=== PATIENT | male | born 1940 | race Caucasian/White ===

== ENCOUNTER → 2017-09-28 11:10 | Outpatient (CLI) | payer MEDICARE, SELFPAY ==
[2017-09-28 12:13] LABS: Hematocrit 45.4 % (40-54); Hemoglobin 15.5 g/dl (13.0-16.5); Mean Corp Hgb Conc 34.1 g/gl (32-36); Mean Corpuscular Hgb 32.8 pg (27.0-32.0); Mean Platelet Vol. 11.3 fl (6.2-12.0); Platelet Count 131 K/mm3 (150-450); RBC Distribution Width CV 14.3 % (11.6-14.6); RBC Distribution Width SD 48.2 fl (35.1-43.9); Red Blood Count 4.73 M/mm3 (4.6-6.2); White Blood Count 6.4 K/mm3 (4.4-11.0)
[2017-09-28 12:28] LABS: Scan Indicated on CBC? Y/N NO
[2017-09-28 12:47] LABS: ALB/GLOB Ratio 1.2 RATIO (0.9-2.4); AST(SGOT) 21 U/L (15-37); Alanine Aminotransfer ALT/SGPT 20 U/L (16-61); Albumin, Serum 3.8 g/dL (3.2-5.0); Alkaline Phosphatase 65 U/L (45-117); Anion Gap 6 (5-15); BUN 15 mg/dL (7-18); BUN/Creat Ratio 17.5 RATIO (10-20); Calcium,Total 8.7 mg/dL (8.5-10.1); Chloride 104 mmol/L (98-107); Creatinine, Serum 0.86 mg/dL (0.70-1.30); EST Glomerular Filtration Rate 92 mL/min (>60); Est Glom Filt Rate - Afr Amer 111 mL/min (>60); Globulin 3.2 g/dL (2.2-4.2); Glucose 91 mg/dL (74-106); Potassium 3.6 mmol/L (3.5-5.1); Sodium Level 139 mmol/L (136-145); Thyroid Stim Hormone (TSH) 1.31 uIU/mL (0.358-3.74)
== END ==
PROVIDERS: Family Provider Family Medicine; PCP Family Medicine; Visit Provider Family Medicine
DX: I48.91 Unspecified atrial fibrillation (principal)
CPT/HCPCS: 36415; 80053; 84443; 85027

== ENCOUNTER → 2018-04-06 14:00 | Outpatient (CLI) | payer MEDICARE, SELFPAY ==
--- NOTE | 2018-04-06 14:00 | LES_PTH ---
PATIENT: DARRELL PRIETO LOC: [facility] U#:[id number] AGE/SX: 85/M ROOM: RE04/06/[address]: Dr. Kwesi Mayorga MD : 1940 BED: DIS: SPEC #: [id number] RECD: 04/06/18 16:10 STATUS: OG MARYLU #: [id number] JOSÉ MANUEL: 04/06/18 14:[address]: Kwesi Mayorga DEPT: SURGICAL PATHOLOGY RECD BY: Nohemi Yun ENTERED: 04/07/18 09:17 SP TYPE: Lesion OTHR DR: Dr. Van Barfield MD Tissues: Postauricular region Procedures: Surgery Specimen Level IV HEADER OPERATION: Excision, right postauricular lesion PRE-OP DIAGNOSIS: uncertain neoplasm TISSUE SUBMITTED: Right postauricular tissue MICROSCOPIC DIAGNOSIS Right postauricular skin lesion, excisional biopsy: Inflamed benign verrucous keratosis. SJ:jake 04/08/18 MICROSCOPIC DESCRIPTION Slides are reviewed. GROSS DESCRIPTION Received in fixative is one container labeled with the patient's name and designated right postauricular area. The specimen consists of a blanco-white skin ellipse measuring 2 x 1 cm and up to 0.3 cm in thickness. A suture is present at one tip, however, it is not oriented. The suture tip is assigned as 12 o'clock, opposite tip 6 o'clock, one peripheral margin including 3 o'clock and opposite peripheral margin 9 o'clock. The specimen is inked as follows: 12 o'clock tip - yellow, 6 o'clock tip - green, 3 o'clock margin - black and 9 o'clock margin - blue. There is a raised lesion on the surface measuring 0.5 x 0.5 x 0.2 cm. The entire specimen is submitted as follows: 1 - tip and portion of uninvolved skin, 2 - rest of the specimen. / CARLOS A:jake 04/07/18 TC:5 [facility]: [id number]
== END ==
PROVIDERS: Family Provider Family Medicine; PCP Family Medicine; Referring Provider Surgery; Visit Provider Surgery
DX: L82.0 Inflamed seborrheic keratosis (principal)
CPT/HCPCS: 88305

== ENCOUNTER → 2018-12-13 | Outpatient (CLI) | payer MEDICARE, SELFPAY ==
--- NOTE | 2018-12-13 12:46 | RAD_ITS ---
HISTORY: coughing up blood for a couple days EXAM: XR Chest 2 Views: COMPARISON: None FINDINGS: # of images incl. 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 Right IJ single-lumen port is accessed. Catheter tip terminates superimposed over the interstitial location of the SVC and the right main bronchus. Lungs are hyperexpanded with some flattening of the diaphragm Heart is enlarged. Kyphoscoliosis with multilevel degenerative disc disease. Shoulder arthritis. Sternal wires. Calcific plaque within the aortic arch. Enlarged central pulmonary arteries. Pulmonary vascularity is indistinct. Small pleural effusions. RAD/Chest PA and Lateral IMPRESSION: Evidence to suggest possible mild CHF. Query pulmonary artery hypertension. . at 0131 Reported and signed by: Marcello Holt MD Electronically Signed: Marcello Holt MD at 1:30 EDT Tel , Service support ,
[2018-12-13 14:17] LABS: Hematocrit 44.7 % (40-54); Hemoglobin 14.8 g/dl (13.0-16.5); Mean Corp Hgb Conc 33.1 g/gl (32-36); Mean Corpuscular Hgb 30.7 pg (27.0-32.0); Mean Corpuscular Volume 92.7 fL (80-94); Mean Platelet Vol. 11.3 fl (6.2-12.0); Platelet Count 148 K/mm3 (150-450); RBC Distribution Width CV 13.9 % (11.6-14.6); RBC Distribution Width SD 45.8 fl (35.1-43.9); Red Blood Count 4.82 M/mm3 (4.6-6.2); White Blood Count 6.9 K/mm3 (4.4-11.0)
[2018-12-13 14:19] LABS: Scan Indicated on CBC? Y/N NO
== END | disposition home or self-care (01) ==
PROVIDERS: Family Provider Family Medicine; PCP Family Medicine; Referring Provider Family Medicine; Visit Provider Family Medicine
DX: R05 Cough (principal); R04.2 Hemoptysis
CPT/HCPCS: 36415; 71046; 85027

== ENCOUNTER 2019-02-14 05:44 | Day surgery (SDC) | payer MEDICARE, SELFPAY ==
--- NOTE | 2019-02-03 01:17 | HP_ITS ---
Intake Vital Signs 02/03/19 Body Mass Index (BMI) 28.7 02/03/19 Height 5 ft 3 in 02/03/19 Weight: 171 lb 02/03/19 Body Mass Index (BMI) 30.2 02/03/19 Blood Pressure 129/76 H 02/03/19 Blood Pressure Location Rt brachial 02/03/19 Blood Pressure Position Sitting 02/03/19 Respiratory Rate 18 02/03/19 Pulse Rate 56 L 02/03/19 Pulse Source Monitor 02/03/19 Temperature 97.6 F L 02/03/19 Pulse Ox 94 02/03/19 Oxygen Delivery Method room air Intake Visit Reasons: C-Scope [facility] Patient 06/25/15 Chief Complaint: excision right ear lesion, left ear shave bx Electrical Laboratory Technician Required: No Is patient in pain?: No Allergies KALEIGH Inhibitors Adverse Reaction (Verified 02/03/19 13:00) Other levofloxacin [From Levaquin] Adverse Reaction (Verified 02/03/19 13:00) aching legs trouble walking Medications Carvedilol [Coreg (Beta Brenda)] 25 mg PO BID 08/11/13 [History Confirmed 02/03/19] Clonazepam [Klonopin] 0.5 mg PO TID 08/11/13 [History Confirmed 02/03/19] Digoxin [Lanoxin] 125 mcg PO DAILY 08/11/13 [History Confirmed 02/03/19] Furosemide [Lasix] 40 mg PO DAILY 08/11/13 [History Confirmed 02/03/19] Losartan Potassium [Cozaar] 100 mg PO DAILY 08/11/13 [History Confirmed 02/03/19] Multivitamins,Ther W-Minerals [Multivitamin With Minerals] 1 tab PO DAILY 08/11/13 [History Confirmed 02/03/19] Niacin SA [Niaspan] 1,000 mg PO QHS 08/11/13 [History Confirmed 02/03/19] Potassium Chloride [K-Dur] 10 meq PO DAILY 08/11/13 [History Confirmed 02/03/19] Ascorbic Acid [Vitamin C] 500 mg PO DAILY@0800 07/11/15 [History Confirmed 02/03/19] Aspirin E.C. [Ecotrin] 81 mg PO QHS 07/11/15 [History Confirmed 02/03/19] Warfarin [Coumadin ([facility])] 2.5 mg PO SUTUTHFRSA 01/15/16 [History Confirmed 02/03/19] Warfarin [Coumadin ([facility])] 3 mg PO MOWE 01/15/16 [History Confirmed 02/03/19] pravastatin 10 mg tablet 10 mg PO DAILY 02/03/19 [History Confirmed 02/03/19] [facility] Medical History (Updated 02/03/19 @ 13:15 by Kwesi Mayorga MD) Personal history of colonic polyps (Acute) Personal history of colon cancer, stage III (Acute) Skin lesion of face (Acute) CHF (congestive heart failure) (Chronic) Colon cancer (Chronic) Acute cholecystitis (Acute) History of stroke (Chronic) Hyperlipidemia (Chronic) Hypertension (Chronic) Coronary artery disease (Chronic) Surgical History (Updated 02/03/19 @ 12:59 by Angela Cox) 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) History of colonoscopy (Acute ~2017) History of cholecystectomy (Acute) History of colon surgery (Acute) History of heart bypass surgery (Acute) History of left hip replacement (Acute) History of left knee replacement (Acute) Hx of cataract surgery (Acute) Family History Father Hypertension Heart disease Social History (Updated 02/03/19 @ 13:17 by Kwesi Mayorga MD) Smoking Status: Never smoker alcohol intake: never substance use type: does not use HPI HPI HPI: DARRELL PRIETO, is a 78 M who presents to the office today for HPI HPI Surgical H&P: Yes HPI: DARRELL PRIETO, is a 78 M who presents to the office today for surgical consultation regarding a personal history of metastatic sigmoid colon cancer as well as a personal history of tubular adenomas and tubulovillous adenomas of the colon. The patient has atrial fibrillation. He is on chronic Coumadin anticoagulation. Most recently September 04, 2016 I performed a colonoscopy with polypectomy. He had a tortuous sigmoid colon. Small sessile appearing polyp was identified in the cecum. Cold forceps were used for that tubular adenoma. A pedunculated polyp was seen in the mid transverse colon. This was more difficult to remove. He was recently seen January 16, 2019 by Kristie Hitchcock in follow-up of his colon cancer. He has a history of coronary artery disease with coronary bypass grafting x5 in 2005. Atrial fibrillation and history of left ventricular thrombus and obstructive cardiovascular disease in 2006. Hyperlipidemia hypertension ischemic cardiopathy I and congestive heart failure. Generally 12/2015 had a laparoscopic sigmoid colectomy. 5 cm adenocarcinoma low- grade 3 cm from the staple margins 17 lymph nodes were removed and all had cancer. The patient had FOLFOX therapy. States that his most recent CEA level is 1.1. The patient was seen by cardiology December 23 at the [facility]. The patient is felt to remain stable with about without apparent symptoms to suggest angina cardiac decompensation paroxysmal atrial fibrillation or claudication. Ongoing medical treatment recommended. ROS General General: Yes colon cancer; no weight change, appetite, fatigue, breast cancer or weakness HEENT HEENT: Yes eye surgery; no difficulty swallowing, eye injury, swollen glands or hoarseness Endo Endocrine: No thyroid disease, diabetes mellitus, thyroid cancer, Hair loss, heat intolerance or cold intolerance Skin Skin: No rash or changing moles Breast Breast: No left breast lump, right breast lump, nipple discharge, breast pain, abnormal mammogram, abnormal US or breast enlargement Musc Musculoskeletal: Yes arthritis; no back problems, rheumatoid arthritis, gout or joint pain Cardio Cardiovascular: Yes pacemaker, heart disease, atrial fibrillation and high blood pressure; no murmur, heart attack, heart stent, palpitations, shortness of breat with exertion or chest pain Psych Psychiatric: No depression, anxiety or hearing voices Resp Respiratory: No shortness of breath, No sleep apnea, No cough, No COPD, No asthma, No emphysema, No wheezing Gastro Gastrointestinal: No abdominal pain, No nausea or vomiting, No diarrhea, No constipation, No blood in stool, No acid reflux, No hemorrhoids, No ulcers, No gallbladder problem, No black,tarry stools Bin Hematologic: No blood thinners, No blood disorders, No bleeding, No anemia, No blood clots Neuro Neurologic: No system reviewed and no additional complaints, except as docu, No as per HPI, No abnormal walking, No abnormal hearing, No abnormal movements, No abnormal speech, No behavioral changes, No burning sensations, No confusion, No seizure-like activity, No unsteadiness, No dizziness, No localized weakness, No frequent falls, No headache(s), No lack of coordination, No loss of vision, No memory loss, No numbness, No other visual disturbances, No radiating pain, No restless legs, No sensory deficit, No fainting, No tingling, No tremor(s), No weakness, No other Exam Const General: cooperative, comfortable, no acute distress Nutritional Appearance: overweight Orientation: alert, awake, oriented x3 Chest Breast Palpation: No nipple discharge Other: Well-healed median sternotomy incision Resp Effort & Inspection: normal respiratory effort Auscultation: clear to auscultation bilaterally Cardio Rate: regular rate Rhythm: regular rhythm Heart Sounds: no murmurs GI Palpation: soft, no hepatosplenomegaly Auscultation: normal bowel sounds Skin General: no rashes or lesions noted Extrem General: no calf tenderness bilaterally Psych Affect: normal affect Assessment & Plan Problems 1. Personal history of colon cancer, stage III Z85.038 2. Personal history of colonic polyps Z86.010 Plan I am recommending the patient colonoscopy with possible biopsy or polypectomy. On all of his endoscopic evaluations he has had polyps or malignancy identified. He is aware of the technique, benefit, risks and alternatives. Because of his cardiac risk we will utilize monitored anesthesia care. His previous bowel prep was borderline so we will offer a 2-day prep. We will have him hold his Coumadin 3 days preoperatively. He has had an opportunity to ask and have questions answered. We will schedule and proceed at his discretion. I appreciate the ongoing opportunity of assisting with his surgical care. TC: Dr. Sterling Bradley and Dr. Van Barfield and Kristie Hitchcock, [facility] Kwesi Mayorga M.D., F.A.C.S. Coding Level of Care Code Off vis,est,level 3 Diagnoses Personal history of colon cancer, stage III Z85.038 Personal history of colonic polyps Z86.010 02/03/19 1317 <Electronically signed by Kwesi sainz MD> Date _ Kwesi Mayorga MD I have re-examined the patient. There are no clinical changes since date of exam.
[2019-02-03 13:17] VITALS: BMI 28.7
--- NOTE | 2019-02-14 | COLBX_PTH ---
PATIENT: DARRELL PRIETO LOC: EN U#:[id number] AGE/SX: 78/M ROOM: RE02/14/[address]: Dr. Kwesi Mayorga MD : 1940 BED: DIS: 02/14/2019 SPEC #: [id number] RECD: 02/14/19 11:56 STATUS: OG MARYLU #: [id number] JOSÉ MANUEL: 02/14/19 00:[address]: Kwesi Mayorga DEPT: SURGICAL PATHOLOGY RECD BY: Ivan Lobato ENTERED: 02/14/19 11:59 SP TYPE: COLON BX WALLY DR: Dr. Van Barfield MD Tissues: A - Cecum, NOS B - Transverse colon C - Descending colon D - Sigmoid colon biopsy Procedures: Surgery Specimen Level IV HEADER OPERATION: Colonoscopy (MAC) PRE-OP DIAGNOSIS: Personal history colon polyps TISSUE SUBMITTED: A - Cecal polyp, B - Distal transverse colon polyps, C - Descending colon polyp, D - Proximal sigmoid colon polyp MICROSCOPIC DIAGNOSIS A. Cecal polyp: Fragments of tubular adenoma. B. Distal transverse colon polyp, biopsy: Fragments of tubular adenoma. Fragment of hyperplastic polyp, inflamed. C. Descending colon polyp, biopsy: Tubular adenoma. Hyperplastic polyp, inflamed. Fecal debris. D. Proximal sigmoid colon polyp, biopsy: Cauterized fragment of colonic mucosa with hyperplastic change. AM:jake 02/15/19 MICROSCOPIC DESCRIPTION Slides are reviewed. GROSS DESCRIPTION A - Received in fixative is one container labeled with the patient's name and designated cecal polyp. The specimen consists of multiple irregular fragments of blanco-pink soft tissue mixed with fecal material that in aggregate measure 2 x 0.1 x 0.1 cm. The specimen is totally submitted in one cassette. B - Received in fixative is one container labeled with the patient's name and designated distal transverse colon polyp. The specimen consists of multiple irregular fragments of light blanco soft tissue that in aggregate measure 1.5 x 0.2 x 0.1 cm. The specimen is totally submitted in one cassette. C - Received in fixative is one container labeled with the patient's name and designated descending colon polyp. The specimen consists of multiple irregular fragments of light blanco soft tissue mixed with fecal material that in aggregate measure 2 x 0.5 x 0.1 cm. The specimen is totally submitted in one cassette. D - Received in fixative is one container labeled with the patient's name and designated proximal sigmoid colon polyp. The specimen consists of one irregular fragment of light blanco soft tissue that measures 0.3 x 0.3 x 0.1 cm. A few fragments of fecal material are also noted. The specimen is totally submitted in one cassette. / CARLOS A:jake 02/14/19 TC:5 CPT: 42176 x4
[2019-02-14 06:13] VITALS: BP 89/59; PULSE 64; RESP 16; TEMP 36.4; O2SAT 95; BMI 28.8
[2019-02-14 06:56] LABS: Prothrombin Time (Protime)PT. 22.3 SECONDS (11.7-14.9)
[2019-02-14 07:31] VITALS: BP 89/49; BP 93/39; PULSE 57; RESP 16; TEMP 36.3; O2SAT 98
[2019-02-14 07:37] VITALS: BP 106/57; BP 89/49; PULSE 57; RESP 16; O2SAT 97
--- NOTE | 2019-02-14 07:38 | OP.ENDO_ITS ---
02/14/2019 Ghanshyam Barfield [address] [place] [address] Re : Colonoscopy procedure for Federico Coronel Dear Dr. Barfield This procedure was performed on Thursday, February 14, 2019. My impressions and recommendations are as follows: Impressions : - Non-thrombosed external hemorrhoids, non-thrombosed internal hemorrhoids, internal hemorrhoids that prolapse with straining, but spontaneously regress to the resting position (Grade II) and enlarged prostate found on digital rectal exam. - One 4 mm polyp in the cecum, removed with a cold snare. Resected and retrieved. - One 3 mm polyp in the proximal transverse colon, removed with a cold snare. Incomplete resection. Resected tissue not retrieved. - One 5 mm polyp in the distal transverse colon, removed with a cold snare. Resected and retrieved. - One 7 mm polyp in the distal transverse colon, removed with a cold biopsy forceps and removed with a hot snare. Resected and retrieved. Clip was placed. - One 4 mm polyp in the descending colon, removed with a hot snare. Resected and retrieved. - One 4 mm polyp in the proximal sigmoid colon, removed with a hot snare. Resected and retrieved. - Diverticulosis in the sigmoid colon. - Patent end-to-end colo-colonic anastomosis. Recommendations : - Discharge patient to home. - Resume previous diet. - Continue present medications. - Telephone my office for pathology results in 1 week. - Repeat colonoscopy in 2 years for surveillance based on pathology results. My findings are described in the full procedure note, which is enclosed. If I can be of further assistance, please feel free to contact me at Doctor phone number(s): Work: . Sincerely, Kwesi Mayorga MD 02/14/2019 7:37:42 AM This report has been signed electronically.
[2019-02-14 07:41] VITALS: BP 101/43; BP 89/49; PULSE 55; RESP 14; O2SAT 98
[2019-02-14 07:46] VITALS: BP 89/49; BP 94/49; PULSE 56; RESP 14; TEMP 36.2; O2SAT 97
[2019-02-14 08:32] VITALS: BP 89/49
== END 2019-02-14 08:32 | disposition home or self-care (01) ==
LOC: EN 05:44 → AC 05:45
PROVIDERS: Family Provider Family Medicine; PCP Family Medicine; Referring Provider Family Medicine; Visit Provider Surgery
PROC: 0DJD8ZZ Inspection of Lower Intestinal Tract, Via Natural or Artificial Opening Endoscopic (ICD-10-PCS; CPT 45378; principal; 2019-02-14 06:55)
DX: D12.0 Benign neoplasm of cecum (principal); D12.3 Benign neoplasm of transverse colon; D12.4 Benign neoplasm of descending colon; K51.40 Inflammatory polyps of colon without complications; Z98.0 Intestinal bypass and anastomosis status; Z86.010 Personal history of colon polyps; K64.1 Second degree hemorrhoids; K64.4 Residual hemorrhoidal skin tags; K57.30 Diverticulosis of large intestine without perforation or abscess without bleeding; N40.0 Benign prostatic hyperplasia without lower urinary tract symptoms; I11.0 Hypertensive heart disease with heart failure; I50.9 Heart failure, unspecified; I25.10 Atherosclerotic heart disease of native coronary artery without angina pectoris; I48.91 Unspecified atrial fibrillation; I25.5 Ischemic cardiomyopathy; M19.90 Unspecified osteoarthritis, unspecified site; E78.00 Pure hypercholesterolemia, unspecified; Z85.038 Personal history of other malignant neoplasm of large intestine; Z86.73 Personal history of transient ischemic attack (TIA), and cerebral infarction without residual deficits; Z87.19 Personal history of other diseases of the digestive system; Z90.49 Acquired absence of other specified parts of digestive tract; Z95.810 Presence of automatic (implantable) cardiac defibrillator; Z95.1 Presence of aortocoronary bypass graft; Z79.01 Long term (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 of 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; Z79.82 Long term (current) use of aspirin; Z79.899 Other long term (current) drug therapy
CPT/HCPCS: 45385; 85610; 88305; J7120; J2405

== ENCOUNTER → 2019-05-08 08:40 | Outpatient (CLI) | payer MEDICARE, SELFPAY ==
[2019-05-08 10:01] LABS: Hemoglobin 15.4 g/dL (13.0-16.5); Mean Corp Hgb Conc 32.1 g/dL (32-36); Mean Corpuscular Hgb 31.2 pg (27.0-32.0); Mean Corpuscular Volume 97.4 fL (80-94); Mean Platelet Vol. 11.3 fl (6.2-12.0); Platelet Count 161 K/mm3 (150-450); RBC Distribution Width CV 13.7 % (11.6-14.6); RBC Distribution Width SD 49.1 fl (35.1-43.9); Red Blood Count 4.93 M/mm3 (4.6-6.2); White Blood Count 7.1 K/mm3 (4.4-11.0)
[2019-05-08 10:40] LABS: ALB/GLOB Ratio 1.2 RATIO (0.9-2.4); AST(SGOT) 15 U/L (15-37); Alanine Aminotransfer ALT/SGPT 21 U/L (16-61); Albumin, Serum 3.8 g/dL (3.2-5.0); Alkaline Phosphatase 78 U/L (45-117); Anion Gap 5 (5-15); BUN 15 mg/dL (7-18); BUN/Creat Ratio 14.3 RATIO (10-20); Calcium,Total 8.9 mg/dL (8.5-10.1); Chloride 104 mmol/L (98-107); Cholesterol 128 mg/dL (200); Creatinine, Serum 1.05 mg/dL (0.70-1.30); EST Glomerular Filtration Rate 73 mL/min (>60); Est Glom Filt Rate - Afr Amer 88 mL/min (>60); Globulin 3.3 g/dL (2.2-4.2); Glucose 99 mg/dL (74-106); High Density Lipoprotein 34 mg/dL; Potassium 4.2 mmol/L (3.5-5.1); Protein, Total 7.1 g/dL (6.4-8.2); Sodium Level 143 mmol/L (136-145); Thyroid Stim Hormone (TSH) 1.22 uIU/mL (0.358-3.74); Triglycerides 156 mg/dL; Very Low Density Lipoprotein 31 mg/dL (5-40)
== END ==
PROVIDERS: Family Provider Family Medicine; PCP Family Medicine; Visit Provider Family Medicine
DX: I25.10 Atherosclerotic heart disease of native coronary artery without angina pectoris (principal)
CPT/HCPCS: 80053; 80061; 84443; 85027

== ENCOUNTER → 2019-11-29 14:21 | Outpatient (CLI) | payer MEDICARE, SELFPAY ==
--- NOTE | 2019-11-29 14:52 | VDLE_ITS ---
Reason For Study: Pain RIGHT LEFT GSV is normal. CFV is compressible, spontaneous, phasic, CFV is compressible, spontaneous, phasic, competent, and demonstrates normal competent and demonstrates normal augmentation. augmentation. FV is compressible, spontaneous, phasic, competent and demonstrates normal augmentation. POP V is compressible, spontaneous, phasic, competent and demonstrates normal augmentation. T/P Trunk is compressible. PTV is compressible. RT PerV is compressible. Large nonvascularized structure noted in theposterior proximal calf muslce. Procedure Exam performed in department. A preliminary report was called and/or faxed to [facility]. Interpretation Summary Deep veins of the right lower extremity are patent and compressible segmentally. There is no evidence of right lower extremity deep vein thrombosis. Valvular competence appears intact within the proximal deep venous system on the right . The right great saphenous vein appears patent and compressible segmentally. A large, non-vascular, heterogeneous structure is noted in the right, proximal, posterior calf muscle. This may represent a hematoma, though other pathologies should be excluded. Clinical correlation is advised. Ordering Physician: Ghanshyam Barfield Referring Physician: Ghanshyam Barfield Performed By: Kaitlyn Ramirez RVT
--- OUTSIDE RECORDS SUMMARY | 2020-04-23 14:42 | XMS RPT_ITS | CCD ---
:1940 External Reference #:[id number] Author Organization [facility] Care Team Providers Name Role Phone Julio Cesar Cesilia Unavailable Sascha Mckeon Unavailable NASEEM Unavailable Unavailable IMCA Unavailable Unavailable NASEEM Unavailable Unavailable NASEEM Unavailable Unavailable Marc Barfield Primary Care Provider Patrick Unavailable Allergies Reported Allergen Reaction(s) Severity Date of Onset Location Angiotensin Cough 09-03-2010 - [facility] Converting Enzyme System Rep ository (Kaleigh) Inhibitors Translations: [ KALEIGH INHIBITORS] levoFLOXacin Moderate, 07-08-2011 - [facility] ter Moderate Sports Medicine and Orthopaedics (8 [id number]) levoFLOXacin Swelling High 08-14-2005 - [facility] Translations: [ System Repos itory LEVOFLOXACIN] Medications Medication Name Sig Date Prescriber Location Ascorbic Acid ascorbic acid, vitamin C, [facility] Provider [facility] ([id number]) (VITAMIN C) 500 mg tablet Take 500 mg by mouth once daily. 0 Active Comment: Take 500 mg by mouth once da kristofer. aspirin BABY ASPIRIN 81 MG CHEW 07-08-2011 [facility] Sports ASPIRIN [id number] Medicine and Orthopaedics Dianne Alaniz ([id number]) aspirin 81 mg chewable tablet Ccf Provider [facility] Sports Medicine Take 81 mg by mouth once daily. 0 and Orthopaedics (75441) Active Comment: Take 81 mg by mouth once torin ly. carvedilol carvedilol (COREG) 25 07-03-[address] [facility] mg tablet Take 1 [facility] Sports Medi cine and tablet by mouth twice Orthop aedics (15647) daily. 180 tablet 3 07/03/2019 Active COREG 25 MG TABS 07-08-2011 [facility] Medicine CARVEDILOL [id number] Dianne luis Orthopaedics (15105) Katty Comment: Take 1 tablet by mouth twice daily. clonazePAM CLONAZEPAM 0.5 MG TABS 07-08-2011 [facility] Sports CLONAZEPAM Medici ne and Orthopaedics [id number] Dianne Alaniz ( 94835) Comment: Take 0.5 mg by mouth three t imes daily. digoxin digoxin (LANOXIN) 125 07-03-[address] [facility] mcg (0.125 mg) tablet [facility] Sports Medicine and Take 1 tablet by mouth Ortho paedics (69671) once daily. 90 tablet 3 07/03/2019 Active DIGOXIN TABS DIGOXIN TABS 07-08[place]2011 [facility] [id number] Dianne Alaniz and O rthopaedics (87787) DIGOXIN TABS DIGOXIN TABS 07-08-2011 [facility] [id number] Dianne Alaniz and O rthopaedics (94732) DIGOXIN TABS DIGOXIN TABS 07-08-2011 [facility] [id number] Dianne Alaniz and O rthopaedics (29822) Comment: Take 1 tablet by mouth once daily. fluticasone FLONASE 50 MCG/ACT SUSP 07-08-2011 - 03-19-2017 [facility] Sports Medicine and FLUTICASONE PROPIONATE Ortho paedics (13454) [id number] Alyson Harrell FLONASE 50 MCG/ACT SUSP 07-08-2011 [facility] Sports FLUTICASONE Medicine and Orthopaedics PROPIONATE [id number] Dianne Buckner (4 4691) Katty FLONASE 50 MCG/ACT SUSP 07-08-2011 - 03-19-2017 [facility] Sports Medicine a nd Orthopaedics FLUTICASONE PROPIONATE (42834) [id number] Alyson Harrell FLONASE 50 MCG/ACT SUSP 07-08-2011 [facility] Sports FLUTICASONE Medicine and Orthopaedics PROPIONATE [phone] Dianne M (4 4691) Stuartagley FLONASE 50 MCG/ACT SUSP 07-08-2011 [facility] Sports FLUTICASONE Medicine and Orthopaedics PROPIONATE [phone] Dianne M (4 4691) Stuartaglvicenta furosemide furosemide (LASIX) 40 07-03-2019 [facility] mg tablet Take 1 [facility] cine and tablet by mouth once Orthopa edics (26771) daily. 90 tablet 3 07/03/2019 [place] FUROSEMIDE TABS [place]08[place] [facility] [place] [id number] Dianne M and Orthopaedics (97212) Yeagley FUROSEMIDE TABS 07-08-2011 [facility]URO[place] TABS [id number] Dianne M and Orthopaedics (47616) Yeagley FUROSEMIDE TABS 07-08-2011 [facility] [place]URO[place] TABS [id number] Dianne M and Orthopaedics (73548) Katty Comment: Take 1 tablet by mouth once daily. Ipratropium Ipratropium [employer] [place] 08-16-2019 Rachelle ([facility]) [facility] (ATROVENT) 0.03 % [facility] (55208) nasal spray Use 2 Sprays in the nose once daily. 0 08/16/2019 Active Comment: Use 2 Sprays in the nose onc e daily. losartan losartan (COZAAR) 100 07-03-2019 [facility] mg tablet Take 1 [facility] and tablet by mouth once Orthopa edics (50634) daily. 90 tablet 3 07/03/2019 Active COZAAR 50 MG TABS 07-08-2011 [facility] Medicine LOSARTAN POTASSIUM [id number] Dianne and Orthopaedics (96771) Sita Alaniz Comment: Take 1 tablet by mouth once daily. multivitamin tablet multivitamin tablet Take 1 [facility] tablet by mouth once daily. (36938) 0 Active multivitamin tablet Take 1 tablet by mouth [facility] P [facility] (52186) once daily. 0 Active Comment: Take 1 tablet by mouth once daily. niacin NIACIN 500 MG TABS 07-08-2011 [facility] NIACIN Sports Med icine and [id number] Dianne Buckner Orthopaed [facility] (26758) Yeagley Potassium Chloride potassium chloride 07-03-2019 [facility] (KLOR-CON 10) 10 mEq [facility]ito (99460) tablet Indications: Essential hypertension Take 1 tablet by mouth once daily. 90 tablet 3 07/03/2019 Active Comment: Take 1 tablet by mouth once daily. tamsulosin tamsulosin ER (FLOMAX) 0.4 mg Take [facility] Pr [facility] (21346) 0.4 mg by mouth daily at bedtime. 0 Active Comment: Take 0.4 mg by mouth daily a t bedtime. warfarin COUMADIN 3 MG TABS 03-19-2017 [facility] Sports WARFARIN SODIUM [id number] Medicine and Orthopaedics Alyson Harrell (63515 ) Problems Active Problems Category Problem Name Status Date Location Acute cerebrovascular Cerebrovascular Active 06-18-2015 - [facility] disease accident (02892) Acute myocardial Myocardial infarction Active 01-15-2016 - [facility] infarction (88760) Cancer of colon Malignant tumor of Active 07-02-2015 - [facility] colon (11786) Cardiac dysrhythmias Atrial fibrillation Active 06-18-2015 - [facility] (70989) Conduction disorders Automatic implantable Active 02-28-2008 - [facility] cardiac defibrillator (41235 ) in situ Coronary Atherosclerotic heart Active 06-18-2015 - [facility] atherosclerosis and disease of chick[place] Sys tem (99351) other heart disease coronary artery without angina pectoris Disorders of lipid Dyslipidemia Active 11-16-2008 - [facility] metabolism (01753) Essential hypertension Essential hypertension Active 07-01-[address] [place] [address] (64897) Gout and other crystal Gout Active 07-01-2005 - [facility] arthropathies (84499) Heart valve disorders Mitral valve disorder Active 07-01-2005 - [facility] (32808) Osteoarthritis Degenerative joint Active 07-01-2005 - [facility] disease of ankle AND/OR Spor ts Medicine and foot Orthopaedics (4 5493) Other and ill-defined Acute ill-defined Active 07-01-2005 - 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 Unclassified Unknown / UNK(Unknown) Active 04-26-2017 - [facility] (47957) Unclassified SUMMARY [facility] (30945[facility] Unclassified Patient encounter Active 06-06-2013 - [facility] status (10883) Unclassified No current problems or Active [facility] disability Sports Medicine and Orthopaedics (4 4691) Past or Other Problems Category Problem Name Status Date Location Gastrointestinal Rectal hemorrhage Completed 05-14-2015 - [facility] hemorrhage (90548) Other connective tissue Arthrodesis status Completed 03-19-2017 - [facility] disease Sports Medicine and Orthopaedics (4 4691) Other non-traumatic Sacroiliac disorder Completed 08-19-2018 - [facility] joint disorders (02044) Other non-traumatic Ankle pain Completed 03-19-2017 - [facility] joint disorders Sports Medic ine and Orthopaedics (4 4691) Other non-traumatic Hip pain Completed 11-20-2011 - [place] joint disorders (66879) Pneumonia (except that Community acquired Completed 01-17-2016 - [facility] caused by tuberculosis pneumonia (4419 5) or sexually transmitted disease) Residual codes; Pain in buttock Completed 08-19-2018 - [facility] unclassified (03987) Superficial injury; Contusion of left Completed 09-28-2018 - [facility] contusion hip, initial (61700) encounter Results Result Name Value Range Unit Interpretation Flag Date Location No panel information on 2020-04-17 AV Delay Adaptive Paced 350 ms 2019 [facility] Minimum (ms) (93950) AV Delay Adaptive Sensed 325 ms 04-17 [facility] Minimum (ms) (64568) Battery Voltage 2.96 V 04-17-2020 [facility] (38636) BLANK _ 04-17-2020 [facility] (64174) Danny RA Pacing 2 V 04-17-2020 [facility] Amplitude (volts) (4 4195) Danny RA Pacing Polarity BI 04-17 [facility] (55723) Danny RA Sensing 0.5 mV 04-17-2020 [facility] Amplitude (mvolts) ( 48582) Danny RA Sensing BI 04-17-2020 [facility] Polarity (41578) Danny RV Pacing 2.5 V 04-17-2020 [facility] Amplitude (volts) (4 4195) Danny RV Pacing Polarity BI 04-17 [facility] (71931) Danny RV Sensing 0.5 mV 04-17-2020 [facility] Amplitude (mvolts) ( 70205) Danny RV Sensing BI 04-17-2020 [facility] Polarity (46666) Detection Configuration 1 - Zone 2019 [facility] (Vent) (69998) ICD FastVT DISABLED 04-17-2020 [place] DetectionStatus (441 95) ICD-AMS EPISODES 180 {beats}/min 04-17-2020 [facility] (43175) ICD-ATP Episodes (Vent) 0 2019 [facility] (63094) ICD-Device Mfg STJ 04-17-2020 [facility] (11955) ICD-LEADIMPEDANCEATRIAL 290 ohm 2019 [facility] (19157) ICD-Percent Pacing 1.6 % 04-17-2020 [facility] (Atrial) (56639) ICD-Percent Pacing 46 % 04-17-2020 [facility] (Vent) (45055) ICD-Shocks Aborted 0 04-17-2020 [facility] (Vent) (51303) QMJ-LYAOQS-KRTQNKKQX 0 0 [facility] (26315) ICD-SHOCKSABORTED 0 04-17-2020 [facility] (11803) ICD-SHOCKSDELIVEREDVENTR 0 04-17 [facility] ICULAR (29742) Implant Date 02/09/2017 04-17-2020 [facility] (96698) Implant Date 04/02/2009 04-17-2020 [facility] (56178) Lead Impedance (RV) 390 ohm 04-17-2020 [facility] (69046) Lead Impedance High 45 ohm 04-17-2020 [facility] Voltage (23867) [facility] 04-17-2020 [facility] (79745) Lead[facility]fg . [facility] 04-17-2020 [facility] (15768) Location RV 04-17-2020 [facility] (08012) Location RA 04-17-2020 [facility] (20830) Lower Rate (bpm) 50 {beats}/min 04-17-2020 [facility] (58560) Max Sensor Rate (bpm) 105 {beats}/min 2019 [facility] (01018) MDT_PROG_TACHY_ZONE_DETE ENABLED 04-17 [facility] CTIONS_STATUS (60621 ) Model 1699TC OptiSense 04-17-2020 [facility] (72889) Model 2357-40Q Fortify 04-17-2020 [facility] Jignesh HERBERT (72870) Model 7121Q Durata SJ4 04-17-2020 [facility] (04564) Pacing Mode DDD 04-17-2020 [facility] (00781) Serial Number [id number] 04-17-2020 [facility] (06819) Serial Number [id number] 04-17-2020 [facility] (76505) Serial Number [id number] 04-17-2020 [facility] (32487) Test Charge Energy 40 J 04-17-2020 [facility] (81917) Test Charge Time 9.1 s 04-17-2020 [facility] (99689) Therapy Status (Vent) Enabled 04-17-20 20 [facility] (71617) Thresh RA Capture 1 V 04-17-2020 [facility] Amplitude (volts) (4 5945) Thresh RA Capture 0.5 ms 04-17-2020 [facility] Duration (ms) (03988 ) Thresh RA Sensing 1.5 mV 04-17-2020 [facility] Amplitude (mvolts) ( 21416) Thresh RV Capture 1.25 V 04-17-2020 [facility] Amplitude (VOLTS) (4 4195) Thresh RV Capture 0.5 ms 04-17-2020 [facility] Duration (MS) (21793 ) Thresh RV Sensing 12 mV 04-17-2020 [facility] Amplitude (MVOLTS) ( 90705) Tracking Rate (bpm) 95 {beats}/min 04-17-20 [facility] (67433) VF Zone Detection 320 ms 04-17-2020 [facility] Interval (13217) VF Zone Therapy 0 ATP(s) + 6 04-17-2020 [facility] Configuration Shock(s) (75476 ) No panel information on 2020-04-16 [facility] (01986) progress on 2020-01 PROGRESS HNO ID: [id number] Normal 01-29-2020 [facility] Author: Kristie Hitchcock [place] ([id number]) Service: ? Author Type: Nurse Practitioner Type: Progress Notes Filed: 01/29/2020 2:44 PM Note Text: Chief Complaint Patient presents with: Established Patient HPI: Darrell Coronel is a 79 year old male who presents here t eli for follow up colon cancer. Per Dr. Bradley's previous note: H/o?CAD?(CABG x5 vessels 2005), atrial fibrillation, LV thro mbus, ASHD?(CABG x5 2005), hyperlipidemia, HTN, ischemic cardiomyo rolo?(ICD) and CHF. ?? He was seen by Dr. Mayorga for a scalp lesion and mentioned th at he was having rectal bleeding. He was scheduled for and underwent a colonoscopy (had not previously had one) on 06/25/2015. The patient was found to have diverticulosis of the sigmoid colon and descending colon. Tw o sessile polyps measuring 5 and 6 mm were observed at the hepatic fle xure. They were resected and retrieved. One 8 mm polyp was observed at the splenic flexure it was biopsied and a clip was placed. This polyp wa s pedunculated and was unable to be cauterized due to the ICD. There was a malignant-appearing mass in the distal sigmoid colon. It was injected at the distal margin. ?? CT scan done on 06/28/2015: Apple core type lesion seen within the sigmoid colon, with a ssociate irregularity. This lesion measures approximately 4-5 cm in l ength. Findings are concerning for colon carcinoma. No evidence for bowel obstruction. Prominence of the seminal vesicles as well as heterogeneity of the prostate gland. Consider correlation with PSA levels, at cli nical discretion. Sequela of remote granulomas disease, as above. Indeterminate 1.8 cm left adrenal nodule. Indeterminate pulmonary nodules seen within the left lower l obe, measuring up to 5 mm. ?? Patient underwent a laparoscopic sigmoid segmental colectomy on 07/17/2015. ?? Final pathology was significant for a 5 cm use in this adeno carcinoma of low grade. The tumor was noted to extend through the muscula ris propria into the subserosal adipose tissue. It was located 3 cm from the stapled resection margin. Perforation was not identified. Lymphovasc ular invasion was not identified. Tumor deposits were not identified. 17 l ymph nodes were removed. All 17 contained metastatic disease.?Immunohis tochemistry staining for MSI was negative. ?? Patient recovered well. ?? Previous therapy: 1) Adjuvant FOLFOX x9 cycles completed 01/08/2016. Patient pr esented to [facility] on 01/15/2016 with complaints of co ugh, increasing shortness of breath and wheezing. Found to have a n elevation of troponin and was admitted and started on Lasix. He was then transferred to the [facility]. He underwent a left heart catheterization which showed a patent ARIZMENDI-LAD as well as a patent SVG-RCA with left to right collaterals. Medical management was recom mended. He underwent a repeat echocardiogram which unfortunately showed a decline in EF from about 45% to about 20%. Therapy stopped following th at. ? No complaints. ?? Appetite:too good Energy level:Pretty good. Denies fevers or recent illness. Resp:denies?cough or sob?at rest Cardiac:denies chest pain/palpitations-followed by cardiolog y-off coumadin now GI:denies abd pain, n/v, moving bowels regularly :denies dysuria/hematuria Extrem:denies pain currently,?chronic?L LE pain,?R knee/hip? 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 Past medical history, appointments, medications, allergies r eviewed. No changes. EXAM: BP 125/68 Pulse (!) 57 Temp 36.5 ?C (97.7 ?F) (Temporal) Wt 73.5 kg (162 lb) BMI 29.16 kg/m? APPEARANCE Well appearing, alert, in no acute distress, well -hydrated, well nourished. HEART RRR with normal S1 and S2, no murmurs LUNG clear to auscultation LYMPH NODES No cervical lymphadenopathy, No supraclavicular lymphadenopathy and No axillary lymphadenopathy. ABDOMEN bowel sounds normoactive, soft, non-tender, non-dist ended, without organomegaly or palpable masses EXTREMITIES RLE chronic edema NEURO Awake, alert and oriented x 3, Normal gait and No invo luntary motions. SKIN Skin color, texture, turgor normal, no suspicious rashe s or lesions LABS: CEA: Pending ASSESSMENT/PLAN: 1. Malignant neoplasm of sigmoid colon (HCC) - ICD9: 153.3, ICD10: C18.7 Stage IIIC colon cancer. - ?No concerning findings on exam. - ?CEA pending. - Colonoscopy per Dr. Mayorga. - ?CT chest/abd/pelvis due in 2020. - ?Follow up in 6?months with CEA, after CT's-pending today' s CEA. - ?Pt. aware to call office with any questions/concerns. ? ? The patient indicates understanding of these issues an d agrees with the plan. ? ? All documentation from previous visit of 07/27/19-Dr. Carolina still/myself was copied and pasted, documentation has been reviewed and edite d as necessary for today's visit. ? Kristie Hitchcock APRN.POCKET ASSEMBLER ? cnovsp on 2020-01-11 0 CNOVSP Visit (SP) Office (NASEEM) Normal [place] [facility] DARRELL CORONEL ([id number]) 1940 M [place] Date Time Provider Department ([id number]) 01/29/20 10:30 AM KRISTIE HITCHCOCK During your visit today, we recorded the following informati on about you: Temperature Pulse Blood pressure Weight 97.7 degrees 57/minute 125/68 73.5 kg Kristie Hitchcock, MICHEL.POCKET ASSEMBLER 01/29/2020 2:44 PM Signed Chief Complaint Patient presents with: Established Patient HPI: Darrell Coronel is a 79 year old male who presents here today for follow up colon cancer. Per Dr. Bradley's previous note: H/o?CAD?(CABG x5 vessels 200 6), atrial fibrillation, LV thrombus, ASHD?(CABG x5 2005), hyperlipidemia, HTN, ischemic cardiomyopathy?(ICD) an d CHF. ?? He was seen by Dr. Mayorga for a scalp lesion and mei peralta that he was having rectal bleeding. He was scheduled for and underwent a colono scopy (had not previously had one) on 06/25. The patient was found to have diverticulosis of the sigmoid colon and thalia cending colon. Two sessile polyps measuring 5 and 6 mm were observed at the hepatic flexure. They were resected and retrieved. One 8 mm polyp was observed at the splenic flexure i t was biopsied and a clip was placed. This polyp was pedunculated and was unable to be cauterized due to the ICD. There was a malignant-appearing mass in the distal sigmoid colon. It was injected at the distal margin. ?? CT scan done on 06/28/2015: Apple core type lesion seen within the sigmoid colon, with a ssociate irregularity. This lesion measures approximately 4-5 cm in l ength. Findings are concerning for colon carcinoma. No evidence for bowel obstruction. Prominence of the seminal vesicles as well as heterogeneity of the prostate gland. Consider correlation with PSA levels, at cli nical discretion. Sequela of remote granulomas disease, as above. Indeterminate 1.8 cm left adrenal nodule. Indeterminate pulmonary nodules seen within the left lower l obe, measuring up to 5 mm. ?? Patient underwent a laparoscopic sigmoid segmental colectomy on 07/17/2015. ?? Final pathology was significant for a 5 cm use in this adenocarcinoma of low grade. The tumor was noted to extend through the muscu connor propria into the subserosal adipose tissue. It was located 3 cm from the stap led resection margin. Perforation was not identified. Lymphovascular invas ion was not identified. Tumor deposits were not identified. 17 lym ph nodes were removed. All 17 contained metastatic disease.?Imm unohistochemistry staining for MSI was negative. ?? Patient recovered well. ?? Previous therapy: 1) Adjuvant FOLFOX x9 cycles completed . Patient presented to [facility] on 01/15/2016 with complaints o f cough, increasing shortness of breath and wheezing. Amy d to have an elevation of troponin and was admitted and started on Lasix. He was then transferred to the main [facility]. He underwent a left heart catheterization which show ed a patent ARIZMENDI-LAD as well as a patent SVG-RCA with left to righ t collaterals. Medical management was recommended. He underwent a repeat echocardio gram which unfortunately showed a decline in EF from about 45% to about 20%. Therapy stopped following that. ? No complaints. ?? Appetite:too good Energy level:Pretty good. Denies fevers or recent illness. 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 Past medical history, appoin tments, medications, allergies reviewed. No changes. EXAM: BP 125/68 Pulse (!) 57 Temp 36.5 ?C (97.7 ?F) (Temporal) Wt 73.5 kg (162 lb) BMI 29.16 kg/m? APPEARANCE Well appearing, alert, in no acute distress, we ll-hydrated, well nourished. HEART RRR with normal S1 and S2, no murmurs LUNG clear to auscultation LYMPH NODES No cervical lymp hadenopathy, No supraclavicular lymphadenopathy and No axillary lymphadenopathy. ABDOMEN bowel sounds normoactive, soft, non-tender, non-dist ended, without organomegaly or palpable masses EXTREMITIES RLE chronic edema NEURO Awake, alert and oriented x 3, Normal gait and N o involuntary motions. SKIN Skin color, texture, turgor normal, no suspicious rashe s or lesions LABS: CEA: Pending ASSESSMENT/PLAN: 1. Malignant neoplasm of sigmoid colon (HCC) - ICD9: 153.3, ICD10: C18.7 Stage IIIC colon cancer. - ?No concerning findings on exam. - ?CEA pending. - Colonoscopy per Dr. Mayorga. - ?CT chest/abd/pelvis due in 2020. - ?Follow up in 6?months with CEA, after CT's-pending today' s CEA. - ?Pt. aware to call office with any questions/concerns. ? ? The patient indicates understanding of these iss ues and agrees with the plan. ? ? All documentation from previous visit of 07/27/19-Dr. Sita richmond/myself was copied and pasted, documentation trejo s been reviewed and edited as necessary for today's visit. ? Kristie Hitchcock APRN.POCKET ASSEMBLER ? Meenu Verma LPN 01/29/2020 10:32 AM Signed Est patient. Six month OV. 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 Discontinue saline lock post exam. If Pt. has a central line or IVAD, may access for administration according to maegan e specific nursing protocol. Once exam is complete flush line and de-ac cess according to line specific nursing protocol in the CT contra st administration guidelines link.Disp: 1 EachRfl: 0 enteric contrast (will be provided with radiology test)For C T CHESTABD/PEL W IVCON Routine order Administer, As Directed O ne Time Only, via Oral, Rectal, both Oral and Rectal, Enteric Tube, Stoma or Indwelling Catheter, Enteric Contrast as designated per ente baldo contrast guidelinesDisp: 1 EachRfl: 0 CREATININE BLD [SQCRET] Order #: [id number] FUTURE Follow-up and Disposition History Recorded Prescriptions as of 01/29/2020 Sig: TAMSULOSIN 0.4 MG CAPSULE Take 0.4 mg by mouth daily at* IPRATROPIUM BROMIDE 0.03 % NA* Use 2 Sprays in the nose once * CARVEDILOL 25 MG TABLET Take 1 tablet by mouth twice * LOSARTAN 100 MG TABLET Take 1 tablet by mouth once d* DIGOXIN 125 MCG (0.125 MG) TA* Take 1 tablet by mouth once d * FUROSEMIDE 40 MG TABLET Take 1 tablet by mouth once d* POTASSIUM CHLORIDE ER 10 MEQ * Take 1 tablet by mouth once d * CLONAZEPAM 0.5 MG TABLET Take 0.5 mg by mouth three ti* ASCORBIC ACID (VITAMIN C) 500* Take 500 mg by mouth once torin * MULTIVITAMIN TABLET Take 1 tablet by mouth once d* ASPIRIN 81 MG CHEWABLE TABLET Take 81 mg by mouth once trixie* IV CONTRAST (RADIOLOGY PROCED* CT Chest ABD/PEL-Inject, intr * ENTERIC CONTRAST (RADIOLOGY P* For CT CHESTABD/PEL W IVCON R * Problem List As Of Date 01/29/2020 Noted Resolved Coronary atherosclerosis of unspecified type of*07/01/2005 0 12/23/2018 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 Dyslipidemia [E78.5] More... Hypertension [I10] More... Atrial fibrillation [I48.20] 01/16/2016 01/17/2016 More... CAP (community acquired pneumonia) [J18.9] 01/17/2016 More... Colon cancer (HCC) [C18.9] 01/17/2016 More... SUMMARY 01/17/2016 More... 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 Six month OV. Meenu Verma LPN Encounter Status:Closed by KRISTIE HITCHCOCK POCKET ASSEMBLER on 01/29/20 cea on 2020-01-29 CEA 1.0 0.0-2.9 ng/mL Normal 01-29-2020 [facility] ([id number]) Comment: Result Comment: Test analyze d by the Wilian DxI method. Performed By: #### CEA ####C [facility] [place], [place] [phone] progress on 2019-12 PROGRESS HNO ID: [id number] Normal 01-01-2020 [facility] Author: Alexis Craft [place] ([id number]) Service: ? Author Type: Physician Type: Progress Notes Filed: 01/01/2020 1:59 PM Note Text: Alexis Craft MD Interventional Cardiology [address] [place] [id number] Chief Complaint Patient presents with: Heart Problem Cardiology follow up HISTORY OF PRESENT ILLNESS: Mr. Coronel is a 79 year old male seen today in follow-up t here are extensive cardiac history in the past history of bypass surg joby for severe three-vessel coronary artery disease in 2005 with 5 vessel b ypass graft done at the [facility] patient has severe LV syst olic dysfunction with ejection fraction 27% ICD inserted a year l ater Prior history of rectal bleed with history of stroke affecte d left side of his body patient using a cane Most recent ICD interrogation showed short-lived episodes of atrial tachycardia the longest one lasted 22nd he was started on Co umadin as a result of Coumadin he ended up with a large hematoma in his right lower leg Coumadin was discontinued Patient had no signs or symptoms of congestive heart failure No active angina Cardiac Risk Factors age (male over 45, female over 55), hyperlipidemia, history of smoking, hypertension, family history of CAD 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 PAST SURGICAL HISTORY Procedure Laterality Date - CABG, ARTERY-VEIN, FIVE 08/27/05 - COLONOSCOP W/ OR W/O [facility] SPEC 06-25-15 - COLONS W/REM POLYP HT BX 09/04/2016 - ICD (ICD) 03/19/06 and 04/03/09 - LAP COLECTOMY W COLOPROCTOST 07-17-15 - LAPAROSCOPIC CHOLEYCYSTECTOMY 08/12/2013 - PAST SURGICAL HISTORY OF 1993 and 1994 calcium deposits removed left ankle - REMOVAL MISSY VAD W PORT/PUMP Right 12/18/2016 Removal right IJ port - S PACK PHACO 30K [id number] Left - SKIN BX, 1 LESION 07/30/14 Punch bx left scalp - TOTAL HIP REPLACEMENT 10/23/11 Hip replacement, total left - TOTAL KNEE REPLACEMENT 2001 Knee replacement, total, right - TUNNEL VAD W SUB Q PORT >=5 Right 2-9-16 FAMILY HISTORY Problem Relation Age of Onset - None Mother age 84 - Coronary Artery Disease Father age 75 - Coronary Artery Disease Sister CABG age 77. age 79 of brain tumor. - None Sister - None Sister - None Brother Social History Tobacco Use - Smoking status: Never Smoker - Smokeless tobacco: Never Used Substance Use Topics - Alcohol use: No - Drug use: No ALLERGIES Allergen Reactions - Levaquin [Levofloxa* Swelling - Kaleigh Inhibitors Cough Medications: Current Outpatient Medications Medication Sig Dispense Refill - Ipratropium [employer] (ATROVENT) 0.03 % nasal spray Use 2 Sp rays in the nose once daily. - carvedilol (COREG) 25 mg tablet Take 1 tablet by mouth twi ce daily. 180 tablet 3 - losartan (COZAAR) 100 mg tablet Take 1 tablet by mouth onc e daily. 90 tablet 3 - digoxin (LANOXIN) 125 mcg (0.125 mg) tablet Take 1 tablet by mouth once daily. 90 tablet 3 - furosemide (LASIX) 40 mg tablet Take 1 tablet by mouth onc e daily. 90 tablet 3 - potassium chloride (KLOR-CON 10) 10 mEq tablet Take 1 tabl et by mouth once daily. 90 tablet 3 - clonazePAM (KLONOPIN) 0.5 mg tablet Take 0.5 mg by mouth t hree times daily. - ascorbic acid, vitamin C, (VITAMIN C) 500 mg tablet Take 5 00 mg by mouth once daily. - multivitamin tablet Take 1 tablet by mouth once daily. - aspirin 81 mg chewable tablet Take 81 mg by mouth once torin ly. No current facility-administered medications for this visit. Review of Systems Constitutional: Negative for chills, diaphoresis, fever, mal aise/fatigue and weight loss. HENT: Negative for congestion, ear discharge, ear pain, hear ing loss, nosebleeds, sinus pain, sore throat and tinnitus. Eyes: Negative for blurred vision, double vision, photophobi a, pain, discharge and redness. Respiratory: Negative for cough, hemoptysis, sputum producti on, shortness of breath, wheezing and stridor. Cardiovascular: Negative for chest pain, palpitations, ortho pnea, claudication, leg swelling and PND. Gastrointestinal: Negative for abdominal pain, blood in stoo l, constipation, diarrhea, heartburn, melena, nausea and vomiti ng. Genitourinary: Negative for dysuria, flank pain, frequency, hematuria and urgency. Musculoskeletal: Negative for back pain, falls, joint pain, myalgias and neck pain. Skin: Negative for itching and rash. Neurological: Negative for dizziness, tingling, tremors, sen teddy change, speech change, focal weakness, seizures, loss of consciousne ss, weakness and headaches. Endo/Heme/Allergies: Negative for environmental allergies an d polydipsia. Does not bruise/bleed easily. Psychiatric/Behavioral: Negative for depression, hallucinati ons, memory loss, substance abuse and suicidal ideas. The patient is not nervous/anxious and does not have insomnia. Physical Examination: Vitals:BP 112/62 Pulse 62 Resp 16 Wt 160 lb (72.6kg) BP w/Orthostatic Vitals Date and Time Orthostatic BP Orthostatic Pulse BP Pulse BP P osition BP Site BP Cuff Size 01/01/20 1306 -- -- 112/62 62 -- -- -- Peak Flow Date and Time PF Resp 01/01/20 1306 -- 16 Last 2 Encounter Wt Readings: Date: Wt: 01/01/2020 160 lb (72.6 kg) 08/16/2019 169 lb 6.4 oz (76.8 kg) Physical Exam Constitutional: He is oriented to person, place, and time an d well-developed, well-nourished, and in no distress. No distr ess. HENT: Head: Normocephalic and atraumatic. Right Ear: External ear normal. Left Ear: External ear normal. Nose: Nose normal. Mouth/Throat: Oropharynx is clear and moist. Eyes: Pupils are equal, round, and reactive to light. Conjun ctivae and EOM are normal. Right eye exhibits no discharge. Left eye exhibi ts no discharge. Neck: Normal range of motion. Neck supple. No JVD present. N o tracheal deviation present. No thyromegaly present. Cardiovascular: Normal rate, regular rhythm, S1 normal, S2 n ormal, normal heart sounds and intact distal pulses. Exam reveals no fitzpatrick p, no S3, no S4 and no friction rub. No murmur heard. Pulmonary/Chest: Effort normal and breath sounds normal. No stridor. No respiratory distress. He has no wheezes. He has no rales. He exhibits no tenderness. Abdominal: Soft. Bowel sounds are normal. He exhibits no dis tension and no mass. There is no abdominal tenderness. There is no rebound and no guarding. Musculoskeletal: Normal range of motion. General: Edema present. No tenderness or deformity. Lymphadenopathy: He has no cervical adenopathy. Neurological: He is alert and oriented to person, place, and time. Skin: Skin is warm and dry. No rash noted. He is not diaphor etic. No erythema. No pallor. Psychiatric: Mood, memory, affect and judgment normal. Pertinent Labs: CBC: Hemoglobin (g/dL) Date Value 02/04/2017 15.2 Hematocrit (%) Date Value 02/04/2017 44.5 WBC (k/uL) Date Value 02/04/2017 5.48 Platelet Count (k/uL) Date Value 02/04/2017 118 BMP: Glucose (mg/dL) Date Value 06/29/2018 107 Potassium (mmol/L) Date Value 06/29/2018 4.7 Sodium (mmol/L) Date Value 06/29/2018 142 Chloride (mmol/L) Date Value 06/29/2018 103 CO2 (mmol/L) Date Value 06/29/2018 32 Creatinine (mg/dL) Date Value 07/18/2019 0.85 BUN (mg/dL) Date Value 06/29/2018 18 Anion Gap (mmol/L) Date Value 06/29/2018 7 Calcium (mg/dL) Date Value 06/29/2018 9.7 INR: Lipid Profile: Cholesterol, Total Date Value Ref Range Status 12/23/2017 153 <200 mg/dL Final Comment: <200 mg/dL, Desirable 200-239 mg/dL, Borderline high >239 mg/dL, High HDL Cholesterol Date Value Ref Range Status 12/23/2017 40 >39 mg/dL Final Comment: 40-59 mg/dL, Acceptable >59 mg/dL, High: Negative risk factor for coronary heart dis ease <40 mg/dL, Low: Positive risk factor for coronary heart dise ase LDL Cholesterol Date Value Ref Range Status 12/23/2017 95 <100 mg/dL Final Comment: <100 mg/dL, Optimal 100-129 mg/dL, Near optimal/above optimal 130-159 mg/dL, Borderline high 160-189 mg/dL, High >189 mg/dL, Very high Secondary prevention optimal LDL Cholesterol levels are olegario mmended to be < 70 mg/dL Triglyceride Date Value Ref Range Status 12/23/2017 92 <150 mg/dL Final Comment: <150 mg/dL, Normal 150-199 mg/dL, Borderline high 200-499 mg/dL, High >499 mg/dL, Very high Hemoglobin A1C: No results found for: HGBA1C TSH: No results found for: TSHREFL Assessment and Plan: 79 years old with complex cardiac history stable from the ca rdiac point of view on appropriate medication prior history of CAD with byp ass surgery and ICD defibrillator for reduction of sudden cardiac and severe left ventricular systolic dysfunction with LVEF of 27% Recent ICD interrogation shows short lived episodes of atria l tachycardia the longest loss is 20 seconds Assessing the pros and cons of anticoagulation and atrial fi brillation risk of stroke patient risk of bleeding exceeded the benefit of treatment with anticoagulation will discontinue Coumadin if patient trejo d recurrent episode of atrial fibrillation he need to be considered for left atrial appendage closure device to reduce the risk of stroke I kept him on the same medical therapy Follow-up in 6 months Follow up plannin months Electronically signed by Alexis Craft MD on January 01, 2020 , 1:44 PM The above note was partially created using a dictation recog [employer] software. A reasonable attempt has been made to correct any errors. ecg complete on ECG COMPLETE NAME : DARRELL CORONEL [facility] PID : [id number] Kyle scales ([id number]) : 1940 Gender : Male Race : ORD : [id number] Procedure Date : Jan 01 2020 13:10:37 Edit Date : Jan 08 2020 11:25:17 Diagnosis:SINUS RHYTHM WITH SINUS ARRHYTHMIA WITH 1ST DEGREE AV BLOCK WITH OCCASIONAL PREMATURE VENTRICULAR COMPLEXES LEFT AXIS DEVIATION COMPLETE RIGHT BUNDLE BRANCH BLOCK INFERIOR MYOCARDIAL INFARCTION , AGE UNDETERMINED ANTEROLATERAL INFARCTION , AGE UNDETERMINED ABNORMAL ECG Confirmed by SANDRA DANG M.D. ([id number]) on 01/08/2020 11:25 :11 AM Ventricular Rate : 62 BPM Atrial Rate : 62 BPM P-R Interval : 244 ms QRS Duration : 176 ms Q-T Interval : 434 ms QTC Calculation(Bazett) : 440 ms P [place] : 71 degrees R [place] : -33 degrees T [place] : 43 degrees Test Reason : Location : 189 : [facility] Overread By : SANDRA DANG M.D. Edited By : SANDRA DANG M.D. Referred By : ALEXIS CRAFT Acquired by : nathan canales cnov on 2020-01-01 [facility] Office Visit (STACY) Normal 01-01-[address] [place] [address] [facility] DARRELL CORONEL ([id number]) 1940 [facility] Date Time Provider Department ([id number]) 01/01/20 1:00 PM ALEXIS CRAFT During your visit today, we recorded the following informati on about you: Pulse Respiration Blood pressure Weight 62/minute 16/minute 112/62 72.6 kg Alexis Craft MD 01/01/2020 1:59 PM Signed Alexis Craft MD Interventional Cardiology [address] [place] [id number] Chief Complaint Patient presents with: Heart Problem Cardiology follow up HISTORY OF PRESENT ILLNESS: Mr. Coronel is a 79 year old male seen today in follow-up there are extensive cardiac history in the past history of bypass torres rgery for severe three-vessel coronary artery disease in 2005 with 5 vessel bypass graft done at the [facility] patient has severe LV systolic dysfunction with ejection fraction 27% ICD inserted a year later Prior history of rectal bleed with histo ry of stroke affected left side of his body patient using a cane Most recent ICD interrogatio n showed short-lived episodes of atrial tachycardia the longest one lasted he was start ed on Coumadin as a result of Coumadin he ended up with a large hematoma in his right lower leg Cou madin was discontinued Patient had no signs or symptoms of congestive heart failure No active angina Cardiac Risk Factors age (male over 45, female over 55), hyperlipidemia, history of smoking, hypertension, family history of CAD 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 PAST SURGICAL HISTORY Procedure Laterality Date - CABG, ARTERY-VEIN, FIVE 08/27/05 - COLONOSCOP W/ OR W/O [facility] SPEC 06-25-15 - COLONS W/REM POLYP HT BX 09/04/2016 - ICD (ICD) 03/19/06 and 04/03/09 - LAP COLECTOMY W COLOPROCTOST 07-17-15 - LAPAROSCOPIC CHOLEYCYSTECTOMY 08/12/2013 - PAST SURGICAL HISTORY OF 1993 and 1994 calcium deposits removed left ankle - REMOVAL MISSY VAD W PORT/PUMP Right 12/18/2016 Removal right IJ port - S PACK PHACO 30K [id number] Left - SKIN BX, 1 LESION 07/30/14 Punch bx left scalp - TOTAL HIP REPLACEMENT 10/23/11 Hip replacement, total left - TOTAL KNEE REPLACEMENT 2001 Knee replacement, total, right - TUNNEL VAD W SUB Q PORT >=5 Right 08-20-15 FAMILY HISTORY Problem Relation Age of Onset - None Mother age 84 - Coronary Artery Disease Father age 75 - Coronary Artery Disease Sister CABG age 77. age 79 of brain tumor. - None Sister - None Sister - None Brother Social History Tobacco Use - Smoking status: Never Smoker - Smokeless tobacco: Never Used Substance Use Topics - Alcohol use: No - Drug use: No ALLERGIES Allergen Reactions - Levaquin [Levofloxa* Swelling - Kaleigh Inhibitors Cough Medications: Current Outpatient Medications Medication Sig Dispense Refill - Ipratropium [employer] (ATROVENT) 0.03 % nasal spray Us e 2 Sprays in the nose once daily. - carvedilol (COREG) 25 mg tablet Take 1 tablet by mouth twi ce daily. 180 tablet 3 - losartan (COZAAR) 100 mg tablet Take 1 tablet by mouth once daily. 90 tablet 3 - digoxin (LANOXIN) 125 mcg (0.125 mg) tablet Take 1 tablet by mouth once daily. 90 tablet 3 - furosemide (LASIX) 40 mg tablet Take 1 tablet by mouth once daily. 90 tablet 3 - potassium chloride (KLOR-CON 10) 10 mEq tablet Take 1 tablet by mouth once daily. 90 tablet 3 - clonazePAM (KLONOPIN) 0.5 mg tablet Take 0.5 m g by mouth three times daily. - ascorbic acid, vitamin C, (VITAMIN C) 500 mg tablet Take 500 mg by mouth once daily. - multivitamin tablet Take 1 tablet by mouth once daily. - aspirin 81 mg chewable tablet Take 81 mg by mouth once torin ly. No current facility-administered medications for this visit. Review of Systems Constitutional: Negative for chills, diaphoresis, feve r, malaise/fatigue and weight loss. HENT: Negative for congestion, ear discharge, ear pain, hear ing loss, nosebleeds, sinus pain, sore throat and tinnitus. Eyes: Negative for blurred vision, doubl e vision, photophobia, pain, discharge and redness. Respiratory: Negative for cough, hemoptysis, sputum pr oduction, shortness of breath, wheezing and stridor. Cardiovascular: Negative for chest pain, palpitations, orthopnea, claudication, leg swelling and PND. Gastrointestinal: Negative for abdominal pain, blood i n stool, constipation, diarrhea, heartburn, melena, nausea and vomiting. Genitourinary: Negative for dysuria, flank pain, frequency, hematuria and urgency. Musculoskeletal: Negative for back pain, falls, joint pain, myalgias and neck pain. Skin: Negative for itching and rash. Neurological: Negative for d izziness, tingling, tremors, sensory change, speech change, focal weakness, seizures, loss of consciousness, wea kness and headaches. Endo/Heme/Allergies: Negative for enviro nmental allergies and polydipsia. Does not bruise/bleed easily. Psychiatric/Behavioral: Negative for depression, hallucinations, memory loss, substance abuse and suicidal ideas. The patient is not nervous/anxious and does not have insomnia. Physical Examination: Vitals:BP 112/62 Pulse 62 Resp 16 Wt 160 lb (72.6kg) BP w/Orthostatic Vitals Date and Time Orthostatic BP Orthostatic Pulse BP Pulse BP Position BP Site BP Cuff Size 01/01/20 1306 -- -- 112/62 62 -- -- -- Peak Flow Date and Time PF Resp 01/01/20 1306 -- 16 Last 2 Encounter Wt Readings: Date: Wt: 01/01/2020 160 lb (72.6 kg) 08/16/2019 169 lb 6.4 oz (76.8 kg) Physical Exam Constitutional: He is oriented to person, place, and time and well-developed, well-nourished, and in no distress. No distress. HENT: Head: Normocephalic and atraumatic. Right Ear: External ear normal. Left Ear: External ear normal. Nose: Nose normal. Mouth/Throat: Oropharynx is clear and moist. Eyes: Pupils are equal, round, and react ameya to light. Conjunctivae and EOM are normal. Right eye exhibits no discharge. Left eye exhibits n o discharge. Neck: Normal range of motion. Neck supple. No JVD present. N o tracheal deviation present. No thyromegaly present. Cardiovascular: Normal rate, regular rhythm, S1 normal, S2 normal, normal heart sounds and intact distal pulses. Exam reveals no fitzpatrick p, no S3, no S4 and no friction rub. No murmur heard. Pulmonary/Chest: Effort normal and breath sounds normal. No stridor. No respiratory distress. He has no wheezes. He has no rales. He exhibits no tenderness. Abdominal: Soft. Bowel sounds are normal. He exhibits no dis tension and no mass. There is no abdominal tenderness. There is no re bound and no guarding. Musculoskeletal: Normal range of motion. General: Edema present. No tenderness or deformity. Lymphadenopathy: He has no cervical adenopathy. Neurological: He is alert and oriented to person, place, and time. Skin: Skin is warm and dry. No rash note d. He is not diaphoretic. No erythema. No pallor. Psychiatric: Mood, memory, affect and judgment normal. Pertinent Labs: CBC: Hemoglobin (g/dL) Date Value 02/04/2017 15.2 Hematocrit (%) Date Value 02/04/2017 44.5 WBC (k/uL) Date Value 02/04/2017 5.48 Platelet Count (k/uL) Date Value 02/04/2017 118 BMP: Glucose (mg/dL) Date Value 06/29/2018 107 Potassium (mmol/L) Date Value 06/29/2018 4.7 Sodium (mmol/L) Date Value 06/29/2018 142 Chloride (mmol/L) Date Value 06/29/2018 103 CO2 (mmol/L) Date Value 06/29/2018 32 Creatinine (mg/dL) Date Value 07/18/2019 0.85 BUN (mg/dL) Date Value 06/29/2018 18 Anion Gap (mmol/L) Date Value 06/29/2018 7 Calcium (mg/dL) Date Value 06/29/2018 9.7 INR: Lipid Profile: Cholesterol, Total Date Value Ref Range Status 12/23/2017 153 <200 mg/dL Final Comment: <200 mg/dL, Desirable 200-239 mg/dL, Borderline high >239 mg/dL, High HDL Cholesterol Date Value Ref Range Status 12/23/2017 40 >39 mg/dL Final Comment: 40-59 mg/dL, Acceptable >59 mg/dL, High: Negative risk factor for coronary heart dis ease <40 mg/dL, Low: Positive risk factor for coronary heart dise ase LDL Cholesterol Date Value Ref Range Status 12/23/2017 95 <100 mg/dL Final Comment: <100 mg/dL, Optimal 100-129 mg/dL, Near optimal/above optimal 130-159 mg/dL, Borderline high 160-189 mg/dL, High >189 mg/dL, Very high Secondary prevention optimal LDL Cholest hero levels are recommended to be < 70 mg/dL Triglyceride Date Value Ref Range Status 12/23/2017 92 <150 mg/dL Final Comment: <150 mg/dL, Normal 150-199 mg/dL, Borderline high 200-499 mg/dL, High >499 mg/dL, Very high Hemoglobin A1C: No results found for: HGBA1C TSH: No results found for: TSHREFL Assessment and Plan: 79 years old with complex ca rdiac history stable from the cardiac point of view on appropriate medication prior history of CAD with bypass s urgery and ICD defibrillator for reduction of sudden cardiac and severe left ventricular systolic dysfunction with LVEF of 27% Recent ICD interrogation shows short lived episo thalia of atrial tachycardia the longest loss is 20 seconds Assessing the pros and cons of anticoagu lation and atrial fibrillation risk of stroke patient risk of bleeding exceeded the benefit of mary tment with anticoagulation will discontinue Coumadin if pat ient had recurrent episode of atrial fibrillation he need to be consid ered for left atrial appendage closure device to reduce the risk of stroke I kept him on the same medical therapy Follow-up in 6 months Follow up plannin months Electronically signed by Alexis Craft MD on January 01, 2020 , 1:44 PM The above note was partially created usi Rad dictation recognition software. A reasonable attempt has been made to correct any errors. Referring Provider: SELF [[id number]] Allergies As of Date: 01/01/2020 Noted Allergy Reaction LEVAQUIN (LEVOFLOXACIN) 08/14/2005 7 - Swelling KALEIGH INHIBITORS 09/03/2010 3 - Cough Date Reviewed: 01/01/2020 Reviewed by: Alexis Craft - Fully Assessed Reason for Visit: Heart Problem [54] Primary Visit Diagnosis:NSTEMI (non-ST elevated myocar dial infarction) ([facility]) [I21.4] Other Visit Diagnosis:Paroxysmal atrial fibrillation ([facility]) [ I48.0] Order(s):ECG COMPLETE [ECG01] Order #: [id number] FUTURE EKG [9370324] Order #: [id number] Prescriptions as of 01/01/2020 Sig: IPRATROPIUM BROMIDE 0.03 % NA* Use 2 Sprays in the nose once * CARVEDILOL 25 MG TABLET Take 1 tablet by mouth twice * LOSARTAN 100 MG TABLET Take 1 tablet by mouth once d* DIGOXIN 125 MCG (0.125 MG) TA* Take 1 tablet by mouth once d * FUROSEMIDE 40 MG TABLET Take 1 tablet by mouth once d* POTASSIUM CHLORIDE ER 10 MEQ * Take 1 tablet by mouth once d * CLONAZEPAM 0.5 MG TABLET Take 0.5 mg by mouth three ti* ASCORBIC ACID (VITAMIN C) 500* Take 500 mg by mouth once torin * MULTIVITAMIN TABLET Take 1 tablet by mouth once d* ASPIRIN 81 MG CHEWABLE TABLET Take 81 mg by mouth once trixie* Problem List As Of Date 01/01/2020 Noted Resolved Coronary atherosclerosis of unspecified type of*07/01/2005 0 12/23/2018 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 Dyslipidemia [E78.5] More... Hypertension [I10] More... Atrial fibrillation [I48.20] 01/16/2016 01/17/2016 More... CAP (community acquired pneumonia) [J18.9] 01/17/2016 More... Colon cancer (HCC) [C18.9] 01/17/2016 More... SUMMARY 01/17/2016 More... 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 Disc: Other Disposition: Return in about 6 months (around 07/02/2020). Follow-up and Disposition History Recorded Letter Text Encounter Status:Closed by ALEXIS CRAFT MD on 01/01/20 eder on 2019-12-12 EDER Telephone ([facility]) Normal 12-12-2019 [facility] DARRELL CORONEL ([id number]) 1940 [facility] Date Time Provider Department ([id number]) 12/12/19 [facility] During your visit today, we recorded the following informati on about you: Kellie Gonzalez, RN, RN 12/12/2019 9:23 AM Signed Pt called to see if he can be cleared for a MRI d/t trejo ving a hematoma on his leg. Pt has a [facility] awidla/mary jo. Called pt back and left message to call back. Allergies As of Date: 12/12/2019 Noted Allergy Reaction LEVAQUIN (LEVOFLOXACIN) 08/14/2005 7 - Swelling KALEIGH INHIBITORS 09/03/2010 3 - Cough Date Reviewed: 08/16/2019 Reviewed by: Rachelle ([facility]) [place] - Fully Assessed Reason for Visit: Question [4509] Cmt: MRI Prescriptions as of 12/12/2019 Sig: IPRATROPIUM BROMIDE 0.03 % NA* Use 2 Sprays in the nose once * CARVEDILOL 25 MG TABLET Take 1 tablet by mouth twice * LOSARTAN 100 MG TABLET Take 1 tablet by mouth once d* DIGOXIN 125 MCG (0.125 MG) TA* Take 1 tablet by mouth once d * FUROSEMIDE 40 MG TABLET Take 1 tablet by mouth once d* POTASSIUM CHLORIDE ER 10 MEQ * Take 1 tablet by mouth once d * COUMADIN ORAL Take 2.5 mg by mouth once torin* CLONAZEPAM 0.5 MG TABLET Take 0.5 mg by mouth three ti* ASCORBIC ACID (VITAMIN C) 500* Take 500 mg by mouth once torin * MULTIVITAMIN TABLET Take 1 tablet by mouth once d* ASPIRIN 81 MG CHEWABLE TABLET Take 81 mg by mouth once trixie* Problem List As Of Date 12/12/2019 Noted Resolved Coronary atherosclerosis of unspecified type of*07/01/2005 0 12/23/2018 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 Dyslipidemia [E78.5] More... Hypertension [I10] More... Atrial fibrillation [I48.20] 01/16/2016 01/17/2016 More... CAP (community acquired pneumonia) [J18.9] 01/17/2016 More... Colon cancer (HCC) [C18.9] 01/17/2016 More... SUMMARY 01/17/2016 More... 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] 08/19/2018 Buttock pain [M79.18] 08/19/2018 Hematoma of left hip [S70.02XA] 09/28/2018 Encounter Status:Closed by KELLIE [facility]ALEZ [facility] Normal 12-12-2019 [facility] DARRELL CORONEL ([id number]) 1940 M ([id number]) Date Time Provider Department 12/12/19 RACHELLE AGUILAR ([facility]) [facility] During your visit today, we recorded the following informati on about you: Rachelle Aguilar APRN.POCKET ASSEMBLER 12/12/2019 9:37 AM Signed 9:36 AM Rec'd call from pt who is as savanna whom he should contact regarding clearance for an MRI as it relates to his pacer/defib. Informed pt that he should contact the electrophysiology dep artment and provided him with the contact information for Dr. Nguyen's o ffice. Instructed to call back with any other questions or concerns . Rachelle Aguilar DNP, PERINATAL INSTRUCTOR, NP_C Allergies As of Date: 12/12/2019 Noted Allergy Reaction LEVAQUIN (LEVOFLOXACIN) 08/14/2005 7 - Swelling KALEIGH INHIBITORS 09/03/2010 3 - Cough Date Reviewed: 08/16/2019 [facility]: [facility] [place] - Fully Assessed Reason for Visit: Question [9453] Prescriptions as of 12/12/2019 Sig: IPRATROPIUM BROMIDE 0.03 % NA* Use 2 Sprays in the nose once * CARVEDILOL 25 MG TABLET Take 1 tablet by mouth twice * LOSARTAN 100 MG TABLET Take 1 tablet by mouth once d* DIGOXIN 125 MCG (0.125 MG) TA* Take 1 tablet by mouth once d * FUROSEMIDE 40 MG TABLET Take 1 tablet by mouth once d* POTASSIUM CHLORIDE ER 10 MEQ * Take 1 tablet by mouth once d * COUMADIN ORAL Take 2.5 mg by mouth once torin* CLONAZEPAM 0.5 MG TABLET Take 0.5 mg by mouth three ti* ASCORBIC ACID (VITAMIN C) 500* Take 500 mg by mouth once torin * MULTIVITAMIN TABLET Take 1 tablet by mouth once d* ASPIRIN 81 MG CHEWABLE TABLET Take 81 mg by mouth once trixie* Problem List As Of Date 12/12/2019 Noted Resolved Coronary atherosclerosis of unspecified type of*07/01/2005 0 12/23/2018 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 Dyslipidemia [E78.5] More... Hypertension [I10] More... Atrial fibrillation [I48.20] 01/16/2016 01/17/2016 More... CAP (community acquired pneumonia) [J18.9] 01/17/2016 More... Colon cancer (HCC) [C18.9] 01/17/2016 More... SUMMARY 01/17/2016 More... 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 Author Type: Nurse Practitioner Type: Progress Notes Filed: 08/16/2019 12:47 PM Note Text: Heart and Vascular [facility] Heart Failure Clinic OUTPATIENT VISIT DATE August 16, 2019 OUTPATIENT VISIT TYPE NEW PRIMARY CARE PHYSICIAN: Van Barfield MD REFERRING PHYSICIAN: Dr. Hernández CHIEF COMPLAINT: Patient presents with: New Patient Establish Care HISTORY OF PRESENT ILLNESS: Darrell Coronel is a 79 year old man with a history of co hallie cancer, paroxysmal atrial fibrillation, HTN, CVA, HLD, CAD (s/p bypa ss grafting x5 in 2005), ischemic myopathy (ICD) and chronic systolic he art failure who presents today for an initial visit to the Heart Failure Clinic. He is followed by Dr. Hernández from cardiology and was most recent ly seen by him on 07/03/2019 at which time his HF was stable. Today Darrell returns and reports that he continues to do we ll at home and verbalizes, feeling good. He tracks and monitors his daily weights and his home weights have remained stable and typically run betw een 168-171 lbs. His overall sx burden is minimal to none. He has had an ongoing but intermittent cough that has been addressed by his PCP for wh ich he was started on a daily nasal spray. He denies chest pain, palpit ations, fatigue, edema, abdominal edema, dyspnea, orthopnea, PND, sy ncope, dizziness or lightheadedness. Energy and appetite reported as, good. Eats a diet that is low in sodium (does not add salt to food, eats very little canned o r prepared foods) and he walking ~30 minutes daily. No acute concerns or complaints at this time. [place] his and his dog. Has 5 sons. Advanced directives h ave been completed and are scanned into [employer]. SOB: No Fatigue: No Orthopnea:No PND: No Edema:No Chest Pain:No (0/10) Palpitations:No Dizziness/Lightheadedness:No Syncope:No Appetite: good Diet:low salt (2000 mg) Fluid Restriction: No Regular Exercise: Yes: ~30 minutes/day while walking his dog PAST CARDIAC HISTORY: Heart failure: systolic Ischemic, coronary artery disease an d s/p CABG x5 in 2005. His cardiac history is also significant for paroxysmal atria l fibrillation, HTN, HLD,ischemic cardiomyopathy. Device: ICD. 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 PAST SURGICAL HISTORY Procedure Laterality Date - CABG, ARTERY-VEIN, FIVE 08/27/05 - COLONOSCOP W/ OR W/O [facility] SPEC 06-25-15 - COLONS W/REM POLYP HT BX 09/04/2016 - ICD (ICD) 03/19/06 and 04/03/09 - LAP COLECTOMY W COLOPROCTOST 07-17-15 - LAPAROSCOPIC CHOLEYCYSTECTOMY 08/12/2013 - PAST SURGICAL HISTORY OF 1993 and 1994 calcium deposits removed left ankle - REMOVAL MISSY VAD W PORT/PUMP Right 12/18/2016 Removal right IJ port - S PACK PHACO 30K [id number] Left - SKIN BX, 1 LESION 07/30/14 Punch bx left scalp - TOTAL HIP REPLACEMENT 10/23/11 Hip replacement, total left - TOTAL KNEE REPLACEMENT 2001 Knee replacement, total, right - TUNNEL VAD W SUB Q PORT >=5 Right 08-20-15 Social History Tobacco Use - Smoking status: Never Smoker - Smokeless tobacco: Never Used Substance Use Topics - Alcohol use: No - Drug use: No FAMILY HISTORY Problem Relation Age of Onset - None Mother age 84 - Coronary Artery Disease Father age 75 - Coronary Artery Disease Sister CABG age 77. age 79 of brain tumor. - None Sister - None Sister - None Brother ALLERGIES Allergen Reactions - Levaquin [Levofloxa* Swelling - Kaleigh Inhibitors Cough CURRENT MEDICATIONS: Current Outpatient Medications Medication Sig Dispense Refill - carvedilol (COREG) 25 mg tablet Take 1 tablet by mouth twi ce daily. 180 tablet 3 - losartan (COZAAR) 100 mg tablet Take 1 tablet by mouth onc e daily. 90 tablet 3 - digoxin (LANOXIN) 125 mcg (0.125 mg) tablet Take 1 tablet by mouth once daily. 90 tablet 3 - furosemide (LASIX) 40 mg tablet Take 1 tablet by mouth onc e daily. 90 tablet 3 - potassium chloride (KLOR-CON 10) 10 mEq tablet Take 1 tabl et by mouth once daily. 90 tablet 3 - WARFARIN SODIUM (COUMADIN ORAL) Take 2.5 mg by mouth once daily. - clonazePAM (KLONOPIN) 0.5 mg tablet Take 0.5 mg by mouth t hree times daily. - ascorbic acid, vitamin C, (VITAMIN C) 500 mg tablet Take 5 00 mg by mouth once daily. - multivitamin tablet Take 1 tablet by mouth once daily. - aspirin 81 mg chewable tablet Take 81 mg by mouth once torin ly. No current facility-administered medications for this visit. REVIEW OF SYSTEMS: GENERAL: Negative for: Weight loss or gain, Fever or Chills, Weakness and Sleep difficulties. HEENT: Positive for:Glasses NECK: Negative for: Swelling, Pain, Stiffness RESPIRATORY: Positive for: Cough GASTROINTESTINAL: Negative for: Trouble swallowing, Heartbur n, Change in bowel habits, Blood in stool, Dark black stools MUSCULOSKELETAL: Positive for: Chronic left sided weakness 2 /2 CVA NEUROLOGIC/PSYCHIATRIC: Positive for: Chronic left sided num bness and tingling 2/2 CVA SKIN: Negative for: Rash, Itching HEMATOLOGICAL/LYMPHATIC: Positive for: Easy bruising ENDOCRINE: Negative for: Heat or Cold Intolerance, Excessive Sweating, Frequent Urination, Frequent Thirst PHYSICAL EXAMINATION: 08/16/19 1117 BP: 125/64 Pulse: (!) 54 SpO2: 95% Weight: 76.8 kg (169 lb 6.4 oz) General: 79 year old, well-appearing man, accompanied by wif e, ambulates independently, no apparent distress Skin: No clubbing, no cyanosis. Eyes: Normal conjunctiva Neck: Neck veins are not distended, no carotid bruits Lungs: Chest clear to auscultation, respiratory effort bryant l on room air Heart: Rhythm: regular, Rate: bradycardia, no murmur Abdomen: Normal, Bowel Sounds: Present, Bruits: Absent Extremities: edema: Trace, pitting at RLE bay to ankle Peripheral Pulses: Normal, Capillary refill <2secs, strong p eripheral pulses ECHO: 07/30/2016: CONCLUSIONS: - Technically difficult exam due to body habitus. - Exam indication: Ischemic cardiomyopathy - The left ventricle is moderately dilated. There is moderat e concentric left ventricular hypertrophy. Left ventricular systolic function is moderately decreased. EF = 30 ? 5% (visual est.) Definity contrast used for endocardial border detection. Grade I left ventricular diastolic dysfunc tion. There is severe basilar septal prominence - The right ventricle is normal in size. Right ventricular s ystolic function is mildly decreased. - The left atrial cavity is mildly dilated. - Estimated right ventricular systolic pressure is 37 mmHg c onsistent with mild pulmonary hypertension. Estimated right atrial pressure is 1 0 mmHg. - Mild to moderate 1-2+ MR. - Trivial TR and PI - Technically difficult subcostal view. - No definite LV apical thrombus ? - Exam was compared with the prior echocardiographic exam performed on 01/16/2016. There is a slight improvement in the LV function. Otherwise, no significant change. at 3 :44:18 PM CARDIOVASCULAR MEDICINE TESTING: No Cardiovascular testing perfomed today. There were no tests performed for review. Learning Needs NEW or CONSULT patient: YES Do you have any educational need s related to your visit today? YES Are there any limiting factors that affect learning (includi ng physical limitations): None What method of teaching do you learn best from: Written Inst ruction - Hand-outs IMPRESSION: NYHA Functional Class: II Stage: C heart failure Darrell Coronel is a 79 year old man with a history of co hallie cancer, paroxysmal atrial fibrillation, HTN, HLD, CAD (s/p bypass gr afting x5 in 2005), ischemic myopathy (ICD) and chronic systolic heart fa ilure who presents today for an initial visit to the Heart Failure Cli [facility]. Overall, HF has remained stable and pt is euvolemic on exam. He is ta savanna all of his medications appropriately as well as making the necessar y lifestyle modifications to help ensure that he remains stable. PLAN AND RECOMMENDATIONS: 1. Provided pt with HF pt education binder and reviewed this in detail today. Specifically reviewed the HF zones and discussed trig gers of when to call the office. 2. Discussed, at length, the importance of limiting dietary sodium intake and the relationship between excessive dietary sodium and fl uid retention in the setting of HF. Discussed and reviewed the proper way to read a food label and the importance of tracking the mg of sodium p er service. Instructed that pt should limit dietary sodium consumption t o <2000 mg/day. 3. Discussed in great detail the importance of continuing to track and monitor daily weights and how this can be the earliest indic ator of decompensation. Instructed to continuing tracking these weig hts and to bring log with him to all subsequent cardiology visits. Inst ructed to contact office with any weight gain of 3-4 lbs over a 1-4 da y period. 4. Continue all current medications as instructed. 5. Activity as tolerated with rest breaks as warranted. 6. Advance Care Planning: Pt has advance directive and robert castro will, both of which are scanned into [employer].. 7. Provided pt with all contact information for HF clinic an d reviewed s/sx's of when to call along with s/sx's of cardiac and resp iratory emergency at which time he should seek emergency medical car e via the ED or 911. 8. RTC prn or with any change/increase in sx's. Instructed t o call with questions or concerns. 9. Pt and are agreeable to plan and verbalize understan ding. Followup appointment with Dr. Hernández on 01/02/2020. COUNSELING: We discussed the following non-pharmacological measures dania kulkarni this visit: ? Smoking and alcohol abstinence/cessation, if applicable ? Dietary and medication compliance ? Monitoring daily weights and blood pressures ? Exercise regimen ? When to call our office Heart Failure Education Booklet: information provided and re viewed today Medications reconciled at end of visit: yes I spent 35 minutes in this visit, with more than 50% of the time devoted to patient counseling. SIGNATURE: Rachelle Aguilar APRN.CNP PATIENT NAME: Darrell Coronel DATE: August 16, 2019 TIME: 12:46 PM cnov on 2019-08-16 CNOV Office Visit ([facility]) Normal 08-16-19 [facility] DARRELL CORONEL ([id number]) 1940 M ([id number]) Date Time Provider Department 08/16/19 11:00 AM RACHELLE AGUILAR (SKIP) [facility] During your visit today, we recorded the following informati on about you: Pulse Blood pressure Weight 54/minute 125/64 76.8 kg Rachelle Aguilar APRN.CNP 08/16/2019 12:47 PM Signed Heart and Vascular [facility] Heart Failure Clinic OUTPATIENT VISIT DATE August 16, 2019 OUTPATIENT VISIT TYPE NEW PRIMARY CARE PHYSICIAN: Van Barfield MD REFERRING PHYSICIAN: Dr. Hernández CHIEF COMPLAINT: Patient presents with: New Patient Establish Care HISTORY OF PRESENT ILLNESS: Darrell Coronel is a 79 year old man with a history of co hallie cancer, paroxysmal atrial fibrillation, HTN, CVA, HLD, C AD (s/p bypass grafting x5 in 2005), ischemic myopathy (ICD) and chron ic systolic heart failure who presents today for an initial visit to the Heart Failure Clinic. He is followed by Dr. Hernández from cardiology and was most recen tly seen by him on 07/03/2019 at which time his HF was stable. Today Darrell returns and reports that he continues to do we ll at home and verbalizes, feeling good. He tracks and monitors his daily weights and his home weights have remained stable and typically run be tween 168-171 lbs. His overall sx burden is minimal to none. He has had an on going but intermittent cough that has been addressed by his PCP for which he was started on a daily nasal spray. He denies chest pain, palpitations, fatigue, ed bird, abdominal edema, dyspnea, orthopnea, PND, syncope, dizziness or lighth eadedness. Energy and appetite reported as, good. Eats a diet that is low in sodium (does not add salt to food, eats very little can fabian or prepared foods) and he walking ~30 minutes daily. No acute concerns or complaints at this time. [place] his and his dog. Has 5 sons. Advanced direc tives have been completed and are scanned into [employer]. SOB: No Fatigue: No Orthopnea:No PND: No Edema:No Chest Pain:No (0/10) Palpitations:No Dizziness/Lightheadedness:No Syncope:No Appetite: good Diet:low salt (2000 mg) Fluid Restriction: No Regular Exercise: Yes: ~30 minutes/day while walking his dog PAST CARDIAC HISTORY: Heart failure: systolic Ischemic, coronary artery dise ase and s/p CABG x5 in 2005. His cardiac history is also significant for paroxysmal atr ial fibrillation, HTN, HLD,ischemic cardiomyopathy. Device: ICD. 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 PAST SURGICAL HISTORY Procedure Laterality Date - CABG, ARTERY-VEIN, FIVE 08/27/05 - COLONOSCOP W/ OR W/O [facility] SPEC 06-25-15 - COLONS W/REM POLYP HT BX 09/04/2016 - ICD (ICD) 03/19/06 and 04/03/09 - LAP COLECTOMY W COLOPROCTOST 07-17-15 - LAPAROSCOPIC CHOLEYCYSTECTOMY 08/12/2013 - PAST SURGICAL HISTORY OF 1993 and 1994 calcium deposits removed left ankle - REMOVAL MISSY VAD W PORT/PUMP Right 12/18/2016 Removal right IJ port - S P[facility] [place]ACO 30K [id number] Left - SKIN BX, 1 LESION 07/30/14 Punch bx left scalp - TOTAL HIP REPLACEMENT 10/23/11 Hip replacement, total left - TOTAL KNEE REPLACEMENT 2001 Knee replacement, total, right - TUNNEL VAD W SUB Q PORT >=5 Right 08-20-15 Social History Tobacco Use - Smoking status: Never Smoker - Smokeless tobacco: Never Used Substance Use Topics - Alcohol use: No - Drug use: No FAMILY HISTORY Problem Relation Age of Onset - None Mother age 84 - Coronary Artery Disease Father age 75 - Coronary Artery Disease Sister CABG age 77. age 79 of brain tumor. - None Sister - None Sister - None Brother ALLERGIES Allergen Reactions - Levaquin [Levofloxa* Swelling - Kaleigh Inhibitors Cough CURRENT MEDICATIONS: Current Outpatient Medications Medication Sig Dispense Refill - carvedilol (COREG) 25 mg tablet Take 1 tablet by mouth twi ce daily. 180 tablet 3 - losartan (COZAAR) 100 mg tablet Take 1 tablet by mouth once daily. 90 tablet 3 - digoxin (LANOXIN) 125 mcg (0.125 mg) tablet Take 1 tablet by mouth once daily. 90 tablet 3 - furosemide (LASIX) 40 mg tablet Take 1 tablet by mouth once daily. 90 tablet 3 - potassium chloride (KLOR-CON 10) 10 mEq tablet Take 1 tablet by mouth once daily. 90 tablet 3 - WARFARIN SODIUM (COUMADIN ORAL) Take 2.5 mg by mouth once daily. - clonazePAM (KLONOPIN) 0.5 mg tablet Take 0.5 m g by mouth three times daily. - ascorbic acid, vitamin C, (VITAMIN C) 500 mg tablet Take 500 mg by mouth once daily. - multivitamin tablet Take 1 tablet by mouth once daily. - aspirin 81 mg chewable tablet Take 81 mg by mouth once torin ly. No current facility-administered medications for this visit. REVIEW OF SYSTEMS: GENERAL: Negative for: Weigh t loss or gain, Fever or Chills, Weakness and Sleep difficulties. HEENT: Positive for:Glasses NECK: Negative for: Swelling, Pain, Stiffness RESPIRATORY: Positive for: Cough GASTROINTESTINAL: Negative for: Trouble swallowing, Heartburn, Change in bowel habits, Blood in stool, Dark black stools MUSCULOSKELETAL: Positive for: Chronic left sided weakness 2 /2 CVA NEUROLOGIC/PSYCHIATRIC: Positive for: Ch ronic left sided numbness and tingling 2/2 CVA SKIN: Negative for: Rash, Itching HEMATOLOGICAL/LYMPHATIC: Positive for: Easy bruising ENDOCRINE: Negative for: Heat or Cold Intolerance, Excessive Sweating, Frequent Urination, Frequent Thirst PHYSICAL EXAMINATION: 08/16/19 1117 BP: 125/64 Pulse: (!) 54 SpO2: 95% Weight: 76.8 kg (169 lb 6.4 oz) General: 79 year old, well-appearing man, accompanied by wilber hargrove, ambulates independently, no apparent distress Skin: No clubbing, no cyanosis. Eyes: Normal conjunctiva Neck: Neck veins are not distended, no carotid bruits Lungs: Chest clear to auscultation, respiratory effort bryant l on room air Heart: Rhythm: regular, Rate: bradycardia, no murmur Abdomen: Normal, Bowel Sounds: Present, Bruits: Absent Extremities: edema: Trace, pitting at RLE bay to ankle Peripheral Pulses: Normal, Capillary refill <2secs, st israel peripheral pulses ECHO: 07/30/2016: CONCLUSIONS: - Technically difficult exam due to body habitus. - Exam indication: Ischemic cardiomyopathy - The left ventricle is moderately dilated. Ther e is moderate concentric left ventricular hypertrophy. Left ventricular systolic function is moderately decreased. EF = 30 ? 5% (visual est.) Definity contras t used for endocardial border detection. Grade I left ventricular diastolic dysfunc tion. There is severe basilar septal prominence - The right ventricle is nor mal in size. Right ventricular systolic function is mildly decreased. - The left atrial cavity is mildly dilated. - Estimated right ventricula r systolic pressure is 37 mmHg consistent with mild pulmonary hypertension. Estimated right atrial pressure is 1 0 mmHg. - Mild to moderate 1-2+ MR. - Trivial TR and PI - Technically difficult subcostal view. - No definite LV apical thrombus ? - Exam was compared with the prior echocardiographic exam performed on 01/16/2016. There is a slight improvement in the LV function. Otherwise, no significant change. at 3 :44:18 PM CARDIOVASCULAR MEDICINE TESTING: No Cardiovascular testing perfomed today. There were no tests performed for review. Learning Needs NEW or CONSULT patient: YES Do you have any educ ational needs related to your visit today? YES Are there any limiting factors that affect learning (includi ng physical limitations): None What method of teaching do y ou learn best from: Written Instruction - Hand-outs IMPRESSION: NYHA Functional Class: II Stage: C heart failure Darrell Coronel is a 79 year old man with a history of co hallie cancer, paroxysmal atrial fibrillati on, HTN, HLD, CAD (s/p bypass grafting x5 in 2005), ischemic myopathy (ICD) and chronic systolic hea rt failure who presents today for an initial visit to the [facility] Failure [facility]. Overall, H F has remained stable and pt is euvolemic on exam. He is taking all of his medications appropriately as well as making the necessary li festyle modifications to help ensure that he remains stable. PLAN AND RECOMMENDATIONS: 1. Provided pt with HF pt education binder and r hangwed this in detail today. Specifically reviewed the HF zones and discussed triggers of when to call the office. 2. Discussed, at length, the importance of limit ing dietary sodium intake and the relationship between excessive dietary sodium and fluid retention in the setting of HF. Discussed and reviewed the proper way to read a food label and the importance of tracking the mg of sodium per service. I nstructed that pt should limit dietary sodium consumption to <2000 mg/day. 3. Discussed in great detail the importa nce of continuing to track and monitor daily weights and how this can be the earliest indicator o f decompensation. Instructed to continuing tracking these weights and to bring log with him to all subsequent cardiology visits. Instru cted to contact office with any weight gain of 3-4 lbs over a 1-4 day period. 4. Continue all current medications as instructed. 5. Activity as tolerated with rest breaks as warranted. 6. Advance Care Planning: Pt has advance directive and panda ing will, both of which are scanned into [employer].. 7. Provided pt with all contact information for HF clinic and reviewed s/sx's of when to call along with s /sx's of cardiac and respiratory emergency at which time he should seek emergency medical care via the ED or 911 . 8. RTC prn or with any change/increase in sx's. Instructed t o call with questions or concerns. 9. Pt and are agreeable to plan and verbalize understan ding. Followup appointment with Dr. Hernández on 01/02/2020. COUNSELING: We discussed the following non-pharmacological measures dania kulkarni this visit: ? Smoking and alcohol abstinence/cessation, if applicable ? Dietary and medication compliance ? Monitoring daily weights and blood pressures ? Exercise regimen ? When to call our office Heart Failure Education Booklet: information provided and re viewed today Medications reconciled at end of visit: yes I spent 35 minutes in this visit, with more than 50% of e time devoted to patient counseling. SIGNATURE: Rachelle Aguilar APRN.CNP PATIENT NAME: Darrell Coronel DATE: August 16, 2019 TIME: 12:46 PM Rachelle Aguilar APRN.SKIP 08/16/2019 11:25 AM Signed 1. Continue current medications as prescribed. 2. Weigh yourself daily. Call me if your weight increa ses by 3-4 pounds in a 1-4 day period of time. 3. Continue low salt (2000 mg per day) diet. 4. Be as active as you are able. If you get tired, just st op and rest for a while. 5. Come back and see me as needed or with any ch rainer or increase in symptoms. If you have any question or concern, you can call me at [phone]. Referring Provider: SPRING HERNÁNDEZ [[id number]] Allergies As of Date: 08/16/2019 Noted Allergy Reaction LEVAQUIN (LEVOFLOXACIN) 08/14/2005 7 - Swelling KALEIGH INHIBITORS 09/03/2010 3 - Cough Date Reviewed: 08/16/2019 Reviewed by: Rachelle (Skip) Zenobia - Fully Assessed Reason for Visit: New Patient [172] Establish Care [42] Primary Visit Diagnosis:Chronic systolic heart failure (HCC) [I50.22] Other Visit Diagnoses:Coronary artery disease involving carmelo ve coronary artery of [place] heart without angina pectoris [I25.10] Essential hypertension, benign [I10] Hyperlipidemia, unspecified hyperlipidemia type [E78.5] PAF (paroxysmal atrial fibrillation) ([facility]) [I48.0] ICD (implantable cardioverter-defibrillator) in place [Z95.810] Order(s):Ipratropium [place] (ATROVENT) 0.03 % n jasvir sprayUse 2 Sprays in the nose once daily.Disp: Rfl: Prescriptions as of 08/16/2019 Sig: IPRATROPIUM BROMIDE 0.03 % NA* Use 2 Sprays in the nose once * CARVEDILOL 25 MG TABLET Take 1 tablet by mouth twice * LOSARTAN 100 MG TABLET Take 1 tablet by mouth once d* DIGOXIN 125 MCG (0.125 MG) TA* Take 1 tablet by mouth once d * FUROSEMIDE 40 MG TABLET Take 1 tablet by mouth once d* POTASSIUM CHLORIDE ER 10 MEQ * Take 1 tablet by mouth once d * COUMADIN ORAL Take 2.5 mg by mouth once torin* CLONAZEPAM 0.5 MG TABLET Take 0.5 mg by mouth three ti* ASCORBIC ACID (VITAMIN C) 500* Take 500 mg by mouth once torin * MULTIVITAMIN TABLET Take 1 tablet by mouth once d* ASPIRIN 81 MG CHEWABLE TABLET Take 81 mg by mouth once trixie* Problem List As Of Date 08/16/2019 Noted Resolved Coronary atherosclerosis of unspecified type of*07/01/2005 0 12/23/2018 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 Dyslipidemia [E78.5] More... Hypertension [I10] More... Atrial fibrillation [I48.20] 01/16/2016 01/17/2016 More... CAP (community acquired pneumonia) [J18.9] 01/17/2016 More... Colon cancer (HCC) [C18.9] 01/17/2016 More... SUMMARY 01/17/2016 More... 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 Continue current medications as prescribed. 2. Weigh yourself daily. Call me if your weight increases by 3-4 pounds in a 1-4 day period of time. 3. Continue low salt (2000 mg per day) diet. 4. Be as active as you are able. If you get tired, just stop and rest for a while. 5. Come back and see me as needed or with any change or incr ease in symptoms. If you have any question or concern, you can call me at [phone]. Prescriptions ordered this encounter Disp Refills Start End IPRATROPIUM BROMIDE 0.03 % NASAL SPR* 08/16/2019 Class: Med Update Route: NASAL Sig: Use 2 Sprays in the nose once daily. Level of Service: NEW PATIENT VISIT LEVEL 3 [[id number]] Encounter Status:Closed by RACHELLE AGUILAR CNP on 08/16/19 progress on 2019-07 PROGRESS HNO ID: [id number] Normal 07-27-2019 [facility] Author: Kristie Guerin ([id number]) Service: ? Author Type: Nurse Practitioner Type: Progress Notes Filed: 07/27/2019 10:07 AM Note Text: Chief Complaint Patient presents with: Established Patient HPI: Darrell Coronel is a 79 year old male who presents here t eli for follow up colon cancer. Per Dr. Bradley's previous note: H/o?CAD?(CABG x5 vessels 2005), atrial fibrillation, LV thro mbus, ASHD?(CABG x5 2005), hyperlipidemia, HTN, ischemic cardiomyo rolo?(ICD) and CHF. ?? He was seen by Dr. Mayorga for a scalp lesion and mentioned th at he was having rectal bleeding. He was scheduled for and underwent a colonoscopy (had not previously had one) on 06/25/2015. The patient was found to have diverticulosis of the sigmoid colon and descending colon. Tw o sessile polyps measuring 5 and 6 mm were observed at the hepatic fle xure. They were resected and retrieved. One 8 mm polyp was observed at the splenic flexure it was biopsied and a clip was placed. This polyp wa s pedunculated and was unable to be cauterized due to the ICD. There was a malignant-appearing mass in the distal sigmoid colon. It was injected at the distal margin. ?? CT scan done on 06/28/2015: Apple core type lesion seen within the sigmoid colon, with a ssociate irregularity. This lesion measures approximately 4-5 cm in l ength. Findings are concerning for colon carcinoma. No evidence for bowel obstruction. Prominence of the seminal vesicles as well as heterogeneity of the prostate gland. Consider correlation with PSA levels, at cli nical discretion. Sequela of remote granulomas disease, as above. Indeterminate 1.8 cm left adrenal nodule. Indeterminate pulmonary nodules seen within the left lower l obe, measuring up to 5 mm. ?? Patient underwent a laparoscopic sigmoid segmental colectomy on 07/17/2015. ?? Final pathology was significant for a 5 cm use in this adeno carcinoma of low grade. The tumor was noted to extend through the muscula ris propria into the subserosal adipose tissue. It was located 3 cm from the stapled resection margin. Perforation was not identified. Lymphovasc ular invasion was not identified. Tumor deposits were not identified. 17 l ymph nodes were removed. All 17 contained metastatic disease.?Immunohis tochemistry staining for MSI was negative. ?? Patient recovered well. ?? Previous therapy: 1) Adjuvant FOLFOX x9 cycles completed 01/08/2016. Patient pr esented to [facility] on 01/15/2016 with complaints of co ugh, increasing shortness of breath and wheezing. Found to have a n elevation of troponin and was admitted and started on Lasix. He was then transferred to the main [facility]. He underwent a left heart catheterization which showed a patent ARIZMENDI-LAD as well as a patent SVG-RCA with left to right collaterals. Medical management was recom mended. He underwent a repeat echocardiogram which unfortunately showed a decline in EF from about 45% to about 20%. Therapy stopped following th at. ? Appetite:good Energy level:I've been tired since this. Denies fevers. Resp:denies cough or sob at rest, occ. cuellar Cardiac:denies chest pain/palpitations-followed by cardiolog y-had appt. recently with ICD check. GI:denies abd pain, n/v, moving bowels regularly :denies dysuria/hematuria Extrem:denies pain currently,?chronic?L LE pain,?R knee/hip? pain-h/o R total knee just my old age aches and pains. 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 Past medical history, appointments, medications, allergies r eviewed. No changes. EXAM: BP 110/57 Pulse (!) 55 Temp 36.8 ?C (98.3 ?F) (Oral) W t 77.1 kg (170 lb) BMI 30.60 kg/m? APPEARANCE?Well appearing, alert, in no acute distress, well -hydrated, well nourished. HEART?RRR with normal S1 and S2, no murmurs LUNG?clear to auscultation LYMPH NODES?No cervical lymphadenopathy, No supraclavicular lymphadenopathy and No axillary lymphadenopathy. ABDOMEN?bowel sounds normoactive,?soft, non-tender, non-dist ended, without organomegaly or palpable masses EXTREMITIES?trace?edema to RLE NEURO?Awake, alert and oriented x 3, Normal gait and No invo luntary motions. SKIN?Skin color, texture, turgor normal, no suspicious rashe s or lesions ? LABS: CEA: Pending RADIOLOGY: CT chest 07/18/18: IMPRESSION: No interval change. ?Stable small lung nodules. Stable borderline RIGHT hilar adenopathy. CT abd/pelvis 07/18/18: IMPRESSION: No findings suggestive of metastatic disease in the abdomen or pelvis. Stable LEFT adrenal nodule likely adenoma. ASSESSMENT/PLAN: 1. Malignant neoplasm of sigmoid colon (HCC) - ICD9: 153.3, ICD10: C18.7 Stage IIIC colon cancer. - ?No concerning findings on exam. - CEA pending. - Reviewed CT's with pt. -??Colonoscopy?done 2018-Dr. Mayorga. Will have report sc anned into [facility]. - ?CT chest/abd/pelvis due in one year. - ?Follow up in 6?months with CEA-pending today's CEA. - ?Pt. aware to call office with any questions/concerns. ? ? The patient indicates understanding of these issues and agre es with the plan. ? ? ? CLIF Acuna on 2019-07-12 6 GÓMEZOVS Visit (SP) Office (NASEEM) [facility] TONEYDARRELL HERNANDEZ Sascha ([id number]) 1940 M [place] Date Time Provider Department ([id number]) 07/27/19 9:30 AM KRISTIE HITCHCOCK During your visit today, we recorded the following informati on about you: Temperature Pulse Blood pressure Weight 98.3 degrees 55/minute 110/57 77.1 kg Kristie Hitchcock APRN.CNP 07/27/2019 10:07 AM Signed Chief Complaint Patient presents with: Established Patient HPI: Darrell Coronel is a 79 year old male who presents here today for follow up colon cancer. Per Dr. Bradley's previous note: H/o?CAD?(CABG x5 vessels 200 6), atrial fibrillation, LV thrombus, ASHD?(CABG x5 2005), hyperlipidemia, HTN, ischemic cardiomyopathy?(ICD) an d CHF. ?? He was seen by Dr. Mayorga for a scalp lesion and mei peralta that he was having rectal bleeding. He was scheduled for and underwent a colono scopy (had not previously had one) on 06/25. The patient was found to have diverticulosis of the sigmoid colon and thalia cending colon. Two sessile polyps measuring 5 and 6 mm were observed at the hepatic flexure. They were resected and retrieved. One 8 mm polyp was observed at the splenic flexure i t was biopsied and a clip was placed. This polyp was pedunculated and was unable to be cauterized due to the ICD. There was a malignant-appearing mass in the distal sigmoid colon. It was injected at the distal margin. ?? CT scan done on 06/28/2015: Apple core type lesion seen within the sigmoid colon, with a ssociate irregularity. This lesion measures approximately 4-5 cm in l ength. Findings are concerning for colon carcinoma. No evidence for bowel obstruction. Prominence of the seminal vesicles as well as heterogeneity of the prostate gland. Consider correlation with PSA levels, at cli nical discretion. Sequela of remote granulomas disease, as above. Indeterminate 1.8 cm left adrenal nodule. Indeterminate pulmonary nodules seen within the left lower l obe, measuring up to 5 mm. ?? Patient underwent a laparoscopic sigmoid segmental colectomy on 07/17/2015. ?? Final pathology was significant for a 5 cm use in this adenocarcinoma of low grade. The tumor was noted to extend through the muscu connor propria into the subserosal adipose tissue. It was located 3 cm from the stap led resection margin. Perforation was not identified. Lymphovascular invas ion was not identified. Tumor deposits were not identified. 17 lym ph nodes were removed. All 17 contained metastatic disease.?Imm unohistochemistry staining for MSI was negative. ?? Patient recovered well. ?? Previous therapy: 1) Adjuvant FOLFOX x9 cycles completed . Patient presented to [facility] on 01/15/2016 with complaints o f cough, increasing shortness of breath and wheezing. Foun d to have an elevation of troponin and was admitted and started on Lasix. He was then transferred to the [facility]. He underwent a left heart catheterization which show ed a patent ARIZMENDI-LAD as well as a patent SVG-RCA with left to righ t collaterals. Medical management was recommended. He underwent a repeat echocardio gram which unfortunately showed a decline in EF from about 45% to about 20%. Therapy stopped following that. ? Appetite:good Energy level:I've been tired since this. Denies fevers. Resp:denies cough or sob at rest, occ. cuellar Cardiac:denies chest pain/palpitations-followed by cardiolog y-had appt. recently with ICD check. GI:denies abd pain, n/v, moving bowels regularly :denies dysuria/hematuria Extrem:denies pain currently,?chronic?L LE pain,?R kne e/hip?pain-h/o R total knee just my old age aches and pains. 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 Past medical history, appoin tments, medications, allergies reviewed. No changes. EXAM: BP 110/57 Pulse (!) 55 Temp 36.8 ?C (98.3 ?F) (Oral) W t 77.1 kg (170 lb) BMI 30.60 kg/m? APPEARANCE?Well appearing, alert, in no acute distress, we ll-hydrated, well nourished. HEART?RRR with normal S1 and S2, no murmurs LUNG?clear to auscultation LYMPH NODES?No cervical lymp hadenopathy, No supraclavicular lymphadenopathy and No axillary lymphadenopathy. ABDOMEN?bowel sounds normoactive,?soft, non-tender, non-dist ended, without organomegaly or palpable masses EXTREMITIES?trace?edema to RLE NEURO?Awake, alert and oriented x 3, Normal gait and N o involuntary motions. SKIN?Skin color, texture, turgor normal, no suspicious rashe s or lesions ? LABS: CEA: Pending RADIOLOGY: CT chest 07/18/18: IMPRESSION: No interval change. ?Stable small lung nodules. Stable borderline RIGHT hilar adenopathy. CT abd/pelvis 07/18/18: IMPRESSION: No findings suggestive of metastatic disease in the abdomen or pelvis. Stable LEFT adrenal nodule likely adenoma. ASSESSMENT/PLAN: 1. Malignant neoplasm of sigmoid colon (HCC) - ICD9: 153.3, ICD10: C18.7 Stage IIIC colon cancer. - ?No concerning findings on exam. - CEA pending. - Reviewed CT's with pt. -??Colonoscopy?done 2018-Dr. Mayorga. Will have rep ort scanned into [facility]. - ?CT chest/abd/pelvis due in one year. - ?Follow up in 6?months with CEA-pending today's CEA. - ?Pt. aware to call office with any questions/concerns. ? ? The patient indicates understanding of these iss ues and agrees with the plan. ? ? ? Kristie Hitchcock, PERINATAL INSTRUCTOR.POCKET ASSEMBLER Referring Provider: KRISTIE HITCHCOCK [[id number]] Allergies As of Date: 07/27/2019 Noted Allergy Reaction LEVAQUIN (LEVOFLOXACIN) 08/14/2005 7 - Swelling KALEIGH INHIBITORS 09/03/2010 3 - Cough Date Reviewed: 07/27/2019 Reviewed by: Kristie Hitchcock - Fully Assessed Reason for Visit: Established Patient [175] Primary Visit Diagnosis:Malignant neoplasm of sigmoid colon (HCC) [C18.7] Follow-up and Disposition History Recorded Prescriptions as of 07/27/2019 Sig: CARVEDILOL 25 MG TABLET Take 1 tablet by mouth twice * LOSARTAN 100 MG TABLET Take 1 tablet by mouth once d* DIGOXIN 125 MCG (0.125 MG) TA* Take 1 tablet by mouth once d * FUROSEMIDE 40 MG TABLET Take 1 tablet by mouth once d* POTASSIUM CHLORIDE ER 10 MEQ * Take 1 tablet by mouth once d * COUMADIN ORAL Take 2.5 mg by mouth once torin* CLONAZEPAM 0.5 MG TABLET Take 0.5 mg by mouth three ti* ASCORBIC ACID (VITAMIN C) 500* Take 500 mg by mouth once torin * MULTIVITAMIN TABLET Take 1 tablet by mouth once d* ASPIRIN 81 MG CHEWABLE TABLET Take 81 mg by mouth once trixie* Medication notes this encounter COUMADIN ORAL >> Ciara Gomes MA 07/27/2019 9:46 AM >> CIARA GOMES MA Sarah Jul 27, 2019 9:46 AM Taking 3mg once daily. PRAVASTATIN 10 MG TABLET >> Ciara Gomes MA 07/27/2019 9:45 AM >> CIARA GOMES MA Sarah Jul 27, 2019 9:45 AM Not taking. CETIRIZINE 10 MG TABLET >> Ciara Gomes MA 07/27/2019 9:45 AM >> EROS CIARA PLUMMER Jul 27, 2019 9:45 AM Not taking. GUAIFENESIN ER 600 MG TABLET, EXTENDED RELEASE 12 HR >> Ciara Gomes MA 07/27/2019 9:46 AM >> MIGUEL ANGELCIARA TORRES MA Jul 27, 2019 9:46 AM Not taking. Problem List As Of Date 07/27/2019 Noted Resolved Coronary atherosclerosis of unspecified type of*07/01/2005 0 12/23/2018 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 Dyslipidemia [E78.5] More... Hypertension [I10] More... Atrial fibrillation [I48.20] 01/16/2016 01/17/2016 More... CAP (community acquired pneumonia) [J18.9] 01/17/2016 More... Colon cancer (HCC) [C18.9] 01/17/2016 More... SUMMARY 01/17/2016 More... 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 Performed By: #### CEA #### [facility] [address] [id number] progress on 2019-07 PROGRESS HNO ID: [id number] Normal 07-18-2019 [facility] Author: Juana ([facility]) Ed Ferrara [facility] ([id number]) Service: ? Author Type: Biological Plant Operator Type: Progress Notes Filed: 07/18/2019 12:17 PM Note Text: Radiology Service Progress Note DATE OF SERVICE: July 18, 2019 TIME: 12:17 PM PATIENT IDENTITY VERIFICATION COMPLETED USING TWO (2) ST[address] RD IDENTIFIERS: Name and Date of confirmed by patient shawn sifuentes. PATIENT GENDER DATA: Male PATIENT RELEVANT IMPLANT DATA REVIEWED: Yes ALLERGIES: Reviewed and unchanged CONTRAST ALLERGY: NO. EXAM: CT -CONTRAST INDUCED NEPHROPATHY RISK FACTORS: Patient age > 60 years CREATININE: Creatinine Date Value Ref Range Status 07/18/2019 0.85 0.73 - 1.22 mg/dL Final 06/29/2018 0.92 0.73 - 1.22 mg/dL Final 12/23/2017 0.96 0.73 - 1.22 mg/dL Final eGFR-All Other Races Date Value Ref Range Status 07/18/2019 >60 . Final Comment: eGFR (Estimated GFR) Units of measure: mL/min/1.73 meters sq uared eGFR is derived from the reexpressed MDRD Study equation usi ng the following parameters: serum creatinine, age, gender and race. The crea tinine assay has been calibrated to be traceable to IDMS. An eGFR <60 mL/min/1.73m2 for >3 months is consistent with c hronic kidney disease. Refer to KDOQI guidelines for clinical interpretati on. In patients with unstable renal function, e.g. those with ac celestino kidney injury, the eGFR may not accurately reflect actual GFR. eGFR- Date Value Ref Range Status 07/18/2019 >60 Final P.O.C.T. RESULTS: POC done: Yes, See Lab Tab July 18, 2019 TREATMENT: N/A PERIPHERAL IV DATA: Ambulatory: A peripheral IV was started in the Left antecubital site with a Angio cath: 22 gauge. 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 MQ: CTCWR_5 Contrast: 150 mL Omnipaque [address] Dose-Length Product: 834 mGy*cm CT Dose Reduction Employed: Automated exposure control(AEC) and iterative recon Comparison: 06/29/2018 CT RESULT: Limitations: None. Lines, tubes, and devices: None. Lung parenchyma and pleura: The previous described small jared g nodules are stable. Largest is 5 mm in diameter (19:60). There are a few linear densities in the RIGHT lung. No pleural effusion. Central ai rways are patent. Thoracic inlet, heart, and mediastinum: Stable borderline en larged RIGHT hilar lymph node 1-1.1 cm in diameter. No mediastinal adenop athy. No axillary adenopathy. The thoracic aorta and main pulmonary a rtery are normal in caliber. The cardiac chambers are normal in size. No coronary artery atherosclerotic calcifications are noted, although th e study is not optimized for coronary assessment. No pericardial effusi on or thickening. Bones and soft tissues: Status post median sternotomy. Stabl e mild wedge compression deformity mid thoracic vertebral body with associated mild kyphosis. There is limited secondary to Luschka Upper abdomen: CT abdomen pelvis dictated separately. IMPRESSION: No interval change. Stable small lung nodules. Stable borderline RIGHT hilar adenopathy. Microbiology Lab Analyst: PSCB Transcribe Date/Time: Jul 18 2019 1:49P Dictated by : JORDAN MCKEON MD This examination was interpreted and the report reviewed and electronically signed by: JORDAN MCKEON MD on Jul 18 2019 1:58PM EST [id number] ct abd/pel w ivcon on 2019-07-18 CT ABD/PEL W * * *Final Report* * * Normal [facility] IVCON DATE OF EXAM: Jul 18 2019 11:56AM [place] ([id number]) [facility] 0530 - CT ABD/PEL W IVCON / PROCEDURE REASON: multiple diagnoses * * * * Physician Interpretation * * * * EXAMINATION: CT ABDOMEN AND PELVIS WITH IV CONTRAST CLINICAL HISTORY: Malignant neoplasm of sigmoid colon (HCC) 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 MQ: CTAP_3 Contrast: IV: 150 ml of Omnipaque 300 Oral: 50 ml of 50ML Omnipaque [address] Radiation dose: Integrated Dose-length product (DLP) for this visit = 834 mGy*cm. CT Dose Reduction Employed: Automated exposure control(AEC) and iterative recon COMPARISON: 06/29/2018 CT. RESULT: Liver: No mass. Biliary: No bile duct dilation. Gallbladder is absent. Spleen: No mass. No splenomegaly. Pancreas: No mass or duct dilation. Adrenals: Stable LEFT adrenal nodule, measuring about 1.7 x 2.4 cm. Right adrenal gland is unremarkable. Kidneys: 1.2 cm low-attenuation RIGHT renal density consiste nt with a cyst. GI tract: Periampullary duodenal diverticulum about 2-2.5 cm . No dilated small bowel. Distal colonic diverticulosis. Bowel torres tures at the distal sigmoid colon. Lymph nodes: No abdominal or pelvic lymphadenopathy. Mesentery/Peritoneum: No ascites or mass. Retroperitoneum: No mass. Vasculature: The celiac axis and SMA are patent. The portal vein and branches, splenic vein, SMV, and hepatic veins are patent. A rterial atherosclerotic disease without aneurysm. Pelvis: No mass, ascites or fluid collection. Evaluation lopez ited by artifact from LEFT hip prosthesis. Bones/Soft Tissues: Status post LEFT hip joint replacement. There are degenerative changes to the lumbar spine. Lower thorax: A chest CT performed will be reported separate ly. IMPRESSION: No findings suggestive of metastatic disease in the abdomen or pelvis. Stable LEFT adrenal nodule likely adenoma. Microbiology Lab Analyst: KRISTEN Transcribe Date/Time: Jul 18 2019 1:39P Dictated by : JORDAN MCKEON MD This examination was interpreted and the report reviewed and electronically signed by: JORDAN MCKEON MD on Jul 18 2019 1:46PM EST [id number] creatinine on 07-18 Creatinine [Mass/Vol] 0.85 0.73-1.22 mg/dL Normal 07-18-19 [facility] ([id number]) Creatinine [Mass/Vol] >60 Normal 07-18-19 [facility] ([id number]) Comment: Result Comment: eGFR (Estima obed GFR) Units of measure: mL/min/1.73 meters squared eGFR is derived from the ree xpressed MDRD Study equation using the following parameters: serum creatinine, age, gender and race. The creatinine assay has been calibrated to be traceable to IDMS. An eGFR <60 mL/min/1.73m2 fo r >3 months is consistent with chronic kidney disease. Refer to KDOQI guidelines for clinical interpretation. In patients with unstable re nal function, e.g. those with acute kidney injury, the eGFR may not accurately reflect actual GFR. progress on 2019-06 PROGRESS HNO ID: [id number] Normal 07-03-2019 [facility] Author: Spring Hernández, [place] ([id number]) Service: ? Author Type: Physician Type: Progress Notes Filed: 07/03/2019 12:47 PM Note Text: [facility] CARDIOLOG[facility] OUTPATIENT VISIT DATE July 03, 2019 PRIMARY CARE PHYSICIAN: Van Barfield MD ([facility]) [address] [place] [address] HISTORY OF PRESENT ILLNESS: Mr. Coronel is a 79 year old male. The patient returns for follow up secondary history of coronary disease status post coronary b ypass grafting with an ischemic myopathy with the latest ejection fraction 27% status post defibrillator. Additional history includes paroxysmal a trial fibrillation previous LV apical thrombus, hypertension and h yperlipidemia. The patient denies chest discomfort, dyspnea, orthopnea, par oxysmal nocturnal dyspnea, palpations, near-syncope or syncope. PLAN AND RECOMMENDATIONS: The patient remained stable without symptoms of angina or ca rdiac decompensation. Heart rate and blood pressure appear well co ntrolled. Most recent cholesterol profile was at goal with the excepti on of his triglycerides and HDL. We discussed dietary and lifestyle mo dification to facilitate risk factor reduction help improve the patient's cholesterol profile. We additionally discussed CHF prevention strategies in regards to fluid and sodium restriction as well as daily weights. We will send him for CHF education through the CHF clinic for further edu cation to help prevent against such. He'll continue to follow through the [facility] for his defibrillator. Recent evaluation demonstrates normal functioning. We will look forward to reevaluating him in 6 months time re gardless. Vitals: BP 112/56 Pulse (!) 57 Ht 158.8 cm (5' 2.5) W t 77.1 kg (170 lb) SpO2 96% BMI 30.60 kg/m? Physical Exam Vitals signs and nursing note reviewed. Constitutional: General: He is not in acute distress. Appearance: He is well-developed. He is not diaphoretic. HENT: Head: Normocephalic and atraumatic. Right Ear: External ear normal. Left Ear: External ear normal. Nose: Nose normal. Eyes: General: No scleral icterus. Right eye: No discharge. Left eye: No discharge. Pupils: Pupils are equal, round, and reactive to light. Neck: Musculoskeletal: Neck supple. Thyroid: No thyromegaly. Vascular: No JVD. Cardiovascular: Rate and Rhythm: Normal rate and regular rhythm. Heart sounds: No murmur. No friction rub. No gallop. Pulmonary: Effort: Pulmonary effort is normal. No respiratory distress. Breath sounds: Normal breath sounds. No wheezing or rales. Abdominal: General: Bowel sounds are normal. Palpations: Abdomen is soft. Musculoskeletal: Normal range of motion. Skin: General: Skin is warm and dry. Coloration: Skin is not pale. Neurological: Mental Status: He is alert and oriented to person, place, an d time. Cranial Nerves: No cranial nerve deficit. Psychiatric: Mood and Affect: Mood is not anxious or depressed. Behavior: Behavior normal. Thought Content: Thought content normal. Judgment: Judgment normal. Review of Systems Constitutional: Negative for activity change, appetite fernandez e, fatigue and unexpected weight change. HENT: Negative for ear pain and trouble swallowing. Eyes: Negative for pain and visual disturbance. Respiratory: Negative for chest tightness and shortness of b reath. Cardiovascular: Negative for chest pain, palpitations and le g swelling. Gastrointestinal: Negative for abdominal pain and blood in s tool. Endocrine: Negative for cold intolerance and heat intoleranc e. Genitourinary: Negative for dysuria, hematuria and scrotal s welling. Musculoskeletal: Negative for arthralgias and myalgias. Skin: Negative for pallor and rash. Allergic/Immunologic: Negative for immunocompromised state. Neurological: Negative for dizziness, syncope and light-head edness. Hematological: Negative for adenopathy. Does not bruise/blee d easily. Psychiatric/Behavioral: Negative for sleep disturbance. The patient is not nervous/anxious. 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 PAST SURGICAL HISTORY Procedure Laterality Date - CABG, ARTERY-VEIN, FIVE 08/27/05 - COLONOSCOP W/ OR W/O [facility] SPEC 06-25-15 - COLONS W/REM POLYP HT BX 09/04/2016 - ICD (ICD) 03/19/06 and 04/03/09 - LAP COLECTOMY W COLOPROCTOST 07-17-15 - LAPAROSCOPIC CHOLEYCYSTECTOMY 08/12/2013 - PAST SURGICAL HISTORY OF 1993 and 1994 calcium deposits removed left ankle - REMOVAL MISSY VAD W PORT/PUMP Right 12/18/2016 Removal right IJ port - S PACK PHACO 30K 5702-6451-73 Left - SKIN BX, 1 LESION 07/30/14 Punch bx left scalp - TOTAL HIP REPLACEMENT 10/23/11 Hip replacement, total left - TOTAL KNEE REPLACEMENT 2001 Knee replacement, total, right - TUNNEL VAD W SUB Q PORT >=5 Right 08-20-15 Social History Tobacco Use - Smoking status: Never Smoker - Smokeless tobacco: Never Used Substance Use Topics - Alcohol use: No - Drug use: No FAMILY HISTORY Problem Relation Age of Onset - None Mother age 84 - Coronary Artery Disease Father age 75 - Coronary Artery Disease Sister CABG age 77. age 79 of brain tumor. - None Sister - None Sister - None Brother ALLERGIES Allergen Reactions - Levaquin [Levofloxa* Swelling - Kaleigh Inhibitors Cough CURRENT MEDICATIONS: pravastatin (PRAVACHOL) 10 mg tablet Take 1 tablet by mouth daily at bedtime. carvedilol (COREG) 25 mg tablet Take 1 tablet by mouth twice daily. losartan (COZAAR) 100 mg tablet Take 1 tablet by mouth once daily. digoxin (LANOXIN) 125 mcg (0.125 mg) tablet Take 1 tablet by mouth once daily. furosemide (LASIX) 40 mg tablet Take 1 tablet by mouth once daily. potassium chloride (KLOR-CON 10) 10 mEq tablet Take 1 tablet by mouth once daily. enteric contrast (will be provided with radiology test) For CT CHESTABD/PEL W IVCON Routine order Administer, As Directed O ne Time Only, via Oral, Rectal, both Oral and Rectal, Enteric Tube, Stoma or Indwelling Catheter, Enteric Contrast as designated per enteric contras t guidelines WARFARIN SODIUM (COUMADIN ORAL) Take 2.5 mg by mouth once da kristofer. clonazePAM (KLONOPIN) 0.5 mg tablet Take 0.5 mg by mouth thr ee times daily. ascorbic acid, vitamin C, (VITAMIN C) 500 mg tablet Take 500 mg by mouth once daily. multivitamin tablet Take 1 tablet by mouth once daily. aspirin 81 mg chewable tablet Take 81 mg by mouth once daily . cetirizine (ZYRTEC) 10 mg tablet Take 10 mg by mouth once da kristofer. guaiFENesin (MUCINEX) 600 mg 12 hr tablet Take 1,200 mg by m outh twice daily. Spring Hernández DO, FACC, FAC Clinical and Preventive Cardiology [facility] cnov on 2019-07-03 CNOV Office Visit ([place]) Normal 07-03-20 [place] Jessica DARRELL CORONEL Sascha ([id number]) 1940 M [place] Date Time Provider Department ([id number]) 07/03/19 11:40 AM SPRING HERNÁNDEZ During your visit today, we recorded the following informati on about you: Pulse Blood pressure Weight Height 57/minute 112/56 77.1 kg 1.588 m Spring Hernández DO, DO 07/03/2019 12:47 PM Signed [facility] OUTPATIENT VISIT DATE July 03, 2019 PRIMARY CARE PHYSICIAN: Van Barfield MD ([facility]) [address] [place] [address] HISTORY OF PRESENT ILLNESS: Mr. Coronel is a 79 year old male. The patient returns for follow up secondary history of coronar y disease status post coronary bypass grafting with an ischemic myopathy with the latest ejection fraction 27% s tatus post defibrillator. Additional history includes paroxysmal atrial fibrillation previous LV apical thrombus, hypertension and hyperlipidemia . The patient denies chest discomfort, dyspnea, orthopnea, paroxysmal noct urnal dyspnea, palpations, near-syncope or syncope. PLAN AND RECOMMENDATIONS: The patient remained stable without symptoms of angina or ca rdiac decompensation. Heart rate and blood pressure appear well co ntrolled. Most recent cholesterol profile was at goal w ith the exception of his triglycerides and HDL. We discussed dietary and lifestyle modification t o facilitate risk factor reduction help improve the patient's cholesterol prof ile. We additionally discussed CHF p revention strategies in regards to fluid and sodium restriction as well as daily weights. We will send him for C HF education through the CHF clinic for further education to help prevent against such. He'll continue to follow through the device clinic for his d efibrillator. Recent evaluation demonstrates normal functioning. We will l taiwo forward to reevaluating him in 6 months time regardless. Vitals: BP 112/56 Pulse (!) 57 Ht 158.8 cm (5' 2.5) W t 77.1 kg (170 lb) SpO2 96% BMI 30.60 kg/m? Physical Exam Vitals signs and nursing note reviewed. Constitutional: General: He is not in acute distress. Appearance: He is well-developed. He is not diaphoretic. HENT: Head: Normocephalic and atraumatic. Right Ear: External ear normal. Left Ear: External ear normal. Nose: Nose normal. Eyes: General: No scleral icterus. Right eye: No discharge. Left eye: No discharge. Pupils: Pupils are equal, round, and reactive to light. Neck: Musculoskeletal: Neck supple. Thyroid: No thyromegaly. Vascular: No JVD. Cardiovascular: Rate and Rhythm: Normal rate and regular rhythm. Heart sounds: No murmur. No friction rub. No gallop. Pulmonary: Effort: Pulmonary effort is normal. No respiratory distress. Breath sounds: Normal breath sounds. No wheezing or rales. Abdominal: General: Bowel sounds are normal. Palpations: Abdomen is soft. Musculoskeletal: Normal range of motion. Skin: General: Skin is warm and dry. Coloration: Skin is not pale. Neurological: Mental Status: He is alert and oriented to person, place, an d time. Cranial Nerves: No cranial nerve deficit. Psychiatric: Mood and Affect: Mood is not anxious or depressed. Behavior: Behavior normal. Thought Content: Thought content normal. Judgment: Judgment normal. Review of Systems Constitutional: Negative for activity change, appetite fernandez e, fatigue and unexpected weight change. HENT: Negative for ear pain and trouble swallowing. Eyes: Negative for pain and visual disturbance. Respiratory: Negative for chest tightness and shortness of b reath. Cardiovascular: Negative for chest pain, palpitations and le g swelling. Gastrointestinal: Negative for abdominal pain and blood in s tool. Endocrine: Negative for cold intolerance and heat intoleranc e. Genitourinary: Negative for dysuria, hematuria and scrotal s welling. Musculoskeletal: Negative for arthralgias and myalgias. Skin: Negative for pallor and rash. Allergic/Immunologic: Negative for immunocompromised state. Neurological: Negative for dizziness, syncope and light-head edness. Hematological: Negative for adenopathy. Does not bruise/blee d easily. Psychiatric/Behavioral: Negative for sleep disturbance. The patient is not nervous/anxious. 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 PAST SURGICAL HISTORY Procedure Laterality Date - CABG, ARTERY-VEIN, FIVE 08/27/05 - COLONOSCOP W/ OR W/O [facility] SPEC 06-25-15 - COLONS W/REM POLYP HT BX 09/04/2016 - ICD (ICD) 03/19/06 and 04/03/09 - LAP COLECTOMY W COLOPROCTOST 07-17-15 - LAPAROSCOPIC CHOLEYCYSTECTOMY 08/12/2013 - PAST SURGICAL HISTORY OF 1993 and 1994 calcium deposits removed left ankle - REMOVAL MISSY VAD W PORT/PUMP Right 12/18/2016 Removal right IJ port - S PACK PHACO 30K [id number] Left - SKIN BX, 1 LESION 07/30/14 Punch bx left scalp - TOTAL HIP REPLACEMENT 10/23/11 Hip replacement, total left - TOTAL KNEE REPLACEMENT 2001 Knee replacement, total, right - TUNNEL VAD W SUB Q PORT >=5 Right 08-20-15 Social History Tobacco Use - Smoking status: Never Smoker - Smokeless tobacco: Never Used Substance Use Topics - Alcohol use: No - Drug use: No FAMILY HISTORY Problem Relation Age of Onset - None Mother age 84 - Coronary Artery Disease Father age 75 - Coronary Artery Disease Sister CABG age 77. age 79 of brain tumor. - None Sister - None Sister - None Brother ALLERGIES Allergen Reactions - Levaquin [Levofloxa* Swelling - Kaleigh Inhibitors Cough CURRENT MEDICATIONS: pravastatin (PRAVACHOL) 10 mg tablet Take 1 tabl et by mouth daily at bedtime. carvedilol (COREG) 25 mg tablet Take 1 tablet by mouth twice daily. losartan (COZAAR) 100 mg tablet Take 1 tablet by mouth once daily. digoxin (LANOXIN) 125 mcg (0.125 mg) tab let Take 1 tablet by mouth once daily. furosemide (LASIX) 40 mg tablet Take 1 tablet by mouth once daily. potassium chloride (KLOR-CON 10) 10 mEq tablet Take 1 tablet by mouth once daily. enteric contrast (will be provided with radiolog y test) For CT CHESTABD/PEL W IVCON Routine order Administer, As Directed One Time O nly, via Oral, Rectal, both Oral and Rectal, Enteric Tube, Stoma or Indwelling Cath eter, Enteric Contrast as designated per enteric contrast guidelines WARFARIN SODIUM (COUMADIN ORAL) Take 2.5 mg by mouth once da kristofer. clonazePAM (KLONOPIN) 0.5 mg tablet Take 0.5 mg by mouth t hree times daily. ascorbic acid, vitamin C, (VITAMIN C) 500 mg tab let Take 500 mg by mouth once daily. multivitamin tablet Take 1 tablet by mouth once daily. aspirin 81 mg chewable tablet Take 81 mg by mouth once daily . cetirizine (ZYRTEC) 10 mg tablet Take 10 mg by mouth once da kristofer. guaiFENesin (MUCINEX) 600 mg 12 hr tablet Take 1 ,200 mg by mouth twice daily. Spring Hernández DO, [facility] Clinical and Preventive Cardiology [facility] Referring Provider: SPRING HERNÁNDEZ [[id number]] Allergies As of Date: 07/03/2019 Noted Allergy Reaction LEVAQUIN (LEVOFLOXACIN) 08/14/2005 7 - Swelling KALEIGH INHIBITORS 09/03/2010 3 - Cough Date Reviewed: 07/03/2019 Reviewed by: Spring Hernández DO - Fully Assessed Reason for Visit: CARD Follow Up 6 Month [1231] Cmt: no issues Primary Visit Diagnosis:Coronary artery disease involving na tive coronary artery of chickaloon heart without angina pectoris [I25.10] Other Visit Diagnoses:Paroxysmal atrial fibrillation (HCC) [ I48.0] Ischemic cardiomyopathy [I25.5] Essential hypertension [I10] Mixed hyperlipidemia [E78.2] Order(s):pravastatin (PRAVACHOL) 10 mg tabletTake 1 ta blet by mouth daily at bedtime.Disp: 90 tabletRfl: 3 carvedilol (COREG) 25 mg tabletTake 1 tablet by mouth twice daily.Disp: 180 tabletRfl: 3 losartan (COZAAR) 100 mg tabletTake 1 tablet by mouth once daily.Disp: 90 tabletRfl: 3 digoxin (LANOXIN) 125 mcg (0.125 mg) tabletTake 1 tablet by mouth once daily.Disp: 90 tabletRfl: 3 furosemide (LASIX) 40 mg tabletTake 1 tablet by mouth once daily.Disp: 90 tabletRfl: 3 potassium chloride (KLOR-CON 10) 10 mEq tabletTake 1 tablet by mouth once daily.Disp: 90 tabletRfl: 3 CONSULT TO CHRONIC CARE (EU,FV,HL,LK,SANDRA,ME,MM,SP) [[id number]] Order #: [id number]: 1 Prescriptions as of 07/03/2019 Sig: PRAVASTATIN 10 MG TABLET Take 1 tablet by mouth daily * CARVEDILOL 25 MG TABLET Take 1 tablet by mouth twice * LOSARTAN 100 MG TABLET Take 1 tablet by mouth once d* DIGOXIN 125 MCG (0.125 MG) TA* Take 1 tablet by mouth once d * FUROSEMIDE 40 MG TABLET Take 1 tablet by mouth once d* POTASSIUM CHLORIDE ER 10 MEQ * Take 1 tablet by mouth once d * ENTERIC CONTRAST (RADIOLOGY P* For CT CHESTABD/PEL W IVCON R * COUMADIN ORAL Take 2.5 mg by mouth once torin* CLONAZEPAM 0.5 MG TABLET Take 0.5 mg by mouth three ti* ASCORBIC ACID (VITAMIN C) 500* Take 500 mg by mouth once torin * MULTIVITAMIN TABLET Take 1 tablet by mouth once d* ASPIRIN 81 MG CHEWABLE TABLET Take 81 mg by mouth once trixie* CETIRIZINE 10 MG TABLET Take 10 mg by mouth once trixie* GUAIFENESIN ER 600 MG TABLET,* Take 1,200 mg by mouth twice * Problem List As Of Date 07/03/2019 Noted Resolved Coronary atherosclerosis of unspecified type of*07/01/2005 0 12/23/2018 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 Dyslipidemia [E78.5] More... Hypertension [I10] More... Atrial fibrillation [I48.20] 01/16/2016 01/17/2016 More... CAP (community acquired pneumonia) [J18.9] 01/17/2016 More... Colon cancer (HCC) [C18.9] 01/17/2016 More... SUMMARY 01/17/2016 More... 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 CARVEDILOL 25 MG TABLET 180 * 3 07/03/2019 Route: ORAL Sig: Take 1 tablet by mouth twice daily. LOSARTAN 100 MG TABLET 90 t* 3 07/03/2019 Route: ORAL Sig: Take 1 tablet by mouth once daily. DIGOXIN 125 MCG (0.125 MG) TABLET 90 t* 3 07/03/2019 Route: ORAL Sig: Take 1 tablet by mouth once daily. FUROSEMIDE 40 MG TABLET 90 t* 3 07/03/2019 Route: ORAL Sig: Take 1 tablet by mouth once daily. POTASSIUM CHLORIDE ER 10 MEQ TABLET,* 90 t* 3 07/03/2019 Route: ORAL Sig: Take 1 tablet by mouth once daily. Medications Discontinued During This Encounter pravastatin (PRAVACHOL) 10 mg tablet 30 t* 11 12/23/201806/12 Route: ORAL Sig: Take 1 tablet by mouth daily at bedtime. Disc: Reason for discontinue is not on file. carvedilol (COREG) 25 mg tablet 180 * 3 09/01/2018 07/03/2019 Route: ORAL Sig: Take 1 tablet by mouth twice daily. Disc: Reason for discontinue is not on file. losartan (COZAAR) 100 mg tablet 90 t* 3 09/01/2018 07/03/2019 Route: ORAL Sig: Take 1 tablet by mouth once daily. Disc: Reason for discontinue is not on file. digoxin (LANOXIN) 125 mcg tablet 90 t* 3 09/01/2018 9 Route: ORAL Sig: Take 1 tablet by mouth once daily. Disc: Reason for discontinue is not on file. furosemide (LASIX) 40 mg tablet 90 t* 3 09/01/2018 07/03/2019 Route: ORAL Sig: Take 1 tablet by mouth once daily. Disc: Reason for discontinue is not on file. potassium chloride (KLOR-CON 10) 10 * 90 t* 3 09/01/201806/12 Route: ORAL Sig: Take 1 tablet by mouth once daily. Disc: Reason for discontinue is not on file. Disposition: Return in about 6 months (around 01/02/2020), or if symptoms worsen or fail to improve, for Follow-up. Follow-up and Disposition History Recorded Letter Text Encounter Status:Closed by SPRING HERNÁNDEZ on 07/03/19 obsolete on 2018-06 OBSOLETE Refill Normal 06-17-2018 Oneal (AGCARDWST) DARRELL CORONEL ([id number]) 1940 M Date Time Provider Vpnwnkuhfk53/7/18 LEVAR GUSMAN AGCARDWST During your Medical visit today, we recorded the following information about you:Allergies As of Date: 06/17/2018 Noted [facility] ReactionLEVAQUIN (LEVOFLOXAC IN) 08/14/2005 7 - SwellingACE INHIBITORS 09/03/2010 3 - CoughDate Reviewed: ([id number]) 12/29/2017Reviewed by: Abby Chicas RN - Fully AssessedReason for Visit: Refill Request [94]Order(s):carvedilol (COR EG) 25 mg tabletTake 1 tablet by mouth twice daily.Disp: 180 tabletRfl: 3Prescriptions as of 018 Sig: CARVEDILOL 25 MG TABLET Take 1 tablet by mouth twice * LOSARTAN 100 MG TABLET Take 1 tablet by mout h once d* ENTERIC CONTRAST (RADIOLOGY P* For CT CHESTABD/PEL W IVCON R* FUROSEMIDE 40 MG TABLET Take 1 tablet by mouth once d* DIGOXIN 125 MCG TABLET Take 1 tablet by mouth once d* COUMADIN ORAL Take 2.5 mg by mouth once torin* CLONAZEPAM 0.5 MG TABLET Take 0.5 mg by mouth three ti* ASCORBIC ACID (VITAMIN C) 50 0* Take 500 mg by mouth once torin* MULTIVITAMIN TABLET Take 1 tablet by mouth once d* ASPIRIN 81 MG CHEWAB LE TABLET Take 81 mg by mouth once trixie* POTASSIUM CHLORIDE ER 10 MEQ * Take 1 tablet by mouth once d* NIAC IN ER 500 MG TABLET,EXTEN* Take 2 tablets by mouth daily*Problem List As Of Date 06/17/2018 Noted Resolved CO RONARY ATHEROSCLER UNSPEC VESSEL [I25.10] INVALID FOR* 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 Dyslipidemia [E78.5] More... Hypertension [I10] M ore... Atrial fibrillation [I48.2] INVALID FOR*01/17/2016 More... CAP (community acquired pneumonia) [J18.9] INVALID FOR* More... Colon cancer (HCC) [C18.9] INVALID FOR* More... SUMMARY INVALID FOR* More... PAD (pe ripheral artery disease) (HCC) [I73.9] INVALID FOR*Prescriptions ordered this encounter Disp Refills Start End CARVEDILOL 25 MG TABLET 180 * 3 06/17/2018 Cmt: This prescription was filled on 06/17/2018. Any ref ills authorized will be placed on file. Route: ORAL Sig: Take 1 tablet by mouth twice daily.Medications Disc ontinued During This Encounter carvedilol (COREG) 25 mg tablet 180 * 3 09/06/2017 06/17/2018 Route: ORAL Sig: T blanca 1 tablet by mouth twice daily. Disc: Reason for discontinue is not on file. 2732Encounter Status:Closed by CELIA MARIE MA on 06/17/18 office visit on 01-18-08 Documentation of Done Invalid 03-19-2017 - [facility] current medications Interpretation Code 03-19-2017 [facility] ([id number]) Tobacco smoking Never Invalid 03-19-2017 - [facility] status NHIS Interpretation Code 03-19-20 17 [facility] ([id number]) Tobacco use CPHS Never Invalid 03-19-2017 - [facility] smoker Interpretation Code 03-19-2017 [facility] ([id number]) Vital Signs Vital Sign Description Value / Unit Date Location The following section is limited to 5 en tries per type and includes entries from the following time range: 20200417 - 7. 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 04-16-2020 - Follow-up Angelito [facility] c 04-16-2020 encounter 04-16-2020 ICD Remote F/U Angelito Nguyen [facility] 04-16-2020 - Patient encounter [facility] 04-16-2020 procedure 04-16-2020 Results Only [facility] Provider [facility] Procedures Procedure Name Date Provider Location CARDIAC DATA AND REPORT [facility]-16-2020 [facility][id number][facility] ICD REMOTE CHECK 04-16-2020 Angelito Nguyen [facility]ering[facility] ([id number]) Plan of Treatment Plan Description Date Location LIPID SCREEN LIPID SCREEN 12-23-2022 - [facility] 12-23-2022 ([id number]) DIABETES SCREEN DIABETES SCREEN 06-29-2021 - [facility] 06-29-2021 ([id number]) BP CONTROLLED (<130/80) BP CONTROLLED (<130/80) 01-28-2021 - [facility] 01-28-2021 ([id number]) INFLUENZA (#1) INFLUENZA (#1) 2020 - [facility] 03-12-2020 ([id number]) LDL CHOLESTEROL LDL CHOLESTEROL 12-23-2018 - [facility] 12-23-2018 ([id number]) COLORECTAL CANCER COLORECTAL CANCER 09-04-2017 - [facility] inic SCREENING,SEE MODIFIER SCREENING,SEE MODIFIER 09-04-2017 ([id number]) Appointment Appointment 03-19-2017 - [facility] er 03-19-2017 [facility] Orthopa[facility] ([phone]) ADVANCE DIRECTIVE ADVANCE DIRECTIVE 10-21-2016 - [facility] inic DISCUSSION DISCUSSION 10-21-2016 ([id number]) SHINGRIX VACCINE (1 of SHINGRIX VACCINE (1 of 1991 - [facility] 2) 2) 1991 (65292) DTAP,TDAP,TD (1 - Tdap) DTAP,TDAP,TD (1 - Tdap) 02-28-1960 - [facility] 02-28-1960 ([id number]) ANNUAL PCP TEAM CHRONIC ANNUAL PCP TEAM CHRONIC 1959 - [facility] DISEASE VISIT DISEASE VISIT 1959 ([id number]) no information [facility] ([id number]) no information [facility] er [facility] Medicine [facility] Orthopa[facility] (44 691) Immunizations Vaccine Notes Status Date Location Influenza Vaccine, influenza virus (completed) 04-03-2009 - [facility] Split-Non Spec vaccine, unspecified 04-03-2009 (4419 5) formulation [facility]neum[facility] pneum[facility] ([facility]2015 (441 95) 23 valent TD Adult tetanus and diphtheria (completed) 01-20-2011 - [facility] toxoids, adsorbed, 01-20-2011 (22689) preservative free, for adult use (2 Lf of tetanus toxoid and 2 Lf of diphtheria toxoid) Payers Payer Name Policy Number Location [employer] MEDICARE [id number] [facility] (44 195) [employer]ET[employer] MEDICARE PPO [id number] [facility] ([id number]) The following information is from the original human readable contentNo Payer Records FoundNo Payer Records FoundNo Payer Records FoundNo Payer Records FoundNo Payer Records Found Social History Type Social History Date Location Description Tobacco smoking status Never smoker 01-29-2020 - [facility] NHIS 01-29-2020 ([id number]) Tobacco use and Never used 01-29-2020 - [facility] exposure 01-29-2020 (86388) Alcohol intake Current non-drinker of 01-29-2020 [facility] alcohol (finding) 01-29-2020 (27339) Sex Assigned At Male [facility] (40519) The following information is from the original human readable contentNo Social History Records FoundNo Social History Records FoundNo Social History Records FoundNo Social History Records FoundNo Social History Records FoundNo Social History Records FoundNo Social History Records Found Medical Equipment Equipment Code (if Equipment Original Equipment Procedure Code D ates provided) Text (if provided) Identifier (if (if provided) provided) Rqw-Ee-Y-Kind Implant 364461_[facility] 2011 - [id number] Xfg-[id number] Implant 364462_[facility] 2011 - [id number] Shell Actb 58mm Prim [id number]_[facility] 012 Sb Hmsphr - [id number] Head Fem -4mm 28mm 364479_[facility] 2 Cocr Lfit V - [id number] Stem Fem Nk Acld Tmzf 364480_[facility] 2011 3 Hip - [id number] [place] Mri [id number]_[facility] 6 6fr Polyurethane Implantable Infusion Slim Catheter - [id number] Summary Purpose Family History No Family History Records FoundNo Family History Records FoundNo Family History Records FoundNo Family History Records Found Advance Directives Documents on File Type Date 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 Plan: Continue anticoagulation ICD (implantable cardioverter-defibrillator) in place 201412/23/2018 HTN (hypertension) 06/18/2015 12/23/2018 Coronary atherosclerosis of unspecified type of vessel, carmelo ve 07/01/2005 12/23/2018 or graft Additional Source Comments FOR RECORDS PERTAINING TO PATIENTS WHO ARE OR HAVE BEEN ENROLLED IN A CHEMICAL DEPENDENCY/SUBSTANCE ABUSE PROGRAM, SOME INFORMATION MAY BE OMITTED. This clinical summary was aggregated from multiple sources. Caution should be exercised in using it in the provision of clinical care. This summary normalizes information from multiple sources, and as a consequence, information in this document may materially changethe coding, format and clinical context of patient data. In addition, data may be omittedin some cases. CLINICAL DECISIONS SHOULD BE BASED ON THE PRIMARY CLINICAL RECORDS. [facility] provides no warranty or guarantee of the accuracy or completeness of information in this document. UNRECOGNIZED CONTENT PROVIDED BELOW FOR UNRECOGNIZED SECTION No Status Records FoundNo Status Records FoundNo Status Records FoundNo Status Records Found UNRECOGNIZED CONTENT PROVIDED BELOW FOR UNRECOGNIZED SECTION INFORMATION SOURCE DATE CREATED AUTHOR AUTHOR'S ORGANIZATIO N 01/04/2018 [facility] DATE CREATED AUTHOR AUTHOR'S ORGANIZATIO N 06/21/2018 [facility] DATE CREATED AUTHOR AUTHOR'S ORGANIZATIO N 12/12/2019 [facility] DATE CREATED AUTHOR AUTHOR'S ORGANIZATIO N 02/03/2020 [facility] UNRECOGNIZED CONTENT PROVIDED BELOW FOR UNRECOGNIZED SECTION Source Comments In the event this information is protected by the Federal Confidentiality of Alcohol and Drug Abuse Patient Records regulations: The Federal rules restrict any use of the information to criminally investigate or prosecute any alcohol or drug abuse patient.[facility] the event this information is protected by the Federal Confidentiality of Alcohol and Drug Abuse Patient Records regulations: The Federal rules restrict any use of the information to criminally investigate or prosecute any alcohol or drug abuse patient[facility] UNRECOGNIZED CONTENT PROVIDED BELOW FOR UNRECOGNIZED SECTION Procedure Notes Angelito Nguyen MD - 04/17/2020 2:05 PM EDTAssociated Order(s): CARDIAC DATA AND REPORTDUAL LEAD ICD REMOTE EVALUATION: PRESENTING EGM: /SUPERINTENDENT BATTERY STATUS: Normal with no significant depletion, longevity remaining 5 yrs. COUNTERS SINCE: 01/16/2020 ATRIAL ARRHYTHMIAS: There have been 0 triggered episodes of atrial high rates. VENTRICULAR ARRHYTHMIAS: There have been no ventricular detections. LEAD MEASUREMENTS: Sensing is appropriate. Review of the lead impedance trends are normal. OTHER DIAGNOSTICS: RV pacing 46%. FOLLOW UP: Continue with 3 month remotes and yearly in-clinic visits. Mariela Garcia RN/Mariela Cage RN NOTE TO PROVIDERS: CARD Flowsheets contain detailed device programming and testing data. Paceart/Interrogation PDF can be found under CARDIAC DATA AND REPORT, Scanned Documents section. documented in this encounter
== END ==
PROVIDERS: PCP Family Medicine; Referring Provider Family Medicine; Visit Provider Family Medicine
DX: M79.661 Pain in right lower leg (principal)
CPT/HCPCS: 93971

== ENCOUNTER 2019-11-30 17:20 | Emergency (ER) | payer MEDICARE, SELFPAY ==
[2019-11-30 17:21] VITALS: BP 176/82; PULSE 56; RESP 16; TEMP 36.9; O2SAT 97; BMI 29.6
--- NOTE | 2019-11-30 18:52 | CT_ITS ---
CT of the right lower extremity INDICATION: Swelling TECHNIQUE: CT of the right lower extremity was performed following contrast administration followed by sagittal and coronal reconstructions. Radiographic technique was optimized to limit patient radiation dose. DLP was 922.97 FINDINGS: Examination of the upper calf and knee weren''t limited by extensive artifact due to presence of indwelling knee prosthesis. No evidence for acute fracture. No lytic destructive changes. There is nonspecific subcutaneous edema or cellulitis diffusely throughout the calf. Within the upper calf, there is thickening of the muscles of the posterolateral compartment which demonstrate mildly diffusely increased attenuation suggesting intramuscular hemorrhage with effacement of the myofascial fat planes. CT/Extremity Lower WITH Contrast IMPRESSION: Diffuse subcutaneous edema of the fat planes of the calf in association with thickened mildly hyperattenuated muscles in the posterolateral aspect of the calf most likely representing intramuscular hemorrhage with effacement of the myofascial fat planes. No evidence for associated fracture or other significant bony pathology This may be further assessed with MRI if clinically warranted Electronically Signed: Josh Dumont MD at 21:00 EDT , Service support ,
--- NOTE | 2019-11-30 18:54 | ED.VISSUMM ---
- ER Visit Summary Date of Service: 11/30/19 Chief Complaint: [Right leg swelling and mass] History of Present Illness: The patient is a 79 M [presents to the emergency department with swelling in his right leg and discomfort that started 4 days ago. Patient states that he woke up with mild discomfort initially but progressively worsened. Patient had a venous Doppler yesterday that was negative for DVT. Patient was told that he had a mass in his calf when the radiologist interpreted the study. Patient has a pacemaker and defibrillator and they were going to do an MRI but needs to be preapproved for it. His primary care physician sent him to the ER because he was complaining of continued pain and they wanted to get a CT scan of the leg. She has not had any fevers. Patient did have an INR check as he is on Coumadin 2 days ago and his INR was 2.6.] Patient states that his Coumadin level 10 days ago was over 3. Physical Examination: [HEENT-PERRLA, EOMI. Cranial nerves II through XII grossly intact. TMs clear. Mucous membranes moist. No adenopathy. Cardiovascular-regular rate and rhythm without murmur or ectopy Lungs-clear to auscultation, chest wall stable without crepitus or subcu emphysema Abdomen-normoactive bowel sounds, soft, nontender, no rebound or rigidity, no peritoneal signs. Extremities-intact ?4, normal range of motion, normal pulses, atraumatic. Right leg-patient has diffuse soft tissue swelling from the knee to the ankle. No obvious masses palpated. The compartments are soft and there is no evidence of compartment syndrome. He is got normal dorsal pedal and posterior tibial pulses. Patient has normal popliteal pulses.] Test Results: [CBC with differential obtained showed a white count 7.2, hemoglobin 12.9, hematocrit 40, plates 164. Chemistries unremarkable. CT scan with IV contrast of the right lower extremity was read by radiology as diffuse subcutaneous edema of the fat planes of the calf in association with thickened mildly hyper attenuated muscles in the posterior lateral aspect of the calf most likely representing intramuscular hemorrhage with effacement of the myofascial fat planes. No evidence for associated fracture or other significant bony pathology noted. This may be further assessed with MRI if clinically warranted.] Emergency Department Course and Treatment: [Case will be discussed with patient's primary care physician regarding his Coumadin. Patient currently in sinus rhythm. Will discuss discontinuing Coumadin and treating patient with [place] for pain.] Treatment Plan: [Patient will be referred to orthopedics as well for follow-up] Disposition: [Discharged home in stable condition] Impression: [Right calf pain secondary to spontaneous intramuscular hemorrhage Coumadin coagulopathy] This note was generated with [employer] dictation software. It may contain incorrect words, spelling, and punctuation that were not noted in review of the chart prior to signing ED Disposition - Plan for ED Patient: Referrals: Ghanshyam Barfield MD [Primary Care Provider] -
[2019-11-30 19:12] VITALS: BP 150/78; PULSE 63; RESP 16; TEMP 36.8; O2SAT 97
[2019-11-30 19:45] LABS: Absolute Lymphocyte Count 0.85 X10^3/uL (0.83-4.51); Absolute Neutrophil Count 5.6 X10^3/uL (2.0-7.7); Basophil# 0.02 X10^3/uL; Basophil% 0.3 % (0-1); Eosinophil# 0.24 X10^3/uL; Eosinophils% 3.3 % (0-5); Hematocrit 40.1 % (40-54); Hemoglobin 12.9 g/dL (13.0-16.5); Lymphocyte # 0.85 X10^3/ul (4.0); Lymphocyte % 11.8 % (19-41); Mean Corp Hgb Conc 32.2 g/dL (32-36); Mean Corpuscular Hgb 31.5 pg (27.0-32.0); Mean Corpuscular Volume 97.8 fL (80-94); Monocyte# 0.48 X10^3/uL; Monocyte% 6.7 % (0-10); NRBC Flagged by Analyzer 0 % (0-5); Neutrophil # 5.57 X10^3/uL (2.7-7.7); Neutrophil % 77.5 % (47-70); Platelet Count 164 K/mm3 (150-450); RBC Distribution Width CV 13.4 % (11.6-14.6); RBC Distribution Width SD 47.7 fl (35.1-43.9); White Blood Count 7.2 K/mm3 (4.4-11.0)
[2019-11-30 20:09] LABS: Anion Gap 4 (5-15); BUN 17 mg/dL (7-18); BUN/Creat Ratio 18.6 RATIO (10-20); Chloride 105 mmol/L (98-107); Creatinine, Serum 0.91 mg/dL (0.70-1.30); EST Glomerular Filtration Rate 85 mL/min (>60); Est Glom Filt Rate - Afr Amer 103 mL/min (>60); Estimated Creatinine Clearance 51.67 ml/min; Glucose 93 mg/dL (74-106); Potassium 4.5 mmol/L (3.5-5.1); Sodium Level 142 mmol/L (136-145)
[2019-11-30 21:31] VITALS: PULSE 58; RESP 14; O2SAT 100
--- NOTE | 2019-11-30 21:42 | ED.DEP ---
ED Disposition - Plan for ED Patient: Instructions: ED Hematoma Prescriptions: Hydrocodone Bitart/Apap 5-325 [[place] 5MG-325MG] 1 tab PO Q4H PRN PRN 2 Days #20 tab PRN Reason: Pain Prescription Printed Referrals: Ghanshyam Barfield MD [Primary Care Provider] - 3-5 Days Alyson Harrell DO [STAFF PHYSICIAN] - 3-5 Days
[2019-11-30 22:24] VITALS: BP 114/68; PULSE 54; RESP 12; O2SAT 99
--- OUTSIDE RECORDS SUMMARY | 2020-04-23 15:42 | XMS RPT_ITS | CCD ---
:1940 External Reference #:[id number] Author Organization [facility] Care Team Providers Name Role Phone Julio Cesar Cesilia Unavailable Sascha Mckeon Unavailable NASEEM Unavailable Unavailable IMCA Unavailable Unavailable NASEEM Unavailable Unavailable NASEEM Unavailable Unavailable Marc Barfield Primary Care Provider Patrick Unavailable Allergies Reported Allergen Reaction(s) Severity Date of Onset Location Angiotensin Cough 09-03-2010 - [facility] Converting Enzyme System Rep ository (Kaleigh) Inhibitors Translations: [ KALEIGH INHIBITORS] levoFLOXacin Moderate, 07-08-2011 - [facility] ter Moderate Sports Medicine and Orthopaedics (6 7738) levoFLOXacin Swelling High 08-14-2005 - [facility] Translations: [ System Repos itory LEVOFLOXACIN] Medications Medication Name Sig Date Prescriber Location Ascorbic Acid ascorbic acid, vitamin C, Ccf Provider [facility] ([id number]) (VITAMIN C) 500 mg tablet Take 500 mg by mouth once daily. 0 Active Comment: Take 500 mg by mouth once da kristofer. aspirin BABY ASPIRIN 81 MG CHEW 07-08-2011 [facility] Sports ASPIRIN [id number] Medicine and Orthopaedics Dianne Alaniz (06236) aspirin 81 mg chewable tablet Ccf Provider [facility] Sports Medicine Take 81 mg by mouth once daily. 0 and Orthopaedics (22166) Active Comment: Take 81 mg by mouth once torin ly. carvedilol carvedilol (COREG) 25 07-03-2019 [facility] Sh[facility] mg tablet Take 1 [facility] Sports Medi cine and tablet by mouth twice Orthop aedics (76389) daily. 180 tablet 3 07/03/2019 Active COREG 25 MG TABS 07-08-2011 [facility] Medicine CARVEDILOL [id number] Dianne luis Orthopaedics (55894) Katty Comment: Take 1 tablet by mouth twice daily. clonazePAM CLONAZEPAM 0.5 MG TABS 07-08-2011 [facility] Sports CLONAZEPAM Medici ne and Orthopaedics [id number] Dianne Alaniz ( 47387) Comment: Take 0.5 mg by mouth three t imes daily. digoxin digoxin (LANOXIN) 125 07-03-2019 [place] Shrest[facility] mcg (0.125 mg) tablet Vito Sports Medicine and Take 1 tablet by mouth Ortho paedics (19601) once daily. 90 tablet 3 07/03/2019 Active DIGOXIN TABS DIGOXIN TABS 07-08-2011 [facility] [id number] Dianne Alaniz and O rthopaedics (72416) DIGOXIN TABS DIGOXIN TABS 07-08-2011 [facility] [id number] Dianne Alaniz and O rthopaedics (18044) DIGOXIN TABS DIGOXIN TABS 07-08-2011 [facility] [id number] Dianne Alaniz and O rthopaedics (23551) Comment: Take 1 tablet by mouth once daily. fluticasone FLONASE 50 MCG/ACT SUSP 07-08-2011 - 03-19-2017 [facility] Sports Medicine and FLUTICASONE PROPIONATE Ortho paedics (03469) [phone] Alyson Harrell FLONASE 50 MCG/ACT SUSP 07-08-2011 [facility] Sports FLUTICASONE Medicine and Orthopaedics PROPIONATE [id number] Dianne Buckner (4 4691) Katty FLONASE 50 MCG/ACT SUSP 07-08-2011 - 03-19-2017 [facility] Sports Medicine a nd Orthopaedics FLUTICASONE PROPIONATE (57141) [id number] Alyson Harrell FLONASE 50 MCG/ACT SUSP 07-08-2011 [facility] Sports FLUTICASONE Medicine and Orthopaedics PROPIONATE [phone] Dianne M (4 4691) Stuartagley FLONASE 50 MCG/ACT SUSP 07-08-2011 [facility] Sports FLUTICASONE Medicine and Orthopaedics PROPIONATE [id number] Dianne M (4 4691) Stuartaglvicenta furosemide furosemide (LASIX) 40 07-03-2019 [facility] mg tablet Take 1 [facility] cine and tablet by mouth once Orthopa edics (29386) daily. 90 tablet 3 07/03/2019 Active FUROSEMIDE TABS 07-08-2011 [facility] [place]UROSEMIDE TABS [id number] Dianne M and Orthopaedics (48867) Yeagley FUROSEMIDE TABS 07-08-2011 [facility] FUROSEMIDE TABS [id number] Dianne M and Orthopaedics (33062) Yeagley FUROSEMIDE TABS 07-08-2011 [facility] FUROSEMIDE TABS [id number] Dianne M and Orthopaedics (88356) Katty Comment: Take 1 tablet by mouth once daily. Ipratropium Ipratropium Wynona 08-16-2019 Rachelle ([facility]) [facility] (ATROVENT) 0.03 % [facility] (32972) nasal spray Use 2 Sprays in the nose once daily. 0 08/16/2019 Active Comment: Use 2 Sprays in the nose onc e daily. losartan losartan (COZAAR) 100 07-03-2019 [facility] mg tablet Take 1 [facility] and tablet by mouth once Orthopa edics (61704) daily. 90 tablet 3 07/03/2019 Active COZAAR 50 MG TABS 07-08-2011 [facility] Medicine LOSARTAN POTASSIUM [id number] Dianne and Orthopaedics (08354) Sita Alaniz Comment: Take 1 tablet by mouth once daily. multivitamin tablet multivitamin tablet Take 1 Ccf Pro vider [facility] tablet by mouth once daily. (15784) 0 Active multivitamin tablet Take 1 tablet by mouth Ccf P rofadia [facility] (84134) once daily. 0 Active Comment: Take 1 tablet by mouth once daily. niacin NIACIN 500 MG TABS 07-08-2011 [facility] NIACIN Sports Med icine and [phone] Dianne Buckner Orthopaed [facility] (89870) Yeagley Potassium Chloride potassium chloride 07-03-2019 [place] Shrest[facility] (KLOR-CON 10) 10 mEq Vito (89799) tablet Indications: Essential hypertension Take 1 tablet by mouth once daily. 90 tablet 3 07/03/2019 Active Comment: Take 1 tablet by mouth once daily. tamsulosin tamsulosin ER (FLOMAX) 0.4 mg Take Ccf Pr [facility] (22374) 0.4 mg by mouth daily at bedtime. 0 Active Comment: Take 0.4 mg by mouth daily a t bedtime. warfarin COUMADIN 3 MG TABS 03-19-2017 [facility] Sports WARFARIN SODIUM [phone] Medicine and Orthopaedics Alyson Harrell (81066 ) Problems Active Problems Category Problem Name Status Date Location Acute cerebrovascular Cerebrovascular Active 06-18-2015 - [facility] disease accident (28031) Acute myocardial Myocardial infarction Active 01-15-2016 - [facility] infarction (25122) Cancer of colon Malignant tumor of Active 07-02-2015 - [facility] colon (53065) Cardiac dysrhythmias Atrial fibrillation Active 06-18-2015 - [facility] (07054) Conduction disorders Automatic implantable Active 02-28-2008 - [facility] cardiac defibrillator (96791 ) in situ Coronary Atherosclerotic heart Active 06-18-2015 - [facility] atherosclerosis and disease of [place] (64106) other heart disease coronary artery without angina pectoris Disorders of lipid Dyslipidemia Active 11-16-2008 - [facility] metabolism (58946) Essential hypertension Essential hypertension Active 07-01-[address] [place] [address] (78632) Gout and other crystal Gout Active 07-01-2005 - [facility] arthropathies (33942) Heart valve disorders Mitral valve disorder Active 07-01-2005 - [facility] (28452) Osteoarthritis Degenerative joint Active 07-01-[address] - 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 - [facility] myocarditis; (54851) cardiomyopathy (except that caused by tuberculosis or sexually transmitted disease) Peripheral and visceral Peripheral vascular Active 12-10-2016 - [facility] atherosclerosis disease, unspecified (441 95) 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-2015 - [facility] neoplasm of (19452) intra-abdominal lymph nodes Unclassified Unknown / UNK(Unknown) Active 04-26-2017 - [facility] (14800) Unclassified SUMMARY Active 01-17-2016 - [facility] (56527) Unclassified Patient encounter Active 06-06-2013 - [facility] status (43799) Unclassified No current problems or Active [facility] disability Sports Medicine and Orthopaedics (4 4691) Past or Other Problems Category Problem Name Status Date Location Gastrointestinal Rectal hemorrhage Completed 05-14-2015 - [facility] hemorrhage (79972) Other connective tissue Arthrodesis status Completed 03-19-2017 - [facility] disease Sports Medicine and Orthopaedics (4 4691) Other non-traumatic Sacroiliac disorder Completed 08-19-2018 - [facility] joint disorders (46970) Other non-traumatic Ankle pain Completed 03-19-2017 - [facility] joint disorders Sports Medic ine and Orthopaedics (4 4691) Other non-traumatic Hip pain Completed 11-20-2011 - [facility] joint disorders (81441) Pneumonia (except that Community acquired Completed 01-17-2016 - [facility] caused by tuberculosis pneumonia (4419 5) or sexually transmitted disease) Residual codes; Pain in buttock Completed 08-19-2018 - [facility] unclassified (09466) Superficial injury; Contusion of left Completed 09-28-2018 - [facility] contusion hip, initial (04003) encounter Results Result Name Value Range Unit Interpretation Flag Date Location No panel information on 2020-04-17 AV Delay Adaptive Paced 350 ms 2019 [facility] Minimum (ms) (89130) AV Delay Adaptive Sensed 325 ms 04-17 [facility] Minimum (ms) (97505) Battery Voltage 2.96 V 04-17-2020 [facility] (29968) BLANK _ 04-17-2020 [facility] (28757) Danny RA Pacing 2 V 04-17-2020 [facility] Amplitude (volts) (4 4195) Danyn RA Pacing Polarity BI 04-17 [facility] (64542) Danny RA Sensing 0.5 mV 04-17-2020 [facility] Amplitude (mvolts) ( 87354) Danny RA Sensing BI 04-17-2020 [facility] Polarity (51291) Danny RV Pacing 2.5 V 04-17-2020 [facility] Amplitude (volts) (4 4195) Danny RV Pacing Polarity BI 04-17 [facility] (32794) Danny RV Sensing 0.5 mV 04-17-2020 [facility] Amplitude (mvolts) ( 82887) Danny RV Sensing BI 04-17-2020 [facility] Polarity (10987) Detection Configuration 1 - Zone 2019 [facility] (Vent) (65223) ICD FastVT DISABLED 04-17-2020 [facility] DetectionStatus (441 95) ICD-AMS EPISODES 180 {beats}/min 04-17-2020 [facility] (76110) ICD-ATP Episodes (Vent) 0 2019 [facility] (37506) ICD-Device Mfg STJ 04-17-2020 [facility] (89069) ICD-LEADIMPEDANCEATRIAL 290 ohm 2019 [facility] (71034) ICD-Percent Pacing 1.6 % 04-17-2020 [facility] (Atrial) (90372) ICD-Percent Pacing 46 % 04-17-2020 [facility] (Vent) (00213) ICD-Shocks Aborted 0 04-17-2020 [facility] (Vent) (63681) BHQ-FOUCFM-XQYLTBYBK 0 0 [facility] (86729) ICD-SHOCKSABORTED 0 04-17-2020 [facility] (50325) ICD-SHOCKSDELIVEREDVENTR 0 04-17 [facility] ICULAR (16063) Implant Date 02/09/2017 04-17-2020 [facility] (12443) Implant Date 04/02/2009 04-17-2020 [facility] (45740) Lead Impedance (RV) 390 ohm 04-17-2020 [facility] (97763) Lead Impedance High 45 ohm 04-17-2020 [facility] Voltage (83917) Lead[facility]fg . [facility] 04-17-2020 [facility] (13905) Lead2 Mfg . [facility] 04-17-2020 [facility] (77752) Location RV 04-17-2020 [facility] (93931) Location RA 04-17-2020 [facility] (67923) Lower Rate (bpm) 50 {beats}/min 04-17-2020 [facility] (67324) Max Sensor Rate (bpm) 105 {beats}/min 2019 [facility] (20515) MDT_PROG_TACHY_ZONE_DETE ENABLED 04-17 [facility] CTIONS_STATUS (53008 ) Model 1699TC OptiSense 04-17-2020 [facility] (57789) Model 2357-40Q Fortify 04-17-2020 [facility] Jignesh HERBERT (38860) Model 7121Q Durata SJ4 04-17-2020 [facility] (62305) Pacing Mode DDD 04-17-2020 [facility] (82879) Serial Number [id number] 04-17-2020 [facility] (40252) Serial Number [id number] 04-17-2020 [facility] (06997) Serial Number [id number] 04-17-2020 [facility] (46338) Test Charge Energy 40 J 04-17-2020 [facility] (60296) Test Charge Time 9.1 s 04-17-2020 [facility] (72799) Therapy Status (Vent) Enabled 04-17-20 20 [facility] (16671) Thresh RA Capture 1 V 04-17-2020 [facility] Amplitude (volts) (4 5295) Thresh RA Capture 0.5 ms 04-17-2020 [facility] Duration (ms) (46885 ) Thresh RA Sensing 1.5 mV 04-17-2020 [facility] Amplitude (mvolts) ( 39099) Thresh RV Capture 1.25 V 04-17-2020 [facility] Amplitude (VOLTS) (4 4195) Thresh RV Capture 0.5 ms 04-17-2020 [facility] Duration (MS) (39751 ) Thresh RV Sensing 12 mV 04-17-2020 [facility] Amplitude (MVOLTS) ( 87816) Tracking Rate (bpm) 95 {beats}/min 04-17-20 [facility] (24258) VF Zone Detection 320 ms 04-17-2020 [facility] Interval (95062) VF Zone Therapy 0 ATP(s) + 6 04-17-2020 [facility] Configuration Shock(s) (57838 ) No panel information on 2020-04-16 [facility] (35942) progress on 2020-01 PROGRESS HNO ID: [id number] Normal 01-29-2020 [facility] Author: Kristie Hitchcock [facility] ([id number]) Service: ? Author Type: Nurse Practitioner Type: [...] cycles completed 01/08/2016. Patient pr esented to [facility] on 01/15/2016 with complaints of co ugh, increasing shortness of breath and wheezing. Found to have a n elevation of troponin and was admitted and started on Lasix. He was then transferred to the [facility]. He underwent a left heart catheterization [...] necessary for today's visit. ? Kristie Hitchcock APRN.ASSOCIATE PROFESSOR OF HISTORY ? cnovsp on 2020-01-11 0 CNOVSP Visit (SP) Office (NASEEM) Normal [facility] DARRELL CORONEL ([id number]) 1940 M [facility] Date Time Provider Department (57816) 01/29/20 10:30 AM KRISTIE HITCHCOCK During your visit today, we recorded the following informati on about you: Temperature Pulse Blood pressure Weight 97.7 degrees 57/minute 125/68 73.5 kg Kristie Hitchcock, MICHEL.ASSOCIATE PROFESSOR OF HISTORY 01/29/2020 2:44 PM Signed Chief Complaint Patient [...] x9 cycles completed . Patient presented to [facility] on 01/15/2016 with complaints o f cough, increasing shortness of breath and wheezing. Amy d to have an elevation of troponin and was admitted and started on Lasix. He was then transferred to the main [facility]. He underwent a left heart catheterization [...] necessary for today's visit. ? Kristie Hitchcock APRN.ASSOCIATE PROFESSOR OF HISTORY ? Meenu Verma LPN 01/29/2020 10:32 AM Signed Est patient. Six month OV. 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] Order(s):CT ABD/PEL W IVCON [[id number]] Order #: [id number] FU TURE CT CHEST W IVCON [[id number]] Order #: [id number] FUTURE iv contrast (will be provided with [...] EachRfl: 0 CREATININE BLD [SQCRET] Order #: [id number] FUTURE Follow-up and Disposition History Recorded Prescriptions [...] ankle [M10.9] 06/18/2015 Coronary artery disease involving [place] watson*06/18/2015 S/P CABG (coronary artery bypass graft) [...] Verma LPN Encounter Status:Closed by KRISTIE HITCHCOCK ASSOCIATE PROFESSOR OF HISTORY on 01/29/20 cea on 2020-01-29 CEA 1.0 0.0-2.9 ng/mL Normal 01-29-2020 [facility] (34729) Comment: Result Comment: Test analyze d by the Wilian DxI method. Performed By: #### CEA ####C [facility] [place], [place] [phone] progress on 2019-12 PROGRESS HNO ID: [id number] Normal 01-01-2020 [facility] Author: Alexis Craft [facility] ([id number]) Service: ? Author Type: Physician Type: Progress Notes Filed: 01/01/2020 1:59 PM Note Text: Alexis Craft MD Interventional Cardiology [address] [place] [address] Chief Complaint Patient presents with: Heart Problem Cardiology follow up HISTORY OF PRESENT ILLNESS: Mr. Coronel is a 79 year old male seen today in follow-up t here are extensive cardiac history in the past history of bypass surg joby for severe three-vessel coronary artery disease in 2005 with 5 vessel b ypass graft done at the [facility] patient has severe LV syst olic [...] IJ port - S PACK PHACO 30K 6611-8412-22 Left - SKIN BX, 1 LESION 07/30/14 [...] Medications Medication Sig Dispense Refill - Ipratropium Wynona (ATROVENT) 0.03 % nasal spray Use 2 [...] was partially created using a dictation recog [employer] software. A reasonable attempt has been made to correct any errors. ecg complete on ECG COMPLETE NAME : DARRELL CORONEL Normal [facility] PID : [id number] Kyle scales ([id number]) : 1940 Gender : Male Race : ORD : [id number] Procedure Date : Jan 01 2020 13:10:37 [...] ms QTC Calculation(Bazett) : 440 ms P [place] : 71 degrees R [place] : -33 degrees T [place] : 43 degrees Test Reason : Location : 189 : WOASC Overread By : SANDRA DANG M.D. Edited By : SANDRA DANG M.D. Referred By : ALEXIS CRAFT Acquired by : nathan canales cnov on 2020-01-01 CNOV Office Visit (STACY) Normal 01-01-[address] [place] [address] [facility] DARRELL CORONEL ([id number]) 1940 [facility] Date Time Provider Department (54372) 01/01/20 1:00 PM ALEXIS CRAFT During your visit today, we recorded the following informati on about you: Pulse Respiration Blood pressure Weight 62/minute 16/minute 112/62 72.6 kg Alexis Craft MD 01/01/2020 1:59 PM Signed Alexis Craft MD Interventional Cardiology [address] [place] [address] Chief Complaint Patient presents with: Heart Problem Cardiology follow up HISTORY OF PRESENT ILLNESS: Mr. Coronel is a 79 year old male seen today in follow-up there are extensive cardiac history in the past history of bypass torres rgery for severe three-vessel coronary artery disease in 2005 with 5 vessel bypass graft done at the [facility] patient has severe LV systolic dysfunction [...] FIVE 08/27/05 - COLONOSCOP W/ OR W/O [facility] SPEC 06-25-15 - COLONS W/REM POLYP HT BX 09/04/2016 - ICD (ICD) 03/19/06 and 04/03/09 - LAP COLECTOMY W COLOPROCTOST 07-17-15 - LAPAROSCOPIC CHOLEYCYSTECTOMY 08/12/2013 - PAST SURGICAL HISTORY OF 1993 and 1994 calcium deposits removed left ankle - REMOVAL MISSY VAD W PORT/PUMP Right 12/18/2016 Removal right IJ port - S PACK PHACO 30K 7524-8237-93 Left - SKIN BX, 1 LESION 07/30/14 [...] Medications Medication Sig Dispense Refill - Ipratropium Wynona (ATROVENT) 0.03 % nasal spray Us e [...] The above note was partially created usi [employer] dictation recognition software. A reasonable attempt has been made to correct any errors. Referring Provider: SELF [200] Allergies As of Date: 01/01/2020 Noted Allergy Reaction LEVAQUIN (LEVOFLOXACIN) 08/14/2005 7 - Swelling KALEIGH INHIBITORS 09/03/2010 3 - Cough Date Reviewed: 01/01/2020 Reviewed by: Alexis Craft - Fully Assessed Reason for Visit: Heart Problem [54] Primary Visit Diagnosis:NSTEMI (non-ST elevated myocar dial infarction) ([facility]) [I21.4] Other Visit Diagnosis:Paroxysmal atrial fibrillation ([facility]) [ I48.0] Order(s):ECG COMPLETE [ECG01] Order #: [id number] FUTURE EKG [[id number]] Order #: [id number] Prescriptions as of 01/01/2020 Sig: IPRATROPIUM BROMIDE [...] ankle [M10.9] 06/18/2015 Coronary artery disease involving [place] watson*06/18/2015 S/P CABG (coronary artery bypass graft) [...] on 2019-12-12 EDER Telephone (QUINTON) Normal 12-12-2019 [facility] DARRELL CORONEL ([id number]) 1940 [facility] Date Time Provider Department (47061) 12/12/19 [facility] HERNÁNDEZ During your visit today, we recorded the following informati on about you: Kellie Gonzalez, RN, RN 12/12/2019 9:23 AM Signed Pt called to see if he can be cleared for a MRI d/t trejo ving a hematoma on his leg. Pt has a [place] pacem awilda/mary jo. Called pt back and left message to call back. Allergies As of Date: 12/12/2019 Noted Allergy Reaction LEVAQUIN (LEVOFLOXACIN) 08/14/2005 7 - Swelling KALEIGH INHIBITORS 09/03/2010 3 - Cough Date Reviewed: 08/16/2019 Reviewed by: Rachelle ([facility]) [place] - Fully Assessed Reason for Visit: Question [4925] Cmt: MRI Prescriptions as of 12/12/2019 Sig: [...] ankle [M10.9] 06/18/2015 Coronary artery disease involving [place] watson*06/18/2015 S/P CABG (coronary artery bypass graft) [...] Encounter Status:Closed by KELLIE GONZALEZ on [facility]/12/[facility] Normal 12-12-2019 [facility] DARRELL CORONEL ([id number]) 1940 M (05931) Date Time Provider Department 12/12/19 RACHELLE AGUILAR ([facility]) [facility] During your visit today, we recorded the following informati on about you: Rachelle Aguilar APRN.ASSOCIATE PROFESSOR OF HISTORY 12/12/2019 9:37 AM Signed 9:36 AM Rec'd [...] questions or concerns . Rachelle Aguilar DNP, ROOFING SUBCONTRACTOR, NP_C Allergies As of Date: 12/12/2019 Noted Allergy Reaction LEVAQUIN (LEVOFLOXACIN) 08/14/2005 7 - Swelling KALEIGH INHIBITORS 09/03/2010 3 - Cough Date Reviewed: 08/16/2019 [facility] [place] - Fully Assessed Reason for Visit: Question [7670] Prescriptions as of 12/12/2019 Sig: IPRATROPIUM BROMIDE [...] ankle [M10.9] 06/18/2015 Coronary artery disease involving [place] watson*06/18/2015 S/P CABG (coronary artery bypass graft) [...] 12/12/19 progress on 2019-08 PROGRESS HNO ID: [id number] Normal 08-16-2019 [facility] Author: Rachelle Aguilar ([id number]) Service: ? Author Type: Nurse Practitioner Type: Progress Notes Filed: 08/16/2019 12:47 PM Note Text: Heart and Vascular [place] [facility] Heart Failure Clinic OUTPATIENT VISIT DATE August [...] at this time. [place] with his and his dog. Has 5 sons. Advanced directives h ave been completed and are scanned into [employer]. SOB: No Fatigue: No Orthopnea:No PND: No [...] FIVE 08/27/05 - COLONOSCOP W/ OR W/O [facility] SPEC 06-25-15 - COLONS W/REM POLYP HT BX 09/04/2016 - ICD (ICD) 03/19/06 and 04/03/09 - LAP COLECTOMY W COLOPROCTOST 07-17-15 - LAPAROSCOPIC CHOLEYCYSTECTOMY 08/12/2013 - PAST SURGICAL HISTORY OF 1993 and 1994 calcium deposits removed left ankle - REMOVAL MISSY VAD W PORT/PUMP Right 12/18/2016 Removal right IJ port - S PACK PHACO 30K [id number] Left - SKIN BX, 1 LESION 07/30/14 [...] will, both of which are scanned into [employer].. 7. Provided pt with all contact information [...] PM cnov on 2019-08-16 CNOV Office Visit ([facility]) Normal 08-16-19 [facility] [facility] DAR[facility]LL [facility]ON[facility] ([id number]) 1940 M ([id number]) Date Time Provider Department 08/16/19 11:00 AM RACHELLE AGUILAR (SKIP) [facility] During your visit today, we recorded the following informati on about you: Pulse Blood pressure Weight 54/minute 125/64 76.8 kg Rachelle Aguilar APRN.CNP 08/16/2019 12:47 PM Signed Heart and Vascular [place] [facility] OUTPATIENT VISIT DATE August [...] at this time. [place] with his and his dog. Has 5 sons. Advanced direc tives have been completed and are scanned into [employer]. SOB: No Fatigue: No Orthopnea:No PND: No [...] IJ port - S PACK PHACO 30K [id number] Left - SKIN BX, 1 LESION 07/30/14 [...] will, both of which are scanned into [employer].. 7. Provided pt with all contact information [...] or concern, you can call me at . Referring Provider: SPRING HERNÁNDEZ [[id number]] Allergies As of Date: 08/16/2019 Noted Allergy Reaction LEVAQUIN (LEVOFLOXACIN) 08/14/2005 7 - Swelling KALEIGH INHIBITORS 09/03/2010 3 - Cough Date Reviewed: 08/16/2019 Reviewed by: Rachelle (Skip) Zenobia - Fully Assessed Reason for Visit: New Patient [172] Establish Care [42] Primary Visit Diagnosis:Chronic systolic heart failure (HCC) [I50.22] Other Visit Diagnoses:Coronary artery disease involving carmelo ve coronary artery of [place] heart without angina pectoris [I25.10] Essential hypertension, benign [I10] Hyperlipidemia, unspecified hyperlipidemia type [E78.5] PAF (paroxysmal atrial fibrillation) ([facility]) [I48.0] ICD (implantable cardioverter-defibrillator) in place [Z95.810] Order(s):Ipratropium Wynona (ATROVENT) 0.03 % n jasvir sprayUse 2 [...] ankle [M10.9] 06/18/2015 Coronary artery disease involving [place] watson*06/18/2015 S/P CABG (coronary artery bypass graft) [...] or concern, you can call me at [phone]. Prescriptions ordered this encounter Disp Refills Start End IPRATROPIUM BROMIDE 0.03 % NASAL SPR* 08/16/2019 Class: Med Update Route: NASAL Sig: Use 2 Sprays in the nose once daily. Level of Service: NEW PATIENT VISIT LEVEL 3 [[id number]] Encounter Status:Closed by RACHELLE AGUILAR CNP on 08/16/19 progress on 2019-07 PROGRESS HNO ID: [id number] Normal 07-27-2019 [facility] Author: Kristie Guerin ([id number]) Service: ? Author Type: Nurse Practitioner Type: [...] cycles completed 01/08/2016. Patient pr esented to [facility] on 01/15/2016 with complaints of co ugh, increasing shortness of breath and wheezing. Found to have a n elevation of troponin and was admitted and started on Lasix. He was then transferred to the main [facility]. He underwent a left heart catheterization which [...] [place]orga. Will have report sc anned into [facility]. - ?CT chest/abd/pelvis due in one year. - ?Follow up in 6?months with CEA-pending today's CEA. - ?Pt. aware to call office with any questions/concerns. ? ? The patient indicates understanding of these issues and agre es with the plan. ? ? ? CLIF Acuna on 2019-07-12 6 GÓMEZOVS Visit (SP) Office (NASEEM) Normal [facility] TONEYDARRELL HERNANDEZ Sascha ([id number]) 1940 M [facility] Date Time Provider Department ([id number]) 07/27/19 9:30 AM KRISTIE HITCHCOCK During your [...] x9 cycles completed . Patient presented to [facility] on 01/15/2016 with complaints o f cough, increasing shortness of breath and wheezing. Foun d to have an elevation of troponin and was admitted and started on Lasix. He was then transferred to the [facility]. He underwent a left heart catheterization [...] [place]orga. Will have rep ort scanned into [facility]. - ?CT chest/abd/pelvis due in one year. - ?Follow up in 6?months with CEA-pending today's CEA. - ?Pt. aware to call office with any questions/concerns. ? ? The patient indicates understanding of these iss ues and agrees with the plan. ? ? ? Kristie Hitchcock, ROOFING SUBCONTRACTOR.ASSOCIATE PROFESSOR OF HISTORY Referring Provider: KRISTIE HITCHCOCK [[id number]] Allergies As of Date: 07/27/2019 Noted Allergy [...] ankle [M10.9] 06/18/2015 Coronary artery disease involving [place]son*06/18/2015 S/P CABG (coronary artery bypass graft) [...] [S70.02XA] 09/28/2018 Encounter Status:Closed by KRISTIE HITCHCOCK ASSOCIATE PROFESSOR OF HISTORY on 07/27/19 cea on 2019-07-27 CEA 1.3 0.0-2.9 ng/mL Normal 07-27-2019 [facility] ([id number]) Comment: Result Comment: Test analyze d by the Wilian DxI method. Performed By: #### CEA #### [facility] [address] [id number] progress on 2019-07 PROGRESS HNO ID: [id number] Normal 07-18-2019 [facility] Author: Juana ([facility]) Ed Ferrara [facility] ([id number]) Service: ? Author Type: Farm Truck Driver Type: Progress Notes Filed: 07/18/2019 12:17 PM [...] * *Final Report* * * Normal 2019 [facility] IVCON DATE OF EXAM: Jul 18 2019 11:56AM [facility] ([id number]) [facility] 0539 - CT CHEST W IVCON / [...] lung nodules. Stable borderline RIGHT hilar adenopathy. Lowerator Operator: PSCB Transcribe Date/Time: Jul 18 2019 1:49P Dictated by : JORDAN MCKEON MD This examination was interpreted and the report reviewed and electronically signed by: JORDAN MCKEON MD on Jul 18 2019 1:58PM EST [id number] ct abd/pel w ivcon on 2019-07-18 CT ABD/PEL W * * *Final Report* * * Normal [facility] IVCON DATE OF EXAM: Jul 18 2019 11:56AM [facility] ([id number]) [facility] 0530 - CT ABD/PEL W IVCON / [...] pelvis. Stable LEFT adrenal nodule likely adenoma. Lowerator Operator: KRISTEN Transcribe Date/Time: Jul 18 2019 1:39P Dictated by : JORDAN MCKEON MD This examination was interpreted and the report reviewed and electronically signed by: JORDAN MCKEON MD on Jul 18 2019 1:46PM EST [id number] creatinine on 07-18 Creatinine [Mass/Vol] 0.85 0.73-1.22 mg/dL Normal 07-18-19 [facility] ([id number]) Creatinine [Mass/Vol] >60 Normal 07-18-19 [facility] ([id number]) Comment: Result Comment: eGFR (Estima obed GFR) [...] GFR. progress on 2019-06 PROGRESS HNO ID: [id number] Normal 07-03-2019 [facility] Author: Spring Hernández, [facility] ([id number]) Service: ? Author Type: Physician Type: Progress Notes Filed: 07/03/2019 12:47 PM Note Text: [facility] SECTION OF [facility] CARDIOLOGY [facility] OUTPATIENT VISIT DATE July 03, 2019 PRIMARY CARE PHYSICIAN: Van Barfeild MD ([facility]) [address] [place] [address] HISTORY OF PRESENT ILLNESS: Mr. Coronel is [...] IJ port - S PACK PHACO 30K [id number] Left - SKIN BX, 1 LESION 07/30/14 [...] DO, FACC, FAC Clinical and Preventive Cardiology [facility] cnov on 2019-07-03 CNOV Office Visit (QUINTON) Normal 07-03-20 [facility] DARRELL CORONEL Sascha ([id number]) 1940 M [facility] Date Time Provider Department ([id number]) 07/03/19 11:40 AM SPRING HERNÁNDEZ During your visit today, we recorded the following informati on about you: Pulse Blood pressure Weight Height 57/minute 112/56 77.1 kg 1.588 m Spring Hernández DO, DO 07/03/2019 12:47 PM Signed [facility] SECTION OF [facility] C[facility]IOLOGY [facility] OUTPATIENT VISIT DATE July 03, 2019 PRIMARY CARE PHYSICIAN: Van Barfield MD ([facility]) [address] [place] [address] HISTORY OF PRESENT ILLNESS: Mr. Coronel is [...] FIVE 08/27/05 - COLONOSCOP W/ OR W/O [facility] SPEC 06-25-15 - COLONS W/REM POLYP HT BX 09/04/2016 - ICD (ICD) 03/19/06 and 04/03/09 - LAP COLECTOMY W COLOPROCTOST 07-17-15 - LAPAROSCOPIC CHOLEYCYSTECTOMY 08/12/2013 - PAST SURGICAL HISTORY OF 1993 and 1994 calcium deposits removed left ankle - REMOVAL MISSY VAD W PORT/PUMP Right 12/18/2016 Removal right IJ port - S PACK PHACO 30K [id number] Left - SKIN BX, 1 LESION 07/30/14 [...] by mouth twice daily. Spring Hernández DO, [facility] Clinical and Preventive Cardiology [facility] Referring Provider: SPRING HERNÁNDEZ [[id number]] Allergies As of Date: 07/03/2019 Noted Allergy Reaction LEVAQUIN (LEVOFLOXACIN) 08/14/2005 7 - Swelling [place] INHIBITORS 09/03/2010 3 - Cough Date Reviewed: 07/03/2019 Reviewed by: Spring Hernández DO - Fully Assessed Reason for Visit: CARD Follow Up 6 Month [1231] Cmt: no issues Primary Visit Diagnosis:Coronary artery disease involving na tive coronary artery of [place] heart without angina pectoris [I25.10] Other Visit [...] tabletRfl: 3 CONSULT TO CHRONIC CARE (EU,FV,HL,LK,SANDRA,ME,MM,SP) [[id number]] Order #: [id number]: 1 Prescriptions as of 07/03/2019 Sig: PRAVASTATIN [...] ankle [M10.9] 06/18/2015 Coronary artery disease involving [place]son*06/18/2015 S/P CABG (coronary artery bypass graft) [...] Refill Normal 06-17-2018 [facility] (AGCARDWST) DARRELL CORONEL ([id number]) 1940 M Date Time Provider Rmrdkzgahl01/7/18 LEVAR GUSMAN AGCARDWST During your Medical visit today, we recorded the following information about you:Allergies As of Date: 06/17/2018 Noted Allergy Center ReactionLEVAQUIN (LEVOFLOXAC IN) 08/14/2005 7 - SwellingACE INHIBITORS 09/03/2010 3 - CoughDate Reviewed: ([id number]) 12/29/2017Reviewed by: Abby Chicas RN - Fully [...] [M10.9] INVALID FOR* Coronary artery disease involving [place]*INVALID FOR* S /P CABG (coronary artery [...] [facility] Sports (procedure) Medicine and Orthopaedi [facility] ([id number]) Tobacco smoking Never Invalid 03-19-2017 - [facility] Medical status NHIS Interpretation Code 03-19-20 17 [facility] ([id number]) Tobacco use CPHS Never Invalid 03-19-2017 - [facility] smoker Interpretation Code 03-19-2017 [facility] (63081) Vital Signs Vital Sign Description Value / Unit Date Location The following section is limited to 5 en tries per type and includes entries from the following time range: 20200417 - 7. Heart rate 0.5 ms 04-17-2020 [facility] ([id number]) Encounters Date Type Reason Provider Location 12-27-2017 Ambulatory LEVAR GUSMAN Facility:[facility] 04-26-2017 - [facility] 04-26-2017 disease of [place] [facility] DICAL coronary artery without CENT ER angina pectoris 04-16-2020 - Follow-up Angelito Hamilton c 04-16-2020 encounter 04-16-2020 ICD Remote F/U Angelito Nguyen Guerin Cli beryl Department 04-16-2020 - Patient encounter [facility] Provider [facility] 04-16-2020 procedure 04-16-2020 Results Only [facility] Provider [facility] Procedures Procedure Name Date Provider Location CARDIAC DATA AND REPORT 04-16-2020 [facility] ([id number]) ICD REMOTE CHECK 04-16-2020 Angelito Nguyen Gueringregg Hamilton c ([id number]) Plan of Treatment Plan Description Date Location LIPID SCREEN LIPID SCREEN 12-23-2022 - [facility] 12-23-2022 ([id number]) DIABETES SCREEN DIABETES SCREEN 06-29-2021 - [facility] 06-29-2021 ([id number]) BP CONTROLLED (<130/80) BP CONTROLLED (<130/80) 01-28-2021 - [facility] 01-28-2021 ([id number]) INFLUENZA (#1) INFLUENZA (#1) 2020 - [facility] 03-12-2020 ([id number]) LDL CHOLESTEROL LDL CHOLESTEROL 12-23-2018 - [facility] 12-23-2018 (40212) COLORECTAL CANCER COLORECTAL CANCER 09-04-2017 - [facility] inic SCREENING,SEE MODIFIER SCREENING,SEE MODIFIER 09-04-2017 ([id number]) Appointment Appointment 03-19-2017 - [facility] er 03-19-2017 Sports Medicine and Orthopaedics ([phone]) ADVANCE DIRECTIVE ADVANCE DIRECTIVE 10-21-2016 - [facility] inic DISCUSSION DISCUSSION 10-21-2016 (84172) SHINGRIX VACCINE (1 of SHINGRIX VACCINE (1 of 1991 - [facility] 2) 2) 1991 (67572) DTAP,TDAP,TD (1 - Tdap) DTAP,TDAP,TD (1 - Tdap) 02-28-1960 - [facility] 02-28-1960 (07505) ANNUAL PCP TEAM CHRONIC ANNUAL PCP TEAM CHRONIC 1959 - [facility] DISEASE VISIT DISEASE VISIT 1959 (22443) no information [facility] ([id number]) no information [facility] er Sports Medicine and Orthopaedics (44 691) Immunizations Vaccine Notes Status Date Location Influenza Vaccine, influenza virus (completed) 04-03-2009 - [facility] Split-Non Spec vaccine, unspecified 04-03-2009 (4419 5) formulation Pneumovax pneumococcal (completed) [facility] polys[facility], 04-17-2015 (441 95) 23 valent TD Adult tetanus and diphtheria (completed) 01-20-2011 - [facility] toxoids, adsorbed, 01-20-2011 (73421) preservative free, for adult use (2 Lf of tetanus toxoid and 2 Lf of diphtheria toxoid) Payers Payer Name Policy Number Location [employer]ET[employer] MEDICARE [id number] [facility] (44 195) AETNA MEDICARE PPO [id number] [facility] ([id number]) The following information is from the original human readable contentNo Payer Records FoundNo Payer Records FoundNo Payer Records FoundNo Payer Records FoundNo Payer Records Found Social History Type Social History Date Location Description Tobacco smoking status Never smoker 01-29-2020 - [facility] NHIS 01-29-2020 (18617) Tobacco use and Never used 01-29-2020 - [facility] exposure 01-29-2020 (21175) Alcohol intake Current non-drinker of 01-29-[address] [facility] alcohol (finding) 01-29-2020 (59640) Sex Assigned At Male [facility] ([id number]) The following information is from the original human readable contentNo Social History Records FoundNo Social History Records FoundNo Social History Records FoundNo Social History Records FoundNo Social History Records FoundNo Social History Records FoundNo Social History Records Found Medical Equipment Equipment Code (if Equipment Original Equipment Procedure Code D ates provided) Text (if provided) Identifier (if (if provided) provided) Urm-Oc-B-Kind Implant [id number] 2011 - [id number] Gxp-Zt-T-Kind Implant [id number] 2011 - [id number] Shell Actb 58mm Prim [id number] 012 Sb Hmsphr - [id number] Head Fem -4mm 28mm [id number]_[facility] 2 Cocr Lfit V - [id number] Stem Fem Nk Acld Tmzf [id number]_[facility] 2011 3 Hip - [id number] Port Powerport Mri [id number] 6 6fr Polyurethane Implantable Infusion Slim Catheter - [id number] Summary Purpose Family History No Family History Records FoundNo Family History Records FoundNo Family History Records FoundNo Family History Records Found Advance Directives Documents on File Type Date Recorded Patient Torpedo Man Explanati on Advance Directive(s) Advance Directive(s) 10/22/2011 [...] BE BASED ON THE PRIMARY CLINICAL RECORDS. [facility] provides no warranty or guarantee of the accuracy or completeness of information in this document. UNRECOGNIZED CONTENT PROVIDED BELOW FOR UNRECOGNIZED SECTION No Status Records FoundNo Status Records FoundNo Status Records FoundNo Status Records Found UNRECOGNIZED CONTENT PROVIDED BELOW FOR UNRECOGNIZED SECTION INFORMATION SOURCE DATE CREATED AUTHOR AUTHOR'S ORGANIZATIO N 01/04/2018 [facility] DATE CREATED AUTHOR AUTHOR'S ORGANIZATIO N 06/21/2018 [facility] DATE CREATED AUTHOR AUTHOR'S ORGANIZATIO N 12/12/2019 [facility] DATE CREATED AUTHOR AUTHOR'S ORGANIZATIO N 02/03/2020 [facility] UNRECOGNIZED CONTENT PROVIDED BELOW FOR UNRECOGNIZED SECTION Source Comments In the event this information is protected by the Federal Confidentiality of Alcohol and Drug Abuse Patient Records regulations: The Federal rules restrict any use of the information to criminally investigate or prosecute any alcohol or drug abuse patient.[facility] the event this information is protected by the Federal Confidentiality of Alcohol and Drug Abuse Patient Records regulations: The Federal rules restrict any use of the information to criminally investigate or prosecute any alcohol or drug abuse patient.[facility] UNRECOGNIZED CONTENT PROVIDED BELOW FOR UNRECOGNIZED SECTION Procedure Notes Angelito Nguyen MD - 04/17/2020 2:05 PM EDTAssociated Order(s): CARDIAC DATA AND REPORTDUAL LEAD ICD REMOTE EVALUATION: PRESENTING EGM: /RN PROCEDURE BATTERY STATUS: Normal with no significant depletion, [...]
--- OUTSIDE RECORDS SUMMARY | 2020-04-23 15:44 | XMS RPT_ITS | CCD ---
:1940 External Reference #:[id number] Author Organization [facility] Care Team Providers Name Role Phone Julio Cesar Cesilia Unavailable Sascha Mckeon Unavailable NASEEM Unavailable Unavailable IMCA Unavailable Unavailable NASEEM Unavailable Unavailable NASEEM Unavailable Unavailable Marc Barfield Primary Care Provider aPtrick Unavailable Allergies Reported Allergen Reaction(s) Severity Date of Onset Location Angiotensin Cough 09-03-2010 - [facility] Converting Enzyme System Rep ository ([place]) Inhibitors Translations: [ KALEIGH INHIBITORS] levoFLOXacin Moderate, 07-08-2011 - [facility] ter Moderate Sports Medicine and Orthopaedics (2 4198) levoFLOXacin Swelling High 08-14-2005 - [facility] Translations: [ System Repos itory LEVOFLOXACIN] Medications Medication Name Sig Date Prescriber Location Ascorbic Acid ascorbic acid, vitamin C, Ccf Provider [facility] (09646) (VITAMIN C) 500 mg tablet Take 500 mg by mouth once daily. 0 Active Comment: Take 500 mg by mouth once da kristofer. aspirin BABY ASPIRIN 81 MG CHEW 07-08-2011 [facility] Sports ASPIRIN [id number] Medicine and Orthopaedics Dianne Alaniz (53149) aspirin 81 mg chewable tablet Ccf Provider [facility] Sports Medicine Take 81 mg by mouth once daily. 0 and Orthopaedics (36967) Active Comment: Take 81 mg by mouth once torin ly. carvedilol carvedilol (COREG) 25 07-03-2019 [place] Shrestha [facility] mg tablet Take 1 Vito Sports Medi cine and tablet by mouth twice Orthop aedics (62590) daily. 180 tablet 3 07/03/2019 Active COREG 25 MG TABS 07-08-2011 [facility] Medicine CARVEDILOL [id number] Dianne luis Orthopaedics (83682) Katty Comment: Take 1 tablet by mouth twice daily. clonazePAM CLONAZEPAM 0.5 MG TABS 07-08-2011 [facility] Sports CLONAZEPAM Medici ne and Orthopaedics [phone] Dianne Alaniz ( 06920) Comment: Take 0.5 mg by mouth three t imes daily. digoxin digoxin (LANOXIN) 125 07-03-2019 [place] Shrestha [facility] mcg (0.125 mg) tablet Vito Sports Medicine and Take 1 tablet by mouth Ortho paedics (50843) once daily. 90 tablet 3 07/03/2019 Active DIGOXIN TABS DIGOXIN TABS 07-08-2011 [facility] [id number] Dianne Alaniz and O rthopaedics (85769) DIGOXIN TABS DIGOXIN TABS 07-08-2011 [facility] [phone] Dianne Alaniz and O rthopaedics (22698) DIGOXIN TABS DIGOXIN TABS 07-08-2011 [facility] [id number] Dianne Alaniz and O rthopaedics (20139) Comment: Take 1 tablet by mouth once daily. fluticasone FLONASE 50 MCG/ACT SUSP 07-08-2011 - 03-19-2017 [facility] Sports Medicine and FLUTICASONE PROPIONATE Ortho paedics (07793) [phone] Alyson Harrell FLONASE 50 MCG/ACT SUSP 07-08-2011 [facility] Sports FLUTICASONE Medicine and Orthopaedics PROPIONATE [id number] Dianne Buckner (4 4691) Katty FLONASE 50 MCG/ACT SUSP 07-08-2011 - 03-19-2017 [facility] Sports Medicine a nd Orthopaedics FLUTICASONE PROPIONATE (70492) [phone] Alyson Harrell FLONASE 50 MCG/ACT SUSP 07-08-2011 [facility] Sports FLUTICASONE Medicine and Orthopaedics PROPIONATE [phone] Dianne M (4 4691) Stuartagley FLONASE 50 MCG/ACT SUSP 07-08-2011 [facility] Sports FLUTICASONE Medicine and Orthopaedics PROPIONATE [phone] Dianne M (4 4691) Stuartaglvicenta furosemide furosemide (LASIX) 40 07-03-2019 [facility] mg tablet Take 1 [facility] cine and tablet by mouth once Orthopa edics (34009) daily. 90 tablet 3 07/03/2019 Active FUROSEMIDE TABS 07-08-2011 [facility] FUROSEMIDE TABS [phone] Dianne M and Orthopaedics (44626) Yeagley FUROSEMIDE TABS 07-08-2011 [facility] FUROSEMIDE TABS [id number] Dianne M and Orthopaedics (10254) Yeagley FUROSEMIDE TABS 07-08-2011 [facility] FUROSEMIDE TABS [phone] Dianne M and Orthopaedics (14412) Katty Comment: Take 1 tablet by mouth once daily. Ipratropium Ipratropium Cornell 08-16-2019 Rachelle ([facility]) [facility] (ATROVENT) 0.03 % [facility] (43585) nasal spray Use 2 Sprays in the nose once daily. 0 08/16/2019 Active Comment: Use 2 Sprays in the nose onc e daily. losartan losartan (COZAAR) 100 07-03-2019 [facility] mg tablet Take 1 [facility] and tablet by mouth once Orthopa edics (97748) daily. 90 tablet 3 07/03/2019 Active COZAAR 50 MG TABS 07-08-2011 [facility] Medicine LOSARTAN POTASSIUM [phone] Dianne and Orthopaedics (55913) Sita Alaniz Comment: Take 1 tablet by mouth once daily. multivitamin tablet multivitamin tablet Take 1 Ccf Pro vider [facility] tablet by mouth once daily. (50424) 0 Active multivitamin tablet Take 1 tablet by mouth Ccf P rofadia [facility] (69912) once daily. 0 Active Comment: Take 1 tablet by mouth once daily. niacin NIACIN 500 MG TABS 07-08-2011 [facility] NIACIN Sports Med icine and [phone] Dianne Buckner Orthopaed [facility] (00986) Yeagley Potassium Chloride potassium chloride 07-03-2019 [place] Shrestha [facility] (KLOR-CON 10) 10 mEq Vito (04485) tablet Indications: Essential hypertension Take 1 tablet by mouth once daily. 90 tablet 3 07/03/2019 Active Comment: Take 1 tablet by mouth once daily. tamsulosin tamsulosin ER (FLOMAX) 0.4 mg Take Ccf Pr [facility] (75817) 0.4 mg by mouth daily at bedtime. 0 Active Comment: Take 0.4 mg by mouth daily a t bedtime. warfarin COUMADIN 3 MG TABS 03-19-2017 [facility] Sports WARFARIN SODIUM [id number] Medicine and Orthopaedics Alyson Harrell (48215 ) Problems Active Problems Category Problem Name Status Date Location Acute cerebrovascular Cerebrovascular Active 06-18-2015 - [facility] disease accident (81872) Acute myocardial Myocardial infarction Active 01-15-2016 - [facility] infarction (47523) Cancer of colon Malignant tumor of Active 07-02-2015 - [facility] colon (67977) Cardiac dysrhythmias Atrial fibrillation Active 06-18-2015 - [facility] (58795) Conduction disorders Automatic implantable Active 02-28-2008 - [facility] cardiac defibrillator (80485 ) in situ Coronary Atherosclerotic heart Active 06-18-2015 - [facility] atherosclerosis and disease of pa[place]shoshone Sys tem (29495) other heart disease coronary artery without angina pectoris Disorders of lipid Dyslipidemia Active 11-16-2008 - [facility] metabolism (65069) Essential hypertension Essential hypertension Active 07-01-[address] [place] [address] (50891) Gout and other crystal Gout Active 07-01-2005 - [facility] arthropathies (68088) Heart valve disorders Mitral valve disorder Active 07-01-2005 - [facility] (25292) Osteoarthritis Degenerative joint Active 07-01-2005 - [facility] disease of ankle AND/OR Spor ts Medicine and foot Orthopaedics (4 4322) Other and ill-defined Acute ill-defined Active 07-01-2005 - 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 hemorrhage (63643) Other connective tissue Arthrodesis status Completed 03-19-2017 - [facility] disease Sports Medicine and Orthopaedics (4 4691) Other non-traumatic Sacroiliac disorder Completed 08-19-2018 - [facility] joint disorders (89833) Other non-traumatic Ankle pain Completed 03-19-2017 - [facility] joint disorders Sports Medic ine and Orthopaedics (4 4691) Other non-traumatic Hip pain Completed 11-20-2011 - [facility] joint disorders (48250) Pneumonia (except that Community acquired Completed 01-17-2016 - [facility] caused by tuberculosis pneumonia (4419 5) or sexually transmitted disease) Residual codes; Pain in buttock Completed 08-19-2018 - [facility] unclassified (59790) Superficial injury; Contusion of left Completed 09-28-2018 - [facility] contusion hip, initial (14417) encounter Results Result Name Value Range Unit Interpretation Flag Date Location No panel information on 2020-04-17 AV Delay Adaptive Paced 350 ms 2019 [facility] Minimum (ms) (52575) AV Delay Adaptive Sensed 325 ms 04-17 [facility] Minimum (ms) (26354) Battery Voltage 2.96 V 04-17-2020 [facility] (67898) BLANK _ 04-17-2020 [facility] (26293) Danny RA Pacing 2 V 04-17-2020 [facility] Amplitude (volts) (4 4195) Danny RA Pacing Polarity BI 04-17 [facility] (13073) Danny RA Sensing 0.5 mV 04-17-2020 [facility] Amplitude (mvolts) ( 99308) Danny RA Sensing BI 04-17-2020 [facility] Polarity (74158) Danny RV Pacing 2.5 V 04-17-2020 [facility] Amplitude (volts) (4 4195) Danny RV Pacing Polarity BI 04-17 [facility] (75900) Danny RV Sensing 0.5 mV 04-17-2020 [facility] Amplitude (mvolts) ( 72388) Danny RV Sensing BI 04-17-2020 [facility] Polarity (17311) Detection Configuration 1 - Zone 2019 [facility] (Vent) (39825) ICD FastVT DISABLED 04-17-2020 [facility] DetectionStatus (441 95) ICD-AMS EPISODES 180 {beats}/min 04-17-2020 [facility] (97326) ICD-ATP Episodes (Vent) 0 2019 [facility] (51374) ICD-Device Mfg STJ 04-17-2020 [facility] (64426) ICD-LEADIMPEDANCEATRIAL 290 ohm 2019 [facility] (52945) ICD-Percent Pacing 1.6 % 04-17-2020 [facility] (Atrial) (14523) ICD-Percent Pacing 46 % 04-17-2020 [facility] (Vent) (66521) ICD-Shocks Aborted 0 04-17-2020 [facility] (Vent) (69179) TDH-TVUXXP-OTNTMEUYV 0 0 [facility] (62738) ICD-SHOCKSABORTED 0 04-17-[address] [facility] (59083) ICD-SHOCKSDELIVEREDVENTR 0 04-17 [facility] ICULAR (64973) Implant Date 02/09/2017 04-17-2020 [facility] (05641) Implant Date 04/02/2009 04-17-2020 [facility] (63711) Lead Impedance (RV) 390 ohm 04-17-2020 [facility] (76730) Lead Impedance High 45 ohm 04-17-2020 [facility] Voltage (54711) [facility] . [facility] 04-17-2020 [facility] (32836) Lead2 Mfg . [facility] 04-17-2020 [facility] (59382) Location RV 04-17-2020 [facility] (16176) Location RA 04-17-2020 [facility] (63336) Lower Rate (bpm) 50 {beats}/min 04-17-2020 [facility] (44743) Max Sensor Rate (bpm) 105 {beats}/min 2019 [facility] (62523) MDT_PROG_TACHY_ZONE_DETE ENABLED 04-17 [facility] CTIONS_STATUS (99250 ) Model 1699TC OptiSense 04-17-2020 [facility] (91205) Model 2357-40Q Fortify 04-17-2020 [facility] Jignesh HERBERT (70316) Model 7121Q Durata SJ4 04-17-2020 [facility] (37699) Pacing Mode DDD 04-17-2020 [facility] (23631) Serial Number [id number] 04-17-2020 [facility] (59074) Serial Number [id number] 04-17-2020 [facility] (05101) Serial Number [id number] 04-17-2020 [facility] (14867) Test Charge Energy 40 J 04-17-2020 [facility] (65921) Test Charge Time 9.1 s 04-17-2020 [facility] (66422) Therapy Status (Vent) Enabled 04-17-20 20 [facility] (52932) Thresh RA Capture 1 V 04-17-2020 [facility] Amplitude (volts) (4 2685) Thresh RA Capture 0.5 ms 04-17-2020 [facility] Duration (ms) (25173 ) Thresh RA Sensing 1.5 mV 04-17-2020 [facility] Amplitude (mvolts) ( 31947) Thresh RV Capture 1.25 V 04-17-2020 [facility] Amplitude (VOLTS) (4 4195) Thresh RV Capture 0.5 ms 04-17-2020 [facility] Duration (MS) (56709 ) Thresh RV Sensing 12 mV 04-17-2020 [facility] Amplitude (MVOLTS) ( 80816) Tracking Rate (bpm) 95 {beats}/min 04-17-20 [facility] (93045) VF Zone Detection 320 ms 04-17-2020 [facility] Interval (34096) VF Zone Therapy 0 ATP(s) + 6 04-17-2020 [facility] Configuration Shock(s) (73905 ) No panel information on 2020-04-16 [facility] (59820) progress on 2020-01 PROGRESS HNO ID: [id number] Normal 01-29-2020 [facility] Author: Kristie Hitchcock [place] ([id number]) Service: ? Author Type: Nurse Practitioner Type: [...] cycles completed 01/08/2016. Patient pr esented to [facility] on 01/15/2016 with complaints of co ugh, increasing shortness of breath and wheezing. Found to have a n elevation of troponin and was admitted and started on Lasix. He was then transferred to the [facility]. He underwent a left heart [...] necessary for today's visit. ? Kristie Hitchcock APRN.FILM WRITER ? cnovsp on 2020-01-11 0 CNOVSP Visit (SP) Office (NASEEM) Normal [place] [facility] DARRELL CORONEL ([id number]) 1940 M [place] Date Time Provider Department (04455) 01/29/20 10:30 AM KRISTIE HITCHCOCK During your visit today, we recorded the following informati on about you: Temperature Pulse Blood pressure Weight 97.7 degrees 57/minute 125/68 73.5 kg Kristie Hitchcock, MICHEL.FILM WRITER 01/29/2020 2:44 PM Signed Chief Complaint Patient [...] x9 cycles completed . Patient presented to [facility] on 01/15/2016 with complaints o f cough, increasing shortness of breath and wheezing. Amy d to have an elevation of troponin and was admitted and started on Lasix. He was then transferred to the main [facility]. He underwent a left heart [...] necessary for today's visit. ? Kristie Hitchcock APRN.FILM WRITER ? Meenu Verma LPN 01/29/2020 10:32 AM Signed Est patient. Six month OV. 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 (71122) Comment: Result Comment: Test analyze d by the Wilian DxI method. Performed By: #### CEA ####C [facility] [place], [place] [phone] progress on 2019-12 PROGRESS HNO ID: [id number] Normal 01-01-2020 [facility] Author: Alexis Craft [place] ([id number]) Service: ? Author Type: Physician Type: Progress Notes Filed: 01/01/2020 1:59 PM Note Text: Alexis Craft MD Interventional Cardiology [address] [place] [address] Chief Complaint Patient presents with: Heart Problem Cardiology follow up HISTORY OF PRESENT ILLNESS: Mr. Coronel is a 79 year old male seen today in follow-up t here are extensive cardiac history in the past history of bypass surg joby for severe three-vessel coronary artery disease in 2005 with 5 vessel b ypass graft done at the [facility] patient has severe LV syst olic [...] IJ port - S PACK PHACO 30K [id number] Left - SKIN BX, 1 LESION 07/30/14 [...] Medications Medication Sig Dispense Refill - Ipratropium Cornell (ATROVENT) 0.03 % nasal spray Use 2 [...] was partially created using a dictation recog ExSafeion software. A reasonable attempt has been made to correct any errors. ecg complete on ECG COMPLETE NAME : DARRELL CORONEL Normal [facility] PID : [id number] Kyle scales ([id number]) : 1940 Gender : Male Race : ORD : [id number] Procedure Date : Jan 01 2020 13:10:37 [...] ms QTC Calculation(Bazett) : 440 ms P [place] : 71 degrees R [place] : -33 degrees T [place] : 43 degrees Test Reason : Location : 189 : WOASC Overread By : SANDRA DANG M.D. Edited By : SANDRA DANG M.D. Referred By : ALEXIS CRAFT Acquired by : nathan canales cnov on 2020-01-01 CNOV Office Visit (STACY) Normal 01-01-[address] [place] [address] [facility] DARRELL CORONEL ([id number]) 1940 [facility] Date Time Provider Department ([id number]) 01/01/20 1:00 PM ALEXIS CRAFT During your visit today, we recorded the following informati on about you: Pulse Respiration Blood pressure Weight 62/minute 16/minute 112/62 72.6 kg Alexis Craft MD 01/01/2020 1:59 PM Signed Alexis Craft MD Interventional Cardiology [address] [place] [address] Chief Complaint Patient presents with: Heart Problem Cardiology follow up HISTORY OF PRESENT ILLNESS: Mr. Coronel is a 79 year old male seen today in follow-up there are extensive cardiac history in the past history of bypass torres rgery for severe three-vessel coronary artery disease in 2005 with 5 vessel bypass graft done at the [facility] patient has severe LV systolic dysfunction [...] FIVE 08/27/05 - COLONOSCOP W/ OR W/O [facility] SPEC 06-25-15 - COLONS W/REM POLYP HT BX 09/04/2016 - ICD (ICD) 03/19/06 and 04/03/09 - LAP COLECTOMY W COLOPROCTOST 07-17-15 - LAPAROSCOPIC CHOLEYCYSTECTOMY 08/12/2013 - PAST SURGICAL HISTORY OF 1993 and 1994 calcium deposits removed left ankle - REMOVAL MISSY VAD W PORT/PUMP Right 12/18/2016 Removal right IJ port - S PACK PHACO 30K [id number] Left - SKIN BX, 1 LESION 07/30/14 [...] Medications Medication Sig Dispense Refill - Ipratropium Cornell (ATROVENT) 0.03 % nasal spray Us e [...] The above note was partially created usi [employer] dictation recognition software. A reasonable attempt has been made to correct any errors. Referring Provider: SELF [[id number]] Allergies As of Date: 01/01/2020 Noted Allergy Reaction LEVAQUIN (LEVOFLOXACIN) 08/14/2005 7 - Swelling KALEIGH INHIBITORS 09/03/2010 3 - Cough Date Reviewed: 01/01/2020 Reviewed by: Alexis Craft - Fully Assessed Reason for Visit: Heart Problem [54] Primary Visit Diagnosis:NSTEMI (non-ST elevated myocar dial infarction) ([facility]) [I21.4] Other Visit Diagnosis:Paroxysmal atrial fibrillation ([facility]) [ I48.0] Order(s):ECG COMPLETE [ECG01] Order #: [id number] FUTURE EKG [9159649] Order #: [id number] Prescriptions as of 01/01/2020 Sig: IPRATROPIUM BROMIDE [...] ankle [M10.9] 06/18/2015 Coronary artery disease involving paiute-shoshone watson*06/18/2015 S/P CABG (coronary artery bypass graft) [...] on 2019-12-12 EDER Telephone (QUINTON) Normal 12-12-2019 [facility] DARRELL CORONEL ([id number]) 1940 [facility] Date Time Provider Department (79868) 12/12/19 [place] HERNÁNDEZ During your visit today, [...] Cough Date Reviewed: 08/16/2019 Reviewed by: Rachelle ([facility]) [place] - Fully Assessed Reason for Visit: Question [5328] Cmt: MRI Prescriptions as of 12/12/2019 Sig: [...] ankle [M10.9] 06/18/2015 Coronary artery disease involving paiute-shoshone watson*06/18/2015 S/P CABG (coronary artery bypass graft) [...] Encounter Status:Closed by KELLIE GONZALEZ [facility]12/[facility] Normal 12-12-2019 [facility] DARRELL CORONEL ([id number]) 1940 M ([id number]) Date Time Provider Department 12/12/19 RACHELLE AGUILAR ([facility]) [facility] During your visit today, we recorded the following informati on about you: Rachelle Aguilar APRN.FILM WRITER 12/12/2019 9:37 AM Signed 9:36 AM Rec'd [...] questions or concerns . Rachelle Aguilar DNP, SUPERVISOR COUNSELING AND GUIDANCE, NP_C Allergies As of Date: 12/12/2019 Noted Allergy Reaction LEVAQUIN (LEVOFLOXACIN) 08/14/2005 7 - Swelling KALEIGH INHIBITORS 09/03/2010 3 - Cough Date Reviewed: 08/16/2019 [facility] [place] - Fully Assessed Reason for Visit: Question [8288] Prescriptions as of 12/12/2019 Sig: IPRATROPIUM BROMIDE [...] ankle [M10.9] 06/18/2015 Coronary artery disease involving paiute-shoshone watson*06/18/2015 S/P CABG (coronary artery bypass graft) [...] 12/12/19 progress on 2019-08 PROGRESS HNO ID: [id number] Normal 08-16-2019 [facility] Author: Rachelle Aguilar ([id number]) Service: ? Author Type: Nurse Practitioner Type: Progress Notes Filed: 08/16/2019 12:47 PM Note Text: Heart and Vascular [facility] Heart Failure Clinic OUTPATIENT VISIT DATE [...] at this time. [place] with his and his dog. Has 5 sons. Advanced directives h ave been completed and are scanned into [employer]. SOB: No Fatigue: No Orthopnea:No PND: No [...] FIVE 08/27/05 - COLONOSCOP W/ OR W/O [facility] SPEC 06-25-15 - COLONS W/REM POLYP HT BX 09/04/2016 - ICD (ICD) 03/19/06 and 04/03/09 - LAP COLECTOMY W COLOPROCTOST 07-17-15 - LAPAROSCOPIC CHOLEYCYSTECTOMY 08/12/2013 - PAST SURGICAL HISTORY OF 1993 and 1994 calcium deposits removed left ankle - REMOVAL MISSY VAD W PORT/PUMP Right 12/18/2016 Removal right IJ port - S PACK PHACO 30K [id number] Left - SKIN BX, 1 LESION 07/30/14 [...] will, both of which are scanned into [employer].. 7. Provided pt with all contact information [...] PM cnov on 2019-08-16 CNOV Office Visit ([facility]) Normal 08-16-19 [facility] DARRELL CORONEL ([id number]) 1940 M ([id number]) Date Time Provider Department 08/16/19 11:00 AM RACHELLE AGUILAR (SKIP) [facility] During your visit today, we recorded the following informati on about you: Pulse Blood pressure Weight 54/minute 125/64 76.8 kg Rachelle Aguilar APRN.CNP 08/16/2019 12:47 PM Signed Heart and Vascular [facility] Heart Failure Clinic OUTPATIENT VISIT DATE [...] at this time. He lives [place] with his and his dog. Has 5 sons. Advanced direc tives have been completed and are scanned into [employer]. SOB: No Fatigue: No Orthopnea:No PND: No [...] IJ port - S PACK PHACO 30K 7047-2206-25 Left - SKIN BX, 1 LESION 07/30/14 [...] will, both of which are scanned into [employer].. 7. Provided pt with all contact information [...] or concern, you can call me at [phone]. Referring Provider: SPRING HERNÁNDEZ [[id number]] Allergies As of Date: 08/16/2019 Noted Allergy Reaction LEVAQUIN (LEVOFLOXACIN) 08/14/2005 7 - Swelling KALEIGH INHIBITORS 09/03/2010 3 - Cough Date Reviewed: 08/16/2019 Reviewed by: Rachelle (Skip) Zenobia - Fully Assessed Reason for Visit: New Patient [172] Establish Care [42] Primary Visit Diagnosis:Chronic systolic heart failure (HCC) [I50.22] Other Visit Diagnoses:Coronary artery disease involving carmelo ve coronary artery of paiute[place]shoshone heart without angina pectoris [I25.10] Essential hypertension, benign [I10] Hyperlipidemia, unspecified hyperlipidemia type [E78.5] PAF (paroxysmal atrial fibrillation) ([facility]) [I48.0] ICD (implantable cardioverter-defibrillator) in place [Z95.810] Order(s):Ipratropium Cornell (ATROVENT) 0.03 % n jasvir sprayUse 2 [...] ankle [M10.9] 06/18/2015 Coronary artery disease involving paiute-shoshone watson*06/18/2015 S/P CABG (coronary artery bypass graft) [...] or concern, you can call me at [phone]. Prescriptions ordered this encounter Disp Refills Start End IPRATROPIUM BROMIDE 0.03 % NASAL SPR* 08/16/2019 Class: Med Update Route: NASAL Sig: Use 2 Sprays in the nose once daily. Level of Service: NEW PATIENT VISIT LEVEL 3 [[id number]] Encounter Status:Closed by RACHELLE AGUILAR CNP on 08/16/19 progress on 2019-07 PROGRESS HNO ID: [id number] Normal 07-27-2019 [facility] Author: Kristie Guerin ([id number]) Service: ? Author Type: Nurse Practitioner Type: [...] cycles completed 01/08/2016. Patient pr esented to [facility] on 01/15/2016 with complaints of co ugh, increasing shortness of breath and wheezing. Found to have a n elevation of troponin and was admitted and started on Lasix. He was then transferred to the main [facility]. He underwent a left heart catheterization which [...] Will have report sc anned into [facility]. - ?CT chest/abd/pelvis due in one year. - ?Follow up in 6?months with CEA-pending today's CEA. - ?Pt. aware to call office with any questions/concerns. ? ? The patient indicates understanding of these issues and agre es with the plan. ? ? ? CLIF Acuna on 2019-07-12 6 GÓMEZOVS Visit (SP) Office (NASEEM) Normal [facility] TONEYDARRELL HERNANDEZ Sascha ([id number]) 1940 M [place] Date Time Provider Department ([id number]) 07/27/19 9:30 AM KRISTIE HITCHCOCK During your [...] x9 cycles completed . Patient presented to [facility] on 01/15/2016 with complaints o f cough, increasing shortness of breath and wheezing. Foun d to have an elevation of troponin and was admitted and started on Lasix. He was then transferred to the [facility]. He underwent a left heart [...] Will have rep ort scanned into [facility]. - ?CT chest/abd/pelvis due in one year. - ?Follow up in 6?months with CEA-pending today's CEA. - ?Pt. aware to call office with any questions/concerns. ? ? The patient indicates understanding of these iss ues and agrees with the plan. ? ? ? Kristie Hitchcock, SUPERVISOR COUNSELING AND GUIDANCE.FILM WRITER Referring Provider: KRISTIE HITCHCOCK [[id number]] Allergies As of Date: 07/27/2019 Noted Allergy [...] ankle [M10.9] 06/18/2015 Coronary artery disease involving paiute-shoshone watson*06/18/2015 S/P CABG (coronary artery bypass graft) [...] [S70.02XA] 09/28/2018 Encounter Status:Closed by KRISTIE HITCHCOCK FILM WRITER on 07/27/19 cea on 2019-07-27 CEA 1.3 0.0-2.9 ng/mL Normal 07-27-2019 [facility] ([id number]) Comment: Result Comment: Test analyze d by the Wilian DxI method. Performed By: #### CEA #### [facility] s [address] [id number] progress on 2019-07 PROGRESS HNO ID: [id number] Normal 07-18-2019 [facility] Author: Juana ([facility]) Ed Ferrara [facility] ([id number]) Service: ? Author Type: Package Collector Type: Progress Notes Filed: 07/18/2019 12:17 PM [...] * *Final Report* * * Normal 2019 [facility] IVCON DATE OF EXAM: Jul 18 2019 11:56AM [place] ([id number]) [facility] 0539 - CT CHEST W IVCON [...] lung nodules. Stable borderline RIGHT hilar adenopathy. Retail Pharmacist: PSCB Transcribe Date/Time: Jul 18 2019 1:49P Dictated by : JORDAN MCKEON MD This examination was interpreted and the report reviewed and electronically signed by: JORDAN MCKEON MD on Jul 18 2019 1:58PM EST [id number] ct abd/pel w ivcon on 2019-07-18 CT ABD/PEL W * * *Final Report* * * Normal [facility] IVCON DATE OF EXAM: Jul 18 2019 11:56AM [place] ([id number]) [facility] 0530 - CT ABD/PEL W IVCON [...] pelvis. Stable LEFT adrenal nodule likely adenoma. Retail Pharmacist: KRISTEN Transcribe Date/Time: Jul 18 2019 1:39P Dictated by : JORDAN MCKEON MD This examination was interpreted and the report reviewed and electronically signed by: JORDAN MCKEON MD on Jul 18 2019 1:46PM EST [id number] creatinine on 07-18 Creatinine [Mass/Vol] 0.85 0.73-1.22 mg/dL Normal 07-18-19 [facility] ([id number]) Creatinine [Mass/Vol] >60 Normal 07-18-19 [facility] ([id number]) Comment: Result Comment: eGFR (Estima obed GFR) [...] GFR. progress on 2019-06 PROGRESS HNO ID: [id number] Normal 07-03-2019 [facility] Author: Spring Hernández, [place] ([id number]) Service: ? Author Type: Physician Type: Progress Notes Filed: 07/03/2019 12:47 PM Note Text: [facility] SECTION OF [facility] CARDIOLOGY [facility] OUTPATIENT VISIT DATE July 03, 2019 PRIMARY CARE PHYSICIAN: Van Barfield MD ([facility]) [address] [place] [address] HISTORY OF PRESENT ILLNESS: Mr. Coronel is [...] IJ port - S PACK PHACO 30K 8533-9381-32 Left - SKIN BX, 1 LESION 07/30/14 [...] DO, FACC, FAC Clinical and Preventive Cardiology [facility] cnov on 2019-07-03 CNOV Office Visit ([place]) Normal 07-03-20 [place] DARRELL CORONEL Sascha ([id number]) 1940 M [place] Date Time Provider Department ([id number]) 07/03/19 11:40 AM SPRING HERNÁNDEZ During your visit today, we recorded the following informati on about you: Pulse Blood pressure Weight Height 57/minute 112/56 77.1 kg 1.588 m Spring Hernández DO, DO 07/03/2019 12:47 PM Signed [facility] SE[facility] C[facility]IOLOG[facility] OUTPATIENT VISIT DATE July 03, 2019 PRIMARY CARE PHYSICIAN: Van Barfield MD ([facility]) [address] [place] [address] HISTORY OF PRESENT ILLNESS: Mr. Coronel is [...] FIVE 08/27/05 - COLONOSCOP W/ OR W/O [facility] SPEC 06-25-15 - COLONS W/REM POLYP HT BX 09/04/2016 - ICD (ICD) 03/19/06 and 04/03/09 - LAP COLECTOMY W COLOPROCTOST 07-17-15 - LAPAROSCOPIC CHOLEYCYSTECTOMY 08/12/2013 - PAST SURGICAL HISTORY OF 1993 and 1994 calcium deposits removed left ankle - REMOVAL MISSY VAD W PORT/PUMP Right 12/18/2016 Removal right IJ port - S PACK PHACO 30K [id number] Left - SKIN BX, 1 LESION 07/30/14 [...] by mouth twice daily. Spring Hernández DO, [facility] Clinical and Preventive Cardiology [facility] Referring Provider: SPRING HERNÁNDEZ [[id number]] Allergies As of Date: 07/03/2019 Noted Allergy Reaction LEVAQUIN (LEVOFLOXACIN) 08/14/2005 7 - Swelling KALEIGH INHIBITORS 09/03/2010 3 - Cough Date Reviewed: 07/03/2019 Reviewed by: Spring Hernández DO - Fully Assessed Reason for Visit: CARD Follow Up 6 Month [1231] Cmt: no issues Primary Visit Diagnosis:Coronary artery disease involving na tive coronary artery of paiute-shoshone heart without angina pectoris [I25.10] Other Visit [...] tabletRfl: 3 CONSULT TO CHRONIC CARE (EU,FV,HL,LK,SANDRA,ME,MM,SP) [[id number]] Order #: [id number]: 1 Prescriptions as of 07/03/2019 Sig: PRAVASTATIN [...] ankle [M10.9] 06/18/2015 Coronary artery disease involving paiute-shoshone watson*06/18/2015 S/P CABG (coronary artery bypass graft) [...] Refill Normal 06-17-2018 [facility] (AGCARDWST) DARRELL CORONEL ([id number]) 1940 M Date Time Provider Wsnlhwmvrn74/7/18 LEVAR GUSMAN AGCARDWST During your Medical visit today, we recorded the following information about you:Allergies As of Date: 06/17/2018 Noted Allergy Center ReactionLEVAQUIN (LEVOFLOXAC IN) 08/14/2005 7 - SwellingACE INHIBITORS 09/03/2010 3 - CoughDate Reviewed: ([id number]) 12/29/2017Reviewed by: Abby Chicas RN - Fully [...] [M10.9] INVALID FOR* Coronary artery disease involving paiute-shoshone watson*INVALID FOR* S /P CABG (coronary artery [...] Center Sports (procedure) Medicine and Orthopaedi [facility] ([id number]) Tobacco smoking Never Invalid 03-19-2017 - [facility] Medical status NHIS Interpretation Code 03-19-20 17 [facility] (65971) Tobacco use CPHS Never Invalid 03-19-2017 - [facility] smoker Interpretation Code 03-19-2017 [facility] (39486) Vital Signs Vital Sign Description Value / Unit Date Location The following section is limited to 5 en tries per type and includes entries from the following time range: 20200417 - 7. Heart rate 0.5 ms 04-17-2020 [facility] ([id number]) Encounters Date Type Reason Provider Location 12-27-2017 Ambulatory LEVAR GUSMAN Facility:LACLEMENTE GUSMAN [facility] 04-26-2017 - [facility] 04-26-2017 disease of [place] IMCA GENERAL [facility] DICAL coronary artery without CENT ER angina pectoris 04-16-2020 - Follow-up Angelito Hamilton c 04-16-2020 encounter 04-16-2020 ICD Remote F/U Angelito Nguyen Guerin Cli beryl Department 04-16-2020 - Patient encounter [facility] Provider [facility] 04-16-2020 procedure 04-16-2020 Results Only [facility] Provider [facility] Department Procedures Procedure Name Date Provider Location CARDIAC DATA AND REPORT [facility]-16-2020 [facility] ([id number]) ICD REMOTE CHECK 04-16-2020 Angelito Nguyen Gueringregg Hamilton c ([id number]) Plan of Treatment Plan Description Date Location LIPID SCREEN LIPID SCREEN 12-23-2022 - [facility] 12-23-2022 ([id number]) DIABETES SCREEN DIABETES SCREEN 06-29-2021 - [facility] 06-29-2021 ([id number]) BP CONTROLLED (<130/80) BP CONTROLLED (<130/80) 01-28-2021 - [facility] 01-28-2021 ([id number]) INFLUENZA (#1) INFLUENZA (#1) 2020 - [facility] 03-12-2020 (97775) LDL CHOLESTEROL LDL CHOLESTEROL 12-23-2018 - [facility] 12-23-2018 ([id number]) COLORECTAL CANCER COLORECTAL CANCER 09-04-2017 - [facility] inic SCREENING,SEE MODIFIER SCREENING,SEE MODIFIER 09-04-2017 (7 [id number]) Appointment Appointment 03-19-2017 - [facility] er 03-19-2017 Sports Medicine and Orthopaedics ([phone]) ADVANCE DIRECTIVE ADVANCE DIRECTIVE 10-21-2016 - [facility] in[facility] DISCUSSION DISCUSSION 10-21-2016 ([id number]) SHINGRIX VACCINE (1 of SHINGRIX VACCINE (1 of 1991 - [facility] 2) 2) 1991 (04144) DTAP,TDAP,TD (1 - Tdap) DTAP,TDAP,TD (1 - Tdap) 02-28-1960 - [facility] 02-28-1960 ([id number]) ANNUAL PCP TEAM CHRONIC ANNUAL PCP TEAM CHRONIC 1959 - [facility] DISEASE VISIT DISEASE VISIT 1959 (56656) no information [facility] ([id number]) no information [facility] Medicine and Orthopaedics (44 691) Immunizations Vaccine Notes Status Date Location Influenza Vaccine, influenza virus (completed) 04-03-2009 - [facility] Split-Non Spec vaccine, unspecified 04-03-2009 (4419 5) formulation [facility]neumov[facility] pneum[facility] ([facility], 04-17-2015 (441 95) 23 valent TD Adult tetanus and diphtheria (completed) 01-20-2011 - [facility] toxoids, adsorbed, 01-20-2011 (70568) preservative free, for adult use (2 Lf of tetanus toxoid and 2 Lf of diphtheria toxoid) Payers Payer Name Policy Number Location [employer] MEDICARE [id number] [facility] (44 195) AETNA MEDICARE PPO [id number] [facility] ([id number]) The following information is from the original human readable contentNo Payer Records FoundNo Payer Records FoundNo Payer Records FoundNo Payer Records FoundNo Payer Records Found Social History Type Social History Date Location Description Tobacco smoking status Never smoker 01-29-2020 - [facility] NHIS 01-29-2020 (70376) Tobacco use and Never used 01-29-2020 - [facility] exposure 01-29-2020 (66787) Alcohol intake Current non-drinker of 01-29-2020 [facility] alcohol (finding) 01-29-2020 (11017) Sex Assigned At Male [facility] ([id number]) The following information is from the original human readable contentNo Social History Records FoundNo Social History Records FoundNo Social History Records FoundNo Social History Records FoundNo Social History Records FoundNo Social History Records FoundNo Social History Records Found Medical Equipment Equipment Code (if Equipment Original Equipment Procedure Code D ates provided) Text (if provided) Identifier (if (if provided) provided) Krd-Hs-S-Kind Implant [id number]_[facility] 2011 - [id number] Npx-Hi-X-Kind Implant 364462_[facility] 2011 - [id number] Shell Actb 58mm Prim [id number]_[facility] 012 Sb Hmsphr - [id number] Head Fem -4mm 28mm 364479_[facility] 2 Cocr Lfit V - [id number] Stem Fem Nk Acld Tmzf 364480_[facility] 2011 3 Hip - [id number] [place] Mri [id number]_[facility] 6 6fr Polyurethane Implantable Infusion Slim Catheter - [id number] Summary Purpose Family History No Family History Records FoundNo Family History Records FoundNo Family History Records FoundNo Family History Records Found Advance Directives Documents on File Type Date Recorded 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 [facility] provides no warranty or guarantee of the accuracy or completeness of information in this document. UNRECOGNIZED CONTENT PROVIDED BELOW FOR UNRECOGNIZED SECTION No Status Records FoundNo Status Records FoundNo Status Records FoundNo Status Records Found UNRECOGNIZED CONTENT PROVIDED BELOW FOR UNRECOGNIZED SECTION INFORMATION SOURCE DATE CREATED AUTHOR AUTHOR'S ORGANIZATIO N 01/04/2018 [facility] DATE CREATED AUTHOR AUTHOR'S ORGANIZATIO N 06/21/2018 [facility] DATE CREATED AUTHOR AUTHOR'S ORGANIZATIO N 12/12/2019 [facility] DATE CREATED AUTHOR AUTHOR'S ORGANIZATIO N 02/03/2020 [facility] UNRECOGNIZED CONTENT PROVIDED BELOW FOR UNRECOGNIZED SECTION Source Comments In the event this information is protected by the Federal Confidentiality of Alcohol and Drug Abuse Patient Records regulations: The Federal rules restrict any use of the information to criminally investigate or prosecute any alcohol or drug abuse patient.[facility] the event this information is protected by the Federal Confidentiality of Alcohol and Drug Abuse Patient Records regulations: The Federal rules restrict any use of the information to criminally investigate or prosecute any alcohol or drug abuse patient.[facility] UNRECOGNIZED CONTENT PROVIDED BELOW FOR UNRECOGNIZED SECTION Procedure Notes Angelito Nguyen MD - 04/17/2020 2:05 PM EDTAssociated Order(s): CARDIAC DATA AND REPORTDUAL LEAD ICD REMOTE EVALUATION: 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
== END 2019-11-30 22:26 | disposition home or self-care (01) ==
LOC: ED 20:38
PROVIDERS: Emergency Provider Emergency Medicine; PCP Family Medicine
DX: M62.89 Other specified disorders of muscle (principal); I10 Essential (primary) hypertension; I25.10 Atherosclerotic heart disease of native coronary artery without angina pectoris; Z79.01 Long term (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 of 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; I50.9 Heart failure, unspecified; Z79.899 Other long term (current) drug therapy
CPT/HCPCS: 73701; 80048; 85025; 99283; Q9967; A4216

== ENCOUNTER 2019-12-15 10:02 | Emergency (ER) | payer MEDICARE, SELFPAY ==
[2019-12-15 10:03] VITALS: BP 130/71; PULSE 62; RESP 16; TEMP 36.5; O2SAT 97; BMI 29.0
--- NOTE | 2019-12-15 10:20 | ED.DCSUM_ITS ---
History of Present Illness Chief Complaint: Complaint Informant: Patient Onset: Yesterday Context: Gradual Onset Timing: Continuous Narrative: Patient is a 79-year-old male with history of A. fib on Coumadin chronically as well as recent hematoma of his right lower extremity (Coumadin is currently being held) presenting with urinary retention. Patient states he has not been able to urinate since last night. He states he is having increasing discomfort in his lower abdomen. He saw his PCP today who was able to provide a urine sample but sent the patient in for further evaluation. Patient states he is feels like he is still not emptying out his bladder. It is not clear what the results of the urine sample were. Patient denies any dysuria. He denies any history of enlarged prostate. He states he had urinary retention once after a gallbladder surgery denies any other history of this. He states he does not have a urologist. He denies any associated nausea, vomiting or any other pain at this time. He has been on oxycodone for his leg pain and is not sure if this is related. Past Medical History - Allergies and Home Meds Allergies/Adverse Reactions: Allergies KALEIGH Inhibitors Adverse Reaction (Verified 12/15/19 10:03) Other LEG PAIN levofloxacin [From Levaquin] Adverse Reaction (Verified 12/15/19 10:03) aching legs trouble walking Primary Care Physician: Ghanshyam Barfield MD [Primary Care Provider] - Clemente Arboleda MD [STAFF PHYSICIAN] - Past Medical History: - - CHF, history of colon cancer, hypertension, hyperlipidemia, coronary artery disease Surgical History: - - L THR, R TKR, Distal sigmoid CA resection, Chol ecystectomy. Lives: Spouse/ Significant Other Smoking Status: Never smoker - Family History Maternal Family History: Family History (Last Reviewed 02/03/19 @ 12:58 by Angela Cox) Father Hypertension Heart disease Family History: Reports: No pertinent history Paternal Family History: Family History (Last Reviewed 02/03/19 @ 12:58 by Angela Cox) Father Hypertension Heart disease Family History: Reports: Hypertension Review of Systems General: Denies: Chills, Fever, Sweats Eyes: Denies: Visual changes - bilaterally, Diplopia ENT: Denies: Rhinorrhea, Sore throat Cardiovascular: Denies: Chest pain, Palpitations Respiratory: Denies: Dyspnea, Cough Gastrointestinal: Reports: Abdominal pain. Denies: Nausea, Vomiting, Diarrhea, Melena, Hematochezia Genitourinary: Reports: - - Urinary retention. Denies: Dysuria, Hematuria, Frequency Musculoskeletal: Reports: Extremity Pain - right. Denies: Back pain, Swelling Skin: Denies: Rash, Wounds Neurological: Denies: Headache, Weakness, Numbness Physical Exam Vital Signs/Narrative: Vital Signs Temp Pulse Resp BP Pulse Ox 12/15/19 10:03 97.7 F L 62 16 130/71 H 97 Inital Vital Signs reviewed: Yes General: Well nourished, Well developed, No Acute Distress Head: Normocephalic, Atraumatic Eyes: Perrl, EOMI ENT: Moist mucous membranes, No rhinorrhea Neck: Supple, Nontender Cardiovascular: Regular rate, Regular rhythm, No murmurs Respiratory: No distress, CTA bilaterally, Chest nontender Abdomen: Soft, Normal bowel sounds, Tender, - - Distended, palpable bladder. Negative for: Rebound tenderness Back: Nontender, Normal Inspection. Negative for: CVA tenderness Extremities: No edema Skin: Normal color, No rash Neurological: Alert, Oriented x3, Cranial nerves II-XII grossly intact, Normal Strength, Normal Sensation Psychological: Normal affect, Normal Mood Diagnostic/Tx/Re-eval Laboratory Data 12/15/19 12/15/19 12/15/19 10:45 11:10 11:10 WBC 7.5 RBC 3.93 L Hgb 12.7 L Hct 38.2 L MCV 97.2 H MCH 32.3 H MCHC 33.2 RDW Std Deviation 48.9 H RDW Coeff of Abdirahman 14.2 Plt Count 167 MPV 10.2 Immature Gran % (Auto) 0.500 Neut % (Auto) 86.6 H Lymph % (Auto) 6.6 L Barnwell % (Auto) 4.6 Eos % (Auto) 1.6 Baso % (Auto) 0.1 Absolute Neuts (auto) 6.5 Absolute Lymphs (auto) 0.50 L Nucleated RBC % 0 PT 14.0 INR 1.1 Sodium Potassium Chloride Carbon Dioxide Anion Gap BUN Creatinine Estim Creat Clear Calc Est GFR (MDRD) Af Amer Est GFR (MDRD) Non-Af BUN/Creatinine Ratio Glucose Calcium Urine Color Straw Urine Clarity Clear Urine pH 7.0 Ur Specific [place] 1.010 Urine Protein Negative Urine Glucose (UA) Normal Urine Ketones Negative Urine Occult Blood 10 H Urine Nitrite Negative Urine Bilirubin Negative Urine Urobilinogen Normal Ur Leukocyte Esterase Negative Urine RBC 0 SEEN Urine WBC 0 SEEN Ur Squamous Epith Cells 0 SEEN Urine Bacteria 1+ Urine Mucus 0 SEEN 12/15/19 11:10 WBC RBC Hgb Hct MCV MCH MCHC RDW Std Deviation RDW Coeff of Abdirahman Plt Count MPV Immature Gran % (Auto) Neut % (Auto) Lymph % (Auto) Barnwell % (Auto) Eos % (Auto) Baso % (Auto) Absolute Neuts (auto) Absolute Lymphs (auto) Nucleated RBC % PT INR Sodium 139 Potassium 3.8 Chloride 104 Carbon Dioxide 31.0 Anion Gap 4 L BUN 17 Creatinine 0.87 Estim Creat Clear Calc 56.32 Est GFR (MDRD) Af Amer 108 Est GFR (MDRD) Non-Af 90 BUN/Creatinine Ratio 19.5 Glucose 118 H Calcium 8.9 Urine Color Urine Clarity Urine pH Ur Specific [place] Urine Protein Urine Glucose (UA) Urine Ketones Urine Occult Blood Urine Nitrite Urine Bilirubin Urine Urobilinogen Ur Leukocyte Esterase Urine RBC Urine WBC Ur Squamous Epith Cells Urine Bacteria Urine Mucus - Medical Decision Making Patient is evaluated for urinary retention. He appears nontoxic but uncomfortable. Physical exam is benign except for a distended bladder. Bedside ultrasound performed by myself does show distended bladder. Negron catheter is placed and patient immediately has 500 cc of urine out. He ultimately has 1100 cc of urine out while in the emergency room. Urinalysis not consistent with infection. Patient's creatinine is at his baseline does not have findings consistent with NBA secondary to retention. His INR is checked because he was on Coumadin but stopped taking it secondary to hematoma in his leg. His INR today is essentially normal at 1.1.Patient is a mild anemia which not significantly changed from last month. Patient is counseled on Negron catheter care. He was discharged home with a Negron catheter and instructed to follow-up with urology in 1 week. He is counseled that the likely cause of his retention is enlarged prostate. Patient is counseled on signs and symptoms requiring return to the emergency room. Patient verbalizes agreement and understand this plan. Patient discharged home in stable and improved condition. ED Disposition - Plan for ED Patient: Disposition: Home or Assisted Living Diagnosis: Urinary retention Instructions: ED Negron Catheter Care, ED Urinary Retention Male Referrals: Ghanshyam Barfield MD [Primary Care Provider] - Clemente Arboleda MD [STAFF PHYSICIAN] - Additional Instructions: Please follow-up with urology in 1 week for removal of your Negron catheter. Please return the emergency room with any worsening symptoms.
[2019-12-15] MEDS: Lidocaine Jelly 2% 20 ML Syringe (URO-JET) 20 APPLIC TOPICAL (10:38)
[2019-12-15 11:04] LABS: Color, Urine Straw (Yellow); Glucose, Dipstick Normal (Normal); Ketone-Dipstick Negative (Negative); Leukocyte Esterase-Dipstick Negative /ul (Negative); Mucous, Urine 0 SEEN /hpf (<or=2+); Nitrite-Dipstick Negative (Negative); Occult Blood-Urine 10 /ul (Negative); Protein-Dipstick Negative (Negative); Red Blood Cells-Urine 0 SEEN /hpf (0-5); Squamous Epithelial Cells - UA 0 SEEN /hpf (0-5); Urine Bilirubin Dipstick Negative (Negative); Urine Clarity Clear (Clear); Urine Urobilinogen Normal (Normal); White Blood Cells 0 SEEN /hpf (0-5)
[2019-12-15 11:16] LABS: Bacteria 1+ /hpf (None Seen)
[2019-12-15 11:19] LABS: Absolute Neutrophil Count 6.5 X10^3/uL (2.0-7.7); Basophil# 0.01 X10^3/uL; Basophil% 0.1 % (0-1); Eosinophil# 0.12 X10^3/uL; Eosinophils% 1.6 % (0-5); Hematocrit 38.2 % (40-54); Hemoglobin 12.7 g/dL (13.0-16.5); Lymphocyte % 6.6 % (19-41); Mean Corp Hgb Conc 33.2 g/dL (32-36); Mean Corpuscular Hgb 32.3 pg (27.0-32.0); Mean Corpuscular Volume 97.2 fL (80-94); Mean Platelet Vol. 10.2 fl (6.2-12.0); Monocyte# 0.35 X10^3/uL; Monocyte% 4.6 % (0-10); NRBC Flagged by Analyzer 0 % (0-5); Neutrophil # 6.51 X10^3/uL (2.7-7.7); Neutrophil % 86.6 % (47-70); POSITIVE DIFFERENTIAL YES; Platelet Count 167 K/mm3 (150-450); RBC Distribution Width CV 14.2 % (11.6-14.6); RBC Distribution Width SD 48.9 fl (35.1-43.9); Red Blood Count 3.93 M/mm3 (4.6-6.2); White Blood Count 7.5 K/mm3 (4.4-11.0)
[2019-12-15 11:30] LABS: International Normalized Ratio 1.1
[2019-12-15 11:32] LABS: Anion Gap 4 (5-15); BUN 17 mg/dL (7-18); BUN/Creat Ratio 19.5 RATIO (10-20); Calcium,Total 8.9 mg/dL (8.5-10.1); Chloride 104 mmol/L (98-107); Creatinine, Serum 0.87 mg/dL (0.70-1.30); EST Glomerular Filtration Rate 90 mL/min (>60); Est Glom Filt Rate - Afr Amer 108 mL/min (>60); Estimated Creatinine Clearance 56.32 ml/min; Glucose 118 mg/dL (74-106); Potassium 3.8 mmol/L (3.5-5.1); Sodium Level 139 mmol/L (136-145)
[2019-12-15 11:53] LABS: Differential Indicated SCAN CRITERIA MET
[2019-12-15 13:36] VITALS: RESP 18
--- OUTSIDE RECORDS SUMMARY | 2020-04-28 08:21 | XMS RPT_ITS | CCD ---
:1940 External Reference #:[id number] Author Organization [facility] Care Team Providers Name Role Phone Julio Cesar Cesilia Unavailable Sascha Mckeon Unavailable NASEEM Unavailable Unavailable IMCA Unavailable Unavailable NASEEM Unavailable Unavailable NASEEM Unavailable Unavailable Marc Barfield Primary Care Provider Patrick Unavailable Allergies Reported Allergen Reaction(s) Severity Date of Onset Location Angiotensin Cough 09-03-2010 - [facility] Converting Enzyme System Rep ository ([place]) Inhibitors Translations: [ KALEIGH INHIBITORS] levoFLOXacin Moderate, 07-08-2011 - [facility] ter Moderate Sports Medicine and Orthopaedics (3 8047) levoFLOXacin Swelling High 08-14-2005 - [facility] Translations: [ System Repos itory LEVOFLOXACIN] Medications Medication Name Sig Date Prescriber Location Ascorbic Acid ascorbic acid, vitamin C, Ccf Provider [facility] ([id number]) (VITAMIN C) 500 mg tablet Take 500 mg by mouth once daily. 0 Active Comment: Take 500 mg by mouth once da kristofer. aspirin BABY ASPIRIN 81 MG CHEW 07-08-2011 [facility] Sports ASPIRIN [id number] Medicine and Orthopaedics Dianne Alaniz (12504) aspirin 81 mg chewable tablet Ccf Provider [facility] Sports Medicine Take 81 mg by mouth once daily. 0 and Orthopaedics (59447) Active Comment: Take 81 mg by mouth once torin ly. carvedilol carvedilol (COREG) 25 07-03-2019 Spring Shrestha [facility] mg tablet Take 1 [facility] Sports Medi cine and tablet by mouth twice Orthop aedics (33415) daily. 180 tablet 3 07/03/2019 Active COREG 25 MG TABS 07-08-2011 [facility] Medicine CARVEDILOL [id number] Dianne luis Orthopaedics (24758) Katty Comment: Take 1 tablet by mouth twice daily. clonazePAM CLONAZEPAM 0.5 MG TABS 07-08-2011 [facility] Sports CLONAZEPAM Medici ne and Orthopaedics [id number] Dianne Alaniz ( 70978) Comment: Take 0.5 mg by mouth three t imes daily. digoxin digoxin (LANOXIN) 125 07-03-2019 Spring Shrestha [facility] mcg (0.125 mg) tablet Vito Sports Medicine and Take 1 tablet by mouth Ortho paedics (20594) once daily. 90 tablet 3 07/03/2019 Active DIGOXIN TABS DIGOXIN TABS 07-08-2011 [facility] [id number] Dianne Alaniz and O rthopaedics (40116) DIGOXIN TABS DIGOXIN TABS 07-08-2011 [facility] [id number] Dianne Alaniz and O rthopaedics (11675) DIGOXIN TABS DIGOXIN TABS 07-08-2011 [facility] [id number] Dianne Alaniz and O rthopaedics (54825) Comment: Take 1 tablet by mouth once daily. fluticasone FLONASE 50 MCG/ACT SUSP 07-08-2011 - 03-19-2017 [facility] Sports Medicine and FLUTICASONE PROPIONATE Ortho paedics (50674) [id number] Alyson Harrell FLONASE 50 MCG/ACT SUSP 07-08-2011 [facility] Sports FLUTICASONE Medicine and Orthopaedics PROPIONATE [id number] Dianne Buckner (4 4691) Katty FLONASE 50 MCG/ACT SUSP 07-08-2011 - 03-19-2017 [facility] Sports Medicine a nd Orthopaedics FLUTICASONE PROPIONATE (12771) [id number] Alyson Harrell FLONASE 50 MCG/ACT SUSP 07-08-2011 [facility] Sports FLUTICASONE Medicine and Orthopaedics PROPIONATE [id number] Dianne M (4 4691) Stuartagley FLONASE 50 MCG/ACT SUSP 07-08-2011 [facility] Sports FLUTICASONE Medicine and Orthopaedics PROPIONATE [phone] Dianne M (4 4691) Stuartaglvicenta furosemide furosemide (LASIX) 40 07-03-2019 [facility] mg tablet Take 1 [facility] cine and tablet by mouth once Orthopa edics (82205) daily. 90 tablet 3 07/03/2019 Active FUROSEMIDE TABS 07-08-2011 [facility] FUROSEMIDE TABS [id number] Dianne M and Orthopaedics (80795) Yeagley FUROSEMIDE TABS 07-08-2011 [facility] FUROSEMIDE TABS [id number] Dianne M and Orthopaedics (39265) Yeagley FUROSEMIDE TABS 07-08-2011 [facility] FUROSEMIDE TABS [id number] Dianne M and Orthopaedics (15863) Katty Comment: Take 1 tablet by mouth once daily. Ipratropium Ipratropium Bradford 08-16-2019 Rachelle ([facility]) [facility] (ATROVENT) 0.03 % [facility] (75559) nasal spray Use 2 Sprays in the nose once daily. 0 08/16/2019 Active Comment: Use 2 Sprays in the nose onc e daily. losartan losartan (COZAAR) 100 07-03-2019 [facility] mg tablet Take 1 [facility] and tablet by mouth once Orthopa edics (53497) daily. 90 tablet 3 07/03/2019 Active COZAAR 50 MG TABS 07-08-2011 [facility] Medicine LOSARTAN POTASSIUM [id number] Dianne and Orthopaedics (84614) Sita Alaniz Comment: Take 1 tablet by mouth once daily. multivitamin tablet multivitamin tablet Take 1 Ccf Pro vider [facility] tablet by mouth once daily. (13405) 0 Active multivitamin tablet Take 1 tablet by mouth Ccf P rofadia [facility] (41911) once daily. 0 Active Comment: Take 1 tablet by mouth once daily. niacin NIACIN 500 MG TABS 07-08-2011 [facility] NIACIN Sports Med icine and [id number] Dianne Buckner Orthopaed [facility] (46387) Yeagley Potassium Chloride potassium chloride 07-03-2019 [place] Shrestha [facility] (KLOR-CON 10) 10 mEq Vito (78395) tablet Indications: Essential hypertension Take 1 tablet by mouth once daily. 90 tablet 3 07/03/2019 Active Comment: Take 1 tablet by mouth once daily. tamsulosin tamsulosin ER (FLOMAX) 0.4 mg Take Ccf Pr [facility] (56807) 0.4 mg by mouth daily at bedtime. 0 Active Comment: Take 0.4 mg by mouth daily a t bedtime. warfarin COUMADIN 3 MG TABS 03-19-2017 [facility] Sports WARFARIN SODIUM [id number] Medicine and Orthopaedics Alyson Harrell (43663 ) Problems Active Problems Category Problem Name Status Date Location Acute cerebrovascular Cerebrovascular Active 06-18-2015 - [facility] disease accident (22273) Acute myocardial Myocardial infarction Active 01-15-2016 - [facility] infarction (36683) Cancer of colon Malignant tumor of Active 07-02-2015 - [facility] colon (09144) Cardiac dysrhythmias Atrial fibrillation Active 06-18-2015 - [facility] (77215) Conduction disorders Automatic implantable Active 02-28-2008 - [facility] cardiac defibrillator (29667 ) in situ Coronary Atherosclerotic heart Active 06-18-2015 - [facility] atherosclerosis and disease of [facility] (80231) other heart disease coronary artery without angina pectoris Disorders of lipid Dyslipidemia Active 11-16-2008 - [facility] metabolism (60397) Essential hypertension Essential hypertension Active 07-01-[address] [place] [address] (10992) Gout and other crystal Gout Active 07-01-2005 - [facility] arthropathies (51069) Heart valve disorders Mitral valve disorder Active 07-01-2005 - [facility] (29805) Osteoarthritis Degenerative joint Active 07-01-2005 - [facility] disease of ankle AND/OR Spor ts Medicine and foot Orthopaedics (4 7001) Other and ill-defined Acute ill-defined Active 07-01-2005 - [facility] cerebrovascular disease cerebrovascular disease (53834) 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 (20367) Unclassified SUMMARY [facility]69[facility] Unclassified Patient encounter Active 06-06-2013 - [facility] status (25614) Unclassified No current problems or Active [facility] disability Sports Medicine and Orthopaedics (4 4691) Past or Other Problems Category Problem Name Status Date Location Gastrointestinal Rectal hemorrhage Completed 05-14-2015 - [facility] hemorrhage (33739) Other connective tissue Arthrodesis status Completed 03-19-2017 - [facility] disease Sports Medicine and Orthopaedics (4 4691) Other non-traumatic Sacroiliac disorder Completed 08-19-2018 - [facility] joint disorders (25514) Other non-traumatic Ankle pain Completed 03-19-2017 - [facility] joint disorders Sports Medic ine and Orthopaedics (4 4691) Other non-traumatic Hip pain Completed 11-20-2011 - [facility] joint disorders (38047) Pneumonia (except that Community acquired Completed 01-17-2016 - [facility] caused by tuberculosis pneumonia (4419 5) or sexually transmitted disease) Residual codes; Pain in buttock Completed 08-19-2018 - [facility] unclassified (79102) Superficial injury; Contusion of left Completed 09-28-2018 - [facility] contusion hip, initial (45100) encounter Results Result Name Value Range Unit Interpretation Flag Date Location No panel information on 2020-04-17 AV Delay Adaptive Paced 350 ms 2019 [facility] Minimum (ms) (86001) AV Delay Adaptive Sensed 325 ms 04-17 [facility] Minimum (ms) (62395) Battery Voltage 2.96 V 04-17-2020 [facility] (94970) BLANK _ 04-17-2020 [facility] (16899) Danny RA Pacing 2 V 04-17-2020 [facility] Amplitude (volts) (4 4195) Danny RA Pacing Polarity BI 04-17 [facility] (46130) Danny RA Sensing 0.5 mV 04-17-2020 [facility] Amplitude (mvolts) ( 11707) Danny RA Sensing BI 04-17-2020 [facility] Polarity (67458) Danny RV Pacing 2.5 V 04-17-2020 [facility] Amplitude (volts) (4 4195) Danny RV Pacing Polarity BI 04-17 [facility] (41919) Danny RV Sensing 0.5 mV 04-17-2020 [facility] Amplitude (mvolts) ( 72519) Danny RV Sensing BI 04-17-2020 [facility] Polarity (24072) Detection Configuration 1 - Zone 2019 [facility] (Vent) (11023) ICD FastVT DISABLED 04-17-2020 [facility] DetectionStatus (441 95) ICD-AMS EPISODES 180 {beats}/min 04-17-2020 [facility] (11517) ICD-ATP Episodes (Vent) 0 2019 [facility] (66898) ICD-Device Mfg STJ 04-17-2020 [facility] (15867) ICD-LEADIMPEDANCEATRIAL 290 ohm 2019 [facility] (76016) ICD-Percent Pacing 1.6 % 04-17-2020 [facility] (Atrial) (33492) ICD-Percent Pacing 46 % 04-17-2020 [facility] (Vent) (19778) ICD-Shocks Aborted 0 04-17-2020 [facility] (Vent) (54431) BUF-GKZJUL-NUAHUQDKF 0 0 [facility] (67593) ICD-SHOCKSABORTED 0 04-17-2020 [facility] (21193) ICD-SHOCKSDELIVEREDVENTR 0 04-17 [facility] ICULAR (50502) Implant Date 02/09/2017 04-17-2020 [facility] (30142) Implant Date 04/02/2009 04-17-2020 [facility] (75657) Lead Impedance (RV) 390 ohm 04-17-2020 [facility] (46617) Lead Impedance High 45 ohm 04-17-2020 [facility] Voltage (76009) Lead[facility] Mfg . [facility] 04-17-2020 [facility] (10978) Lead2 Mfg . [facility] 04-17-2020 [facility] (86250) Location RV 04-17-2020 [facility] (31190) Location RA 04-17-2020 [facility] (88609) Lower Rate (bpm) 50 {beats}/min 04-17-2020 [facility] (39447) Max Sensor Rate (bpm) 105 {beats}/min 2019 [facility] (94433) MDT_PROG_TACHY_ZONE_DETE ENABLED 04-17 [facility] CTIONS_STATUS (71634 ) Model 1699TC OptiSense 04-17-2020 [facility] (08336) Model 2357-40Q Fortify 04-17-2020 [facility] Jignesh HERBERT (15757) Model 7121Q Durata SJ4 04-17-2020 [facility] (63617) Pacing Mode DDD 04-17-2020 [facility] (38241) Serial Number [id number] 04-17-2020 [facility] (03724) Serial Number [id number] 04-17-2020 [facility] (67516) Serial Number [id number] 04-17-2020 [facility] (71894) Test Charge Energy 40 J 04-17-2020 [facility] (79647) Test Charge Time 9.1 s 04-17-2020 [facility] (47343) Therapy Status (Vent) Enabled 04-17-20 20 [facility] (71297) Thresh RA Capture 1 V 04-17-2020 [facility] Amplitude (volts) (4 0445) Thresh RA Capture 0.5 ms 04-17-2020 [facility] Duration (ms) (16468 ) Thresh RA Sensing 1.5 mV 04-17-2020 [facility] Amplitude (mvolts) ( 39214) Thresh RV Capture 1.25 V 04-17-2020 [facility] Amplitude (VOLTS) (4 4195) Thresh RV Capture 0.5 ms 04-17-2020 [facility] Duration (MS) (42205 ) Thresh RV Sensing 12 mV 04-17-2020 [facility] Amplitude (MVOLTS) ( 71139) Tracking Rate (bpm) 95 {beats}/min 04-17-20 [facility] (14868) VF Zone Detection 320 ms 04-17-2020 [facility] Interval (29790) VF Zone Therapy 0 ATP(s) + 6 04-17-2020 [facility] Configuration Shock(s) (52472 ) No panel information on 2020-04-16 [facility] (71448) progress on 2020-01 PROGRESS HNO ID: [id number] Normal 01-29-2020 [facility] Author: Kristie Hitchcock [place] ([id number]) Service: ? Author Type: Nurse Practitioner Type: [...] cycles completed 01/08/2016. Patient pr esented to [facility] on 01/15/2016 with complaints of co ugh, increasing shortness of breath and wheezing. Found to have a n elevation of troponin and was admitted and started on Lasix. He was then transferred to the [facility]. He underwent a left heart [...] necessary for today's visit. ? Kristie Hitchcock APRN.STRUCTURAL METAL FABRICATOR APPRENTICE ? cnovsp on 2020-01-11 0 CNOVSP Visit (SP) Office (NASEEM) Normal [place] [facility] DARRELL CORONEL ([id number]) 1940 M [place] Date Time Provider Department (38160) 01/29/20 10:30 AM KRISTIE HITCHCOCK During your visit today, we recorded the following informati on about you: Temperature Pulse Blood pressure Weight 97.7 degrees 57/minute 125/68 73.5 kg Kristie Hitchcock, MICHEL.STRUCTURAL METAL FABRICATOR APPRENTICE 01/29/2020 2:44 PM Signed Chief Complaint Patient [...] x9 cycles completed . Patient presented to [facility] on 01/15/2016 with complaints o f cough, increasing shortness of breath and wheezing. Amy d to have an elevation of troponin and was admitted and started on Lasix. He was then transferred to the main [facility]. He underwent a left heart catheterization [...] necessary for today's visit. ? Kristie Hitchcock APRN.STRUCTURAL METAL FABRICATOR APPRENTICE ? Meenu Verma LPN 01/29/2020 10:32 AM Signed Est patient. Six month OV. 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] Order(s):CT ABD/PEL W IVCON [[id number]] Order #: [id number] FU TURE CT CHEST W IVCON [8743201] Order #: [id number] FUTURE iv contrast (will be provided with [...] EachRfl: 0 CREATININE BLD [SQCRET] Order #: [id number] FUTURE Follow-up and Disposition History Recorded Prescriptions [...] ankle [M10.9] 06/18/2015 Coronary artery disease involving [facility]son*06/18/2015 S/P CABG (coronary artery bypass graft) [...] Verma LPN Encounter Status:Closed by KRISTIE HITCHCOCK STRUCTURAL METAL FABRICATOR APPRENTICE on 01/29/20 cea on 2020-01-29 CEA 1.0 0.0-2.9 ng/mL Normal 01-29-2020 [facility] ([id number]) Comment: Result Comment: Test analyze d by the Wilian DxI method. Performed By: #### CEA ####C [facility] [place], [place] [phone] progress on 2019-12 PROGRESS HNO ID: [id number] Normal 01-01-2020 [facility] Author: Alexis Craft [place] ([id number]) Service: ? Author Type: Physician Type: Progress Notes Filed: 01/01/2020 1:59 PM Note Text: Alexis Craft MD Interventional Cardiology [address] [place] [address] Chief Complaint Patient presents with: Heart Problem Cardiology follow up HISTORY OF PRESENT ILLNESS: Mr. Coronel is a 79 year old male seen today in follow-up t here are extensive cardiac history in the past history of bypass surg joby for severe three-vessel coronary artery disease in 2005 with 5 vessel b ypass graft done at the [facility] patient has severe LV syst olic [...] IJ port - S PACK PHACO 30K 1023-3200-12 Left - SKIN BX, 1 LESION 07/30/14 [...] Medications Medication Sig Dispense Refill - Ipratropium Bradford (ATROVENT) 0.03 % nasal spray Use 2 [...] was partially created using a dictation recog [employer] software. A reasonable attempt has been made to correct any errors. ecg complete on ECG COMPLETE NAME : DARRELL CORONEL Normal [facility] PID : [id number] Kyle scales ([id number]) : 1940 Gender : Male Race : ORD : [id number] Procedure Date : Jan 01 2020 13:10:37 [...] ms QTC Calculation(Bazett) : 440 ms P [place] : 71 degrees R [place] : -33 degrees T [place] : 43 degrees Test Reason : Location : 189 : WOASC Overread By : SANDRA DANG M.D. Edited By : SANDRA DANG M.D. Referred By : ALEXIS CRAFT Acquired by : nathan canales cnov on 2020-01-01 CNOV Office Visit (STACY) Normal 01-01-[address] [place] [address] [facility] DARRELL CORONEL ([id number]) 1940 [facility] Date Time Provider Department (38985) 01/01/20 1:00 PM ALEXIS CRAFT During your visit today, we recorded the following informati on about you: Pulse Respiration Blood pressure Weight 62/minute 16/minute 112/62 72.6 kg Alexis Craft MD 01/01/2020 1:59 PM Signed Alexis Craft MD Interventional Cardiology [address] [place] [address] Chief Complaint Patient presents with: Heart Problem Cardiology follow up HISTORY OF PRESENT ILLNESS: Mr. Coronel is a 79 year old male seen today in follow-up there are extensive cardiac history in the past history of bypass torres rgery for severe three-vessel coronary artery disease in 2005 with 5 vessel bypass graft done at the [facility] patient has severe LV systolic dysfunction [...] FIVE 08/27/05 - COLONOSCOP W/ OR W/O [facility] SPEC 06-25-15 - COLONS W/REM POLYP HT BX 09/04/2016 - ICD (ICD) 03/19/06 and 04/03/09 - LAP COLECTOMY W COLOPROCTOST 07-17-15 - LAPAROSCOPIC CHOLEYCYSTECTOMY 08/12/2013 - PAST SURGICAL HISTORY OF 1993 and 1994 calcium deposits removed left ankle - REMOVAL MISSY VAD W PORT/PUMP Right 12/18/2016 Removal right IJ port - S PACK PHACO 30K [id number] Left - SKIN BX, 1 LESION 07/30/14 [...] Medications Medication Sig Dispense Refill - Ipratropium Bradford (ATROVENT) 0.03 % nasal spray Us e [...] The above note was partially created usi [employer] dictation recognition software. A reasonable attempt has been made to correct any errors. Referring Provider: SELF [[id number]] Allergies As of Date: 01/01/2020 Noted Allergy Reaction LEVAQUIN (LEVOFLOXACIN) 08/14/2005 7 - Swelling KALEIGH INHIBITORS 09/03/2010 3 - Cough Date Reviewed: 01/01/2020 Reviewed by: Alexis Craft - Fully Assessed Reason for Visit: Heart Problem [54] Primary Visit Diagnosis:NSTEMI (non-ST elevated myocar dial infarction) ([facility]) [I21.4] Other Visit Diagnosis:Paroxysmal atrial fibrillation ([facility]) [ I48.0] Order(s):ECG COMPLETE [ECG01] Order #: [id number] FUTURE EKG [[id number]] Order #: [id number] Prescriptions as of 01/01/2020 Sig: IPRATROPIUM BROMIDE [...] ankle [M10.9] 06/18/2015 Coronary artery disease involving [facility]son*06/18/2015 S/P CABG (coronary artery bypass graft) [...] on 2019-12-12 EDER Telephone (QUINTON) Normal 12-12-2019 [facility] DARRELL CORONEL ([id number]) 1940 [facility] Date Time Provider Department ([id number]) 12/12/19 [place] HERNÁNDEZ During your visit today, [...] Cough Date Reviewed: 08/16/2019 Reviewed by: Rachelle ([facility]) [place] - Fully Assessed Reason for Visit: Question [0191] Cmt: MRI Prescriptions as of 12/12/2019 Sig: [...] ankle [M10.9] 06/18/2015 Coronary artery disease involving [facility] watson*06/18/2015 S/P CABG (coronary artery bypass graft) [...] Encounter Status:Closed by KELLIE GONZALEZ on 12/12/19 [facility] Normal 12-12-2019 [facility] DARRELL CORONEL ([id number]) 1940 M (37005) Date Time Provider Department 12/12/19 RACHELLE AGUILAR ([facility]) [facility] During your visit today, we recorded the following informati on about you: Rachelel Aguilar APRN.STRUCTURAL METAL FABRICATOR APPRENTICE 12/12/2019 9:37 AM Signed 9:36 AM Rec'd [...] questions or concerns . Rachelle Aguilar DNP, CAR PINCHER, NP_C Allergies As of Date: 12/12/2019 Noted Allergy Reaction LEVAQUIN (LEVOFLOXACIN) 08/14/2005 7 - Swelling KALEIGH INHIBITORS 09/03/2010 3 - Cough Date Reviewed: 08/16/2019 Reviewed by: [facility] [place] - Fully Assessed Reason for Visit: Question [5070] Prescriptions as of 12/12/2019 Sig: IPRATROPIUM BROMIDE [...] ankle [M10.9] 06/18/2015 Coronary artery disease involving [facility]*06/18/2015 S/P CABG (coronary artery bypass graft) [...] 12/12/19 progress on 2019-08 PROGRESS HNO ID: [id number] Normal 08-16-2019 [facility] Author: Rachelle Aguilar ([id number]) Service: ? Author Type: Nurse Practitioner Type: Progress Notes Filed: 08/16/2019 12:47 PM Note Text: Heart and Vascular [place] [facility] Heart Failure Clinic OUTPATIENT VISIT [...] at this time. [place] his and his dog. Has 5 sons. Advanced directives h ave been completed and are scanned into [employer]. SOB: No Fatigue: No Orthopnea:No PND: No [...] FIVE 08/27/05 - COLONOSCOP W/ OR W/O [facility] SPEC 06-25-15 - COLONS W/REM POLYP HT BX 09/04/2016 - ICD (ICD) 03/19/06 and 04/03/09 - LAP COLECTOMY W COLOPROCTOST 07-17-15 - LAPAROSCOPIC CHOLEYCYSTECTOMY 08/12/2013 - PAST SURGICAL HISTORY OF 1993 and 1994 calcium deposits removed left ankle - REMOVAL MISSY VAD W PORT/PUMP Right 12/18/2016 Removal right IJ port - S PACK PHACO 30K [id number] Left - SKIN BX, 1 LESION 07/30/14 [...] will, both of which are scanned into [employer].. 7. Provided pt with all contact information [...] PM cnov on 2019-08-16 CNOV Office Visit ([facility]) Normal 08-16-19 [facility] DARRELL CORONEL ([id number]) 1940 M (44575) Date Time Provider Department 08/16/19 11:00 AM RACHELLE AGUILAR (SKIP) [facility] During your visit today, we recorded the following informati on about you: Pulse Blood pressure Weight 54/minute 125/64 76.8 kg Rachelle Aguilar APRN.CNP 08/16/2019 12:47 PM Signed Heart and Vascular [place] [facility] Heart Failure Clinic OUTPATIENT VISIT [...] at this time. [place] his and his dog. Has 5 sons. Advanced direc tives have been completed and are scanned into [employer]. SOB: No Fatigue: No Orthopnea:No PND: No [...] IJ port - S PACK PHACO 30K [id number] Left - SKIN BX, 1 LESION 07/30/14 [...] will, both of which are scanned into [employer].. 7. Provided pt with all contact information [...] me at . Referring Provider: SPRING HERNÁNDEZ [[id number]] Allergies As of Date: 08/16/2019 Noted Allergy Reaction LEVAQUIN (LEVOFLOXACIN) 08/14/2005 7 - Swelling KALEIGH INHIBITORS 09/03/2010 3 - Cough Date Reviewed: 08/16/2019 Reviewed by: Rachelle (Skip) Zenobia - Fully Assessed Reason for Visit: New Patient [172] Establish Care [42] Primary Visit Diagnosis:Chronic systolic heart failure (HCC) [I50.22] Other Visit Diagnoses:Coronary artery disease involving carmelo ve coronary artery of holy cross heart without angina pectoris [I25.10] Essential hypertension, benign [I10] Hyperlipidemia, unspecified hyperlipidemia type [E78.5] PAF (paroxysmal atrial fibrillation) ([facility]) [I48.0] ICD (implantable cardioverter-defibrillator) in place [Z95.810] Order(s):Ipratropium Bradford (ATROVENT) 0.03 % n jasvir sprayUse 2 [...] hip replacement) [Z96.64*01/05/2012 IRB # [id number]: [facility] - Cardiac Rachel*06/06/2013 Rectal bleeding [K62.5] 05/14/2015 Gout of ankle [M10.9] 06/18/2015 Coronary artery disease involving holy cross watson*06/18/2015 S/P CABG (coronary artery bypass graft) [...] or concern, you can call me at [phone]. Prescriptions ordered this encounter Disp Refills Start End IPRATROPIUM BROMIDE 0.03 % NASAL SPR* 08/16/2019 Class: Med Update Route: NASAL Sig: Use 2 Sprays in the nose once daily. Level of Service: NEW PATIENT VISIT LEVEL 3 [[id number]] Encounter Status:Closed by RACHELLE AGUILAR CNP on 08/16/19 progress on 2019-07 PROGRESS HNO ID: [id number] Normal 07-27-2019 [facility] Author: Kristie Guerin ([id number]) Service: ? Author Type: Nurse Practitioner Type: [...] cycles completed 01/08/2016. Patient pr esented to [facility] on 01/15/2016 with complaints of co ugh, increasing shortness of breath and wheezing. Found to have a n elevation of troponin and was admitted and started on Lasix. He was then transferred to the main [facility]. He underwent a left heart catheterization [...] Mayorga. Will have report sc anned into [facility]. - ?CT chest/abd/pelvis due in one year. - ?Follow up in 6?months with CEA-pending today's CEA. - ?Pt. aware to call office with any questions/concerns. ? ? The patient indicates understanding of these issues and agre es with the plan. ? ? ? CLIF Acuna on 2019-07-12 6 GÓMEZOVS Visit (SP) Office (NASEEM) Normal [facility] TONEYDARRELL HERNANDEZ Sascha ([id number]) 1940 M [place] Date Time Provider Department ([id number]) 07/27/19 9:30 AM KRISTIE HITCHCOCK During your [...] x9 cycles completed . Patient presented to [facility] on 01/15/2016 with complaints o f cough, increasing shortness of breath and wheezing. Foun d to have an elevation of troponin and was admitted and started on Lasix. He was then transferred to the [facility]. He underwent a left heart [...] Mayorga. Will have rep ort scanned into [facility]. - ?CT chest/abd/pelvis due in one year. - ?Follow up in 6?months with CEA-pending today's CEA. - ?Pt. aware to call office with any questions/concerns. ? ? The patient indicates understanding of these iss ues and agrees with the plan. ? ? ? Kristie Hitchcock, CAR PINCHER.STRUCTURAL METAL FABRICATOR APPRENTICE Referring Provider: KRISTIE HITCHCOCK [[id number]] Allergies As of Date: 07/27/2019 Noted Allergy [...] ankle [M10.9] 06/18/2015 Coronary artery disease involving holy cross watson*06/18/2015 S/P CABG (coronary artery bypass graft) [...] [S70.02XA] 09/28/2018 Encounter Status:Closed by KRISTIE HITCHCOCK STRUCTURAL METAL FABRICATOR APPRENTICE on 07/27/19 cea on 2019-07-27 CEA 1.3 0.0-2.9 ng/mL Normal 07-27-2019 [facility] ([id number]) Comment: Result Comment: Test analyze d by the Wilian DxI method. Performed By: #### CEA #### [facility] [address] [id number] progress on 2019-07 PROGRESS HNO ID: [id number] Normal 07-18-2019 [facility] Author: Juana ([facility]) [facility] ([id number]) Service: ? Author Type: Human Resources Hr Representative Type: Progress Notes Filed: 07/18/2019 12:17 PM [...] * *Final Report* * * Normal 2019 [facility] IVCON DATE OF EXAM: Jul 18 2019 11:56AM [place] ([id number]) [facility] 0539 - CT CHEST W IVCON / [...] lung nodules. Stable borderline RIGHT hilar adenopathy. Bottle Selector: PSCB Transcribe Date/Time: Jul 18 2019 1:49P Dictated by : JORDAN MCKEON MD This examination was interpreted and the report reviewed and electronically signed by: JORDAN MCKEON MD on Jul 18 2019 1:58PM EST [id number] ct abd/pel w ivcon on 2019-07-18 CT ABD/PEL W * * *Final Report* * * Normal [facility] IVCON DATE OF EXAM: Jul 18 2019 11:56AM [place] ([id number]) [facility] 0530 - CT ABD/PEL W IVCON / [...] pelvis. Stable LEFT adrenal nodule likely adenoma. Bottle Selector: KRISTEN Transcribe Date/Time: Jul 18 2019 1:39P Dictated by : JORDAN MCKEON MD This examination was interpreted and the report reviewed and electronically signed by: JORDAN MCKEON MD on Jul 18 2019 1:46PM EST [id number] creatinine on 07-18 Creatinine [Mass/Vol] 0.85 0.73-1.22 mg/dL Normal 07-18-19 [facility] ([id number]) Creatinine [Mass/Vol] >60 Normal 07-18-19 [facility] ([id number]) Comment: Result Comment: eGFR (Estima obed GFR) [...] GFR. progress on 2019-06 PROGRESS HNO ID: [id number] Normal 07-03-2019 [facility] Author: Spring Hernández, [place] ([id number]) Service: ? Author Type: Physician Type: Progress Notes Filed: 07/03/2019 12:47 PM Note Text: [facility] SECTION OF [facility] CARDIOLOGY [facility] OUTPATIENT VISIT DATE July 03, 2019 PRIMARY CARE PHYSICIAN: Van Barfield MD ([facility]) [address] [place] [address] HISTORY OF PRESENT ILLNESS: Mr. Coronel is [...] IJ port - S PACK PHACO 30K [id number] Left - SKIN BX, 1 LESION 07/30/14 [...] DO, FACC, FAC Clinical and Preventive Cardiology [facility] cnov on 2019-07-03 CNOV Office Visit (QUINTON) Normal 07-03-20 [place] [facility] DARRELL CORONEL Sascha ([id number]) 1940 M [place] Date Time Provider Department ([id number]) 07/03/19 11:40 AM SPRING HERNÁNDEZ During your visit today, we recorded the following informati on about you: Pulse Blood pressure Weight Height 57/minute 112/56 77.1 kg 1.588 m Spring Hernández DO, DO 07/03/2019 12:47 PM Signed [facility] C[facility]IOLOGY [facility] OUTPATIENT VISIT DATE July 03, 2019 PRIMARY CARE PHYSICIAN: Van Barfield MD ([facility]) [address] [place] [address] HISTORY OF PRESENT ILLNESS: Mr. Coronel is [...] FIVE 08/27/05 - COLONOSCOP W/ OR W/O [facility] SPEC 06-25-15 - COLONS W/REM POLYP HT BX 09/04/2016 - ICD (ICD) 03/19/06 and 04/03/09 - LAP COLECTOMY W COLOPROCTOST 07-17-15 - LAPAROSCOPIC CHOLEYCYSTECTOMY 08/12/2013 - PAST SURGICAL HISTORY OF 1993 and 1994 calcium deposits removed left ankle - REMOVAL MISSY VAD W PORT/PUMP Right 12/18/2016 Removal right IJ port - S PACK PHACO 30K [id number] Left - SKIN BX, 1 LESION 07/30/14 [...] twice daily. Spring Hernández DO, [facility] Clinical and Preventive Cardiology [facility] Referring Provider: SPRING HERNÁNDEZ [[id number]] Allergies As of Date: 07/03/2019 Noted Allergy Reaction LEVAQUIN (LEVOFLOXACIN) 08/14/2005 7 - Swelling KALEIGH INHIBITORS 09/03/2010 3 - Cough Date Reviewed: 07/03/2019 Reviewed by: Spring Hernández DO - Fully Assessed Reason for Visit: CARD Follow Up 6 Month [1231] Cmt: no issues Primary Visit Diagnosis:Coronary artery disease involving na tive coronary artery of holy cross heart without angina pectoris [I25.10] Other Visit [...] tabletRfl: 3 CONSULT TO CHRONIC CARE (EU,FV,HL,LK,SANDRA,ME,MM,SP) [[id number]] Order #: [id number]: 1 Prescriptions as of 07/03/2019 Sig: PRAVASTATIN [...] ankle [M10.9] 06/18/2015 Coronary artery disease involving holy cross watson*06/18/2015 S/P CABG (coronary artery bypass graft) [...] Refill Normal 06-17-2018 [facility] (AGCARDWST) DARRELL CORONEL ([id number]) 1940 M Date Time Provider Nfjrrgndrz89/7/18 LEVAR GUSMAN AGCARDWST During your Medical visit today, we recorded the following information about you:Allergies As of Date: 06/17/2018 Noted Allergy Center ReactionLEVAQUIN (LEVOFLOXAC IN) 08/14/2005 7 - SwellingACE INHIBITORS 09/03/2010 3 - CoughDate Reviewed: ([id number]) 12/29/2017Reviewed by: Abby Chicas RN - Fully [...] [M10.9] INVALID FOR* Coronary artery disease involving holy cross watson*INVALID FOR* S /P CABG (coronary artery [...] Center Sports (procedure) Medicine and Orthopaedi [facility] ([id number]) Tobacco smoking Never Invalid 03-19-2017 - [facility] Medical status NHIS Interpretation Code 03-19-20 17 [facility] (05402) Tobacco use CPHS Never Invalid 03-19-2017 - [facility] smoker Interpretation Code 03-19-2017 [facility] (36613) Vital Signs Vital Sign Description Value / Unit Date Location The following section is limited to 5 en tries per type and includes entries from the following time range: 20200417 - 7. Heart rate 0.5 ms 04-17-2020 [facility] ([id number]) Encounters Date Type Reason Provider Location 12-27-2017 Ambulatory LEVAR GUSMAN Facility[facility] 04-26-2017 - [facility]ros[facility] 04-26-2017 disease of holy cross [facility] GENERAL ME DICAL coronary artery without CENT ER angina pectoris 04-16-2020 - Follow-up Angelito Hamilton c 04-16-2020 encounter 04-16-2020 ICD Remote F/U Angelito Nguyen Guerin Cli beryl Department 04-16-2020 - Patient encounter [facility] Provider [facility] 04-16-2020 procedure 04-16-2020 Results Only [facility] Provider [place] [facility] Department Procedures Procedure Name Date Provider Location CARDIAC DATA AND REPORT [facility]-16[facility] ([id number][facility] ICD REMOTE CHECK 04-16-2020 Angelito Nguyen Gueringregg Hamilton c ([id number]) Plan of Treatment Plan Description Date Location LIPID SCREEN LIPID SCREEN 12-23-2022 - [facility] 12-23-2022 ([id number]) DIABETES SCREEN DIABETES SCREEN 06-29-2021 - [facility] 06-29-2021 ([id number]) BP CONTROLLED (<130/80) BP CONTROLLED (<130/80) 01-28-2021 - [facility] 01-28-2021 ([id number]) INFLUENZA (#1) INFLUENZA (#1) 2020 - [facility] 03-12-2020 ([id number]) LDL CHOLESTEROL LDL CHOLESTEROL 12-23-2018 - [facility] 12-23-2018 ([id number]) COLORECTAL CANCER COLORECTAL CANCER 09-04-2017 - [facility] inic SCREENING,SEE MODIFIER SCREENING,SEE MODIFIER 09-04-2017 ([id number]) Appointment Appointment 03-19-2017 - [facility] er 03-19-2017 Sports Medicine and Orthopaedics ([phone]) ADVANCE DIRECTIVE ADVANCE DIRECTIVE 10-21-2016 - [facility] inic DISCUSSION DISCUSSION 10-21-2016 ([id number]) SHINGRIX VACCINE (1 of SHINGRIX VACCINE (1 of 1991 - [facility] 2) 2) 1991 (18042) DTAP,TDAP,TD (1 - Tdap) DTAP,TDAP,TD (1 - Tdap) 02-28-1960 - [facility] 02-28-1960 (35109) ANNUAL PCP TEAM CHRONIC ANNUAL PCP TEAM CHRONIC 1959 - [facility] DISEASE VISIT DISEASE VISIT 1959 (05906) no information [facility] ([id number]) no information [facility] er Sports Medicine and Orthopaedics (44 691) Immunizations Vaccine Notes Status Date Location Influenza Vaccine, influenza virus (completed) 04-03-2009 - [facility] Split-Non Spec vaccine, unspecified 04-03-2009 (4419 5) formulation Pneumovax pneumococcal (completed) [facility], 04-17-2015 (441 95) 23 valent TD Adult tetanus and diphtheria (completed) 01-20-2011 - [facility] toxoids, adsorbed, 01-20-2011 (09603) preservative free, for adult use (2 Lf of tetanus toxoid and 2 Lf of diphtheria toxoid) Payers Payer Name Policy Number Location [employer]ET[employer] MEDICARE [id number] [facility] (44 195) AETNA MEDICARE PPO [id number] [facility] ([id number]) The following information is from the original human readable contentNo Payer Records FoundNo Payer Records FoundNo Payer Records FoundNo Payer Records FoundNo Payer Records Found Social History Type Social History Date Location Description Tobacco smoking status Never smoker 01-29-2020 - [facility] NHIS 01-29-2020 (12510) Tobacco use and Never used 01-29-2020 - [facility] exposure 01-29-2020 (79351) Alcohol intake Current non-drinker of 01-29-2020 [facility] alcohol (finding) 01-29-2020 (30829) Sex Assigned At Male [facility] ([id number]) The following information is from the original human readable contentNo Social History Records FoundNo Social History Records FoundNo Social History Records FoundNo Social History Records FoundNo Social History Records FoundNo Social History Records FoundNo Social History Records Found Medical Equipment Equipment Code (if Equipment Original Equipment Procedure Code D ates provided) Text (if provided) Identifier (if (if provided) provided) Ktq-Ej-R-Kind Implant [id number]_[facility] 2011 - [id number] Sqb-Ar-T-Kind Implant 364462_[facility] 2011 - [id number] Shell Actb 58mm Prim [id number]_[facility] 012 Sb Hmsphr - [id number] Head Fem -4mm 28mm 364479_[facility] 2 Cocr Lfit V - [id number] Stem Fem Nk Acld Tmzf 364480_[facility] 2011 3 Hip - [id number] Port Power[place] Mri 1047001_[facility] 6 6fr Polyurethane Implantable Infusion Slim Catheter - [id number] Summary Purpose Family History No Family History Records FoundNo Family History Records FoundNo Family History Records FoundNo Family History Records Found Advance Directives Documents on File Type Date Recorded 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 [facility] provides no warranty or guarantee of the accuracy or completeness of information in this document. UNRECOGNIZED CONTENT PROVIDED BELOW FOR UNRECOGNIZED SECTION No Status Records FoundNo Status Records FoundNo Status Records FoundNo Status Records Found UNRECOGNIZED CONTENT PROVIDED BELOW FOR UNRECOGNIZED SECTION INFORMATION SOURCE DATE CREATED AUTHOR AUTHOR'S ORGANIZATIO N 01/04/[address] [facility] DATE CREATED AUTHOR AUTHOR'S ORGANIZATIO N 06/21/2018 [facility] DATE CREATED AUTHOR AUTHOR'S ORGANIZATIO N 12/12/2019 [facility] DATE CREATED AUTHOR AUTHOR'S ORGANIZATIO N 02/03/2020 [facility] UNRECOGNIZED CONTENT PROVIDED BELOW FOR UNRECOGNIZED SECTION Source Comments In the event this information is protected by the Federal Confidentiality of Alcohol and Drug Abuse Patient Records regulations: The Federal rules restrict any use of the information to criminally investigate or prosecute any alcohol or drug abuse patient.[facility] the event this information is protected by the Federal Confidentiality of Alcohol and Drug Abuse Patient Records regulations: The Federal rules restrict any use of the information to criminally investigate or prosecute any alcohol or drug abuse patient.[facility] UNRECOGNIZED CONTENT PROVIDED BELOW FOR UNRECOGNIZED SECTION Procedure Notes Angelito Nguyen MD - 04/17/2020 2:05 PM EDTAssociated Order(s): CARDIAC DATA AND REPORTDUAL LEAD ICD REMOTE EVALUATION: PRESENTING EGM: /GRADUATE TEACHING ASSOCIATE BATTERY STATUS: Normal with no significant depletion, [...]
--- OUTSIDE RECORDS SUMMARY | 2020-04-28 08:23 | XMS RPT_ITS | CCD ---
:1940 External Reference #:[id number] Author Organization [facility] Care Team Providers Name Role Phone Julio Cesar Cesilia Unavailable Sascha Mckeon Unavailable NASEEM Unavailable Unavailable IMCA Unavailable Unavailable NASEEM Unavailable Unavailable NASEEM Unavailable Unavailable Marc Barfield Primary Care Provider Patrick Unavailable Allergies Reported Allergen Reaction(s) Severity Date of Onset Location Angiotensin Cough 09-03-2010 - [facility] Converting Enzyme System Rep ository (Kaleigh) Inhibitors Translations: [ KALEIGH INHIBITORS] levoFLOXacin Moderate, 07-08-2011 - [facility] ter Moderate Sports Medicine and Orthopaedics (7 4115) levoFLOXacin Swelling High 08-14-2005 - [facility] Translations: [ System Repos itory LEVOFLOXACIN] Medications Medication Name Sig Date Prescriber Location Ascorbic Acid ascorbic acid, vitamin C, Ccf Provider [facility] ([id number]) (VITAMIN C) 500 mg tablet Take 500 mg by mouth once daily. 0 Active Comment: Take 500 mg by mouth once da kristofer. aspirin BABY ASPIRIN 81 MG CHEW 07-08-2011 [facility] Sports ASPIRIN [id number] Medicine and Orthopaedics Dianne Alaniz (52310) aspirin 81 mg chewable tablet Ccf Provider [facility] Sports Medicine Take 81 mg by mouth once daily. 0 and Orthopaedics (40100) Active Comment: Take 81 mg by mouth once torin ly. carvedilol carvedilol (COREG) 25 07-03-2019 [facility] mg tablet Take 1 [facility] Sports Medi cine and tablet by mouth twice Orthop aedics (70279) daily. 180 tablet 3 07/03/2019 Active COREG 25 MG TABS 07-08-2011 [facility] Medicine CARVEDILOL [id number] Dianne luis Orthopaedics (27939) Katty Comment: Take 1 tablet by mouth twice daily. clonazePAM CLONAZEPAM 0.5 MG TABS 07-08-2011 [facility] Sports CLONAZEPAM Medici ne and Orthopaedics [id number] Dianne Alaniz ( 48412) Comment: Take 0.5 mg by mouth three t imes daily. digoxin digoxin (LANOXIN) 125 07-03-2019 [facility] mcg (0.125 mg) tablet [facility]ito Sports Medicine and Take 1 tablet by mouth Ortho paedics (80221) once daily. 90 tablet 3 07/03/2019 Active DIGOXIN TABS DIGOXIN TABS 07-08-2011 [facility] [id number] Dianne Alaniz and O rthopaedics (43216) DIGOXIN TABS DIGOXIN TABS 07-08-2011 [facility] [place] [id number] Dianne Alaniz and O rthopaedics (10357) DIGOXIN TABS DIGOXIN TABS 07-08-2011 [facility] [place] [phone] Dianne Alaniz and O rthopaedics (55779) Comment: Take 1 tablet by mouth once daily. fluticasone FLONASE 50 MCG/ACT SUSP 07-08-2011 - 03-19-2017 [facility] Medicine and FLUTICASONE PROPIONATE Ortho paedics (46425) [id number] Alyson Harrell FLONASE 50 MCG/ACT SUSP 07-08-2011 [facility] Sports FLUTICASONE Medicine and Orthopaedics PROPIONATE [id number] Dianne Buckner (4 4691) Katty FLONASE 50 MCG/ACT SUSP 07-08-2011 - 03-19-2017 [facility] Medicine a nd Orthopaedics FLUTICASONE PROPIONATE (74588) [id number] Alyson Harrell FLONASE 50 MCG/ACT SUSP 07-08-2011 [facility] Sports FLUTICASONE Medicine and Orthopaedics PROPIONATE [phone] Dianne M (4 4691) Stuartagley FLONASE 50 MCG/ACT SUSP 07-08-2011 [facility] Sports FLUTICASONE Medicine and Orthopaedics PROPIONATE [id number] Dianne M (4 4691) Stuartaglvicenta furosemide furosemide (LASIX) 40 07-03-2019 [facility] mg tablet Take 1 [facility] cine and tablet by mouth once Orthopa edics (03871) daily. 90 tablet 3 07/03/2019 Active FUROSEMIDE TABS 07-08-2011 [facility] [place] FUROSEMIDE TABS [id number] Dianne M and Orthopaedics (51679) Yeagley FUROSEMIDE TABS 07-08-2011 [facility] [place] FUROSEMIDE TABS [id number] Dianne M and Orthopaedics (63277) Yeagley FUROSEMIDE TABS 07-08-2011 [facility] [place] FUROSEMIDE TABS [phone] Dianne M and Orthopaedics (45706) Katty Comment: Take 1 tablet by mouth once daily. Ipratropium Ipratropium Ripton 08-16-2019 Rachelle ([facility]) [facility] (ATROVENT) 0.03 % [facility] (44548) nasal spray Use 2 Sprays in the nose once daily. 0 08/16/2019 Active Comment: Use 2 Sprays in the nose onc e daily. losartan losartan (COZAAR) 100 07-03-2019 [facility] mg tablet Take 1 [facility] and tablet by mouth once Orthopa edics (40644) daily. 90 tablet 3 07/03/2019 Active COZAAR 50 MG TABS 07-08-2011 [facility] Medicine LOSARTAN POTASSIUM [phone] Dianne and Orthopaedics (02735) Sita Alaniz Comment: Take 1 tablet by mouth once daily. multivitamin tablet multivitamin tablet Take 1 Ccf Pro vider [facility] tablet by mouth once daily. (86521) 0 Active multivitamin tablet Take 1 tablet by mouth Ccf P rofadia [facility] (01342) once daily. 0 Active Comment: Take 1 tablet by mouth once daily. niacin NIACIN 500 MG TABS 07-08-2011 [facility] NIACIN Sports Med icine and [phone] Dianne Buckner Orthopaed [facility] (03567) Yeagley Potassium Chloride potassium chloride 07-03-2019 [facility] (KLOR-CON 10) 10 mEq Vito (28577) tablet Indications: Essential hypertension Take 1 tablet by mouth once daily. 90 tablet 3 07/03/2019 Active Comment: Take 1 tablet by mouth once daily. tamsulosin tamsulosin ER (FLOMAX) 0.4 mg Take Ccf Pr [facility] (90320) 0.4 mg by mouth daily at bedtime. 0 Active Comment: Take 0.4 mg by mouth daily a t bedtime. warfarin COUMADIN 3 MG TABS 03-19-2017 [facility] Sports WARFARIN SODIUM [phone] Medicine and Orthopaedics Alyson Harrell (09654 ) Problems Active Problems Category Problem Name Status Date Location Acute cerebrovascular Cerebrovascular Active 06-18-2015 - [facility] disease accident (10532) Acute myocardial Myocardial infarction Active 01-15-2016 - [facility] infarction (90323) Cancer of colon Malignant tumor of Active 07-02-2015 - [facility] colon (73555) Cardiac dysrhythmias Atrial fibrillation Active 06-18-2015 - [facility] (47507) Conduction disorders Automatic implantable Active 02-28-2008 - [facility] cardiac defibrillator (31138 ) in situ Coronary Atherosclerotic heart Active 06-18-2015 - [facility] atherosclerosis and disease of pilot station Sys tem (95950) other heart disease coronary artery without angina pectoris Disorders of lipid Dyslipidemia Active 11-16-2008 - [facility] metabolism (78705) Essential hypertension Essential hypertension Active 07-01-[address] [place] [address] (41119) Gout and other crystal Gout Active 07-01-2005 - [facility] arthropathies (07031) Heart valve disorders Mitral valve disorder Active 07-01-2005 - [facility] (34275) Osteoarthritis Degenerative joint Active 07-01-2005 - [facility] disease of ankle AND/OR Spor ts Medicine and foot Orthopaedics (4 8008) Other and ill-defined Acute ill-defined Active 07-01-2005 - [facility] cerebrovascular disease cerebrovascular disease (13325) 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 - [facility] disease arthroplasty (71065) Keren-; endo-; 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 - [facility] myocarditis; (81716) cardiomyopathy (except that caused by tuberculosis or sexually transmitted disease) Peripheral and visceral Peripheral vascular Active 12-10-2016 - [facility] atherosclerosis disease, unspecified (441 95) 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 Unclassified Unknown / UNK(Unknown) Active 04-26-2017 - [facility] (42681) Unclassified SUMMARY [facility] Unclassified Patient encounter Active 06-06-2013 - [facility] status (62434) Unclassified No current problems or Active [facility] disability Sports Medicine and Orthopaedics (4 4691) Past or Other Problems Category Problem Name Status Date Location Gastrointestinal Rectal hemorrhage Completed 05-14-2015 - [facility] hemorrhage (54695) Other connective tissue Arthrodesis status Completed 03-19-2017 - [facility] disease Sports Medicine and Orthopaedics (4 4691) Other non-traumatic Sacroiliac disorder Completed 08-19-2018 - [facility] joint disorders (38532) Other non-traumatic Ankle pain Completed 03-19-2017 - [facility] joint disorders Sports Medic ine and Orthopaedics (4 4691) Other non-traumatic Hip pain Completed 11-20-2011 - [facility] joint disorders (49814) Pneumonia (except that Community acquired Completed 01-17-2016 - [facility] caused by tuberculosis pneumonia (4419 5) or sexually transmitted disease) Residual codes; Pain in buttock Completed 08-19-2018 - [facility] unclassified (05044) Superficial injury; Contusion of left Completed 09-28-2018 - [facility] contusion hip, initial (41906) encounter Results Result Name Value Range Unit Interpretation Flag Date Location No panel information on 2020-04-17 AV Delay Adaptive Paced 350 ms 2019 [facility] Minimum (ms) (03360) AV Delay Adaptive Sensed 325 ms 04-17 [facility] Minimum (ms) (47348) Battery Voltage 2.96 V 04-17-2020 [facility] (00540) BLANK _ 04-17-[address] [facility] (69843) Danny RA Pacing 2 V 04-17-2020 [facility] Amplitude (volts) (4 4195) Danny RA Pacing Polarity BI 04-17 [facility] (28075) Danny RA Sensing 0.5 mV 04-17-2020 [facility] Amplitude (mvolts) ( 02909) Danny RA Sensing BI 04-17-2020 [facility] Polarity (95213) Danny RV Pacing 2.5 V 04-17-2020 [facility] Amplitude (volts) (4 4195) Danny RV Pacing Polarity BI 04-17 [facility] (22675) Danny RV Sensing 0.5 mV 04-17-2020 [facility] Amplitude (mvolts) ( 96703) Danny RV Sensing BI 04-17-2020 [facility] Polarity (42261) Detection Configuration 1 - Zone 2019 [facility] (Vent) (51945) ICD FastVT DISABLED 04-17-2020 [facility] DetectionStatus (441 95) ICD-AMS EPISODES 180 {beats}/min 04-17-2020 [facility] (19862) ICD-ATP Episodes (Vent) 0 2019 [facility] (74382) ICD-Device Mfg STJ 04-17-2020 [facility] (96410) ICD-LEADIMPEDANCEATRIAL 290 ohm 2019 [facility] (19022) ICD-Percent Pacing 1.6 % 04-17-2020 [facility] (Atrial) (37938) ICD-Percent Pacing 46 % 04-17-2020 [facility] (Vent) (91218) ICD-Shocks Aborted 0 04-17-2020 [facility] (Vent) (46589) UFK-DFGWJK-YKMXNNNSC 0 0 [facility] (16331) ICD-SHOCKSABORTED 0 04-17-2020 [facility] (66613) ICD-SHOCKSDELIVEREDVENTR 0 04-17 [facility] ICULAR (96302) Implant Date 02/09/2017 04-17-2020 [facility] (61397) Implant Date 04/02/2009 04-17-2020 [facility] (54803) Lead Impedance (RV) 390 ohm 04-17-2020 [facility] (93273) Lead Impedance High 45 ohm 04-17-2020 [facility] Voltage (25428) Lead1 Mfg . [facility] 04-17-2020 [facility] (89326) Lead2 Mfg . [facility] 04-17-2020 [facility] (23466) Location RV 04-17-2020 [facility] (63656) Location RA 04-17-2020 [facility] (29502) Lower Rate (bpm) 50 {beats}/min 04-17-2020 [facility] (64346) Max Sensor Rate (bpm) 105 {beats}/min 2019 [facility] (65424) MDT_PROG_TACHY_ZONE_DETE ENABLED 04-17 [facility] CTIONS_STATUS (69912 ) Model 1699TC OptiSense 04-17-2020 [facility] (48732) Model 2357-40Q Fortify 04-17-2020 [facility] Jignesh HERBERT (36698) Model 7121Q Durata SJ4 04-17-2020 [facility] (08944) Pacing Mode DDD 04-17-2020 [facility] (06816) Serial Number [id number] 04-17-2020 [facility] (73118) Serial Number [id number] 04-17-2020 [facility] (47755) Serial Number [id number] 04-17-2020 [facility] (16912) Test Charge Energy 40 J 04-17-2020 [facility] (34418) Test Charge Time 9.1 s 04-17-2020 [facility] (71748) Therapy Status (Vent) Enabled 04-17-20 20 [facility] (39133) Thresh RA Capture 1 V 04-17-2020 [facility] Amplitude (volts) (4 3495) Thresh RA Capture 0.5 ms 04-17-2020 [facility] Duration (ms) (02831 ) Thresh RA Sensing 1.5 mV 04-17-2020 [facility] Amplitude (mvolts) ( 97329) Thresh RV Capture 1.25 V 04-17-2020 [facility] Amplitude (VOLTS) (4 4195) Thresh RV Capture 0.5 ms 04-17-2020 [facility] Duration (MS) (15108 ) Thresh RV Sensing 12 mV 04-17-2020 [facility] Amplitude (MVOLTS) ( 99602) Tracking Rate (bpm) 95 {beats}/min 04-17-20 [facility] (32810) VF Zone Detection 320 ms 04-17-2020 [facility] Interval (08257) VF Zone Therapy 0 ATP(s) + 6 04-17-2020 [facility] Configuration Shock(s) (10886 ) No panel information on 2020-04-16 [facility] (86805) progress on 2020-01 PROGRESS HNO ID: [id number] Normal 01-29-2020 [facility] Author: Kristie Hitchcock [place] ([id number]) Service: ? Author Type: Nurse Practitioner Type: [...] cycles completed 01/08/2016. Patient pr esented to [facility] on 01/15/2016 with complaints of co ugh, increasing shortness of breath and wheezing. Found to have a n elevation of troponin and was admitted and started on Lasix. He was then transferred to the [facility]. He underwent a left heart catheterization which [...] necessary for today's visit. ? Kristie Hitchcock APRN.CORNICE UPHOLSTERER ? cnovsp on 2020-01-11 0 CNOVSP Visit (SP) Office (NASEEM) Normal [place] [facility] DARRELL CORONEL ([id number]) 1940 M [place] Date Time Provider Department (27695) 01/29/20 10:30 AM KRISTIE HITCHCOCK During your visit today, we recorded the following informati on about you: Temperature Pulse Blood pressure Weight 97.7 degrees 57/minute 125/68 73.5 kg Kristie Hitchcock, MICHEL.CORNICE UPHOLSTERER 01/29/2020 2:44 PM Signed Chief Complaint Patient [...] x9 cycles completed . Patient presented to [facility] on 01/15/2016 with complaints o f cough, increasing shortness of breath and wheezing. Amy d to have an elevation of troponin and was admitted and started on Lasix. He was then transferred to the main [facility]. He underwent a left heart catheterization [...] necessary for today's visit. ? Kristie Hitchcock APRN.CORNICE UPHOLSTERER ? Meenu Verma LPN 01/29/2020 10:32 AM Signed Est patient. Six month OV. 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] Order(s):CT ABD/PEL W IVCON [5914313] Order #: [id number] FU TURE CT CHEST W IVCON [[id number]] Order #: [id number] FUTURE iv contrast (will be provided with [...] EachRfl: 0 CREATININE BLD [SQCRET] Order #: [id number] FUTURE Follow-up and Disposition History Recorded Prescriptions [...] ankle [M10.9] 06/18/2015 Coronary artery disease involving pilot station watson*06/18/2015 S/P CABG (coronary artery bypass graft) [...] Verma LPN Encounter Status:Closed by KRISTIE HITCHCOCK CORNICE UPHOLSTERER on 01/29/20 cea on 2020-01-29 CEA 1.0 0.0-2.9 ng/mL Normal 01-29-2020 [facility] (07453) Comment: Result Comment: Test analyze d by the Wilian DxI method. Performed By: #### CEA ####C [facility] [place], [place] [phone] progress on 2019-12 PROGRESS HNO ID: [id number] Normal 01-01-2020 [facility] Author: Alexis Craft [place] ([id number]) Service: ? Author Type: Physician Type: Progress Notes Filed: 01/01/2020 1:59 PM Note Text: Alexis Craft MD Interventional Cardiology [address] [place] [address] Chief Complaint Patient presents with: Heart Problem Cardiology follow up HISTORY OF PRESENT ILLNESS: Mr. Coronel is a 79 year old male seen today in follow-up t here are extensive cardiac history in the past history of bypass surg joby for severe three-vessel coronary artery disease in 2005 with 5 vessel b ypass graft done at the [facility] patient has severe LV syst [...] IJ port - S PACK PHACO 30K [id number] Left - SKIN BX, 1 LESION 07/30/14 [...] Medications Medication Sig Dispense Refill - Ipratropium Ripton (ATROVENT) 0.03 % nasal spray Use 2 [...] was partially created using a dictation recog StartMeion software. A reasonable attempt has been made to correct any errors. ecg complete on ECG COMPLETE NAME : DARRELL CORONEL Normal [facility] PID : [id number] Kyle scales ([id number]) : 1940 Gender : Male Race : ORD : [id number] Procedure Date : Jan 01 2020 13:10:37 [...] ms QTC Calculation(Bazett) : 440 ms P Yale : 71 degrees R Yale : -33 degrees T Yale : 43 degrees Test Reason : Location : 189 : WOASC Overread By : SANDRA DANG M.D. Edited By : SANDRA DANG M.D. Referred By : ALEXIS CRAFT Acquired by : nathan canales cnov on 2020-01-01 CNOV Office Visit (STACY) Normal 01-01-[address] [place] [address] [facility] DARRELL CORONEL ([id number]) 1940 [facility] Date Time Provider Department (79118) 01/01/20 1:00 PM ALEXIS CRAFT During your visit today, we recorded the following informati on about you: Pulse Respiration Blood pressure Weight 62/minute 16/minute 112/62 72.6 kg Alexis Craft MD 01/01/2020 1:59 PM Signed Alexis Craft MD Interventional Cardiology [address] [place] [address] Chief Complaint Patient presents with: Heart Problem Cardiology follow up HISTORY OF PRESENT ILLNESS: Mr. Coronel is a 79 year old male seen today in follow-up there are extensive cardiac history in the past history of bypass torres rgery for severe three-vessel coronary artery disease in 2005 with 5 vessel bypass graft done at the [facility] patient has severe LV systolic [...] FIVE 08/27/05 - COLONOSCOP W/ OR W/O [facility] SPEC 06-25-15 - COLONS W/REM POLYP HT BX 09/04/2016 - ICD (ICD) 03/19/06 and 04/03/09 - LAP COLECTOMY W COLOPROCTOST 07-17-15 - LAPAROSCOPIC CHOLEYCYSTECTOMY 08/12/2013 - PAST SURGICAL HISTORY OF 1993 and 1994 calcium deposits removed left ankle - REMOVAL MISSY VAD W PORT/PUMP Right 12/18/2016 Removal right IJ port - S PACK PHACO 30K [id number] Left - SKIN BX, 1 LESION 07/30/14 [...] Medications Medication Sig Dispense Refill - Ipratropium Ripton (ATROVENT) 0.03 % nasal spray Us e [...] The above note was partially created usi [email or web address] dictation recognition software. A reasonable attempt has been made to correct any errors. Referring Provider: SELF [200] Allergies As of Date: 01/01/2020 Noted Allergy Reaction LEVAQUIN (LEVOFLOXACIN) 08/14/2005 7 - Swelling KALEIGH INHIBITORS 09/03/2010 3 - Cough Date Reviewed: 01/01/2020 Reviewed by: Alexis Craft - Fully Assessed Reason for Visit: Heart Problem [54] Primary Visit Diagnosis:NSTEMI (non-ST elevated myocar dial infarction) ([facility]) [I21.4] Other Visit Diagnosis:Paroxysmal atrial fibrillation ([facility]) [ I48.0] Order(s):ECG COMPLETE [ECG01] Order #: [id number] FUTURE EKG [3633638] Order #: [id number] Prescriptions as of 01/01/2020 Sig: IPRATROPIUM BROMIDE [...] ankle [M10.9] 06/18/2015 Coronary artery disease involving pilot station watson*06/18/2015 S/P CABG (coronary artery bypass graft) [...] on 2019-12-12 EDER Telephone (QUINTON) Normal 12-12-2019 [facility] DARRELL CORONEL ([id number]) 1940 [facility] Date Time Provider Department (33211) 12/12/19 [place] HERNÁNDEZ During your visit today, [...] Cough Date Reviewed: 08/16/2019 Reviewed by: Rachelle ([facility]) [place] - Fully Assessed Reason for Visit: Question [6990] Cmt: MRI Prescriptions as of 12/12/2019 Sig: [...] ankle [M10.9] 06/18/2015 Coronary artery disease involving pilot station watson*06/18/2015 S/P CABG (coronary artery bypass graft) [...] Encounter Status:Closed by KELLIE GONZALEZ [facility]12/[facility] Normal 12-12-2019 [facility] DARRELL CORONEL ([id number]) 1940 M (14412) Date Time Provider Department 12/12/19 RACHELLE AGUILAR ([facility]) [facility] During your visit today, we recorded the following informati on about you: Rachelle Aguilar APRN.CORNICE UPHOLSTERER 12/12/2019 9:37 AM Signed 9:36 AM Rec'd [...] questions or concerns . Rachelle Aguilar DNP, SENIOR PRODUCT MANAGER, NP_C Allergies As of Date: 12/12/2019 Noted Allergy Reaction LEVAQUIN (LEVOFLOXACIN) 08/14/2005 7 - Swelling KALEIGH INHIBITORS 09/03/2010 3 - Cough Date Reviewed: 08/16/2019 [facility]: [facility] [place] - Fully Assessed Reason for Visit: Question [2888] Prescriptions as of 12/12/2019 Sig: IPRATROPIUM BROMIDE [...] ankle [M10.9] 06/18/2015 Coronary artery disease involving pilot station watson*06/18/2015 S/P CABG (coronary artery bypass graft) [...] 12/12/19 progress on 2019-08 PROGRESS HNO ID: [id number] Normal 08-16-2019 [facility] Author: Rachelle Aguilar ([id number]) Service: ? Author Type: Nurse Practitioner Type: Progress Notes Filed: 08/16/2019 12:47 PM Note Text: [facility] [place] [facility] Heart Failure Clinic OUTPATIENT VISIT DATE [...] at this time. [place] of [place] with his and his dog. Has 5 sons. Advanced directives h ave been completed and are scanned into [address]. SOB: No Fatigue: No Orthopnea:No PND: No [...] FIVE 08/27/05 - COLONOSCOP W/ OR W/O [facility] SPEC 06-25-15 - COLONS W/REM POLYP HT BX 09/04/2016 - ICD (ICD) 03/19/06 and 04/03/09 - LAP COLECTOMY W COLOPROCTOST 07-17-15 - LAPAROSCOPIC CHOLEYCYSTECTOMY 08/12/2013 - PAST SURGICAL HISTORY OF 1993 and 1994 calcium deposits removed left ankle - REMOVAL MISSY VAD W PORT/PUMP Right 12/18/2016 Removal right IJ port - S PACK PHACO 30K [id number] Left - SKIN BX, 1 LESION 07/30/14 [...] will, both of which are scanned into [address] 7. Provided pt with all contact information [...] PM cnov on 2019-08-16 CNOV Office Visit ([facility]) Normal 08-16-19 [place] [facility] DARRELL CORONEL ([id number]) 1940 M ([id number]) Date Time Provider Department 08/16/19 11:00 AM RACHELLE AGUILAR (SKIP) [facility] During your visit today, we recorded the following informati on about you: Pulse Blood pressure Weight 54/minute 125/64 76.8 kg Rachelle Aguilar APRN.CNP 08/16/2019 12:47 PM Signed Heart [facility] [place] [facility] Heart Failure Clinic OUTPATIENT VISIT DATE [...] at this time. He lives [place] with his and his dog. Has 5 sons. Advanced direc tives have been completed and are scanned into [address]. SOB: No Fatigue: No Orthopnea:No PND: No [...] IJ port - S PACK PHACO 30K [id number] Left - SKIN BX, 1 LESION 07/30/14 [...] will, both of which are scanned into [facility] [address] 7. Provided pt with all contact information [...] me at . Referring Provider: SPRING HERNÁNDEZ [[id number]] Allergies As of Date: 08/16/2019 Noted Allergy Reaction LEVAQUIN (LEVOFLOXACIN) 08/14/2005 7 - Swelling KALEIGH INHIBITORS 09/03/2010 3 - Cough Date Reviewed: 08/16/2019 Reviewed by: Rachelle (Skip) Zenobia - Fully Assessed Reason for Visit: New Patient [172] Establish Care [42] Primary Visit Diagnosis:Chronic systolic heart failure (HCC) [I50.22] Other Visit Diagnoses:Coronary artery disease involving carmelo ve coronary artery of pilot station heart without angina pectoris [I25.10] Essential hypertension, benign [I10] Hyperlipidemia, unspecified hyperlipidemia type [E78.5] PAF (paroxysmal atrial fibrillation) ([facility]) [I48.0] ICD (implantable cardioverter-defibrillator) in place [Z95.810] Order(s):Ipratropium Ripton (ATROVENT) 0.03 % n jasvir sprayUse 2 [...] ankle [M10.9] 06/18/2015 Coronary artery disease involving pilot station watson*06/18/2015 S/P CABG (coronary artery bypass graft) [...] or concern, you can call me at [phone]. Prescriptions ordered this encounter Disp Refills Start End IPRATROPIUM BROMIDE 0.03 % NASAL SPR* 08/16/2019 Class: Med Update Route: NASAL Sig: Use 2 Sprays in the nose once daily. Level of Service: NEW PATIENT VISIT LEVEL 3 [[id number]] Encounter Status:Closed by RACHELLE AGUILAR CNP on 08/16/19 progress on 2019-07 PROGRESS HNO ID: [id number] Normal 07-27-2019 [facility] Author: Kristie Guerin ([id number]) Service: ? Author Type: Nurse Practitioner Type: [...] cycles completed 01/08/2016. Patient pr esented to [facility] on 01/15/2016 with complaints of co ugh, increasing shortness of breath and wheezing. Found to have a n elevation of troponin and was admitted and started on Lasix. He was then transferred to the main [facility]. He underwent a left heart catheterization [...] Mayorga. Will have report sc anned into [facility]. - ?CT chest/abd/pelvis due in one year. - ?Follow up in 6?months with CEA-pending today's CEA. - ?Pt. aware to call office with any questions/concerns. ? ? The patient indicates understanding of these issues and agre es with the plan. ? ? ? CLIF Acuna on 2019-07-12 6 GÓMEZOVS Visit (SP) Office (NASEEM) Normal [facility] TONEYDARRELL HERNANDEZ Sascha ([id number]) 1940 M [place] Date Time Provider Department ([id number]) 07/27/19 9:30 AM KRISTIE HITCHCOCK During your [...] x9 cycles completed . Patient presented to [facility] on 01/15/2016 with complaints o f cough, increasing shortness of breath and wheezing. Foun d to have an elevation of troponin and was admitted and started on Lasix. He was then transferred to the [facility]. He underwent a left heart catheterization [...] Mayorga. Will have rep ort scanned into [facility]. - ?CT chest/abd/pelvis due in one year. - ?Follow up in 6?months with CEA-pending today's CEA. - ?Pt. aware to call office with any questions/concerns. ? ? The patient indicates understanding of these iss ues and agrees with the plan. ? ? ? Kristie Hitchcock, SENIOR PRODUCT MANAGER.CORNICE UPHOLSTERER Referring Provider: KRISTIE HITCHCOCK [[id number]] Allergies As of Date: 07/27/2019 Noted Allergy [...] ankle [M10.9] 06/18/2015 Coronary artery disease involving pilot station watson*06/18/2015 S/P CABG (coronary artery bypass graft) [...] [S70.02XA] 09/28/2018 Encounter Status:Closed by KRISTIE HITCHCOCK CORNICE UPHOLSTERER on 07/27/19 cea on 2019-07-27 CEA 1.3 0.0-2.9 ng/mL Normal 07-27-2019 [facility] ([id number]) Comment: Result Comment: Test analyze d by the Wilian DxI method. Performed By: #### CEA #### [facility] [address] [id number] progress on 2019-07 PROGRESS HNO ID: [id number] Normal 07-18-2019 [facility] Author: Juana ([facility]) Ed Ferrara [facility] ([id number]) Service: ? Author Type: Citizen Participation Specialist Type: Progress Notes Filed: 07/18/2019 12:17 PM [...] * *Final Report* * * Normal 2019 [facility] IVCON DATE OF EXAM: Jul 18 2019 11:56AM [place] ([id number]) [facility] 0539 - CT CHEST W IVCON [...] lung nodules. Stable borderline RIGHT hilar adenopathy. Check Services Clerk: PSCB Transcribe Date/Time: Jul 18 2019 1:49P Dictated by : JORDAN MCKEON MD This examination was interpreted and the report reviewed and electronically signed by: JORDAN MCKEON MD on Jul 18 2019 1:58PM EST [id number] ct abd/pel w ivcon on 2019-07-18 CT ABD/PEL W * * *Final Report* * * Normal [facility] IVCON DATE OF EXAM: Jul 18 2019 11:56AM [place] ([id number]) [facility] 0530 - CT ABD/PEL W IVCON [...] pelvis. Stable LEFT adrenal nodule likely adenoma. Check Services Clerk: KRISTEN Transcribe Date/Time: Jul 18 2019 1:39P Dictated by : JORDAN MCKEON MD This examination was interpreted and the report reviewed and electronically signed by: JORDAN MCKEON MD on Jul 18 2019 1:46PM EST [id number] creatinine on 07-18 Creatinine [Mass/Vol] 0.85 0.73-1.22 mg/dL Normal 07-18-19 [facility] ([id number]) Creatinine [Mass/Vol] >60 Normal 07-18-19 [facility] ([id number]) Comment: Result Comment: eGFR (Estima obed GFR) [...] GFR. progress on 2019-06 PROGRESS HNO ID: [id number] Normal 07-03-2019 [facility] Author: Spring Hernández, [place] ([id number]) Service: ? Author Type: Physician Type: Progress Notes Filed: 07/03/2019 12:47 PM Note Text: [facility] SECTION OF [facility] CARDIOLOGY [facility] OUTPATIENT VISIT DATE July 03, 2019 PRIMARY CARE PHYSICIAN: Van Barfield MD ([facility]) [address] [place] [address] HISTORY OF PRESENT ILLNESS: Mr. Coronel is [...] IJ port - S PACK PHACO 30K [id number] Left - SKIN BX, 1 LESION 07/30/14 [...] DO, FACC, FAC Clinical and Preventive Cardiology [facility] cnov on 2019-07-03 CNOV Office Visit (QUINTON) Normal 07-03-20 [place] Jessica DARRELL CORONEL Sascha ([id number]) 1940 M [place] Date Time Provider Department ([id number]) 07/03/19 11:40 AM SPRING HERNÁNDEZ During your visit today, we recorded the following informati on about you: Pulse Blood pressure Weight Height 57/minute 112/56 77.1 kg 1.588 m Spring Hernández DO, DO 07/03/2019 12:47 PM Signed [facility] SECTION OF [facility] CARDIOLOGY [facility] OUTPATIENT VISIT DATE July 03, 2019 PRIMARY CARE PHYSICIAN: Van Barfield MD ([facility]) [address] [place] [address] HISTORY OF PRESENT ILLNESS: Mr. Coronel is [...] FIVE 08/27/05 - COLONOSCOP W/ OR W/O [facility] SPEC 06-25-15 - COLONS W/REM POLYP HT BX 09/04/2016 - ICD (ICD) 03/19/06 and 04/03/09 - LAP COLECTOMY W COLOPROCTOST 07-17-15 - LAPAROSCOPIC CHOLEYCYSTECTOMY 08/12/2013 - PAST SURGICAL HISTORY OF 1993 and 1994 calcium deposits removed left ankle - REMOVAL MISSY VAD W PORT/PUMP Right 12/18/2016 Removal right IJ port - S PACK PHACO 30K [id number] Left - SKIN BX, 1 LESION 07/30/14 [...] by mouth twice daily. Spring Hernández DO, [facility] Clinical and Preventive Cardiology [facility] Referring Provider: SPRING HERNÁNDEZ [[id number]] Allergies As of Date: 07/03/2019 Noted Allergy Reaction LEVAQUIN (LEVOFLOXACIN) 08/14/2005 7 - Swelling KALEIGH INHIBITORS 09/03/2010 3 - Cough Date Reviewed: 07/03/2019 Reviewed by: Spirng Hernández DO - Fully Assessed Reason for Visit: CARD Follow Up 6 Month [1231] Cmt: no issues Primary Visit Diagnosis:Coronary artery disease involving na tive coronary artery of pilot station heart without angina pectoris [I25.10] Other Visit [...] tabletRfl: 3 CONSULT TO CHRONIC CARE (EU,FV,HL,LK,SANDRA,ME,MM,SP) [[id number]] Order #: [id number]: 1 Prescriptions as of 07/03/2019 Sig: PRAVASTATIN [...] ankle [M10.9] 06/18/2015 Coronary artery disease involving pilot station watson*06/18/2015 S/P CABG (coronary artery bypass graft) [...] obsolete on 2018-06 OBSOLETE Refill Normal 06-17-2018 [facility] (AGCARDWST) DARRELL CROONEL ([id number]) 1940 M Date Time Provider Griseejihv66/7/18 LEVAR GUSMAN AGCARDWST During your Medical visit today, we recorded the following information about you:Allergies As of Date: 06/17/2018 Noted Allergy Center ReactionLEVAQUIN (LEVOFLOXAC IN) 08/14/2005 7 - SwellingACE INHIBITORS 09/03/2010 3 - CoughDate Reviewed: ([id number]) 12/29/2017Reviewed by: Abby Chicas RN - Fully [...] [M10.9] INVALID FOR* Coronary artery disease involving pilot station watson*INVALID FOR* S /P CABG (coronary artery [...] [facility] Sports (procedure) Medicine [facility] Orthopaedi [facility] ([id number]) Tobacco smoking Never Invalid 03-19-2017 - [facility] Medical status NHIS Interpretation Code 03-19-20 17 [facility] ([id number]) Tobacco use CPHS Never Invalid 03-19-2017 - [facility] smoker Interpretation Code 03-19-2017 [facility] (43512) Vital Signs Vital Sign Description Value / Unit Date Location The following section is limited to 5 en tries per type and includes entries from the following time range: 20200417 - 7. Heart rate 0.5 ms 04-17-2020 [facility] ([id number]) Encounters Date Type Reason Provider Location 12-27-2017 Ambulatory LEVAR GUSMAN Facility:DECLEMENTE GUSMAN [facility] 04-26-2017 - Ambulatory [facility]ros[facility] 04-26-2017 disease of pilot station IMCA GENERAL ME DICAL coronary artery without CENT ER angina pectoris 04-16-2020 - Follow-up Angelito Hamilton c 04-16-2020 encounter 04-16-2020 ICD Remote F/U Angelito Nguyen Guerin Cli beryl Department 04-16-2020 - Patient encounter [facility] Provider [facility] 04-16-2020 procedure 04-16-2020 Results Only [facility] Provider [place] [facility] Department Procedures Procedure Name Date Provider Location CARDIAC DATA AND REPORT 04-16-2020 [facility] ([id number]) ICD REMOTE CHECK 04-16-2020 Angelito Nguyen Gueringregg Hamilton c ([id number]) Plan of Treatment Plan Description Date Location LIPID SCREEN LIPID SCREEN 12-23-2022 - [facility] 12-23-2022 ([id number]) DIABETES SCREEN DIABETES SCREEN 06-29-2021 - [facility] 06-29-2021 ([id number]) BP CONTROLLED (<130/80) BP CONTROLLED (<130/80) 01-28-2021 - [facility] 01-28-2021 ([id number]) INFLUENZA (#1) INFLUENZA (#1) 2020 - [facility] 03-12-2020 (77005) LDL CHOLESTEROL LDL CHOLESTEROL 12-23-2018 - [facility] 12-23-2018 (11274) COLORECTAL CANCER COLORECTAL CANCER 09-04-2017 - [facility] SCREENING,SEE MODIFIER SCREENING,SEE MODIFIER 09-04-2017 ([id number] [phone]) Appointment Appointment 03-19-2017 - [facility] [place] [facility] 03-19-2017 Sports Medicine and Orthopaedics ([phone]) ADVANCE DIRECTIVE ADVANCE DIRECTIVE 10-21-2016 - [facility] DISCUSSION DISCUSSION 10-21-2016 ([id number]) SHINGRIX VACCINE (1 of SHINGRIX VACCINE (1 of 1991 - [facility] 2) 2) 1991 (15976) DTAP,TDAP,TD (1 - Tdap) DTAP,TDAP,TD (1 - Tdap) 02-28-1960 - [facility] 02-28-1960 (68786) ANNUAL PCP TEAM CHRONIC ANNUAL PCP TEAM CHRONIC 1959 - [facility] DISEASE VISIT DISEASE VISIT 1959 (68982) no information [facility] ([id number]) no information [facility] [place] [facility] Orthopa[facility] (44 [phone]) Immunizations Vaccine Notes Status Date Location Influenza Vaccine, influenza virus (completed) 04-03-2009 - [facility] Split-Non Spec vaccine, unspecified 04-03-2009 (4419 5) formulation Pneumovax pneumococcal ([facility], 04-17-2015 (441 95) 23 valent TD Adult tetanus and diphtheria (completed) 01-20-2011 - [facility] toxoids, adsorbed, 01-20-2011 (21838) preservative free, for adult use (2 Lf of tetanus toxoid and 2 Lf of diphtheria toxoid) Payers Payer Name Policy Number Location [employer] MEDICARE [id number] [facility] (44 195) [employer]ET[employer] MEDICARE PPO [id number] [facility] ([id number]) The following information is from the original human readable contentNo Payer Records FoundNo Payer Records FoundNo Payer Records FoundNo Payer Records FoundNo Payer Records Found Social History Type Social History Date Location Description Tobacco smoking status Never smoker 01-29-2020 - [facility] NHIS 01-29-2020 (73243) Tobacco use and Never used 01-29-2020 - [facility] exposure 01-29-2020 (47895) Alcohol intake Current non-drinker of 01-29-2020 [facility] alcohol (finding) 01-29-2020 (79241) Sex Assigned At Male [facility] (59257) The following information is from the original human readable contentNo Social History Records FoundNo Social History Records FoundNo Social History Records FoundNo Social History Records FoundNo Social History Records FoundNo Social History Records FoundNo Social History Records Found Medical Equipment Equipment Code (if Equipment Original Equipment Procedure Code D ates provided) Text (if provided) Identifier (if (if provided) provided) Weo-Th-K-Kind Implant [id number]_[facility] 2011 - [id number] Lbv-Tn-Z-Kind Implant 364462_[facility] 2011 - [id number] Shell Actb 58mm Prim [id number]_[facility] 012 Sb Hmsphr - [id number] Head Fem -4mm 28mm 364479_[facility] 2 Cocr Lfit V - [id number] Stem Fem Nk Acld Tmzf 364480_[facility] 2011 3 Hip - [id number] Port Powerport Mri [id number]_[facility] 6 6fr Polyurethane Implantable Infusion Slim Catheter - [id number] Summary Purpose Family History No Family History Records FoundNo Family History Records FoundNo Family History Records FoundNo Family History Records Found Advance Directives Documents on File Type Date Recorded 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 [facility] provides no warranty or guarantee of the accuracy or completeness of information in this document. UNRECOGNIZED CONTENT PROVIDED BELOW FOR UNRECOGNIZED SECTION No Status Records FoundNo Status Records FoundNo Status Records FoundNo Status Records Found UNRECOGNIZED CONTENT PROVIDED BELOW FOR UNRECOGNIZED SECTION INFORMATION SOURCE DATE CREATED AUTHOR AUTHOR'S ORGANIZATIO N 01/04/2018 [facility] DATE CREATED AUTHOR AUTHOR'S ORGANIZATIO N 06/21/2018 [facility] DATE CREATED AUTHOR AUTHOR'S ORGANIZATIO N 12/12/2019 [facility] DATE CREATED AUTHOR AUTHOR'S ORGANIZATIO N 02/03/2020 [facility] UNRECOGNIZED CONTENT PROVIDED BELOW FOR UNRECOGNIZED SECTION Source Comments In the event this information is protected by the Federal Confidentiality of Alcohol and Drug Abuse Patient Records regulations: The Federal rules restrict any use of the information to criminally investigate or prosecute any alcohol or drug abuse patient.[facility] the event this information is protected by the Federal Confidentiality of Alcohol and Drug Abuse Patient Records regulations: The Federal rules restrict any use of the information to criminally investigate or prosecute any alcohol or drug abuse patient.[facility] UNRECOGNIZED CONTENT PROVIDED BELOW FOR UNRECOGNIZED SECTION Procedure Notes Angelito Nguyen MD - 04/17/2020 2:05 PM EDTAssociated Order(s): CARDIAC DATA AND REPORTDUAL LEAD ICD REMOTE EVALUATION: PRESENTING EGM: /TOOLROOM CHECKER BATTERY STATUS: Normal with no significant depletion, [...]
== END 2019-12-15 13:36 | disposition home or self-care (01) ==
PROVIDERS: Emergency Provider Emergency Medicine; PCP Family Medicine
DX: R33.9 Retention of urine, unspecified (principal); I48.91 Unspecified atrial fibrillation; I11.0 Hypertensive heart disease with heart failure; I50.9 Heart failure, unspecified; I25.10 Atherosclerotic heart disease of native coronary artery without angina pectoris; E78.5 Hyperlipidemia, unspecified; Z85.038 Personal history of other malignant neoplasm of large intestine; Z79.01 Long term (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 of 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; Z79.82 Long term (current) use of aspirin; Z79.899 Other long term (current) drug therapy
CPT/HCPCS: 36415; 51702; 80048; 81001; 85025; 85610; 99283; A4216

== ENCOUNTER → 2019-12-21 08:48 | Outpatient (CLI) | payer MEDICARE, SELFPAY ==
[2019-12-15 10:03] VITALS: BMI 29.0
[2019-12-21 09:21] LABS: Hematocrit 38.7 % (40-54); Hemoglobin 12.7 g/dL (13.0-16.5); Mean Corp Hgb Conc 32.8 g/dL (32-36); Mean Corpuscular Hgb 31.9 pg (27.0-32.0); Mean Corpuscular Volume 97.2 fL (80-94); Mean Platelet Vol. 10.5 fl (6.2-12.0); Platelet Count 170 K/mm3 (150-450); RBC Distribution Width CV 13.7 % (11.6-14.6); RBC Distribution Width SD 48.1 fl (35.1-43.9); Red Blood Count 3.98 M/mm3 (4.6-6.2); White Blood Count 10.9 K/mm3 (4.4-11.0)
[2019-12-21 09:49] LABS: Anion Gap 5 (5-15); BUN 17 mg/dL (7-18); BUN/Creat Ratio 20.6 RATIO (10-20); Calcium,Total 8.9 mg/dL (8.5-10.1); Chloride 106 mmol/L (98-107); Creatinine, Serum 0.83 mg/dL (0.70-1.30); EST Glomerular Filtration Rate 96 mL/min (>60); Est Glom Filt Rate - Afr Amer 116 mL/min (>60); Glucose 113 mg/dL (74-106); PSA,Total- Diagnostic 4.23 ng/mL (0.0-4.0); Potassium 3.5 mmol/L (3.5-5.1); Sodium Level 140 mmol/L (136-145)
[2019-12-21 09:53] LABS: Cholesterol 159 mg/dL (200); High Density Lipoprotein 36 mg/dL; Triglycerides 109 mg/dL; Very Low Density Lipoprotein 22 mg/dL (5-40)
--- OUTSIDE RECORDS SUMMARY | 2020-04-28 11:33 | XMS RPT_ITS | CCD ---
:1940 External Reference #:[id number] Author Organization [facility] Care Team Providers Name Role Phone Julio Cesar Cesilia Unavailable Sascha Mckeon Unavailable NASEEM Unavailable Unavailable IMCA Unavailable Unavailable NASEEM Unavailable Unavailable NASEEM Unavailable Unavailable Marc Barfield Primary Care Provider Patrick Unavailable Allergies Reported Allergen Reaction(s) Severity Date of Onset Location Angiotensin Cough 09-03-2010 - [facility] Converting Enzyme System Rep ository ([place]) Inhibitors Translations: [ KALEIGH INHIBITORS] levoFLOXacin Moderate, 07-08-[address] - [facility] ([place], [place]) ter Moderate Sports Medicine and Orthopaedics (5 4915) levoFLOXacin Swelling High 08-14-2005 - [facility] Translations: [ System Repos itory LEVOFLOXACIN] Medications Medication Name Sig Date Prescriber Location Ascorbic Acid ascorbic acid, vitamin C, Ccf Provider [facility] (63809) (VITAMIN C) 500 mg tablet Take 500 mg by mouth once daily. 0 Active Comment: Take 500 mg by mouth once da kristofer. aspirin BABY ASPIRIN 81 MG CHEW 07-08-2011 [facility] ASPIRIN [id number] Medicine and Orthopaedics Dianne Alaniz (43925) aspirin 81 mg chewable tablet Ccf Provider [facility] Sports Medicine Take 81 mg by mouth once daily. 0 and Orthopaedics (48797) Active Comment: Take 81 mg by mouth once torin ly. carvedilol carvedilol (COREG) 25 07-03-[address] [facility] mg tablet Take 1 [facility] Sports Medi cine and tablet by mouth twice Orthop aedics (47478) daily. 180 tablet 3 07/03/2019 Active COREG 25 MG TABS 07-08-2011 [facility] CARVEDILOL [id number] Dianne luis Orthopaedics (01415) Katty Comment: Take 1 tablet by mouth twice daily. clonazePAM CLONAZEPAM 0.5 MG TABS 07-08-2011 [facility] Sports CLONAZEPAM Medici ne and Orthopaedics [id number] Dianne Alaniz ( 10794) Comment: Take 0.5 mg by mouth three t imes daily. digoxin digoxin (LANOXIN) 125 07-03-[address] [facility] mcg (0.125 mg) tablet [facility] Sports Medicine and Take 1 tablet by mouth Ortho paedics (02551) once daily. 90 tablet 3 07/03/2019 Active DIGOXIN TABS DIGOXIN TABS 07-08-2011 [facility] [id number] Dianne Alaniz and O rthopaedics (52100) DIGOXIN TABS DIGOXIN TABS 07-08-2011 [facility] [id number] Dianne Alaniz and O rthopaedics (41562) DIGOXIN TABS DIGOXIN TABS 07-08-2011 [facility] [id number] Dianne Alaniz and O rthopaedics (43512) Comment: Take 1 tablet by mouth once daily. fluticasone FLONASE 50 MCG/ACT SUSP 07-08-2011 - 03-19-2017 [facility] Sports Medicine and FLUTICASONE PROPIONATE Ortho paedics (64357) [id number] Alyson Harrell FLONASE 50 MCG/ACT SUSP 07-08-2011 [facility] FLUTICASONE Medicine and Orthopaedics PROPIONATE [id number] Dianne Buckner (4 4691) Katty FLONASE 50 MCG/ACT SUSP 07-08-2011 - 03-19-2017 [facility] Sports Medicine a nd Orthopaedics FLUTICASONE PROPIONATE (56444) [id number] Alyson Harrell FLONASE 50 MCG/ACT SUSP 07-08-2011 [facility] Sports FLUTICASONE Medicine and Orthopaedics PROPIONATE [id number] Dianne M (4 4691) Stuartagley FLONASE 50 MCG/ACT SUSP 07-08-2011 [facility] Sports FLUTICASONE Medicine and Orthopaedics PROPIONATE [id number] Dianne M (4 4691) Stuartaglvicenta furosemide furosemide (LASIX) 40 07-03-2019 [facility] mg tablet Take 1 [facility] cine and tablet by mouth once Orthopa edics (69356) daily. 90 tablet 3 07/03/2019 Active FUROSEMIDE TABS 07-08-2011 [facility] FUROSEMIDE TABS [id number] Dianne M and Orthopaedics (96045) Yeagley FUROSEMIDE TABS 07-08-2011 [facility] FUROSEMIDE TABS [id number] Dianne M and Orthopaedics (88809) Yeagley FUROSEMIDE TABS 07-08-2011 [facility] FUROSEMIDE TABS [id number] Dianne M and Orthopaedics (53257) Katty Comment: Take 1 tablet by mouth once daily. Ipratropium Ipratropium [place] 08-16-2019 Rachelle ([facility]) [facility] (ATROVENT) 0.03 % [facility] (68808) nasal spray Use 2 Sprays in the nose once daily. 0 08/16/2019 Active Comment: Use 2 Sprays in the nose onc e daily. losartan losartan (COZAAR) 100 07-03-2019 [facility] mg tablet Take 1 [facility] and tablet by mouth once Orthopa edics (59108) daily. 90 tablet 3 07/03/2019 Active COZAAR 50 MG TABS 07-08-2011 [facility] LOSARTAN POTASSIUM [id number] Dianne and Orthopaedics (05932) Sita Alaniz Comment: Take 1 tablet by mouth once daily. multivitamin tablet multivitamin tablet Take 1 [facility] tablet by mouth once daily. (32946) 0 Active multivitamin tablet Take 1 tablet by mouth [facility]cf P [facility] (40488) once daily. 0 Active Comment: Take 1 tablet by mouth once daily. niacin NIACIN 500 MG TABS 07-08-2011 [facility] NIACIN Sports Med icine and [id number] Dianne Buckner Orthopaed [facility] (72342) Yeagley Potassium Chloride potassium chloride 07-03-2019 [facility] (KLOR-CON 10) 10 mEq Vito (64996) tablet Indications: Essential hypertension Take 1 tablet by mouth once daily. 90 tablet 3 07/03/2019 Active Comment: Take 1 tablet by mouth once daily. tamsulosin tamsulosin ER (FLOMAX) 0.4 mg Take Ccf [facility] (97166) 0.4 mg by mouth daily at bedtime. 0 Active Comment: Take 0.4 mg by mouth daily a t bedtime. warfarin COUMADIN 3 MG TABS 03-19-2017 [facility] Sports WARFARIN SODIUM [id number] Medicine and Orthopaedics Alyson Harrell (24787 ) Problems Active Problems Category Problem Name Status Date Location Acute cerebrovascular Cerebrovascular Active 06-18-2015 - [facility] disease accident (85342) Acute myocardial Myocardial infarction Active 01-15-2016 - [facility] infarction (69402) Cancer of colon Malignant tumor of Active 07-02-2015 - [facility] colon (88045) Cardiac dysrhythmias Atrial fibrillation Active 06-18-2015 - [facility] (53260) Conduction disorders Automatic implantable Active 02-28-2008 - [facility] cardiac defibrillator (32368 ) in situ Coronary Atherosclerotic heart Active 06-18-2015 - [facility] atherosclerosis and disease of [place] Sys tem (36239) other heart disease coronary artery without angina pectoris Disorders of lipid Dyslipidemia Active 11-16-2008 - [facility] metabolism (66475) Essential hypertension Essential hypertension Active 07-01-[address] [place] [address] (52345) Gout and other crystal Gout Active 07-01-2005 - [facility] arthropathies (23411) Heart valve disorders Mitral valve disorder Active 07-01-2005 - [facility] (91249) Osteoarthritis Degenerative joint Active 07-01-2005 - [facility] disease of ankle AND/OR Spor ts Medicine and foot Orthopaedics (4 0820) Other and ill-defined Acute ill-defined Active 07-01-2005 - [facility] cerebrovascular disease cerebrovascular disease (35581) 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 - [facility] disease arthroplasty (15119) Keren-; endo-; 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 - [facility] myocarditis; (48710) cardiomyopathy (except that caused by tuberculosis or sexually transmitted disease) Peripheral and visceral Peripheral vascular Active 12-10-2016 - [facility] atherosclerosis disease, unspecified (441 95) 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 (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 Unclassified Unknown / UNK(Unknown) Active 04-26-2017 - [facility] (99496) Unclassified SUMMARY Active [facility]-17-2016 [facility] (24772) Unclassified Patient encounter Active 06-06-2013 - [facility] status (19413) Unclassified No current problems or Active [facility] disability Sports Medicine and Orthopaedics (4 4691) Past or Other Problems Category Problem Name Status Date Location Gastrointestinal Rectal hemorrhage Completed 05-14-2015 - [facility] hemorrhage (32129) Other connective tissue Arthrodesis status Completed 03-19-2017 - [facility] disease Sports Medicine and Orthopaedics (4 4691) Other non-traumatic Sacroiliac disorder Completed 08-19-2018 - [facility] joint disorders (83250) Other non-traumatic Ankle pain Completed 03-19-2017 - [facility] joint disorders Sports Medic ine and Orthopaedics (4 4691) Other non-traumatic Hip pain Completed 11-20-2011 - [facility] joint disorders (63503) Pneumonia (except that Community acquired Completed 01-17-2016 - [facility] caused by tuberculosis pneumonia (4419 5) or sexually transmitted disease) Residual codes; Pain in buttock Completed 08-19-2018 - [facility] unclassified (43214) Superficial injury; Contusion of left Completed 09-28-2018 - [facility] contusion hip, initial (72160) encounter Results Result Name Value Range Unit Interpretation Flag Date Location No panel information on 2020-04-17 AV Delay Adaptive Paced 350 ms 2019 [facility] Minimum (ms) (69416) AV Delay Adaptive Sensed 325 ms 04-17 [facility] Minimum (ms) (27172) Battery Voltage 2.96 V 04-17-2020 [facility] (08812) BLANK _ 04-17-2020 [facility] (78066) Danny RA Pacing 2 V 04-17-2020 [facility] Amplitude (volts) (4 4195) Danny RA Pacing Polarity BI 04-17 [facility] (73706) Danny RA Sensing 0.5 mV 04-17-2020 [facility] Amplitude (mvolts) ( 45356) Danny RA Sensing BI 04-17-2020 [facility] Polarity (79382) Danny RV Pacing 2.5 V 04-17-2020 [facility] Amplitude (volts) (4 4195) Danny RV Pacing Polarity BI 04-17 [facility] (43229) Danny RV Sensing 0.5 mV 04-17-2020 [facility] Amplitude (mvolts) ( 14256) Danny RV Sensing BI 04-17-2020 [facility] Polarity (15518) Detection Configuration 1 - Zone 2019 [facility] (Vent) (16127) ICD FastVT DISABLED 04-17-2020 [facility] DetectionStatus (441 95) ICD-AMS EPISODES 180 {beats}/min 04-17-2020 [facility] (09614) ICD-ATP Episodes (Vent) 0 2019 [facility] (09631) ICD-Device Mfg STJ 04-17-[address] [facility] (90982) ICD-LEADIMPEDANCEATRIAL 290 ohm 2019 [facility] (59309) ICD-Percent Pacing 1.6 % 04-17-2020 [facility] (Atrial) (37966) ICD-Percent Pacing 46 % 04-17-2020 [facility] (Vent) (42081) ICD-Shocks Aborted 0 04-17-2020 [facility] (Vent) (78523) TVH-ZQPRUH-HUNQCASAP 0 0 [facility] (73072) ICD-SHOCKSABORTED 0 04-17-2020 [facility] (85268) ICD-SHOCKSDELIVEREDVENTR 0 04-17 [facility] ICULAR (81012) Implant Date 02/09/2017 04-17-2020 [facility] (10585) Implant Date 04/02/2009 04-17-2020 [facility] (21357) Lead Impedance (RV) 390 ohm 04-17-2020 [facility] (28808) Lead Impedance High 45 ohm 04-17-2020 [facility] Voltage (98409) Lead1 [facility]fg . [facility] 04-17-2020 [facility] (58014) Lead2 Mfg . [facility] 04-17-2020 [facility] (82539) Location RV 04-17-2020 [facility] (84553) Location RA 04-17-2020 [facility] (05140) Lower Rate (bpm) 50 {beats}/min 04-17-2020 [facility] (25133) Max Sensor Rate (bpm) 105 {beats}/min 2019 [facility] (90337) MDT_PROG_TACHY_ZONE_DETE ENABLED 04-17 [facility] CTIONS_STATUS (58881 ) Model 1699TC OptiSense 04-17-2020 [facility] (60459) Model 2357-40Q Fortify 04-17-2020 [facility] Jignesh HERBERT (43541) Model 7121Q Durata SJ4 04-17-2020 [facility] (94053) Pacing Mode DDD 04-17-2020 [facility] (90120) Serial Number [id number] 04-17-2020 [facility] (80636) Serial Number [id number] 04-17-2020 [facility] (81082) Serial Number [id number] 04-17-2020 [facility] (40716) Test Charge Energy 40 J 04-17-2020 [facility] (53408) Test Charge Time 9.1 s 04-17-2020 [facility] (70697) Therapy Status (Vent) Enabled 04-17-20 20 [facility] (53364) Thresh RA Capture 1 V 04-17-2020 [facility] Amplitude (volts) (4 8315) Thresh RA Capture 0.5 ms 04-17-2020 [facility] Duration (ms) (02448 ) Thresh RA Sensing 1.5 mV 04-17-2020 [facility] Amplitude (mvolts) ( 46685) Thresh RV Capture 1.25 V 04-17-2020 [facility] Amplitude (VOLTS) (4 4195) Thresh RV Capture 0.5 ms 04-17-2020 [facility] Duration (MS) (59979 ) Thresh RV Sensing 12 mV 04-17-2020 [facility] Amplitude (MVOLTS) ( 72351) Tracking Rate (bpm) 95 {beats}/min 04-17-20 [facility] (41687) VF Zone Detection 320 ms 04-17-2020 [facility] Interval (84810) VF Zone Therapy 0 ATP(s) + 6 04-17-2020 [facility] Configuration Shock(s) (00669 ) No panel information on 2020-04-16 [facility] (89017) progress on 2020-01 PROGRESS HNO ID: [id number] Normal 01-29-2020 [facility] Author: Kristie Hitchcock [place] ([id number]) Service: ? Author Type: Nurse Practitioner Type: [...] cycles completed 01/08/2016. Patient pr esented to [facility] on 01/15/2016 with complaints of co ugh, increasing shortness of breath and wheezing. Found to have a n elevation of troponin and was admitted and started on Lasix. He was then transferred to the [facility]. He underwent a left heart catheterization [...] necessary for today's visit. ? Kristie Hitchcock APRN.LINE STAKER ? cnovsp on 2020-01-11 0 CNOVSP Visit (SP) Office (NASEEM) Normal [place] [facility] DARRELL CORONEL ([id number]) 1940 M [place] Date Time Provider Department (22155) 01/29/20 10:30 AM KRISTIE HITCHCOCK During your visit today, we recorded the following informati on about you: Temperature Pulse Blood pressure Weight 97.7 degrees 57/minute 125/68 73.5 kg Kristie Hitchcock, MICHEL.LINE STAKER 01/29/2020 2:44 PM Signed Chief Complaint Patient [...] x9 cycles completed . Patient presented to [facility] on 01/15/2016 with complaints o f cough, increasing shortness of breath and wheezing. Amy d to have an elevation of troponin and was admitted and started on Lasix. He was then transferred to the main [facility]. He underwent a left heart catheterization [...] necessary for today's visit. ? Kristie Hitchcock APRN.LINE STAKER ? Meenu Verma LPN 01/29/2020 10:32 AM Signed Est patient. Six month OV. 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 - Cardiac Rachel*06/06/2013 Rectal bleeding [K62.5] 05/14/2015 Gout of ankle [M10.9] 06/18/2015 Coronary artery disease involving nanwalek watson*06/18/2015 S/P CABG (coronary artery bypass graft) [...] Verma LPN Encounter Status:Closed by KRISTIE HITCHCOCK LINE STAKER on 01/29/20 cea on 2020-01-29 CEA 1.0 0.0-2.9 ng/mL Normal 01-29-2020 [facility] (29007) Comment: Result Comment: Test analyze d by the Wilian DxI method. Performed By: #### CEA ####C [facility] [place], [place] [phone] progress on 2019-12 PROGRESS HNO ID: [id number] Normal 01-01-2020 [facility] Author: Alexis Craft [place] ([id number]) Service: ? Author Type: Physician Type: Progress Notes Filed: 01/01/2020 1:59 PM Note Text: Alexis Craft MD Interventional Cardiology [address] [place] [address] Chief Complaint Patient presents with: Heart Problem Cardiology follow up HISTORY OF PRESENT ILLNESS: Mr. Coronel is a 79 year old male seen today in follow-up t here are extensive cardiac history in the past history of bypass surg joby for severe three-vessel coronary artery disease in 2005 with 5 vessel b ypass graft done at the [facility] patient has severe LV syst olic dysfunction [...] IJ port - S PACK PHACO 30K [id number] Left - SKIN BX, 1 LESION 07/30/14 [...] Medications Medication Sig Dispense Refill - Ipratropium [place] (ATROVENT) 0.03 % nasal spray Use 2 [...] was partially created using a dictation recog [employer] software. A reasonable attempt has been made to correct any errors. ecg complete on ECG COMPLETE NAME : DARRELL CORONEL [facility] PID : [id number] Kyle scales ([id number]) : 1940 Gender : Male Race : ORD : [id number] Procedure Date : Jan 01 2020 13:10:37 [...] ms QTC Calculation(Bazett) : 440 ms P [place] : 71 degrees R [place] : -33 degrees T [place] : 43 degrees Test Reason : Location : 189 : WOASC Overread By : SANDRA DANG M.D. Edited By : SANDRA DANG M.D. Referred By : ALEXIS CRAFT Acquired by : nathan canales cnov on 2020-01-01 CNOV Office Visit (STACY) Normal 01-01-[address] [place] [address] [facility] DARRELL CORONEL ([id number]) 1940 [facility] Date Time Provider Department (24714) 01/01/20 1:00 PM ALEXIS CRAFT During your visit today, we recorded the following informati on about you: Pulse Respiration Blood pressure Weight 62/minute 16/minute 112/62 72.6 kg Alexis Craft MD 01/01/2020 1:59 PM Signed Alexis Craft MD Interventional Cardiology [address] [place] [address] Chief Complaint Patient presents with: Heart Problem Cardiology follow up HISTORY OF PRESENT ILLNESS: Mr. Coronel is a 79 year old male seen today in follow-up there are extensive cardiac history in the past history of bypass torres rgery for severe three-vessel coronary artery disease in 2005 with 5 vessel bypass graft done at the [facility] patient has severe LV systolic dysfunction with [...] FIVE 08/27/05 - COLONOSCOP W/ OR W/O [facility] SPEC 06-25-15 - COLONS W/REM POLYP HT BX 09/04/2016 - ICD (ICD) 03/19/06 and 04/03/09 - LAP COLECTOMY W COLOPROCTOST 07-17-15 - LAPAROSCOPIC CHOLEYCYSTECTOMY 08/12/2013 - PAST SURGICAL HISTORY OF 1993 and 1994 calcium deposits removed left ankle - REMOVAL MISSY VAD W PORT/PUMP Right 12/18/2016 Removal right IJ port - S PACK PHACO 30K [id number] Left - SKIN BX, 1 LESION 07/30/14 [...] Medications Medication Sig Dispense Refill - Ipratropium [place] (ATROVENT) 0.03 % nasal spray Us e [...] The above note was partially created usi mPort dictation recognition software. A reasonable attempt has been made to correct any errors. Referring Provider: SELF [200] Allergies As of Date: 01/01/2020 Noted Allergy Reaction LEVAQUIN (LEVOFLOXACIN) 08/14/2005 7 - Swelling KALEIGH INHIBITORS 09/03/2010 3 - Cough Date Reviewed: 01/01/2020 Reviewed by: Alexis Craft - Fully Assessed Reason for Visit: Heart Problem [54] Primary Visit Diagnosis:NSTEMI (non-ST elevated myocar dial infarction) ([facility]) [I21.4] Other Visit Diagnosis:Paroxysmal atrial fibrillation ([facility]) [ I48.0] Order(s):ECG COMPLETE [ECG01] Order #: [id number] FUTURE EKG [9907761] Order #: [id number] Prescriptions as of 01/01/2020 Sig: IPRATROPIUM BROMIDE [...] ankle [M10.9] 06/18/2015 Coronary artery disease involving nanwalek watson*06/18/2015 S/P CABG (coronary artery bypass graft) [...] on 2019-12-12 EDER Telephone ([place]INT[place]) Normal 12-12-2019 [place] [facility] DARRELL CORONEL ([id number]) 1940 [facility] Date Time Provider Department (57118) 12/12/19 [place] [facility] During your visit today, [...] Cough Date Reviewed: 08/16/2019 Reviewed by: Rachelle ([facility]) [place] - Fully Assessed Reason for Visit: Question [9840] Cmt: MRI Prescriptions as of 12/12/2019 Sig: [...] ankle [M10.9] 06/18/2015 Coronary artery disease involving nanwalek watson*06/18/2015 S/P CABG (coronary artery bypass graft) [...] Encounter Status:Closed by KELLIE GONZALEZ on 12/12/19 [facility] Normal 12-12-2019 [facility] DARRELL CORONEL ([id number]) 1940 M ([id number]) Date Time Provider Department 12/12/19 RACHELLE AGUILAR ([facility]) [facility] During your visit today, we recorded the following informati on about you: Rachelle Aguilar APRN.LINE STAKER 12/12/2019 9:37 AM Signed 9:36 AM Rec'd [...] questions or concerns . Rachelle Aguilar DNP, MANAGER DRUG SAFETY, NP_C Allergies As of Date: 12/12/2019 Noted Allergy Reaction LEVAQUIN (LEVOFLOXACIN) 08/14/2005 7 - Swelling KALEIGH INHIBITORS 09/03/2010 3 - Cough Date Reviewed: 08/16/2019 Reviewed by: [facility]le [facility] [place] - Fully Assessed Reason for Visit: Question [1431] Prescriptions as of 12/12/2019 Sig: IPRATROPIUM BROMIDE [...] ankle [M10.9] 06/18/2015 Coronary artery disease involving nanwalek watson*06/18/2015 S/P CABG (coronary artery bypass graft) [...] 12/12/19 progress on 2019-08 PROGRESS HNO ID: [id number] Normal 08-16-2019 [facility] Author: Rachelle Aguilar ([id number]) Service: ? Author Type: Nurse Practitioner Type: Progress Notes Filed: 08/16/2019 12:47 PM Note Text: Heart and Vascular [place] [facility] Heart Failure Clinic OUTPATIENT VISIT [...] at this time. [place] with his and his dog. Has 5 sons. Advanced directives h ave been completed and are scanned into [employer]. SOB: No Fatigue: No Orthopnea:No PND: No [...] FIVE 08/27/05 - COLONOSCOP W/ OR W/O [facility] SPEC 06-25-15 - COLONS W/REM POLYP HT BX 09/04/2016 - ICD (ICD) 03/19/06 and 04/03/09 - LAP COLECTOMY W COLOPROCTOST 07-17-15 - LAPAROSCOPIC CHOLEYCYSTECTOMY 08/12/2013 - PAST SURGICAL HISTORY OF 1993 and 1994 calcium deposits removed left ankle - REMOVAL MISSY VAD W PORT/PUMP Right 12/18/2016 Removal right IJ port - S PACK PHACO 30K [id number] Left - SKIN BX, 1 LESION 07/30/14 [...] will, both of which are scanned into [employer].. 7. Provided pt with all contact information [...] PM cnov on 2019-08-16 CNOV Office Visit ([facility]) Normal 08-16-19 [facility] DARRELL CORONEL ([id number]) 1940 M ([id number]) Date Time Provider Department 08/16/19 11:00 AM RACHELLE AGUILAR (SKIP) [facility] During your visit today, we recorded the following informati on about you: Pulse Blood pressure Weight 54/minute 125/64 76.8 kg Rachelle Aguilar APRN.CNP 08/16/2019 12:47 PM Signed Heart and Vascular [place] [facility] Heart Failure Clinic OUTPATIENT VISIT [...] at this time. [place] with his and his dog. Has 5 sons. Advanced direc tives have been completed and are scanned into [employer]. SOB: No Fatigue: No Orthopnea:No PND: No [...] IJ port - S PACK PHACO 30K [id number] Left - SKIN BX, 1 LESION 07/30/14 [...] will, both of which are scanned into [employer].. 7. Provided pt with all contact information [...] or concern, you can call me at [phone]. Referring Provider: SPRING HERNÁNDEZ [[id number]] Allergies As of Date: 08/16/2019 Noted Allergy Reaction LEVAQUIN (LEVOFLOXACIN) 08/14/2005 7 - Swelling KALEIGH INHIBITORS 09/03/2010 3 - Cough Date Reviewed: 08/16/2019 Reviewed by: Rachelle (Skip) Zenobia - Fully Assessed Reason for Visit: New Patient [172] Establish Care [42] Primary Visit Diagnosis:Chronic systolic heart failure (HCC) [I50.22] Other Visit Diagnoses:Coronary artery disease involving carmelo ve coronary artery of [place] heart without angina pectoris [I25.10] Essential hypertension, benign [I10] Hyperlipidemia, unspecified hyperlipidemia type [E78.5] PAF (paroxysmal atrial fibrillation) ([facility]) [I48.0] ICD (implantable cardioverter-defibrillator) in place [Z95.810] Order(s):Ipratropium [place] (ATROVENT) 0.03 % n jasvir sprayUse 2 [...] ankle [M10.9] 06/18/2015 Coronary artery disease involving nanw[place]k watson*06/18/2015 S/P CABG (coronary artery bypass graft) [...] or concern, you can call me at [phone]. Prescriptions ordered this encounter Disp Refills Start End IPRATROPIUM BROMIDE 0.03 % NASAL SPR* 08/16/2019 Class: Med Update Route: NASAL Sig: Use 2 Sprays in the nose once daily. Level of Service: NEW PATIENT VISIT LEVEL 3 [[id number]] Encounter Status:Closed by RACHELLE AGUILAR CNP on 08/16/19 progress on 2019-07 PROGRESS HNO ID: [id number] Normal 07-27-2019 [facility] Author: Kristie Guerin ([id number]) Service: ? Author Type: Nurse Practitioner Type: [...] cycles completed 01/08/2016. Patient pr esented to [facility] on 01/15/2016 with complaints of co ugh, increasing shortness of breath and wheezing. Found to have a n elevation of troponin and was admitted and started on Lasix. He was then transferred to the main [facility]. He underwent a left heart [...] Mayorga. Will have report sc anned into [facility]. - ?CT chest/abd/pelvis due in one year. - ?Follow up in 6?months with CEA-pending today's CEA. - ?Pt. aware to call office with any questions/concerns. ? ? The patient indicates understanding of these issues and agre es with the plan. ? ? ? CLIF Acuna on 2019-07-12 6 GÓMEZOVS Visit (SP) Office (NASEEM) Normal [place] [facility] TONEYDARRELL HERNANDEZ Sascha ([id number]) 1940 M [place] Date Time Provider Department ([id number]) 07/27/19 9:30 AM KRISTIE HITCHCOCK During your [...] x9 cycles completed . Patient presented to [facility] on 01/15/2016 with complaints o f cough, increasing shortness of breath and wheezing. Foun d to have an elevation of troponin and was admitted and started on Lasix. He was then transferred to the [facility]. He underwent a left heart catheterization [...] Mayorga. Will have rep ort scanned into [facility]. - ?CT chest/abd/pelvis due in one year. - ?Follow up in 6?months with CEA-pending today's CEA. - ?Pt. aware to call office with any questions/concerns. ? ? The patient indicates understanding of these iss ues and agrees with the plan. ? ? ? Kristie Hitchcock, MANAGER DRUG SAFETY.LINE STAKER Referring Provider: KRISTIE HITCHCOCK [[id number]] Allergies As of Date: 07/27/2019 Noted Allergy [...] ankle [M10.9] 06/18/2015 Coronary artery disease involving nanwalek watson*06/18/2015 S/P CABG (coronary artery bypass graft) [...] [S70.02XA] 09/28/2018 Encounter Status:Closed by KRISTIE HITCHCOCK LINE STAKER on 07/27/19 cea on 2019-07-27 CEA 1.3 0.0-2.9 ng/mL Normal 07-27-2019 [facility] ([id number]) Comment: Result Comment: Test analyze d by the Wilian DxI method. Performed By: #### CEA #### [facility] [address] [id number] progress on 2019-07 PROGRESS HNO ID: [id number] Normal 07-18-2019 [facility] Author: Juana ([facility]) Ed Ferrara [facility] ([id number]) Service: ? Author Type: Central Control Room Operator Type: Progress Notes Filed: 07/18/2019 12:17 [...] DATE OF EXAM: Jul 18 2019 11:56AM [place] ([id number]) [facility] 0539 - CT CHEST W [...] lung nodules. Stable borderline RIGHT hilar adenopathy. Customer Response Representative: PSCB Transcribe Date/Time: Jul 18 2019 1:49P Dictated by : JORDAN MCKEON MD This examination was interpreted and the report reviewed and electronically signed by: JORDAN MCKEON MD on Jul 18 2019 1:58PM EST [id number] ct abd/pel w ivcon on 2019-07-18 CT ABD/PEL W * * *Final Report* * * Normal [facility] IVCON DATE OF EXAM: Jul 18 2019 11:56AM [place] ([id number]) [facility] 0530 - CT ABD/PEL W [...] pelvis. Stable LEFT adrenal nodule likely adenoma. Customer Response Representative: KRISTEN Transcribe Date/Time: Jul 18 2019 1:39P Dictated by : JORDAN MCKEON MD This examination was interpreted and the report reviewed and electronically signed by: JORDAN MCKEON MD on Jul 18 2019 1:46PM EST [id number] creatinine on 07-18 Creatinine [Mass/Vol] 0.85 0.73-1.22 mg/dL Normal 07-18-19 [facility] ([id number]) Creatinine [Mass/Vol] >60 Normal 07-18-19 [facility] ([id number]) Comment: Result Comment: eGFR (Estima obed GFR) [...] GFR. progress on 2019-06 PROGRESS HNO ID: [id number] Normal 07-03-2019 [facility] Author: Spring Hernández, [place] ([id number]) Service: ? Author Type: Physician Type: Progress Notes Filed: 07/03/2019 12:47 PM Note Text: [facility] SECTION OF [facility] CARDIOLOGY [facility] OUTPATIENT VISIT DATE July 03, 2019 PRIMARY CARE PHYSICIAN: Van Barfield MD ([facility]) [address] [place] [address] HISTORY OF PRESENT ILLNESS: Mr. Coronel is [...] IJ port - S PACK PHACO 30K [id number] Left - SKIN BX, 1 LESION 07/30/14 [...] DO, FACC, FAC Clinical and Preventive Cardiology [facility] cnov on 2019-07-03 CNOV Office Visit (QUINTON) Normal 07-03-20 [place] Jessica DARRELL CORONEL Sascha ([id number]) 1940 M [place] Date Time Provider Department ([id number]) 07/03/19 11:40 AM SPRING HERNÁNDEZ During your visit today, we recorded the following informati on about you: Pulse Blood pressure Weight Height 57/minute 112/56 77.1 kg 1.588 m Spring Hernández DO, DO 07/03/2019 12:47 PM Signed [facility] SECTION OF [facility] CARDIOLOGY [facility] OUTPATIENT VISIT DATE July 03, 2019 PRIMARY CARE PHYSICIAN: Van Barfield MD ([facility]) [address] [place] [address] HISTORY OF PRESENT ILLNESS: Mr. Coronel is [...] FIVE 08/27/05 - COLONOSCOP W/ OR W/O [facility] SPEC 06-25-15 - COLONS W/REM POLYP HT BX 09/04/2016 - ICD (ICD) 03/19/06 and 04/03/09 - LAP COLECTOMY W COLOPROCTOST 07-17-15 - LAPAROSCOPIC CHOLEYCYSTECTOMY 08/12/2013 - PAST SURGICAL HISTORY OF 1993 and 1994 calcium deposits removed left ankle - REMOVAL MISSY VAD W PORT/PUMP Right 12/18/2016 Removal right IJ port - S PACK PHACO 30K [id number] Left - SKIN BX, 1 LESION 07/30/14 [...] by mouth twice daily. Spring Hernández DO, [facility], [facility] Clinical and Preventive Cardiology [facility] Referring Provider: SPRING HERNÁNDEZ [[id number]] Allergies As of Date: 07/03/2019 Noted Allergy Reaction LEVAQUIN (LEVOFLOXACIN) 08/14/2005 7 - Swelling KALEIGH INHIBITORS 09/03/2010 3 - Cough Date Reviewed: 07/03/2019 Reviewed by: Spring Hernández DO - Fully Assessed Reason for Visit: CARD Follow Up 6 Month [1231] Cmt: no issues Primary Visit Diagnosis:Coronary artery disease involving na tive coronary artery of [place] heart without angina pectoris [I25.10] Other Visit [...] tabletRfl: 3 CONSULT TO CHRONIC CARE (EU,FV,HL,LK,SANDRA,ME,MM,SP) [[id number]] Order #: [id number]: 1 Prescriptions as of 07/03/2019 Sig: PRAVASTATIN [...] ankle [M10.9] 06/18/2015 Coronary artery disease involving nanwalek watson*06/18/2015 S/P CABG (coronary artery bypass graft) [...] Refill Normal 06-17-2018 [facility] (AGCARDW[facility]) DARRELL CORONEL ([id number]) 1940 M Date Time Provider Blkupvhhtc71/7/18 LEVAR GUSMAN AGCARDWST During your Medical visit today, we recorded the following information about you:Allergies As of Date: 06/17/2018 Noted [facility] Center ReactionLEVAQUIN (LEVOFLOXAC IN) 08/14/2005 7 - SwellingACE INHIBITORS 09/03/2010 3 - CoughDate Reviewed: ([id number]) 12/29/2017Reviewed by: Abby Chicas RN - Fully [...] 0* Take 500 mg by mouth once otrin* MULTIVITAMIN TABLET Take 1 tablet by mouth [...] [M10.9] INVALID FOR* Coronary artery disease involving nanw[place]k watson*INVALID FOR* S /P CABG (coronary artery [...] Center Sports (procedure) Medicine and Orthopaedi [facility] (65912) Tobacco smoking Never Invalid 03-19-2017 - [facility] Medical status NHIS Interpretation Code 03-19-20 17 [facility] (23164) Tobacco use CPHS Never Invalid 03-19-2017 - [facility] smoker Interpretation Code 03-19-2017 [facility] (06480) Vital Signs Vital Sign Description Value / Unit Date Location The following section is limited to 5 en tries per type and includes entries from the following time range: 20200417 - 7. Heart rate 0.5 ms 04-17-2020 [facility] ([id number]) Encounters Date Type Reason Provider Location 12-27-2017 Ambulatory LEVAR GUSMAN Facility:[facility] 04-26-2017 - Ambulatory [facility]ros[facility] 04-26-2017 disease of [place] [facility] DICAL coronary artery without CENT ER angina pectoris 04-16-2020 - Follow-up Angelito Hamilton c 04-16-2020 encounter 04-16-2020 ICD Remote F/U Angelito Nguyen Guerin Cli beryl Department 04-16-2020 - Patient encounter [facility] Provider [facility] 04-16-2020 procedure 04-16-2020 Results Only [facility] Provider [place] [facility] Department Procedures Procedure Name Date Provider Location CARDIAC DATA AND REPORT 04-16-2020 [facility] ([id number]) ICD REMOTE CHECK 04-16-2020 Angelito Nguyen Gueringregg Hamilton c ([id number]) Plan of Treatment Plan Description Date Location LIPID SCREEN LIPID SCREEN 12-23-2022 - [facility] 12-23-2022 ([id number]) DIABETES SCREEN DIABETES SCREEN 06-29-2021 - [facility] 06-29-2021 ([id number]) BP CONTROLLED (<130/80) BP CONTROLLED (<130/80) 01-28-2021 - [facility] 01-28-2021 ([id number]) INFLUENZA (#1) INFLUENZA (#1) 2020 - [facility] 03-12-2020 ([id number]) LDL CHOLESTEROL LDL CHOLESTEROL 12-23-2018 - [facility] 12-23-2018 ([id number]) COLORECTAL CANCER COLORECTAL CANCER 09-04-2017 - [facility] inic SCREENING,SEE MODIFIER SCREENING,SEE MODIFIER 09-04-2017 ([id number]) Appointment Appointment 03-19-2017 - [facility] er 03-19-2017 Sports Medicine and Orthopaedics ([phone]) ADVANCE DIRECTIVE ADVANCE DIRECTIVE 10-21-2016 - [facility] inic DISCUSSION DISCUSSION 10-21-2016 ([id number]) SHINGRIX VACCINE (1 of SHINGRIX VACCINE (1 of 1991 - [facility] 2) 2) 1991 (41277) DTAP,TDAP,TD (1 - Tdap) DTAP,TDAP,TD (1 - Tdap) 02-28-1960 - [facility] 02-28-1960 (07178) ANNUAL PCP TEAM CHRONIC ANNUAL PCP TEAM CHRONIC 1959 - [facility] DISEASE VISIT DISEASE VISIT 1959 (90960) no information [facility] ([id number]) no information [facility] er Sports Medicine and Orthopaedics (44 691) Immunizations Vaccine Notes Status Date Location Influenza Vaccine, influenza virus (completed) 04-03-2009 - [facility] Split-Non Spec vaccine, unspecified 04-03-2009 (4419 5) formulation Pneumovax pneumococcal (completed) [facility], 04-17-2015 (441 95) 23 valent TD Adult tetanus and diphtheria (completed) 01-20-2011 - [facility] toxoids, adsorbed, 01-20-2011 (45732) preservative free, for adult use (2 Lf of tetanus toxoid and 2 Lf of diphtheria toxoid) Payers Payer Name Policy Number Location [employer]ET[employer] MEDICARE [id number] [facility] (44 195) AETNA MEDICARE PPO [id number] [facility] ([id number]) The following information is from the original human readable contentNo Payer Records FoundNo Payer Records FoundNo Payer Records FoundNo Payer Records FoundNo Payer Records Found Social History Type Social History Date Location Description Tobacco smoking status Never smoker 01-29-2020 - [facility] NHIS 01-29-2020 (94070) Tobacco use and Never used 01-29-2020 - [facility] exposure 01-29-2020 (30600) Alcohol intake Current non-drinker of 01-29-2020 [facility] alcohol (finding) 01-29-2020 (87956) Sex Assigned At Male [facility] (25713) The following information is from the original human readable contentNo Social History Records FoundNo Social History Records FoundNo Social History Records FoundNo Social History Records FoundNo Social History Records FoundNo Social History Records FoundNo Social History Records Found Medical Equipment Equipment Code (if Equipment Original Equipment Procedure Code D ates provided) Text (if provided) Identifier (if (if provided) provided) Gwp-Kk-A-Kind Implant 364461_[facility] 2011 - [id number] Ogj-Vw-P-Kind Implant 364462_[facility] 2011 - [id number] Shell Actb 58mm Prim [id number]_[facility] 012 Sb Hmsphr - [id number] Head Fem -4mm 28mm 364479_[facility] 2 Cocr Lfit V - [id number] Stem Fem Nk Acld Tmzf 364480_[facility] 2011 3 Hip - [id number] Port Powerport Mri 1047001_[facility] 6 6fr Polyurethane Implantable Infusion Slim Catheter - [id number] Summary Purpose Family History No Family History Records FoundNo Family History Records FoundNo Family History Records FoundNo Family History Records Found Advance Directives Documents on File Type Date Recorded 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 [facility] provides no warranty or guarantee of the accuracy or completeness of information in this document. UNRECOGNIZED CONTENT PROVIDED BELOW FOR UNRECOGNIZED SECTION No Status Records FoundNo Status Records FoundNo Status Records FoundNo Status Records Found UNRECOGNIZED CONTENT PROVIDED BELOW FOR UNRECOGNIZED SECTION INFORMATION SOURCE DATE CREATED AUTHOR AUTHOR'S ORGANIZATIO N 01/04/2018 [facility] DATE CREATED AUTHOR AUTHOR'S ORGANIZATIO N 06/21/2018 [facility] DATE CREATED AUTHOR AUTHOR'S ORGANIZATIO N 12/12/2019 [facility] DATE CREATED AUTHOR AUTHOR'S ORGANIZATIO N 02/03/2020 [facility] UNRECOGNIZED CONTENT PROVIDED BELOW FOR [...] REPORTDUAL LEAD ICD REMOTE EVALUATION: PRESENTING EGM: /NANOTECHNOLOGIST BATTERY STATUS: Normal with no significant depletion, [...]
== END ==
PROVIDERS: PCP Family Medicine; Referring Provider Urology; Visit Provider Urology
DX: N40.1 Benign prostatic hyperplasia with lower urinary tract symptoms (principal); I48.91 Unspecified atrial fibrillation; I10 Essential (primary) hypertension
CPT/HCPCS: 36415; 80048; 80061; 84153; 85027

== ENCOUNTER 2020-09-24 12:00 | Outpatient (RCR) | payer MEDICARE, SELFPAY ==
--- NOTE | 2020-06-26 10:00 | HP.PTEVAL ---
Patient's Visit Information DARRELL PRIETO is a 80 year old M referred to Physical Therapy by Dr. Ghanshyam Wolfe MD with a diagnosis of CHRONIC BACK PAIN. Date of Evaluation: 06/26/20 Physical Therapist: Jinny Gutierrez PT, Cert MDT - Visit Plan Frequency: 2-3x /Week Duration: 4-6 Weeks Plan: *PACEMAKER*. AQUATIC THERAPY FOR PAIN RELIEF, POSTURE CORRECTION/STRENGTHENING, INSTRUCTION IN APPROPRIATE BODY MECHANICS AND ACTIVITY MODIFICATIONS. DLS STARTING WITH A NEUTRAL SPINE PROGRESSING ROM TOLERATED. MANAV LE ROM, STRETCHING AND STRENGTHENING. HEP INSTRUCTION. - Subjective Work/Leisure: RETIRED. Present symptoms: LOW BACK PAIN RIGHT > LEFT. PATIENT REPORTS DR. WOLFE ALSO TOLD HIM HIS SHOULDERS ARE REALLY TIGHT. RIGHT LE CRAMPING ONE NIGHT AND THEN HIS BACK STARTED HURTING MORE. Present since: ABOUT 2-3 WKS. Pain Scale: WORST 9/10, LEAST 2/10. Currently: 10/19. Commenced as a result of: NO APPARENT REASON. PATIENT REPORTS HE THINKS THE PAIN HIT WHEN HE WAS TRYING TO GET OUT OF BED. Symptoms at onset: LOW BACK. Worse: LIFTING, WALKING A LOT, CROSSING LEFT LEG OVER, TRYING TO GET A SOCK ON OR OFF REALLY PULLS IN LOW BACK. Better: HASN'T FOUND ANYTHING. Disturbed sleep: YES - JABBING PAIN IF MOVES THE WRONG WAY OR MOVES TOO QUICKLY. Previous history/Previous treatment: A COUPLE YEARS AGO TRIED TO LIFT THE PLATE SLITTER AND INSPECTOR DECK UP AND PULLED BACK. WAS TREATED WITH PHYSICAL THERAPY AND IT HELPED. YEARS AGO ALSO HAD CASSANDRA'S WITH DR. SMILEY - PATIENT DOES NOT THINK THEY REALLY HELPED HE CAN RE-CALL. NO BACK SURGERY. CHIROPRACTOR A LITTLE BIT A LONG TIME AGO. Treatment this episode: PICKED UP A PRESCRIPTION FOR MUSCLE RELAXER YESTERDAY. TOOK IT YESTERDAY AND STATES IT PUT HIM OUT. IT SEEMS TO HELP. Coughing/sneezing/straining: POSITIVE. Gait: PRETTY GOOD BUT THE PAIN IS SLOWING HIM DOWN SOME. Difficulty initiating urinatin: NO. Accidents: NO. Unexplained weight loss: NO. Imaging: NO X-RAYS THIS EPISODE OF BACK. 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 LEFT ANKLE HURTS ALL THE TIME. L HEEL SPUR - CONSTANT PAIN. *PACEMAKER/DEFIBULATOR*, HTN, 5 BIPASS HEART SURGERIES, COLON CA - TREATED WITH SURGERY AND CHEMO ABOUT 4 YEARS AGO. - Objective *PACEMAKER*. Sitting/Standing Posture: POOR IN SITTING AND STANDING. IN STANDING, RIGHT SHLD IS HIGHER THAN LEFT. ILIAC CRESTS ARE PRETTY LEVEL THOUGH. Lordosis: REDUCED. Lateral shift: NO. Relevant shift: N/A. Active Correction of posture: WORSE. Other Observations: SLOW ANTALGIC GAIT INDEP WITHOUT AD OR LOB. INDEP TRANSFER SIT TO STAND WITHOUT UE ASSIST BUT PULLS IN LOW BACK. Motor deficit: MANAV LE STRENGTH GROSSLY 4/5 WITH MMT'ING. LEFT ANKLE FUSION AND PAIN. MMT'ING OF MANVA HIPS CAUSES C/O PULLING IN LOW BACK. THIS PT PROCEEDED CAREFULLY WITH MMT'ING DUE TO MULTIPLE LE JOINT REPLACEMENTS AND ANKLE FUSIONN. Sensory deficit: ALTERED SENSATION OF LLE SINCE STROKE - REPORTS TINGLING WITH LIGHT TOUCH TESTING. ROM deficit: TIGHT MANAV HIP FLEXORS, HS'S AND GASTROC SOLEUS COMPLEX'S WITH LIMITED LEFT ANKLE ROM > RIGHT. Reflexes: NT. Dural Signs: POSITIVE MANAV LE'S. Lumbar mvmt loss: flex - NIL. ext - PATRICIA. R SG - PATRICIA. L SG - PATRICIA. PATIENT C/O INCREASED LBP WITH LUMBAR ROM TESTING ALL PLANES. Core strength: POOR. Palpation: NO ACUTE BACK TENDERNESS BUT THORACIC AND LUMBAR PARASPINALS ARE VERY TIGHT THROUGHOUT. TREATMENT: NEUROMUSCULAR REEDUCATION - RETRAINING OF MVMT AND POSTURE FOR SITTING, LYING AND STANDING ACTIVITIES. - Goals Goal 1:: DECREASE C/O LOW BACK PAIN Goal Time Frame: 4-6 Weeks Goal 2:: IMPROVE PERSONAL CARE, LIFTING, WALKING, SITTING, STANDING, SLEEP, SOCIAL LIFE, TRAVEL AND HOMEMAKING FUNCTION. Goal Time Frame: 4-6 Weeks Goal 3:: INSTRUCT IN PROPHYLAXIS Goal Time Frame: 4-6 Weeks - Anticipated Interventions Patient/Client Instruction: Educate patient on: Condition, Plan of Care, Risk Factors, Benefits of Fitness Program For the Purpose of:: To improve self management Therapeutic Exercise to Include: Strength training, Body mechanics, Postural training, Flexibilty training, Neuromotor development, In an aquatic setting, Dynamic Lumbar Stabilization For the Purpose of:: To decrease pain, To increase ROM, To improve muscle performance and motor function, To increase tolerance to activity/condition/position, To improve ability of physical actions for home/community/work/leisure Thank you for the opportunity to evaluate your patient. For Medicare and Medicare HMO plans, please review the plan of care and approve it. It will need to be FAXED BACK to us at [phone] for Medicare purposes. For Medicare only, by signing this I certify the plan of care. Please let me know if there are questions or concerns regarding this plan of care. Physician Signature: Date:
--- NOTE | 2020-07-19 13:31 | HP.PTREVAL_ITS ---
Dr. Ghanshyam Wolfe MD, It has been my pleasure to treat DARRELL PRIETO over the last 10 visits for CHRONIC BACK PAIN. Please see the progress note below for an update on the physical therapy plan of care! Subjective: PATIENT REPORTS HIS WALKING HAS IMPROVED AND USING HIS RIGHT LEG IS MORE FREE. HE REPORTS THE PAIN IS STILL THERE IN HIS BACK BUT IT HAS IMPROVED. HIS RIGHT HIP PAIN HAS IMPROVED TOO. FOLLOW UP PLANNED WITH DR. WOLFE 07/31/20 Objective/Function: PATIENT WAS SEEN TODAY FOR RE-ASSESSMENT OF PROGRESS TOWARD THE SET PT GOALS AND THE NEED FOR FURTHER PHYSICAL THERAPY VS READINESS FOR DISCHARGE. PATIENT IS MAKING SLOW PROGRESS WITH PT TOWARD ALL GOALS. RECOMMEND CONTINUED PT BASED ON PROGRESS MADE AND ROOM FOR FURTHER IMPROVEMENT. PATIENT AGREEABLE. UPON EXAM TODAY: SLOW ANTALGIC GAIT INDEP WITHOUT AD OR LOB. INDEP TRANSFER SIT TO STAND WITHOUT UE ASSIST BUT PATIENT C/O A LITTLE BIT OF PULLINIG IN LOW BACK. Motor deficit: MANAV LE STRENGTH GROSSLY 4/5 WITH MMT'ING. LEFT ANKLE FUSION AND PAIN. MMT'ING OF MANAV HIPS CAUSES C/O PULLING IN LOW BACK. THIS PT PROCEEDED CAREFULLY WITH MMT'ING DUE TO MULTIPLE LE JOINT REPLACEMENTS AND ANKLE FUSIONN. Sensory deficit: ALTERED SENSATION OF LLE SINCE STROKE - REPORTS TINGLING WITH LIGHT TOUCH TESTING. ROM deficit: TIGHT MANAV HIP FLEXORS, HS'S AND GASTROC SOLEUS COMPLEX'S WITH LIMITED LEFT ANKLE ROM > RIGHT. Reflexes: NT. Dural Signs: NEGATIVE MANAV LE'S. Lumbar mvmt loss: flex - NIL. ext - PATRICIA. R SG - PATRICIA. L SG - PATRICIA. PATIENT C/O INCREASED LBP WITH LUMBAR ROM TESTING ALL PLANES. Core strength: POOR. Palpation: NO ACUTE BACK TENDERNESS BUT THORACIC AND LUMBAR PARASPINALS ARE VERY TIGHT THROUGHOUT. PATIENT REPORTS HE HAS NOT BEEN TAKING THE MUSCLE RELAXERS PRESCRIBED BECAUSE OF THE WAY THEY MAKE HIM FEEL. Plan Plan: *PACEMAKER*. CONTINUE. AQUATIC THERAPY FOR PAIN RELIEF, POSTURE C ORRECTION/STRENGTHENING, INSTRUCTION IN APPROPRIATE BODY MECHANICS AND ACTIVITY MODIFICATIONS. DLS STARTING WITH A NEUTRAL SPINE PROGRESSING ROM TOLERATED. MANAV LE ROM, STRETCHING AND STRENGTHENING. HEP INSTRUCTION. Goals Goal 1:: DECREASE C/O LOW BACK PAIN Goal Time Frame: 4-6 Weeks Goal Progress: Progressing Goal 2:: IMPROVE PERSONAL CARE, LIFTING, WALKING, SITTING, STANDING, SLEEP, SOCIAL LIFE, TRAVEL AND HOMEMAKING FUNCTION. Goal Time Frame: 4-6 Weeks Goal Progress: Progressing Goal 3:: INSTRUCT IN PROPHYLAXIS Goal Time Frame: 4-6 Weeks Goal Progress: Progressing Anticipated Interventions Patient/Client Instruction: Educate patient on: Condition, Plan of Care, Risk Factors, Benefits of Fitness Program For the Purpose of:: To improve self management Therapeutic Exercise to Include: Strength training, Body mechanics, Postural training, Flexibilty training, Neuromotor development, In an aquatic setting, Dynamic Lumbar Stabilization For the Purpose of:: To decrease pain, To increase ROM, To improve muscle performance and motor function, To increase tolerance to activity/condition/position, To improve ability of physical actions for home/community/work/leisure Please do not hesitate to contact me at [phone] by phone or if you have questions or concerns regarding this new plan of care! Sincerely, Jinny Gutierrez, PT, Cert MDT
--- NOTE | 2020-08-22 13:28 | HP.PTREVAL_ITS ---
Dr. Ghanshyam Barfield MD, It has been my pleasure to treat DARRELL PRIETO over the last 20 visits for CHRONIC BACK PAIN. Please see the progress note below for an update on the physical therapy plan of care! Subjective: PATIENT REPORTS HIS BALANCE AND FLEXABILITY AND GOING UP AND DOWN STEPS HAS IMPROVED. DEFINATELY MY BALANCE AND MY GAIT HAVE IMPROVED. SOME INCREASED ANKLE PAIN TODAY AFTER DOING A LOT OF THE STEPS YESTERDAY THOUGH. PATIENT REPORTS THE FISH BUTCHER FOUND A BLOOD CLOT IN HIS L VENTRICLE AND PUT HIM BACK ON BLOOD THINNERS BUT NO RESTRICTIONS. Objective/Function: PATIENT WAS SEEN TODAY FOR RE-ASSESSMENT OF PROGRESS TOWARD THE SET PT GOALS AND THE NEED FOR FURTHER PHYSICAL THERAPY VS READINESS FOR DISCHARGE. PATIENT IS CONTINUING TO MAKE SLOW PROGRESS TOWARD PT GOALS. RECOMMEND CONTINUED PT BASED ON PROGRESS MADE AND ROOM FOR FURTHER IMPROVEMENT WITH TRANSITION TO LAND PT ONE TIME A WEEK TO PROGRESS HEP. HE IS INDEP WITH A POOL PROGRAM. PATIENT AGREEABLE. UPON EXAM TODAY: PATIENT DEMO'S IMPROVED CADANCE WITH GAIT. INDEP TRANSFER SIT TO STAND WITHOUT UE ASSIST. Motor deficit: MANAV LE STRENGTH GROSSLY 5/5 WITH MMT'ING. LEFT ANKLE FUSION AND PAIN. MMT'ING OF MANAV HIPS IS NO LONGER CAUSING C/O PULLING IN LOW BACK. THIS PT PROCEEDED CAREFULLY WITH MMT'ING DUE TO MULTIPLE LE JOINT REPLACEMENTS AND ANKLE FUSIONN. Sensory deficit: ALTERED SENSATION OF LLE SINCE STROKE - REPORTS TINGLING WITH LIGHT TOUCH TESTING. ROM deficit: TIGHT MANAV HIP FLEXORS, HS'S AND GASTROC SOLEUS COMPLEX'S WITH LIMITED LEFT ANKLE ROM > RIGHT. Reflexes: NT. Dural Signs: NEGATIVE MANAV LE'S. Lumbar mvmt loss: flex - NIL. ext - PATRICIA. R SG - PATRICIA. L SG - PATRICIA. PATIENT C/O INCREASED LBP WITH LUMBAR ROM TESTING JUST A LITTLE BIT INTO EXT AND MANAV SG. Core strength: POOR. Palpation: NO ACUTE BACK TENDERNESS BUT THORACIC AND LUMBAR PARASPINALS ARE VERY TIGHT THROUGHOUT. PATIENT REPORTS HE STILL HAS NOT BEEN TAKING THE MUSCLE RELAXERS PRESCRIBED BECAUSE OF THE WAY THEY MAKE HIM FEEL. Plan Plan: TRANSITION TO LAND PT ONE TIME A WEEK TO PROGRESS THER EX WITH WRITTEN HEP. PATIENT AGREEABLE. Goals Goal 1:: DECREASE C/O LOW BACK PAIN Goal Time Frame: 4-6 Weeks Goal Progress: Progressing Goal 2:: IMPROVE PERSONAL CARE, LIFTING, WALKING, SITTING, STANDING, SLEEP, SOCIAL LIFE, TRAVEL AND HOMEMAKING FUNCTION. Goal Time Frame: 4-6 Weeks Goal Progress: Progressing Goal 3:: INSTRUCT IN PROPHYLAXIS Goal Time Frame: 4-6 Weeks Goal Progress: Progressing Anticipated Interventions Patient/Client Instruction: Educate patient on: Condition, Plan of Care, Risk Factors, Benefits of Fitness Program For the Purpose of:: To improve self management Therapeutic Exercise to Include: Strength training, Body mechanics, Postural training, Flexibilty training, Neuromotor development, In an aquatic setting, Dynamic Lumbar Stabilization For the Purpose of:: To decrease pain, To increase ROM, To improve muscle p erformance and motor function, To increase tolerance to activity/condition/position, To improve ability of physical actions for home/community/work/leisure Please do not hesitate to contact me at [phone] by phone or if you have questions or concerns regarding this new plan of care! Sincerely, Jinny Gutierrez, PT, Cert MDT
--- NOTE | 2020-09-24 13:29 | HP.PTDCSUM ---
It has been my pleasure to treat DARRELL PRIETO referred by Dr. Ghanshyam Barfield MD, with the diagnosis of CHRONIC BACK PAIN for a total of 25 visit(s). Discharge Date: 09/24/20 Please see the following information for a summary of their discharge status. Subjective: PATIENT REPORTS THE BIG THING THAT HAS IMPORVED IS HIS ABILITY TO GO DOWN STEPS. HE REPORTS HE IS GOING DOWN STEPS BETTER NOW THAT HE HAS IN MANY YEARS (SINCE 1990). STATES HE FEELS COMFORTABLE DOING DOWN STEP OVER STEP NOW BECAUSE HE CAN LAND ON THE L FOOT WITHOUT INCREASED PAIN NOW. HE STATES MY BALANCE IS BETTER TOO. Lumbar spine Pain Intensity (Out of 10): 2 LLE Pain Intensity (Out of 10): 2 % Improvement: 70 Objective/Function: PATIENT WAS SEEN TODAY FOR RE-ASSESSMENT OF PROGRESS TOWARD THE SET PT GOALS AND THE NEED FOR FURTHER PHYSICAL THERAPY VS READINESS FOR DISCHARGE. ALL GOALS HAVE BEEN MET. PATIENTS LOWER BODY STRENGTH, BALANCE AND FLEXABILITY HAS IMPROVED WITH PT AND HE IS NOW INDEP WITH BOTH LAND AND WATER EX PROGRAMS. PATIENT PLANS TO CONTINUE WITH HIS HOME EX PROGRAM AT THIS TIME. HE IS APPROPRIATE FOR DISCHARGE AND PATIENT AGREEABLE. UPON EXAM TODAY: PATIENT DEMO'S IMPROVED CADANCE WITH GAIT. INDEP TRANSFER SIT TO STAND WITHOUT UE ASSIST. Motor deficit: MANAV LE STRENGTH GROSSLY 5/5 WITH MMT'ING. LEFT ANKLE FUSION AND PAIN. MMT'ING OF MANAV HIPS IS NO LONGER CAUSING C/O PULLING IN LOW BACK. THIS PT PROCEEDED CAREFULLY WITH MMT'ING DUE TO MULTIPLE LE JOINT REPLACEMENTS AND ANKLE FUSIONN. Sensory deficit: ALTERED SENSATION OF LLE SINCE STROKE - REPORTS TINGLING WITH LIGHT TOUCH TESTING. ROM deficit: TIGHT MANAV HIP FLEXORS, HS'S AND GASTROC SOLEUS COMPLEX'S WITH LIMITED LEFT ANKLE ROM > RIGHT. Reflexes: NT. Dural Signs: NEGATIVE MANAV LE'S. Lumbar mvmt loss: flex - NIL. ext - PATRICIA. R SG - PATRICIA. L SG - PATRICIA. PATIENT DENIES INCREASED PAIN WITH LUMBAR ROM TESTING TODAY. Core strength: POOR. Palpation: NO ACUTE BACK TENDERNESS BUT THORACIC AND LUMBAR PARASPINALS ARE VERY TIGHT THROUGHOUT. Goal 1:: DECREASE C/O LOW BACK PAIN Goal Progress: Goal Met Goal 2:: IMPROVE PERSONAL CARE, LIFTING, WALKING, SITTING, STANDING, SLEEP, SOCIAL LIFE, TRAVEL AND HOMEMAKING FUNCTION. Goal Progress: Goal Met Goal 3:: INSTRUCT IN PROPHYLAXIS Goal Progress: Goal Met Plan: D/C TO HEP. PATIENT AGREEABLE. If there are questions or concerns regarding this patient's physical therapy, please feel free to call me at [phone]. Thank you for the referral of this patient. Sincerely, Jinny Gutierrez, PT, Cert MDT
== END 2020-09-24 15:07 | disposition home or self-care (01) ==
LOC: PT 12:00
PROVIDERS: PCP Family Medicine; Referring Provider Family Medicine; Visit Provider Family Medicine
DX: M54.9 Dorsalgia, unspecified (principal); G89.29 Other chronic pain
CPT/HCPCS: 97110; 97112; 97113; 97162; 97164; 97530

== ENCOUNTER 2021-02-25 05:53 | Day surgery (SDC) | payer MEDICARE, SELFPAY ==
[2021-02-10 12:52] VITALS: BMI 30.9
[2021-02-25] VITALS (8 sets, daily range): BP systolic 91–137; BP diastolic 59–67; PULSE 51–57; RESP 16–17; TEMP 36.1–36.3; O2SAT 95–99; BMI 29.7
--- NOTE | 2021-02-25 | COLBX_PTH ---
PATIENT: DARRELL PRIETO LOC: EN U#:[id number] AGE/SX: 80/M ROOM: RE02/25/[address]: Dr. Kwesi Mayorga MD : 1940 BED: DIS: 02/25/2021 SPEC #: [id number] RECD: 02/25/21 12:10 STATUS: OG MARYLU #: [id number] JOSÉ MANUEL: 02/25/21 00:[address]: Kwesi Mayorga DEPT: SURGICAL PATHOLOGY RECD BY: Ivan Lobato ENTERED: 02/25/21 12:13 SP TYPE: COLON BX OTHR DR: Dr. Van Barfield MD Tissues: A - Cecum, NOS B - Ascending colon C - Ascending colon D - Transverse colon E - Gastric mucous membrane F - Gastric mucous membrane G - Transverse colon H - Transverse colon I - Transverse colon J - Descending colon Procedures: Surgery Specimen Level IV HEADER OPERATION: Colonoscopy (MAC) PRE-OP DIAGNOSIS: History of colon polyps and colon cancer, stage III TISSUE SUBMITTED: A - Cecum polyp, B - Mid ascending polyp, C - Biopsy of mid ascending polyp, D - Proximal transverse polyp, E - Hepatic flexure polyp, F - Hepatic flexure polyp #2, G - Biopsy of proximal transverse polyp, H - Biopsy of mid transverse polyp, I - Distal transverse polyp, J - Descending colon polyps x2 MICROSCOPIC DIAGNOSIS A. Cecal polyp, biopsy: Fragments of tubular adenoma. Fecal debris. B. Mid ascending colon polyp, biopsy: Fragments of tubular adenoma. C. Mid ascending colon polyp, biopsy: Tubular adenoma. D. Proximal transverse colon polyp, biopsy: Tubular adenoma. E. Colonic polyp at hepatic flexure, biopsy: Fragments of tubular adenoma. F. Colonic polyp at hepatic flexure #2, biopsy: Fragments of tubular adenoma. Fecal debris. G. Proximal transverse colon polyp, biopsy: Fragments of tubular adenoma. H. Mid transverse colon polyp, biopsy: Tubular adenoma. I. Distal transverse colon polyp, biopsy: Fragments of tubular adenoma. J. Descending colon polyp, biopsy: Fragments of tubular adenoma. Fecal debris. AM:jake 02/26/2021 MICROSCOPIC DESCRIPTION Slides are reviewed. GROSS DESCRIPTION A - Received in fixative is one container labeled with the patient's name and designated cecum polyp. The specimen consists of a fragment of blanco-pink polyp measuring 1 x 0.6 x 0.3 cm. Also present in the container are multiple fragments of fecal material. The entire specimen is submitted in one cassette. B - Received in fixative is one container labeled with the patient's name and designated mid ascending polyp. The specimen consists of two irregular fragments of light blanco soft tissue that in aggregate measure 1 x 0.5 x 0.3 cm. The specimen is totally submitted in one cassette. C - Received in fixative is one container labeled with the patient's name and designated mid ascending. The specimen consists of one irregular fragment of light blanco soft tissue that measures 0.3 x 0.3 x 0.1 cm. The specimen is totally submitted in one cassette. D - Received in fixative is one container labeled with the patient's name and designated proximal transverse polyp. The specimen consists of one irregular fragment of light blanco soft tissue that measures 0.2 x 0.2 x 0.1 cm. The specimen is totally submitted in one cassette. E - Received in fixative is one container labeled with the patient's name and designated hepatic flexure polyp #1. The specimen consists of multiple irregular fragments of light blanco soft tissue that in aggregate measure 0.7 x 0.5 x 0.1 cm. The specimen is totally submitted in one cassette. F - Received in fixative is one container labeled with the patient's name and designated hepatic flexure polyp #2. The specimen consists of multiple irregular fragments of light blanco soft tissue that in aggregate measure 1 x 0.3 x 0.1 cm. The specimen is totally submitted in one cassette. G - Received in fixative is one container labeled with the patient's name and designated biopsy of proximal transverse polyp. The specimen consists of multiple irregular fragments of light blanco soft tissue that in aggregate measure 1.2 x 0.3 x 0.1 cm. The specimen is totally submitted in one cassette. H - Received in fixative is one container labeled with the patient's name and designated biopsy of mid transverse polyp. The specimen consists of one irregular fragment of light blanco soft tissue that measures 0.3 x 0.3 x 0.1 cm. The specimen is totally submitted in one cassette. I - Received in fixative is one container labeled with the patient's name and designated distal transverse polyp. The specimen consists of multiple irregular fragments of blanco-pink soft tissue mixed with fecal material that in aggregate measure 2.5 x 1 x 0.2 cm. The specimen is totally submitted in one cassette. J - Received in fixative is one container labeled with the patient's name and designated descending colon polyp. The specimen consists of multiple irregular fragments of light blanco soft tissue mixed with fecal material that in aggregate measure 2 x 0.7 x 0.2 cm. The specimen is totally submitted in one cassette. / CARLOS A:jake 02/25/21 TC:5 CPT: 63155 x10
--- NOTE | 2021-02-25 06:04 | PCM.HP.BLA ---
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: No Is patient in pain?: No Allergies KALEIGH Inhibitors Adverse Reaction (Verified 02/10/21 12:53) Other levofloxacin [From Levaquin] Adverse Reaction (Verified 02/10/21 12:53) aching legs trouble walking Medications carvedilol 25 mg PO BID 08/11/13 [History Confirmed 02/10/21] clonazepam 0.5 mg PO TID 08/11/13 [History Confirmed 02/10/21] digoxin 125 mcg PO DAILY 08/11/13 [History Confirmed 02/10/21] furosemide 40 mg PO DAILY 08/11/13 [History Confirmed 02/10/21] losartan 100 mg PO DAILY 08/11/13 [History Confirmed 02/10/21] multivitamin,yc-iblz-amostyyr 1 tab PO DAILY 08/11/13 [History Confirmed 02/10/21] potassium chloride 10 meq PO DAILY 08/11/13 [History Confirmed 02/10/21] ascorbic acid (vitamin C) 500 mg PO DAILY@0800 07/11/15 [History Confirmed 02/10/21] aspirin 81 mg PO QHS 07/11/15 [History Confirmed 02/10/21] warfarin 3 mg tablet 3.5 mg PO DAILY tab 02/10/21 [History Confirmed 02/10/21] PFSH Medical History (Updated 02/10/21 @ 12:51 by Petty Donnelly) Acute cholecystitis Atrial fibrillation CHF (congestive heart failure) Coronary artery disease History of stroke Hyperlipidemia Hypertension Osteoarthritis Personal history of colon cancer, stage III Skin lesion of face Surgical History (Updated 02/10/21 @ 12:52 by Petty Donnelly) History of ankle fusion History of cholecystectomy History of colon surgery History of colonoscopy (~2017) History of heart bypass surgery History of left hip replacement History of right knee joint replacement Hx of cataract surgery Status post implantation of automatic cardioverter/defibrillator (AICD) Family History Father Hypertension Heart disease Social History (Updated 02/03/19 @ 13:[address] Kwesi Mayorga MD) Smoking Status: Never smoker alcohol intake: never substance use type: does not use HPI HPI HPI: DARRELL PRIETO, is a 80 M who presents to the office today for surgical consultation regarding follow-up regarding history of colon cancer. He saw this patient on February 03, 2019. He had a history of metastatic sigmoid colon cancer as well as a history of tubular adenomas and tubulovillous adenomas of the colon. Atrial fibrillation on chronic Coumadin anticoagulation. His previous colonoscopy was September 04, 2016 performed with a polypectomy. He was noted to have a tortuous sigmoid colon. Tubular adenoma was removed from the cecum. A more difficult pedunculated polyp was removed from the mid transverse colon. December 2015 he had a laparoscopic sigmoid colectomy for a 5 cm adenocarcinoma low-grade malignancy 3 cm from the stapled margin with 17 lymph nodes removed all with malignancy. He had FOLFOX therapy. Subsequently on February 6019 had a colonoscopy. A polyp was removed from the cecum and one from the transverse colon proximally and one from the distal transverse colon and another one from the distal transverse colon and additional 1 in the descending colon condition on the proximal sigmoid colon. The patient denies bright red blood per rectum or melena. No abdominal pain. No unexpected weight loss. No chest pain or shortness of breath. ROS General General: Yes colon cancer; No weight change, appetite, fatigue, breast cancer or weakness HEENT HEENT: No difficulty swallowing, eye injury, eye surgery, swollen glands or hoarseness Endo Endocrine: No thyroid disease, diabetes mellitus, thyroid cancer, Hair loss, heat intolerance or cold intolerance Musc Musculoskeletal: Yes back problems and arthritis; No rheumatoid arthritis, gout or joint pain Cardio Cardiovascular: Yes pacemaker, heart disease, atrial fibrillation and high blood pressure; No murmur, heart attack, heart stent, palpitations, shortness of breat with exertion or chest pain Psych Psychiatric: No depression, anxiety or hearing voices Resp Respiratory: No shortness of breath, No sleep apnea, Yes cough, No COPD, No asthma, No emphysema and No wheezing Gastro Gastrointestinal: No abdominal pain, No nausea or vomiting, No diarrhea, No constipation, No blood in stool, No acid reflux, No hemorrhoids, No ulcers, No gallbladder problem and No black,tarry stools Bin Hematologic: Yes blood thinners, No blood disorders, No bleeding, No anemia and No blood clots Neuro Neurologic: No weakness Exam Const General: cooperative, comfortable and no acute distress Nutritional Appearance: overweight Orientation: alert and awake [facility] Head: normal to inspection Eyes General: appearance normal, both eyes and all related structures Resp Effort & Inspection: normal respiratory effort Auscultation: clear to auscultation bilaterally Cardio Rate: regular rate Rhythm: regular rhythm GI Palpation: soft and no hepatosplenomegaly Auscultation: normal bowel sounds Musc Cervical Spine: normal cervical lordosis Neuro Cognition: normal cognition Extrem General: no calf tenderness Other: 1+ bilateral extremity pitting edema Psych Appearance: grossly normal COVID (Procedure Consent) Procedure Criteria Procedure Criteria: Yes Elective The surgeon/proceduralist and patient have discussed in detail the risk of exposure to and/or potential harm posed by the COVID-19 virus with having a surgery/procedure at this time versus the risk of delaying the surgery/procedure. It is not possible to know either the risk of delaying the surgery or procedure or chance of getting an infection with perfect accuracy, but a joint decision was made between the patient and the surgeon/proceduralist to proceed at this time with the scheduled surgery/procedure as indicated on the consent form. Assessment and Plan Assessment and Plan (1) Personal history of colonic polyps: Status: Acute (2) Personal history of colon cancer, stage III: Status: Acute Plan - Dr. Kwesi Mayorga MD: 80-year-old gentleman with a personal history of stage III colon cancer and a personal history of multiple colonic polyps. Previous colonoscopy was February 14, 2019 and a cecal polyp in the distal transverse colon polyp in the descending colon polyp in the proximal sigmoid polyp identified. 3 were tubular adenomas and one was hyperplastic. December 2015 had a laparoscopic sigmoid colectomy for him. 5 cm adenocarcinoma low-grade with 17 and 17 lymph nodes positive for metastatic cancer. I recommend to him a colonoscopy with possible biopsy or polypectomy as indicated. We will have him hold his Coumadin for 2 days. He will remain on his aspirin. He is aware of the technique, benefit, risk, alternatives. He has a pacemaker defibrillator in. We will utilize monitored anesthesia care. Copy: Dr. Van Mayorga M.D., F.A.C.S. Coding Level of Care Code Off vis,est,level 3 Diagnoses Personal history of colonic polyps Z86.010 Personal history of colon cancer, stage III Z85.038 I have re-examined the patient. There are no clinical changes since date of exam. Kwesi Mayorga M.D., F.A.C.S.
[2021-02-25] MEDS: Lactated Ringers 1,000 ML 100 ML IV (06:32)
--- NOTE | 2021-02-25 07:57 | OP.COLON_ITS ---
Patient Name: Federico Coronel Procedure Date: 02/25/2021 7:06 AM Date of : 1940 Age: 80 Procedure: Colonoscopy Indications: High risk colon cancer surveillance: Personal history of colonic polyps, High risk colon cancer surveillance: Personal history of colon cancer Providers: Kwesi Mayorga MD Medicines: See the Anesthesia note for documentation of the administered medications Patient Profile: Last Colonoscopy: December 2015. Complications: No immediate complications. Procedure: Pre-Anesthesia Assessment: - Prior to the procedure, a History and Physical was performed, and patient medications and allergies were reviewed. The patient's tolerance of previous anesthesia was also reviewed. The risks and benefits of the procedure and the sedation options and risks were discussed with the patient. All questions were answered, and informed consent was obtained. Prior Anticoagulants: The patient has taken Coumadin (warfarin), last dose was 2 days prior to procedure. ASA Grade Assessment: III - A patient with severe systemic disease. After reviewing the risks and benefits, the patient was deemed in satisfactory condition to undergo the procedure. After I obtained informed consent, the scope was passed under direct vision. Throughout the procedure, the patient's blood pressure, pulse, and oxygen saturations were monitored continuously. The Colonoscope was introduced through the anus and advanced to the cecum, identified by appendiceal orifice and ileocecal valve. The colonoscopy was performed without difficulty. The ileocecal valve and the appendiceal orifice were photographed. Scope In: 7:11:42 AM Scope Withdrawal Time 0 hours 31 minutes 0 seconds Scope Out: 7:46:08 AM Total Procedure Duration Time 0 hours 34 minutes 26 seconds Findings: Hemorrhoids were found on perianal exam. The digital rectal exam findings include enlarged prostate. A 7 mm polyp was found in the cecum. The polyp was sessile. The polyp was removed with a hot snare. Resection and retrieval were complete. A 6 mm polyp was found in the proximal ascending colon. The polyp was sessile. The polyp was removed with a hot snare. Resection and retrieval were complete. A 5 mm polyp was found in the mid ascending colon. The polyp was sessile. The polyp was removed with a cold biopsy forceps. Resection and retrieval were complete. A 9 mm polyp was found in the proximal transverse colon. The polyp was sessile. The polyp was removed with a hot snare. Resection and retrieval were complete. A 8 mm polyp was found in the hepatic flexure. The polyp was sessile. The polyp was removed with a hot snare. Resection and retrieval were complete. A 10 mm polyp was found in the hepatic flexure. The polyp was sessile. The polyp was removed with a hot snare. Resection and retrieval were complete. A 6 mm polyp was found in the proximal transverse colon. The polyp was sessile. The polyp was removed with a cold biopsy forceps. Resection and retrieval were complete. A 5 mm polyp was found in the mid transverse colon. The polyp was sessile. The polyp was removed with a cold biopsy forceps. Resection and retrieval were complete. A 8 mm polyp was found in the distal transverse colon. The polyp was sessile. The polyp was removed with a hot snare. Resection and retrieval were complete. A 8 mm polyp was found in the mid descending colon. The polyp was sessile. The polyp was removed with a hot snare. Resection and retrieval were complete. A 7 mm polyp was found in the mid descending colon. The polyp was sessile. The polyp was removed with a hot snare. Resection and retrieval were complete. Multiple diverticula were found in the sigmoid colon and descending colon. There was evidence of a prior end-to-end colo-colonic anastomosis in the distal sigmoid colon. This was patent and was characterized by healthy appearing mucosa. Impression: - Hemorrhoids found on perianal exam. - Enlarged prostate found on digital rectal exam. - One 7 mm polyp in the cecum, removed with a hot snare. Resected and retrieved. - One 6 mm polyp in the proximal ascending colon, removed with a hot snare. Resected and retrieved. - One 5 mm polyp in the mid ascending colon, removed with a cold biopsy forceps. Resected and retrieved. - One 9 mm polyp in the proximal transverse colon, removed with a hot snare. Resected and retrieved. - One 8 mm polyp at the hepatic flexure, removed with a hot snare. Resected and retrieved. - One 10 mm polyp at the hepatic flexure, removed with a hot snare. Resected and retrieved. - One 6 mm polyp in the proximal transverse colon, removed with a cold biopsy forceps. Resected and retrieved. - One 5 mm polyp in the mid transverse colon, removed with a cold biopsy forceps. Resected and retrieved. - One 8 mm polyp in the distal transverse colon, removed with a hot snare. Resected and retrieved. - One 8 mm polyp in the mid descending colon, removed with a hot snare. Resected and retrieved. - One 7 mm polyp in the mid descending colon, removed with a hot snare. Resected and retrieved. - Diverticulosis in the sigmoid colon and in the descending colon. - Patent end-to-end colo-colonic anastomosis, characterized by healthy appearing mucosa. Recommendation: - Discharge patient to home. - Resume previous diet. - Continue present medications. - Repeat colonoscopy in 1 year for surveillance. - Telephone my office for pathology results in 1 week. Procedure Code(s): --- Professional --- 80564, Colonoscopy, flexible; with removal of tumor(s), polyp(s), or other lesion(s) by snare technique 43488, 59, Colonoscopy, flexible; with biopsy, single or multiple Diagnosis Code(s): --- Professional --- Z86.010, Personal history of colonic polyps Z85.038, Personal history of other malignant neoplasm of large intestine K64.9, Unspecified hemorrhoids D12.0, Benign neoplasm of cecum D12.2, Benign neoplasm of ascending colon D12.3, Benign neoplasm of transverse colon (hepatic flexure or splenic flexure) D12.4, Benign neoplasm of descending colon Z98.0, Intestinal bypass and anastomosis status K57.30, Diverticulosis of large intestine without perforation or abscess without bleeding N40.0, Benign prostatic hyperplasia without lower urinary tract symptoms CPT copyright 2017 [employer]. All rights reserved. The codes documented in this report are preliminary and upon car unloader review may be revised to meet current compliance requirements. Kwesi Mayorga MD 02/25/2021 7:56:58 AM This report has been signed electronically. Number of Addenda: 0 Note Initiated On: 02/25/2021 7:06 AM
--- NOTE | 2021-02-25 07:58 | OP.CCLET_ITS ---
02/25/2021 Ghanshyam Barfield [address] [place] [address] Re : Colonoscopy procedure for Federico Coronel Dear Dr. Barfield This procedure was performed on Thursday, February 25, 2021. My impressions and recommendations are as follows: Impressions : - Hemorrhoids found on perianal exam. - Enlarged prostate found on digital rectal exam. - One 7 mm polyp in the cecum, removed with a hot snare. Resected and retrieved. - One 6 mm polyp in the proximal ascending colon, removed with a hot snare. Resected and retrieved. - One 5 mm polyp in the mid ascending colon, removed with a cold biopsy forceps. Resected and retrieved. - One 9 mm polyp in the proximal transverse colon, removed with a hot snare. Resected and retrieved. - One 8 mm polyp at the hepatic flexure, removed with a hot snare. Resected and retrieved. - One 10 mm polyp at the hepatic flexure, removed with a hot snare. Resected and retrieved. - One 6 mm polyp in the proximal transverse colon, removed with a cold biopsy forceps. Resected and retrieved. - One 5 mm polyp in the mid transverse colon, removed with a cold biopsy forceps. Resected and retrieved. - One 8 mm polyp in the distal transverse colon, removed with a hot snare. Resected and retrieved. - One 8 mm polyp in the mid descending colon, removed with a hot snare. Resected and retrieved. - One 7 mm polyp in the mid descending colon, removed with a hot snare. Resected and retrieved. - Diverticulosis in the sigmoid colon and in the descending colon. - Patent end-to-end colo-colonic anastomosis, characterized by healthy appearing mucosa. Recommendations : - Discharge patient to home. - Resume previous diet. - Continue present medications. - Repeat colonoscopy in 1 year for surveillance. - Telephone my office for pathology results in 1 week. My findings are described in the full procedure note, which is enclosed. If I can be of further assistance, please feel free to contact me at Doctor phone number(s): Work: . Sincerely, Kwesi Mayorga MD 02/25/2021 7:56:58 AM This report has been signed electronically.
[2021-02-25 08:31] LABS: INR Fingerstick 2.1; Prothrombin Time Fingerstick 23.7 SEC (11.9-14.4)
== END 2021-02-25 09:27 | disposition home or self-care (01) ==
LOC: EN 05:53 → AC 05:54
PROVIDERS: PCP Family Medicine; Referring Provider Family Medicine; Visit Provider Surgery
PROC: 0DJD8ZZ Inspection of Lower Intestinal Tract, Via Natural or Artificial Opening Endoscopic (ICD-10-PCS; CPT 45378; principal; 2021-02-25 06:55)
DX: D12.0 Benign neoplasm of cecum (principal); D12.2 Benign neoplasm of ascending colon; D12.3 Benign neoplasm of transverse colon; D12.4 Benign neoplasm of descending colon; K57.30 Diverticulosis of large intestine without perforation or abscess without bleeding; K64.9 Unspecified hemorrhoids; N40.0 Benign prostatic hyperplasia without lower urinary tract symptoms; Z86.010 Personal history of colon polyps; Z85.038 Personal history of other malignant neoplasm of large intestine; Z98.0 Intestinal bypass and anastomosis status; Z87.19 Personal history of other diseases of the digestive system; I48.91 Unspecified atrial fibrillation; I50.9 Heart failure, unspecified; I25.10 Atherosclerotic heart disease of native coronary artery without angina pectoris; E78.5 Hyperlipidemia, unspecified; I11.0 Hypertensive heart disease with heart failure; M19.90 Unspecified osteoarthritis, unspecified site; Z86.73 Personal history of transient ischemic attack (TIA), and cerebral infarction without residual deficits; Z90.49 Acquired absence of other specified parts of digestive tract; Z79.01 Long term (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 of 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; Z79.82 Long term (current) use of aspirin; Z79.899 Other long term (current) drug therapy
CPT/HCPCS: 45380; 45385; 36416; 85610; 88305; J7120; J2405

== ENCOUNTER 2021-05-27 05:38 | Observation (INO) | payer MEDICARE, SELFPAY ==
[2021-05-27] VITALS (19 sets, daily range): BP systolic 106–155; BP diastolic 70–90; PULSE 65–85; RESP 16–19; TEMP 36.4–37.1; O2SAT 90–98; BMI 28.4; BMI 30.2
--- NOTE | 2021-05-27 05:48 | EKG12_ITS ---
Test Reason : CP Blood Pressure : / mmHG Vent. Rate : 078 BPM Atrial Rate : 312 BPM P-R Int : 000 ms QRS Dur : 182 ms QT Int : 432 ms P-R-T Axes : 066 164 064 degrees QTc Int : 492 ms Atrial flutter with variable A-V block with premature ventricular or aberrantly conducted complexes Right bundle branch block Inferior infarct , age undetermined Anterolateral infarct , age undetermined Abnormal ECG Confirmed by MIRTHA RAO, RAE ([id number]), supervising editor news reel LUCERO ESTRADA ([id number]) on 05/28/2021 2:04:42 PM Referred By: ANGEL Confirmed By:RAE SHANNON MD
--- NOTE | 2021-05-27 05:58 | RAD_ITS ---
EXAM: XR Chest, 1 View CLINICAL INDICATION: 81 years old, Male; sob TECHNIQUE: Frontal view of the chest. This report was created using [employer] report generation technology. COMPARISON: XR Chest dated 12/13/2018 FINDINGS: Lungs and pleural spaces: Infiltrates in the lower lungs are new and may be due to edema or pneumonia. No pneumothorax. No effusion. Heart: Cardiac enlargement. Mediastinum: Central airways and mediastinal contour are unremarkable. Bones/joints: Median sternotomy. Degenerative changes both shoulders. Soft tissues: Unremarkable. Tubes, lines and devices: Automatic implantable cardioverter defibrillator (AICD). RAD/Chest 1 View (Portable) IMPRESSION: Infiltrates in the lower lungs are new and may be due to edema or pneumonia. Electronically Signed: Juan Smith MD at 6:35 EST Tel , Service support ,
--- NOTE | 2021-05-27 05:59 | EKG12_ITS ---
Test Reason : PCI Blood Pressure : / mmHG Vent. Rate : 072 BPM Atrial Rate : 072 BPM P-R Int : 154 ms QRS Dur : 124 ms QT Int : 392 ms P-R-T Axes : 068 140 039 degrees QTc Int : 429 ms Sinus rhythm with occasional Premature ventricular complexes Right bundle branch block Confirmed by MIRTHA RAO, RAE ([id number]), news editor LUCERO ESTRADA ([id number]) on 05/28/2021 1:05:33 PM Referred By: SOPHIA Confirmed By:RAE SHANNON MD
[2021-05-27] MEDS: Aspirin 81 MG TAB.CHEW 324 MG PO (06:02)
[2021-05-27 06:06] LABS: Absolute Lymphocyte Count 0.76 X10^3/uL (0.83-4.51); Absolute Neutrophil Count 9.9 X10^3/uL (2.0-7.7); Basophil# 0.03 X10^3/uL; Basophil% 0.3 % (0-1); Eosinophil# 0.27 X10^3/uL; Eosinophils% 2.3 % (0-5); Hematocrit 46.3 % (40-54); Hemoglobin 15.3 g/dL (13.0-16.5); Lymphocyte # 0.76 X10^3/ul (0.83-4.51); Lymphocyte % 6.5 % (19-41); Mean Corpuscular Hgb 31.4 pg (27.0-32.0); Mean Corpuscular Volume 94.9 fL (80-94); Mean Platelet Vol. 10.6 fl (6.2-12.0); Monocyte# 0.71 X10^3/uL; Monocyte% 6.1 % (0-10); NRBC Flagged by Analyzer 0 % (0-5); Neutrophil # 9.87 X10^3/uL (2.7-7.7); Neutrophil % 84.2 % (47-70); Platelet Count 180 K/mm3 (150-450); RBC Distribution Width CV 14.1 % (11.6-14.6); RBC Distribution Width SD 48.9 fl (35.1-43.9); Red Blood Count 4.88 M/mm3 (4.6-6.2); White Blood Count 11.7 K/mm3 (4.4-11.0)
[2021-05-27 06:14] LABS: International Normalized Ratio 2.6; Prothrombin Time (Protime)PT. 26.9 SECONDS (11.7-14.9)
[2021-05-27 06:47] LABS: Anion Gap 7 (5-15); BUN 18 mg/dL (7-18); Calcium,Total 8.8 mg/dL (8.5-10.1); Chloride 106 mmol/L (98-107); Creatinine, Serum 0.95 mg/dL (0.70-1.30); EST Glomerular Filtration Rate 81 mL/min (>60); Est Glom Filt Rate - Afr Amer 99 mL/min (>60); Estimated Creatinine Clearance 53.95 ml/min; Glucose 111 mg/dL (74-106); Potassium 4.3 mmol/L (3.5-5.1); Sodium Level 137 mmol/L (136-145)
--- NOTE | 2021-05-27 06:58 | EDS_ITS ---
HPI History of Present Illness Chief Complaint: Shortness of Breath Informant: patient Narrative Narrative: Patient presents secondary to back pain and shortness of breath. He reports having back tightness for the last several months seems to be worse the past several days. He does admit to some mild right anterior chest pain the last 2 days. He reports shortness of breath and states that when he was laying down tonight he could hear crackles in his lungs. He has a history of CHF as well as coronary disease so came in for evaluation. Patient does have significant cardiac history including 5 way cardiac bypass and AICD secondary to low EF. He does not have any cardiac stents. Patient is on Coumadin secondary to a history of A. fib/flutter. [facility] Medical History Acute cholecystitis Arthritis Atrial fibrillation Back pain Cancer Cardiology follow-up encounter CHF (congestive heart failure) Coronary artery disease High cholesterol History of atrial fibrillation History of CHF (congestive heart failure) History of echocardiogram History of hiatal hernia History of pain when walking History of steroid therapy History of stress test History of stroke Hyperlipidemia Hypertension Hypertension Kidney stone Non-smoker Osteoarthritis Personal history of colon cancer Personal history of colon cancer, stage III Skin lesion of face Stroke/cerebrovascular accident Wears glasses Home Medications carvedilol 25 mg PO BID 08/11/13 [History Last Taken 02/25/21 05:15] clonazepam 0.5 mg PO TID 08/11/13 [History Last Taken 02/14/19 05:00] digoxin 125 mcg PO DAILY 08/11/13 [History Last Taken 02/25/21 05:15] furosemide 40 mg PO DAILY 08/11/13 [History Last Taken 07/16/15 40 MG] losartan 100 mg PO DAILY 08/11/13 [History Last Taken 02/25/21 05:15] potassium chloride 10 meq PO DAILY 08/11/13 [History Last Taken 07/16/15 10 MEQ] ascorbic acid (vitamin C) 500 mg PO DAILY@0800 07/11/15 [History Last Taken 07/16/15 500 MG] aspirin 81 mg PO QHS 07/11/15 [History Last Taken 07/12/15 81 MG] warfarin 3 mg tablet 3.5 mg PO DAILY tab 02/10/21 [History Last Taken 02/22/21] vit C,D-Dq-sfglv-lutein-zeaxan [PreserVision AREDS-2] 1 tab PO BID 02/24/21 [History Last Taken Unknown] warfarin [Coumadin] 3 mg PO DAILY 05/27/21 [History Last Taken Unknown] Allergy/AdvReac Type Severity Reaction Status Date / Time KALEIGH Inhibitors AdvReac Other Verified 05/27/21 05:48 levofloxacin [From Levaquin] AdvReac aching Verified 05/27/21 05:48 legs trouble walking Family History Father Hypertension Heart disease Surgical History History of ankle fusion History of cholecystectomy History of colon surgery History of colonoscopy (~2017) History of heart bypass surgery History of left hip replacement History of right knee joint replacement Hx of cataract surgery Status post implantation of automatic cardioverter/defibrillator (AICD) Social History Smoking Status: Never smoker alcohol intake: never substance use type: does not use ROS ROS ED Constitutional Constitutional ED: Denies chills or fever(s) Eyes Eyes: Denies change in vision ENT ENT ED: Denies sore throat Cardiovascular Cardiovascular: Reports chest pain Respiratory/Chest Respiratory/Chest: Reports dyspnea; Denies cough Gastrointestinal Gastrointestinal: Denies abdominal pain, diarrhea, nausea or vomiting Genitourinary Genitourinary ED: Denies dysuria Musculoskeletal Musculoskeletal: Reports back pain Integumentary Denies rash Neurologic Neurologic: Denies headache(s) or weakness Allergic/Immunologic Allergic/Immunologic ED: Denies urticaria EXAM Physical Exam Const Vital Signs: 05/27/21 05:40 05/27/21 05:43 05/27/21 05:45 Temperature 98.0 F 98.0 F Temperature Source Temporal Temporal Pulse Rate 78 75 Respiratory Rate 18 16 Respiratory Effort Respiratory Depth Blood Pressure 126/90 H 126/90 H Blood Pressure Mean 102 102 Pulse Ox 92 90 90 Oxygen Delivery Method Room Air Room Air Room Air Oxygen Flow Rate (L/min) 05/27/21 05:53 Temperature Temperature Source Pulse Rate Respiratory Rate Respiratory Effort Short of Breath Labored Respiratory Depth Normal Blood Pressure Blood Pressure Mean Pulse Ox Oxygen Delivery Method Nasal Cannula Oxygen Flow Rate (L/min) 2 Positive well nourished and well developed General Appearance ED: well developed Eyes PERRL and EOMs intact bilaterally Neck supple Chest Wall inspection of chest normal and palpation of chest normal Resp normal respiratory effort Auscultation: diminished lung sounds bilateral (Bilateral bases) Cardio regular rate and regular rhythm GI non-tender Palpation: soft Extremity Extremity Narrative: 2+ right lower extremity edema. 1+ left lower extremity edema. Patient states this is chronically asymmetric secondary to her prior knee surgery. Neuro oriented x3 Sensorium / Orientation: alert Skin no rashes or lesions noted MDM MDM MDM Narrative Medical decision making narrative: EKG, chest x-ray, lab work obtained. Lab Data Attestation: I reviewed the patient's lab results. Labs: Laboratory Results - last 24 hr 05/27/21 05/27/21 05/27/21 05:50 05:50 05:50 WBC 11.7 H RBC 4.88 Hgb 15.3 Hct 46.3 MCV 94.9 H MCH 31.4 MCHC 33.0 RDW Std Deviation 48.9 H RDW Coeff of Abdirahman 14.1 Plt Count 180 MPV 10.6 Immature Gran % (Auto) 0.600 Neut % (Auto) 84.2 H Lymph % (Auto) 6.5 L [place] % (Auto) 6.1 Eos % (Auto) 2.3 Baso % (Auto) 0.3 Absolute Neuts (auto) 9.9 H Absolute Lymphs (auto) 0.76 L Nucleated RBC % 0 PT 26.9 H INR 2.6 Sodium 137 Potassium 4.3 Chloride 106 Carbon Dioxide 24.0 Anion Gap 7 BUN 18 Creatinine 0.95 Estim Creat Clear Calc 53.95 Est GFR (MDRD) Af Amer 99 Est GFR (MDRD) Non-Af 81 BUN/Creatinine Ratio 19.0 Glucose 111 H Calcium 8.8 Troponin I High Sens 37683 H* Radiography Chest X-Ray - ED: 1 View and CHF Diagnostic Testing: Clinical Impression(s) from Imaging Studies Chest X-Ray 05/27/21 05:58 IMPRESSION: Infiltrates in the lower lungs are new and may be due to edema or pneumonia. Electronically Signed: Juan Smith MD at 6:35 EST Tel , Service support , EKG Initial EKG: Attestation: I personally reviewed and interpreted this EKG as follows: Interpretation: Atrial Flutter (Atrial flutter with variable AV block. Ventricular rate 70 bpm. No acute ischemia appreciated.) Treatment and Re-Evaluation Comments:: EKG reveals mild CHF. Radiology interpreted Tatian reviewed. Lab work reveals normal white count and hemoglobin. INR is therapeutic at 2.6. Chemistry studies unremarkable. Troponin elevated at just under 50,000. BNP is pending at this time. Patient had been given aspirin on arrival. Test results discussed with patient and family at bedside. I spoke with Dr. Farley who will be in to see the patient in the emergency room. Discharge Plan Triage Chief Complaint: Shortness of Breath ED Provider: Tess Sheffield Dx/Rx/DC Orders Clinical Impression: CHF (congestive heart failure), Myocardial infarction Prescriptions: No Action losartan 50 MG tablet 100 mg PO DAILY RF: 0 furosemide 40 MG tablet 40 mg PO DAILY RF: 0 carvedilol 25 MG tablet 25 mg PO BID RF: 0 clonazepam 0.5 MG tablet 0.5 mg PO TID RF: 0 digoxin 125 MCG tablet 125 mcg PO DAILY RF: 0 potassium chloride 10 MEQ tablet 10 meq PO DAILY RF: 0 aspirin 81 MG tablet 81 mg PO QHS RF: 0 ascorbic acid (vitamin C) 500 MG tablet 500 mg PO DAILY@0800 RF: 0 warfarin 3 mg tablet 3.5 mg PO DAILY RF: 0 PreserVision AREDS-2 250-90-40-1 mg Capsule 1 tab PO BID RF: 0 warfarin [Coumadin] 3 mg Tablet 3 mg PO DAILY RF: 0 Primary Care Provider: Ghanshyam Barfield Referrals: Ghanshyam Barfield MD [Primary Care Provider] - Disposition Disposition: Acute Care Hospital [facility]
[2021-05-27 07:10] LABS: BNP,B-Type NATRIURETIC PEPTIDE 1240.6 pg/mL (0-100)
[2021-05-27] MEDS: Furosemide 40 MG/4 ML Vial IV ×2 (07:25→14:22)
--- NOTE | 2021-05-27 07:31 | ECHOCS_ITS ---
Reason For Study: CHF, LV Thrombus Procedure This was a 2D Doppler, Color Flow transthoracic echocardiogram. The study was technically difficult. Contrast injection was performed. Exam performed portable in patient room. Left Ventricle Moderately dilated left ventricle. The estimated ejection fraction is 25 %. Severe segmental systolic dysfunction (see wall motion). Stage 2 diastolic dysfunction. [place] : Hypokinetic. Mid- Posterior: Akinetic. Mid-Lateral : Hypokinetic. Mid-Anterior : Normal. Basal anteroseptal: Normal. Basal inferoseptal: Severely Hypokinetic. Posterior-Basal: Akinetic. Infero-Basal: Akinetic. Lateral-Basal: Hypokinetic. Mid-Inferior: Akinetic. Right Ventricle Normal RV size. ICD or pacer leads identified within the right ventricle. Normal systolic function. Atria The left atrium is moderately enlarged. The right atrium is mildly enlarged. Mitral Valve Bileaflet diffuse mitral valve thickening. Moderate (2+) eccentric mitral valve insufficiency. Tricuspid Valve Normal tricuspid valve. Mild to moderate (1-2+) tricuspid valve insufficiency. Pulmonary artery systolic pressure is 37 mmHg. Aortic Valve Trisinus/trileaflet aortic valve. Pulmonic Valve Normal pulmonic valve. Great Vessels Normal aortic root. The pulmonary artery is normal size. Normal inferior vena cava. Pericardium/Pleural No pericardial effusion. Medication Diluted definity 3ml given slow IV push to enhance endocardial definition. MMode/2D Measurements & Calculations LVIDd: 6.3 cm IVSd: 1.7 cm LA dimension: 5.9 cm LVIDs: 5.6 cm LVPWd: 0.99 cm FS: 10.0 % LAV(MOD-bp): 90.1 ml LA A4 area: 27.9 cm2 RA A4 area: 18.3 cm2 LAV(MOD-bp) Indexed: 50.5 ml/m2 LAV(MOD-sp2): 74.0 ml LAV(MOD-sp4): 98.0 ml Time Measurements MV dec time: 0.15 sec Doppler Measurements & Calculations MV E max akil: 114.2 cm/sec Lat Peak E' Akil: 6.0 cm/sec Med Peak E' Akil: 3.1 cm/sec MV A max aikl: 73.9 cm/sec E/E' lat: 19.1 E/E' med: 36.9 MV E/A: 1.5 MV V2 max: 117.0 cm/sec MV P1/2t max akil: 116.3 cm/sec Ao V2 max: 77.6 cm/sec MV max P.5 mmHg MV P1/2t: 56.3 msec Ao max P.4 mmHg MV V2 mean: 67.6 cm/sec MV dec slope: 604.8 cm/sec2 MV mean P.2 mmHg MV V2 VTI: 29.1 cm MVA(P1/2t): 3.9 cm2 LV V1 max: 66.8 cm/sec MR max akil: 579.1 cm/sec TR max akil: 290.6 cm/sec LV V1 max P.8 mmHg MR max P.1 mmHg TR max P.8 mmHg MR mean akil: 390.0 cm/sec MR mean P.2 mmHg MR VTI: 169.4 cm ECHO/Echo Complete W/ Contrast Interpretation Summary The estimated ejection fraction is 25 %. Severe segmental systolic dysfunction (see wall motion). Moderate (2+) eccentric mitral valve insufficiency. Stage 2 diastolic dysfunction. Moderately dilated left ventricle. Ordering Physician: Miguel Farley Referring Physician: Van Barfield Performed By: Artemio Lopez RCS
--- NOTE | 2021-05-27 07:31 | NURSING ---
GIRISH BARONE NSTEMI, CHF
--- NOTE | 2021-05-27 07:33 | CON.PCM.CA_ITS ---
Assessment & Plan Assessment/Plan (1) NSTEMI (non-ST elevated myocardial infarction): PLAN: He presents with back discomfort and chest discomfort and has cardiac enzymes which are suggestive of a non-ST elevation myocardial infarction. * The plan will be to resume his beta-mert and continue his aspirin * We will schedule a cardiac catheterization as soon as is feasible to assess his coronary anatomy and to guide therapy * I have discussed the above with the patient and his son they understand and agree to proceed (2) CHF (congestive heart failure): PLAN: He does have a history of congestive heart failure. He has been on oral Lasix. At this time with his elevated natruretic peptide I would suggest that we start him on IV Lasix 40 mg a day. * We will reassess his left ventricular systolic function. * He will be on the carvedilol as well * May consider the addition of spironolactone (3) History of atrial fibrillation: PLAN: He does have a history of atrial fibrillation flutter. He appears to be in paroxysms of the above. * Anticoagulation will be continued once his procedure has been done. (4) Hypertension: QUALIFIERS: Hypertension type: essential hypertension Qualified Code(s): I10 - Essential (primary) hypertension PLAN: His blood pressure is under good control at this time and no changes will be made with respect to his medications. (5) Hyperlipidemia: QUALIFIERS: Hyperlipidemia type: unspecified Qualified Code(s): E78.5 - Hyperlipidemia, unspecified PLAN: He does have a history of hyperlipidemia and will continue with aggressive risk factor modification. (6) Status post implantation of automatic cardioverter/defibrillator (AICD): PLAN: He does have a [employer] implantable defibrillator. He has been having this interrogated at the [facility] and we will continue to follow. At this time it does not appear that there has been any indication of defibrillator discharge. (7) LV (left ventricular) mural thrombus: PLAN: He does have a previous history of left ventricular mural thrombus. We will reevaluate the above with an echocardiogram. Depending on the findings further recommendations will be made. Addendum: Cardiac catheterization demonstrated still occluded left main coronary artery. Left anterior descending artery is totally occluded. Right coronary artery was totally occluded. Left internal mammary artery to left anterior descending artery is patent supplying collaterals to the distal right coronary artery and a diagonal vessel. The distal left anterior descending artery was noted to be patent. Saphenous vein graft to right coronary artery was noted to be previously occluded. Saphenous vein graft to the obtuse marginal branch was noted to be patent with anastomotic 95 to 99% stenosis and [place] vessel 50% mid stenosis and distal 75% stenosis. Severe left ventricular systolic dysfunction is noted with an estimated ejection fraction of 15% with an akinetic inferior wall as well as posterior wall. Based on the above angiographic findings the patient to be considered for PCI of the saphenous vein graft to the circumflex artery. HPI Consult Data Date of Consult: 05/27/21 HPI Narrative HPI Narrative: DARRELL PRIETO, is a 81 M who presents to the emergency room early this morning with back discomfort as well as shortness of breath. The back discomfort has apparently been going on for the last few days and he is also had some mild anterior chest discomfort. He was noted to be getting progressively short of breath with a cough but no pedal edema and so presented to the emergency room. He does have a history of coronary artery disease status post coronary bypass surgery x 3 in 2005. He had a ARIZMENDI to the LAD, saphenous vein graft to the left circumflex, and saphenous vein graft to the obtuse marginal branch of the right coronary artery according to the notes. He also has a history of atrial fibrillation flutter and reduced left ventricular systolic function with a possible left ventricular thrombus for which she has been on anticoagulation. He also has an ICD implanted for low EF for primary prevention. He has been following up at the [facility]. He was evaluated in the emergency room felt to be in mild congestive heart failure and a concern for unstable angina. His cardiac enzymes were noted to be elevated at 49,000 and his [employer] was over 1200. Cardiology was consulted for further evaluation and management. At this particular time he appears to be relatively pain-free. [facility] Medical History Acute cholecystitis Arthritis Atrial fibrillation Back pain Cancer Cardiology follow-up encounter CHF (congestive heart failure) Coronary artery disease High cholesterol History of atrial fibrillation History of CHF (congestive heart failure) History of echocardiogram History of hiatal hernia History of pain when walking History of steroid therapy History of stress test History of stroke Hyperlipidemia Hypertension Hypertension Kidney stone Non-smoker Osteoarthritis Personal history of colon cancer Personal history of colon cancer, stage III Skin lesion of face Stroke/cerebrovascular accident Wears glasses Home Medications carvedilol 25 mg PO BID 08/11/13 [History Last Taken 05/26/21] clonazepam 0.5 mg PO TID 08/11/13 [History Last Taken 05/26/21] digoxin 125 mcg PO DAILY 08/11/13 [History Last Taken 05/26/21] furosemide 40 mg PO DAILY 08/11/13 [History Last Taken 05/26/21] losartan 100 mg PO DAILY 08/11/13 [History Last Taken 05/26/21] potassium chloride 10 meq PO DAILY 08/11/13 [History Last Taken 05/26/21] ascorbic acid (vitamin C) 500 mg PO DAILY@0800 07/11/15 [History Last Taken 05/26/21] aspirin 81 mg PO QHS 07/11/15 [History Last Taken 05/26/21] vit C,Y-Yv-vvbpm-lutein-zeaxan [PreserVision AREDS-2] 1 tab PO BID 02/24/21 [History Last Taken 05/26/21] warfarin [Coumadin] 3 mg PO DAILY 05/27/21 [History Last Taken 05/26/21] Allergy/AdvReac Type Severity Reaction Status Date / Time KALEIGH Inhibitors AdvReac Other Verified 05/27/21 05:48 levofloxacin [From Levaquin] AdvReac aching Verified 05/27/21 05:48 legs trouble walking Family History Father Hypertension Heart disease Surgical History History of ankle fusion History of cholecystectomy History of colon surgery History of colonoscopy (~2017) History of heart bypass surgery History of left hip replacement History of right knee joint replacement Hx of cataract surgery Status post implantation of automatic cardioverter/defibrillator (AICD) Social History Smoking Status: Never smoker alcohol intake: never substance use type: does not use ROS Constitutional Constitutional: Denies fever(s) or weight loss Eyes Eyes: Reports systems reviewed and no addt'l complaints, except as documented ENT HEENT: Reports systems reviewed and no addt'l complaints, except as documented Cardiovascular Cardiovascular: Reports dyspnea at rest and dyspnea on exertion; Denies chest pain at rest, chest pain with activity, edema, palpitations or paroxysmal nocturnal dyspnea Respiratory/Chest Respiratory/Chest: Denies dyspnea on exertion, productive cough, shortness of breath at rest or shortness of breath with exertion Gastrointestinal Gastrointestinal: Denies change in bowel habits, nausea, vomiting or weight changes Genitourinary Genitourinary: Denies difficulty urinating Musculoskeletal Musculoskeletal: Denies joint stiffness or muscle weakness Integumentary Integumentary: Denies lesions Neurologic Neurologic: Denies dizziness or syncope Psychiatric Psychiatric: Denies anxiety Endocrine Endocrinology: Denies excessive sweating or fatigue Hematologic/Lymphatic Hematologic/Lymphatic: Denies anemia Allergic/Immunologic Allergic/Immunologic: Denies seasonal rhinorrhea Physical Exam Const alert, oriented x3 and no apparent distress General Appearance: cooperative HEENT hearing grossly normal bilaterally Head and Scalp: atraumatic Eyes EOMs intact bilaterally Neck General: normal visual inspection Chest inspection of chest normal and palpation of chest normal Resp normal respiratory effort Auscultation: clear to auscultation bilaterally Cardio regular rate, regular rhythm, S1 normal heart sound and S2 normal heart sound Jugular Venous Distention: JVD GI normal to inspection, nondistended, normoactive bowel sounds Extremity normal capillary refill and no pedal edema Peripheral Pulses: Yes pulses 2+ throughout and femoral pulses present Skin no rashes or lesions noted Neuro oriented x3 and CN's II-XII intact bilaterally Psych Appearance: grossly normal and appropriate Risk Stratification Risk Stratification Applicable: Yes Age >/= 65: Yes >/= 3 CAD Risk Factors (HTN, HLD, DM, family hx of CAD, or current smoker): No Aspirin Use in the Past 7 Days: Yes Severe Angina (>/= episodes in 24 hours): Yes EKG ST Changes >/= 0.5mm: No Positive Cardiac Marker: Yes YEMI Risk Stratification Score: 4 YEMI % Risk: 20% Risk Objective Data Vital Signs: Vital Signs Temp Pulse Resp BP Pulse Ox 98.7 F 75 16 122/70 H 95 05/27/21 07:26 05/27/21 07:26 05/27/21 07:26 05/27/21 07:26 05/27/21 07:26 Oxygen Flow Rate (L/min) 2 Oxygen Delivery Method Room Air Weight: 170 lb 13.732 oz Body Mass Index (BMI) 28.4 Lab / Micro Data Result Diagrams: 05/27/21 05:50 05/27/21 05:50 Labs: Laboratory Results - last 24 hr 05/27/21 05:50: WBC 11.7 H, RBC 4.88, Hgb 15.3, Hct 46.3, MCV 94.9 H, MCH 31.4, MCHC 33.0, RDW Std Deviation 48.9 H, RDW Coeff of Abdirahman 14.1, Plt Count 180, MPV 10.6, Immature Gran % (Auto) 0.600, Neut % (Auto) 84.2 H, Lymph % (Auto) 6.5 L, Thomas % (Auto) 6.1, Eos % (Auto) 2.3, Baso % (Auto) 0.3, Absolute Neuts (auto) 9.9 H, Absolute Lymphs (auto) 0.76 L, Nucleated RBC % 0 05/27/21 05:50: PT 26.9 H, INR 2.6 05/27/21 05:50: Sodium 137, Potassium 4.3, Chloride 106, Carbon Dioxide 24.0, Anion Gap 7, BUN 18, Creatinine 0.95, Estim Creat Clear Calc 53.95, Est GFR ( MDRD) Af Amer 99, Est GFR (MDRD) Non-Af 81, BUN/Creatinine Ratio 19.0, Glucose 111 H, Calcium 8.8, Troponin I High Sens 13940 H* 05/27/21 05:50: B-Natriuretic Peptide 1240.6 H Cardiology Labs/Tests 05/27/21 05:50: WBC 11.7 H, RBC 4.88, Hgb 15.3, Hct 46.3, MCV 94.9 H, MCH 31.4, MCHC 33.0, Plt Count 180, MPV 10.6, Immature Gran % (Auto) 0.600, Neut % (Auto) 84.2 H, Lymph % (Auto) 6.5 L, Thomas % (Auto) 6.1, Eos % (Auto) 2.3, Baso % (Auto) 0.3, Absolute Neuts (auto) 9.9 H, Nucleated RBC % 0 05/27/21 05:50: PT 26.9 H, INR 2.6 05/27/21 05:50: Sodium 137, Potassium 4.3, Chloride 106, Carbon Dioxide 24.0, Anion Gap 7, BUN 18, Creatinine 0.95, Est GFR (MDRD) Af Amer 99, Est GFR (MDRD) Non-Af 81, BUN/Creatinine Ratio 19.0, Glucose 111 H, Calcium 8.8 05/27/21 05:50: B-Natriuretic Peptide 1240.6 H Rhythm: EKG: ECHO: Stress Test: Cardiac Cath: PCI: CT Surgery: Holter monitor: EPS: PPM: CXR: Chest CT Scan: Radiography Diagnostic Testing: Radiology Impression Chest X-Ray 05/27/21 05:58 IMPRESSION: Infiltrates in the lower lungs are new and may be due to edema or pneumonia. Electronically Signed: Juan Smith MD at 6:35 EST Tel , Service support ,
--- NOTE | 2021-05-27 08:15 | PCS.PANDOC ---
PANDEMIC DOCUMENTATION INITIATED: Date: 02/24/2021 Time: 190
--- NOTE | 2021-05-27 08:52 | HP.PCM.HOS_ITS ---
HPI - General General Date of Admission: 05/27/21 Date of Service: 05/27/21 Chief Complaint: Shortness of breath HPI Narrative DARRELL PRIETO, is a 81 M who presents to the room at [facility] with a chief complaint of increasing shortness of breath over the last few days. Patient denies any actual chest pain, he did complain of upper back pain however. Patient's past medical history is remarkable for coronary artery d isease with bypass in his remote past, he also had an ICD placed in 2007 for low LV function. Work-up in the emergency room included a chest x-ray which showed infiltrates in both lungs consistent with vascular congestion, patient's lab was remarkable for a white blood cell count 11.7, INR was 2.6, beta natruretic peptide was elevated at 1240, and troponin was elevated at 49,943. Patient's EKG showed no evidence of injury pattern. Patient was seen in the emergency room by cardiology early this morning, he was given IV Lasix for his congestive heart failure, he will most likely undergo cardiac catheterization this afternoon. I talked with Dr. Farley about this today. Patient will be admitted to PCU for non-STEMI and congestive heart failure. [facility] Medical History Acute cholecystitis Arthritis Atrial fibrillation Back pain Cancer Cardiology follow-up encounter CHF (congestive heart failure) Coronary artery disease High cholesterol History of atrial fibrillation History of CHF (congestive heart failure) History of echocardiogram History of hiatal hernia History of pain when walking History of steroid therapy History of stress test History of stroke Hyperlipidemia Hypertension Hypertension Kidney stone Non-smoker Osteoarthritis Personal history of colon cancer Personal history of colon cancer, stage III Skin lesion of face Stroke/cerebrovascular accident Wears glasses Home Medications carvedilol 25 mg PO BID 08/11/13 [History Last Taken 05/26/21] clonazepam 0.5 mg PO TID 08/11/13 [History Last Taken 05/26/21] digoxin 125 mcg PO DAILY 08/11/13 [History Last Taken 05/26/21] furosemide 40 mg PO DAILY 08/11/13 [History Last Taken 05/26/21] losartan 100 mg PO DAILY 08/11/13 [History Last Taken 05/26/21] potassium chloride 10 meq PO DAILY 08/11/13 [History Last Taken 05/26/21] ascorbic acid (vitamin C) 500 mg PO DAILY@0800 07/11/15 [History Last Taken 05/26/21] aspirin 81 mg PO QHS 07/11/15 [History Last Taken 05/26/21] vit C,G-Rk-edwen-lutein-zeaxan [PreserVision AREDS-2] 1 tab PO BID 02/24/21 [History Last Taken 05/26/21] warfarin [Coumadin] 3 mg PO DAILY 05/27/21 [History Last Taken 05/26/21] Allergy/AdvReac Type Severity Reaction Status Date / Time KALEIGH Inhibitors AdvReac Other Verified 05/27/21 05:48 levofloxacin [From Levaquin] AdvReac aching Verified 05/27/21 05:48 legs trouble walking Family History Father Hypertension Heart disease Surgical History History of ankle fusion History of cholecystectomy History of colon surgery History of colonoscopy (~2017) History of heart bypass surgery History of left hip replacement History of right knee joint replacement Hx of cataract surgery Status post implantation of automatic cardioverter/defibrillator (AICD) Social History Smoking Status: Never smoker alcohol intake: never substance use type: does not use ROS Constitutional Constitutional: Denies anorexia, change in weight, fever(s), night sweats or weakness Eyes Eyes: Denies blurry vision, change in vision, discharge from eye(s) or eye pain Cardiovascular Cardiovascular: Reports dyspnea on exertion and orthopnea; Denies chest pain, claudication, edema or palpitations Respiratory/Chest Respiratory/Chest: Reports shortness of breath at rest and shortness of breath with exertion; Denies cough or hemoptysis Gastrointestinal Gastrointestinal: Denies abdominal pain, constipation, diarrhea, hematemesis, hematochezia, melena, nausea or vomiting Genitourinary Genitourinary: Denies dysuria, hematuria, urinary frequency, urinary hesitancy, urinary incontinence or urinary urgency Musculoskeletal Musculoskeletal: Reports other Details: Patient has residual weakness in his left leg secondary to a past history of CVA ; Denies back pain, joint pain, joint stiffness, joint swelling, myalgias or neck pain Neurologic Neurologic: Denies abnormal gait, abnormal speech, dizziness, focal weakness, headache(s), loss of vision, numbness, other visual disturbances, paresthesias, syncope or tingling Psychiatric Psychiatric: Denies anxiety, cognitive impairment, depression, irritability, mood swings or suicidal ideation Endocrine Endocrinology: Denies change in body appearance, cold intolerance, excessive sweating, heat intolerance, polydipsia or polyuria Hematologic/Lymphatic Hematologic/Lymphatic: Denies none, anemia, easy bleeding, easy bruising or lymphadenopathy Allergic/Immunologic Allergic/Immunologic: Denies rhinitis, urticaria, eczemia or asthma Vital Signs Vital Signs Vital Signs: 05/27/21 05:40 05/27/21 05:43 05/27/21 05:45 Temperature 98.0 F 98.0 F Temperature Source Temporal Temporal Pulse Rate 78 75 Respiratory Rate 18 16 Respiratory Effort Respiratory Depth Blood Pressure 126/90 H 126/90 H Blood Pressure Mean 102 102 Blood Pressure Source Blood Pressure Position Blood Pressure Location Pulse Ox 92 90 90 Oxygen Delivery Method Room Air Room Air Room Air Oxygen Flow Rate (L/min) 05/27/21 05:53 05/27/21 07:07 05/27/21 07:26 Temperature 98.2 F 98.7 F Temperature Source Temporal Temporal Pulse Rate 73 75 Respiratory Rate 19 H 16 Respiratory Effort Short of Breath Labored Respiratory Depth Normal Blood Pressure 122/70 H 122/70 H Blood Pressure Mean 87 87 Blood Pressure Source Blood Pressure Position Blood Pressure Location Pulse Ox 92 95 Oxygen Delivery Method Nasal Cannula Nasal Cannula Room Air Oxygen Flow Rate (L/min) 2 2 05/27/21 08:20 Temperature 97.6 F L Temperature Source Oral Pulse Rate 75 Respiratory Rate 16 Respiratory Effort Respiratory Depth Blood Pressure 128/87 H Blood Pressure Mean 100 Blood Pressure Source Monitor Blood Pressure Position Semi-Fowlers Blood Pressure Location Right Arm Pulse Ox 98 Oxygen Delivery Method Room Air Oxygen Flow Rate (L/min) Weight Weight: 75 kg Body Mass Index (BMI) 30.2 Physical Exam Const alert, oriented x3, no apparent distress and healthy appearing General Appearance: cooperative, well kempt and well developed Orientation / Consciousness: awake, oriented to person, oriented to place and oriented to time HEENT normocephalic, head/scalp atraumatic, hearing grossly normal bilaterally and moist oral mucous membranes Eyes PERRL, EOMs intact bilaterally and conjunctivae normal Neck nuchal rigidity, supple, no JVD, thyroid normal and no carotid bruits General: trachea midline Resp normal respiratory effort and clear to auscultation bilaterally Auscultation: rales bilateral (Bilateral rales were noted on inspiration at the lung bases); Negative for rhonchi or wheezes Cardio regular rate, regular rhythm, S1 normal heart sound, S2 normal heart sound, no murmurs, no rub and no gallops GI normal to inspection, nondistended, normoactive bowel sounds, soft to palpation, non-tender and non-distended Extremity Extremity Narrative: Mild pitting edema is noted around the patient's ankles bilaterally Skin no rashes or lesions noted General Skin Exam: no breakdown Neuro oriented x3, CN's II-XII intact bilaterally, no focal motor deficits and no sensory deficits noted Sensorium / Orientation: awake and alert Speech: speech normal Psych thought process normal and affect normal Results Lab / Micro Data Result Diagrams: 05/27/21 05:50 05/27/21 05:50 Labs: Laboratory Results - last 24 hr 05/27/21 05:50: WBC 11.7 H, RBC 4.88, Hgb 15.3, Hct 46.3, MCV 94.9 H, MCH 31.4, MCHC 33.0, RDW Std Deviation 48.9 H, RDW Coeff of Abdirahman 14.1, Plt Count 180, MPV 10.6, Immature Gran % (Auto) 0.600, Neut % (Auto) 84.2 H, Lymph % (Auto) 6.5 L, Noble % (Auto) 6.1, Eos % (Auto) 2.3, Baso % (Auto) 0.3, Absolute Neuts (auto) 9.9 H, Absolute Lymphs (auto) 0.76 L, Nucleated RBC % 0 05/27/21 05:50: PT 26.9 H, INR 2.6 05/27/21 05:50: Sodium 137, Potassium 4.3, Chloride 106, Carbon Dioxide 24.0, Anion Gap 7, BUN 18, Creatinine 0.95, Estim Creat Clear Calc 53.95, Est GFR (MDRD) Af Amer 99, Est GFR (MDRD) Non-Af 81, BUN/Creatinine Ratio 19.0, Glucose 111 H, Calcium 8.8, Troponin I High Sens 18403 H* 05/27/21 05:50: B-Natriuretic Peptide 1240.6 H Radiology Impression Chest X-Ray 05/27/21 05:58 IMPRESSION: Infiltrates in the lower lungs are new and may be due to edema or pneumonia. Electronically Signed: Juan Smith MD at 6:35 EST Tel , Service support , Assessment & Plan Assessment/Plan (1) NSTEMI (non-ST elevated myocardial infarction): PLAN: 1. [id number] II NC-patient will be admitted to PCU, he will remain n.p.o., he will most likely have a cardiac catheterization done today. I talked with cardiology about his medical care. Patient states he is intolerant of statins due to muscle pain but he is not opposed to trying a low-dose statin during his hospitalization. #2 acute on chronic systolic congestive heart failure-patient will remain on IV Lasix #3 acute hypoxic respiratory failure-patient is on nasal cannula O2 at this time, he does not use home oxygen. #4 coronary artery disease with past history of cardiac bypass #5 ischemic cardiomyopathy with reduced EF-patient states that his ejection frac tion is low-he thinks it is in the 20s. Echocardiogram will be obtained #6 past history of colon cancer-patient had a diagnosis of colon cancer 5 years ago, he has been treated and at this point he is cancer free. He follows up with Dr. Bradley #7 cerebrovascular disease #8 paroxysmal atrial fibrillation-patient is currently on Coumadin, his INR is 2.6, patient is in sinus rhythm at this time #9 chronic use of 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 due to paroxysmal atrial fib #10 essential hypertension #11 hyperlipidemia-patient will be placed on low-dose statin Charges/Coding Visit Charges Inpatient E&M: 22451 Init Hosp L3
--- NOTE | 2021-05-27 09:10 | CASEMGMT ---
According to the [employer] website, the following are in-network tertiary facilities: [facility], [place], [facility], [facility], [facility], [facility], and . Kin ASCENCIO CM
[2021-05-27 09:38] LABS: Troponin-I HS 47705 pg/mL (3.0-78.0)
--- NOTE | 2021-05-27 09:53 | EKG12_ITS ---
Test Reason : Blood Pressure : / mmHG Vent. Rate : 070 BPM Atrial Rate : 070 BPM P-R Int : 214 ms QRS Dur : 180 ms QT Int : 468 ms P-R-T Axes : 042 228 021 degrees QTc Int : 505 ms Sinus rhythm with 1st degree A-V block with occasional Premature ventricular complexes Indeterminate axis Right bundle branch block Inferior infarct , age undetermined Anterolateral infarct , age undetermined Abnormal ECG Confirmed by SOPHIA RAO, FREDA ([id number]), makeup editor LUCERO ESTRADA ([id number]) on 05/28/2021 10:03:36 AM Referred By: NEETA Confirmed By:FREDA CORTES MD
--- NOTE | 2021-05-27 10:45 | CASEMGMT ---
SONU MORENO assessment: Face to Face with patient for initial transition planning/care coordination assessment. SONU MORENO introduced self and role at [facility], pt voices understanding and consents to assessment. Pt is lying in bed in no distress on room air. Pt is A/Ox4 and answers all questions appropriately. Care providers, pharmacy, and demographics verified. Presentation: Pt c/o SOB/crackles last night with pain into back Admitting dx: NSTEMI, CHF PCP: Lico Specialists: Venancio, cardio; Mirna, onc Preferred Pharmacy: [facility] [place] Insurance: [facility] Prescription Benefit: [facility] Living Will/HPOA: Pt has LW/HPOA and is aware that they are not on file at [facility]. Pt's son, Ananda Coronel, is HPOA. LNOK: Ananda Coronel, son; David Coronel, son; Scot Coronel, son; Monserrat Coronel, Living Arrangements: Pt lives in 1 story home with 4 steps in and states no concerns at home. Pt is independent with ADL's. Transportation: Pt states drives self and states no transportation concerns. DME/HHC: Pt has the following DME: cane and walker. Pt states no need for any further DME. Pt also states has [facility] that downloads info from his pacer/defibrillator. Pt states no hx of SNF, but has had HHC in past s/p knee replacement. Pt states has also had OP therapy in past. Pt states no concerns with going home at time of discharge. Pt is retired. Pt states does not smoke cigarettes or drink ETOH. Pt voices no further concerns/needs. CM to follow for any further discharge planning/needs. Advised pt to ask for CM if any further questions/concerns/need arise, voices understanding. Pt Goal: Home Plan: Home [place] SONU MORENO
[2021-05-27] MEDS: 0.9% Normal Saline 1,000 ML 15 ML IV (11:15)
--- NOTE | 2021-05-27 11:15 | NURSING ---
Gave report to Kecia ASCENCIO in engineering laboratory technician
--- NOTE | 2021-05-27 13:15 | CL.D_ITS ---
Patient Name: DARRELL PRIETO Study Date: 05/27/2021 Performing: iMguel Farley MD Ht: 61.81 inches 157 cm : 1940 Wt: 165.35 lbs 75 kg Age: 81 Gender: male BSA: 1.76 PROCEDURE(S) PERFORMED RO55-HCZ/COR/CABG DC11-AO ROOT ANGIO WITH HEART CATH CLINICAL PROFILE AND INDICATIONS Indications: ACS <= 24 hrs Heart Failure: NYHA Class: 3, Newly Diagnosed: Yes, Heart Failure Type: Systolic Stress/Imaging Stress/Image Study Performed: No CONCLUSIONS Severe little traverse vessel disease with occluded little traverse coronary arteries. Patent left internal mammary artery to left anterior descending artery supplying collaterals to the d istal right coronary artery as well as the diagonal vessel. Saphenous vein graft to the obtuse marginal vessel with high-grade stenosis noted at the anastomotic site and little traverse vessel disease as described above. RECOMMENDATIONS Referred for immediate PCI DESCRIPTION OF PROCEDURE The patient arrived to the procedure lab. The risks and benefits of the procedure as well as a full d escription of our services here and current unavailability of surgical backup were fully explained to the patient and/or their significant other prior to the catheterization. The Timeout was completed, verifying the correct patient and procedure. The patient's procedural site was prepped and draped in the usual fashion. Local anesthetic was given subcutaneously to left radial region with Lidocaine 2%. Using a modified Seldinger technique, arterial access was obtained via the left radial artery, a 6Fr sheath was inserted. Left internal mammary artery graft to the LAD selective angiography was perfor med in multiple views using a 5 Fr. IM catheter. Left Coronary Artery selective angiography was perfo rmed in multiple views using a 5 Fr. JL4 catheter. Right Coronary Artery selective angiography was th en performed in multiple views using a 5 Fr. 3DRC (Lauro) catheter. Ascending (root) aorta selective angiography was then performed in single view. Ascending (root) aorta selective angio graphy was then performed in single view. Saphenous Vein graft to the Circumflex selective angiograph y was performed in multiple views using a 5 Fr. JR 4 catheter. CORONARY ANGIOGRAPHY DOMINANCE: Left Dominant LEFT HEART ASSESSMENT Left Ventricular Ejection Fraction: by Echo 15 % Depressed Left Ventricular systolic function LEFT MAIN: is occluded LEFT ANTERIOR DESCENDING ARTERY: is occluded CIRCUMFLEX ARTERY: OSTIAL CIRC: is occluded RIGHT CORONARY ARTERY: PROX RCA: is occluded GRAFTS: ARIZMENDI graft to the Mid LAD is patent Saphenous Vein graft to the RCA is totally occluded Saphenous Vein graft to the CIRC Is patent with anastomotic lesion of approximately 95% and a little traverse vessel stenosis of approximately 50% in the proximal OM branch and 75% in the distal OM branch. COLLATERAL FLOW: Collateral flow from Left to Right Collateral flow from Left to Left COMPLICATIONS PROCEDURE MEDICATIONS Fentanyl 50 mcg IV Versed 1 mg IV Oxygen: 2 L/min via nasal cannula Heparin 6000 unit(s) IV 05/27/2021 13:03:57 Verapamil 2.5mg, Ntg 100mcgs given IA 05/27/2021 12:25:28 SUMMARY OF HEMODYNAMIC DATA Time AIR REST ECG 11:51:14 AO 120/66 (85) SA 12:29:56 Signed By Miguel Farley MD On 05/27/2021 13:14:11 Miguel Farley MD
[2021-05-27] MEDS: 0.9% Saline Lock 10 ML Syringe IV (14:22)
--- NOTE | 2021-05-27 16:00 | EKG12_ITS ---
Test Reason : PCI Blood Pressure : / mmHG Vent. Rate : 059 BPM Atrial Rate : 059 BPM P-R Int : 222 ms QRS Dur : 180 ms QT Int : 488 ms P-R-T Axes : 040 -30 005 degrees QTc Int : 483 ms Sinus bradycardia with 1st degree A-V block Indeterminate axis Right bundle branch block Inferior infarct , age undetermined Anterolateral infarct , age undetermined Abnormal ECG When compared with ECG of 28-MAY-2021 04:38, MANUAL COMPARISON REQUIRED, DATA IS UNCONFIRMED Confirmed by MIRTHA RAO, RAE ([id number]), editor department LUCERO ESTRADA ([id number]) on 05/28/2021 1:04:09 PM Referred By: SOPHIA Confirmed By:RAE SHANNON MD
[2021-05-27] MEDS: 0.9% Normal Saline 1,000 ML 60 ML IV (16:15)
[2021-05-27 18:03] LABS: Troponin-I HS 42789 pg/mL (3.0-78.0)
--- NOTE | 2021-05-27 19:52 | PCM.HOSP.N ---
Hospitalist Note Patient underwent cardiac catheterization today, he had a stent placed in the circumflex graft, I talked briefly with interventional cardiology codie, patient will be taken off of IV Lasix for now and will resume his oral Lasix tomorrow, I wrote for the patient's other medications. Patient was placed on low-dose statin.
[2021-05-27] MEDS: Multivitamin (Healthy Eyes) Capsule 1 CAP PO (21:51)
[2021-05-27] MEDS: Atorvastatin Calcium 10 MG Tablet PO (21:51)
[2021-05-27] MEDS: Carvedilol 25 MG Tablet PO (21:51)
[2021-05-27] MEDS: clonazePAM 0.5 MG Tablet PO (21:55)
[2021-05-28 03:00] VITALS: PULSE 66
[2021-05-28 03:45] VITALS: O2SAT 95
[2021-05-28 03:48] VITALS: BP 108/57; PULSE 62; RESP 18; TEMP 36.7; O2SAT 95
[2021-05-28] MEDS: clonazePAM 0.5 MG Tablet PO ×2 (05:30→13:15)
[2021-05-28 06:11] LABS: Hematocrit 42.7 % (40-54); Hemoglobin 13.9 g/dL (13.0-16.5); Mean Corp Hgb Conc 32.6 g/dL (32-36); Mean Corpuscular Hgb 31.1 pg (27.0-32.0); Mean Corpuscular Volume 95.5 fL (80-94); Platelet Count 146 K/mm3 (150-450); RBC Distribution Width CV 14.4 % (11.6-14.6); RBC Distribution Width SD 49.8 fl (35.1-43.9); Red Blood Count 4.47 M/mm3 (4.6-6.2)
[2021-05-28 07:00] VITALS: PULSE 61
[2021-05-28 07:02] LABS: ALB/GLOB Ratio 0.9 RATIO (0.9-2.4); AST(SGOT) 178 U/L (15-37); Alanine Aminotransfer ALT/SGPT 38 U/L (16-61); Alkaline Phosphatase 72 U/L (45-117); Anion Gap 4 (5-15); BUN 19 mg/dL (7-18); BUN/Creat Ratio 20.8 RATIO (10-20); Calcium,Total 8.5 mg/dL (8.5-10.1); Chloride 105 mmol/L (98-107); Creatinine, Serum 0.91 mg/dL (0.70-1.30); EST Glomerular Filtration Rate 85 mL/min (>60); Est Glom Filt Rate - Afr Amer 103 mL/min (>60); Globulin 3.3 g/dL (2.2-4.2); Glucose 115 mg/dL (74-106); Potassium 3.1 mmol/L (3.5-5.1); Protein, Total 6.3 g/dL (6.4-8.2); Sodium Level 141 mmol/L (136-145)
--- NOTE | 2021-05-28 07:37 | PN.CARD_ITS ---
Objective Data Vital Signs: Vital Signs Temp Pulse Resp BP Pulse Ox 98.1 F 61 18 108/57 L 95 05/28/21 03:48 05/28/21 07:00 05/28/21 03:48 05/28/21 03:48 05/28/21 03:48 Oxygen Flow Rate (L/min) 2 Oxygen Delivery Method Nasal Cannula Weight: 165 lb 5.547 oz Body Mass Index (BMI) 30.2 Intake & Output: Intake and Output for Last 24 Hours 05/26/21 05/27/21 05/28/21 23:59 23:59 23:59 Intake Total 840 / 1140 600 / 600 Output Total 2380 / 2380 Balance -1540 / -1240 600 / 600 Lab / Micro Data Result Diagrams: 05/28/21 05:34 05/28/21 05:34 Labs: Laboratory Results - last 24 hr 05/27/21 08:54: Troponin I High Sens 92334 H* 05/27/21 11:50: Troponin I High Sens 07995 H* 05/28/21 05:34: WBC 8.0, RBC 4.47 L, Hgb 13.9, Hct 42.7, MCV 95.5 H, MCH 31.1, MCHC 32.6, RDW Std Deviation 49.8 H, RDW Coeff of Abdirahman 14.4, Plt Count 146 L, MPV 11.0 05/28/21 05:34: Sodium 141, Potassium 3.1 L, Chloride 105, Carbon Dioxide 32.0, Anion Gap 4 L, BUN 19 H, Creatinine 0.91, Estim Creat Clear Calc 50.00, Est GFR (MDRD) Af Amer 103, Est GFR (MDRD) Non-Af 85, BUN/Creatinine Ratio 20.8 H, Glucose 115 H, Calcium 8.5, Total Bilirubin 1.80 H, AST 178 H, ALT 38, Alkaline Phosphatase 72, Total Protein 6.3 L, Albumin 3.0 L, Globulin 3.3, Albumin/Globulin Ratio 0.9 Cardiology Labs/Tests 05/28/21 05:34: WBC 8.0, RBC 4.47 L, Hgb 13.9, Hct 42.7, MCV 95.5 H, MCH 31.1, MCHC 32.6, Plt Count 146 L, MPV 11.0 05/28/21 05:34: Sodium 141, Potassium 3.1 L, Chloride 105, Carbon Dioxide 32.0, Anion Gap 4 L, BUN 19 H, Creatinine 0.91, Est GFR (MDRD) Af Amer 103, Est GFR (MDRD) Non-Af 85, BUN/Creatinine Ratio 20.8 H, Glucose 115 H, Calcium 8.5, Total Bilirubin 1.80 H Rhythm: EKG: ECHO: Stress Test: Cardiac Cath: PCI: CT Surgery: Holter monitor: EPS: PPM: CXR: Chest CT Scan: Radiography Diagnostic Testing: Radiology Impression Echocardiogram 05/27/21 07:31 Interpretation Summary The estimated ejection fraction is 25 %. Severe segmental systolic dysfunction (see wall motion). Moderate (2+) eccentric mitral valve insufficiency. Stage 2 diastolic dysfunction. Moderately dilated left ventricle. Ordering Physician: Miguel Farley Referring Physician: Van Barfield Performed By: Artemio Lopez RCS Physical Exam Const alert, oriented x3 and no apparent distress General Appearance: cooperative HEENT hearing grossly normal bilaterally Head and Scalp: atraumatic Eyes EOMs intact bilaterally Neck General: normal visual inspection Chest inspection of chest normal and palpation of chest normal Resp normal respiratory effort Auscultation: clear to auscultation bilaterally Cardio regular rate, regular rhythm, S1 normal heart sound and S2 normal heart sound Jugular Venous Distention: JVD GI normal to inspection, nondistended, normoactive bowel sounds Extremity normal capillary refill and no pedal edema Peripheral Pulses: Yes pulses 2+ throughout and femoral pulses present Skin no rashes or lesions noted Neuro oriented x3 and CN's II-XII intact bilaterally Psych Appearance: grossly normal and appropriate Assessment & Plan Assessment/Plan (1) NSTEMI (non-ST elevated myocardial infarction): PLAN: He presents with back discomfort and chest discomfort and has cardiac enzymes which are suggestive of a non-ST elevation myocardial infarction. * The cardiac catheterization results as noted below. * This morning the patient is doing well and can be discharged for outpatient follow-up with his primary blanket cutting machine operator Dr. Amezcua (2) CHF (congestive heart failure): PLAN: He does have a history of congestive heart failure. He has been on oral Lasix. At this time with his elevated natruretic peptide I would suggest that we start him on IV Lasix 40 mg a day. * His left ventricular systolic function is noted to be rather low at 15% * He will be on the carvedilol as well * May consider the addition of spironolactone (3) History of atrial fibrillation: PLAN: He does have a history of atrial fibrillation flutter. He appears to be in paroxysms of the above. * Anticoagulation will be continued once his procedure has been done. (4) Hypertension: QUALIFIERS: Hypertension type: essential hypertension Qualified Code(s): I10 - Essential (primary) hypertension PLAN: His blood pressure is under good control at this time and no changes will be made with respect to his medications. (5) Hyperlipidemia: QUALIFIERS: Hyperlipidemia type: unspecified Qualified Code(s): E78.5 - Hyperlipidemia, unspecified PLAN: He does have a history of hyperlipidemia and will continue with aggressive risk factor modification. (6) Status post implantation of automatic cardioverter/defibrillator (AICD): PLAN: He does have a [employer] implantable defibrillator. He has been having this interrogated at the [facility] and we will continue to follow. At this time it does not appear that there has been any indication of defibrillator discharge. (7) LV (left ventricular) mural thrombus: PLAN: He does have a previous history of left ventricular mural thrombus. We will reevaluate the above with an echocardiogram. Depending on the findings further recommendations will be made. Addendum: Cardiac catheterization demonstrated still occluded left main coronary artery. Left anterior descending artery is totally occluded. Right coronary artery was totally occluded. Left internal mammary artery to left anterior descending artery is patent supplying collaterals to the distal right coronary artery and a diagonal vessel. The distal left anterior descending artery was noted to be patent. Saphenous vein graft to right coronary artery was noted to be previously occluded. Saphenous vein graft to the obtuse marginal branch was noted to be patent with anastomotic 95 to 99% stenosis and [place] vessel 50% mid stenosis and distal 75% stenosis. Severe left ventricular systolic dysfunction is noted with an estimated ejection fraction of 15% with an akinetic inferior wall as well as posterior wall. Based on the above angiographic findings the patient went successful PCI of the saphenous vein graft to the OM branch. This morning is doing well and can be discharged for outpatient follow-up
--- NOTE | 2021-05-28 08:06 | CRPHASE1_ITS ---
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 Cardiac rehabilitation programs are recognized as integral to the continued care of the patient with coronary heart disease. The cardiac rehabilitation program is designed to optimize a patient's physical, psychological, and social functioning. Health resident care manager rn work in cardiac rehabilitation programs and assist you with getting the treatments you need to get stronger and healthier - like exercise, healthy eating habits, and medications. Cardiac rehabilitation has been show to help people with heart problems live longer and have better life enjoyment than people who do not go to cardiac rehabilitation. Please contact the Cardiac Rehabilitation Program at [facility] at in two weeks if you have not heard from them.
--- NOTE | 2021-05-28 08:08 | CRPH1.INSTRU ---
General Education CAD and cardiac anatomy and function:: Patient communicates acknowledgment Explanation of diagnoses and procedures:: Patient communicates acknowledgment Sign/Symptoms of [place]:: Patient communicates acknowledgment Antiplatelet therapy: Patient communicates acknowledgment Smoking Patient Nicotine/Smoking Risk Factors Are:: Never smoked Dyslipidemia Patient Dyslipidemia Risk Factors Are:: Total Cholesterol, Triglycerides, HDL, LDL Recommendations Include:: Lipid profile provided, Reviewed NCEP/ATP guidelines, Therapeutic Lifestyle Change dietary guidelines Dyslipidemia Response Code:: Patient communicates acknowledgment Overweight/Obesity Patient Overweight/Obesity Risk Factors Are:: Obesity - > or = 30 Recommendations Include:: Weight loss of 5-10%, Reduced calorie diet, Exercise 5-7 times/week Overweight/Obesity:: Patient communicates acknowledgment Hypertension Recommendations Include:: Maintain BP <130/85, DASH dietary guidelines, Decrease/maintain normal body weight, Moderation of ETOH Hypertension:: Patient communicates acknowledgment Diabetes Patient Diabetes Risk Factors Are:: No documented hx of diabetes Sedentary Patient Sedentary Risk Factors Are:: Lack of regular exercise Recommendations Include:: Aerobic exercise 5-7 times/week for 20-30 minutes continuously, Benefits of regular exercise, Discussed home walking program, Monitored Outpatient Cardiac Rehab Sedentary Response Code:: Patient communicates acknowledgment Stress Patient Stress Risk Factors Are:: Patient denies stress as a risk factor
[2021-05-28 09:15] VITALS: BP 124/75; PULSE 62; PULSE 63; RESP 16; TEMP 36.3; O2SAT 94
[2021-05-28] MEDS: Aspirin E.C. 81 MG Tablet PO (09:15)
[2021-05-28] MEDS: Ascorbic Acid 500 MG Tablet PO (09:15)
[2021-05-28] MEDS: Digoxin 125 MCG Tablet PO (09:15)
[2021-05-28] MEDS: Potassium Chloride Oral Tablet 10 MEQ PO (09:15)
[2021-05-28] MEDS: Losartan Potassium 100 MG Tablet PO (09:16)
[2021-05-28] MEDS: Multivitamin (Healthy Eyes) Capsule 1 CAP PO (09:16)
[2021-05-28] MEDS: Carvedilol 25 MG Tablet PO (09:16)
[2021-05-28] MEDS: Furosemide 40 MG Tablet PO (09:16)
[2021-05-28] MEDS: Clopidogrel Bisulfate 75 MG Tablet PO (09:18)
--- NOTE | 2021-05-28 10:00 | EKG12_ITS ---
Test Reason : AM EKG Blood Pressure : / mmHG Vent. Rate : 061 BPM Atrial Rate : 060 BPM P-R Int : 000 ms QRS Dur : 208 ms QT Int : 500 ms P-R-T Axes : 000 048 254 degrees QTc Int : 503 ms Ventricular-paced rhythm Abnormal ECG Confirmed by SOPHIA RAO, FREDA ([id number]), managing editor LUCERO ESTRADA ([id number]) on 05/28/2021 1:18:44 PM Referred By: LIZABETH Confirmed By:FREDA CORTES MD
--- NOTE | 2021-05-28 12:41 | CL.I_ITS ---
Patient Name: DARRELL PRIETO Study Date: 05/27/2021 Performing: Get Ahumada MD Ht: 62 inches 157 cm : 1940 Wt: 165.6 lbs 75 kg Age: 81 Gender: male BSA: 1.76 PROCEDURE(S) PERFORMED DC11-AO ROOT ANGIO WITH HEART CATH [id number] AND/OR PTCA, SINGLE GRAFT CLINICAL PROFILE AND CO-MORBIDITIES Indications: ACS <= 24 hrs Heart Failure: NYHA Class: 3, Newly Diagnosed: Yes, Heart Failure Type: Systolic Stress/Imaging Stress/Image Study Performed: No CONCLUSIONS Successful PCI with ZAHRA to SVG to OM RECOMMENDATIONS DESCRIPTION OF PROCEDURE The patient arrived to the procedure lab. The risks and benefits of the procedure as well as a full d escription of our services here and current unavailability of surgical backup were fully explained to the patient and/or their significant other prior to the catheterization. The Timeout was completed, verifying the correct patient and procedure. The patient's procedural site was prepped and draped in the usual fashion. Local anesthetic was given subcutaneously to left radial region with Lidocaine 2% Using a modified Seldinger technique,arterial access was obtained via the left radial artery, a 6Fr s sabrina was inserted. Left internal mammary artery graft to the LAD selective angiography was performed in multiple views using a 5 Fr. IM catheter. Left Coronary Artery selective angiography was performe d in multiple views using a 5 Fr. JL4 catheter. Right Coronary Artery selective angiography was then performed in multiple views using a 5 Fr. 3DRC (Lauro) catheter. Ascending (root) aorta selective angiography was then performed in single view. Ascending (root) aorta selective angiography was then performed in single view. Saphenous Vein graft to the Circumflex selective angiography was performed in multiple views using a 5 Fr. JR 4 catheter.The images were reviewed and options discusse d. A decision was then made to proceed with an Intervention, IVUS or other adjunct procedure. Arterial sheath was exchanged for a 6 Fr Sheath. AL1 Guide catheter was inserted and engaged into the SVG to the Circumflex. BMW Guide wire was advanced to the SVG TO THE CIRC 3.0X12 EMERGE Balloon catheter was inserted. Balloon catheter was advanced across lesion in the graft to the Circumflex. An giogram performed pre balloon dilatation. PTCA balloon inflated at 6 atms for 12 secs. PTCA balloon i nflated at 6 atms for 8 secs. Angiogram performed post balloon dilatation. 3.0X26 ORSIRO Drug Eluting stent was inserted. Drug Eluting stent was advanced across the lesion in the graft to the Circumflex . Angiogram performed pre stent deployment. Angiogram performed post stent deployment. 4.0X18 ORSIRO Drug Eluting stent was inserted. Drug Eluting stent was advanced across the lesion in the graft to th e Circumflex. Angiogram performed pre stent deployment. Post stent, balloon catheter was inserted 3.5 0X20 NC EMERGE Angiogram performed post balloon dilatation. 4.0X12 NC EMERGE Balloon catheter was inserted post stent. Angiogram performed pre balloon dilatation. Angiogram performed pos t balloon dilatation. 4.0X15 ORSIRO Drug Eluting stent was inserted. Drug Eluting stent was advanced across the lesion in the graft to the Circumflex. Angiogram performed post stent deployment. 4.0X9 OR SIRO Drug Eluting stent was inserted. Drug Eluting stent was advanced across the lesion in the graft to the Circumflex. Angiogram performed post stent deployment. The arterial sheath was pulled and a TR Band was applied for hemostasis - 14CC AIR INTERVENTION INFORMATION LESION SITE: Vein > to Circumflex (Mid) Segment Number: 73-Pnu-eofrmqhpir artery segment - mCIRC , Lesion Location: DISTAL Lesion Complexity: High/C, chronic total occlusion: No, lesion at bifurcation: No, thrombus present: No, lesion length: 35 mm, culprit lesion: Yes, Previously treated lesion: No Pre Stenosis: 99 % Pre intervention YEMI flow: 2 PROCEDURE: Drug Eluting Stent with pre and post dilatation Post Stenosis: 0 % Post intervention YEMI flow: 3 Lesion Devices: Bacon .014 BMW [place] Straight 190cm Medtronic 6 Fr AL1.0 100cm Guide Catheter Josef Sci EMERGE MR 3.00x12 BALLOON Biotronik Orsiro MR ZAHRA 3.0x26 Biotronik Orsiro MR ZAHRA 4.0x18 Josef Sci NC EMERGE MR 3.50x20 BALLOON Josef Sci NC EMERGE MR 4.00x12 BALLOON LESION SITE: Vein > to Circumflex (Mid) Segment Number: [id number]-Xoc-siujhhgpsw artery segment - mCIRC , Lesion Location: OSTIAL Lesion Complexity: High/C, chronic total occlusion: No, lesion at bifurcation: No, thrombus present: No, lesion length: 12 mm, culprit lesion: Yes, Previously treated lesion: No, In-stent restenosis: No Pre Stenosis: 70 % Pre intervention YEMI flow: 3 PROCEDURE: Drug Eluting Stent with pre dilatation. Post Stenosis: 0 % Post intervention YEMI flow: 3 Lesion Devices: Bacon .014 BMW [place] Straight 190cm Medtronic 6 Fr AL1.0 100cm Guide Catheter Biotronik Orsiro MR ZAHRA 4.0x15 Biotronik Orsiro MR ZAHRA 4.0x9 COMPLICATIONS No Complications PROCEDURE MEDICATIONS Fentanyl 50 mcg IV Versed 1 mg IV Oxygen: 2 L/min via nasal cannula Heparin 6000 unit(s) IV 05/27/2021 13:03:57 Plavix 600 mg PO 05/27/2021 13:47:48 Verapamil 2.5mg, Ntg 100mcgs given IA 05/27/2021 12:25:28 SUMMARY OF HEMODYNAMIC DATA Time AIR REST ECG 11:51:14 AO 120/66 (85) SA 12:29:56 Signed By Get Ahumada MD On 05/28/2021 12:40:36 Get Ahumada MD
--- NOTE | 2021-05-28 13:10 | PCM.DC ---
Discharge Instructions Diet Discharge Diet: Low fat / Low cholesterol Activity Discharge Activity: Return to Normal Activity Dressing / Incision Call your doctor if your incision/area has: Continuous Slow Oozing, Sudden Increased Bleeding and Increased Pain/ Swelling Call your doctor if you observe: Shortness of breath and Chest pain Follow Up Care Test Results: Test results from this visit will be discussed in further detail at your follow-up appointment, if applicable. Discharge Plan Admission Admit Date/Time: 05/27/21 08:13 Primary Reason for Your Visit: NSTEMI Attending Provider: Fercho Tristan Primary Care Provider: Ghanshyam Barfield Consulting Providers: Miguel Farley Discharge Orders/Prescriptions Prescriptions: New atorvastatin 40 mg tablet 10 mg PO QHS Qty: 30 RF: 0 clopidogrel 75 mg Tablet 75 mg PO DAILY Qty: 30 RF: 0 Continued losartan 50 MG tablet 100 mg PO DAILY RF: 0 furosemide 40 MG tablet 40 mg PO DAILY RF: 0 carvedilol 25 MG tablet 25 mg PO BID RF: 0 clonazepam 0.5 MG tablet 0.5 mg PO TID RF: 0 digoxin 125 MCG tablet 125 mcg PO DAILY RF: 0 potassium chloride 10 MEQ tablet 10 meq PO DAILY RF: 0 aspirin 81 MG tablet 81 mg PO QHS RF: 0 ascorbic acid (vitamin C) 500 MG tablet 500 mg PO DAILY@0800 RF: 0 PreserVision AREDS-2 250-90-40-1 mg Capsule 1 tab PO BID RF: 0 warfarin 3 mg Tablet 3 mg PO DAILY RF: 0 Referrals / Follow Up: Ghanshyam Barfield MD [Primary Care Provider] - Disposition Disposition (needs filled in before D/C Order can be placed): Home, Self Care
--- NOTE | 2021-05-28 13:15 | DS.PCM_ITS ---
Providers Date of Admission: 05/27/21 Primary Care Physician: Dr. Ghanshyam Barfield MD Consultations 05/27/21 08:38 Consult: Cardiology Routine Consulting Provider: Miguel Farley Reason for Consult: NSTEMI EMERGENT Consult: No MD Notified: Yes Date Notified: 05/27/21 Time Notified: 08:27 Method of Notification: Verbal Reason For Visit: NSTEMI, CHF Diagnosis Discharge Diagnosis (1) NSTEMI (non-ST elevated myocardial infarction): Status: Acute Code(s): I21.4 - Non-ST elevation (NSTEMI) myocardial infarction (2) CHF (congestive heart failure): Status: Deleted Code(s): I50.9 - Heart failure, unspecified (3) History of atrial fibrillation: Status: Acute Code(s): Z86.79 - Personal history of other diseases of the circulatory system (4) Hypertension: Status: Deleted Code(s): I10 - Essential (primary) hypertension Qualifiers: Hypertension type: essential hypertension Qualified Code(s): I10 - Essential (primary) hypertension (5) Hyperlipidemia: Status: Chronic Code(s): E78.5 - Hyperlipidemia, unspecified Qualifiers: Hyperlipidemia type: unspecified Qualified Code(s): E78.5 - Hyperlipidemia, unspecified (6) Status post implantation of automatic cardioverter/defibrillator (AICD): Status: Deleted Code(s): Z95.810 - Presence of automatic (implantable) cardiac defibrillator (7) LV (left ventricular) mural thrombus: Status: Acute Code(s): I51.3 - Intracardiac thrombosis, not elsewhere classified (8) HFrEF (heart failure with reduced ejection fraction): Status: Acute Code(s): I50.20 - Unspecified systolic (congestive) heart failure Medications at Discharge Home Medications carvedilol 25 mg PO BID 08/11/13 clonazepam 0.5 mg PO TID 08/11/13 digoxin 125 mcg PO DAILY 08/11/13 furosemide 40 mg PO DAILY 08/11/13 losartan 100 mg PO DAILY 08/11/13 potassium chloride 10 meq PO DAILY 08/11/13 ascorbic acid (vitamin C) 500 mg PO DAILY@0800 07/11/15 aspirin 81 mg PO QHS 07/11/15 PreserVision AREDS-2 1 tab PO BID 02/24/21 warfarin 3 mg PO DAILY 05/27/21 atorvastatin 10 mg PO QHS #30 tab 05/28/21 clopidogrel 75 mg PO DAILY #30 tab 05/28/21 Hospital Course Operations None Procedures 2-D Echocardiogram and Cardiac catheterization Summary of Care Provided Minutes Spent on Discharge: 35 Hospital Course: 81-year-old male presents with increasing shortness of breath. Did not have chest pain but did have upper back pain. Patient was found to have elevated BNP of 1240, troponin of 49,943. Patient was taken to cardiac Corporate Travel Coordinator and had chronically occluded left main, occluded left anterior descending, occluded right coronary artery, patent left internal mammary artery to left anterior descending, saphenous vein graft to the right coronary artery occluded, saphenous vein graft to obtuse marginal was noted to have 95 to 99% stenosis. The latter was stented. Patient otherwise did well. Patient had echocardiogram that showed an EF of 25%. Patient will be discharged with follow-up suctions with his cloth sander, Dr. Craft. Patient will be discharged with atorvastatin plus clopidogrel in addition to his other medications. Physical Exam Const alert HEENT normocephalic Resp normal respiratory effort, no retractions, no use of accessory muscles and clear to auscultation bilaterally Cardio regular rate, regular rhythm, S1 normal heart sound and S2 normal heart sound GI normal to inspection, nondistended, normoactive bowel sounds, soft to palpation, non-tender and non-distended Neuro oriented x3 Sensorium / Orientation: awake, alert and oriented to person Weight / BMI Weight Weight: 75 kg Body Mass Index (BMI) 30.2 ABG / Lab / Microbiology Data Result Diagrams: 05/28/21 05:34 05/28/21 05:34 Laboratory: Laboratory Results - last 24 hr 05/27/21 11:50: Troponin I High Sens 11096 H* 05/28/21 05:34: WBC 8.0, RBC 4.47 L, Hgb 13.9, Hct 42.7, MCV 95.5 H, MCH 31.1, MCHC 32.6, RDW Std Deviation 49.8 H, RDW Coeff of Abdirahman 14.4, Plt Count 146 L, MPV 11.0 05/28/21 05:34: Sodium 141, Potassium 3.1 L, Chloride 105, Carbon Dioxide 32.0, Anion Gap 4 L, BUN 19 H, Creatinine 0.91, Estim Creat Clear Calc 50.00, Est GFR (MDRD) Af Amer 103, Est GFR (MDRD) Non-Af 85, BUN/Creatinine Ratio 20.8 H, Glucose 115 H, Calcium 8.5, Total Bilirubin 1.80 H, AST 178 H, ALT 38, Alkaline Phosphatase 72, Total Protein 6.3 L, Albumin 3.0 L, Globulin 3.3, Albumin/Globulin Ratio 0.9 D/C Instructions Discharge Diet: Low fat / Low cholesterol Call your doctor if your incision/area has: Continuous Slow Oozing, Sudden Increased Bleeding and Increased Pain/ Swelling Call your doctor if you observe: Shortness of breath and Chest pain Meaningful Use Info Meaningful Use Diagnoses (Choose all that apply): AMI and CHF AMI/Post PCI/Angioplasty Aspirin given w/in 24hrs of arrival?: Yes ASA at discharge?: Yes Statins at discharge?: Yes Nahid/ARB at discharge?: Yes Beta Brenda at discharge?: Yes Done w/ Acute WA measure.: Yes CHF NAHID/ARB ordered at discharge?: Yes Documented LVEF (%): 25 Discharge Plan Admission Admit Date/Time: 05/27/21 08:13 Primary Reason for Your Visit: NSTEMI Attending Provider: Fercho Tristan Primary Care Provider: Ghanshyam Barfield Consulting Providers: Miguel Farley Discharge Orders/Prescriptions Prescriptions: New atorvastatin 40 mg tablet 10 mg PO QHS Qty: 30 RF: 0 clopidogrel 75 mg Tablet 75 mg PO DAILY Qty: 30 RF: 0 Continued losartan 50 MG tablet 100 mg PO DAILY RF: 0 furosemide 40 MG tablet 40 mg PO DAILY RF: 0 carvedilol 25 MG tablet 25 mg PO BID RF: 0 clonazepam 0.5 MG tablet 0.5 mg PO TID RF: 0 digoxin 125 MCG tablet 125 mcg PO DAILY RF: 0 potassium chloride 10 MEQ tablet 10 meq PO DAILY RF: 0 aspirin 81 MG tablet 81 mg PO QHS RF: 0 ascorbic acid (vitamin C) 500 MG tablet 500 mg PO DAILY@0800 RF: 0 PreserVision AREDS-2 250-90-40-1 mg Capsule 1 tab PO BID RF: 0 warfarin 3 mg Tablet 3 mg PO DAILY RF: 0 Referrals / Follow Up: Ghanshyam Barfield MD [Primary Care Provider] - Within 2 Weeks Alexis Craft MD [NON-STAFF] - Within 1 Month Disposition Disposition (needs filled in before D/C Order can be placed): Home, Self Care Charges/Coding Visit Charges Inpatient E&M: 96637 Disch Hosp
[2021-05-28 13:23] VITALS: BP 86/46; PULSE 60; RESP 16; TEMP 36.7; O2SAT 94
== END 2021-05-28 13:57 | disposition home or self-care (01) | DRG 246 ==
LOC: ED 07:08 → PCU 08:04
PROVIDERS: Specialist; Admitting Provider Internal Medicine; Emergency Provider Emergency Medicine; PCP Family Medicine
DX: I11.0 Hypertensive heart disease with heart failure (principal); I50.21 Acute systolic (congestive) heart failure; J96.01 Acute respiratory failure with hypoxia; I48.0 Paroxysmal atrial fibrillation; I21.A1 Myocardial infarction type 2; I25.810 Atherosclerosis of coronary artery bypass graft(s) without angina pectoris; I51.3 Intracardiac thrombosis, not elsewhere classified; E78.5 Hyperlipidemia, unspecified; I25.82 Chronic total occlusion of coronary artery; M19.90 Unspecified osteoarthritis, unspecified site; Z79.899 Other long term (current) drug therapy; Z79.82 Long term (current) use of aspirin; Z79.01 Long term (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 of 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; Z95.810 Presence of automatic (implantable) cardiac defibrillator; Z86.73 Personal history of transient ischemic attack (TIA), and cerebral infarction without residual deficits; I44.0 Atrioventricular block, first degree; I45.10 Unspecified right bundle-branch block; R94.31 Abnormal electrocardiogram [ECG] [EKG]; I08.1 Rheumatic disorders of both mitral and tricuspid valves; R93.1 Abnormal findings on diagnostic imaging of heart and coronary circulation
CPT/HCPCS: 36415; 71045; 80048; 80053; 83880; 84484; 85025; 85027; 85610; 92937; 93005; 93306; 93455; 93567; 96374; 96376; 99152; 99153; 99218; 99284; C1874; C1894; J7030; J7050; Q9957; Q9967; A4216; C1725; C1769; C1887; C8929; C9604; G0378; J1940; J3490

== ENCOUNTER → 2021-06-26 | Outpatient (CLI) | payer MEDICARE, SELFPAY | END | disposition home or self-care (01) | PROVIDERS: PCP Family Medicine; Visit Provider Family Medicine | DX: I25.10 Atherosclerotic heart disease of native coronary artery without angina pectoris (principal) ==

== ENCOUNTER → 2021-07-02 12:25 | Outpatient (CLI) | payer MEDICARE, SELFPAY ==
--- NOTE | 2021-07-02 13:50 | NEURO ---
NCS and/or EMG Patient Report Ordering Doctor: Ghanshyam Barfield DATE OF SERVICE: 07/02/21 Federico presents for electrodiagnostic testing of the left lower limb he reports pain numbness and tingling in the left leg for several years. 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 Electrodiagnostic findings: Left peroneal motor nerve demonstrates normal distal latency with reduced amplitude and normal conduction velocity. Normal left tibial motor response normal tibial and peroneal F waves. Prolonged H reflex noted on the left side. Sensory responses are within normal limits. On needle EMG, all muscles tested in the left lower limb showed no evidence of denervation with normal motor unit action potentials Electrodiagnostic impression: This is an abnormal study in the left lower limb 1. 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 This however, seems unlikely to account for the chronic left lower extremity pain, which may be more related to the CVA. 2. No electrodiagnostic evidence is noted for lumbosacral radiculopathy.
== END ==
PROVIDERS: PCP Family Medicine; Referring Provider Family Medicine; Visit Provider Family Medicine
DX: R20.0 Anesthesia of skin (principal); G57.90 Unspecified mononeuropathy of unspecified lower limb
CPT/HCPCS: 95886; 95910

== ENCOUNTER → 2021-07-09 08:54 | Outpatient (CLI) | payer MEDICARE, SELFPAY ==
[2021-07-09 10:41] LABS: AST(SGOT) 19 U/L (15-37); Alanine Aminotransfer ALT/SGPT 26 U/L (16-61); Albumin, Serum 3.7 g/dL (3.2-5.0); Alkaline Phosphatase 84 U/L (45-117); Cholesterol 112 mg/dL (200); Globulin 3.4 g/dL (2.2-4.2); High Density Lipoprotein 32 mg/dL; Protein, Total 7.1 g/dL (6.4-8.2); Triglycerides 136 mg/dL; Very Low Density Lipoprotein 27 mg/dL (5-40)
== END ==
PROVIDERS: PCP Family Medicine; Referring Provider Nurse Practitioner Family; Visit Provider Nurse Practitioner Family
DX: I10 Essential (primary) hypertension (principal); E78.5 Hyperlipidemia, unspecified; I25.10 Atherosclerotic heart disease of native coronary artery without angina pectoris; I25.5 Ischemic cardiomyopathy; I48.11 Longstanding persistent atrial fibrillation; Z95.1 Presence of aortocoronary bypass graft; Z95.5 Presence of coronary angioplasty implant and graft
CPT/HCPCS: 36415; 80061; 80076

== ENCOUNTER 2021-08-21 11:44 | Emergency (ER) | payer MEDICARE, SELFPAY ==
[2021-08-21 11:46] VITALS: BP 125/76; PULSE 63; RESP 16; TEMP 36.4; O2SAT 97; BMI 30.2
--- NOTE | 2021-08-21 12:09 | EKG12_ITS ---
Test Reason : COLD SYMPTOMS Blood Pressure : / mmHG Vent. Rate : 057 BPM Atrial Rate : 057 BPM P-R Int : 242 ms QRS Dur : 172 ms QT Int : 456 ms P-R-T Axes : 035 189 -02 degrees QTc Int : 443 ms Sinus bradycardia with 1st degree A-V block Indeterminate axis Right bundle branch block Inferior infarct , age undetermined Anterolateral infarct , age undetermined Abnormal ECG Confirmed by SOPHIA RAO, FREDA ([id number]), editorial intern LUCERO ESTRADA ([id number]) on 08/22/2021 11:03:47 AM Referred By: MANUEL Confirmed By:FREDA CORTES MD
--- NOTE | 2021-08-21 12:09 | RAD_ITS ---
STUDY: X-RAY CHEST REASON FOR EXAM: Male, 81 years old. Cough TECHNIQUE: Single AP portable view of the chest. COMPARISON: Comparison is made with prior study dated 05/27/2021. FINDINGS: EKG electrodes are seen. Mild residual infiltrates are seen at both lung bases slightly worse on the left side. There is no demonstrated pleural abnormality. Sternal cerclage wires and vascular clips are present from a prior sternotomy and coronary artery bypass graft procedure (CABG). A left-sided ICD is seen. Normal mediastinum and yuki. Normal visualized pulmonary arteries. There is atherosclerotic tortuosity of the aortic arch and descending thoracic aorta. There are diffuse degenerative changes of the visualized thoracic spine. There is degenerative osteoarthritis of the bilateral shoulders. There is no demonstrated abnormality of the visualized soft tissue structures of the upper abdomen. RAD/Chest 1 View (Portable) IMPRESSION: Mild residual bibasilar infiltrates slightly worse on the left side. Electronically Signed: Carlos Ron MD at 12:36 EST ,
--- NOTE | 2021-08-21 12:12 | EDS_ITS ---
HPI History of Present Illness Chief Complaint: Cold Sx Informant: patient Onset/Context/Timing Onset: Month(s) Context: Gradual Onset Timing: Continuous Quality: Dull Location: Throat Worsened by: Nothing Relieved by: Nothing Narrative Narrative: Patient presents with cough and congestion that has been constant for the past few months. Patient states that he has been coughing up some clear and dark sputum. Patient states he was started on doxycycline and Tessalon 2 days ago. Patient states last night he had an episode of hemoptysis. Patient denies any fevers but admits to occasional chills. Patient states nothing makes his symptoms better nothing makes them worse. Patient also admits to a sore throat and rhinorrhea. Patient denies any chest pain or shortness of breath. Patient denies any nausea or vomiting. 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 Atrial fibrillation Back pain Chronic combined systolic and diastolic CHF (congestive heart failure) Colon cancer Essential hypertension History of hiatal hernia History of non-ST elevation myocardial infarction (NSTEMI) (05/27/21) History of pain when walking History of steroid therapy History of stroke Hyperlipidemia Ischemic cardiomyopathy Kidney stone Longstanding persistent atrial fibrillation LV (left ventricular) mural thrombus Non-smoker Osteoarthritis Personal history of colon cancer, stage III Personal history of colonic polyps Stroke/cerebrovascular accident Wears glasses Home Medications carvedilol 25 mg PO BID 08/11/13 [History Last Taken 05/26/21] clonazepam 0.5 mg PO TID 08/11/13 [History Last Taken 05/26/21] digoxin 125 mcg PO DAILY 08/11/13 [History Last Taken 05/26/21] furosemide 40 mg PO DAILY 08/11/13 [History Last Taken 05/26/21] potassium chloride 10 meq PO DAILY 08/11/13 [History Last Taken 05/26/21] ascorbic acid (vitamin C) 500 mg PO DAILY@0800 07/11/15 [History Last Taken 05/26/21] aspirin 81 mg PO QHS 07/11/15 [History Last Taken 05/26/21] PreserVision AREDS-2 1 tab PO BID 02/24/21 [History Last Taken 05/26/21] warfarin 3 mg PO DAILY 05/27/21 [History Last Taken 05/26/21] losartan 50 mg PO DAILY #30 tab 05/28/21 [Rx Last Taken Unknown] clopidogrel 75 mg tablet 75 mg PO DAILY #90 tab 06/25/21 [Rx Last Taken Unknown] atorvastatin 10 mg tablet 10 mg PO QHS #90 tab 07/03/21 [Rx Last Taken Unknown] montelukast 10 mg tablet 10 mg PO DAILY 07/03/21 [History Last Taken Unknown] benzonatate 200 mg PO TID 08/21/21 [History Last Taken Unknown] doxycycline hyclate 100 mg PO BID 08/21/21 [History Last Taken Unknown] Allergy/AdvReac Type Severity Reaction Status Date / Time KALEIGH Inhibitors AdvReac Other Verified 08/21/21 12:10 levofloxacin [From Levaquin] AdvReac aching Verified 08/21/21 12:10 legs trouble walking Family History (Reviewed 07/03/21 @ 13:55 by Juan Chilel PARAFFIN MACHINE OPERATOR, PARAFFIN MACHINE OPERATOR-C) Father Hypertension Heart disease Surgical History H/O coronary artery bypass surgery (08/27/05) History of ankle fusion History of cholecystectomy History of colon surgery History of colonoscopy (2016) History of coronary artery stent placement (05/27/21) History of implantable cardiac defibrillator (ICD) (02/10/17) History of left heart catheterization History of left hip replacement History of right knee joint replacement Hx of cataract surgery Social History Smoking Status: Never smoker alcohol intake: never substance use type: does not use ROS ROS ED Constitutional Constitutional ED: Reports chills and subjective; Denies fever(s) Eyes Eyes: Denies blurry vision or change in vision ENT ENT ED: Reports rhinorrhea and sore throat Cardiovascular Cardiovascular: Denies chest pain or palpitations Respiratory/Chest Respiratory/Chest: Reports cough and sputum; Denies dyspnea Gastrointestinal Gastrointestinal: Denies nausea or vomiting Genitourinary Genitourinary ED: Denies dysuria or hematuria Musculoskeletal Musculoskeletal: Denies back pain or neck pain Integumentary Denies abscess or rash Neurologic Neurologic: Denies headache(s) or weakness Allergic/Immunologic Allergic/Immunologic ED: Denies mouth swelling or urticaria EXAM Physical Exam Const Vital Signs: 08/21/21 11:46 08/21/21 12:24 08/21/21 12:45 Temperature 97.5 F L Temperature Source Temporal Pulse Rate 63 59 L Respiratory Rate 16 13 Respiratory Effort Normal Respiratory Depth Normal Respiratory Pattern Normal Blood Pressure 125/76 H 103/68 Blood Pressure Mean 92 79 Pulse Ox 97 96 Oxygen Delivery Method Room Air Room Air Room Air Positive well nourished and well developed General Appearance ED: well developed and NAD HEENT Reports moist mucous membranes Neck supple and no JVD Resp normal respiratory effort Auscultation: diminished lung sounds diffuse Cardio regular rate and regular rhythm GI normal to inspection, nondistended, normoactive bowel sounds and non-tender Palpation: soft Neuro oriented x3, CN's II-XII intact bilaterally and no sensory deficits noted Sensorium / Orientation: alert Motor Exam: strength 5/5 throughout Psych mental status grossly normal MDM MDM MDM Narrative Medical decision making narrative: EKG was obtained. On my interpretation, it shows sinus bradycardia with a first-degree AV block. There is a right bundle branch block pattern noted. There is an old inferior infarct. There are no acute ST or T wave changes. Portable chest x-ray was obtained. There is 1 view. On my interpretation, there are chronic changes with bilateral lower lobe infiltrates. Bony thorax is normal. There is no cardiomegaly. Radiologist also interpreted the x-ray and agrees. CBC was within normal limits. PT with INR was therapeutic at 3.0. PTT was 74.4. D-dimer was. Within the age-adju sted normal range at 0.63. Comprehensive metabolic profile was within normal limits. High-sensitivity troponin was elevated at 120. However, this was improved compared to previous troponin from May which was 42,789. COVID-19 rapid antigen was obtained and was positive. Patient was advised of his findings. Patient was instructed to quarantine for the next week. Patient was instructed to follow-up with his primary care physician in 5 to 7 days. Patient understood and was agreeable with the plan. All questions were answered. Lab Data Attestation: I reviewed the patient's lab results. Labs: Laboratory Results - last 24 hr 08/21/21 08/21/21 08/21/21 12:10 12:10 12:10 WBC 4.7 RBC 4.15 L Hgb 13.0 Hct 41.1 MCV 99.0 H MCH 31.3 MCHC 31.6 L RDW Std Deviation 56.1 H RDW Coeff of Abdirahman 15.4 H Plt Count 149 L MPV 10.4 Immature Gran % (Auto) 0.200 Neut % (Auto) 73.1 H Lymph % (Auto) 14.0 L Toombs % (Auto) 7.0 Eos % (Auto) 5.3 H Baso % (Auto) 0.4 Absolute Neuts (auto) 3.5 Absolute Lymphs (auto) 0.66 L Nucleated RBC % 0 PT 29.9 H INR 3.0 APTT 74.4 H D-Dimer Quant (PE/DVT) 0.63 H* Sodium 140 Potassium 4.0 Chloride 105 Carbon Dioxide 31.0 Anion Gap 4 L BUN 16 Creatinine 0.92 Estim Creat Clear Calc 49.46 Est GFR (MDRD) Af Amer 102 Est GFR (MDRD) Non-Af 84 BUN/Creatinine Ratio 17.4 Glucose 104 Calcium 8.7 Total Bilirubin 1.10 H AST 19 ALT 20 Alkaline Phosphatase 88 Troponin I High Sens 120 H Total Protein 7.0 Albumin 3.7 Globulin 3.3 Albumin/Globulin Ratio 1.1 Radiography Chest X-Ray - ED: 1 View, Read by ED Physician, Read by Radiologist, Right Infiltrate and Left Infiltrate Diagnostic Testing: Clinical Impression(s) from Imaging Studies Chest X-Ray 08/21/21 12:09 IMPRESSION: Mild residual bibasilar infiltrates slightly worse on the left side. Electronically Signed: Carlos Ron MD at 12:36 EST , Discharge Plan Triage Chief Complaint: Cold Sx ED Provider: Fercho Olmedo Dx/Rx/DC Orders Clinical Impression: Pneumonia due to COVID-19 virus Instructions: Coronavirus Disease 2019 (COVID-19): Caring for Yourself or Others Prescriptions: No Action montelukast 10 mg tablet 10 mg PO DAILY RF: 0 atorvastatin 10 mg tablet 10 mg PO QHS Qty: 90 RF: 3 furosemide 40 MG tablet 40 mg PO DAILY RF: 0 carvedilol 25 MG tablet 25 mg PO BID RF: 0 clonazepam 0.5 MG tablet 0.5 mg PO TID RF: 0 digoxin 125 MCG tablet 125 mcg PO DAILY RF: 0 potassium chloride 10 MEQ tablet 10 meq PO DAILY RF: 0 aspirin 81 MG tablet 81 mg PO QHS RF: 0 ascorbic acid (vitamin C) 500 MG tablet 500 mg PO DAILY@0800 RF: 0 PreserVision AREDS-2 250-90-40-1 mg Capsule 1 tab PO BID RF: 0 warfarin 3 mg Tablet 3 mg PO DAILY RF: 0 losartan 100 mg Tablet 50 mg PO DAILY Qty: 30 RF: 0 doxycycline hyclate 100 mg capsule 100 mg PO BID RF: 0 benzonatate 200 mg capsule 200 mg PO TID RF: 0 clopidogrel 75 mg tablet 75 mg PO DAILY Qty: 90 RF: 3 Primary Care Provider: Ghanshyam Barfield Referrals: Ghanshyam Barfield MD [Primary Care Provider] - 5-7 Days Disposition Disposition: Home, Self Care
[2021-08-21 12:24] VITALS: O2SAT 96
[2021-08-21 12:27] LABS: Absolute Lymphocyte Count 0.66 X10^3/uL (0.83-4.51); Absolute Neutrophil Count 3.5 X10^3/uL (2.0-7.7); Basophil# 0.02 X10^3/uL; Basophil% 0.4 % (0-1); Eosinophil# 0.25 X10^3/uL; Eosinophils% 5.3 % (0-5); Hematocrit 41.1 % (40-54); Lymphocyte # 0.66 X10^3/ul (0.83-4.51); Mean Corp Hgb Conc 31.6 g/dL (32-36); Mean Corpuscular Hgb 31.3 pg (27.0-32.0); Mean Platelet Vol. 10.4 fl (6.2-12.0); Monocyte# 0.33 X10^3/uL; NRBC Flagged by Analyzer 0 % (0-5); Neutrophil # 3.45 X10^3/uL (2.7-7.7); Neutrophil % 73.1 % (47-70); Platelet Count 149 K/mm3 (150-450); RBC Distribution Width CV 15.4 % (11.6-14.6); RBC Distribution Width SD 56.1 fl (35.1-43.9); Red Blood Count 4.15 M/mm3 (4.6-6.2); White Blood Count 4.7 K/mm3 (4.4-11.0)
[2021-08-21 12:42] LABS: Prothrombin Time (Protime)PT. 29.9 SECONDS (11.7-14.9)
[2021-08-21 12:43] LABS: Partial Thromboplast Time 74.4 Seconds (24.1-36.2)
[2021-08-21 12:45] VITALS: BP 103/68; PULSE 59; RESP 13; O2SAT 96
[2021-08-21 12:46] LABS: ALB/GLOB Ratio 1.1 RATIO (0.9-2.4); AST(SGOT) 19 U/L (15-37); Alanine Aminotransfer ALT/SGPT 20 U/L (16-61); Albumin, Serum 3.7 g/dL (3.2-5.0); Alkaline Phosphatase 88 U/L (45-117); Anion Gap 4 (5-15); BUN 16 mg/dL (7-18); BUN/Creat Ratio 17.4 RATIO (10-20); Calcium,Total 8.7 mg/dL (8.5-10.1); Chloride 105 mmol/L (98-107); Creatinine, Serum 0.92 mg/dL (0.70-1.30); EST Glomerular Filtration Rate 84 mL/min (>60); Est Glom Filt Rate - Afr Amer 102 mL/min (>60); Estimated Creatinine Clearance 49.46 ml/min; Globulin 3.3 g/dL (2.2-4.2); Glucose 104 mg/dL (74-106); Sodium Level 140 mmol/L (136-145); Troponin-I HS 120 pg/mL (3.0-78.0)
[2021-08-21 12:55] LABS: D-Dimer Quantitative (DVT/PE) 0.63 FEU/ug/m (0.27-0.49)
[2021-08-21 13:47] VITALS: BP 131/72; PULSE 62; RESP 13; O2SAT 94
--- NOTE | 2021-08-22 12:40 | CASEMGMT ---
SONU MORENO ED follow-up: Date of ER visit: 08/21/2021 Presenting ER complaint: cold sx (tested positive for COVID) SONU MORENO placed call to patient's telephone number listed on demographics, patient answered. Patient states feeling good today. Patient reports he has a pulse oximeter for home use but has not checked his SpO2 yet today. SONU MORENO encouraged patient to monitor SpO2 occasionally and instructed patient on red flag signs and symptoms to monitor for. Voices understanding. Encouraged patient to schedule follow-up appointment with PCP as instructed in ER. Patient states eating and drinking well. Patient denies questions or concerns. SONU Xiao CM
== END 2021-08-21 13:52 | disposition home or self-care (01) ==
PROVIDERS: Emergency Provider Emergency Medicine; PCP Family Medicine; Visit Provider Emergency Medicine
DX: U07.1 COVID-19 (principal); I50.42 Chronic combined systolic (congestive) and diastolic (congestive) heart failure; I11.0 Hypertensive heart disease with heart failure; I48.11 Longstanding persistent atrial fibrillation; I25.5 Ischemic cardiomyopathy; I25.10 Atherosclerotic heart disease of native coronary artery without angina pectoris; J12.82 Pneumonia due to coronavirus disease 2019; E78.5 Hyperlipidemia, unspecified; I44.0 Atrioventricular block, first degree; I45.10 Unspecified right bundle-branch block; I25.2 Old myocardial infarction; Z85.038 Personal history of other malignant neoplasm of large intestine; Z87.442 Personal history of urinary calculi; Z87.19 Personal history of other diseases of the digestive system; Z86.73 Personal history of transient ischemic attack (TIA), and cerebral infarction without residual deficits; Z79.01 Long term (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 of 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; Z79.899 Other long term (current) drug therapy; Z79.82 Long term (current) use of aspirin; Z90.49 Acquired absence of other specified parts of digestive tract; Z95.810 Presence of automatic (implantable) cardiac defibrillator
CPT/HCPCS: 71045; 80053; 84484; 85025; 85379; 85610; 85730; 87426; 93005; 99283; J7030

== ENCOUNTER → 2021-12-10 | Outpatient (CLI) | payer MEDICARE, SELFPAY ==
[2021-12-10 13:38] LABS: Anion Gap 6 (5-15); BUN 17 mg/dL (7-18); BUN/Creat Ratio 17.5 RATIO (10-20); Calcium,Total 9.2 mg/dL (8.5-10.1); Chloride 103 mmol/L (98-107); Creatinine, Serum 0.97 mg/dL (0.70-1.30); EST Glomerular Filtration Rate 79 mL/min (>60); Est Glom Filt Rate - Afr Amer 95 mL/min (>60); Glucose 98 mg/dL (74-106); Potassium 3.7 mmol/L (3.5-5.1); Sodium Level 142 mmol/L (136-145)
== END | disposition home or self-care (01) ==
PROVIDERS: PCP Family Medicine; Visit Provider Nurse Practitioner Family
DX: I25.5 Ischemic cardiomyopathy (principal); I25.709 Atherosclerosis of coronary artery bypass graft(s), unspecified, with unspecified angina pectoris; I34.0 Nonrheumatic mitral (valve) insufficiency
CPT/HCPCS: 36415; 80048

== ENCOUNTER → 2022-01-21 | Outpatient (CLI) | payer MEDICARE, SELFPAY ==
[2022-01-21 10:27] LABS: AST(SGOT) 15 U/L (15-37); Alanine Aminotransfer ALT/SGPT 24 U/L (16-61); Albumin, Serum 3.8 g/dL (3.2-5.0); Alkaline Phosphatase 92 U/L (45-117); Bilirubin, Direct 0.34 mg/dL (0.00-0.30); Cholesterol 118 mg/dL (200); Globulin 3.1 g/dL (2.2-4.2); High Density Lipoprotein 35 mg/dL; Protein, Total 6.9 g/dL (6.4-8.2); Triglycerides 122 mg/dL; Very Low Density Lipoprotein 24 mg/dL (5-40)
== END | disposition home or self-care (01) ==
LOC: LAB 09:37
PROVIDERS: PCP Student in an Organized Health Care Education/Training Program; Referring Provider Nurse Practitioner Family; Visit Provider Nurse Practitioner Family
DX: E78.00 Pure hypercholesterolemia, unspecified (principal); E78.5 Hyperlipidemia, unspecified
CPT/HCPCS: 36415; 80061; 80076

== ENCOUNTER 2022-03-03 07:45 | Day surgery (SDC) | payer MEDICARE, SELFPAY ==
[2022-03-03] VITALS (7 sets, daily range): BP systolic 97–108; BP diastolic 55–77; PULSE 51–57; RESP 16; TEMP 36.4–36.6; O2SAT 92–95; BMI 28.6
--- NOTE | 2022-03-03 08:05 | HP.PCM_ITS ---
History and Physical Date of Admission: 03/03/22 Intake Visit Reasons:?CSCOPE Chief Complaint: Consult cscope Statistical Technician Required: No Accompanied by: Is patient in pain?: No Allergies KALEIGH Inhibitors Adverse Reaction (Verified 02/06/22 08:31) Otherlevofloxacin [From Levaquin] Adverse Reaction (Verified 02/06/22 08:31) aching legs trouble walking Medications clonazepam 0.5 mg tablet 0.5 mg PO TID anxiety 08/11/13 [History Confirmed 02/06/22] ascorbic acid (vitamin C) 500 mg tablet 500 mg PO DAILY@0800 supplement 07/11/15 [History Confirmed 02/06/22] aspirin 81 mg tablet,delayed release 81 mg PO QHS heart health 07/11/15 [History Confirmed 02/06/22] vit C 250 mg-vit E 90 mg-zinc 40 mg-copper 1 ud-ejoovl-rpwypi capsule (PreserVision AREDS-2) 1 tab PO BID eye vitamin 02/24/21 [History Confirmed 02/06/22] atorvastatin 10 mg tablet 10 mg PO QHS #90 tabs 08/26/21 [Rx Confirmed 02/06/22] carvedilol 25 mg tablet 25 mg PO BID blood pressure #180 tabs 08/26/21 [Rx Confirmed 02/06/22] digoxin 125 mcg (0.125 mg) tablet 125 mcg PO DAILY blood pressure #90 tabs 08/26/21 [Rx Confirmed 02/06/22] potassium chloride 10 mEq tablet,extended release(part/cryst) 10 meq PO DAILY supplement #90 tabs 08/26/21 [Rx Confirmed 02/06/22] furosemide 40 mg tablet 40 mg PO BID water pill #180 tabs 12/05/21 [Rx Confirmed 02/06/22] warfarin 3 mg tablet 3 mg PO .COMPLEX blood thinner 12/10/21 [History Confirmed 02/06/22] losartan 100 mg tablet 100 mg PO DAILY [facility] closed, no power. #90 tabs 12/25/21 [Rx Confirmed 02/06/22] [facility] Medical History?(Updated 02/06/22 @ 08:[address] 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 Atrial fibrillation Back pain Chronic combined systolic and diastolic CHF (congestive heart failure) Colon cancer Essential hypertension History of hiatal hernia History of non-ST elevation myocardial infarction (NSTEMI) (05/27/21) History of pain when walking History of steroid therapy History of stroke Hyperlipidemia Ischemic cardiomyopathy Kidney stone Longstanding persistent atrial fibrillation LV (left ventricular) mural thrombus Non-smoker Osteoarthritis Personal history of colon cancer, stage III Personal history of colonic polyps Stroke/cerebrovascular accident Wears glasses Surgical History? H/O coronary artery bypass surgery (08/27/05) History of ankle fusion History of cholecystectomy History of colon surgery History of colonoscopy (2016) History of coronary artery stent placement (05/27/21) History of implantable cardiac defibrillator (ICD) (02/10/17) History of left heart catheterization History of left hip replacement History of right knee joint replacement Hx of cataract surgery Family History? Father Hypertension Heart disease Social History? Smoking Status:? Never smoker alcohol intake:? never substance use type:? does not use caffeine:? Yes Type: coffee Number of servings: 1 HPI HPI HPI: DARRELL PRIETO, is a 81 M who presents to the office today for surgical consideration regarding a possible colonoscopy.? He just had a cardiology visit on January 23, 2022.? This demonstrates significant cardiac history.? May 27, 2021 echocardiogram demonstrated ejection fraction of 25% with stage II diastolic dysfunction.? He has had a history of left ventricular mural thrombus spring and summer 2020.? He had a non-ST segment elevation IA May 27, 2021.? He has a [place] dual-chamber ICD pacemaker.? He has had a history of colon cancer surgery and chemotherapy and his oncologist is Dr. Sterling Bradley.? His most recent colonoscopy was with me February 25, 2021.? There was evidence of a prior end-to-end colocolonic anastomosis in the distal sigmoid.? 11 polyps were removed at that setting.? Pathology for all of these were tubular adenomas.? There is no comment of any dysplasia identified at that time.? His colonoscopy prior that was February 2019.? For this procedure he had his Coumadin held for 2 days.? 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 He had FOLFOX therapy. Is no complaints today.? He was able to walk into the office from the parking lot without an assist device.? He is not on oxygen.? He claims that he is able to go up a flight of stairs at home.? No bright red blood per rectum or melena.? No abdominal pain.? He simply states that he has noticed just general increase fatigue.? He denies chest pain.? He denies shortness of breath. ROS General General: No weight change, appetite, fatigue, colon cancer, breast cancer or weakness HEENT HEENT: No difficulty swallowing, eye injury, eye surgery, swollen glands or hoarseness Endo Endocrine: No thyroid disease, diabetes mellitus, thyroid cancer, Hair loss, heat intolerance or cold intolerance Skin Skin: No rash or changing moles Breast Breast: No left breast lump, right breast lump, nipple discharge, breast pain, abnormal mammogram, abnormal US or breast enlargement Musc Musculoskeletal: Yes back problems, arthritis and rheumatoid arthritis; No gout or joint pain Cardio Cardiovascular: Yes pacemaker, heart disease, atrial fibrillation, high blood pressure, heart attack and heart stent; No murmur, palpitations, shortness of breat with exertion or chest pain Psych Psychiatric: No depression, anxiety or hearing voices Resp Respiratory: No shortness of breath, No sleep apnea, No cough, No COPD, No asthma, No emphysema and No wheezing Gastro Gastrointestinal: No abdominal pain, No nausea or vomiting, No diarrhea, No constipation, No blood in stool, No acid reflux, No hemorrhoids, No ulcers, No gallbladder problem and No black,tarry stools Bin Hematologic: Yes blood thinners, No blood disorders, No bleeding, No anemia and No blood clots Neuro Neurologic: No system reviewed and no additional complaints, except as documented, No as per HPI, No abnormal gait, No abnormal hearing, No abnormal movements, No abnormal speech, No behavioral changes, No burning sensations, No confusion, No convulsions, No disequilibrium, No dizziness, No localized weakness, No frequent falls, No headache(s), No lack of coordination, No loss of vision, No memory loss, No numbness, No other visual disturbances, No radicular pain, No restless legs, No sensory deficit, No syncope, No tingling, No tremor(s), No weakness and No other Exam Const General: cooperative, comfortable and no acute distress Orientation: alert, awake and oriented x3 HENMT Head: normal to inspection Eyes General: appearance normal, both eyes and all related structures Chest Chest palpation & inspection: normal inspection of the chest Resp Effort & Inspection: normal respiratory effort Auscultation: clear to auscultation bilaterally Cardio Other: Pacemaker defibrillator left anterior chest.? Irregular heart rate, bradycardia GI Palpation: soft Auscultation: normal bowel sounds Musc Cervical Spine: normal cervical lordosis Neuro General: patient alert, patient awake and patient oriented x3 Extrem General: normal to inspection Psych Appearance: grossly normal Assessment and Plan Assessment and Plan (1) Personal history of colonic polyps: ?Status:?Acute (2) Personal history of colon cancer, stage III: ?Status:?Acute Plan I have offered the patient a colonoscopy with possible biopsy or polypectomy as indicated.? I suspect he likely has additional polyps present.? His quality of life remained stable.? We would have his hold his Coumadin for 2 days preprocedure as this was effective last time.? As noted just a year ago he had 10 polyps removed. We will confirm with Dr. Miguel Farley ability for the patient to have MAC anesthesia. Patient's had an opportunity to ask and have questions answered.? We will schedule and proceed pending cardiology impression. Copy: Dr. Miguel Farley and Dr. Handy Beltran and Kristie Hitchcock, VIDEO PRODUCTION SPECIALIST-C Kwesi Mayorga M.D., F.A.C.S. I have re-examined the patient. There are no clinical changes since date of exam. Kwesi Mayorga M.D., F.A.C.S.
[2022-03-03] MEDS: Lactated Ringers 1,000 ML 15 ML IV (08:10)
[2022-03-03 08:20] LABS: INR Fingerstick 1.8; Prothrombin Time Fingerstick 21.2 SEC (11.7-14.9)
--- NOTE | 2022-03-03 09:00 | COLBX_PTH ---
PATIENT: DARRELL PRIETO LOC: EN U#:[id number] AGE/SX: 82/M ROOM: RE03/03/[address]: Dr. Kwesi Mayorga MD : 1940 BED: DIS: 03/03/2022 SPEC #: [id number] RECD: 03/03/22 12:38 STATUS: OG MARYLU #: [id number] JOSÉ MANUEL: 03/03/22 09:[address]: Kwesi Mayorga DEPT: SURGICAL PATHOLOGY RECD BY: Kaia Moran ENTERED: 03/04/22 11:18 SP TYPE: COLON BX OT DR: Dr. Handy Beltran, DO Tissues: A - COLON BIOPSY B - COLON BIOPSY C - COLON BIOPSY Procedures: Surgery Specimen Level IV HEADER OPERATION: Colonoscopy (MAC) PRE-OP DIAGNOSIS: History of colonic polyps, history of colon cancer stage III TISSUE SUBMITTED: A ? Hepatic flexure polyp, B - Hepatic flexure polyp biopsy, C - Hepatic flexure polyp #2 MICROSCOPIC DIAGNOSIS A. Hepatic flexure polyp, biopsy: Fragments of tubular adenoma. B. Hepatic flexure polyp, biopsy: Tubular adenoma. See comment. C. Hepatic flexure polyp #2, biopsy: Fragments of tubular adenoma. SJ:jake 03/05/2022 COMMENT B. The lesion also shows focal hyperplastic polyp changes. MICROSCOPIC DESCRIPTION Slides are reviewed. GROSS DESCRIPTION A - Received in fixative is one container labeled with the patient's name and designated hepatic flexure polyp biopsy. The specimen consists of multiple irregular fragments of light blanco soft tissue that in aggregate measure 1 x 0.6 x 0.1 cm. The specimen is totally submitted in one cassette. B - Received in fixative is one container labeled with the patient's name and designated hepatic flexure polyp. The specimen consists of one irregular fragment of light blanco soft tissue that measures 0.3 x 0.2 x 0.1 cm. The specimen is totally submitted in one cassette. C - Received in fixative is one container labeled with the patient's name and designated hepatic flexure polyp biopsy #2. The specimen consists of two irregular fragments of light blanco soft tissue that in aggregate measure 0.5 x 0.3 x 0.1 cm. The specimen is totally submitted in one cassette. / AM:jake 03/04/2022 TC:2 CPT: 23234 x3
--- NOTE | 2022-03-03 09:55 | OP.COLON_ITS ---
Patient Name: Federico Coronel Procedure Date: 03/03/2022 9:12 AM Date of : 1940 Age: 82 Procedure: Colonoscopy Indications: High risk colon cancer surveillance: Personal history of colonic polyps, High risk colon cancer surveillance: Personal history of colon cancer Providers: Kwesi Mayorga MD Referring MD: Kwesi Mayorga MD Medicines: See the Anesthesia note for documentation of the administered medications Patient Profile: Last Colonoscopy: 1 year ago. Complications: No immediate complications. Procedure: Pre-Anesthesia Assessment: - Prior to the procedure, a History and Physical was performed, and patient medications and allergies were reviewed. The patient's tolerance of previous anesthesia was also reviewed. The risks and benefits of the procedure and the sedation options and risks were discussed with the patient. All questions were answered, and informed consent was obtained. Prior Anticoagulants: The patient has taken no previous anticoagulant or antiplatelet agents. ASA Grade Assessment: III - A patient with severe systemic disease. After reviewing the risks and benefits, the patient was deemed in satisfactory condition to undergo the procedure. - Prior to the procedure, a History and Physical was performed, and patient medications and allergies were reviewed. The patient's tolerance of previous anesthesia was also reviewed. The risks and benefits of the procedure and the sedation options and risks were discussed with the patient. All questions were answered, and informed consent was obtained. Prior Anticoagulants: The patient has taken Coumadin (warfarin), last dose was 2 days prior to procedure. ASA Grade Assessment: III - A patient with severe systemic disease. After reviewing the risks and benefits, the patient was deemed in satisfactory condition to undergo the procedure. After I obtained informed consent, the scope was passed under direct vision. Throughout the procedure, the patient's blood pressure, pulse, and oxygen saturations were monitored continuously. The was introduced through the anus and advanced to the cecum, identified by appendiceal orifice and ileocecal valve. The colonoscopy was performed without difficulty. The patient tolerated the procedure well. The quality of the bowel preparation was adequate to identify polyps. The ileocecal valve and the appendiceal orifice were photographed. Scope In: 9:21:12 AM Scope Withdrawal Time 0 hours 15 minutes 58 seconds Scope Out: 9:43:58 AM Total Procedure Duration Time 0 hours 22 minutes 46 seconds Findings: The digital rectal exam findings include non-thrombosed external hemorrhoids, non-thrombosed internal hemorrhoids, internal hemorrhoids that prolapse with straining, but spontaneously regress to the resting position (Grade II) and enlarged prostate. A 15 mm polyp was found in the hepatic flexure. The polyp was sessile. The polyp was removed with a piecemeal technique using a hot snare. Resection and retrieval were complete. To prevent bleeding post-intervention, one hemostatic clip was successfully placed. There was no bleeding at the end of the procedure. A 3 mm polyp was found in the hepatic flexure. The polyp was sessile. The polyp was removed with a cold biopsy forceps. Resection and retrieval were complete. A 6 mm polyp was found in the hepatic flexure. The polyp was sessile. The polyp was removed with a cold biopsy forceps. Resection and retrieval were complete. Multiple diverticula were found in the sigmoid colon. There was evidence of a prior end-to-end low-anterior anastomosis in the rectum. This was patent. Impression: - Non-thrombosed external hemorrhoids, non-thrombosed internal hemorrhoids, internal hemorrhoids that prolapse with straining, but spontaneously regress to the resting position (Grade II) and enlarged prostate found on digital rectal exam. - One 15 mm polyp at the hepatic flexure, removed piecemeal using a hot snare. Resected and retrieved. Clip was placed. - One 3 mm polyp at the hepatic flexure, removed with a cold biopsy forceps. Resected and retrieved. - One 6 mm polyp at the hepatic flexure, removed with a cold biopsy forceps. Resected and retrieved. - Diverticulosis in the sigmoid colon. - Patent end-to-end low-anterior anastomosis. Recommendation: - Discharge patient to home. - Resume previous diet. - Continue present medications. - Repeat colonoscopy in 3 years for surveillance based on pathology results. - Telephone my office for pathology results in 1 week. Procedure Code(s): --- Professional --- 64537, Colonoscopy, flexible; with removal of tumor(s), polyp(s), or other lesion(s) by snare technique 66295, 59, Colonoscopy, flexible; with biopsy, single or multiple Diagnosis Code(s): --- Professional --- Z86.010, Personal history of colonic polyps Z85.038, Personal history of other malignant neoplasm of large intestine D12.3, Benign neoplasm of transverse colon (hepatic flexure or splenic flexure) K64.1, Second degree hemorrhoids K64.4, Residual hemorrhoidal skin tags Z98.0, Intestinal bypass and anastomosis status N40.0, Benign prostatic hyperplasia without lower urinary tract symptoms K57.30, Diverticulosis of large intestine without perforation or abscess without bleeding CPT copyright 2017 [employer]. All rights reserved. The codes documented in this report are preliminary and upon auto parker review may be revised to meet current compliance requirements. Kwesi Mayorga MD 03/03/2022 9:55:09 AM This report has been signed electronically. Number of Addenda: 0 Note Initiated On: 03/03/2022 9:12 AM
--- NOTE | 2022-03-03 09:56 | OP.CCLET_ITS ---
03/03/2022 Handy Beltran [address] [id number] Re : Colonoscopy procedure for Federico Coronel Dear Dr. Beltran This procedure was performed on Thursday, March 03, 2022. My impressions and recommendations are as follows: Impressions : - Non-thrombosed external hemorrhoids, non-thrombosed internal hemorrhoids, internal hemorrhoids that prolapse with straining, but spontaneously regress to the resting position (Grade II) and enlarged prostate found on digital rectal exam. - One 15 mm polyp at the hepatic flexure, removed piecemeal using a hot snare. Resected and retrieved. Clip was placed. - One 3 mm polyp at the hepatic flexure, removed with a cold biopsy forceps. Resected and retrieved. - One 6 mm polyp at the hepatic flexure, removed with a cold biopsy forceps. Resected and retrieved. - Diverticulosis in the sigmoid colon. - Patent end-to-end low-anterior anastomosis. Recommendations : - Discharge patient to home. - Resume previous diet. - Continue present medications. - Repeat colonoscopy in 3 years for surveillance based on pathology results. - Telephone my office for pathology results in 1 week. My findings are described in the full procedure note, which is enclosed. If I can be of further assistance, please feel free to contact me at Doctor phone number(s): Work: . Sincerely, Kwesi Mayorga MD 03/03/2022 9:55:09 AM This report has been signed electronically.
== END 2022-03-03 11:00 | disposition home or self-care (01) ==
LOC: EN 07:52 → AC 07:52
PROVIDERS: PCP Student in an Organized Health Care Education/Training Program; Referring Provider Student in an Organized Health Care Education/Training Program; Visit Provider Surgery
PROC: 0DJD8ZZ Inspection of Lower Intestinal Tract, Via Natural or Artificial Opening Endoscopic (ICD-10-PCS; CPT 45378; principal; 2022-03-03 08:55)
DX: D12.3 Benign neoplasm of transverse colon (principal); I50.42 Chronic combined systolic (congestive) and diastolic (congestive) heart failure; I11.0 Hypertensive heart disease with heart failure; I48.11 Longstanding persistent atrial fibrillation; I25.10 Atherosclerotic heart disease of native coronary artery without angina pectoris; I25.2 Old myocardial infarction; I25.5 Ischemic cardiomyopathy; Z85.038 Personal history of other malignant neoplasm of large intestine; Z86.73 Personal history of transient ischemic attack (TIA), and cerebral infarction without residual deficits; Z87.442 Personal history of urinary calculi; E78.5 Hyperlipidemia, unspecified; Z79.82 Long term (current) use of aspirin; Z79.01 Long term (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 of 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; Z79.899 Other long term (current) drug therapy; Z90.49 Acquired absence of other specified parts of digestive tract; Z95.810 Presence of automatic (implantable) cardiac defibrillator; I34.0 Nonrheumatic mitral (valve) insufficiency; Z86.010 Personal history of colon polyps; K64.1 Second degree hemorrhoids; K64.4 Residual hemorrhoidal skin tags; Z98.0 Intestinal bypass and anastomosis status; N40.0 Benign prostatic hyperplasia without lower urinary tract symptoms; K57.30 Diverticulosis of large intestine without perforation or abscess without bleeding
CPT/HCPCS: 45385; 45380; 36416; 85610; 88305; J7120

== ENCOUNTER 2022-05-28 11:55 | Outpatient (CLI) | payer MEDICARE, SELFPAY ==
[2022-05-28 12:26] LABS: Absolute Lymphocyte Count 0.57 X10^3/uL (0.83-4.51); Absolute Neutrophil Count 6.4 X10^3/uL (2.0-7.7); Basophil# 0.02 X10^3/uL; Basophil% 0.3 % (0-1); Eosinophil# 0.27 X10^3/uL; Eosinophils% 3.5 % (0-5); Hematocrit 42.7 % (40-54); Hemoglobin 13.7 g/dL (13.0-16.5); Lymphocyte # 0.57 X10^3/ul (0.83-4.51); Lymphocyte % 7.4 % (19-41); Mean Corp Hgb Conc 32.1 g/dL (32-36); Mean Corpuscular Volume 99.8 fL (80-94); Mean Platelet Vol. 10.7 fl (6.2-12.0); Monocyte# 0.46 X10^3/uL; NRBC Flagged by Analyzer 0 % (0-5); Neutrophil # 6.36 X10^3/uL (2.7-7.7); Neutrophil % 82.5 % (47-70); POSITIVE DIFFERENTIAL YES; Platelet Count 149 K/mm3 (150-450); RBC Distribution Width CV 14.8 % (11.6-14.6); RBC Distribution Width SD 54.4 fl (35.1-43.9); Red Blood Count 4.28 M/mm3 (4.6-6.2); White Blood Count 7.7 K/mm3 (4.4-11.0)
[2022-05-28 12:28] LABS: Differential Indicated SCAN CRITERIA MET
[2022-05-28 12:51] LABS: Platelet Estimate ADEQUATE (ADEQ); Red Cell Morphology NORM C+C NORMAL (NORM C&C)
[2022-05-28 13:23] LABS: Anion Gap 6 (5-15); BUN 23 mg/dL (7-18); BUN/Creat Ratio 20.5 RATIO (10-20); Calcium,Total 9.4 mg/dL (8.5-10.1); Chloride 102 mmol/L (98-107); Creatinine, Serum 1.12 mg/dL (0.70-1.30); EST Glomerular Filtration Rate 67 mL/min (>60); Est Glom Filt Rate - Afr Amer 81 mL/min (>60); Glucose 161 mg/dL (74-106); Magnesium 2.5 mg/dL (1.6-2.6); Potassium 3.7 mmol/L (3.5-5.1); Sodium Level 142 mmol/L (136-145); Thyroid Stim Hormone (TSH) 1.71 uIU/mL (0.358-3.74)
== END 2022-05-28 23:59 | disposition home or self-care (01) ==
LOC: LABSPEC 11:57
PROVIDERS: PCP Student in an Organized Health Care Education/Training Program; Visit Provider Nurse Practitioner Family
DX: I49.01 Ventricular fibrillation (principal); Z95.810 Presence of automatic (implantable) cardiac defibrillator; E03.9 Hypothyroidism, unspecified
CPT/HCPCS: 36415; 80048; 80162; 83735; 84443; 85025

== ENCOUNTER → 2022-06-24 | Outpatient (CLI) | payer MEDICARE, SELFPAY ==
--- NOTE | 2022-06-24 16:38 | STRESSREP ---
Stress Test Report Pharmacologic myocardial perfusion stress test. 82-year-old man with a history of coronary artery disease Resting EKG demonstrates sinus bradycardia with a rate of 55 bpm. Resting blood pressure is 112/58 mmHg. 0.4 mg of regadenoson was infused per usual protocol followed by rapid intravenous saline flush injection. Continuous EKG monitoring was performed. The maximum heart rate was 65 bpm which was 46% of max impacted heart rate the maximum workload was 1 metabolic equivalent. At rest there were no ST or T wave changes noted to suggest ischemia and at peak infusion nonspecific ST changes were noted with did not meet the criteria for ischemia. Occasional premature ventricular complexes noted. No clinical angina is noted. The final blood pressure was 110/54 mmHg. Myocardial perfusion protocol. 11.3 mCi of technetium 99m sestamibi was injected at rest. 0.4 mg of regadenoson was infused per usual protocol. At peak infusion 34.2 mCi of technetium 99m sestamibi was injected stress images were obtained stress and rest images were reconstructed and compared in the short axis vertical long and horizontal long axis. Gated images were also obtained. Perfusion SPECT analysis: Review of the stress images demonstrate a dilated cardiac silhouette size. There is normal perfusion noted of the anterior wall and a perfusion defect noted involving the inferior wall. There is a moderate perfusion defect also noted in the lateral wall with minimal improvement on the resting images. There is a persistence of defect noted in the inferior wall on the stress and resting images. The above is suggestive of a previous inferior infarct and also a lateral infarct with minimal stephen-infarct ischemia. Gated SPECT analysis: The gated ejection fraction is 33. 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
== END | disposition home or self-care (01) ==
PROVIDERS: PCP Student in an Organized Health Care Education/Training Program; Visit Provider Nurse Practitioner Family
DX: I25.10 Atherosclerotic heart disease of native coronary artery without angina pectoris (principal); I25.5 Ischemic cardiomyopathy; I49.3 Ventricular premature depolarization; I47.29 Other ventricular tachycardia; Z95.1 Presence of aortocoronary bypass graft; Z95.5 Presence of coronary angioplasty implant and graft; Z95.810 Presence of automatic (implantable) cardiac defibrillator; I10 Essential (primary) hypertension; E78.5 Hyperlipidemia, unspecified
CPT/HCPCS: 78452; 93017; A9500; A4216; J2785

== ENCOUNTER → 2022-09-29 | Outpatient (CLI) | payer MEDICARE, SELFPAY ==
[2022-09-29 10:28] LABS: Absolute Lymphocyte Count 0.67 X10^3/uL (0.83-4.51); Absolute Neutrophil Count 6.1 X10^3/uL (2.0-7.7); Basophil# 0.02 X10^3/uL; Basophil% 0.3 % (0-1); Eosinophil# 0.28 X10^3/uL; Eosinophils% 3.6 % (0-5); Hematocrit 46.2 % (40-54); Hemoglobin 14.5 g/dL (13.0-16.5); Lymphocyte # 0.67 X10^3/ul (0.83-4.51); Lymphocyte % 8.7 % (19-41); Mean Corp Hgb Conc 31.4 g/dL (32-36); Mean Corpuscular Hgb 30.9 pg (27.0-32.0); Mean Corpuscular Volume 98.5 fL (80-94); Mean Platelet Vol. 11.3 fl (6.2-12.0); Monocyte% 7.8 % (0-10); NRBC Flagged by Analyzer 0 % (0-5); Neutrophil # 6.12 X10^3/uL (2.7-7.7); Neutrophil % 79.2 % (47-70); Platelet Count 166 K/mm3 (150-450); RBC Distribution Width SD 54.4 fl (35.1-43.9); Red Blood Count 4.69 M/mm3 (4.6-6.2); White Blood Count 7.7 K/mm3 (4.4-11.0)
[2022-09-29 11:06] LABS: Vitamin B12 443 pg/mL (211-911); Vitamin D,25 Hydroxy 43.6 ng/mL
[2022-09-29 11:12] LABS: AST(SGOT) 14 U/L (15-37); Alanine Aminotransfer ALT/SGPT 17 U/L (16-61); Albumin, Serum 3.7 g/dL (3.2-5.0); Alkaline Phosphatase 98 U/L (45-117); Bilirubin, Direct 0.39 mg/dL (0.00-0.30); Cholesterol 106 mg/dL (200); Globulin 3.2 g/dL (2.2-4.2); High Density Lipoprotein 31 mg/dL; Protein, Total 6.9 g/dL (6.4-8.2); Triglycerides 134 mg/dL; Very Low Density Lipoprotein 27 mg/dL (5-40)
[2022-09-29 11:27] LABS: ALB/GLOB Ratio 1.2 RATIO (0.9-2.4); AST(SGOT) 14 U/L (15-37); Alanine Aminotransfer ALT/SGPT 16 U/L (16-61); Albumin, Serum 3.8 g/dL (3.2-5.0); Alkaline Phosphatase 100 U/L (45-117); Anion Gap 7 (5-15); BUN 20 mg/dL (7-18); BUN/Creat Ratio 18.5 RATIO (10-20); Calcium,Total 9.2 mg/dL (8.5-10.1); Chloride 107 mmol/L (98-107); Creatinine, Serum 1.08 mg/dL (0.70-1.30); EST Glomerular Filtration Rate 70 mL/min (>60); Est Glom Filt Rate - Afr Amer 84 mL/min (>60); Globulin 3.3 g/dL (2.2-4.2); Glucose 124 mg/dL (74-106); Potassium 3.7 mmol/L (3.5-5.1); Protein, Total 7.1 g/dL (6.4-8.2); Sodium Level 143 mmol/L (136-145); Thyroid Stim Hormone (TSH) 1.48 uIU/mL (0.358-3.74)
== END | disposition home or self-care (01) ==
LOC: LAB 09:25
PROVIDERS: PCP Student in an Organized Health Care Education/Training Program; Visit Provider Nurse Practitioner Family
DX: G51.9 Disorder of facial nerve, unspecified (principal); I50.42 Chronic combined systolic (congestive) and diastolic (congestive) heart failure; E55.9 Vitamin D deficiency, unspecified; E53.8 Deficiency of other specified B group vitamins
CPT/HCPCS: 36415; 80053; 80061; 80076; 82306; 82607; 84443; 85025

== ENCOUNTER 2022-10-30 13:17 | Emergency (ER) | payer MEDICARE, SELFPAY ==
[2022-10-30 13:18] VITALS: BP 110/75; PULSE 56; RESP 23; TEMP 35.7; O2SAT 92; BMI 31.4
--- NOTE | 2022-10-30 13:48 | EKG12_ITS ---
Test Reason : Blood Pressure : / mmHG Vent. Rate : 059 BPM Atrial Rate : 061 BPM P-R Int : 000 ms QRS Dur : 168 ms QT Int : 466 ms P-R-T Axes : 000 032 179 degrees QTc Int : 461 ms Ventricular-paced rhythm Abnormal ECG Confirmed by MIRTHA RAO, RAE ([id number]), desk editor LUCERO ESTRADA ([id number]) on 11/02/2022 11:00:26 AM Referred By: JOVANNA Confirmed By:RAE SHANNON MD
[2022-10-30 13:49] VITALS: O2SAT 91
--- NOTE | 2022-10-30 13:50 | RAD_ITS ---
STUDY: X-RAY CHEST REASON FOR EXAM: Male, 82 years old. Chest pain TECHNIQUE: Single AP portable view of the chest. COMPARISON: Comparison is made with prior study August 21, 2021. FINDINGS: EKG electrodes are seen. Mild degree of vascular congestion and CHF. Blunting of both costophrenic angles with left basilar atelectasis. Sternal cerclage wires and vascular clips are present from a prior sternotomy and coronary artery bypass graft procedure (CABG). Moderate cardiomegaly. A left-sided dual-chamber pacemaker is seen. Normal mediastinum and yuki. Normal visualized pulmonary arteries. There is atherosclerotic calcification of the aortic arch with tortuosity. Normal visualized thoracic spine. There is degenerative osteoarthritis of the bilateral shoulders. There is no demonstrated abnormality of the visualized soft tissue structures of the upper abdomen. RAD/Chest 1 View (Portable) IMPRESSION: Cardiomegaly and mild degree of CHF. Blunting of both costophrenic angles more prominent at the left lung base with atelectasis. Electronically Signed: Carlos Ron MD at 14:13 EDT ,
[2022-10-30 13:57] LABS: Absolute Lymphocyte Count 0.69 X10^3/uL (0.83-4.51); Absolute Neutrophil Count 5.8 X10^3/uL (2.0-7.7); Basophil# 0.03 X10^3/uL; Basophil% 0.4 % (0-1); Eosinophil# 0.28 X10^3/uL; Eosinophils% 3.8 % (0-5); Hematocrit 44.5 % (40-54); Hemoglobin 13.9 g/dL (13.0-16.5); Lymphocyte # 0.69 X10^3/ul (0.83-4.51); Lymphocyte % 9.2 % (19-41); Mean Corp Hgb Conc 31.2 g/dL (32-36); Mean Corpuscular Hgb 30.3 pg (27.0-32.0); Mean Corpuscular Volume 97.2 fL (80-94); Mean Platelet Vol. 11.3 fl (6.2-12.0); Monocyte# 0.63 X10^3/uL; Monocyte% 8.4 % (0-10); NRBC Flagged by Analyzer 0 % (0-5); Neutrophil # 5.81 X10^3/uL (2.7-7.7); Neutrophil % 77.9 % (47-70); Platelet Count 123 K/mm3 (150-450); RBC Distribution Width CV 14.8 % (11.6-14.6); RBC Distribution Width SD 52.5 fl (35.1-43.9); Red Blood Count 4.58 M/mm3 (4.6-6.2); White Blood Count 7.5 K/mm3 (4.4-11.0)
--- NOTE | 2022-10-30 14:02 | ED.VIS.CHEST ---
HPI History of Present Illness Detail of Chief Complaint: Patient with URI symptoms. Sent over from the nurse practitioner's office. Onset/Context/Timing Onset: Days Activity at onset: gradual Current Severity: Mild Maximum Severity: Mild Associated Symptoms: Positive for Cough; Negative for Nausea, Vomiting, Diaphoresis, Dyspnea, Fever, Lightheadedness, Acid Reflux or Palpitations Narrative Narrative: 82-year-old male extensive past medical history of prior V-fib V. tach pacemaker defibrillator with a prior quadruple bypass in 2005 and 4 cardiac stents done here in 2020. Has a known cardiomyopathy with an EF of 20%. Prior stroke with left-sided numbness. He went into his primary care physician's office today because he was having URI symptoms with rhinorrhea. He was not having chest pain. He does not have any significant shortness of breath. They did a EKG which was paced they misinterpreted it as an [place] and sent him to the emergency department. 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 Atrial fibrillation Back pain Chronic combined systolic and diastolic CHF (congestive heart failure) Colon cancer Essential hypertension History of hiatal hernia History of non-ST elevation myocardial infarction (NSTEMI) (05/27/21) History of pain when walking History of steroid therapy History of stroke Hyperlipidemia Ischemic cardiomyopathy Kidney stone Longstanding persistent atrial fibrillation LV (left ventricular) mural thrombus Non-smoker Nonrheumatic mitral (valve) insufficiency Osteoarthritis Personal history of colon cancer, stage III Personal history of colonic polyps Stroke/cerebrovascular accident Ventricular tachycardia (paroxysmal) Wallenberg syndrome Wears glasses Home Medications clonazepam 0.5 mg tablet (Klonopin) 0.5 mg PO TID anxiety 08/11/13 [History Last Taken 03/03/22 06:00] ascorbic acid (vitamin C) 500 mg tablet 500 mg PO DAILY@0800 supplement 07/11/15 [History Last Taken 05/26/21] aspirin 81 mg tablet,delayed release 81 mg PO QHS [facility] 07/11/15 [History Last Taken 05/26/21] vit C 250 mg-vit E 90 mg-zinc 40 mg-copper 1 [id number] capsule (PreserVision AREDS-2) 1 tab PO BID eye vitamin 02/24/21 [History Last Taken 05/26/21] furosemide 40 mg tablet 40 mg PO BID water pill #180 tabs 12/05/21 [Rx Last Taken Unknown] warfarin 3 mg tablet 3 mg PO .COMPLEX blood thinner 12/10/21 [History Last Taken Unknown] losartan 100 mg tablet 100 mg PO DAILY [place] pharmacy closed, no power. #90 tabs 12/25/21 [Rx Last Taken 03/03/22 06:00] cholecalciferol (vitamin D3) 50 mcg (2,000 unit) capsule 50 mcg PO DAILY 04/02/22 [History Last Taken Unknown] warfarin 2 mg tablet 2 mg PO .COMPLEX #30 tabs 07/02/22 [Rx Last Taken Unknown] carvedilol 25 mg tablet 25 mg PO BID blood pressure #180 tabs 08/19/22 [Rx Last Taken Unknown] digoxin 125 mcg (0.125 mg) tablet 125 mcg PO DAILY blood pressure #90 tabs 08/19/22 [Rx Last Taken Unknown] atorvastatin 10 mg tablet 10 mg PO QHS #30 tabs 09/08/22 [Rx Last Taken Unknown] amiodarone 200 mg tablet 200 mg PO DAILY #90 tabs 10/19/22 [Rx Last Taken Unknown] potassium chloride 10 mEq tablet,extended release(part/cryst) 20 meq PO DAILY supplement #180 tabs 10/19/22 [Rx Last Taken Unknown] Allergy/AdvReac Type Severity Reaction Status Date / Time KALEIGH Inhibitors AdvReac Other Verified 10/30/22 13:27 levofloxacin [From Levaquin] AdvReac aching Verified 10/30/22 13:27 legs trouble walking Family History Father Hypertension Heart disease Surgical History H/O coronary artery bypass surgery (08/27/05) History of ankle fusion History of cholecystectomy History of colon surgery History of colonoscopy (2016) History of coronary artery stent placement (05/27/21) History of implantable cardiac defibrillator (ICD) (02/10/17) History of left heart catheterization History of left hip replacement History of right knee joint replacement Hx of cataract surgery Social History Smoking Status: Never smoker alcohol intake: never substance use type: does not use caffeine: Yes Type: coffee Number of servings: 1 ROS ROS ED ROS Narrative Runny nose. Cough. Review of Systems ROS Unobtainable: Denies due to encephalopathy Constitutional Constitutional ED: Denies chills or fever(s) Eyes Eyes: Reports none ENT ENT ED: Denies ear pain Cardiovascular Cardiovascular: Denies chest pain, palpitations or racing heartbeat Respiratory/Chest Respiratory/Chest: Reports cough; Denies dyspnea Gastrointestinal Gastrointestinal: Denies abdominal pain, constipation, diarrhea, melena, nausea or vomiting Genitourinary Genitourinary ED: Denies dysuria Musculoskeletal Musculoskeletal: Denies arthralgias Integumentary Denies abscess Neurologic Neurologic: Denies headache(s) Psychiatric Psychiatric: Denies anxiety Endocrine Endocrinology: Denies cold intolerance Hematologic/Lymphatic Hematologic/Lymphatic: Denies easy bleeding Allergic/Immunologic Allergic/Immunologic ED: Denies mouth swelling EXAM Physical Exam Narrative Exam Narrative: 82-year-old male vital signs are stable afebrile. No acute distress. Sitting upright in bed. and family at bedside. H EENT exam unremarkable. Clear rhinorrhea. Neck nontender no JVD. Lungs clear to auscultation bilateral. Heart paced rhythm rate about 60. 3/6 systolic ejection murmur. Chest wall nontender. Prior well-healed sternotomy. Left-sided pacer defibrillator. Chest wall nontender. Abdomen soft nontender. Moving all 4 extremities. 1+ pitting edema both lower extremities. Chronic. Neurologically he is awake. He is alert. He does have numbness on his left arm and leg from a prior stroke. He is awake alert. Answering questions and following commands. Const Vital Signs: 10/30/22 13:18 10/30/22 13:18 10/30/22 13:49 Temperature 96.3 F L Temperature Source Temporal Pulse Rate 56 L Respiratory Rate 23 H Blood Pressure 110/75 Blood Pressure Mean 86 Pulse Ox 92 91 Oxygen Delivery Method Room Air Room Air Positive well nourished and well developed; Negative for obese, cachectic, contractures or unkempt General Appearance ED: well developed and NAD; Negative for unkempt, cachectic, contractures or pallor Nutritional Appearance: Negative for cachectic or obese HEENT Reports moist mucous membranes normocephalic and atraumatic; Negative for trauma or tenderness Eyes PERRL and EOMs intact bilaterally General Eye ED: Negative for pale conjunctiva or scleral icterus Neck no lymphadenopathy, supple and no JVD General: Negative for tenderness Chest Wall inspection of chest normal and palpation of chest normal Chest: Negative for tenderness Resp normal respiratory effort and clear to auscultation bilaterally Effort and Inspection: Negative for respiratory distress Auscultation: Negative for rales, rhonchi or wheezes Cardio regular rate and regular rhythm; Negative for no murmurs Peripheral Pulses: pulses 2+ throughout GI normal to inspection, nondistended, normoactive bowel sounds, soft to palpation, non-tender, non-distended and no masses Auscultation: Negative for hyperactive bowel sounds Palpation: Negative for splenomegaly Rectal Exam: Negative for heme negative stool Back/Spine no CVA tenderness and no thoracic nor lumbar tenderness General Back: Negative for CVA tenderness Cervical Spine: Negative for cervical spine tenderness Extremity normal to inspection General Extremety ED: Negative for edema, pulses abnormal or tenderness General Extremity: Negative for edema or pulses abnormal Neuro oriented x3 Sensorium / Orientation: awake, alert, oriented to person, oriented to place and oriented to time; Negative for confused or lethargic Psych mental status grossly normal Appearance: Negative for unkempt Attitude: No agitated Mood & Affect: Negative for depressed, anxious or tearful Skin no rashes or lesions noted and no wounds General Skin Exam: Negative for jaundice or pallor Rashes: No rashes noted Trauma: Negative for abrasion or laceration MDM MDM MDM Narrative Medical decision making narrative: 82-year-old male had URI symptoms for several days to week. Went to his primary care physician's office today. Was seen by the nurse practitioner. She did an EKG was paced and misinterpreted as a possible [place] and sent him over to the emergency department. He really denies any chest pain or shortness of breath. He does have an extensive cardiac history. Repeat exam patient is doing well at 2:50 PM. I went over all test results with both the and his and son. They are comfortable with him being discharged home. There is no signs of this being a cardiac event. I think he has a viral URI. We discharged home with outpatient follow-up. History & Record Review Discussion w/independent historian: Patient and Family Lab Data Attestation: I reviewed the patient's lab results. Lab results narrative: CBC shows a white count 7.5. H&H 13.9 and 44.5. Platelets are slightly low at 123,000. PT/INR are 23 and 2.2. Electrolytes unremarkable gap of 3. BUN 22 creatinine 1. Glucose 122. Troponin 32. Labs: Laboratory Results - last 24 hr 10/30/22 10/30/22 10/30/22 13:11 13:11 13:11 WBC 7.5 RBC 4.58 L Hgb 13.9 Hct 44.5 MCV 97.2 H MCH 30.3 MCHC 31.2 L RDW Std Deviation 52.5 H RDW Coeff of Abdirahman 14.8 H Plt Count 123 L MPV 11.3 Immature Gran % (Auto) 0.300 Neut % (Auto) 77.9 H Lymph % (Auto) 9.2 L [place] % (Auto) 8.4 Eos % (Auto) 3.8 Baso % (Auto) 0.4 Absolute Neuts (auto) 5.8 Absolute Lymphs (auto) 0.69 L Nucleated RBC % 0 PT 23.7 H INR 2.2 Sodium 140 Potassium 3.6 Chloride 105 Carbon Dioxide 32.0 Anion Gap 3 L BUN 22 H Creatinine 1.07 Estim Creat Clear Calc 43.58 Est GFR (MDRD) Af Amer 85 Est GFR (MDRD) Non-Af 70 BUN/Creatinine Ratio 20.6 H Glucose 122 H Calcium 9.2 Troponin I High Sens 32 Radiography Chest X-Ray - ED: 1 View, Read by ED Physician, Mediastinum, Bony Structures, Chronic Changes, Cardiomegaly, No Infiltrates, Right Effusion and Left Effusion Diagnostic Testing: Clinical Impression(s) from Imaging Studies Chest X-Ray 10/30/22 13:50 IMPRESSION: Cardiomegaly and mild degree of CHF. Blunting of both costophrenic angles more prominent at the left lung base with atelectasis. Electronically Signed: Carlos Ron MD at 14:13 EDT , Chest x-ray, portable, single view interpreted by myself and the radiologist. Shows cardiomegaly. Left-sided pacer defibrillator. Small bilateral pleural effusions. No infiltrates. Rhythm Strip Rhythm Strip: Ventricularly paced Rate: 59 Ectopy: None EKG Initial EKG: Attestation: I personally reviewed and interpreted this EKG as follows: Interpretation: Paced Comments: Ventricularly paced rhythm rate of 59. No acute signs of [place] or ischemia. Discharge Plan Triage ED Provider: Gino Wang Dx/Rx/DC Orders Clinical Impression: Viral URI, Hx of CABG, Ischemic cardiomyopathy, Chronic anticoagulation Instructions: ED URI, Viral, No Abx (Adult) Prescriptions: No Action cholecalciferol (vitamin D3) 50 mcg (2,000 unit) capsule 50 mcg PO DAILY warfarin 3 mg tablet 3 mg PO .COMPLEX Protocol: Dose Management Condition: Wednesday Dose/Route: 3 mg Instruction: 1 x 3 mg tablet Condition: Wednesday Dose/Route: 3 mg Instruction: 1 x 3 mg tablet Condition: Wednesday Dose/Route: 3 mg Instruction: 1 x 3 mg tablet Condition: Wednesday Dose/Route: 2 mg Instruction: 1 x 2 mg tablet Condition: Dose/Route: 2 mg Instruction: 1 x 2 mg tablet Condition: Wednesday Dose/Route: 2 mg Instruction: 1 x 2 mg tablet Condition: Wednesday Dose/Route: 3 mg Instruction: 1 x 3 mg tablet Protocol Text: Adjustment Start Date: Wednesday10/23/22 INR Value: 2.0 INR Date: 10/22/22 Recheck Date: 10/29/22 Rx Instructions: 3 mg PO Take 1 tab by mouth x 6 days and then take one and one half tab x1 day; or as directed; clonazepam [Klonopin] 0.5 MG tablet 0.5 mg PO TID Label Comments: ANXIETY aspirin 81 MG tablet 81 mg PO QHS Label Comments: HEART ascorbic acid (vitamin C) 500 MG tablet 500 mg PO DAILY@0800 Label Comments: SUPPLEMENT PreserVision AREDS-2 250-90-40-1 mg Capsule 1 tab PO BID furosemide 40 mg tablet 40 mg PO BID Qty: 180 3RF losartan 100 mg tablet 100 mg PO DAILY Qty: 90 3RF warfarin 2 mg tablet 2 mg PO .COMPLEX Qty: 30 12RF Protocol: Dose Management Condition: Wednesday Dose/Route: 3 mg Instruction: 1 x 3 mg tablet Condition: Wednesday Dose/Route: 3 mg Instruction: 1 x 3 mg tablet Condition: Wednesday Dose/Route: 3 mg Instruction: 1 x 3 mg tablet Condition: Wednesday Dose/Route: 2 mg Instruction: 1 x 2 mg tablet Condition: Dose/Route: 2 mg Instruction: 1 x 2 mg tablet Condition: Wednesday Dose/Route: 2 mg Instruction: 1 x 2 mg tablet Condition: Wednesday Dose/Route: 3 mg Instruction: 1 x 3 mg tablet Protocol Text: Adjustment Start Date: Wednesday10/23/22 INR Value: 2.0 INR Date: 10/22/22 Recheck Date: 10/29/22 Rx Instructions: 2 mg orally take 1 tab by mouth for 3 days of the week and then take a 3mg tab by mouth four days of the week or as directed.; digoxin 125 mcg (0.125 mg) tablet 125 mcg PO DAILY Qty: 90 3RF carvedilol 25 mg tablet 25 mg PO BID Qty: 180 3RF atorvastatin 10 mg tablet 10 mg PO QHS Qty: 30 12RF Hold Instructions: Mhyalgias potassium chloride 10 mEq tablet,ER particles/crystals 20 meq PO DAILY Qty: 180 3RF amiodarone 200 mg tablet 200 mg PO DAILY Qty: 90 3RF Primary Care Provider: Handy Beltran Referrals: Handy Beltran DO [Primary Care Provider] - As Needed Activity Restrictions/Additional Instructions: Continue your current medications as prescribed. This appears to be a virus you do not need an antibiotic. Follow-up with your doctor if not improving. Your labs, EKG and chest x-ray were your normal baseline. No significant changes. Disposition Disposition: Home, Self Care
[2022-10-30 14:11] LABS: Anion Gap 3 (5-15); BUN 22 mg/dL (7-18); BUN/Creat Ratio 20.6 RATIO (10-20); Calcium,Total 9.2 mg/dL (8.5-10.1); Chloride 105 mmol/L (98-107); Creatinine, Serum 1.07 mg/dL (0.70-1.30); EST Glomerular Filtration Rate 70 mL/min (>60); Est Glom Filt Rate - Afr Amer 85 mL/min (>60); Estimated Creatinine Clearance 43.58 ml/min; Glucose 122 mg/dL (74-106); Potassium 3.6 mmol/L (3.5-5.1); Sodium Level 140 mmol/L (136-145); Troponin-I HS (w/2H Reflex) 32 pg/mL (3.0-78.0)
[2022-10-30 14:17] LABS: International Normalized Ratio 2.2; Prothrombin Time (Protime)PT. 23.7 SECONDS (11.7-14.9)
[2022-10-30 14:18] VITALS: PULSE 60
[2022-10-30 14:53] VITALS: BP 111/71; PULSE 61; RESP 18; O2SAT 92
== END 2022-10-30 15:10 | disposition home or self-care (01) ==
PROVIDERS: Emergency Provider Emergency Medicine; PCP Student in an Organized Health Care Education/Training Program; Visit Provider Emergency Medicine
DX: J06.9 Acute upper respiratory infection, unspecified (principal); I69.352 Hemiplegia and hemiparesis following cerebral infarction affecting left dominant side; I11.0 Hypertensive heart disease with heart failure; I50.42 Chronic combined systolic (congestive) and diastolic (congestive) heart failure; I49.01 Ventricular fibrillation; I48.91 Unspecified atrial fibrillation; I25.709 Atherosclerosis of coronary artery bypass graft(s), unspecified, with unspecified angina pectoris; E78.5 Hyperlipidemia, unspecified; I25.5 Ischemic cardiomyopathy; Z79.01 Long term (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 of 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; Z95.1 Presence of aortocoronary bypass graft; Z95.0 Presence of cardiac pacemaker; I25.10 Atherosclerotic heart disease of native coronary artery without angina pectoris; F41.9 Anxiety disorder, unspecified; I25.2 Old myocardial infarction; Z79.899 Other long term (current) drug therapy; Z79.82 Long term (current) use of aspirin; Z90.49 Acquired absence of other specified parts of digestive tract; Z95.5 Presence of coronary angioplasty implant and graft
CPT/HCPCS: 71045; 80048; 84484; 85025; 85610; 93005; 99285; J7030; A4216

== ENCOUNTER → 2022-11-06 | Outpatient (CLI) | payer MEDICARE, SELFPAY ==
[2022-11-06 10:05] LABS: Absolute Lymphocyte Count 0.57 X10^3/uL (0.83-4.51); Absolute Neutrophil Count 5.4 X10^3/uL (2.0-7.7); Basophil# 0.02 X10^3/uL; Basophil% 0.3 % (0-1); Eosinophil# 0.28 X10^3/uL; Eosinophils% 4.1 % (0-5); Hematocrit 45.5 % (40-54); Lymphocyte # 0.57 X10^3/ul (0.83-4.51); Lymphocyte % 8.3 % (19-41); Mean Corp Hgb Conc 30.8 g/dL (32-36); Mean Corpuscular Hgb 30.7 pg (27.0-32.0); Mean Corpuscular Volume 99.8 fL (80-94); Mean Platelet Vol. 11.5 fl (6.2-12.0); Monocyte# 0.55 X10^3/uL; Monocyte% 8.1 % (0-10); NRBC Flagged by Analyzer 0 % (0-5); Neutrophil # 5.39 X10^3/uL (2.7-7.7); Neutrophil % 78.9 % (47-70); POSITIVE DIFFERENTIAL YES; Platelet Count 120 K/mm3 (150-450); RBC Distribution Width CV 15.3 % (11.6-14.6); RBC Distribution Width SD 56.3 fl (35.1-43.9); Red Blood Count 4.56 M/mm3 (4.6-6.2); White Blood Count 6.8 K/mm3 (4.4-11.0)
[2022-11-06 10:07] LABS: Differential Indicated SCAN CRITERIA MET
[2022-11-06 10:39] LABS: BNP,B-Type NATRIURETIC PEPTIDE 807.9 pg/mL (0-100)
[2022-11-06 10:47] LABS: Anion Gap 2 (5-15); BUN 24 mg/dL (7-18); BUN/Creat Ratio 19.2 RATIO (10-20); Calcium,Total 9.4 mg/dL (8.5-10.1); Chloride 102 mmol/L (98-107); Creatinine, Serum 1.25 mg/dL (0.70-1.30); EST Glomerular Filtration Rate 59 mL/min (>60); Est Glom Filt Rate - Afr Amer 71 mL/min (>60); Glucose 112 mg/dL (74-106); Potassium 3.7 mmol/L (3.5-5.1); Sodium Level 138 mmol/L (136-145)
== END | disposition home or self-care (01) ==
LOC: LAB 09:22
PROVIDERS: PCP Student in an Organized Health Care Education/Training Program; Referring Provider Nurse Practitioner Gerontology; Visit Provider Nurse Practitioner Gerontology
DX: R06.09 Other forms of dyspnea (principal); I50.42 Chronic combined systolic (congestive) and diastolic (congestive) heart failure
CPT/HCPCS: 36415; 80048; 83880; 85025

== ENCOUNTER 2022-11-17 06:55 | Day surgery (SDC) | payer MEDICARE, SELFPAY ==
[2022-11-16 08:50] VITALS: BMI 29.9
[2022-11-16 11:24] LABS: BNP,B-Type NATRIURETIC PEPTIDE 1108.9 pg/mL (0-100)
[2022-11-16 11:27] LABS: Anion Gap 6 (5-15); BUN 26 mg/dL (7-18); BUN/Creat Ratio 18.8 RATIO (10-20); Calcium,Total 9.2 mg/dL (8.5-10.1); Chloride 104 mmol/L (98-107); Creatinine, Serum 1.38 mg/dL (0.70-1.30); EST Glomerular Filtration Rate 53 mL/min (>60); Est Glom Filt Rate - Afr Amer 64 mL/min (>60); Estimated Creatinine Clearance 33.79 ml/min; Glucose 169 mg/dL (74-106); Potassium 4.1 mmol/L (3.5-5.1); Sodium Level 139 mmol/L (136-145)
[2022-11-17 07:05] LABS: INR Fingerstick 1.5; Prothrombin Time Fingerstick 17.1 SEC (11.7-14.9)
--- NOTE | 2022-11-17 08:54 | CL.D_ITS ---
Patient Name: DARRELL PRIETO Study Date: 11/17/2022 Performing: Miguel Farley MD Ht: 63 inches 160.02 cm : 1940 Wt: 169.01 lbs 76.66 kg Age: 82 Gender: male BSA: 1.8 PROCEDURE(S) PERFORMED [id number])LHC/COR/CABG CLINICAL PROFILE AND INDICATIONS Indications: Cardiac Arrythmia Heart Failure: NYHA Class: 3, Newly Diagnosed: No, Heart Failure Type: Systolic Stress/Imaging Stress/Image Study Performed: No CAD Presentations: No Sxs, no angina. CONCLUSIONS Severe [place] vessel disease with Patent bypass with a ARIZMENDI to the LAD and the saphenous vein graft to the obtuse marginal branch. RECOMMENDATIONS Medical therapy Optimize day and nighttime oxygen use. DESCRIPTION OF PROCEDURE The patient arrived to the procedure lab. The risks and benefits of the procedure as well as a full description of our services here and current unavailability of surgical backup were fully explained to the patient and/or their significant other prior to the catheterization. The Timeout was completed, verifying the correct patient and procedure. The patient's procedural site was prepped and draped in the usual fashion. Local anesthetic was given subcutaneously to left radial region with Lidocaine 2%. Using a modified Seldinger technique, Left internal mammary artery graft to the LAD selective angiography was performed in multiple views using a 5 Fr. IM catheter. Left Coronary Artery selective angiography was performed in multiple views using a 5 Fr. JL4 catheter. Saphenous Vein graft to the Circumflex sequential to Ramus selective angiography was performed in multiple views using a 5 Fr. JR 5 catheter.The arterial sheath was pulled and a TR Band was applied for hemostasis CORONARY ANGIOGRAPHY DOMINANCE: Right Dominant LEFT HEART ASSESSMENT Left Ventricular Ejection Fraction: by Echo 20 % Global Hypokinesis - Severe Depressed Left Ventricular systolic function LEFT MAIN: is occluded LEFT ANTERIOR DESCENDING ARTERY: OSTIAL LAD: is occluded CIRCUMFLEX ARTERY: is occluded RIGHT CORONARY ARTERY: MID RCA: Previously occluded GRAFTS: Sequential graft to the RCA ARIZMENDI graft to the Mid LAD is patent Saphenous Vein graft to the 2nd OM This graft was previously stented and is noted to be patent and seems to anastomose with the ramus intermedius and then the distal circumflex artery filling the distal mild to moderately diseased circumflex arterial system. COLLATERAL FLOW: Collateral flow from Left to Right COMPLICATIONS No Complications PROCEDURE MEDICATIONS Versed 0.5 mg IV Fentanyl 25 mcg IV Oxygen: 4 L/min via nasal cannula Baby Aspirin (81mg) 1 Tabs PO @ 11/17/2022 07:33:53 Heparin given IA 11/17/2022 08:19:26 SUMMARY OF HEMODYNAMIC DATA Time AIR REST ECG 07:24:05 Art 101/40 (55) 08:15:09 AO 104/45 (65) SA 08:21:18 AIR REST 08:49:48 Signed By Miguel Farley MD On 11/17/2022 08:53:34 Miguel Farley MD
== END 2022-11-17 10:35 | disposition home or self-care (01) ==
LOC: CLSP 06:58
PROVIDERS: Nurse Practitioner Gerontology; PCP Student in an Organized Health Care Education/Training Program; Referring Provider Internal Medicine Cardiovascular Disease; Visit Provider Internal Medicine Cardiovascular Disease
DX: I49.01 Ventricular fibrillation (principal); I50.42 Chronic combined systolic (congestive) and diastolic (congestive) heart failure; I11.0 Hypertensive heart disease with heart failure; I48.11 Longstanding persistent atrial fibrillation; I25.709 Atherosclerosis of coronary artery bypass graft(s), unspecified, with unspecified angina pectoris; R06.09 Other forms of dyspnea; I25.5 Ischemic cardiomyopathy; Z95.1 Presence of aortocoronary bypass graft; Z95.810 Presence of automatic (implantable) cardiac defibrillator; E78.5 Hyperlipidemia, unspecified
CPT/HCPCS: 36415; 36416; 80048; 83880; 85610; 93455; 99152; 99153; C1894; Q9967; C1769

== ENCOUNTER → 2022-11-25 | Outpatient (CLI) | payer MEDICARE, SELFPAY ==
[2022-11-25 15:37] LABS: Anion Gap 6 (5-15); BUN 25 mg/dL (7-18); BUN/Creat Ratio 18.9 RATIO (10-20); Calcium,Total 9.1 mg/dL (8.5-10.1); Chloride 103 mmol/L (98-107); Creatinine, Serum 1.32 mg/dL (0.70-1.30); EST Glomerular Filtration Rate 55 mL/min (>60); Est Glom Filt Rate - Afr Amer 67 mL/min (>60); Glucose 124 mg/dL (74-106); Potassium 4.7 mmol/L (3.5-5.1); Sodium Level 141 mmol/L (136-145)
[2022-11-25 15:55] LABS: BNP,B-Type NATRIURETIC PEPTIDE 1122.4 pg/mL (0-100)
== END | disposition home or self-care (01) ==
LOC: LAB 13:59
PROVIDERS: PCP Student in an Organized Health Care Education/Training Program; Referring Provider Nurse Practitioner Gerontology; Visit Provider Nurse Practitioner Gerontology
DX: R06.09 Other forms of dyspnea (principal)
CPT/HCPCS: 36415; 80048; 83880

== ENCOUNTER → 2022-12-02 | Outpatient (CLI) | payer MEDICARE, SELFPAY ==
[2022-12-02 10:50] LABS: Anion Gap 8 (5-15); BUN 34 mg/dL (7-18); BUN/Creat Ratio 18.9 RATIO (10-20); Calcium,Total 8.9 mg/dL (8.5-10.1); Chloride 103 mmol/L (98-107); EST Glomerular Filtration Rate 39 mL/min (>60); Est Glom Filt Rate - Afr Amer 47 mL/min (>60); Glucose 171 mg/dL (74-106); Potassium 4.2 mmol/L (3.5-5.1); Sodium Level 141 mmol/L (136-145)
== END | disposition home or self-care (01) ==
LOC: LAB 09:55
PROVIDERS: PCP Student in an Organized Health Care Education/Training Program; Referring Provider Nurse Practitioner Gerontology; Visit Provider Nurse Practitioner Gerontology
DX: R06.09 Other forms of dyspnea (principal)
CPT/HCPCS: 36415; 80048

== ENCOUNTER → 2022-12-04 | Outpatient (CLI) | payer MEDICARE, SELFPAY ==
--- NOTE | 2022-12-04 13:39 | CT_ITS ---
INDICATION: hemoptysis EXAMINATION: CT CHEST WITH CONTRAST - CT Chest W/ Contrast Injection TECHNIQUE: Helically acquired images were obtained of the chest following IV contrast. A radiation dose optimization technique was used for this scan. IV Contrast dosage and agent: 100 mL Isovue-300 COMPARISON: None. FINDINGS: LUNGS, PLEURA AND LARGE AIRWAYS: Mild atelectasis in the bilateral lung bases with peribronchial consolidation in the left lower lobe. Intralobular septal thickening (smooth) affecting the lower more than upper lobes. Right larger than left pleural effusions. No pneumothorax. THYROID: No thyroid lesions. HEART AND PERICARDIUM: Heart is mildly enlarged. Cardiac conduction device with leads extending to the right atrium and right ventricle. Sternal wires and mediastinal surgical clips compatible with prior CABG. VESSELS: Thoracic aorta is not dilated. No aortic dissection. Central pulmonary arteries are dilated with main pulmonary artery measuring up to 4.3 cm. MEDIASTINUM AND HERRERA: No dominant jose mass. Reactive appearing paratracheal lymph nodes. Esophagus is unremarkable. No hiatal hernia. UPPER ABDOMEN: No acute pathology. Granulomatous calcifications of the liver and spleen. The spleen is mildly enlarged. BONES: No suspicious lytic or blastic abnormality. Degenerative changes of the thoracic spine and shoulders. CT/Chest WITH Contrast IMPRESSION: 1. Small bilateral pleural effusions with interlobular septal thickening and cardiomegaly, probable CHF/pulmonary edema. 2. Peribronchial consolidation of left lower lobe could represent localized atelectasis versus pneumonia. 3. Pulmonary hypertension. Electronically Signed: Malcolm Fitzpatrick ([place]), at 20:49 EDT ,
== END | disposition home or self-care (01) ==
LOC: CT 13:39
PROVIDERS: PCP Student in an Organized Health Care Education/Training Program; Referring Provider Internal Medicine Critical Care Medicine; Visit Provider Internal Medicine Critical Care Medicine
DX: R04.2 Hemoptysis (principal)
CPT/HCPCS: 71260; Q9967

== ENCOUNTER 2022-12-07 10:20 | Inpatient (IN) | payer MEDICARE, SELFPAY ==
[2022-12-07] VITALS (16 sets, daily range): BP systolic 103–134; BP diastolic 59–71; PULSE 50–55; RESP 11–18; TEMP 36.6–36.7; O2SAT 79–100; BMI 31.5; BMI 32.1
--- NOTE | 2022-12-07 10:31 | RAD_ITS ---
INDICATION: Hypoxia/cyanosis EXAMINATION/TECHNIQUE: X-RAY - XR Chest 1 View COMPARISON: October 30, 2022 FINDINGS: LINES/DEVICES: There is a dual-lead cardiac pacer device in place. LUNGS: There are ill-defined opacities within the mid and lower lungs. MEDIASTINUM AND CARDIOVASCULAR STRUCTURES: There is cardiomegaly. There are sternotomy wires in place. Central airways and mediastinal contour are unremarkable. BONES AND SOFT TISSUES: Unremarkable. RAD/Chest 1 View (Portable) IMPRESSION: Bilateral ill-defined opacities may be secondary to some combination of edema, atelectasis and/or pneumonia. Cardiomegaly. Electronically Signed: Caridad Merida MD at 11:17 EDT ,
--- NOTE | 2022-12-07 10:33 | EDS_ITS ---
HPI History of Present Illness Chief Complaint: Complaint Detail of Chief Complaint: Difficulty urinating Informant: patient, spouse/S.O. and family Onset/Context/Timing Onset: Yesterday Context: Sudden Onset Timing: Continuous Quality: Dribbling Location: Current Severity: Moderate Maximum Severity: Moderate Worsened by: Nothing Relieved by: Nothing Associated Symptoms Associated Symptoms: Patient wears oxygen at night for CHF, this had leg swelling Narrative Narrative: Patient is a 82-year-old male with history of of dyspnea on exertion, ventricular tachycardia, atherosclerotic heart disease status post bypass surgery, ischemic cardiomyopathy, chronic combined systolic and diastolic congestive heart failure, essential hypertension, hyperlipidemia, colon cancer, long-term anticoagulant use (Coumadin) and 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 As I entered the room patient is cyanotic. Pulse ox of 78% on room air with good waveform. Patient reports mild shortness of breath at best. According to son he has history of blood clot. Uncertain whether he had a mural thrombus versus a PE. Will review prior records. Patient and family states he has been compliant with his medication. He does endorse leg swelling. He has chronic leg swelling. He sleeps with 1 pillow. He denies orthopnea or PND. He denies chest discomfort. He had a cardiac catheterization performed by Dr. Miguel Farley on November 17 for V. tach. Conclusion was severe iliamna vessel disease with patent bypass of the ARIZMENDI to LAD and saphenous vein graft to the obtuse marginal branch. Recommendation was medical therapy and optimizing day and nighttime oxygen use. Nurse practitioner Joellen at the [facility] office performed history and physical on November 06, 2022. History and physical was for cardiac catheterization. Review of her note indicates patient had a left ventricular mural thrombus diagnosed February 2017 and not a pulmonary embolus. He has been seen by Dr. Sterling Bradley for colon cancer with chemotherapy and surgery. 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 He has also been seen by critical care pulmonology on November 25. Office note authored by Dr. Javier Casarez was reviewed. He was seen to assess hemoptysis. He had a chest with contrast performed day of visit. Patient's last echo was November 2021 and revealed an ejection fracture of 20% with stage II diastolic dysfunction. Prior similar symptoms: Yes Recent Illness/Hospitalization: Yes [facility] Medical History Anxiety Arthritis Atherosclerosis of coronary artery bypass graft of iliamna heart with angina pectoris Atherosclerotic heart disease of iliamna coronary artery without angina pectoris Atrial fibrillation Back pain Chronic combined systolic and diastolic CHF (congestive heart failure) Colon cancer Essential hypertension History of hiatal hernia History of non-ST elevation myocardial infarction (NSTEMI) (05/27/21) History of pain when walking History of steroid therapy History of stroke Hyperlipidemia Ischemic cardiomyopathy Kidney stone Longstanding persistent atrial fibrillation LV (left ventricular) mural thrombus Non-smoker Nonrheumatic mitral (valve) insufficiency Osteoarthritis Personal history of colon cancer, stage III Personal history of colonic polyps Stroke/cerebrovascular accident Ventricular tachycardia (paroxysmal) Wallenberg syndrome Wears glasses Home Medications clonazepam 0.5 mg tablet (Klonopin) 0.5 mg PO TID anxiety 08/11/13 [History Last Taken 11/17/22] ascorbic acid (vitamin C) 500 mg tablet 500 mg PO DAILY@0800 supplement 07/11/15 [History Last Taken 05/26/21] aspirin 81 mg tablet,delayed release 81 mg PO QHS heart [facility] 07/11/15 [History Last Taken 11/17/22] vit C 250 mg-vit E 90 mg-zinc 40 mg-copper 1 xa-thindb-nekegu capsule (PreserVision AREDS-2) 1 tab PO BID eye vitamin 02/24/21 [History Last Taken 05/26/21] warfarin 3 mg tablet 3 mg PO .COMPLEX blood thinner 12/10/21 [History Last Taken Unknown] cholecalciferol (vitamin D3) 50 mcg (2,000 unit) capsule 50 mcg PO DAILY 04/02/22 [History Last Taken Unknown] carvedilol 25 mg tablet 25 mg PO BID blood pressure #180 tabs 08/19/22 [Rx Last Taken 11/17/22] digoxin 125 mcg (0.125 mg) tablet 125 mcg PO DAILY blood pressure #90 tabs 08/19/22 [Rx Last Taken 11/17/22] atorvastatin 10 mg tablet 10 mg PO QHS #30 tabs 09/08/22 [Rx Last Taken Unknown] amiodarone 200 mg tablet 200 mg PO DAILY #90 tabs 10/19/22 [Rx Last Taken 11/17/22] potassium chloride 10 mEq tablet,extended release(part/cryst) 20 meq PO DAILY supplement #180 tabs 10/19/22 [Rx Last Taken 11/17/22] losartan 100 mg tablet 50 mg PO DAILY [facility] closed, no power. 11/06/22 [History Last Taken 11/17/22] furosemide 40 mg tablet 60 mg PO BID #180 tabs 11/27/22 [Rx Last Taken Unknown] warfarin 2 mg tablet 2 mg PO .COMPLEX #30 tabs 11/27/22 [Rx Last Taken Unknown] Allergy/AdvReac Type Severity Reaction Status Date / Time KALEIGH Inhibitors AdvReac Other Verified 12/07/22 10:21 levofloxacin [From Levaquin] AdvReac aching Verified 12/07/22 10:21 legs trouble walking Family History Father Hypertension Heart disease Surgical History H/O coronary artery bypass surgery (08/27/05) History of ankle fusion History of cholecystectomy History of colon surgery History of colonoscopy (2016) History of coronary artery stent placement (05/27/21) History of implantable cardiac defibrillator (ICD) (02/10/17) History of left heart catheterization History of left hip replacement History of right knee joint replacement Hx of cataract surgery Social History (Updated 12/07/22 @ 10:[address] Uzair De La Torre MD) household members: spouse Smoking Status: Never smoker alcohol intake: never substance use type: does not use caffeine: Yes Type: coffee Number of servings: 1 ROS ROS ED Constitutional Constitutional ED: Denies chills, fever(s), subjective, sweats or weight loss Eyes Eyes: Denies blurry vision, change in vision or diplopia ENT ENT ED: Denies ear pain, rhinorrhea or sore throat Cardiovascular Cardiovascular: Denies chest pain, orthopnea, palpitations, paroxysmal nocturnal dyspnea or racing heartbeat Respiratory/Chest Respiratory/Chest: Reports dyspnea and dyspnea on exertion; Denies cough, orthopnea or paroxysmal nocturnal dyspnea Gastrointestinal Gastrointestinal: Denies abdominal pain, nausea or vomiting Genitourinary Genitourinary ED: Denies dysuria, hematuria or urinary frequency Musculoskeletal Musculoskeletal: Denies arthralgias, back pain, myalgias or neck pain Neurologic Neurologic: Denies headache(s), paresthesias or weakness Psychiatric Psychiatric: Denies anxiety Endocrine Endocrinology: Denies cold intolerance or heat intolerance Hematologic/Lymphatic Hematologic/Lymphatic: Reports systems reviewed and no addt'l complaints, except as documented Allergic/Immunologic Allergic/Immunologic ED: Denies mouth swelling or tongue swelling EXAM Physical Exam Const Vital Signs: 12/07/22 10:22 12/07/22 10:37 12/07/22 10:57 Temperature 97.8 F Temperature Source Temporal Pulse Rate 55 L Respiratory Rate 18 Respiratory Effort Respiratory Depth Respiratory Pattern Blood Pressure 103/59 L Blood Pressure Mean 73 Pulse Ox 81 100 98 Oxygen Delivery Method Room Air Non-Rebreather Nasal Cannula Oxygen Flow Rate (L/min) 15 4 12/07/22 11:24 12/07/22 12:17 12/07/22 11:21 Temperature Temperature Source Pulse Rate Respiratory Rate 18 Respiratory Effort Normal Non-Labored Respiratory Depth Normal Respiratory Pattern Normal Blood Pressure Blood Pressure Mean Pulse Ox 97 Oxygen Delivery Method Room Air Nasal Cannula Oxygen Flow Rate (L/min) 2 12/07/22 12:21 12/07/22 13:51 12/07/22 13:55 Temperature Temperature Source Pulse Rate 50 L Respiratory Rate 11 L Respiratory Effort Respiratory Depth Respiratory Pattern Blood Pressure 134/65 H Blood Pressure Mean 88 Pulse Ox 92 94 85 Oxygen Delivery Method Nasal Cannula Room Air Room Air Oxygen Flow Rate (L/min) 2 12/07/22 13:55 12/07/22 13:57 Temperature Temperature Source Pulse Rate Respiratory Rate Respiratory Effort Respiratory Depth Respiratory Pattern Blood Pressure Blood Pressure Mean Pulse Ox 90 94 Oxygen Delivery Method Nasal Cannula Nasal Cannula Oxygen Flow Rate (L/min) 4 4 Positive well nourished and well developed Constitutional Narrative: Patient has evidence of peripheral and central cyanosis. As previously documented pulse ox was 75% with good waveform. General Appearance ED: well developed, NAD and pallor HEENT Reports moist mucous membranes HEENT Narrative: Head is atraumatic normocephalic. Ears normal. Nares patent. Uvula midline. No deviation with protrusion. Lips are cyanotic. Eyes PERRL and EOMs intact bilaterally General Eye ED: Negative for pale conjunctiva or scleral icterus Neck no lymphadenopathy, supple and no JVD Chest Wall inspection of chest normal and palpation of chest normal Resp normal respiratory effort and clear to auscultation bilaterally Cardio S1 normal heart sound and S2 normal heart sound; Negative for no murmurs Rate: bradycardia Rhythm: abnormal rhythm other (Paced rhythm noted on the monitor. Rate is 50.) GI normal to inspection, nondistended, normoactive bowel sounds; Negative for non- tender, non-distended, hepatosplenomegaly or no masses GI Narrative: Bladder is enlarged to percussion and palpation. Auscultation: hypoactive bowel sounds Palpation: soft; Negative for guarding, splenomegaly or rebound tenderness present Back/Spine no CVA tenderness Extremity Negative for normal to inspection General Extremety ED: Yes edema; Negative for tenderness General Extremity: edema Neuro oriented x3 and CN's II-XII intact bilaterally Sensorium / Orientation: alert Psych mental status grossly normal Skin no rashes or lesions noted, no wounds and skin turgor normal Skin Narrative: Patient has evidence of cyanosis of his bodies. General Skin Exam: pallor; Negative for elasticity normal or jaundice MDM MDM MDM Narrative Medical decision making narrative: After reviewing recent office notes by cardiology and pulmonology as well as cath report there is no mention of significant hypoxia. Per Dr. Miguel Farley's note patient needs optimize his oxygen use. If there is no obvious findings on chest x-ray and INR subtherapeutic will consider CTA of the chest to evaluate for PE. Since he was seen by Dr. Casarez earlier this month for hemoptysis will review prior CAT scan result. EKG was obtained to assess for any obvious ischemia. EKG revealed a ventricular paced rhythm with a rate of 51. CBC was obtained to assess H&H. BMP to assess renal function. Patient was placed on a nonrebreather mask. ABG was obtained to assess acid-base status as well as a gradient. History & Record Review Additional record(s) reviewed:: Prior inpatient record, Prior outpatient record and Prior labs Lab Data Attestation: I reviewed the patient's lab results. Lab results narrative: CBC is unremarkable. D-dimer is elevated even after correction for age of 1.18. Will review x-ray. If there is an infiltrate this would explain his hypoxia and his elevated D-dimer. PT/INR therapeutic. D-dimer is elevated 118. CTA of the chest reveals bilateral pleural effusion right greater than left and infiltrate right lower lobe. There is no evidence of PE. 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 Labs: Laboratory Results - last 24 hr 05/12/07/22 12/07/22 10:30 10:30 10:30 WBC 6.3 RBC 4.42 L Hgb 14.1 Hct 46.2 MCV 104.5 H MCH 31.9 MCHC 30.5 L RDW Std Deviation 66.2 H RDW Coeff of Abdirahman 17.2 H Plt Count 131 L MPV 11.1 Immature Gran % (Auto) 0.300 Neut % (Auto) 81.8 H Lymph % (Auto) 7.9 L [place] % (Auto) 6.9 Eos % (Auto) 2.8 Baso % (Auto) 0.3 Absolute Neuts (auto) 5.2 Absolute Lymphs (auto) 0.50 L Nucleated RBC % 0 Anisocytosis 1+ PT INR D-Dimer Quant (PE/DVT) 1.18 H* Sodium 144 Potassium 4.1 Chloride 103 Carbon Dioxide 34.0 H Anion Gap 7 BUN 34 H Creatinine 1.38 H Estim Creat Clear Calc 33.79 Est GFR (MDRD) Af Amer 64 Est GFR (MDRD) Non-Af 53 L BUN/Creatinine Ratio 24.6 H Glucose 117 H Calcium 9.0 Troponin I High Sens 36 12/07/22 10:38 WBC RBC Hgb Hct MCV MCH MCHC RDW Std Deviation RDW Coeff of Abdirahman Plt Count MPV Immature Gran % (Auto) Neut % (Auto) Lymph % (Auto) [place] % (Auto) Eos % (Auto) Baso % (Auto) Absolute Neuts (auto) Absolute Lymphs (auto) Nucleated RBC % Anisocytosis PT 26.1 H INR 2.4 D-Dimer Quant (PE/DVT) Sodium Potassium Chloride Carbon Dioxide Anion Gap BUN Creatinine Estim Creat Clear Calc Est GFR (MDRD) Af Amer Est GFR (MDRD) Non-Af BUN/Creatinine Ratio Glucose Calcium Troponin I High Sens ABG Data Attestation: I personally reviewed and interpreted this ABG as follows: Interpretation: ABG reveals chronic CO2 retention. And increased AA gradient. pH is 7.39, PCO2 59.6, PO2 213.6, bicarb 36.3, base excess +11.3 and saturation 99.7%. ABG results: ABG 12/07/22 10:51 Specimen Type ART Sample Site R Radial pH 7.39 Bicarbonate Actual 36.3 H Total CO2 38 Base Excess 11 H O2 Saturation 100 H ABG pCO2 59.6 H ABG pO2 214 H Johnathon Test Positive O2 Delivery Device NRB Liter Flow 15.0 Radiography Chest X-Ray - ED: 1 View and Read by ED Physician (Limited study due to slight rotation, limited inspiratory volume. There is cardiomegaly. Cardiac silhouet te does not appear obscured. There appears to be increased markings left lower lobe. Osseous structures are unremarkable. There is no evidence of heart failure. This is independently review) Diagnostic Testing: Clinical Impression(s) from Imaging Studies Chest X-Ray 12/07/22 10:31 IMPRESSION: Bilateral ill-defined opacities may be secondary to some combination of edema, atelectasis and/or pneumonia. Cardiomegaly. Electronically Signed: Caridad Merida MD at 11:17 EDT , Chest CTA 12/07/22 11:20 IMPRESSION: No demonstrated pulmonary embolism or arterial dissection. Stable bilateral pleural effusions. Bilateral lower lobe consolidation. Cardiomegaly. Atherosclerosis. Evidence of prior granulomatous disease. Electronically Signed: Caridad Merida MD at 14:51 EDT , Impression of CT performed December 04 CT/Chest WITH Contrast IMPRESSION: ? 1.? Small bilateral pleural effusions with interlobular septal thickening and cardiomegaly, probable CHF/pulmonary edema. 2.? Peribronchial consolidation of left lower lobe could represent localized atelectasis versus pneumonia. 3.? Pulmonary hypertension. ? EKG Initial EKG: Attestation: I personally reviewed and interpreted this EKG as follows: Interpretation: Paced (Ventricular paced rhythm rate of 51. QRS duration 176 ms. QT duration 484 ms.) Treatment and Re-Evaluation :: CT reveals bilateral lower lobe consolidation and bilateral pleural effusion. Pleural effusions are stable. The lower lobe consolidation is new. Since patient lactate is normal and there is no evidence of endorgan dysfunction blood cultures were not obtained. 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, Pneumonia of both lower lobes, Bilateral pleural effusion, History of chronic CHF Prescriptions: No Action cholecalciferol (vitamin D3) 50 mcg (2,000 unit) capsule 50 mcg PO DAILY warfarin 3 mg tablet 3 mg PO .COMPLEX Protocol: Dose Management Condition: Wednesday Dose/Route: 3 mg Instruction: 1 x 3 mg tablet Condition: Wednesday Dose/Route: 3 mg Instruction: 1 x 3 mg tablet Condition: Wednesday Dose/Route: 3 mg Instruction: 1 x 3 mg tablet Condition: Wednesday Dose/Route: 2 mg Instruction: 1 x 2 mg tablet Condition: Dose/Route: 3 mg Instruction: 1 x 3 mg tablet Condition: Wednesday Dose/Route: 3 mg Instruction: 1 x 3 mg tablet Condition: Wednesday Dose/Route: 3 mg Instruction: 1 x 3 mg tablet Protocol Text: Adjustment Start Date: 12/03/22 INR Value: 2.0 INR Date: 12/03/22 Recheck Date: 12/17/22 Rx Instructions: 3 mg PO Take 1 tab by mouth x 6 days and then take one and one half tab x1 day; or as directed; losartan 100 mg tablet 50 mg PO DAILY clonazepam [Klonopin] 0.5 MG tablet 0.5 mg PO TID Label Comments: ANXIETY aspirin 81 MG tablet 81 mg PO QHS Label Comments: HEART ascorbic acid (vitamin C) 500 MG tablet 500 mg PO DAILY@0800 Label Comments: SUPPLEMENT PreserVision AREDS-2 250-90-40-1 mg Capsule 1 tab PO BID digoxin 125 mcg (0.125 mg) tablet 125 mcg PO DAILY Qty: 90 3RF carvedilol 25 mg tablet 25 mg PO BID Qty: 180 3RF atorvastatin 10 mg tablet 10 mg PO QHS Qty: 30 12RF Hold Instructions: Mhyalgias potassium chloride 10 mEq tablet,ER particles/crystals 20 meq PO DAILY Qty: 180 3RF amiodarone 200 mg tablet 200 mg PO DAILY Qty: 90 3RF furosemide 40 mg tablet 60 mg PO BID Qty: 180 3RF warfarin 2 mg tablet 2 mg PO .COMPLEX Qty: 30 12RF Protocol: Dose Management Condition: Wednesday Dose/Route: 3 mg Instruction: 1 x 3 mg tablet Condition: Wednesday Dose/Route: 3 mg Instruction: 1 x 3 mg tablet Condition: Wednesday Dose/Route: 3 mg Instruction: 1 x 3 mg tablet Condition: Wednesday Dose/Route: 2 mg Instruction: 1 x 2 mg tablet Condition: Dose/Route: 3 mg Instruction: 1 x 3 mg tablet Condition: Wednesday Dose/Route: 3 mg Instruction: 1 x 3 mg tablet Condition: Wednesday Dose/Route: 3 mg Instruction: 1 x 3 mg tablet Protocol Text: Adjustment Start Date: 12/03/22 INR Value: 2.0 INR Date: 12/03/22 Recheck Date: 12/17/22 Rx Instructions: 2 mg orally take 1 tab by mouth for 3 days of the week and then take a 3mg tab by mouth four days of the week or as directed.; Primary Care Provider: Handy Beltran Referrals: Handy Beltran DO [Primary Care Provider] - Disposition Disposition: Home, Self Care
[2022-12-07 10:40] LABS: Absolute Neutrophil Count 5.2 X10^3/uL (2.0-7.7); Basophil# 0.02 X10^3/uL; Basophil% 0.3 % (0-1); Eosinophil# 0.18 X10^3/uL; Eosinophils% 2.8 % (0-5); Hematocrit 46.2 % (40-54); Hemoglobin 14.1 g/dL (13.0-16.5); Lymphocyte % 7.9 % (19-41); Mean Corp Hgb Conc 30.5 g/dL (32-36); Mean Corpuscular Hgb 31.9 pg (27.0-32.0); Mean Corpuscular Volume 104.5 fL (80-94); Mean Platelet Vol. 11.1 fl (6.2-12.0); Monocyte# 0.44 X10^3/uL; Monocyte% 6.9 % (0-10); NRBC Flagged by Analyzer 0 % (0-5); Neutrophil # 5.18 X10^3/uL (2.7-7.7); Neutrophil % 81.8 % (47-70); POSITIVE DIFFERENTIAL YES; POSITIVE MORPHOLOGY YES; Platelet Count 131 K/mm3 (150-450); RBC Distribution Width CV 17.2 % (11.6-14.6); RBC Distribution Width SD 66.2 fl (35.1-43.9); Red Blood Count 4.42 M/mm3 (4.6-6.2); White Blood Count 6.3 K/mm3 (4.4-11.0)
[2022-12-07 10:43] LABS: Differential Indicated SCAN CRITERIA MET
[2022-12-07 10:51] LABS: D-Dimer Quantitative (DVT/PE) 1.18 FEU/ug/m (0.27-0.49)
[2022-12-07 10:56] LABS: Allen Test Positive; Base Excess 11 mmol/L (-2 to +2); Bicarbonate 36.3 mmol/L (22-26); Blood Gas Specimen Type ART; O2 Delivery Device NRB; PO2 214 mmHG (75-100); SITE R Radial; SO2 100 % (95-99); Total Carbon Dioxide 38 mmol/L; pCO2 59.6 mmHg (35-45); pH 7.39 (7.35-7.45)
[2022-12-07 10:57] LABS: International Normalized Ratio 2.4; Prothrombin Time (Protime)PT. 26.1 SECONDS (11.7-14.9)
[2022-12-07 11:06] LABS: Anisocytosis 1+
--- NOTE | 2022-12-07 11:20 | CT_ITS ---
STUDY: CTA CHEST REASON FOR EXAM: Male, 82 years old. Cyanosis, elevated D-dimer RADIATION DOSAGE (If Supplied By Facility): CTDIvol = ( 16.42 ) mGy, DLP = ( 400.48 ) mGycm TECHNIQUE: The examination was performed with the intravenous administration of IV 100mL [id number]-370. Post-processing of the angiographic images was performed, with multiplanar reformation and 3D reconstruction. Individualized dose optimization techniques were used for this CT. COMPARISON: January 15, 2016 and December 04, 2022 FINDINGS: Normal enhancement of the main pulmonary artery and right and left pulmonary arteries. Normal enhancement of the bilateral peripheral pulmonary arteries. There is no demonstrated pulmonary embolism. Normal thoracic aorta and visualized great vessels. There is no demonstrated aortic dissection. There are calcifications of the coronary arteries. There is cardiomegaly. There is a cardiac pacer device in place. Normal mediastinum. Normal hilar regions. Normal visualized trachea and bronchi. There are grossly stable bilateral pleural effusions associated with bilateral lower lobe consolidation. There is minimal atelectasis and/or scarring within the mid and lower lungs. There are sternotomy wires in place. There are degenerative changes of thoracic spine. The limited images of the upper abdomen demonstrate hepatic and splenic granulomas. There is a stable left adrenal nodule which may be secondary to an adenoma. CT/CTA Chest W/WO Contrast IMPRESSION: No demonstrated pulmonary embolism or arterial dissection. Stable bilateral pleural effusions. Bilateral lower lobe consolidation. Cardiomegaly. Atherosclerosis. Evidence of prior granulomatous disease. Electronically Signed: Caridad Merida MD at 14:51 EDT ,
[2022-12-07 12:35] LABS: Anion Gap 7 (5-15); BUN 34 mg/dL (7-18); BUN/Creat Ratio 24.6 RATIO (10-20); Chloride 103 mmol/L (98-107); Creatinine, Serum 1.38 mg/dL (0.70-1.30); EST Glomerular Filtration Rate 53 mL/min (>60); Est Glom Filt Rate - Afr Amer 64 mL/min (>60); Estimated Creatinine Clearance 33.79 ml/min; Glucose 117 mg/dL (74-106); Potassium 4.1 mmol/L (3.5-5.1); Sodium Level 144 mmol/L (136-145); Troponin-I HS 36 pg/mL (3.0-78.0)
[2022-12-07 15:00] LABS: Bacteria 0 SEEN /hpf (None Seen); Mucous, Urine 0 SEEN /hpf (<or=2+); Squamous Epithelial Cells - UA 0 SEEN /hpf (0-5)
[2022-12-07 15:01] LABS: Color, Urine Yellow (Yellow); Glucose, Dipstick Normal (Normal); Ketone-Dipstick Negative (Negative); Leukocyte Esterase-Dipstick 25 /ul (Negative); Nitrite-Dipstick Negative (Negative); Occult Blood-Urine 25 /ul (Negative); Protein-Dipstick 15 mg/dl (Negative); Urine Bilirubin Dipstick Negative (Negative); Urine Clarity Clear (Clear); Urine Urobilinogen 1 mg/dl (Normal); Urine pH 6.5 (5.0 - 8.0)
[2022-12-07 15:08] LABS: Red Blood Cells-Urine 0-5 SEEN /hpf (0-5); White Blood Cells 0-5 SEEN /hpf (0-5)
--- NOTE | 2022-12-07 15:54 | PCM.HP.STD ---
HPI - General General Date of Admission: 12/07/22 Date of Service: 12/07/22 Chief Complaint: dysuria HPI Narrative DARRELL PRIETO, is a 82 M who presents with a chief complaint of dysuria. Patient states that his been urinating smaller amounts and when he does urinate it lomeli. This been going on for the past few days and he sought attention for that. When he arrived, he was noted to be 79% on room air. Patient was denying any shortness of breath, however. Patient underwent CT scan of his chest that showed some new infiltrates. Patient had a CAT scan performed on the 26 evaluated for hemoptysis and he was noted to have effusions at that time which she still does today. Patient states that he was coughing up blood but since then, his sputum has changed from brown to green. Denies any fever or chills. Patient received ceftriaxone and azithromycin in the emergency room. Patient does have oxygen at home but only is to use that at night but he has been using it periodically throughout the day though not on any continuous basis. 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 Atrial fibrillation Back pain Chronic combined systolic and diastolic CHF (congestive heart failure) Colon cancer Essential hypertension History of hiatal hernia History of non-ST elevation myocardial infarction (NSTEMI) (05/27/21) History of pain when walking History of steroid therapy History of stroke Hyperlipidemia Ischemic cardiomyopathy Kidney stone Longstanding persistent atrial fibrillation LV (left ventricular) mural thrombus Non-smoker Nonrheumatic mitral (valve) insufficiency Osteoarthritis Personal history of colon cancer, stage III Personal history of colonic polyps Stroke/cerebrovascular accident Ventricular tachycardia (paroxysmal) Wallenberg syndrome Wears glasses Home Medications clonazepam 0.5 mg tablet (Klonopin) 0.5 mg PO TID anxiety 08/11/13 [History Last Taken 11/17/22] ascorbic acid (vitamin C) 500 mg tablet 500 mg PO DAILY@0800 supplement 07/11/15 [History Last Taken 05/26/21] aspirin 81 mg tablet,delayed release 81 mg PO QHS [facility] 07/11/15 [History Last Taken 11/17/22] vit C 250 mg-vit E 90 mg-zinc 40 mg-copper 1 fo-[id number] capsule (PreserVision AREDS-2) 1 tab PO BID eye vitamin 02/24/21 [History Last Taken 05/26/21] cholecalciferol (vitamin D3) 50 mcg (2,000 unit) capsule 50 mcg PO DAILY 04/02/22 [History Last Taken Unknown] carvedilol 25 mg tablet 25 mg PO BID blood pressure #180 tabs 08/19/22 [Rx Last Taken 11/17/22] digoxin 125 mcg (0.125 mg) tablet 125 mcg PO DAILY blood pressure #90 tabs 08/19/22 [Rx Last Taken 11/17/22] atorvastatin 10 mg tablet 10 mg PO QHS #30 tabs 09/08/22 [Rx Last Taken Unknown] losartan 100 mg tablet 50 mg PO DAILY [place] [facility] closed, no power. 11/06/22 [History Last Taken 11/17/22] bumetanide 1 mg tablet 1 mg PO BID 12/07/22 [History Last Taken Unknown] potassium chloride 10 mEq tablet,extended release(part/cryst) 10 meq PO BID supplement 12/07/22 [History Last Taken Unknown] warfarin 2 mg tablet See Rx Instructions .Route .COMPLEX 12/07/22 [History Last Taken Unknown] Allergy/AdvReac Type Severity Reaction Status Date / Time KALEIGH Inhibitors AdvReac Other Verified 12/07/22 10:21 levofloxacin [From Levaquin] AdvReac aching Verified 12/07/22 10:21 legs trouble walking Family History Father Hypertension Heart disease Surgical History H/O coronary artery bypass surgery (08/27/05) History of ankle fusion History of cholecystectomy History of colon surgery History of colonoscopy (2016) History of coronary artery stent placement (05/27/21) History of implantable cardiac defibrillator (ICD) (02/10/17) History of left heart catheterization History of left hip replacement History of right knee joint replacement Hx of cataract surgery Social History household members: spouse Smoking Status: Never smoker alcohol intake: never substance use type: does not use caffeine: Yes Type: coffee Number of servings: 1 ROS ROS Narrative Chronic lower extremity edema. Patient has atrophy of his left lower extremity so it is smaller than his right due to a prior stroke. All review of systems were negative except as mentioned above in the history of present illness and the other review of systems. Vital Signs Vital Signs Vital Signs: 12/07/22 10:22 12/07/22 10:37 12/07/22 10:57 Temperature 36.6 C Temperature Source Temporal Pulse Rate 55 L Respiratory Rate 18 Respiratory Effort Respiratory Depth Respiratory Pattern Blood Pressure 103/59 L Blood Pressure Mean 73 Pulse Ox 81 100 98 Oxygen Delivery Method Room Air Non-Rebreather Nasal Cannula Oxygen Flow Rate (L/min) 15 4 12/07/22 11:24 12/07/22 12:17 12/07/22 11:21 Temperature Temperature Source Pulse Rate Respiratory Rate 18 Respiratory Effort Normal Non-Labored Respiratory Depth Normal Respiratory Pattern Normal Blood Pressure Blood Pressure Mean Pulse Ox 97 Oxygen Delivery Method Room Air Nasal Cannula Oxygen Flow Rate (L/min) 2 12/07/22 12:21 12/07/22 13:51 12/07/22 13:55 Temperature Temperature Source Pulse Rate 50 L Respiratory Rate 11 L Respiratory Effort Respiratory Depth Respiratory Pattern Blood Pressure 134/65 H Blood Pressure Mean 88 Pulse Ox 92 94 85 Oxygen Delivery Method Nasal Cannula Room Air Room Air Oxygen Flow Rate (L/min) 2 12/07/22 13:55 12/07/22 13:57 12/07/22 13:26 Temperature Temperature Source Pulse Rate 54 L Respiratory Rate 12 Respiratory Effort Respiratory Depth Respiratory Pattern Blood Pressure 115/66 Blood Pressure Mean 80 Pulse Ox 90 94 92 Oxygen Delivery Method Nasal Cannula Nasal Cannula Oxygen Flow Rate (L/min) 4 4 12/07/22 14:00 12/07/22 15:05 Temperature 36.6 C Temperature Source Oral Pulse Rate 50 L 52 L Respiratory Rate 17 15 Respiratory Effort Respiratory Depth Respiratory Pattern Blood Pressure 131/67 H 113/71 Blood Pressure Mean 86 85 Pulse Ox 94 95 Oxygen Delivery Method Nasal Cannula Oxygen Flow Rate (L/min) 4 Weight Weight: 80.739 kg Body Mass Index (BMI) 31.5 Physical Exam Const alert and no apparent distress Constitutional Narrative: On oxygen. No respiratory distress. No conversational dyspnea. HEENT normocephalic, head/scalp atraumatic, hearing grossly normal bilaterally and moist oral mucous membranes Eyes Eyes Narrative: No icterus Neck no lymphadenopathy and no JVD Resp normal respiratory effort Resp Narrative: Diminished in the bases bilaterally. Crackles above that. Dullness percussion in the bases. Cardio regular rate, regular rhythm, S1 normal heart sound and S2 normal heart sound Cardio Narrative: 2+ murmur at the apex. GI normal to inspection, nondistended, normoactive bowel sounds, soft to palpation, non-tender and non-distended Extremity Extremity Narrative: Bilateral lower extremity edema. Right greater than left. 2+ edema. Skin Skin Narrative: No rashes or lesions. Neuro moves all extremities Sensorium / Orientation: awake and alert Psych affect normal Results Lab / Micro Data Attestation: I reviewed the patient's lab results. Result Diagrams: 12/07/22 10:30 12/07/22 10:30 Labs: Laboratory Results - last 24 hr 12/07/22 10:30: WBC 6.3, RBC 4.42 L, Hgb 14.1, Hct 46.2, MCV 104.5 H, MCH 31.9, MCHC 30.5 L, RDW Std Deviation 66.2 H, RDW Coeff of Abdirahman 17.2 H, Plt Count 131 L, MPV 11.1, Immature Gran % (Auto) 0.300, Neut % (Auto) 81.8 H, Lymph % (Auto) 7.9 L, [place] % (Auto) 6.9, Eos % (Auto) 2.8, Baso % (Auto) 0.3, Absolute Neuts (auto) 5.2, Absolute Lymphs (auto) 0.50 L, Nucleated RBC % 0, Anisocytosis 1+ 12/07/22 10:30: D-Dimer Quant (PE/DVT) 1.18 H* 12/07/22 10:30: Sodium 144, Potassium 4.1, Chloride 103, Carbon Dioxide 34.0 H, Anion Gap 7, BUN 34 H, Creatinine 1.38 H, Estim Creat Clear Calc 33.79, Est GFR (MDRD) Af Amer 64, Est GFR (MDRD) Non-Af 53 L, BUN/Creatinine Ratio 24.6 H, Glucose 117 H, Calcium 9.0, Troponin I High Sens 36 12/07/22 10:38: PT 26.1 H, INR 2.4 05/29/23 14:57: Urine Color Yellow, Urine Clarity Clear, Urine pH 6.5, Ur Specific [place] 1.010, Urine Protein 15 H, Urine Glucose (UA) Normal, Urine Ketones Negative, Urine Occult Blood 25 H, Urine Nitrite Negative, Urine Bilirubin Negative, Urine Urobilinogen 1 H, Ur Leukocyte Esterase 25 H, Urine RBC 0-5 SEEN, Urine WBC 0-5 SEEN, Ur Squamous Epith Cells 0 SEEN, Urine Bacteria 0 SEEN, Urine Mucus 0 SEEN ABG Data ABG results: ABG 12/07/22 10:51 Specimen Type ART Sample Site R Radial pH 7.39 Bicarbonate Actual 36.3 H Total CO2 38 Base Excess 11 H O2 Saturation 100 H ABG pCO2 59.6 H ABG pO2 214 H [place] Test Positive O2 Delivery Device NRB Liter Flow 15.0 EKG Initial EKG: EKG Rhythm Intrepretation: Ventricular Paced Radiology Impression Chest X-Ray 12/07/22 10:31 IMPRESSION: Bilateral ill-defined opacities may be secondary to some combination of edema, atelectasis and/or pneumonia. Cardiomegaly. Electronically Signed: Caridad Merida MD at 11:17 EDT , Chest CTA 12/07/22 11:20 IMPRESSION: No demonstrated pulmonary embolism or arterial dissection. Stable bilateral pleural effusions. Bilateral lower lobe consolidation. Cardiomegaly. Atherosclerosis. Evidence of prior granulomatous disease. Electronically Signed: Caridad Merida MD at 14:51 EDT , Assessment & Plan Assessment/Plan (1) Pneumonia of both lower lobes: PLAN: Subtle infiltrates increased from the 26. Patient received ceftriaxone and azithromycin in the emergency room. We will continue with these antibiotics. Check sputum culture, Streptococcus and Legionella. Pep therapy Prior to discharge, check an ambulatory pulse ox. Patient will need to be assessed for oxygen needs prior to discharge. Patient does have oxygen which she is only supposed to use at night but has been using it throughout the day as well. (2) Bilateral pleural effusion: PLAN: I suspect transudative due to the patient's underlying heart failure. I would gather that they are likely too small to safely perform thoracentesis so I think the plan would be to diurese with holding his bumetanide and giving him IV furosemide 40 mg twice daily. Patient echocardiogram December 02, 2021 that showed an EF of 20% ?5% with severe pulmonary hypertension with a right ventricular systolic pressure of 70 mmHg. PLAN: Plan Chronic conditions History of VT and V-fib: Status post pacemaker and defibrillator. Longstanding persistent A-fib: Continue with warfarin, digoxin and carvedilol VTE prophylaxis: Not indicated as patient is already anticoagulated. CODE STATUS: Addressed with patient. Patient wished to be full code. Charges/Coding Visit Charges Inpatient E&M: 42294 Init Hosp L3
[2022-12-07] MEDS: Potassium Chloride Oral Tablet 10 MEQ PO (18:00)
[2022-12-07] MEDS: Tamsulosin HCl 0.4 MG Capsule PO (18:00)
[2022-12-07] MEDS: Furosemide 40 MG/4 ML Vial IV (18:02)
[2022-12-07] MEDS: Multivitamin (Healthy Eyes) Capsule 1 CAP PO (22:58)
[2022-12-07] MEDS: Carvedilol 25 MG Tablet PO (22:58)
[2022-12-07] MEDS: clonazePAM 0.5 MG Tablet PO (22:58)
[2022-12-07] MEDS: Aspirin E.C. 81 MG Tablet PO (22:58)
[2022-12-07] MEDS: Atorvastatin Calcium 10 MG Tablet PO (22:58)
[2022-12-08] VITALS (8 sets, daily range): BP systolic 114–131; BP diastolic 51–56; PULSE 50–53; RESP 16–18; TEMP 36.4–37.2; O2SAT 85–96; BMI 31.7
[2022-12-08] MEDS: Acetaminophen 325 MG Tablet 650 MG PO ×2 (00:18→23:38)
[2022-12-08 05:20] LABS: Absolute Lymphocyte Count 0.43 X10^3/uL (0.83-4.51); Absolute Neutrophil Count 6.3 X10^3/uL (2.0-7.7); Basophil# 0.01 X10^3/uL; Basophil% 0.1 % (0-1); Eosinophil# 0.13 X10^3/uL; Eosinophils% 1.7 % (0-5); Hematocrit 43.2 % (40-54); Lymphocyte # 0.43 X10^3/ul (0.83-4.51); Lymphocyte % 5.7 % (19-41); Mean Corp Hgb Conc 30.1 g/dL (32-36); Mean Corpuscular Hgb 31.3 pg (27.0-32.0); Mean Corpuscular Volume 103.8 fL (80-94); Mean Platelet Vol. 10.6 fl (6.2-12.0); Monocyte# 0.63 X10^3/uL; Monocyte% 8.4 % (0-10); NRBC Flagged by Analyzer 0 % (0-5); Neutrophil # 6.27 X10^3/uL (2.7-7.7); POSITIVE DIFFERENTIAL YES; POSITIVE MORPHOLOGY YES; Platelet Count 114 K/mm3 (150-450); RBC Distribution Width CV 17.2 % (11.6-14.6); RBC Distribution Width SD 66.4 fl (35.1-43.9); Red Blood Count 4.16 M/mm3 (4.6-6.2); White Blood Count 7.5 K/mm3 (4.4-11.0)
[2022-12-08 05:27] LABS: Differential Indicated SCAN CRITERIA MET
[2022-12-08 05:41] LABS: International Normalized Ratio 2.5
[2022-12-08] MEDS: clonazePAM 0.5 MG Tablet PO ×3 (05:45→21:00)
[2022-12-08 05:46] LABS: Anion Gap 4 (5-15); BUN 31 mg/dL (7-18); BUN/Creat Ratio 23.8 RATIO (10-20); Calcium,Total 8.6 mg/dL (8.5-10.1); Chloride 104 mmol/L (98-107); EST Glomerular Filtration Rate 56 mL/min (>60); Est Glom Filt Rate - Afr Amer 68 mL/min (>60); Estimated Creatinine Clearance 35.87 ml/min; Glucose 104 mg/dL (74-106); Potassium 3.8 mmol/L (3.5-5.1); Sodium Level 143 mmol/L (136-145)
[2022-12-08 06:02] LABS: Anisocytosis 2+; Differential Comment SCANNED
[2022-12-08 06:03] LABS: Stomatocyte 2+
--- NOTE | 2022-12-08 08:16 | PCM.PN.HOSP ---
Reason for Visit Reason for Visit: Diagnoses Pneumonia, unspecified organism (12/07/22) Pleural effusion, not elsewhere classified (12/07/22) Subjective Subjective Patient is a 82-year-old gentleman who presented with dysuria and was found to be hypoxic on admission admitted to monitored bed as a case of acute hypoxia secondary to combination of pneumonia and CHF Objective Data Objective Data Vital Signs: Vital Signs Temp Pulse Resp BP Pulse Ox O2 Del Method O2 Flow Rate 97.6 F L 52 L 18 129/56 H 93 Nasal Cannula 2 12/08/22 05:50 12/08/22 05:50 12/08/22 05:50 12/08/22 05:50 12/08/22 07:30 12/08/22 07:30 12/08/22 07:30 Oxygen Flow Rate (L/min) 2 Oxygen Delivery Method Nasal Cannula Weight: 81.2 kg Body Mass Index (BMI) 31.7 Intake & Output: Intake and Output for Last 24 Hours 12/06/22 12/07/22 12/08/22 23:59 23:59 23:59 Intake Total 777 / 777 374 / 374 Output Total 350 / 350 1950 / 1950 Balance 427 / 427 -1576 / -1576 Lab / Micro Data Result Diagrams: 12/08/22 04:45 12/08/22 04:45 Labs: Laboratory Results - last 24 hr 12/07/22 10:30: WBC 6.3, RBC 4.42 L, Hgb 14.1, Hct 46.2, MCV 104.5 H, MCH 31.9, MCHC 30.5 L, RDW Std Deviation 66.2 H, RDW Coeff of Abdirahman 17.2 H, Plt Count 131 L, MPV 11.1, Immature Gran % (Auto) 0.300, Neut % (Auto) 81.8 H, Lymph % (Auto) 7.9 L, [place] % (Auto) 6.9, Eos % (Auto) 2.8, Baso % (Auto) 0.3, Absolute Neuts (auto) 5.2, Absolute Lymphs (auto) 0.50 L, Nucleated RBC % 0, Anisocytosis 1+ 12/07/22 10:30: D-Dimer Quant (PE/DVT) 1.18 H* 12/07/22 10:30: Sodium 144, Potassium 4.1, Chloride 103, Carbon Dioxide 34.0 H, Anion Gap 7, BUN 34 H, Creatinine 1.38 H, Estim Creat Clear Calc 33.79, Est GFR (MDRD) Af Amer 64, Est GFR (MDRD) Non-Af 53 L, BUN/Creatinine Ratio 24.6 H, Glucose 117 H, Calcium 9.0, Troponin I High Sens 36 12/07/22 10:38: PT 26.1 H, INR 2.4 12/07/22 14:57: Urine Color Yellow, Urine Clarity Clear, Urine pH 6.5, Ur Specific [place] 1.010, Urine Protein 15 H, Urine Glucose (UA) Normal, Urine Ketones Negative, Urine Occult Blood 25 H, Urine Nitrite Negative, Urine Bilirubin Negative, Urine Urobilinogen 1 H, Ur Leukocyte Esterase 25 H, Urine RBC 0-5 SEEN, Urine WBC 0-5 SEEN, Ur Squamous Epith Cells 0 SEEN, Urine Bacteria 0 SEEN, Urine Mucus 0 SEEN 12/08/22 04:45: WBC 7.5, RBC 4.16 L, Hgb 13.0, Hct 43.2, MCV 103.8 H, MCH 31.3, MCHC 30.1 L, RDW Std Deviation 66.4 H, RDW Coeff of Abdirahman 17.2 H, Plt Count 114 L, MPV 10.6, Immature Gran % (Auto) 0.100, Neut % (Auto) 84.0 H, Lymph % (Auto) 5.7 L, [place] % (Auto) 8.4, Eos % (Auto) 1.7, Baso % (Auto) 0.1, Absolute Neuts (auto) 6.3, Absolute Lymphs (auto) 0.43 L, Nucleated RBC % 0, Differential Comment SCANNED, Anisocytosis 2+, Stomatocytes 2+ 12/08/22 04:45: PT 27.0 H, INR 2.5 12/08/22 04:45: Sodium 143, Potassium 3.8, Chloride 104, Carbon Dioxide 35.0 H, Anion Gap 4 L, BUN 31 H, Creatinine 1.30, Estim Creat Clear Calc 35.87, Est GFR (MDRD) Af Amer 68, Est GFR (MDRD) Non-Af 56 L, BUN/Creatinine Ratio 23.8 H, Glucose 104, Calcium 8.6 Micro: Microbiology 12/07/22 16:30 Sputum, Expectorated/Coughed Gram Stain - Preliminary 12/07/22 14:57 Urine, Clean Catch Legionella Antigen - Final 12/07/22 14:57 Urine, Random Streptococcus pneumoniae Antigen (M - Final ABG Data ABG results: ABG 12/07/22 10:51 Specimen Type ART Sample Site R Radial pH 7.39 Bicarbonate Actual 36.3 H Total CO2 38 Base Excess 11 H O2 Saturation 100 H ABG pCO2 59.6 H ABG pO2 214 H [place] Test Positive O2 Delivery Device NRB Liter Flow 15.0 Radiography Diagnostic Testing: Radiology Impression Chest X-Ray 12/07/22 10:31 IMPRESSION: Bilateral ill-defined opacities may be secondary to some combination of edema, atelectasis and/or pneumonia. Cardiomegaly. Electronically Signed: Caridad Merida MD at 11:17 EDT , Chest CTA 12/07/22 11:20 IMPRESSION: No demonstrated pulmonary embolism or arterial dissection. Stable bilateral pleural effusions. Bilateral lower lobe consolidation. Cardiomegaly. Atherosclerosis. Evidence of prior granulomatous disease. Electronically Signed: Caridad Merida MD at 14:51 EDT , Physical Exam Narrative GENERAL: cooperative HEENT: Atraumatic; normocephalic EYES; Anicteric, Normal Conjunctiva NECK; supple, normal thyroid, RESPIRATORY: Diminished to auscultation CARDIOVASCULAR: Regular S1 S2, GI: soft, normoactive bowel sounds, : No Renal angle tenderness; EXTREMITIES: No edema, no clubbing, MUSCULOSKELETAL: no muscle wasting NEURO: Awake; no lateralizing signs. SKIN: No Rash PSYCH; Flat affect Assessment & Plan Assessment/Plan (1) Pneumonia of both lower lobes: PLAN: Plan Patient is a 82-year-old gentleman who presented with dysuria and was found to be hypoxic on admission admitted to monitored bed as a case of acute hypoxia secondary to combination of pneumonia and CHF 1. Acute hypoxia ? Secondary to combination of pneumonia as well as CHF admitted to monitored bed with treatment of underlying conditions 2. Pneumonia - Suspected to be secondary to streptococcal pneumonia, Blood and sputum cultures sent. Patient placed on Rocephin and Zithromax and placed on oxygen titrated to keep Pulse Ox greater than 90 3. Acute on chronic congestive heart failure with reduced ejection fraction ? Patient managed with fluid restriction strict input and output Daily weight as well as IV diuretics 4. 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 Chronic A-fib ? Rate controlled on carvedilol and digoxin on systemic anticoagulation with warfarin monitoring with daily INR 6. Dyslipidemia -Patient is on statin therapy, continued at home dose 7. Hypertension - Blood pressure controlled, home medications continued with dose adjustment as needed 8 DVT prophylaxis ? Already on Coumadin 9. Dysuria patient urinalysis came back unremarkable Time spent in the patient's overall evaluation,decision-making process, review of diagnostic data, adjustment of management, discussion with other providers, nursing nursing and ancillary staff involved in patient's care documentation,50 Minutes Charges/Coding Visit Charges Inpatient E&M: 71205 [facility] Hosp L3
[2022-12-08] MEDS: Potassium Chloride Oral Tablet 10 MEQ PO ×2 (09:11→17:06)
[2022-12-08] MEDS: Ascorbic Acid 500 MG Tablet PO (09:12)
[2022-12-08] MEDS: Furosemide 40 MG/4 ML Vial IV ×2 (09:13→17:06)
[2022-12-08] MEDS: Multivitamin (Healthy Eyes) Capsule 1 CAP PO ×2 (09:13→20:59)
[2022-12-08] MEDS: Cholecalciferol (VIT D3) 25 MCG TABLET (1,000 UNITS) 50 MCG PO (09:13)
[2022-12-08] MEDS: Losartan Potassium 100 MG Tablet 50 MG PO (09:13)
--- NOTE | 2022-12-08 12:25 | CASEMGMT ---
RN?CM?PRINTING MACHINE MECHANIC?CM?to room to meet with patient for initial transition planning/care coordination?assessment.?RN?CM?introduced self and role at [facility].? Pt voices understanding and consents to?assessment?at this time.? Pt resting in bed in no distress at this time.? and son, Ananda, @ bedside and pt agreeable to them being present during assessment. Pt is A/O at this time and answers all questions appropriately.?? Care providers, pharmacy, and demographics verified/updated at this time. PCP: Dr Beltran Specialists: Dr Casarez-pulmonology, Dr Bradley- oncology, [facility] [place]/Cardiology Preferred Pharmacy: [facility] Insurance: [employer] Prescription Benefit:?yes Living Will/HPOA:?Has both LW and HCPOA, who is his , Monserrat. Pt states sonAnanda, is 1st alternative. Pt and family made aware these are not on file @ [facility] LNOK: , Monserrat. 5 sons. Living Arrangements: Lives w/ in one-story home w/basement and 4 steps to enter. Pt states he is indep w/ADL's and manages his own medications. Pt and share home mgnt tasks. Sons assist w/grocery shopping. Transportation:?Pt states drives self and states no transportation concerns at this time.? drives on occasion. DME: States has the following DME:?cane, pulse ox, and O2 @ 2 l/m thru [employer] that he wears it @ HS and PRN. Pt states he has concentrator only. Pt also has a walker, but does not use it. Pt states no need for further DME at this time.? HHC/SNF: No hx of SNF. Has had HHC in the past. Pt declines need for HHC or OP therapy. Pt and family made aware if he changes his mind while @ [facility] to ask for CM or if it is once he returns home, to f/u with PCP to discuss options. Pt wishes to return home and states has no concerns with going home at time of discharge.? CM?to follow for any increase in home oxygen needs and any further discharge planning/needs.? Pt and family voice no concerns/needs at this time.? Advised them to ask for?CM?if any questions/concerns/needs arise.? They voice understanding. PLAN:??Home. Follow for any increase in O2 needs. PT/OT evals pending. Maricarmen BSN?RN?CM
[2022-12-08] MEDS: Tamsulosin HCl 0.4 MG Capsule PO (17:06)
[2022-12-08] MEDS: Atorvastatin Calcium 10 MG Tablet PO (20:59)
[2022-12-08] MEDS: Aspirin E.C. 81 MG Tablet PO (20:59)
[2022-12-09] VITALS (7 sets, daily range): BP systolic 111–151; BP diastolic 58–68; PULSE 54–64; RESP 16–18; TEMP 36.2–36.7; O2SAT 94–97; BMI 31.4
[2022-12-09] MEDS: clonazePAM 0.5 MG Tablet PO ×3 (05:17→21:22)
[2022-12-09 06:22] LABS: Absolute Lymphocyte Count 0.42 X10^3/uL (0.83-4.51); Absolute Neutrophil Count 5.4 X10^3/uL (2.0-7.7); Basophil# 0.02 X10^3/uL; Basophil% 0.3 % (0-1); Eosinophil# 0.23 X10^3/uL; Eosinophils% 3.5 % (0-5); Hematocrit 43.2 % (40-54); Hemoglobin 12.9 g/dL (13.0-16.5); Lymphocyte # 0.42 X10^3/ul (0.83-4.51); Lymphocyte % 6.4 % (19-41); Mean Corp Hgb Conc 29.9 g/dL (32-36); Mean Corpuscular Hgb 31.3 pg (27.0-32.0); Mean Corpuscular Volume 104.9 fL (80-94); Mean Platelet Vol. 10.7 fl (6.2-12.0); Monocyte# 0.44 X10^3/uL; Monocyte% 6.7 % (0-10); NRBC Flagged by Analyzer 0 % (0-5); Neutrophil # 5.44 X10^3/uL (2.7-7.7); Neutrophil % 82.8 % (47-70); POSITIVE DIFFERENTIAL YES; POSITIVE MORPHOLOGY YES; Platelet Count 114 K/mm3 (150-450); RBC Distribution Width CV 17.2 % (11.6-14.6); RBC Distribution Width SD 66.5 fl (35.1-43.9); Red Blood Count 4.12 M/mm3 (4.6-6.2); White Blood Count 6.6 K/mm3 (4.4-11.0)
[2022-12-09 06:33] LABS: Differential Indicated SCAN CRITERIA MET
[2022-12-09 06:40] LABS: International Normalized Ratio 2.2; Prothrombin Time (Protime)PT. 24.3 SECONDS (11.7-14.9)
[2022-12-09 07:00] LABS: Anion Gap 5 (5-15); BUN 27 mg/dL (7-18); BUN/Creat Ratio 21.4 RATIO (10-20); Calcium,Total 8.7 mg/dL (8.5-10.1); Chloride 105 mmol/L (98-107); Creatinine, Serum 1.26 mg/dL (0.70-1.30); EST Glomerular Filtration Rate 58 mL/min (>60); Est Glom Filt Rate - Afr Amer 71 mL/min (>60); Estimated Creatinine Clearance 37.01 ml/min; Glucose 110 mg/dL (74-106); Phosphorus 3.2 mg/dL (2.5-4.9); Potassium 3.7 mmol/L (3.5-5.1); Sodium Level 147 mmol/L (136-145)
[2022-12-09 07:07] LABS: Anisocytosis 1+
--- NOTE | 2022-12-09 07:52 | PCM.PN.HOSP ---
Reason for Visit Reason for Visit: Diagnoses Pneumonia, unspecified organism (12/07/22) Pleural effusion, not elsewhere classified (12/07/22) Subjective Subjective Patient seen still complains of discomfort in his urethra. His Coumadin was held the day prior after he developed hematuria which appears to have resolved. Objective Data Objective Data Vital Signs: Vital Signs Temp Pulse Resp BP Pulse Ox O2 Del Method O2 Flow Rate 98.1 F 59 L 16 130/58 H 94 Nasal Cannula 2 12/09/22 03:45 12/09/22 03:45 12/09/22 03:45 12/09/22 03:45 12/09/22 03:45 12/09/22 03:55 12/09/22 03:55 Oxygen Flow Rate (L/min) 2 Oxygen Delivery Method Nasal Cannula Weight: 80.5 kg Body Mass Index (BMI) 31.4 Intake & Output: Intake and Output for Last 24 Hours 12/07/22 12/08/22 12/09/22 23:59 23:59 23:59 Intake Total 777 / 777 1148 / 1148 224 / 224 Output Total 350 / 350 4650 / 4650 350 / 350 Balance 427 / 427 -3502 / -3502 -126 / -126 Lab / Micro Data Result Diagrams: 12/09/22 05:57 12/09/22 05:57 Labs: Laboratory Results - last 24 hr 12/09/22 05:57: PT 24.3 H, INR 2.2 12/09/22 05:57: WBC 6.6, RBC 4.12 L, Hgb 12.9 L, Hct 43.2, MCV 104.9 H, MCH 31.3, MCHC 29.9 L, RDW Std Deviation 66.5 H, RDW Coeff of Abdirahman 17.2 H, Plt Count 114 L, MPV 10.7, Immature Gran % (Auto) 0.300, Neut % (Auto) 82.8 H, Lymph % (Auto) 6.4 L, [place] % (Auto) 6.7, Eos % (Auto) 3.5, Baso % (Auto) 0.3, Absolute Neuts (auto) 5.4, Absolute Lymphs (auto) 0.42 L, Nucleated RBC % 0, Anisocytosis 1+ 12/09/22 05:57: Sodium 147 H, Potassium 3.7, Chloride 105, Carbon Dioxide 37.0 H, Anion Gap 5, BUN 27 H, Creatinine 1.26, Estim Creat Clear Calc 37.01, Est GFR (MDRD) Af Amer 71, Est GFR (MDRD) Non-Af 58 L, BUN/Creatinine Ratio 21.4 H, Glucose 110 H, Calcium 8.7, Phosphorus 3.2 Micro: Microbiology 12/07/22 16:30 Sputum, Expectorated/Coughed Gram Stain - Final 12/07/22 14:57 Urine, Clean Catch Legionella Antigen - Final 12/07/22 14:57 Urine, Random Streptococcus pneumoniae Antigen (M - Final Physical Exam Narrative GENERAL: cooperative HEENT: Atraumatic; normocephalic EYES; Anicteric, Normal Conjunctiva NECK; supple, normal thyroid, RESPIRATORY: Diminished to auscultation CARDIOVASCULAR: Regular S1 S2, GI: soft, normoactive bowel sounds, : No Renal angle tenderness; EXTREMITIES: biPedal edema, no clubbing, MUSCULOSKELETAL: no muscle wasting NEURO: Awake; no lateralizing signs. SKIN: No Rash PSYCH; Flat affect Assessment & Plan Assessment/Plan (1) Pneumonia of both lower lobes: PLAN: Plan Patient is a 82-year-old gentleman who presented with dysuria and was found to be hypoxic on admission admitted to monitored bed as a case of acute hypoxia secondary to combination of pneumonia and CHF 1. Acute hypoxia ? Secondary to combination of pneumonia as well as CHF admitted to monitored bed with treatment of underlying conditions 2. Pneumonia - Suspected to be secondary to streptococcal pneumonia, Blood and sputum cultures sent. Patient placed on Rocephin and Zithromax and placed on oxygen titrated to keep Pulse Ox greater than 90 ? 12/09/2022; patient remains on supplemental oxygen. Cultures have so far remain negative to date 3. Acute on chronic congestive heart failure with reduced ejection fraction ? Patient managed with fluid restriction strict input and output Daily weight as well as IV diuretics ? 12/09/2022 did increase patient diuretic dose 4. 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 Chronic A-fib ? Rate controlled on carvedilol and digoxin on systemic anticoagulation with warfarin monitoring with daily INR 6. Dyslipidemia -Patient is on statin therapy, continued at home dose 7. Hypertension - Blood pressure controlled, home medications continued with dose adjustment as needed 8. DVT prophylaxis ? Already on Coumadin 9. Dysuria with hematuria ?Due to the presence of the indwelling Negron catheter as well as patient being on systemic anticoagulation with warfarin. Patient urinalysis was unremarkable for any infection. Consult placed to Dr Arboleda with urology Time spent in the patient's overall evaluation,decision-making process, review of diagnostic data, adjustment of management, discussion with other providers, nursing nursing and ancillary staff involved in patient's care documentation, 35 Minutes Charges/Coding Visit Charges Inpatient E&M: 16792 Subs Hosp L2
[2022-12-09] MEDS: Furosemide 40 MG/4 ML Vial IV ×3 (09:39→21:23)
[2022-12-09] MEDS: Cholecalciferol (VIT D3) 25 MCG TABLET (1,000 UNITS) 50 MCG PO (09:39)
[2022-12-09] MEDS: Multivitamin (Healthy Eyes) Capsule 1 CAP PO ×2 (09:39→21:22)
[2022-12-09] MEDS: Ascorbic Acid 500 MG Tablet PO (09:41)
[2022-12-09] MEDS: Potassium Chloride Oral Tablet 10 MEQ PO ×2 (09:41→16:36)
--- NOTE | 2022-12-09 15:33 | CON.PCM.UR_ITS ---
HPI Consult Data Date of Consult: 12/09/22 HPI Narrative Reason for Consultation: Retention of urine and hematuria HPI Narrative: DARRELL PRIETO, is a 82 M who presented to the emergency room with retention of urine had a Negron catheter placed he is on Coumadin and had some blood in the urine but was admitted for also what appears to be a pneumonia he has history of multiple medical problems. At this point he is at the urine catheter in place and the urine is draining urine that is tinged blood but not too bad it should clear on its own Coumadin has been held temporarily. He was seen in my office about 2 years ago for retention of urine and after medical therapy was initiated he is was able to resume spontaneous voiding but now is developed retention of urine again he is not an ideal surgical candidate with multiple medical problems. He had to go home with a catheter he can follow-up as an outpatient for an evaluation to see if he could undergo a transurethral section of the prostate or prostate surgery to resume normal voiding he will to get clearance from cardiology and pulmonary to proceed. Spoke to the family today regarding the situation and the catheter and he want to go home with a catheter and can call my office to follow-up for an outpatient consultation and further work-up for his retention of urine continue with BPH medications. 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 Atrial fibrillation Back pain Chronic combined systolic and diastolic CHF (congestive heart failure) Colon cancer Essential hypertension History of hiatal hernia History of non-ST elevation myocardial infarction (NSTEMI) (05/27/21) History of pain when walking History of steroid therapy History of stroke Hyperlipidemia Ischemic cardiomyopathy Kidney stone Longstanding persistent atrial fibrillation LV (left ventricular) mural thrombus Non-smoker Nonrheumatic mitral (valve) insufficiency Osteoarthritis Personal history of colon cancer, stage III Personal history of colonic polyps Stroke/cerebrovascular accident Ventricular tachycardia (paroxysmal) Wallenberg syndrome Wears glasses Home Medications clonazepam 0.5 mg tablet (Klonopin) 0.5 mg PO TID anxiety 08/11/13 [History Last Taken 12/07/22] ascorbic acid (vitamin C) 500 mg tablet 1,000 mg PO DAILY@0800 supplement 07/11/15 [History Last Taken 12/07/22] aspirin 81 mg tablet,delayed release 81 mg PO QHS heart health 07/11/15 [History Last Taken 12/06/22] vit C 250 mg-vit E 90 mg-zinc 40 mg-copper 1 [id number] capsule (PreserVision AREDS-2) 1 tab PO BID eye vitamin 02/24/21 [History Last Taken 12/07/22] cholecalciferol (vitamin D3) 50 mcg (2,000 unit) capsule 50 mcg PO DAILY vitamin 04/02/22 [History Last Taken 12/07/22] carvedilol 25 mg tablet 25 mg PO BID blood pressure #180 tabs 08/19/22 [Rx Last Taken 12/07/22] digoxin 125 mcg (0.125 mg) tablet 125 mcg PO DAILY blood pressure #90 tabs 08/19/22 [Rx Last Taken 12/07/22] atorvastatin 10 mg tablet 10 mg PO QHS #30 tabs 09/08/22 [Rx Last Taken 12/06/22] losartan 100 mg tablet 50 mg PO DAILY [place] [facility] closed, no power. 11/06/22 [History Last Taken 12/07/22] bumetanide 1 mg tablet 1 mg PO BID diuretic 12/07/22 [History Last Taken 12/07/22] potassium chloride 10 mEq tablet,extended release(part/cryst) 10 meq PO BID supplement 12/07/22 [History Last Taken 12/07/22] warfarin 2 mg tablet See Rx Instructions .Route .COMPLEX blood thinner 12/07/22 [History Last Taken 12/06/22] Allergy/AdvReac Type Severity Reaction Status Date / Time KALEIGH Inhibitors AdvReac Other Verified 12/07/22 10:21 levofloxacin [From Levaquin] AdvReac aching Verified 12/07/22 10:21 legs trouble walking Family History Father Hypertension Heart disease Surgical History H/O coronary artery bypass surgery (08/27/05) History of ankle fusion History of cholecystectomy History of colon surgery History of colonoscopy (2016) History of coronary artery stent placement (05/27/21) History of implantable cardiac defibrillator (ICD) (02/10/17) History of left heart catheterization History of left hip replacement History of right knee joint replacement Hx of cataract surgery Social History household members: spouse Smoking Status: Never smoker alcohol intake: never substance use type: does not use caffeine: Yes Type: coffee Number of servings: 1 Lab / Micro Data Result Diagrams: 12/09/22 05:57 12/09/22 05:57 Labs: Laboratory Results - last 24 hr 12/09/22 05:57: PT 24.3 H, INR 2.2 12/09/22 05:57: WBC 6.6, RBC 4.12 L, Hgb 12.9 L, Hct 43.2, MCV 104.9 H, MCH 31.3, MCHC 29.9 L, RDW Std Deviation 66.5 H, RDW Coeff of Abdirahman 17.2 H, Plt Count 114 L, MPV 10.7, Immature Gran % (Auto) 0.300, Neut % (Auto) 82.8 H, Lymph % (Auto) 6.4 L, [place] % (Auto) 6.7, Eos % (Auto) 3.5, Baso % (Auto) 0.3, Absolute Neuts (auto) 5.4, Absolute Lymphs (auto) 0.42 L, Nucleated RBC % 0, Anisocytosis 1+ 12/09/22 05:57: Sodium 147 H, Potassium 3.7, Chloride 105, Carbon Dioxide 37.0 H , Anion Gap 5, BUN 27 H, Creatinine 1.26, Estim Creat Clear Calc 37.01, Est GFR (MDRD) Af Amer 71, Est GFR (MDRD) Non-Af 58 L, BUN/Creatinine Ratio 21.4 H, Glucose 110 H, Calcium 8.7, Phosphorus 3.2 Micro: Microbiology 12/07/22 16:30 Sputum, Expectorated/Coughed Gram Stain - Final 12/07/22 16:30 Sputum, Expectorated/Coughed Respiratory Culture - Final Mixed normal respiratory darius. No Streptococcus pneumoniae, beta-hemolytic Streptococcus or Staphylococcus aureus isolated.
[2022-12-09] MEDS: Tamsulosin HCl 0.4 MG Capsule PO (16:36)
[2022-12-09] MEDS: oxyCODONE 5 MG Tablet PO (17:52)
[2022-12-09] MEDS: Atorvastatin Calcium 10 MG Tablet PO (21:22)
[2022-12-09] MEDS: Aspirin E.C. 81 MG Tablet PO (21:22)
[2022-12-09] MEDS: Acetaminophen 325 MG Tablet 650 MG PO (21:22)
[2022-12-09] MEDS: Carvedilol 25 MG Tablet PO (21:22)
[2022-12-09] MEDS: 0.9% Saline Lock 10 ML Syringe IV ×2 (21:22→23:45)
[2022-12-10] VITALS (8 sets, daily range): BP systolic 104–152; BP diastolic 47–60; PULSE 51–66; RESP 16–18; TEMP 36.4–36.8; O2SAT 84–97; BMI 31.1
[2022-12-10] MEDS: oxyCODONE 5 MG Tablet PO (00:51)
[2022-12-10] MEDS: clonazePAM 0.5 MG Tablet PO ×3 (05:43→21:50)
[2022-12-10] MEDS: 0.9% Saline Lock 10 ML Syringe IV ×6 (05:44→21:50)
[2022-12-10 06:24] LABS: Absolute Lymphocyte Count 0.44 X10^3/uL (0.83-4.51); Basophil# 0.01 X10^3/uL; Basophil% 0.1 % (0-1); Eosinophil# 0.27 X10^3/uL; Eosinophils% 3.2 % (0-5); Hematocrit 42.5 % (40-54); Hemoglobin 12.9 g/dL (13.0-16.5); Lymphocyte # 0.44 X10^3/ul (0.83-4.51); Lymphocyte % 5.2 % (19-41); Mean Corp Hgb Conc 30.4 g/dL (32-36); Mean Corpuscular Hgb 31.7 pg (27.0-32.0); Mean Corpuscular Volume 104.4 fL (80-94); Mean Platelet Vol. 10.5 fl (6.2-12.0); Monocyte# 0.64 X10^3/uL; Monocyte% 7.6 % (0-10); NRBC Flagged by Analyzer 0 % (0-5); Neutrophil # 7.04 X10^3/uL (2.7-7.7); Neutrophil % 83.7 % (47-70); POSITIVE DIFFERENTIAL YES; Platelet Count 119 K/mm3 (150-450); RBC Distribution Width CV 16.4 % (11.6-14.6); RBC Distribution Width SD 64.1 fl (35.1-43.9); Red Blood Count 4.07 M/mm3 (4.6-6.2); White Blood Count 8.4 K/mm3 (4.4-11.0)
[2022-12-10 06:27] LABS: Differential Indicated SCAN CRITERIA MET
[2022-12-10] MEDS: Furosemide 40 MG/4 ML Vial IV ×3 (06:34→21:50)
[2022-12-10 06:40] LABS: Prothrombin Time (Protime)PT. 23.2 SECONDS (11.7-14.9)
[2022-12-10 06:42] LABS: Anion Gap 5 (5-15); BUN 23 mg/dL (7-18); BUN/Creat Ratio 18.7 RATIO (10-20); Calcium,Total 8.3 mg/dL (8.5-10.1); Chloride 103 mmol/L (98-107); Creatinine, Serum 1.23 mg/dL (0.70-1.30); EST Glomerular Filtration Rate 60 mL/min (>60); Est Glom Filt Rate - Afr Amer 73 mL/min (>60); Estimated Creatinine Clearance 37.91 ml/min; Glucose 113 mg/dL (74-106); Potassium 3.6 mmol/L (3.5-5.1); Sodium Level 147 mmol/L (136-145)
[2022-12-10 06:53] LABS: Anisocytosis 1+; Macrocytosis 1+; Platelet Estimate SLT DEC (ADEQ)
[2022-12-10] MEDS: Ascorbic Acid 500 MG Tablet PO (09:16)
[2022-12-10] MEDS: Cholecalciferol (VIT D3) 25 MCG TABLET (1,000 UNITS) 50 MCG PO (09:17)
[2022-12-10] MEDS: Losartan Potassium 100 MG Tablet 50 MG PO (09:17)
[2022-12-10] MEDS: Multivitamin (Healthy Eyes) Capsule 1 CAP PO ×2 (09:17→21:50)
[2022-12-10] MEDS: Potassium Chloride Oral Tablet 10 MEQ PO ×2 (09:17→17:26)
[2022-12-10] MEDS: Finasteride 5 MG Tablet PO (09:17)
--- NOTE | 2022-12-10 11:59 | PCM.PN.HOSP ---
Reason for Visit Reason for Visit: Diagnoses Pneumonia, unspecified organism (12/07/22) Pleural effusion, not elsewhere classified (12/07/22) Subjective Subjective Patient seen still has active hematuria. Patient is on Coumadin which is currently being held. Patient was seen in consultation by Dr Arboleda with urology the day prior he is noted recommendations reviewed Objective Data Objective Data Vital Signs: Vital Signs Temp Pulse Resp BP Pulse Ox O2 Del Method O2 Flow Rate 97.8 F 51 L 18 114/56 L 97 Nasal Cannula 2 12/10/22 09:00 12/10/22 09:15 12/10/22 09:00 12/10/22 09:00 12/10/22 09:00 12/10/22 09:00 12/10/22 09:00 Oxygen Flow Rate (L/min) 2 Oxygen Delivery Method Nasal Cannula Weight: 79.7 kg Body Mass Index (BMI) 31.1 Intake & Output: Intake and Output for Last 24 Hours 12/08/22 12/09/22 12/10/22 23:59 23:59 23:59 Intake Total 1148 / 1148 1977 224 / 224 Output Total 4650 / 4650 1850 / 1850 1200 / 1200 Balance -3502 / -3502 128 / 128 -976 / -976 Lab / Micro Data Result Diagrams: 12/10/22 05:30 12/10/22 05:30 Labs: Laboratory Results - last 24 hr 12/10/22 05:30: PT 23.2 H, INR 2.0 12/10/22 05:30: WBC 8.4, RBC 4.07 L, Hgb 12.9 L, Hct 42.5, MCV 104.4 H, MCH 31.7, MCHC 30.4 L, RDW Std Deviation 64.1 H, RDW Coeff of Abdirahman 16.4 H, Plt Count 119 L, MPV 10.5, Immature Gran % (Auto) 0.200, Neut % (Auto) 83.7 H, Lymph % (Auto) 5.2 L, [place] % (Auto) 7.6, Eos % (Auto) 3.2, Baso % (Auto) 0.1, Absolute Neuts (auto) 7.0, Absolute Lymphs (auto) 0.44 L, Nucleated RBC % 0, Platelet Estimate SLT DEC, Anisocytosis 1+, Macrocytosis 1+ 12/10/22 05:30: Sodium 147 H, Potassium 3.6, Chloride 103, Carbon Dioxide 39.0 H, Anion Gap 5, BUN 23 H, Creatinine 1.23, Estim Creat Clear Calc 37.91, Est GFR (MDRD) Af Amer 73, Est GFR (MDRD) Non-Af 60, BUN/Creatinine Ratio 18.7, Glucose 113 H, Calcium 8.3 L Micro: Microbiology 12/07/22 16:30 Sputum, Expectorated/Coughed Gram Stain - Final 12/07/22 16:30 Sputum, Expectorated/Coughed Respiratory Culture - Final Mixed normal respiratory darius. No Streptococcus pneumoniae, beta-hemolytic Streptococcus or Staphylococcus aureus isolated. 12/07/22 14:57 Urine, Clean Catch Legionella Antigen - Final 12/07/22 14:57 Urine, Random Streptococcus pneumoniae Antigen (M - Final Physical Exam Narrative GENERAL: cooperative HEENT: Atraumatic; normocephalic EYES; Anicteric, Normal Conjunctiva NECK; supple, normal thyroid, RESPIRATORY: Diminished to auscultation CARDIOVASCULAR: Regular S1 S2, GI: soft, normoactive bowel sounds, : No Renal angle tenderness; EXTREMITIES: biPedal edema, no clubbing, MUSCULOSKELETAL: no muscle wasting NEURO: Awake; no lateralizing signs. SKIN: No Rash PSYCH; Flat affect Assessment & Plan Assessment/Plan (1) Pneumonia of both lower lobes: PLAN: Plan Patient is a 82-year-old gentleman who presented with dysuria and was found to be hypoxic on admission admitted to monitored bed as a case of acute hypoxia secondary to combination of pneumonia and CHF 1. Acute hypoxia ? Secondary to combination of pneumonia as well as CHF admitted to monitored bed with treatment of underlying conditions 2. Pneumonia - Suspected to be secondary to streptococcal pneumonia, Blood and sputum cultures sent. Patient placed on Rocephin and Zithromax and placed on oxygen titrated to keep Pulse Ox greater than 90 ? 12/09/2022; patient remains on supplemental oxygen. Cultures have so far remain negative to date 3. Acute on chronic congestive heart failure with reduced ejection fraction ? Patient managed with fluid restriction strict input and output Daily weight as well as IV diuretics ? 12/09/2022 did increase patient diuretic dose 4. 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 Chronic A-fib ? Rate controlled on carvedilol and digoxin on systemic anticoagulation with warfarin monitoring with daily INR ? 12/10/2022 Coumadin being held in view of patient's hematuria 6. Dyslipidemia -Patient is on statin therapy, continued at home dose 7. Hypertension - Blood pressure controlled, home medications continued with dose adjustment as needed 8. DVT prophylaxis ? Already on Coumadin ? 12/10/2022 Coumadin held the day prior as a result of patient's hematuria 9. Dysuria with hematuria ?Due to the presence of the indwelling Negron catheter as well as patient being on systemic anticoagulation with warfarin. Patient urinalysis was unremarkable for any infection. Consult placed to Dr Arboleda with urology ? 12/10/2022 notes and recommendations from Dr Arboleda reviewed. Patient still has active hematuria. Coumadin on hold Time spent in the patient's overall evaluation,decision-making process, review of diagnostic data, adjustment of management, discussion with other providers, nursing nursing and ancillary staff involved in patient's care documentation, 35 Minutes Charges/Coding Visit Charges Inpatient E&M: 58609 Subs Hosp L2
[2022-12-10] MEDS: Tamsulosin HCl 0.4 MG Capsule PO (17:26)
[2022-12-10] MEDS: Atorvastatin Calcium 10 MG Tablet PO (21:50)
[2022-12-10] MEDS: Aspirin E.C. 81 MG Tablet PO (21:50)
[2022-12-10] MEDS: Carvedilol 25 MG Tablet PO (21:50)
[2022-12-10] MEDS: Acetaminophen 325 MG Tablet 650 MG PO (21:56)
--- NOTE | 2022-12-10 23:08 | NURSING ---
pt family member in [facility], wanting to see if pulmonology can be consulted since pt had a recent appointment. This RN made charge auditor aware, and was also notified.Will pass this to dayshift staff.
[2022-12-11] VITALS (8 sets, daily range): BP systolic 113–137; BP diastolic 55–64; PULSE 54–66; RESP 16–18; TEMP 36.4–36.6; O2SAT 94–98; BMI 31.1
[2022-12-11] MEDS: Furosemide 40 MG/4 ML Vial IV ×3 (06:01→21:25)
[2022-12-11] MEDS: 0.9% Saline Lock 10 ML Syringe IV ×2 (06:01→21:26)
[2022-12-11 06:03] LABS: Absolute Lymphocyte Count 0.43 X10^3/uL (0.83-4.51); Basophil# 0.02 X10^3/uL; Basophil% 0.3 % (0-1); Eosinophil# 0.34 X10^3/uL; Eosinophils% 5.4 % (0-5); Hematocrit 43.5 % (40-54); Hemoglobin 13.4 g/dL (13.0-16.5); Lymphocyte # 0.43 X10^3/ul (0.83-4.51); Lymphocyte % 6.8 % (19-41); Mean Corp Hgb Conc 30.8 g/dL (32-36); Mean Corpuscular Volume 103.8 fL (80-94); Mean Platelet Vol. 10.3 fl (6.2-12.0); Monocyte# 0.46 X10^3/uL; Monocyte% 7.3 % (0-10); NRBC Flagged by Analyzer 0 % (0-5); Neutrophil # 5.03 X10^3/uL (2.7-7.7); Neutrophil % 79.9 % (47-70); POSITIVE DIFFERENTIAL YES; Platelet Count 111 K/mm3 (150-450); RBC Distribution Width CV 16.3 % (11.6-14.6); RBC Distribution Width SD 62.8 fl (35.1-43.9); Red Blood Count 4.19 M/mm3 (4.6-6.2); White Blood Count 6.3 K/mm3 (4.4-11.0)
[2022-12-11] MEDS: clonazePAM 0.5 MG Tablet PO ×3 (06:05→21:31)
[2022-12-11 06:19] LABS: Differential Indicated SCAN CRITERIA MET
[2022-12-11 06:29] LABS: International Normalized Ratio 1.8; Prothrombin Time (Protime)PT. 20.7 SECONDS (11.7-14.9)
[2022-12-11 06:34] LABS: Anisocytosis 1+; Macrocytosis 2+; Platelet Estimate SLT DEC (ADEQ)
[2022-12-11 06:40] LABS: Anion Gap 5 (5-15); BUN 26 mg/dL (7-18); BUN/Creat Ratio 21.5 RATIO (10-20); Calcium,Total 8.7 mg/dL (8.5-10.1); Chloride 102 mmol/L (98-107); Creatinine, Serum 1.21 mg/dL (0.70-1.30); EST Glomerular Filtration Rate 61 mL/min (>60); Est Glom Filt Rate - Afr Amer 74 mL/min (>60); Estimated Creatinine Clearance 38.53 ml/min; Glucose 103 mg/dL (74-106); Potassium 3.6 mmol/L (3.5-5.1); Sodium Level 145 mmol/L (136-145)
--- NOTE | 2022-12-11 07:42 | PCM.PN.HOSP ---
Reason for Visit Reason for Visit: Diagnoses Pneumonia, unspecified organism (12/07/22) Pleural effusion, not elsewhere classified (12/07/22) Subjective Subjective Patient seen continues to experience hematuria. Coumadin still on hold. Patient was seen by Dr Arboleda 2 days prior recommended for patient to be discharged home with a Negron catheter. Did explain to patient that he is not ready for discharge since he is still having active hematuria Objective Data Objective Data Vital Signs: Vital Signs Temp Pulse Resp BP Pulse Ox O2 Del Method O2 Flow Rate 97.5 F L 55 L 18 120/55 L 94 Nasal Cannula 2 12/11/22 03:31 12/11/22 05:56 12/11/22 03:31 12/11/22 05:56 12/11/22 03:31 12/11/22 03:31 12/11/22 03:31 Oxygen Flow Rate (L/min) 2 Oxygen Delivery Method Nasal Cannula Weight: 79.8 kg Body Mass Index (BMI) 31.1 Intake & Output: Intake and Output for Last 24 Hours 12/09/22 12/10/22 12/11/22 23:59 23:59 23:59 Intake Total 1977 / 1977 1178 / 1178 224 / 224 Output Total 1850 / 1850 2925 / 2925 550 / 550 Balance 128 / 128 -1747 / -1747 -326 / -326 Lab / Micro Data Result Diagrams: 12/11/22 05:35 12/11/22 05:35 Labs: Laboratory Results - last 24 hr 12/11/22 05:35: WBC 6.3, RBC 4.19 L, Hgb 13.4, Hct 43.5, MCV 103.8 H, MCH 32.0, MCHC 30.8 L, RDW Std Deviation 62.8 H, RDW Coeff of Abdirahman 16.3 H, Plt Count 111 L, MPV 10.3, Immature Gran % (Auto) 0.300, Neut % (Auto) 79.9 H, Lymph % (Auto) 6.8 L, [place] % (Auto) 7.3, Eos % (Auto) 5.4 H, Baso % (Auto) 0.3, Absolute Neuts (auto) 5.0, Absolute Lymphs (auto) 0.43 L, Nucleated RBC % 0, Platelet Estimate SLT DEC, Anisocytosis 1+, Macrocytosis 2+ 12/11/22 05:35: PT 20.7 H, INR 1.8 12/11/22 05:35: Sodium 145, Potassium 3.6, Chloride 102, Carbon Dioxide 38.0 H, Anion Gap 5, BUN 26 H, Creatinine 1.21, Estim Creat Clear Calc 38.53, Est GFR (MDRD) Af Amer 74, Est GFR (MDRD) Non-Af 61, BUN/Creatinine Ratio 21.5 H, Glucose 103, Calcium 8.7 Micro: Microbiology 12/07/22 16:30 Sputum, Expectorated/Coughed Gram Stain - Final 12/07/22 16:30 Sputum, Expectorated/Coughed Respiratory Culture - Final Mixed normal respiratory darius. No Streptococcus pneumoniae, beta-hemolytic Streptococcus or Staphylococcus aureus isolated. 12/07/22 14:57 Urine, Clean Catch Legionella Antigen - Final 12/07/22 14:57 Urine, Random Streptococcus pneumoniae Antigen (M - Final Physical Exam Narrative GENERAL: cooperative HEENT: Atraumatic; normocephalic EYES; Anicteric, Normal Conjunctiva NECK; supple, normal thyroid, RESPIRATORY: Diminished to auscultation CARDIOVASCULAR: Regular S1 S2, GI: soft, normoactive bowel sounds, : No Renal angle tenderness; EXTREMITIES: biPedal edema, no clubbing, MUSCULOSKELETAL: no muscle wasting NEURO: Awake; no lateralizing signs. SKIN: No Rash PSYCH; Flat affect Assessment & Plan Assessment/Plan (1) Pneumonia of both lower lobes: PLAN: Plan Patient is a 82-year-old gentleman who presented with dysuria and was found to be hypoxic on admission admitted to monitored bed as a case of acute hypoxia secondary to combination of pneumonia and CHF 1. Acute hypoxia ? Secondary to combination of pneumonia as well as CHF admitted to monitored bed with treatment of underlying conditions ? 12/11/2022 patient remains on supplemental oxygen 2. Pneumonia - Suspected to be secondary to streptococcal pneumonia, Blood and sputum cultures sent. Patient placed on Rocephin and Zithromax and placed on oxygen titrated to keep Pulse Ox greater than 90 ? 12/09/2022; patient remains on supplemental oxygen. Cultures have so far remain negative to date 3. Acute on chronic congestive heart failure with reduced ejection fraction ? Patient managed with fluid restriction strict input and output Daily weight as well as IV diuretics ? 12/09/2022 did increase patient diuretic dose 4. 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 Chronic A-fib ? Rate controlled on carvedilol and digoxin on systemic anticoagulation with warfarin monitoring with daily INR ? 12/10/2022 Coumadin being held in view of patient's hematuria 6. Dyslipidemia -Patient is on statin therapy, continued at home dose 7. Hypertension - Blood pressure controlled, home medications continued with dose adjustment as needed 8. DVT prophylaxis ? Already on Coumadin ? 12/10/2022 Coumadin held the day prior as a result of patient's hematuria 9. Dysuria with hematuria ?Due to the presence of the indwelling Negron catheter as well as patient being on systemic anticoagulation with warfarin. Patient urinalysis was unremarkable for any infection. Consult placed to Dr Arboleda with urology ? 12/10/2022 notes and recommendations from Dr Arboleda reviewed. Patient still has active hematuria. Coumadin on hold ? 12/11/2022 hematuria still persist Time spent in the patient's overall evaluation,decision-making process, review of diagnostic data, adjustment of management, discussion with other providers, nursing nursing and ancillary staff involved in patient's care documentation, 35 Minutes Charges/Coding Visit Charges Inpatient E&M: 45672 Subs Hosp L2
[2022-12-11] MEDS: Multivitamin (Healthy Eyes) Capsule 1 CAP PO ×2 (09:32→21:24)
[2022-12-11] MEDS: Ascorbic Acid 500 MG Tablet PO (09:32)
[2022-12-11] MEDS: Losartan Potassium 100 MG Tablet 50 MG PO (09:32)
[2022-12-11] MEDS: Cholecalciferol (VIT D3) 25 MCG TABLET (1,000 UNITS) 50 MCG PO (09:32)
[2022-12-11] MEDS: Potassium Chloride Oral Tablet 10 MEQ PO ×2 (09:32→16:02)
[2022-12-11] MEDS: Finasteride 5 MG Tablet PO (09:33)
[2022-12-11] MEDS: Tamsulosin HCl 0.4 MG Capsule PO (17:10)
[2022-12-11] MEDS: Cefdinir 300 MG Capsule PO (21:24)
[2022-12-11] MEDS: Aspirin E.C. 81 MG Tablet PO (21:24)
[2022-12-11] MEDS: Atorvastatin Calcium 10 MG Tablet PO (21:24)
[2022-12-12] MEDS: Acetaminophen 325 MG Tablet 650 MG PO (02:26)
[2022-12-12 03:00] VITALS: BP 129/56; PULSE 59; RESP 16; TEMP 36.6; O2SAT 95
[2022-12-12 04:10] VITALS: BP 131/54; PULSE 58; RESP 16; TEMP 36.6; O2SAT 98
[2022-12-12 04:15] VITALS: O2SAT 97
[2022-12-12 05:20] VITALS: BMI 30.9
--- NOTE | 2022-12-12 05:22 | NURSING ---
Irrigated patient's walsh, draining well, patient tolerated well.
--- NOTE | 2022-12-12 05:56 | CON.PCM.CC_ITS ---
Assessment & Plan Assessment/Plan (1) SIMPSON (dyspnea on exertion): PLAN: Plan RECOMMENDATIONS: 1. Supplemental oxygen, if needed, to maintain saturations at or above 90%. 2. Encourage incentive spirometer use and mobilize patient as tolerated. 3. Outpatient PFTs and 6-minute walk test, as ordered. 4. Follow-up in the pulmonary medicine clinic after PFTs and walk test are completed. 5. No additional inpatient pulmonary work-up is indicated at this time. We will sign off. Please call with any additional questions. IMPRESSIONS: 1. Shortness of breath and hemoptysis The patient was initially referred to Dr. Casarez on an outpatient basis in mid November 2022 for the evaluation of hemoptysis. Patient reported that he last expe rienced an episode of hemoptysis 2 to 3 weeks ago. The patient currently denies any resting shortness of breath. He is already scheduled to undergo PFTs and an outpatient 6-minute walk test in the upcoming weeks. Given his stability from a respiratory perspective, I do not see any indication for additional inpatient pulmonary work-up. He should complete his outpatient testing and follow-up with Dr. Casarez as scheduled. 2. Heart failure with reduced ejection fraction/atrial fibrillation Continue diuretics as tolerated by hemodynamics and renal function. 3. Dysuria and hematuria Defer management to hospitalist and urology. Coumadin remains on hold. This note was generated with [employer] dictation software. It may contain incorrect words, spelling, and punctuation that were not noted in checking the note before signing. HPI Consult Data Date of Consult: 12/12/22 HPI Narrative Reason for Consultation: Dyspnea HPI Narrative: The patient is an 82-year-old male, with a history as outlined below, who was initially admitted to the hospital on December 07 after presenting with dysuria. The patient was also noted to be saturating 79% on room air when presenting to the hospital. The patient is currently under the care of Dr. Javier Casarez of pulmonary medicine. The patient was last seen by the aforementioned provider on November 25, 2022 after having experienced hemoptysis [address] A chest [address], PFTs and walking oximetry study were ordered at that time. The patient is on systemic anticoagulation with Coumadin at his baseline. The patient's hypoxemia was felt to be a consequence of CHF and pneumonia. He was placed on antibiotics and has been receiving intermittent diuretics. The patient is currently afebrile, hemodynamically stable and maintaining a ppropriate oxygen saturations on room air. Sputum culture dated December 07 has not demonstrated any growth. The patient remains on scheduled IV Lasix. CTA chest completed on December 07 demonstrated no evidence for pulmonary embolism, but did show small bilateral pleural effusions with lower lobe consolidation. This morning, the patient denied any resting shortness of breath. He stated that he last experienced an episode of hemoptysis 2 to 3 weeks ago. [facility] Medical History Anxiety Arthritis Atherosclerosis of coronary artery bypass graft of [place] heart with angina pe ctoris Atherosclerotic heart disease of [place] coronary artery without angina pectoris Atrial fibrillation Back pain Chronic combined systolic and diastolic CHF (congestive heart failure) Colon cancer Essential hypertension History of hiatal hernia History of non-ST elevation myocardial infarction (NSTEMI) (05/27/21) History of pain when walking History of steroid therapy History of stroke Hyperlipidemia Ischemic cardiomyopathy Kidney stone Longstanding persistent atrial fibrillation LV (left ventricular) mural thrombus Non-smoker Nonrheumatic mitral (valve) insufficiency Osteoarthritis Personal history of colon cancer, stage III Personal history of colonic polyps Stroke/cerebrovascular accident Ventricular tachycardia (paroxysmal) Wallenberg syndrome Wears glasses Home Medications clonazepam 0.5 mg tablet (Klonopin) 0.5 mg PO TID anxiety 08/11/13 [History Last Taken 12/07/22] ascorbic acid (vitamin C) 500 mg tablet 1,000 mg PO DAILY@0800 supplement 07/11/15 [History Last Taken 12/07/22] aspirin 81 mg tablet,delayed release 81 mg PO [facility] heart [facility] 07/11/15 [History Last Taken 12/06/22] vit C 250 mg-vit E 90 mg-zinc 40 mg-copper 1 [id number]-ddzmox capsule (PreserVision AREDS-2) 1 tab PO BID eye vitamin 02/24/21 [History Last Taken 12/07/22] cholecalciferol (vitamin D3) 50 mcg (2,000 unit) capsule 50 mcg PO DAILY vitamin 04/02/22 [History Last Taken 12/07/22] carvedilol 25 mg tablet 25 mg PO BID blood pressure #180 tabs 08/19/22 [Rx Last Taken 12/07/22] digoxin 125 mcg (0.125 mg) tablet 125 mcg PO DAILY blood pressure #90 tabs 08/19/22 [Rx Last Taken 12/07/22] atorvastatin 10 mg tablet 10 mg PO QHS #30 tabs 09/08/22 [Rx Last Taken 12/06/22] losartan 100 mg tablet 50 mg PO DAILY [place] [facility] closed, no power. 11/06/22 [History Last Taken 12/07/22] bumetanide 1 mg tablet 1 mg PO BID diuretic 12/07/22 [History Last Taken 12/07/22] potassium chloride 10 mEq tablet,extended release(part/cryst) 10 meq PO BID supplement 12/07/22 [History Last Taken 12/07/22] warfarin 2 mg tablet See Rx Instructions .Route .COMPLEX blood thinner 12/07/22 [History Last Taken 12/06/22] finasteride 5 mg tablet (Proscar) 5 mg PO DAILY #90 tabs 12/09/22 [Rx Last Taken Unknown] Allergy/AdvReac Type Severity Reaction Status Date / Time KALEIGH Inhibitors AdvReac Other Verified 12/07/22 10:21 levofloxacin [From Levaquin] AdvReac aching Verified 12/07/22 10:21 legs trouble walking Family History Father Hypertension Heart disease Surgical History H/O coronary artery bypass surgery (08/27/05) History of ankle fusion History of cholecystectomy History of colon surgery History of colonoscopy (2016) History of coronary artery stent placement (05/27/21) History of implantable cardiac defibrillator (ICD) (02/10/17) History of left heart catheterization History of left hip replacement History of right knee joint replacement Hx of cataract surgery Social History household members: spouse Smoking Status: Never smoker alcohol intake: never substance use type: does not use caffeine: Yes Type: coffee Number of servings: 1 ROS ROS Narrative 10 systems were reviewed with pertinent positives as noted in the HPI above. Physical Exam Const alert and no apparent distress General Appearance: cooperative HEENT normocephalic, head/scalp atraumatic and moist oral mucous membranes Eyes EOMs intact bilaterally and conjunctivae normal Neck supple General: trachea midline Chest inspection of chest normal Resp normal respiratory effort Auscultation: Negative for rales, rhonchi or wheezes Cardio regular rate and regular rhythm Heart Sounds: murmur GI normal to inspection, nondistended, normoactive bowel sounds Extremity no clubbing, cyanosis or edema Skin no rashes or lesions noted Neuro CN's II-XII intact bilaterally, moves all extremities and no focal motor defici ts Psych cooperative and affect normal Lab / Micro Data Result Diagrams: 12/11/22 05:35 12/11/22 05:35 Labs: Laboratory Results - last 24 hr 12/11/22 05:35: WBC 6.3, RBC 4.19 L, Hgb 13.4, Hct 43.5, MCV 103.8 H, MCH 32.0, MCHC 30.8 L, RDW Std Deviation 62.8 H, RDW Coeff of Abdirahman 16.3 H, Plt Count 111 L, MPV 10.3, Immature Gran % (Auto) 0.300, Neut % (Auto) 79.9 H, Lymph % (Auto) 6.8 L, [place] % (Auto) 7.3, Eos % (Auto) 5.4 H, Baso % (Auto) 0.3, Absolute Neuts (auto) 5.0, Absolute Lymphs (auto) 0.43 L, Nucleated RBC % 0, Platelet Estimate SLT DEC, Anisocytosis 1+, Macrocytosis 2+ 12/11/22 05:35: PT 20.7 H, INR 1.8 12/11/22 05:35: Sodium 145, Potassium 3.6, Chloride 102, Carbon Dioxide 38.0 H, Anion Gap 5, BUN 26 H, Creatinine 1.21, Estim Creat Clear Calc 38.53, Est GFR (MDRD) Af Amer 74, Est GFR (MDRD) Non-Af 61, BUN/Creatinine Ratio 21.5 H, Glucose 103, Calcium 8.7 Charges/Coding Visit Charges Inpatient E&M: 22820 Init Hosp L2
[2022-12-12] MEDS: Furosemide 40 MG/4 ML Vial IV (06:56)
[2022-12-12] MEDS: 0.9% Saline Lock 10 ML Syringe IV (07:02)
[2022-12-12] MEDS: clonazePAM 0.5 MG Tablet PO (07:05)
--- NOTE | 2022-12-12 07:48 | PCM.PN.HOSP ---
Reason for Visit Reason for Visit: Diagnoses Pneumonia, unspecified organism (12/07/22) Pleural effusion, not elsewhere classified (12/07/22) Other forms of dyspnea (12/07/22) Subjective Subjective Patient seen hematuria finally appears to be clearing. Plan is for patient to be assessed for home oxygen needs prior to patient being discharged Objective Data Objective Data Vital Signs: Vital Signs Temp Pulse Resp BP Pulse Ox O2 Del Method O2 Flow Rate 97.8 F 58 L 16 131/54 H 97 Room Air 2 12/12/22 04:10 12/12/22 04:10 12/12/22 04:10 12/12/22 04:10 12/12/22 04:15 12/12/22 04:15 12/11/22 19:44 Oxygen Flow Rate (L/min) 2 Oxygen Delivery Method Room Air Weight: 79.3 kg Body Mass Index (BMI) 30.9 Intake & Output: Intake and Output for Last 24 Hours 12/10/22 12/11/22 12/12/22 23:59 23:59 23:59 Intake Total 1178 / 1178 1346 / 1346 0 / 0 Output Total 2925 / 2925 2570 / 2570 50 / 50 Balance -1747 / -1747 -1224 / -1224 -50 / -50 Lab / Micro Data Result Diagrams: 12/12/22 08:28 12/12/22 08:28 Micro: Microbiology 12/07/22 16:30 Sputum, Expectorated/Coughed Gram Stain - Final 12/07/22 16:30 Sputum, Expectorated/Coughed Respiratory Culture - Final Mixed normal respiratory darius. No Streptococcus pneumoniae, beta-hemolytic Streptococcus or Staphylococcus aureus isolated. 12/07/22 14:57 Urine, Clean Catch Legionella Antigen - Final 12/07/22 14:57 Urine, Random Streptococcus pneumoniae Antigen (M - Final Physical Exam Narrative GENERAL: cooperative HEENT: Atraumatic; normocephalic EYES; Anicteric, Normal Conjunctiva NECK; supple, normal thyroid, RESPIRATORY: Diminished to auscultation CARDIOVASCULAR: Regular S1 S2, GI: soft, normoactive bowel sounds, : No Renal angle tenderness; EXTREMITIES: biPedal edema, no clubbing, MUSCULOSKELETAL: no muscle wasting NEURO: Awake; no lateralizing signs. SKIN: No Rash PSYCH; Flat affect Assessment & Plan Assessment/Plan (1) Pneumonia of both lower lobes: PLAN: Plan Patient is a 82-year-old gentleman who presented with dysuria and was found to be hypoxic on admission admitted to monitored bed as a case of acute hypoxia secondary to combination of pneumonia and CHF 1. Acute hypoxia ? Secondary to combination of pneumonia as well as CHF admitted to monitored bed with treatment of underlying conditions ? 12/11/2022 patient remains on supplemental oxygen 2. Pneumonia - Suspected to be secondary to streptococcal pneumonia, Blood and sputum cultures sent. Patient placed on Rocephin and Zithromax and placed on oxygen titrated to keep Pulse Ox greater than 90 ? 12/09/2022; patient remains on supplemental oxygen. Cultures have so far remain negative to date 3. Acute on chronic congestive heart failure with reduced ejection fraction ? Patient managed with fluid restriction strict input and output Daily weight as well as IV diuretics ? 12/09/2022 did increase patient diuretic dose 4. 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 Chronic A-fib ? Rate controlled on carvedilol and digoxin on systemic anticoagulation with warfarin monitoring with daily INR ? 12/10/2022 Coumadin being held in view of patient's hematuria 6. Dyslipidemia -Patient is on statin therapy, continued at home dose 7. Hypertension - Blood pressure controlled, home medications continued with dose adjustment as needed 8. DVT prophylaxis ? Already on Coumadin ? 12/10/2022 Coumadin held the day prior as a result of patient's hematuria 9. Dysuria with hematuria ?Due to the presence of the indwelling Negron catheter as well as patient being on systemic anticoagulation with warfarin. Patient urinalysis was unremarkable for any infection. Consult placed to Dr Arboleda with urology ? 12/10/2022 notes and recommendations from Dr Arboleda reviewed. Patient still has active hematuria. Coumadin on hold ? 12/11/2022 hematuria still persist ? 12/12/2022 patient hematuria resolved patient will be discharged home with Negron catheter with resumption of Coumadin Time spent in the patient's overall evaluation,decision-making process, review of diagnostic data, adjustment of management, discussion with other providers, nursing nursing and ancillary staff involved in patient's care documentation, 35 Minutes Charges/Coding Visit Charges Inpatient E&M: 79867 [facility] Hosp L2
[2022-12-12 08:55] LABS: Hematocrit 41.3 % (40-54); Hemoglobin 12.5 g/dL (13.0-16.5); Mean Corp Hgb Conc 30.3 g/dL (32-36); Mean Corpuscular Hgb 31.4 pg (27.0-32.0); Mean Corpuscular Volume 103.8 fL (80-94); Mean Platelet Vol. 10.4 fl (6.2-12.0); Platelet Count 117 K/mm3 (150-450); RBC Distribution Width SD 61.5 fl (35.1-43.9); Red Blood Count 3.98 M/mm3 (4.6-6.2); White Blood Count 6.7 K/mm3 (4.4-11.0)
[2022-12-12 09:08] LABS: International Normalized Ratio 1.4; Prothrombin Time (Protime)PT. 17.4 SECONDS (11.7-14.9)
[2022-12-12 09:19] LABS: AST(SGOT) 23 U/L (15-37); Alanine Aminotransfer ALT/SGPT 18 U/L (16-61); Alkaline Phosphatase 94 U/L (45-117); Anion Gap 3 (5-15); BUN 29 mg/dL (7-18); BUN/Creat Ratio 26.1 RATIO (10-20); Calcium,Total 8.6 mg/dL (8.5-10.1); Chloride 101 mmol/L (98-107); Creatinine, Serum 1.11 mg/dL (0.70-1.30); EST Glomerular Filtration Rate 67 mL/min (>60); Est Glom Filt Rate - Afr Amer 82 mL/min (>60); Estimated Creatinine Clearance 42.01 ml/min; Glucose 97 mg/dL (74-106); Magnesium 2.5 mg/dL (1.6-2.6); Phosphorus 2.6 mg/dL (2.5-4.9); Potassium 3.4 mmol/L (3.5-5.1); Sodium Level 145 mmol/L (136-145)
[2022-12-12 09:30] VITALS: BP 114/51; PULSE 55; RESP 16; TEMP 36.3; O2SAT 96
[2022-12-12] MEDS: Ascorbic Acid 500 MG Tablet PO (09:35)
[2022-12-12] MEDS: Losartan Potassium 100 MG Tablet 50 MG PO (09:35)
[2022-12-12] MEDS: Potassium Chloride Oral Tablet 10 MEQ PO (09:35)
[2022-12-12] MEDS: Cefdinir 300 MG Capsule PO (09:36)
[2022-12-12] MEDS: Cholecalciferol (VIT D3) 25 MCG TABLET (1,000 UNITS) 50 MCG PO (09:36)
[2022-12-12] MEDS: Finasteride 5 MG Tablet PO (09:36)
[2022-12-12] MEDS: Multivitamin (Healthy Eyes) Capsule 1 CAP PO (09:36)
[2022-12-12 10:00] VITALS: O2SAT 84; O2SAT 90; O2SAT 94
--- NOTE | 2022-12-12 10:03 | NURSING ---
This RN irrigated pts walsh, draining well.
--- NOTE | 2022-12-12 11:12 | DS.PCM_ITS ---
Providers Date of Admission: 12/07/22 Date of Discharge: 12/12/22 Primary Care Physician: Dr. Handy Beltran, DO Consultations 12/09/22 12:37 Consult: Urology Routine Consulting Provider: Clemente Arboleda Reason for Consult: Hematuria EMERGENT Consult: No Notified: Yes Date Notified: 12/09/22 Time Notified: 12:57 Method of Notification: paged 12/11/22 13:29 Consult: Nurse Practitioner Home Assessments / Pulmonary Medicine Routine Consulting Provider: Pulmonary Medicine deya [place] Reason for Consult: dyspnea EMERGENT Consult: No Notified: Yes Date Notified: 12/11/22 Time Notified: 13:29 Method of Notification: Text Reason For Visit: BILATERAL PNEUMONIA, RESP FAILURE W/ HYPOXIA Diagnosis Discharge Diagnosis (1) Pneumonia of both lower lobes: Status: Acute Code(s): J18.9 - Pneumonia, unspecified organism Plan Patient is a 82-year-old gentleman who presented with dysuria and was found to be hypoxic on admission admitted to monitored bed as a case of acute hypoxia secondary to combination of pneumonia and CHF 1. Acute hypoxia ? Secondary to combination of pneumonia as well as CHF admitted to monitored bed with treatment of underlying conditions ? 12/11/2022 patient remains on supplemental oxygen ? 01/08 2023; consult was placed to pulmonary medicine per per patient and family request. Patient was seen in consultation by Dr. Garcia's notes and recommendations reviewed ? Patient was assessed for home oxygen which he did qualify he will need po rtability since he is active both at home as well as in the community 2. Pneumonia - Suspected to be secondary to streptococcal pneumonia, Blood and sputum cultures sent. Patient placed on Rocephin and Zithromax and placed on oxygen titrated to keep Pulse Ox greater than 90 ? 12/09/2022; patient remains on supplemental oxygen. Cultures have so far remain negative to date 3. Acute on chronic congestive heart failure with reduced ejection fraction ? Patient managed with fluid restriction strict input and output Daily weight as well as IV diuretics. 2D echo from 11/10/2021 demonstrated ejection fraction of 20% ? 12/09/2022 did increase patient diuretic dose 4. 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 Chronic A-fib ? Rate controlled on carvedilol and digoxin on systemic anticoagulation with warfarin monitoring with daily INR ? 12/10/2022 Coumadin being held in view of patient's hematuria 6. Dyslipidemia -Patient is on statin therapy, continued at home dose 7. Hypertension - Blood pressure controlled, home medications continued with dose adjustment as needed 8. DVT prophylaxis ? Already on Coumadin ? 12/10/2022 Coumadin held the day prior as a result of patient's hematuria 9. Dysuria with hematuria ?Due to the presence of the indwelling Negron catheter as well as patient being on systemic anticoagulation with warfarin. Patient urinalysis was unremarkable for any infection. Consult placed to Dr Arboleda with urology ? 12/10/2022 notes and recommendations from Dr Arboleda reviewed. Patient still has active hematuria. Coumadin on hold ? 12/11/2022 hematuria still persist ? 12/12/2022 patient hematuria resolved patient will be discharged home with Negron catheter with resumption of Coumadin Time spent in the patient's overall evaluation,decision-making process, review of diagnostic data, adjustment of management, discussion with other providers, nursing nursing and ancillary staff involved in patient's care documentation, 35 Minutes Medications at Discharge Home Medications clonazepam 0.5 mg tablet (Klonopin) 0.5 mg PO TID anxiety 08/11/13 ascorbic acid (vitamin C) 500 mg tablet 1,000 mg PO DAILY@0800 supplement 07/11/15 aspirin 81 mg tablet,delayed release [address] [facility] 07/11/15 vit C 250 mg-vit E 90 mg-zinc 40 mg-copper 1 [id number] capsule (PreserVision AREDS-2) 1 tab PO BID eye vitamin 02/24/21 cholecalciferol (vitamin D3) 50 mcg (2,000 unit) capsule 50 mcg PO DAILY vitamin 04/02/22 carvedilol 25 mg tablet 25 mg PO BID blood pressure #180 tabs 08/19/22 digoxin 125 mcg (0.125 mg) tablet 125 mcg PO DAILY blood pressure #90 tabs 08/19/22 atorvastatin 10 mg tablet 10 mg PO QHS #30 tabs 09/08/22 losartan 100 mg tablet 50 mg PO DAILY [place] [facility] closed, no power. 11/06/22 bumetanide 1 mg tablet 1 mg PO BID diuretic 12/07/22 warfarin 2 mg tablet See Rx Instructions .Route .COMPLEX blood thinner 12/07/22 finasteride 5 mg tablet (Proscar) 5 mg PO DAILY #90 tabs 12/09/22 cefdinir 300 mg capsule 300 mg PO BID #10 caps 12/12/22 potassium chloride 10 mEq tablet,extended release(part/cryst) 20 meq PO BID supplement #120 tabs 12/12/22 Hospital Course Summary of Care Provided Minutes Spent on Discharge: 35 Physical Exam Narrative GENERAL: cooperative HEENT: Atraumatic; normocephalic EYES; Anicteric, Normal Conjunctiva NECK; supple, normal thyroid, RESPIRATORY: Diminished to auscultation CARDIOVASCULAR: Regular S1 S2, GI: soft, normoactive bowel sounds, : No Renal angle tenderness; EXTREMITIES: biPedal edema, no clubbing, MUSCULOSKELETAL: no muscle wasting NEURO: Awake; no lateralizing signs. SKIN: No Rash PSYCH; Flat affect Weight / BMI Weight Weight: 79.3 kg Body Mass Index (BMI) 30.9 ABG / Lab / Microbiology Data Result Diagrams: 12/12/22 08:28 12/12/22 08:28 Laboratory: Laboratory Results - last 24 hr 12/12/22 08:28: WBC 6.7, RBC 3.98 L, Hgb 12.5 L, Hct 41.3, MCV 103.8 H, MCH 31.4, MCHC 30.3 L, RDW Std Deviation 61.5 H, RDW Coeff of Abdirahman 16.0 H, Plt Count 117 L, MPV 10.4 12/12/22 08:28: PT 17.4 H, INR 1.4 12/12/22 08:28: Sodium 145, Potassium 3.4 L, Chloride 101, Carbon Dioxide 41.0 H , Anion Gap 3 L, BUN 29 H, Creatinine 1.11, Estim Creat Clear Calc 42.01, Est GFR (MDRD) Af Amer 82, Est GFR (MDRD) Non-Af 67, BUN/Creatinine Ratio 26.1 H, Glucose 97, Calcium 8.6, Phosphorus 2.6, Magnesium 2.5, Total Bilirubin 0.90, AST 23, ALT 18, Alkaline Phosphatase 94, Total Protein 6.0 L, Albumin 3.0 L, Globulin 3.0, Albumin/Globulin Ratio 1.0 Microbiology: Microbiology 12/07/22 16:30 Sputum, Expectorated/Coughed Gram Stain - Final 12/07/22 16:30 Sputum, Expectorated/Coughed Respiratory Culture - Final Mixed normal respiratory darius. No Streptococcus pneumoniae, beta-hemolytic Streptococcus or Staphylococcus aureus isolated. 12/07/22 14:57 Urine, Clean Catch Legionella Antigen - Final 12/07/22 14:57 Urine, Random Streptococcus pneumoniae Antigen (M - Final D/C Instructions Discharge Diet: 6 Cup Fluid Restriction and 2000 mg Sodium Diet Meaningful Use Info Meaningful Use Diagnoses (Choose all that apply): CHF CHF KALEIGH/ARB ordered at discharge?: Yes Documented LVEF (%): 20 Discharge Plan Admission Admit Date/Time: 12/07/22 15:46 Attending Provider: Angelito Bloom Primary Care Provider: Handy Beltran Consulting Providers: Fercho Tristan ; Clemente Arboleda ; Javier Casarez ; Man Garcia ; Jeff Thompson ; Hernan Fang ; Tiffany Saez [employer] Discharge Orders/Prescriptions Prescriptions: New finasteride [Proscar] 5 mg tablet 5 mg PO DAILY Qty: 90 0RF cefdinir 300 mg Capsule 300 mg PO BID Qty: 10 0RF Continued cholecalciferol (vitamin D3) 50 mcg (2,000 unit) capsule 50 mcg PO DAILY losartan 100 mg tablet 50 mg PO DAILY clonazepam [Klonopin] 0.5 MG tablet 0.5 mg PO TID Label Comments: ANXIETY aspirin 81 MG tablet 81 mg PO QHS Label Comments: HEART ascorbic acid (vitamin C) 500 MG tablet 1,000 mg PO DAILY@0800 Label Comments: SUPPLEMENT PreserVision AREDS-2 250-90-40-1 mg Capsule 1 tab PO BID warfarin 2 mg tablet See Rx Instructions .ROUTE .COMPLEX Label Comments: TAKE 2MG TAB BY MOUTH X3 DAYS OF THE WEEK AND THEN TAKE A 3MG TAB 4 DAYS OF T HE WEEK OR DIRECTED Rx Instructions: 3 mg orally wednesday, wednesday, and wednesday 2 mg orally wednesday, wednesday, wednesday bumetanide 1 mg tablet 1 mg PO BID Label Comments: TAKE 1 TABLET BY MOUTH TWICE A DAY digoxin 125 mcg (0.125 mg) tablet 125 mcg PO DAILY Qty: 90 3RF carvedilol 25 mg tablet 25 mg PO BID Qty: 180 3RF atorvastatin 10 mg tablet 10 mg PO QHS Qty: 30 12RF Hold Instructions: Mhyalgias Changed potassium chloride 10 mEq tablet,ER particles/crystals 20 meq PO BID Qty: 120 0RF Referrals / Follow Up: Javier Casarez MD [Med Staff - Active Staff] - Handy Beltran DO [Primary Care Provider] - In 1 Week Clemente Arboleda MD [Med Staff - Active Staff] - Within 1 Week Disposition Disposition (needs filled in before D/C Order can be placed): Home, Self Care Charges/Coding Visit Charges Inpatient E&M: 86497 Disch Hosp >30min
[2022-12-12] MEDS: Potassium Chloride Oral Tablet 20 MEQ 40 MEQ PO (11:37)
--- NOTE | 2022-12-12 13:19 | CASEMGMT ---
RN CM Follow-up: This RN CM met with pt face to face in room with and son Scot at bedside. Pt alert, sitting up in chair. Discussed home going needs including continuous home O2, home health for skilled care, or [facility] for nonskilled care. Questions answered and education provided on process for receiving portable O2 tanks. Pt states he has additional tubing available at home to facilitate use of his concentrator in the home. States he has a walker. Discussed skilled and CCN program, Pt and family reluctant to accept at this time but state they will review lists and follow-up with PCP Dr. Beltran. While compiling information, pt's son approached this RN CM and stated they would like to have skilled home healthcare started. List of HH providers including quality and resource use data and consistent with pt's geographic area and insurance network printed from [employer] guide was provided. Pt's son requested [facility] as first choice. Referral sent to [facility] via [employer] and voicemail left for Jinny, intake liaison at [facility]. Will follow-up on December 14 for acceptance. Plan: Home with continuous O2 at 2l/min from [facility] [facility] and Home health referral pending acceptance. Dell Andino RN CM
[2022-12-12] MEDS: Tamsulosin HCl 0.4 MG Capsule PO (15:18)
--- NOTE | 2022-12-14 09:17 | CASEMGMT ---
SONU MORENO Follow-up: Voicemail message received from Jinny, Intake Liaison from [facility] stating pt has been accepted with SOC on Wednesday, 12/15. This SONU CM phoned pt and pt's son Abdirashid answered. Abdirashid states Jinny had called pt and relayed acceptance and SOC date with specific time to be conveyed later this afternoon or early tomorrow morning. Pt's son Abdirashid states that pt has been doing well since returning home however he has been weak. Pt using walker to ambulate. Pt has been using O2 without difficulty. Abdirashid enquired about portable concentrator, educated Abdirashid on need to qualify and recommended he discuss with MAHIN the necessary steps for that process. Abdirashid expressed understanding. Abdirashid expressed concern that pt's has dementia which makes it challenging for her to be caregiver of pt. Pt's sons assisting as much as possible but additional assistance requested including [facility]LY options. Encouraged Abdirashid to discuss this need with HH RN JOSH during visit. Options including MENT[facility] HEALTH ORDERLY from [facility] during skilled HH or hiring a private duty MENTAL HEALTH ORDERLY were discussed. Abdirashid expressed understanding and requested this information be forwarded to Jinny. Information conveyed to Jinny via [employer]. Pt's son Abdirashid denies any additional needs at this time. Dell Andino RN CM
== END 2022-12-12 16:02 | disposition home health service (06) | DRG 193 ==
LOC: ED 14:59 → PCU 15:25
PROVIDERS: Emergency Provider Emergency Medicine; PCP Student in an Organized Health Care Education/Training Program; Visit Provider Internal Medicine
DX: J15.4 Pneumonia due to other streptococci (principal); I50.23 Acute on chronic systolic (congestive) heart failure; I48.20 Chronic atrial fibrillation, unspecified; I27.20 Pulmonary hypertension, unspecified; I11.0 Hypertensive heart disease with heart failure; I25.10 Atherosclerotic heart disease of native coronary artery without angina pectoris; E78.5 Hyperlipidemia, unspecified; I25.5 Ischemic cardiomyopathy; Z95.0 Presence of cardiac pacemaker; Z79.01 Long term (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 of 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; Z79.82 Long term (current) use of aspirin; Z95.5 Presence of coronary angioplasty implant and graft; R09.02 Hypoxemia; R30.0 Dysuria; R31.9 Hematuria, unspecified
CPT/HCPCS: 36415; 36600; 71045; 71260; 71275; 80048; 80053; 81001; 82803; 83735; 84100; 84484; 85025; 85027; 85379; 85610; 87070; 87205; 87449; 93005; 94668; 97161; 97166; 97530; 97535; 99285; J7050; Q9967; A4216; J0295; J0696; J1940

== ENCOUNTER → 2023-02-16 | Outpatient (CLI) | payer MEDICARE, SELFPAY ==
--- NOTE | 2023-02-17 11:19 | PFT ---
INTRODUCTION: The patient is a 82-year-old male who presents for pulmonary function studies secondary to a diagnosis of hemoptysis. Respiratory therapy reported good patient effort. Bronchodilators were used during testing. INTERPRETATION: Forced expiration spirometry demonstrates no evidence of a large airways obstructive ventilatory defect. There was no significant response to aerosolized bronchodilators. Spirograms are of good quality and plateau gradually indicating slow emptying of the lungs. Body plethysmography was performed and revealed a decreased TLC to 4.46 L, 78% of predicted, indicative of a mild restrictive ventilatory impairment. Diffusing capacity by single breath CO was reduced to 42% of predicted. 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
== END | disposition home or self-care (01) ==
LOC: PSN 10:29
PROVIDERS: PCP Student in an Organized Health Care Education/Training Program; Referring Provider Internal Medicine Critical Care Medicine; Visit Provider Internal Medicine Critical Care Medicine
DX: R04.2 Hemoptysis (principal)
CPT/HCPCS: 94060; 94726; 94729

== ENCOUNTER → 2023-02-23 | Outpatient (CLI) | payer MEDICARE, SELFPAY ==
[2023-02-23 11:15] VITALS: PULSE 62; PULSE 64; PULSE 65; PULSE 67; PULSE 68; PULSE 70; PULSE 72; PULSE 93; O2SAT 92; O2SAT 93; O2SAT 94; O2SAT 95; O2SAT 96
--- NOTE | 2023-02-23 11:59 | CPS ---
PT HAD TO REST SEVERAL TIMES DUE TO LEG PAIN. MILD SOB.
--- NOTE | 2023-02-24 08:24 | PCM.PSN.6M ---
PSN 6 Minute Walk Test 6 Minute Walk Test 6 Minute Walk Test: 6 Minute Walk Test PSN:6-Minute Walk Test Start: 02/23/23 11:51 Freq: Status: Active Protocol: [id number].6MINW Document 02/23/23 11:15 EW (Rec: 02/23/23 11:59 EW [id number]) 6 Minute Walk Test Date Performed 02/23/23 Time Performed 11:15 Height 5 ft 3 in Weight: 157 lb Weight in Pounds 157.[address]: Javier Casarez Assistive device used: None Pre-test Oxygen Delivery Method Room Air Pulse Ox 95 Pulse Rate (60-100) 93 Dyspnea Pasquale Scale (0-10) 0 Exertion Pasquale Scale (6-20) 9 1st minute Oxygen Delivery Method Room Air Pulse Ox 95 Pulse Rate (60-100) 62 2nd minute Oxygen Delivery Method Room Air Pulse Ox 94 Pulse Rate (60-100) 67 Number of Rests Taken 1 3rd minute Oxygen Delivery Method Room Air Pulse Ox 93 Pulse Rate (60-100) 64 4th minute Oxygen Delivery Method Room Air Pulse Ox 92 Pulse Rate (60-100) 70 Number of Rests Taken 1 5th minute Oxygen Delivery Method Room Air Pulse Ox 96 Pulse Rate (60-100) 68 6th minute Oxygen Delivery Method Room Air Pulse Ox 96 Pulse Rate (60-100) 72 Post-test Oxygen Delivery Method Room Air Pulse Ox 93 Pulse Rate (60-100) 65 Dyspnea Pasquale Scale (0-10) 2 Exertion Pasquale Scale (6-20) 14 Full Laps Walked 11 Partial Lap, Number of Tiles Walked 0 Total Distance Walked (ft) 649 02/23/23 11:59 Cardiopulmonary Services by Raquel Ortiz PT HAD TO REST SEVERAL TIMES DUE TO LEG PAIN. MILD SOB. Initialized on 02/23/23 11:59 - END OF NOTE Interpretation Interpretation: The patient ambulated 649 feet over the course of 6 minutes beginning on room air without assistive devices. Pretesting oxygen saturation was noted to be 95% on room air. With ambulation, the chelo oxygen saturation was 92%. There was no significant exertional oxygen desaturation. Recommendations Recommendations: There is no indication for the use of supplemental oxygen at this time.
== END | disposition home or self-care (01) ==
PROVIDERS: PCP Student in an Organized Health Care Education/Training Program; Referring Provider Internal Medicine Critical Care Medicine; Visit Provider Internal Medicine Critical Care Medicine
DX: R04.2 Hemoptysis (principal)
CPT/HCPCS: 94618

== ENCOUNTER → 2023-09-07 | Outpatient (CLI) | payer MEDICARE, SELFPAY ==
[2023-09-07 14:14] LABS: Absolute Lymphocyte Count 0.71 X10^3/uL (0.83-4.51); Absolute Neutrophil Count 6.3 X10^3/uL (2.0-7.7); Basophil# 0.03 X10^3/uL; Basophil% 0.4 % (0-1); Eosinophil# 0.31 X10^3/uL; Eosinophils% 3.8 % (0-5); Hematocrit 38.8 % (40-54); Hemoglobin 12.9 g/dL (13.0-16.5); Lymphocyte # 0.71 X10^3/ul (0.83-4.51); Lymphocyte % 8.8 % (19-41); Mean Corp Hgb Conc 33.2 g/dL (32-36); Mean Corpuscular Hgb 32.6 pg (27.0-32.0); Mean Platelet Vol. 10.6 fl (6.2-12.0); Monocyte# 0.62 X10^3/uL; Monocyte% 7.7 % (0-10); NRBC Flagged by Analyzer 0 % (0-5); Neutrophil # 6.34 X10^3/uL (2.7-7.7); Neutrophil % 78.7 % (47-70); Platelet Count 162 K/mm3 (150-450); RBC Distribution Width CV 14.5 % (11.6-14.6); RBC Distribution Width SD 52.1 fl (35.1-43.9); Red Blood Count 3.96 M/mm3 (4.6-6.2); White Blood Count 8.1 K/mm3 (4.4-11.0)
[2023-09-07 14:45] LABS: ALB/GLOB Ratio 1.1 RATIO (0.9-2.4); AST(SGOT) 19 U/L (15-37); Alanine Aminotransfer ALT/SGPT 21 U/L (16-61); Albumin, Serum 3.6 g/dL (3.2-5.0); Alkaline Phosphatase 88 U/L (45-117); Anion Gap 5 (5-15); BUN 25 mg/dL (7-18); BUN/Creat Ratio 21.2 RATIO (10-20); Calcium,Total 9.2 mg/dL (8.5-10.1); Chloride 101 mmol/L (98-107); Creatinine, Serum 1.18 mg/dL (0.70-1.30); EST Glomerular Filtration Rate 63 mL/min (>60); Est Glom Filt Rate - Afr Amer 76 mL/min (>60); Globulin 3.3 g/dL (2.2-4.2); Glucose 69 mg/dL (74-106); Potassium 4.1 mmol/L (3.5-5.1); Protein, Total 6.9 g/dL (6.4-8.2); Sodium Level 138 mmol/L (136-145)
== END | disposition home or self-care (01) ==
LOC: LAB 13:51
PROVIDERS: PCP Student in an Organized Health Care Education/Training Program; Referring Provider Physician Assistant Medical; Visit Provider Physician Assistant Medical
DX: R09.02 Hypoxemia (principal); I50.42 Chronic combined systolic (congestive) and diastolic (congestive) heart failure; I49.01 Ventricular fibrillation; I48.11 Longstanding persistent atrial fibrillation; I25.709 Atherosclerosis of coronary artery bypass graft(s), unspecified, with unspecified angina pectoris; Z86.79 Personal history of other diseases of the circulatory system; R06.09 Other forms of dyspnea; I25.10 Atherosclerotic heart disease of native coronary artery without angina pectoris; Z95.1 Presence of aortocoronary bypass graft; Z95.5 Presence of coronary angioplasty implant and graft
CPT/HCPCS: 36415; 80053; 84443; 85025

== ENCOUNTER → 2023-11-15 | Outpatient (CLI) | payer MEDICARE, SELFPAY ==
[2023-11-15 12:45] LABS: Absolute Lymphocyte Count 0.53 X10^3/uL (0.83-4.51); Absolute Neutrophil Count 4.9 X10^3/uL (2.0-7.7); Basophil# 0.01 X10^3/uL; Basophil% 0.2 % (0-1); Eosinophil# 0.22 X10^3/uL; Eosinophils% 3.6 % (0-5); Hematocrit 39.1 % (40-54); Lymphocyte # 0.53 X10^3/ul (0.83-4.51); Lymphocyte % 8.6 % (19-41); Mean Corp Hgb Conc 30.7 g/dL (32-36); Mean Corpuscular Hgb 31.5 pg (27.0-32.0); Mean Corpuscular Volume 102.6 fL (80-94); Mean Platelet Vol. 11.3 fl (6.2-12.0); Monocyte# 0.52 X10^3/uL; Monocyte% 8.4 % (0-10); NRBC Flagged by Analyzer 0 % (0-5); Neutrophil # 4.87 X10^3/uL (2.7-7.7); Neutrophil % 78.9 % (47-70); POSITIVE DIFFERENTIAL YES; Platelet Count 153 K/mm3 (150-450); RBC Distribution Width CV 14.9 % (11.6-14.6); RBC Distribution Width SD 56.3 fl (35.1-43.9); Red Blood Count 3.81 M/mm3 (4.6-6.2); White Blood Count 6.2 K/mm3 (4.4-11.0)
[2023-11-15 13:07] LABS: BNP,B-Type NATRIURETIC PEPTIDE 1492.6 pg/mL (0-100)
[2023-11-15 13:08] LABS: AST(SGOT) 18 U/L (15-37); Alanine Aminotransfer ALT/SGPT 22 U/L (16-61); Albumin, Serum 3.1 g/dL (3.2-5.0); Alkaline Phosphatase 91 U/L (45-117); Anion Gap 6 (5-15); BUN 17 mg/dL (7-18); BUN/Creat Ratio 16.5 RATIO (10-20); Calcium,Total 9.1 mg/dL (8.5-10.1); Chloride 98 mmol/L (98-107); Cholesterol 88 mg/dL (200); Creatinine, Serum 1.03 mg/dL (0.70-1.30); EST Glomerular Filtration Rate 73 mL/min (>60); Est Glom Filt Rate - Afr Amer 89 mL/min (>60); Globulin 3.1 g/dL (2.2-4.2); Glucose 131 mg/dL (74-106); High Density Lipoprotein 40 mg/dL; Protein, Total 6.2 g/dL (6.4-8.2); Sodium Level 138 mmol/L (136-145); Triglycerides 79 mg/dL; Very Low Density Lipoprotein 16 mg/dL (5-40)
== END | disposition home or self-care (01) ==
LOC: LAB 11:48
PROVIDERS: PCP Student in an Organized Health Care Education/Training Program; Referring Provider Nurse Practitioner Family; Visit Provider Nurse Practitioner Family
DX: E78.00 Pure hypercholesterolemia, unspecified (principal); I48.11 Longstanding persistent atrial fibrillation; R06.09 Other forms of dyspnea; Z86.79 Personal history of other diseases of the circulatory system; I25.5 Ischemic cardiomyopathy; I10 Essential (primary) hypertension
CPT/HCPCS: 36415; 80053; 80061; 83880; 85025

== ENCOUNTER → 2023-11-23 | Outpatient (CLI) | payer MEDICARE, SELFPAY ==
--- NOTE | 2023-11-23 12:23 | RAD_ITS ---
INDICATION: CHF and also Hemoptysis EXAMINATION/TECHNIQUE: X-RAY - XR Chest 2 Views COMPARISON: No relevant prior comparison study available FINDINGS: LINES/DEVICES: Left-sided dual-chamber cardiac pacer device in place. LUNGS: Hypoventilatory changes. Mild right basilar infiltrate/atelectasis. Small right pleural effusion. MEDIASTINUM AND CARDIOVASCULAR STRUCTURES: Status post median sternotomy and CABG. Mild enlargement of the cardiac silhouette. BONES AND SOFT TISSUES: Degenerative changes of the thoracic spine. RAD/Chest PA and Lateral IMPRESSION: Mild right basilar infiltrate/atelectasis. Electronically Signed: Kevon Lopez MD at 12:47 EDT ,
[2023-11-23 13:06] LABS: International Normalized Ratio 3.1; Prothrombin Time (Protime)PT. 31.4 SECONDS (11.7-14.9)
[2023-11-23 13:46] LABS: Anion Gap 6 (5-15); BUN 23 mg/dL (7-18); BUN/Creat Ratio 20.4 RATIO (10-20); Calcium,Total 9.6 mg/dL (8.5-10.1); Chloride 97 mmol/L (98-107); Creatinine, Serum 1.13 mg/dL (0.70-1.30); EST Glomerular Filtration Rate 66 mL/min (>60); Est Glom Filt Rate - Afr Amer 80 mL/min (>60); Glucose 177 mg/dL (74-106); Potassium 4.1 mmol/L (3.5-5.1); Sodium Level 137 mmol/L (136-145)
== END | disposition home or self-care (01) ==
LOC: LAB 12:02
PROVIDERS: PCP Student in an Organized Health Care Education/Training Program; Referring Provider Nurse Practitioner Family; Visit Provider Nurse Practitioner Family
DX: R04.2 Hemoptysis (principal); R06.09 Other forms of dyspnea; Z86.79 Personal history of other diseases of the circulatory system
CPT/HCPCS: 36415; 71046; 80048; 85610

== ENCOUNTER → 2023-12-09 | Outpatient (CLI) | payer MEDICARE, SELFPAY ==
[2023-12-09 08:30] LABS: Anion Gap 5 (5-15); BUN 34 mg/dL (7-18); BUN/Creat Ratio 32.7 RATIO (10-20); Calcium,Total 9.4 mg/dL (8.5-10.1); Chloride 92 mmol/L (98-107); Creatinine, Serum 1.04 mg/dL (0.70-1.30); EST Glomerular Filtration Rate 73 mL/min (>60); Est Glom Filt Rate - Afr Amer 88 mL/min (>60); Glucose 121 mg/dL (74-106); Potassium 3.1 mmol/L (3.5-5.1); Sodium Level 134 mmol/L (136-145)
== END | disposition home or self-care (01) ==
LOC: LAB 07:28
PROVIDERS: PCP Student in an Organized Health Care Education/Training Program; Referring Provider Nurse Practitioner Gerontology; Visit Provider Nurse Practitioner Gerontology
DX: Z51.81 Encounter for therapeutic drug level monitoring (principal); I50.42 Chronic combined systolic (congestive) and diastolic (congestive) heart failure; Z79.899 Other long term (current) drug therapy; Z86.79 Personal history of other diseases of the circulatory system
CPT/HCPCS: 36415; 80048

== ENCOUNTER → 2024-01-31 | Outpatient (CLI) | payer MEDICARE, SELFPAY ==
[2024-01-31 15:59] LABS: Absolute Lymphocyte Count 0.76 X10^3/uL (0.83-4.51); Absolute Neutrophil Count 5.5 X10^3/uL (2.0-7.7); Basophil# 0.02 X10^3/uL; Basophil% 0.3 % (0-1); Eosinophil# 0.23 X10^3/uL; Eosinophils% 3.3 % (0-5); Hematocrit 38.9 % (40-54); Hemoglobin 11.9 g/dL (13.0-16.5); Lymphocyte # 0.76 X10^3/ul (0.83-4.51); Lymphocyte % 10.8 % (19-41); Mean Corp Hgb Conc 30.6 g/dL (32-36); Mean Corpuscular Hgb 29.5 pg (27.0-32.0); Mean Corpuscular Volume 96.5 fL (80-94); Mean Platelet Vol. 11.9 fl (6.2-12.0); Monocyte# 0.56 X10^3/uL; Monocyte% 7.9 % (0-10); NRBC Flagged by Analyzer 0 % (0-5); Neutrophil # 5.45 X10^3/uL (2.7-7.7); Neutrophil % 77.3 % (47-70); Platelet Count 119 K/mm3 (150-450); RBC Distribution Width CV 16.3 % (11.6-14.6); RBC Distribution Width SD 58.3 fl (35.1-43.9); Red Blood Count 4.03 M/mm3 (4.6-6.2); White Blood Count 7.1 K/mm3 (4.4-11.0)
[2024-01-31 16:16] LABS: Hemoglobin A1c 5.4 % (3.8-5.6)
[2024-01-31 16:31] LABS: ALB/GLOB Ratio 0.9 RATIO (0.9-2.4); AST(SGOT) 14 U/L (15-37); Alanine Aminotransfer ALT/SGPT 15 U/L (16-61); Albumin, Serum 3.3 g/dL (3.2-5.0); Alkaline Phosphatase 94 U/L (45-117); Anion Gap 7 (5-15); BUN 30 mg/dL (7-18); BUN/Creat Ratio 21.1 RATIO (10-20); Calcium,Total 9.2 mg/dL (8.5-10.1); Chloride 98 mmol/L (98-107); Cholesterol 84 mg/dL (200); Creatinine, Serum 1.42 mg/dL (0.70-1.30); EST Glomerular Filtration Rate 51 mL/min (>60); Est Glom Filt Rate - Afr Amer 61 mL/min (>60); Globulin 3.5 g/dL (2.2-4.2); Glucose 90 mg/dL (74-106); High Density Lipoprotein 40 mg/dL; Potassium 4.2 mmol/L (3.5-5.1); Protein, Total 6.8 g/dL (6.4-8.2); Sodium Level 137 mmol/L (136-145); Triglycerides 94 mg/dL; Very Low Density Lipoprotein 19 mg/dL (5-40)
[2024-02-01 12:38] LABS: CRP 8.33 mg/L (0.0-3.0); T4 Free Direct 1.08 ng/dL (0.76-1.46); Thyroid Stim Hormone (TSH) 1.57 uIU/mL (0.358-3.74); Uric Acid 10.7 mg/dL (3.5-7.2)
== END | disposition home or self-care (01) ==
PROVIDERS: PCP Student in an Organized Health Care Education/Training Program; Referring Provider Nurse Practitioner Family; Visit Provider Nurse Practitioner Family
DX: R60.0 Localized edema (principal); M25.50 Pain in unspecified joint; R73.01 Impaired fasting glucose; E78.2 Mixed hyperlipidemia; D69.6 Thrombocytopenia, unspecified
CPT/HCPCS: 36415; 80053; 80061; 83036; 84439; 84443; 84550; 85025; 86140

== ENCOUNTER → 2024-03-10 | Outpatient (CLI) | payer MEDICARE, SELFPAY ==
--- NOTE | 2024-03-10 14:20 | RAD_ITS ---
STUDY: X-RAY CHEST REASON FOR EXAM: Male, 84 years old. Concern for pleural effusion TECHNIQUE: Single AP portable view of the chest. COMPARISON: Comparison is made with prior study dated November 23, 2023. FINDINGS: There is a small right pleural effusion with right basilar atelectasis. Blunting of the left costophrenic angle. Findings suggestive of vascular congestion and mild CHF. Sternal cerclage wires are present from a prior sternotomy. A left-sided dual-chamber pacemaker is seen. Normal mediastinum and yuki. Normal visualized pulmonary arteries. There is atherosclerotic calcification of the aortic arch with tortuosity. There are diffuse degenerative changes of the visualized thoracic spine. There is degenerative osteoarthritis of the bilateral shoulders. There is no demonstrated abnormality of the visualized soft tissue structures of the upper abdomen. RAD/Chest PA and Lateral IMPRESSION: Small right pleural effusion with right basilar atelectasis. Blunting of the left costophrenic angle. Passive congestion and mild degree of CHF. Electronically Signed: Carlos Ron MD at 14:37 EDT ,
== END | disposition home or self-care (01) ==
LOC: RAD 14:11
PROVIDERS: PCP Student in an Organized Health Care Education/Training Program; Referring Provider Nurse Practitioner Acute Care; Visit Provider Nurse Practitioner Acute Care
DX: R06.09 Other forms of dyspnea (principal)
CPT/HCPCS: 71046

== ENCOUNTER → 2024-03-16 | Outpatient (CLI) | payer MEDICARE, SELFPAY ==
[2024-03-16 14:50] LABS: Anion Gap 5 (5-15); BUN 26 mg/dL (7-18); Calcium,Total 9.4 mg/dL (8.5-10.1); Chloride 97 mmol/L (98-107); Creatinine, Serum 1.04 mg/dL (0.70-1.30); EST Glomerular Filtration Rate 73 mL/min (>60); Est Glom Filt Rate - Afr Amer 88 mL/min (>60); Glucose 143 mg/dL (74-106); Potassium 3.8 mmol/L (3.5-5.1); Sodium Level 137 mmol/L (136-145)
== END | disposition home or self-care (01) ==
LOC: LAB 13:55
PROVIDERS: PCP Student in an Organized Health Care Education/Training Program; Referring Provider Nurse Practitioner Gerontology; Visit Provider Nurse Practitioner Gerontology
DX: E87.6 Hypokalemia (principal); Z86.79 Personal history of other diseases of the circulatory system; Z51.81 Encounter for therapeutic drug level monitoring; Z79.899 Other long term (current) drug therapy; J90 Pleural effusion, not elsewhere classified
CPT/HCPCS: 36415; 80048

== ENCOUNTER 2024-04-05 09:20 | Inpatient (IN) | payer MEDICARE, SELFPAY ==
[2024-04-05] VITALS (8 sets, daily range): BP systolic 100–127; BP diastolic 62–71; PULSE 61–79; RESP 14–18; TEMP 36.3–36.6; O2SAT 84–99; BMI 29.5
--- NOTE | 2024-04-05 09:29 | EKG12_ITS ---
Test Reason : Blood Pressure : / mmHG Vent. Rate : 065 BPM Atrial Rate : 065 BPM P-R Int : 120 ms QRS Dur : 144 ms QT Int : 416 ms P-R-T Axes : 000 166 087 degrees QTc Int : 432 ms Normal sinus rhythm Right bundle branch block , plus right ventricular hypertrophy Abnormal ECG Confirmed by Dutch Castro ([id number]), photo editor BARNEY TOWNSEND ([id number]) on 04/07/2024 9:42:22 AM Referred By: Confirmed By:Dutch Castro
--- NOTE | 2024-04-05 09:38 | EDS_ITS ---
HPI History of Present Illness Chief Complaint: Shortness of Breath Narrative Narrative: Patient is a 84-year-old male with a past medical history of congestive heart failure with an echocardiogram from 2021 which showed ejection fraction of 20?5% with grade 2 left diastolic dysfunction, hypertension, CVA, colon cancer, atrial fibrillation on warfarin who presents to the emerged part with a chief complaint of swelling up to his scrotum. Patient went to an urgent care who ultimately called here and notified us that the patient was coming to the hospital further evaluation management. He notes that he has been taking his medications although according the nurse practitioner at the outpatient office stated that he has not been taking his medication as prescribed from a diuresis standpoint. States that he is up 15 pounds in approximately few months. 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 LV (left ventricular) mural thrombus Wears glasses History of steroid therapy Arthritis Kidney stone Back pain Stroke/cerebrovascular accident History of hiatal hernia Non-smoker History of pain when walking Osteoarthritis Atrial fibrillation Personal history of colonic polyps Personal history of colon cancer, stage III Colon cancer History of stroke Hyperlipidemia Home Medications ?Medication ?Instructions ?Recorded ?Last Taken ?Type clonazepam 0.5 mg tablet (Klonopin) 0.5 mg PO TID anxiety 08/11/13 12/07/22 History ascorbic acid (vitamin C) 500 mg 1,000 mg PO DAILY@0800 supplement 07/11/15 12/07/22 History tablet aspirin 81 mg tablet,delayed 81 mg PO QHS heart health 07/11/15 12/06/22 History release vit C 250 mg-vit E 90 mg-zinc 40 1 tab PO BID eye vitamin 02/24/21 12/07/22 History mg-copper 1 [id number] capsule (PreserVision AREDS-2) cholecalciferol (vitamin D3) 125 125 mcg PO DAILY 03/05/23 Unknown History mcg (5,000 unit) tablet warfarin 3 mg tablet 3 mg PO 4XW #60 tabs 05/13/23 Unknown Rx atorvastatin 10 mg tablet 10 mg PO QHS #90 tabs 09/06/23 Unknown Rx tamsulosin 0.4 mg capsule 0.4 mg PO QHS 10/13/23 Unknown History metolazone 2.5 mg tablet 2.5 mg PO .COMPLEX #30 tabs 11/22/23 Unknown Rx carvedilol 25 mg tablet 12.5 mg (1/2 x 25 mg) PO BID #180 01/12/24 Unknown Rx tabs furosemide 40 mg tablet (Lasix) 40 mg PO BID #360 tabs 02/09/24 Unknown Rx warfarin 2 mg tablet 2 mg PO .COMPLEX #90 TABLETS 02/17/24 Unknown Rx potassium chloride 20 mEq 40 meq (2 x 20 mEq) PO BID #180 03/20/24 Unknown Rx tablet,extended release tabs Allergy/AdvReac Type Severity Reaction Status Date / Time amiodarone AdvReac Severe Severe Verified 04/05/24 09:21 urinary retention requiring catheter KALEIGH Inhibitors AdvReac Other Verified 04/05/24 09:21 hydrochlorothiazide AdvReac Other Verified 04/05/24 09:21 levofloxacin (From Levaquin) AdvReac aching Verified 04/05/24 09:21 legs trouble walking spironolactone AdvReac Other Verified 04/05/24 09:21 Family History Father Hypertension Heart disease Surgical History History of left heart catheterization History of implantable cardiac defibrillator (ICD) (02/10/17) H/O coronary artery bypass surgery (08/27/05) History of coronary artery stent placement (05/27/21) History of ankle fusion History of right knee joint replacement History of colonoscopy (2016) History of left hip replacement History of cholecystectomy Hx of cataract surgery History of colon surgery Social History household members: spouse Smoking Status: Never smoker alcohol intake: never substance use type: does not use caffeine: Yes Type: coffee Number of servings: 1 ROS ROS ED ROS Narrative Constitutional: Denies fevers, chills, headaches, lightness, dizziness Eyes: Denies changes double vision blurry vision Cardiovascular: Denies chest pain or palpitations Respiratory: When the shortness of breath denies coughing wheezing Abdomen: Denies abdominal pain nausea vomit diarrhea : Complains of some painful urination denies any hematuria Neurological: Denies numbness, weakness, tingling Musculoskeletal: Denies back pain Skin: Denies rashes or lesions EXAM Physical Exam Narrative Exam Narrative: General: Patient lying in bed rest comfortably did not appear to be in acute distress Head: Atraumatic, normocephalic Eyes: PERRL bilateral, EOMI intact bilaterally no conjunctival injection noted Neck: Soft, supple, trach midline Cardiovascular: Regular in rhythm no murmurs gallops rubs noted Respiratory: Diminished breath sounds bases Abdomen: Soft, nondistended, nontender to palpation, bowel sounds present x 4 Extremities: Radial pulses +2/4 in the bilateral per extremities, 2+ pitting edema in the bilateral lower extremities Neurological: Patient following commands knew that he was at [facility] years 2023 Skin: Patient has blistering of the skin noted to the anterior shins bilaterally no fluctuance noted no surrounding erythema Const Vital Signs: 04/05/24 09:21 04/05/24 09:33 04/05/24 09:33 Temperature 97.6 F L Temperature Source Oral Pulse Rate 68 Respiratory Rate 18 Respiratory Effort Short of Breath Respiratory Pattern Tachypnea Blood Pressure 106/66 Blood Pressure Mean 79 Pulse Ox 84 95 Oxygen Delivery Method Nasal Cannula Nasal Cannula Nasal Cannula Oxygen Flow Rate (L/min) 4 4 4 04/05/24 10:24 Temperature 97.4 F L Temperature Source Oral Pulse Rate 72 Respiratory Rate 17 Respiratory Effort Respiratory Pattern Blood Pressure Blood Pressure Mean Pulse Ox 99 Oxygen Delivery Method Nasal Cannula Oxygen Flow Rate (L/min) 3 MDM MDM MDM Narrative Medical decision making narrative: Patient is a 84-year-old male who presented to the emergency department chief complaint of increased edema in the bilateral lower extremities, hypoxia. Patient will have workup performed here on the differential diagnose includes but not limited to ACS, CHF exacerbation. Once workup is obtained reviewed he will be reevaluated. Patient CBC was reviewed and was largely unremarkable no evidence of leukocytosis white blood count normal at 7.1, hemoglobin stable 13, platelet count was noted to be 105, patient's INR noted to be 3 he is on warfarin, sodium normal at 140, potassium normal 3.6, creatinine normal at 1.14. Patient's magnesium level normal at 2.1, troponin normal at 32, EKG reviewed and independently interpreted by myself which showed ST depressions noted in leads V1 through V4 with a rate of 65 bpm evidence of right bundle branch block. Did compare this to his previous EKG which showed a ventricular paced rhythm with a rate of 51 bpm. I discussed case with on-call press clippings cutter and paster Dr. Castro who reviewed both EKGs and states that he believes this is from his intrinsic heartbeat and notes that the previous EKG was from his pacemaker does not believe that this is a STEMI equivalent. Patient's proBNP elevated 2944. Patient's chest x-ray was reviewed by myself and by radiology which showed increasing right pleural effusion and right basilar atelectasis. At this point time do believe the patient will warrant admission for CHF exacerbation he will be given 40 mg of IV Lasix. Did discuss this with the patient and for members at bedside they are agreeable with this plan. Patient's case was discussed with hospitalist Dr. Tristan who accept patient for admission. Lab Data Labs: Laboratory Results - last 24 hr 04/05/24 09:35 WBC 7.1 RBC 4.45 L Hgb 13.0 Hct 43.3 MCV 97.3 H MCH 29.2 MCHC 30.0 L RDW Std Deviation 55.8 H RDW Coeff of Abdirahman 15.7 H Plt Count 105 L MPV 11.2 Immature Gran % (Auto) 0.400 Neut % (Auto) 83.5 H Lymph % (Auto) 6.7 L [place] % (Auto) 7.1 Eos % (Auto) 2.0 Baso % (Auto) 0.3 Absolute Neuts (auto) 5.9 Absolute Lymphs (auto) 0.47 L Nucleated RBC % 0 PT 30.8 H INR 3.0 APTT 46.6 H Sodium 140 Potassium 3.6 Chloride 96 L Carbon Dioxide 40.0 H Anion Gap 4 L BUN 24 H Creatinine 1.14 Estim Creat Clear Calc 44.67 Est GFR (MDRD) Af Amer 79 Est GFR (MDRD) Non-Af 65 BUN/Creatinine Ratio 21.1 H Glucose 102 Calcium 9.5 Magnesium 2.1 Troponin I High Sens 32 B-Natriuretic Peptide 2944.9 H Radiography Diagnostic Testing: Clinical Impression(s) from Imaging Studies Chest X-Ray 04/05/24 09:45 IMPRESSION: Increasing right pleural effusion with right basilar atelectasis. Electronically Signed: Carlos Ron MD at 9:55 EDT , Discharge Plan Triage Chief Complaint: Shortness of Breath ED Provider: Fabian Padgett Dx/Rx/DC Orders Clinical Impression: CHF exacerbation, Hypoxia Prescriptions: No Action cholecalciferol (vitamin D3) 125 mcg (5,000 unit) tablet 125 mcg PO DAILY clonazepam [Klonopin] 0.5 MG tablet 0.5 mg PO TID Patient Comments: ANXIETY aspirin 81 MG tablet 81 mg PO QHS Patient Comments: HEART ascorbic acid (vitamin C) 500 MG tablet 1,000 mg PO DAILY@0800 Patient Comments: SUPPLEMENT PreserVision AREDS-2 250-90-40-1 mg Capsule 1 tab PO BID warfarin 3 mg tablet 3 mg PO 4XW Qty: 60 3RF Protocol: Dose Management Condition: Wednesday Dose/Route: 3 mg Instruction: 1 x 3 mg tablet Condition: Wednesday Dose/Route: 2 mg Instruction: 1 x 2 mg tablet Condition: Wednesday Dose/Route: 2 mg Instruction: 1 x 2 mg tablet Condition: Wednesday Dose/Route: 2 mg Instruction: 1 x 2 mg tablet Condition: Dose/Route: 2 mg Instruction: 1 x 2 mg tablet Condition: Wednesday Dose/Route: 2 mg Instruction: 1 x 2 mg tablet Condition: Wednesday Dose/Route: 3 mg Instruction: 1 x 3 mg tablet Protocol Text: Adjustment Start Date: Wednesday03/31/24 INR Value: 2.6 INR Date: 03/31/24 Recheck Date: 04/07/24 Rx Instructions: Use as directed atorvastatin 10 mg tablet 10 mg PO QHS Qty: 90 3RF tamsulosin 0.4 mg capsule 0.4 mg PO QHS metolazone 2.5 mg tablet 2.5 mg PO .COMPLEX Qty: 30 3RF Rx Instructions: 2.5 mg orally q Wednesday and Wednesday: take 30 minutes before first morning dose of Furosemide; carvedilol 25 mg tablet 12.5 mg PO BID Qty: 180 3RF furosemide [Lasix] 40 mg tablet 40 mg PO BID Qty: 360 3RF warfarin 2 mg tablet 2 mg PO .COMPLEX Qty: 90 4RF Protocol: Dose Management Condition: Wednesday Dose/Route: 3 mg Instruction: 1 x 3 mg tablet Condition: Wednesday Dose/Route: 2 mg Instruction: 1 x 2 mg tablet Condition: Wednesday Dose/Route: 2 mg Instruction: 1 x 2 mg tablet Condition: Wednesday Dose/Route: 2 mg Instruction: 1 x 2 mg tablet Condition: Dose/Route: 2 mg Instruction: 1 x 2 mg tablet Condition: Wednesday Dose/Route: 2 mg Instruction: 1 x 2 mg tablet Condition: Wednesday Dose/Route: 3 mg Instruction: 1 x 3 mg tablet Protocol Text: Adjustment Start Date: Wednesday03/31/24 INR Value: 2.6 INR Date: 03/31/24 Recheck Date: 04/07/24 Rx Instructions: 2 mg orally daily Wed-Wed and 3mg Wed and Sundays; or use as directed; potassium chloride 20 mEq tablet extended release 40 meq PO BID Qty: 180 3RF Primary Care Provider: Handy Beltran Referrals: Handy Beltran DO [Primary Care Provider] - Print Language: Dominican
--- NOTE | 2024-04-05 09:45 | RAD_ITS ---
STUDY: X-RAY CHEST REASON FOR EXAM: Male, 84 years old. Chest pain. Increasing shortness of breath. TECHNIQUE: PA and lateral views of the chest. COMPARISON: Comparison is made with prior study March 10, 2024. FINDINGS: EKG electrodes are seen. Small right pleural effusion with right basilar atelectasis. This has progressed as compared to prior study. Sternal cerclage wires and vascular clips are present from a prior sternotomy and coronary artery bypass graft procedure (CABG). Vascular congestion. Left-sided dual-chamber pacemaker. Normal mediastinum and yuki. Normal visualized pulmonary arteries. There is atherosclerotic calcification of the aortic arch with tortuosity. There are diffuse degenerative changes of the visualized thoracic spine. There is degenerative osteoarthritis of the bilateral shoulders. There is no demonstrated abnormality of the visualized soft tissue structures of the upper abdomen. RAD/Chest PA and Lateral IMPRESSION: Increasing right pleural effusion with right basilar atelectasis. Electronically Signed: Carlos Ron MD at 9:55 EDT ,
[2024-04-05 09:47] LABS: Absolute Lymphocyte Count 0.47 X10^3/uL (0.83-4.51); Absolute Neutrophil Count 5.9 X10^3/uL (2.0-7.7); Basophil# 0.02 X10^3/uL; Basophil% 0.3 % (0-1); Eosinophil# 0.14 X10^3/uL; Hematocrit 43.3 % (40-54); Lymphocyte # 0.47 X10^3/ul (0.83-4.51); Lymphocyte % 6.7 % (19-41); Mean Corpuscular Hgb 29.2 pg (27.0-32.0); Mean Corpuscular Volume 97.3 fL (80-94); Mean Platelet Vol. 11.2 fl (6.2-12.0); Monocyte% 7.1 % (0-10); NRBC Flagged by Analyzer 0 % (0-5); Neutrophil % 83.5 % (47-70); POSITIVE DIFFERENTIAL YES; Platelet Count 105 K/mm3 (150-450); RBC Distribution Width CV 15.7 % (11.6-14.6); RBC Distribution Width SD 55.8 fl (35.1-43.9); Red Blood Count 4.45 M/mm3 (4.6-6.2); White Blood Count 7.1 K/mm3 (4.4-11.0)
[2024-04-05 10:03] LABS: Anion Gap 4 (5-15); BUN 24 mg/dL (7-18); BUN/Creat Ratio 21.1 RATIO (10-20); Calcium,Total 9.5 mg/dL (8.5-10.1); Chloride 96 mmol/L (98-107); Creatinine, Serum 1.14 mg/dL (0.70-1.30); EST Glomerular Filtration Rate 65 mL/min (>60); Est Glom Filt Rate - Afr Amer 79 mL/min (>60); Estimated Creatinine Clearance 44.67 ml/min; Glucose 102 mg/dL (74-106); Magnesium 2.1 mg/dL (1.6-2.6); Potassium 3.6 mmol/L (3.5-5.1); Sodium Level 140 mmol/L (136-145); Troponin-I HS (w/2H Reflex) 32 pg/mL (3.0-78.0)
[2024-04-05 10:04] LABS: Partial Thromboplast Time 46.6 Seconds (24.1-36.2); Prothrombin Time (Protime)PT. 30.8 SECONDS (11.7-14.9)
[2024-04-05 10:22] LABS: BNP,B-Type NATRIURETIC PEPTIDE 2944.9 pg/mL (0-100)
[2024-04-05] MEDS: Furosemide 40 MG/4 ML Vial IV ×2 (10:31→17:32)
--- NOTE | 2024-04-05 11:40 | ECHOCS_ITS ---
Reason For Study: CHF Procedure This was a 2D Doppler, Color Flow transthoracic echocardiogram. The study was technically difficult. Exam performed portable in patient room. Left Ventricle Mildly dilated left ventricle. The estimated ejection fraction is 25 %. Stage 2 diastolic dysfunction. There is severe global hypokinesis of the left ventricle. Right Ventricle Normal RV size. ICD or pacer leads identified within the right ventricle. Normal systolic function. Atria The left atrium is mildly enlarged. ICD or pacer leads identified within the right atrium. The right atrium is mildly enlarged. Mitral Valve There is no mitral valve stenosis. Moderate (2+) mitral valve insufficiency. Tricuspid Valve There is no tricuspid stenosis. Trivial tricuspid valve insufficiency. Pulmonary artery systolic pressure is 40 mmHg. Aortic Valve Trisinus/trileaflet aortic valve. There is no aortic stenosis. No aortic valve insufficiency. Pulmonic Valve There is no pulmonic valvular stenosis. Trivial pulmonic valve insufficiency. Great Vessels Normal aortic root. Pericardium/Pleural No pericardial effusion. Medication Diluted definity 2ml given slow IV push to enhance endocardial definition. MMode/2D Measurements & Calculations LVIDd: 6.1 cm IVSd: 1.3 cm Ao root diam: 3.4 cm LVIDs: 5.5 cm LVPWd: 1.4 cm RVDd: 4.4 cm FS: 8.9 % LAV(MOD-bp): 72.4 ml LVAd ap4: 67.9 cm2 SV(MOD-sp4): 42.7 ml LAV(MOD-bp) Indexed: 39.2 ml/m2 LVLd ap4: 10.8 cm LAV(MOD-sp2): 72.3 ml EDV(MOD-sp4): 345.0 ml LAV(MOD-sp4): 68.9 ml EDV(sp4-el): 363.5 ml LVAs ap4: 63.5 cm2 LVLs ap4: 10.7 cm ESV(MOD-sp4): 302.3 ml ESV(sp4-el): 319.8 ml EF(MOD-sp4): 12.4 % EF(sp4-el): 12.0 % SV(sp4-el): 43.7 ml LA A4 area: 22.9 cm2 LA dimension(2D): 5.2 cm RA A4 area: 21.2 cm2 TAPSE: 1.6 cm Time Measurements MV dec time: 0.19 sec Doppler Measurements & Calculations MV E max akil: 72.5 cm/sec Med Peak E' Akil: 2.2 cm/sec Ao V2 max: 81.1 cm/sec MV A max akil: 62.3 cm/sec E/E' med: 33.6 Ao max P.6 mmHg MV E/A: 1.2 LV V1 max: 67.4 cm/sec PA V2 max: 94.7 cm/sec TR max akil: 294.1 cm/sec LV V1 max P.8 mmHg TR max P.6 mmHg ECHO/Echo Complete W/ Contrast Interpretation Summary The estimated ejection fraction is 25 %. Stage 2 diastolic dysfunction. There is severe global hypokinesis of the left ventricle. The left atrium is mildly enlarged. The right atrium is mildly enlarged. Moderate (2+) mitral valve insufficiency. Ordering Physician: Fercho Tristan Referring Physician: JOHN ZARAGOZA Performed By: Jojo Dukes RDCS
[2024-04-05 11:44] LABS: Reflex Troponin-HS? (from REC) Y
[2024-04-05 12:37] LABS: Troponin-I HS 36 pg/mL (3.0-78.0)
--- NOTE | 2024-04-05 15:29 | HP.PCM.HOS_ITS ---
HPI - General General Date of Admission: 04/05/24 Date of Service: 04/05/24 Chief Complaint: Edema HPI Narrative DARRELL PRIETO, is a 84 M who presents with edema. This is an 84-year-old male with a history of ischemic cardiomyopathy with an EF of 20%. States that he has been noticing more swelling in his legs and scrotum. Patient is on oxygen 2 L continuous. Previous to that had been only on nights. Went to urgent care because of scrotal edema and sent to the emergency room. Chest x- ray in the emergency room showed CHF. Patient received 40 mg of IV furosemide. 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 LV (left ventricular) mural thrombus Wears glasses History of steroid therapy Arthritis Kidney stone Back pain Stroke/cerebrovascular accident History of hiatal hernia Non-smoker History of pain when walking Osteoarthritis Atrial fibrillation Personal history of colonic polyps Personal history of colon cancer, stage III Colon cancer History of stroke Hyperlipidemia Home Medications ?Medication ?Instructions ?Recorded ?Last Taken ?Type clonazepam 0.5 mg tablet (Klonopin) 0.5 mg PO TID anxiety 08/11/13 12/07/22 History ascorbic acid (vitamin C) 500 mg 1,000 mg PO DAILY@0800 supplement 07/11/15 12/07/22 History tablet aspirin 81 mg tablet,delayed 81 mg PO QHS heart health 07/11/15 12/06/22 History release vit C 250 mg-vit E 90 mg-zinc 40 1 tab PO BID eye vitamin 02/24/21 12/07/22 History mg-copper 1 [id number] capsule (PreserVision AREDS-2) cholecalciferol (vitamin D3) 125 125 mcg PO DAILY 03/05/23 Unknown History mcg (5,000 unit) tablet warfarin 3 mg tablet 3 mg PO 4XW #60 tabs 05/13/23 Unknown Rx atorvastatin 10 mg tablet 10 mg PO QHS #90 tabs 09/06/23 Unknown Rx tamsulosin 0.4 mg capsule 0.4 mg PO QHS 10/13/23 Unknown History metolazone 2.5 mg tablet 2.5 mg PO .COMPLEX #30 tabs 11/22/23 Unknown Rx carvedilol 25 mg tablet 12.5 mg (1/2 x 25 mg) PO BID #180 01/12/24 Unknown Rx tabs furosemide 40 mg tablet (Lasix) 40 mg PO BID #360 tabs 02/09/24 Unknown Rx warfarin 2 mg tablet 2 mg PO .COMPLEX #90 TABLETS 02/17/24 Unknown Rx potassium chloride 20 mEq 40 meq (2 x 20 mEq) PO BID #180 03/20/24 Unknown Rx tablet,extended release tabs Allergy/AdvReac Type Severity Reaction Status Date / Time amiodarone AdvReac Severe Severe Verified 04/05/24 09:21 urinary retention requiring catheter KALEIGH Inhibitors AdvReac Other Verified 04/05/24 09:21 hydrochlorothiazide AdvReac Other Verified 04/05/24 09:21 levofloxacin (From Levaquin) AdvReac aching Verified 04/05/24 09:21 legs trouble walking spironolactone AdvReac Other Verified 04/05/24 09:21 Family History Father Hypertension Heart disease Surgical History History of left heart catheterization History of implantable cardiac defibrillator (ICD) (02/10/17) H/O coronary artery bypass surgery (08/27/05) History of coronary artery stent placement (05/27/21) History of ankle fusion History of right knee joint replacement History of colonoscopy (2016) History of left hip replacement History of cholecystectomy Hx of cataract surgery History of colon surgery Social History household members: spouse Smoking Status: Never smoker alcohol intake: never substance use type: does not use caffeine: Yes Type: coffee Number of servings: 1 ROS ROS Narrative All review of systems were negative except as mentioned above in the history of present illness and the other review of systems. Vital Signs Vital Signs Vital Signs: 04/05/24 09:21 09/25/24 09:33 04/05/24 09:33 Temperature 36.4 C L Temperature Source Oral Pulse Rate 68 Respiratory Rate 18 Respiratory Effort Short of Breath Respiratory Depth Respiratory Pattern Tachypnea Blood Pressure 106/66 Blood Pressure Mean 79 Blood Pressure Source Blood Pressure Position Blood Pressure Location Pulse Ox 84 95 Oxygen Delivery Method Nasal Cannula Nasal Cannula Nasal Cannula Oxygen Flow Rate (L/min) 4 4 4 04/05/24 10:24 04/05/24 10:57 04/05/24 11:00 Temperature 36.3 C L 36.4 C L Temperature Source Oral Pulse Rate 72 71 61 Respiratory Rate 17 14 Respiratory Effort Respiratory Depth Respiratory Pattern Blood Pressure 104/62 100/62 Blood Pressure Mean 76 74 Blood Pressure Source Blood Pressure Position Blood Pressure Location Pulse Ox 99 98 97 Oxygen Delivery Method Nasal Cannula Room Air Oxygen Flow Rate (L/min) 3 04/05/24 11:49 04/05/24 12:10 Temperature 36.4 C L Temperature Source Temporal Pulse Rate 69 Respiratory Rate 16 Respiratory Effort Short of Breath Respiratory Depth Shallow Respiratory Pattern Blood Pressure 124/65 H Blood Pressure Mean 84 Blood Pressure Source Monitor Blood Pressure Position Semi-Fowlers Blood Pressure Location Right Arm Pulse Ox 95 Oxygen Delivery Method Nasal Cannula Nasal Cannula Oxygen Flow Rate (L/min) 3 Weight Weight: 81.2 kg Body Mass Index (BMI) 29.5 Physical Exam Const alert and no apparent distress Neck no lymphadenopathy Neck Narrative: No thyromegaly Resp normal respiratory effort, no retractions, no use of accessory muscles and clear to auscultation bilaterally Cardio regular rate, regular rhythm, S1 normal heart sound and S2 normal heart sound GI normal to inspection, nondistended, normoactive bowel sounds, soft to palpation, non-tender, non-distended and hepatosplenomegaly Extremity Extremity Narrative: Marked lower extremity edema. Neuro Sensorium / Orientation: awake and alert Psych affect normal Results Lab / Micro Data Attestation: I reviewed the patient's lab results. 04/05/24 09:35 04/05/24 09:35 Labs: Laboratory Results - last 24 hr 04/05/24 09:35: WBC 7.1, RBC 4.45 L, Hgb 13.0, Hct 43.3, MCV 97.3 H, MCH 29.2, M CHC 30.0 L, RDW Std Deviation 55.8 H, RDW Coeff of Abdirahman 15.7 H, Plt Count 105 L, MPV 11.2, Immature Gran % (Auto) 0.400, Neut % (Auto) 83.5 H, Lymph % (Auto) 6.7 L, [place] % (Auto) 7.1, Eos % (Auto) 2.0, Baso % (Auto) 0.3, Absolute Neuts (auto) 5.9, Absolute Lymphs (auto) 0.47 L, Nucleated RBC % 0, PT 30.8 H, INR 3.0, APTT 46.6 H, Sodium 140, Potassium 3.6, Chloride 96 L, Carbon Dioxide 40.0 H, Anion Gap 4 L, BUN 24 H, Creatinine 1.14, Estim Creat Clear Calc 44.67, Est GFR (MDRD) Af Amer 79, Est GFR (MDRD) Non-Af 65, BUN/Creatinine Ratio 21.1 H, Glucose 102, Calcium 9.5, Magnesium 2.1, Troponin I High Sens 32, B-Natriuretic Peptide 2944.9 H 04/05/24 11:52: Troponin I High Sens 36 Imaging Radiology Impression Chest X-Ray 04/05/24 09:45 IMPRESSION: Increasing right pleural effusion with right basilar atelectasis. Electronically Signed: Carlos Ron MD at 9:55 EDT , Assessment & Plan Assessment/Plan (1) HFrEF (heart failure with reduced ejection fraction): PLAN: acute HFrEF IV furosemide. No KALEIGH-/ARB due to reaction. No spironolactone given gyenocomastia. Fluid restrict 1.5 liters. Continue carvedilol check echo PLAN: Plan Chronic conditions: * CAD: continue ASA, atorvastatin. * afib: on warfarin VTE prophylaxis: not indicated as he is on warfarin. Code status: Full. DW family at bedside. Charges/Coding Visit Charges Inpatient E&M: 01419 Init Hosp L3
[2024-04-05] MEDS: Jantoven 2 MG Tablet PO (17:31)
[2024-04-05] MEDS: Potassium Chloride Oral Tablet 20 MEQ 40 MEQ PO (17:31)
[2024-04-05] MEDS: Carvedilol 12.5 MG Tablet PO (20:41)
[2024-04-05] MEDS: Multivitamin (Healthy Eyes) Capsule 1 CAP PO (20:41)
[2024-04-05] MEDS: Aspirin E.C. 81 MG Tablet PO (20:41)
[2024-04-05] MEDS: Atorvastatin Calcium 10 MG Tablet PO (20:41)
[2024-04-05] MEDS: Tamsulosin HCl 0.4 MG Capsule PO (20:41)
[2024-04-06 03:12] VITALS: BP 104/60; PULSE 64; RESP 17; TEMP 36.4; O2SAT 95
[2024-04-06 03:32] VITALS: BMI 31.7
[2024-04-06 06:53] VITALS: O2SAT 94
[2024-04-06 07:16] LABS: International Normalized Ratio 2.5; Prothrombin Time (Protime)PT. 27.1 SECONDS (11.7-14.9)
[2024-04-06 07:18] LABS: Anion Gap 5 (5-15); BUN 24 mg/dL (7-18); BUN/Creat Ratio 23.8 RATIO (10-20); Calcium,Total 8.9 mg/dL (8.5-10.1); Chloride 98 mmol/L (98-107); Creatinine, Serum 1.01 mg/dL (0.70-1.30); EST Glomerular Filtration Rate 75 mL/min (>60); Est Glom Filt Rate - Afr Amer 91 mL/min (>60); Estimated Creatinine Clearance 52.22 ml/min; Glucose 108 mg/dL (74-106); Potassium 3.3 mmol/L (3.5-5.1); Sodium Level 141 mmol/L (136-145)
[2024-04-06] MEDS: Ascorbic Acid 500 MG Tablet 1000 MG PO (08:42)
[2024-04-06] MEDS: Potassium Chloride Oral Tablet 20 MEQ 40 MEQ PO ×2 (08:43→17:18)
--- NOTE | 2024-04-06 09:17 | PN.HOSP_ITS ---
Reason for Visit Reason for Visit: Diagnoses Unspecified systolic (congestive) heart failure (04/05/24) Subjective Subjective Improved lower extremity edema. States he does not check his weights at home Objective Data Objective Data Vital Signs: Vital Signs Temp Pulse Resp BP Pulse Ox O2 Del Method O2 Flow Rate 36.4 C L 64 17 104/60 94 Nasal Cannula 2 04/06/24 03:12 04/06/24 03:12 04/06/24 03:12 04/06/24 03:12 04/06/24 06:53 04/06/24 06:53 04/06/24 06:53 Oxygen Flow Rate (L/min) 2 Oxygen Delivery Method Nasal Cannula Weight: 81.2 kg Body Mass Index (BMI) 31.7 Intake & Output: Intake and Output for Last 24 Hours 04/04/24 04/05/24 04/06/24 23:59 23:59 23:59 Intake Total 480 / 480 Output Total 350 / 350 Balance 130 / 130 Lab / Micro Data 04/05/24 09:35 04/06/24 06:37 Labs: Laboratory Results - last 24 hr 04/05/24 09:35: WBC 7.1, RBC 4.45 L, Hgb 13.0, Hct 43.3, MCV 97.3 H, MCH 29.2, M CHC 30.0 L, RDW Std Deviation 55.8 H, RDW Coeff of Abdirahman 15.7 H, Plt Count 105 L, MPV 11.2, Immature Gran % (Auto) 0.400, Neut % (Auto) 83.5 H, Lymph % (Auto) 6.7 L, Heard % (Auto) 7.1, Eos % (Auto) 2.0, Baso % (Auto) 0.3, Absolute Neuts (auto) 5.9, Absolute Lymphs (auto) 0.47 L, Nucleated RBC % 0, PT 30.8 H, INR 3.0, APTT 46.6 H, Sodium 140, Potassium 3.6, Chloride 96 L, Carbon Dioxide 40.0 H, Anion Gap 4 L, BUN 24 H, Creatinine 1.14, Estim Creat Clear Calc 44.67, Est GFR (MDRD) Af Amer 79, Est GFR (MDRD) Non-Af 65, BUN/Creatinine Ratio 21.1 H, Glucose 102, Calcium 9.5, Magnesium 2.1, Troponin I High Sens 32, B-Natriuretic Peptide 2944.9 H 04/05/24 11:52: Troponin I High Sens 36 04/06/24 06:37: PT 27.1 H, INR 2.5, Sodium 141, Potassium 3.3 L, Chloride 98, C arbon Dioxide 38.0 H, Anion Gap 5, BUN 24 H, Creatinine 1.01, Estim Creat Clear Calc 52.22, Est GFR (MDRD) Af Amer 91, Est GFR (MDRD) Non-Af 75, BUN/Creatinine Ratio 23.8 H, Glucose 108 H, Calcium 8.9 Radiography Diagnostic Testing: Radiology Impression Chest X-Ray 04/05/24 09:45 IMPRESSION: Increasing right pleural effusion with right basilar atelectasis. Electronically Signed: Carlos Ron MD at 9:55 EDT Reading Location ID and State: [facility] / [place] , Service support , Echocardiogram 04/05/24 11:40 Interpretation Summary The estimated ejection fraction is 25 %. Stage 2 diastolic dysfunction. There is severe global hypokinesis of the left ventricle. The left atrium is mildly enlarged. The right atrium is mildly enlarged. Moderate (2+) mitral valve insufficiency. Ordering Physician: Fercho Tristan Referring Physician: JOHN ZARAGOZA Performed By: Jojo Dukes RDCS Physical Exam Const alert and no apparent distress HEENT head/scalp atraumatic and moist oral mucous membranes Resp normal respiratory effort, no retractions, no use of accessory muscles and clear to auscultation bilaterally Cardio regular rate, regular rhythm, S1 normal heart sound and S2 normal heart sound GI normal to inspection, nondistended, normoactive bowel sounds, soft to palpation, non-tender and non-distended Extremity General Extremity: edema bilateral lower extremity Details: moderate Assessment & Plan Assessment/Plan (1) HFrEF (heart failure with reduced ejection fraction): PLAN: acute HFrEF No KALEIGH-/ARB due to reaction. No spironolactone given gyenocomastia. Fluid restrict 1.5 liters. Continue carvedilol Echo shows an EF of 25% with severe global hypokinesis of the left ventricle, left atrium mildly enlarged, right atrium mildly enlarged. Patient was on IV furosemide bolus dosing. Will place the patient on a furosemide drip. Will have cardiology see and provide additional input PLAN: Plan Chronic conditions: * CAD: continue ASA, atorvastatin. * afib: on warfarin VTE prophylaxis: not indicated as he is on warfarin. Code status: Full. DW family at bedside. Charges/Coding Visit Charges Inpatient E&M: 34419 Subs Hosp L2
[2024-04-06 10:20] VITALS: BP 107/95; PULSE 69; RESP 16; TEMP 35.9; O2SAT 97
[2024-04-06] MEDS: Cholecalciferol (Vit D3) 125 MCG CAPSULE (5,000 UNITS) PO (10:30)
[2024-04-06] MEDS: Multivitamin (Healthy Eyes) Capsule 1 CAP PO ×2 (10:30→22:15)
[2024-04-06] MEDS: Furosemide 500 MG in Empty Viaflex 50 mL 1 EACH CONT INF (11:41)
[2024-04-06] MEDS: FLU VACCINE **HIGH DOSE** TV 24-25 180 MCG/0.5 ML SYRINGE IM (11:48)
--- NOTE | 2024-04-06 12:56 | CASEMGMT ---
Addendum entered by Lloyd Rachel 04/06/24 13:43: Marlene from [facility] returns call and states that they are able to accept the pt with the SOC TBD depending on the DC date, CM to follow. Report given to [employer] JOSH. Original Note: RN CM Assessment Face to Face with patient for initial transition planning/care coordination assessment. RN CM introduced self and role at [facility], pt voices understanding. Pt is A&Ox4 and is resting comfortably in the chair and is calm. Pt at bedside. Care providers, pharmacy, and demographics verified. Admitting dx: CHF Ex PCP: Handy Beltran Specialists: [facility]. [facility] Preferred Pharmacy: [facility] [place] Insurance: [employer] Prescription Benefit: Yes LNOK: Monserrat Coronel (W), David Berna (Son), Ananda and Scot Berna (Sons) Living Arrangements: Pt lives with his in a single story home with 4 steps to enter ADLs/IADLs: Reports independent at baseline Transportation: Self, sons. Denies concerns DME: Home oxygen through [employer]. Pt states that he wears 2L continuously at this time. Pt has a concentrator, portable tanks (Has one with him), and a pulse ox. Pt also has a cane, FWW, and BP monitor. HHC/SNF: Reports HHC History around a year ago but cannot recall the name of the agency. Pt believes it was [facility]. Denies SNF history or needs Pt?s goal: Home with HHC Plan: Anticipate home with HHC. At this time, the pt declines wanting to review a list of local in-network HHC agencies and states that he would prefer to go through [facility]. TC to [facility] and referral made to Marlene for SN, PT, and OT. Awaiting return response. CM to follow for HHC and increased O2 needs. Email sent to [facility] to verify current order. Pt has been educated on home bound status for HHC. States understanding and denies further questions or concerns at this time. Marc Rachel RN, CM
[2024-04-06] MEDS: clonazePAM 0.5 MG Tablet PO ×2 (17:18→22:15)
[2024-04-06] MEDS: Jantoven 2 MG Tablet PO (17:18)
[2024-04-06 17:20] VITALS: BP 117/83; PULSE 88; RESP 16; TEMP 36.1; O2SAT 100
--- NOTE | 2024-04-06 17:25 | PCM.CONS.C ---
Assessment & Plan Assessment/Plan (1) CHF exacerbation: QUALIFIERS: Heart failure type: systolic Qualified Code(s): I50.23 - Acute on chronic systolic (congestive) heart failure PLAN: Patient has a history of ischemic global dilated cardiomyopathy with a EF in the 20-25% range with significant mitral regurgitation. Is now readmitted again after being in the hospital in November 2019 for requiring aggressive intravenous diuretics. The patient is intolerant of KALEIGH and ARB therapy is intolerant of spironolactone due to gynecomastia and intolerant of metolazone due to diarrhea. The patient has an ICD in place and as of February 2022 to date has not had any ICD firings. I would recommend that we trial him on hydralazine 10 mg 3 times daily with low-dose Imdur 30 mg every morning. Another option would be to add Jardiance 10 mg daily to his medical regimen. I will make these additions and will need to follow his response in the ambulatory setting. 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 I did have a discussion with one of the sons and [id number]-ums who is a nurse today not only about his role as a primary caregiver but also that they need to start discussing end-of-life wishes with the patient. I did offer to meet with the patient and his family in the office at some point in time to further discuss this if they feel that would be of benefit. (2) Hypokalemia: PLAN: Potassium is 3.3 today he is on replacement therapy and this needs to be monitored closely. (3) Atherosclerotic heart disease of [place] coronary artery without angina pectoris: QUALIFIERS: [place] vs. transplanted heart: [place] heart Qualified Code(s): I25.10 - Atherosclerotic heart disease of [place] coronary artery without angina pectoris PLAN: Patient status post remote bypass graft surgery with vein graft to the ramus branch of the lateral circumflex and posterolateral circumflex artery and also vein graft to the marginal branch of the right coronary and a ARIZMENDI to the LAD. He was cathed in May 2021 which showed patent ARIZMENDI to the LAD with collaterals to the distal right as well as a diagonal vessel the SVG to the marginal branch had a high-grade stenosis at the anastomotic site and [place] distal vessel disease. The vein graft to the right was occluded. Currently the patient denies any anginal symptoms. (4) Essential hypertension: PLAN: Blood pressure is adequately controlled on his current medical therapy. I would recommend we try to add low-dose hydralazine and nitrates as part of guideline directed medical therapy for his LV failure. He is intolerant of KALEIGH ARB spironolactone therapy. PLAN: Plan 1. Add hydralazine 10 mg 3 times daily and Imdur 30 mg every morning. 2. Continue with IV drip Lasix. 3. Replace potassium the potassium above 3.5. 4. Add Jardiance 10 mg p.o. daily. 5. Once discharged the patient should follow-up in the [facility] office in 7 to 10 days. 6. If further assistance is needed please feel free to call me. HPI Consult Data Date of Consult: 04/06/24 HPI Narrative Reason for Consultation: Decompensated CHF. HPI Narrative: DARRELL PRIETO, is a 84 M who presents with increasing lower extremity and scrotal edema. The patient has been unsuccessful in outpatient diuresis over the last 48 hours. He was admitted for IV Lasix. The patient did not respond to intermittent boluses and is now been placed on IV infusion at 10 mL/h. Patient reports he has not had a significant amount of output since starting IV infusion a couple hours ago. Patient has a history of an ischemic dilated cardiomyopathy EF known to be in the 20-25% range. Status post ICD implant in 2007 and subsequent generator change in 2016. He also carries a history of an LV mural thrombus in 2020 he has a history of colon cancer with treated with chemotherapy and surgery and follows with Dr. Bradley. Patient's last echo in 2021 revealed LV ejection fraction of 20% the left atrial cavity was moderately dilated there was severe 3+ mitral regurgitation right ventricular systolic pressure estimated 70. Repeat echo done on this admission showed an ejection fraction estimated 25% with severe global LV dysfunction and 2+ MR. Patient's BUN was 24 creatinine 1.01 this morning with a potassium of 3.3. The BNP was 2945 back in November 2023 it was 1493. The patient denies any chest discomfort or neck pain. He denies any syncope or near syncope. His ICD last interrogation February 03, 2024 showed 1 mode switching episode which was determined to be atrial flutter for 14 hours. This occurred on November 18, 2023 the patient is on warfarin in his home. He had no VT or VF since February 2022. He is 21% ventricular paced and 5% atrially paced and a 2.5-year life expectancy on his battery. The patient's son and [id number] who is an RN were in the room with him. I did discuss with them the patient's frequent admissions for decompensation of his heart failure and the multiple medications that we have tried to utilize for diuresis. It does appear given these frequent admissions and overall debilitation that he is coming close to the end of life. I did discuss this with the son and nlevdqpr-lh-iqx as well as the patient that we should be considering what his expectations are for end-of-life concerning palliative/hospice care or aggressive invasive management at the end of life. The patient has been intolerant of metolazone due to diarrhea in the past. He is intolerant of spironolactone due to gynecomastia intolerant of KALEIGH and ARB therapy for an uncertain etiology. 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 ventricular) mural thrombus Wears glasses History of steroid therapy Arthritis Kidney stone Back pain Stroke/cerebrovascular accident History of hiatal hernia Non-smoker History of pain when walking Osteoarthritis Atrial fibrillation Personal history of colonic polyps Personal history of colon cancer, stage III Colon cancer History of stroke Hyperlipidemia Home Medications ?Medication ?Instructions ?Recorded ?Last Taken ?Type clonazepam 0.5 mg tablet (Klonopin) 0.5 mg PO TID anxiety 08/11/13 12/07/22 History ascorbic acid (vitamin C) 500 mg 1,000 mg PO DAILY@0800 supplement 07/11/15 12/07/22 History tablet aspirin 81 mg tablet,delayed 81 mg PO QHS heart health 07/11/15 12/06/22 History release vit C 250 mg-vit E 90 mg-zinc 40 1 tab PO BID eye vitamin 02/24/21 12/07/22 History mg-copper 1 [id number] capsule (PreserVision AREDS-2) cholecalciferol (vitamin D3) 125 125 mcg PO DAILY supplement 03/05/23 Unknown History mcg (5,000 unit) tablet warfarin 3 mg tablet 3 mg PO 4XW #60 tabs 05/13/23 Unknown Rx atorvastatin 10 mg tablet 10 mg PO QHS #90 tabs 09/06/23 Unknown Rx tamsulosin 0.4 mg capsule 0.4 mg PO QHS Prostate 10/13/23 Unknown History metolazone 2.5 mg tablet 2.5 mg PO .COMPLEX #30 tabs 11/22/23 Unknown Rx carvedilol 25 mg tablet 12.5 mg (1/2 x 25 mg) PO BID #180 01/12/24 Unknown Rx tabs furosemide 40 mg tablet (Lasix) 40 mg PO BID #360 tabs 02/09/24 Unknown Rx warfarin 2 mg tablet 2 mg PO .COMPLEX #90 TABLETS 02/17/24 Unknown Rx potassium chloride 20 mEq 20 meq PO BID supplement 04/06/24 Unknown History tablet,extended release Allergy/AdvReac Type Severity Reaction Status Date / Time amiodarone AdvReac Severe Severe Verified 04/05/24 09:21 urinary retention requiring catheter KALEIGH Inhibitors AdvReac Other Verified 04/05/24 09:21 hydrochlorothiazide AdvReac Other Verified 04/05/24 09:21 levofloxacin (From Levaquin) AdvReac aching Verified 04/05/24 09:21 legs trouble walking spironolactone AdvReac Other Verified 04/05/24 09:21 Family History Father Hypertension Heart disease Surgical History History of left heart catheterization History of implantable cardiac defibrillator (ICD) (02/10/17) H/O coronary artery bypass surgery (08/27/05) History of coronary artery stent placement (05/27/21) History of ankle fusion History of right knee joint replacement History of colonoscopy (2016) History of left hip replacement History of cholecystectomy Hx of cataract surgery History of colon surgery Social History household members: spouse Smoking Status: Never smoker alcohol intake: never substance use type: does not use caffeine: Yes Type: coffee Number of servings: 1 ROS Constitutional Constitutional: Reports as per HPI Eyes Eyes: Reports systems reviewed and no addt'l complaints, except as documented ENT HEENT: Reports systems reviewed and no addt'l complaints, except as documented Cardiovascular Cardiovascular: Reports as per HPI Respiratory/Chest Respiratory/Chest: Reports as per HPI Gastrointestinal Gastrointestinal: Reports as per HPI Genitourinary Genitourinary: Reports as per HPI Musculoskeletal Musculoskeletal: Reports as per HPI Integumentary Integumentary: Reports systems reviewed and no addt'l complaints, except as documented Neurologic Neurologic: Reports systems reviewed and no addt'l complaints, except as documented Psychiatric Psychiatric: Reports systems reviewed and no addt'l complaints, except as documented Endocrine Endocrinology: Reports systems reviewed and no addt'l complaints, except as documented Hematologic/Lymphatic Hematologic/Lymphatic: Reports systems reviewed and no addt'l complaints, except as documented Allergic/Immunologic Allergic/Immunologic: Reports systems reviewed and no addt'l complaints, except as documented Physical Exam Const alert and oriented x3 HEENT normocephalic Eyes EOMs intact bilaterally Neck no JVD Resp normal respiratory effort Auscultation: rales bilateral base Cardio Rate: regular rate Rhythm: regular rhythm Heart Sounds: S1 normal, S2 normal, gallop S3 gallop and murmur systolic I/ soft; Negative for click GI non-tender and no bruits Narrative: Significant scrotal swelling noted. Extremity General Extremity: edema bilateral lower extremity Details: moderate Skin Skin Narrative: Noted anterior bay erythematous areas with slight weeping on the left lower extremity consistent with significant edema. Psych mental status grossly normal Risk Stratification Risk Stratification Applicable: No Charges/Coding Visit Charges Inpatient E&M: 47111 Init Hosp L3 Objective Data Vital Signs: Vital Signs Temp Pulse Resp BP Pulse Ox O2 Del Method O2 Flow Rate 96.6 F L 69 16 107/95 H 97 Nasal Cannula 2 04/06/24 10:20 04/06/24 10:20 04/06/24 10:20 04/06/24 10:20 04/06/24 10:20 04/06/24 14:25 04/06/24 14:25 Oxygen Flow Rate (L/min) 2 Oxygen Delivery Method Nasal Cannula Weight: 179 lb 0.246 oz Body Mass Index (BMI) 31.7 Intake & Output: Intake and Output for Last 24 Hours 04/04/24 04/05/24 04/06/24 23:59 23:59 23:59 Intake Total 480 / 480 Output Total 350 / 350 Balance 130 / 130 Lab / Micro Data Attestation: I reviewed the patient's lab results. 04/05/24 09:35 04/06/24 06:37 Labs: Laboratory Results - last 24 hr 04/06/24 06:37: PT 27.1 H, INR 2.5, Sodium 141, Potassium 3.3 L, Chloride 98, Carbon Dioxide 38.0 H, Anion Gap 5, BUN 24 H, Creatinine 1.01, Estim Creat Clear Calc 52.22, Est GFR (MDRD) Af Amer 91, Est GFR (MDRD) Non-Af 75, BUN/Creatinine Ratio 23.8 H, Glucose 108 H, Calcium 8.9 Rhythm Strip Rhythm Strip: Sinus Rhythm Rate: 70 Cardiology Labs/Tests 04/06/24 06:37: PT 27.1 H, INR 2.5, Sodium 141, Potassium 3.3 L, Chloride 98, Carbon Dioxide 38.0 H, Anion Gap 5, BUN 24 H, Creatinine 1.01, Est GFR (MDRD) Af Amer 91, Est GFR (MDRD) Non-Af 75, BUN/Creatinine Ratio 23.8 H, Glucose 108 H, Calcium 8.9 Rhythm: EKG: ECHO: Stress Test: Cardiac Cath: PCI: CT Surgery: Holter monitor: EPS: PPM: CXR: Chest CT Scan:
[2024-04-06 20:00] VITALS: BP 115/67; PULSE 76; RESP 16; TEMP 36.5; O2SAT 99
[2024-04-06] MEDS: Tamsulosin HCl 0.4 MG Capsule PO (22:15)
[2024-04-06] MEDS: Carvedilol 12.5 MG Tablet PO (22:15)
[2024-04-06] MEDS: Atorvastatin Calcium 10 MG Tablet PO (22:15)
[2024-04-06] MEDS: Aspirin E.C. 81 MG Tablet PO (22:16)
[2024-04-06 22:21] VITALS: BP 120/73; PULSE 75
[2024-04-06] MEDS: hydrALAZINE 10 MG Tablet PO (22:21)
[2024-04-07] VITALS (9 sets, daily range): BP systolic 99–107; BP diastolic 60–80; PULSE 60–80; RESP 14–16; TEMP 36.4–36.6; O2SAT 95–98; BMI 29.9
[2024-04-07] MEDS: clonazePAM 0.5 MG Tablet PO ×3 (06:11→21:37)
[2024-04-07 07:11] LABS: International Normalized Ratio 2.4; Prothrombin Time (Protime)PT. 26.3 SECONDS (11.7-14.9)
--- NOTE | 2024-04-07 07:57 | PN.CARD_ITS ---
Subjective Subjective Patient is resting comfortably in the bed I woke him this morning. He was sleeping soundly at 30 degrees. He denies any shortness of breath reports that he slept fairly well. The patient did not receive the hydralazine last night due to a blood pressure of 99. We will change the hold parameters. Patient's I's and O's are -800 cc on the IV Lasix drip. Objective Data Vital Signs: Vital Signs Temp Pulse Resp BP Pulse Ox O2 Del Method O2 Flow Rate 97.6 F L 61 16 99/80 95 Nasal Cannula 2 04/07/24 03:00 04/07/24 06:10 04/07/24 03:00 04/07/24 06:10 04/07/24 03:00 04/07/24 03:38 04/07/24 03:38 Oxygen Flow Rate (L/min) 2 Oxygen Delivery Method Nasal Cannula Weight: 169 lb 5.04 oz Body Mass Index (BMI) 29.9 Intake & Output: Intake and Output for Last 24 Hours 04/05/24 04/06/24 04/07/24 23:59 23:59 23:59 Intake Total 480 / 480 680 / 800 300 / 300 Output Total 350 / 350 1225 / 1225 Balance 130 / 130 680 / 375 -925 / -925 Lab / Micro Data Attestation: I reviewed the patient's lab results. 04/05/24 09:35 04/06/24 06:37 Labs: Laboratory Results - last 24 hr 04/07/24 06:31: PT 26.3 H, INR 2.4 Rhythm Strip Rhythm Strip: Intermittently atrial paced rhythm with [place] ventricular conduction. Rate: 65 Ectopy: PVC(s) Cardiology Labs/Tests 04/07/24 06:31: PT 26.3 H, INR 2.4 Rhythm: EKG: ECHO: Stress Test: Cardiac Cath: PCI: CT Surgery: Holter monitor: EPS: PPM: CXR: Chest CT Scan: Physical Exam Const alert and oriented x3 HEENT normocephalic Eyes EOMs intact bilaterally Neck Neck Narrative: Thick neck difficult to ascertain JVD. Resp normal respiratory effort Auscultation: rales bilateral lower Cardio Rate: regular rate Rhythm: abnormal rhythm ectopic beats Heart Sounds: S1 normal, S2 normal, gallop S3 gallop and murmur systolic I/ soft; Negative for click Extremity General Extremity: edema bilateral lower extremity Details: moderate Neuro Neuro Narrative: Alert and oriented x 3 Psych mental status grossly normal Assessment & Plan Assessment/Plan (1) CHF exacerbation: QUALIFIERS: Heart failure type: systolic Qualified Code(s): I 50.23 - Acute on chronic systolic (congestive) heart failure PLAN: Patient appears to be diuresing well on the IV Lasix drip. Blood work from this morning is pending at this time. Potassium needs to be replaced to keep it above 3.5. I will change the hold parameters on the hydralazine and nitrates to less than 90 systolic. Would recommend continuing his current Coreg dose. Adding the hydralazine and nitrates and we will follow-up with him in the office in 7 to 10 days after discharge. I did discuss the difficulty in titrating medications against his blood pressure in response due to his severe LV dysfunction and reaching end-stage. I will set up a meeting with the family to discuss end-of-life issues once he is reevaluated in the office in 7 to 10 days we will set that meeting up to follow. PLAN: Plan 1. Titrate the hydralazine 10 mg 3 times daily and Imdur 30 mg daily to blood pressure above 90 systolic. 2. Would continue IV Lasix for at least another 24 hours. 3. Replace potassium as needed. 4. Set up an appointment with Juan galvan the [facility] in 7 to 10 days after discharge and then to follow-up with Dr. Castro in 1 month after that visit. 5. The family will need to decide on how to assist him with his care of his who is suffering with significant dementia. I do not believe he is going to be able to continue to be the primary caregiver long-term or even in the near future. 6. If further assistance is needed prior to discharge please call me I will be available by phone but will not be in the hospital. Dr. Jaramillo is covering the hospital. Charges/Coding Visit Charges Inpatient E&M: 00790 Subs Hosp L2
[2024-04-07 08:07] LABS: Anion Gap 6 (5-15); BUN 20 mg/dL (7-18); BUN/Creat Ratio 22.2 RATIO (10-20); Calcium,Total 8.9 mg/dL (8.5-10.1); Chloride 96 mmol/L (98-107); EST Glomerular Filtration Rate 85 mL/min (>60); Est Glom Filt Rate - Afr Amer 103 mL/min (>60); Estimated Creatinine Clearance 57.05 ml/min; Glucose 112 mg/dL (74-106); Sodium Level 143 mmol/L (136-145)
--- NOTE | 2024-04-07 08:38 | PN.HOSP_ITS ---
Reason for Visit Reason for Visit: Diagnoses Hypokalemia (04/05/24) Essential (primary) hypertension (04/05/24) Atherosclerotic heart disease of [place] coronary artery without angina pectoris (04/05/24) Unspecified systolic (congestive) heart failure (04/05/24) Acute on chronic systolic (congestive) heart failure (04/05/24) Subjective Subjective Feeling well. Objective Data Objective Data Vital Signs: Vital Signs Temp Pulse Resp BP Pulse Ox O2 Del Method O2 Flow Rate 36.4 C L 61 16 99/80 95 Nasal Cannula 2 04/07/24 03:00 04/07/24 06:10 04/07/24 03:00 04/07/24 06:10 04/07/24 03:00 04/07/24 03:38 04/07/24 03:38 Oxygen Flow Rate (L/min) 2 Oxygen Delivery Method Nasal Cannula Weight: 76.8 kg Body Mass Index (BMI) 29.9 Intake & Output: Intake and Output for Last 24 Hours 04/05/24 04/06/24 04/07/24 23:59 23:59 23:59 Intake Total 480 / 480 680 / 800 300 / 300 Output Total 350 / 350 1225 / 1225 Balance 130 / 130 680 / 375 -925 / -925 Lab / Micro Data 04/05/24 09:35 04/07/24 06:31 Labs: Laboratory Results - last 24 hr 04/07/24 06:31: PT 26.3 H, INR 2.4, Sodium 143, Potassium 3.0 L, Chloride 96 L, Carbon Dioxide 41.0 H, Anion Gap 6, BUN 20 H, Creatinine 0.90, Estim Creat Clear Calc 57.05, Est GFR (MDRD) Af Amer 103, Est GFR (MDRD) Non-Af 85, BUN/Creatinine Ratio 22.2 H, Glucose 112 H, Calcium 8.9 Rhythm Strip Rhythm Strip: Intermittently atrial paced rhythm with [place] ventricular conduction. Rate: 65 Ectopy: PVC(s) Physical Exam Const alert and no apparent distress HEENT head/scalp atraumatic and moist oral mucous membranes Resp normal respiratory effort, no retractions, no use of accessory muscles and clear to auscultation bilaterally Cardio regular rate, regular rhythm, S1 normal heart sound and S2 normal heart sound GI normal to inspection, nondistended, normoactive bowel sounds, soft to palpation, non-tender and non-distended Extremity Extremity Narrative: Decreased lower extremity though still edematous. Wrinkling of the skin around the ankles noted. Neuro Sensorium / Orientation: awake Psych affect normal Assessment & Plan Assessment/Plan (1) HFrEF (heart failure with reduced ejection fraction): PLAN: acute HFrEF No KALEIGH-/ARB due to reaction. No spironolactone given gyenocomastia. Fluid restrict 1.5 liters. Continue carvedilol Echo shows an EF of 25% with severe global hypokinesis of the left ventricle, left atrium mildly enlarged, right atrium mildly enlarged. Patient was on IV furosemide bolus dosing. Will place the patient on a furosemide drip. Will have cardiology see and provide additional input Optimizing therapy with hydralazine and isosorbide. PLAN: Plan Chronic conditions: * CAD: continue ASA, atorvastatin. * afib: on warfarin VTE prophylaxis: not indicated as he is on warfarin. Code status: Full. DW family at bedside. Charges/Coding Visit Charges Inpatient E&M: 95942 Subs Hosp L2
[2024-04-07] MEDS: hydrALAZINE 10 MG Tablet PO ×3 (09:06→21:32)
[2024-04-07] MEDS: Multivitamin (Healthy Eyes) Capsule 1 CAP PO ×2 (09:07→21:33)
[2024-04-07] MEDS: Empagliflozin 10 MG Tablet PO (09:07)
[2024-04-07] MEDS: Ascorbic Acid 500 MG Tablet 1000 MG PO (09:07)
[2024-04-07] MEDS: Carvedilol 12.5 MG Tablet PO ×2 (09:07→21:32)
[2024-04-07] MEDS: Cholecalciferol (Vit D3) 125 MCG CAPSULE (5,000 UNITS) PO (09:08)
[2024-04-07] MEDS: Isosorbide Mononitrate 30 MG Tablet PO (12:30)
[2024-04-07] MEDS: Potassium Chloride Oral Tablet 20 MEQ 40 MEQ PO ×2 (12:30→16:56)
--- NOTE | 2024-04-07 15:17 | CASEMGMT ---
RN CM updated that patient will discharge over the weekend. RN CM updated [facility], start of care planned for Wednesday. Discharge plan updated, green sheet placed on chart.
[2024-04-07] MEDS: Furosemide 500 MG in Empty Viaflex 50 mL 1 EACH CONT INF (16:26)
[2024-04-07] MEDS: Jantoven 2 MG Tablet PO (16:55)
[2024-04-07] MEDS: Aspirin E.C. 81 MG Tablet PO (21:32)
[2024-04-07] MEDS: Tamsulosin HCl 0.4 MG Capsule PO (21:33)
[2024-04-07] MEDS: Atorvastatin Calcium 10 MG Tablet PO (21:33)
[2024-04-08 03:00] VITALS: BP 99/55; PULSE 63; RESP 16; TEMP 36.4; O2SAT 94
[2024-04-08 04:53] VITALS: BMI 30.1
[2024-04-08 04:54] LABS: International Normalized Ratio 2.3; Prothrombin Time (Protime)PT. 24.9 SECONDS (11.7-14.9)
[2024-04-08 05:55] VITALS: BP 100/57; PULSE 62
[2024-04-08] MEDS: hydrALAZINE 10 MG Tablet PO ×2 (05:55→13:51)
[2024-04-08 06:08] LABS: BUN 21 mg/dL (7-18); BUN/Creat Ratio 21.3 RATIO (10-20); Calcium,Total 8.9 mg/dL (8.5-10.1); Carbon Dioxide > 45.0 mmol/L (21.0-32.0); Chloride 94 mmol/L (98-107); Creatinine, Serum 0.99 mg/dL (0.70-1.30); EST Glomerular Filtration Rate 77 mL/min (>60); Est Glom Filt Rate - Afr Amer 93 mL/min (>60); Estimated Creatinine Clearance 51.99 ml/min; Glucose 117 mg/dL (74-106); Potassium 3.5 mmol/L (3.5-5.1); Sodium Level 142 mmol/L (136-145)
[2024-04-08 08:45] VITALS: BP 103/54; PULSE 67; RESP 15; TEMP 36.1; O2SAT 94
[2024-04-08] MEDS: Cholecalciferol (Vit D3) 125 MCG CAPSULE (5,000 UNITS) PO (08:47)
[2024-04-08] MEDS: Empagliflozin 10 MG Tablet PO (08:47)
[2024-04-08] MEDS: Ascorbic Acid 500 MG Tablet 1000 MG PO (08:47)
[2024-04-08] MEDS: Potassium Chloride Oral Tablet 20 MEQ 40 MEQ PO ×2 (08:48→11:43)
[2024-04-08] MEDS: Multivitamin (Healthy Eyes) Capsule 1 CAP PO (08:48)
--- NOTE | 2024-04-08 09:44 | PN.HOSP_ITS ---
Reason for Visit Reason for Visit: Diagnoses Hypokalemia (04/05/24) Essential (primary) hypertension (04/05/24) Atherosclerotic heart disease of [place] coronary artery without angina pectoris (04/05/24) Unspecified systolic (congestive) heart failure (04/05/24) Acute on chronic systolic (congestive) heart failure (04/05/24) Subjective Subjective Improved edema. Objective Data Objective Data Vital Signs: Vital Signs Temp Pulse Resp BP Pulse Ox O2 Del Method O2 Flow Rate 36.1 C L 67 15 103/54 L 94 Nasal Cannula 2 04/08/24 08:45 04/08/24 08:45 04/08/24 08:45 04/08/24 08:45 04/08/24 08:45 04/08/24 08:45 04/08/24 08:45 Oxygen Flow Rate (L/min) 2 Oxygen Delivery Method Nasal Cannula Weight: 77.2 kg Body Mass Index (BMI) 30.1 Intake & Output: Intake and Output for Last 24 Hours 04/06/24 04/07/24 04/08/24 23:59 23:59 23:59 Intake Total 680 / 800 328.75 / 448.75 300 / 300 Output Total 1225 / 2175 1625 / 1625 Balance 680 / 375 -896.25 / -1726.25 -1325 / -1325 Lab / Micro Data 04/05/24 09:35 04/08/24 03:55 Labs: Laboratory Results - last 24 hr 04/08/24 03:55: PT 24.9 H, INR 2.3, Sodium 142, Potassium 3.5, Chloride 94 L, C arbon Dioxide > 45.0 H*, Anion Gap TNP, BUN 21 H, Creatinine 0.99, Estim Creat Clear Calc 51.99, Est GFR (MDRD) Af Amer 93, Est GFR (MDRD) Non-Af 77, B UN/Creatinine Ratio 21.3 H, Glucose 117 H, Calcium 8.9, Magnesium 2.0 Rhythm Strip Rhythm Strip: Intermittently atrial paced rhythm with [place] ventricular conduction. Rate: 65 Ectopy: PVC(s) Physical Exam Const alert and no apparent distress Resp normal respiratory effort, no retractions, no use of accessory muscles and clear to auscultation bilaterally Cardio regular rate, regular rhythm, S1 normal heart sound and S2 normal heart sound GI normal to inspection, nondistended, normoactive bowel sounds, soft to palpation, non-tender and non-distended Extremity Extremity Narrative: Bilateral lower extremity edema improved from even the day before with some increased wrinkling of the skin. Assessment & Plan Assessment/Plan (1) HFrEF (heart failure with reduced ejection fraction): PLAN: acute HFrEF No KALEIGH-/ARB due to reaction. No spironolactone given gyenocomastia. Fluid restrict 1.5 liters. Daily weights. Continue carvedilol Echo shows an EF of 25% with severe global hypokinesis of the left ventricle, left atrium mildly enlarged, right atrium mildly enlarged. Patient was on IV furosemide bolus dosing. Will place the patient on a furosemide drip. Will have cardiology see and provide additional input Optimizing therapy with hydralazine and isosorbide. PLAN: Plan Chronic conditions: * CAD: continue ASA, atorvastatin. * afib: on warfarin VTE prophylaxis: not indicated as he is on warfarin. Code status: Full. DW family at bedside. Discharge home with home health care. The patient is unsafe to use a cane and requires a walker for ambulation in the home and the community.
[2024-04-08] MEDS: Isosorbide Mononitrate 30 MG Tablet PO (11:43)
--- NOTE | 2024-04-08 12:06 | CASEMGMT ---
Pt family requested to speak with SONU MORENO. Pt would like a walker to go home with and asked if PT could work with pt before being DC. Pt requested [employer] for DME needs. SONU MORENO spoke with hospitalist, agreeable to ordering PT and obtained script for walker. Order placed for PT to see pt and called PT number to ask PT to see pt. SONU MORENO delivered walker, pt signed consignment form, SONU MORENO provided pt with a copy of consignment form. Pt denies any additional questions or concerns at this time. [facility] via [facility]. Order form placed in pt chart.
[2024-04-08 13:51] VITALS: PULSE 72
[2024-04-08] MEDS: clonazePAM 0.5 MG Tablet PO (13:53)
[2024-04-08 14:45] VITALS: BP 106/62; PULSE 72; RESP 16; TEMP 36.2; O2SAT 95
--- NOTE | 2024-04-08 14:56 | PCM.DC.SUM ---
Providers Date of Admission: 04/05/24 Primary Care Physician: Dr. Handy Beltran, Consultations 04/06/24 10:07 Consult: Cardiology Routine Consulting Provider: Dutch Castro Reason for Consult: CHF EMERGENT Consult: No MD Notified: Yes Date Notified: 04/06/24 Time Notified: 10:07 Method of Notification: Text Reason For Visit: CHF EX Diagnosis Discharge Diagnosis (1) HFrEF (heart failure with reduced ejection fraction): Status: Resolved Code(s): I50.20 - Unspecified systolic (congestive) heart failure Plan: acute HFrEF No KALEIGH-/ARB due to reaction. No spironolactone given gyenocomastia. Fluid restrict 1.5 liters. Daily weights. Continue carvedilol Echo shows an EF of 25% with severe global hypokinesis of the left ventricle, left atrium mildly enlarged, right atrium mildly enlarged. Patient was on IV furosemide bolus dosing. Will place the patient on a furosemide drip. Will have cardiology see and provide additional input Optimizing therapy with hydralazine and isosorbide. Plan Chronic conditions: CAD: continue ASA, atorvastatin. afib: on warfarin VTE prophylaxis: not indicated as he is on warfarin. Code status: Full. DW family at bedside. Discharge home with home health care. The patient is unsafe to use a cane and requires a walker for ambulation in the home and the community. Medications at Discharge Home Medications clonazepam 0.5 mg tablet (Klonopin) 0.5 mg PO TID anxiety 08/11/13 ascorbic acid (vitamin C) 500 mg tablet 1,000 mg PO DAILY@0800 supplement 07/11/15 aspirin 81 mg tablet,delayed release 81 mg PO QHS heart health 07/11/15 vit C 250 mg-vit E 90 mg-zinc 40 mg-copper 1 in-inbfli-nrnfzz capsule (PreserVision AREDS-2) 1 tab PO BID eye vitamin 02/24/21 cholecalciferol (vitamin D3) 125 mcg (5,000 unit) tablet 125 mcg PO DAILY supplement 03/05/23 warfarin 3 mg tablet 3 mg PO 4XW #60 tabs 05/13/23 atorvastatin 10 mg tablet 10 mg PO QHS #90 tabs 09/06/23 tamsulosin 0.4 mg capsule 0.4 mg PO QHS Prostate 10/13/23 carvedilol 25 mg tablet 12.5 mg (1/2 x 25 mg) PO BID #180 tabs 01/12/24 warfarin 2 mg tablet 2 mg PO .COMPLEX #90 TABLETS 02/17/24 potassium chloride 20 mEq tablet,extended release 20 meq PO BID supplement 04/06/24 empagliflozin 10 mg tablet (Jardiance) 10 mg PO DAILY #30 tabs 04/08/24 furosemide 40 mg tablet (Lasix) 40 mg PO BID #360 tabs 04/08/24 hydralazine 10 mg tablet 10 mg PO TID #90 tabs 04/08/24 isosorbide mononitrate 30 mg tablet,extended release 24 hr 30 mg PO DAILY #30 tabs 04/08/24 Hospital Course Operations None Procedures 2-D Echocardiogram Summary of Care Provided Minutes Spent on Discharge: 45 Hospital Course: Patient presents with increased lower extremity edema and scrotal edema. Patient was found to be in CHF and weight has steadily increased. Patient initially started on bolus dosing of furosemide but was changed over to furosemide drip. Patient diuresed very well and was negative about 14 L. Patient will resume his furosemide dosing he was taking at home. Patient was seen in consultation by cardiology who is added hydralazine and isosorbide and empagliflozin. Patient advised to the limit his fluid intake further from up to 2 L to only now up to 1.5 L/day. Patient also advised to check his weight daily. Weight / BMI Weight Weight: 77.2 kg Body Mass Index (BMI) 30.1 ABG / Lab / Microbiology Data 04/05/24 09:35 04/08/24 03:55 Laboratory: Laboratory Results - last 24 hr 04/08/24 03:55: PT 24.9 H, INR 2.3, Sodium 142, Potassium 3.5, Chloride 94 L, Carbon Dioxide > 45.0 H*, Anion Gap TNP, BUN 21 H, Creatinine 0.99, Estim Creat Clear Calc 51.99, Est GFR (MDRD) Af Amer 93, Est GFR (MDRD) Non-Af 77, BUN/Creatinine Ratio 21.3 H, Glucose 117 H, Calcium 8.9, Magnesium 2.0 D/C Instructions Discharge Diet: 2000 mg Sodium Diet and - (1.5 L/day) Meaningful Use Info Meaningful Use Meaningful Use Diagnoses (Choose all that apply): CHF CHF KALEIGH/ARB ordered at discharge?: No Reason KALEIGH/ARB not ordered?: Allergy Documented LVEF (%): 25 Ischemic Stroke Statin Dosing Therapy Reference: STATIN DOSE THERAPY REFERENCE: * Patients > 75 years receive moderate or high dose statin therapy. * Patients 75 years or YOUNGER should receive HIGH intensity statin dose unless contraindicated. You will be required to document reason for non-treatment if statin daily dose does not meet guidelines. HIGH DOSE STATIN THERAPY DAILY Atorvastatin > than or = to 40 mg Rosuvastatin > than or = to 20 mg Amlodipine + Atorvastatin > than or = to 2.5/40 mg Ezetimibe + Simvastatin 10/80 mg Simvastatin 80mg Discharge Plan Admission Admit Date/Time: 04/05/24 10:34 Primary Reason for Your Visit: Heart failure Attending Provider: Fercho Tristan Primary Care Provider: Handy Beltran Consulting Providers: Dutch Castro Instructions Additional Instructions / Restrictions: He had worsening of your heart failure and you did well with the Lasix drip. Will resume your previous dosing of Lasix but also will be added Jardiance, Imdur and hydralazine. I also like for you to check your weight daily and keep a record of those weights. If your weight increases more than 2 pounds in 1 day or 3 pounds in 1 week take an additional 40 mg of Lasix. Discharge Orders/Prescriptions Prescriptions: New hydralazine 10 mg Tablet 10 mg PO TID Qty: 90 0RF isosorbide mononitrate 30 mg Tablet Extended Release 24 Hr 30 mg PO DAILY Qty: 30 0RF Jardiance 10 mg Tablet 10 mg PO DAILY Qty: 30 0RF Continued cholecalciferol (vitamin D3) 125 mcg (5,000 unit) tablet 125 mcg PO DAILY clonazepam [Klonopin] 0.5 MG tablet 0.5 mg PO TID Patient Comments: ANXIETY aspirin 81 MG tablet 81 mg PO QHS Patient Comments: HEART ascorbic acid (vitamin C) 500 MG tablet 1,000 mg PO DAILY@0800 Patient Comments: SUPPLEMENT PreserVision AREDS-2 250-90-40-1 mg Capsule 1 tab PO BID potassium chloride 20 mEq tablet extended release 20 meq PO BID furosemide [Lasix] 40 mg tablet 40 mg PO BID Qty: 360 3RF Rx Instructions: 80 mg in the morning and then 40 mg in the evening. Take an additional dose of 40 mg if your weight increases more than 2 pounds in 1 day or 3 pounds in 1 week. warfarin 3 mg tablet 3 mg PO 4XW Qty: 60 3RF Protocol: Dose Management Condition: Wednesday Dose/Route: 3 mg Instruction: 1 x 3 mg tablet Condition: Wednesday Dose/Route: 2 mg Instruction: 1 x 2 mg tablet Condition: Wednesday Dose/Route: 2 mg Instruction: 1 x 2 mg tablet Condition: Wednesday Dose/Route: 2 mg Instruction: 1 x 2 mg tablet Condition: Dose/Route: 2 mg Instruction: 1 x 2 mg tablet Condition: Wednesday Dose/Route: 2 mg Instruction: 1 x 2 mg tablet Condition: Wednesday Dose/Route: 3 mg Instruction: 1 x 3 mg tablet Protocol Text: Adjustment Start Date: Wednesday04/05/24 INR Value: 3.0 INR Date: 04/05/24 Recheck Date: 04/12/24 Patient Comments: Pt takes Wednesday, Wednesday, Wednesday Rx Instructions: Use as directed atorvastatin 10 mg tablet 10 mg PO QHS Qty: 90 3RF tamsulosin 0.4 mg capsule 0.4 mg PO QHS carvedilol 25 mg tablet 12.5 mg PO BID Qty: 180 3RF warfarin 2 mg tablet 2 mg PO .COMPLEX Qty: 90 4RF Protocol: Dose Management Condition: Wednesday Dose/Route: 3 mg Instruction: 1 x 3 mg tablet Condition: Wednesday Dose/Route: 2 mg Instruction: 1 x 2 mg tablet Condition: Wednesday Dose/Route: 2 mg Instruction: 1 x 2 mg tablet Condition: Wednesday Dose/Route: 2 mg Instruction: 1 x 2 mg tablet Condition: Dose/Route: 2 mg Instruction: 1 x 2 mg tablet Condition: Wednesday Dose/Route: 2 mg Instruction: 1 x 2 mg tablet Condition: Wednesday Dose/Route: 3 mg Instruction: 1 x 3 mg tablet Protocol Text: Adjustment Start Date: Wednesday04/05/24 INR Value: 3.0 INR Date: 04/05/24 Recheck Date: 04/12/24 Patient Comments: Pt states he takes Wednesday, Wednesday, , Wednesday & Wednesday Rx Instructions: 2 mg orally daily Wed-Wed and 3mg Wed and Sundays; or use as directed; Discontinued metolazone 2.5 mg tablet 2.5 mg PO .COMPLEX Qty: 30 3RF Rx Instructions: 2.5 mg orally q Wednesday and Wednesday: take 30 minutes before first morning dose of Furosemide; Referrals / Follow Up: Handy Beltran DO [Primary Care Provider] - Within 2 Weeks Juan Chilel NP, [employer] [Med Staff - [facility] Practice [facility]] - 04/12/24 4:00 pm Disposition Disposition (needs filled in before D/C Order can be placed): Home Health Service Charges/Coding Visit Charges Inpatient E&M: 63276 Disch Hosp >30min
== END 2024-04-08 16:49 | disposition home health service (06) | DRG 291 ==
LOC: ED 10:10 → PCU 11:15
PROVIDERS: Internal Medicine; Emergency Provider Emergency Medicine; PCP Student in an Organized Health Care Education/Training Program
DX: I11.0 Hypertensive heart disease with heart failure (principal); I50.23 Acute on chronic systolic (congestive) heart failure; E78.5 Hyperlipidemia, unspecified; Z79.01 Long term (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 of 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; I48.91 Unspecified atrial fibrillation; I25.5 Ischemic cardiomyopathy; I45.10 Unspecified right bundle-branch block; E87.6 Hypokalemia; I25.10 Atherosclerotic heart disease of native coronary artery without angina pectoris; Z79.82 Long term (current) use of aspirin; R09.02 Hypoxemia; Z95.0 Presence of cardiac pacemaker; N50.89 Other specified disorders of the male genital organs; Z95.5 Presence of coronary angioplasty implant and graft; Z85.038 Personal history of other malignant neoplasm of large intestine
CPT/HCPCS: 36415; 71046; 80048; 83735; 83880; 84484; 85025; 85610; 85730; 90662; 93005; 93306; 97162; 97166; 99285; Q9957; A4216; C8929; J1940

== ENCOUNTER → 2024-04-12 | Outpatient (CLI) | payer MEDICARE, SELFPAY ==
[2024-04-12 17:29] LABS: Anion Gap 4 (5-15); BUN 22 mg/dL (7-18); BUN/Creat Ratio 19.5 RATIO (10-20); Calcium,Total 9.8 mg/dL (8.5-10.1); Chloride 97 mmol/L (98-107); Creatinine, Serum 1.13 mg/dL (0.70-1.30); EST Glomerular Filtration Rate 66 mL/min (>60); Est Glom Filt Rate - Afr Amer 80 mL/min (>60); Glucose 116 mg/dL (74-106); Potassium 3.9 mmol/L (3.5-5.1); Sodium Level 139 mmol/L (136-145)
== END | disposition home or self-care (01) ==
LOC: LAB 17:01
PROVIDERS: PCP Student in an Organized Health Care Education/Training Program; Referring Provider Nurse Practitioner Family; Visit Provider Nurse Practitioner Family
DX: I47.29 Other ventricular tachycardia (principal); I11.0 Hypertensive heart disease with heart failure; I50.23 Acute on chronic systolic (congestive) heart failure; Z95.1 Presence of aortocoronary bypass graft; Z95.810 Presence of automatic (implantable) cardiac defibrillator
CPT/HCPCS: 36415; 80048

== ENCOUNTER 2024-04-19 12:53 | Outpatient (CLI) | payer MEDICARE, SELFPAY ==
[2024-04-19 13:09] VITALS: BP 96/50; PULSE 64; RESP 16; TEMP 35.9; O2SAT 95
[2024-04-19] MEDS: Furosemide 40 MG/4 ML Vial IV (13:19)
[2024-04-19] MEDS: 0.9% NaCl Peripheral Flush Adult/Peds IV ×2 (13:20→13:33)
[2024-04-19 13:31] VITALS: BP 100/54; PULSE 61; RESP 16
== END 2024-04-19 23:59 | disposition home or self-care (01) ==
LOC: MEDOUTP 12:54
PROVIDERS: PCP Student in an Organized Health Care Education/Training Program; Referring Provider Internal Medicine Cardiovascular Disease; Visit Provider Internal Medicine Cardiovascular Disease
DX: I50.42 Chronic combined systolic (congestive) and diastolic (congestive) heart failure (principal)
CPT/HCPCS: 96374; A4216; J1940

== ENCOUNTER 2024-04-20 12:53 | Outpatient (CLI) | payer MEDICARE, SELFPAY ==
[2024-04-20 13:03] VITALS: BP 98/61; PULSE 63; RESP 16; TEMP 35.7; O2SAT 93; BMI 29.6
[2024-04-20] MEDS: 0.9% NaCl Peripheral Flush Adult/Peds IV ×2 (13:04→13:12)
[2024-04-20] MEDS: Furosemide 40 MG/4 ML Vial IV (13:06)
[2024-04-20 13:18] VITALS: BP 102/66; PULSE 57; RESP 16
== END 2024-04-20 23:59 | disposition home or self-care (01) ==
LOC: MEDOUTP 12:53
PROVIDERS: PCP Student in an Organized Health Care Education/Training Program; Referring Provider Internal Medicine Cardiovascular Disease; Visit Provider Internal Medicine Cardiovascular Disease
DX: I50.42 Chronic combined systolic (congestive) and diastolic (congestive) heart failure (principal)
CPT/HCPCS: 96374; A4216; J1940

== ENCOUNTER 2024-04-21 10:51 | Outpatient (CLI) | payer MEDICARE, SELFPAY ==
[2024-04-21 11:00] VITALS: BP 108/62; PULSE 64; RESP 16; TEMP 36.3; O2SAT 100; BMI 29.6
[2024-04-21] MEDS: Furosemide 40 MG/4 ML Vial IV (11:40)
[2024-04-21 11:55] VITALS: BP 109/64; PULSE 66; RESP 14; O2SAT 98
[2024-04-21] MEDS: 0.9% NaCl Peripheral Flush Adult/Peds IV (12:11)
[2024-04-21 12:59] LABS: Anion Gap 4 (5-15); BUN 21 mg/dL (7-18); BUN/Creat Ratio 21.3 RATIO (10-20); Chloride 96 mmol/L (98-107); Creatinine, Serum 0.98 mg/dL (0.70-1.30); EST Glomerular Filtration Rate 77 mL/min (>60); Est Glom Filt Rate - Afr Amer 94 mL/min (>60); Estimated Creatinine Clearance 52.11 ml/min; Glucose 120 mg/dL (74-106); Potassium 3.3 mmol/L (3.5-5.1); Sodium Level 138 mmol/L (136-145)
== END 2024-04-21 23:59 | disposition home or self-care (01) ==
LOC: MEDOUTP 10:52
PROVIDERS: PCP Student in an Organized Health Care Education/Training Program; Referring Provider Internal Medicine Cardiovascular Disease; Visit Provider Internal Medicine Cardiovascular Disease
DX: I50.42 Chronic combined systolic (congestive) and diastolic (congestive) heart failure (principal)
CPT/HCPCS: 96374; 80048; A4216; J1940

== ENCOUNTER → 2024-04-28 | Outpatient (CLI) | payer MEDICARE, SELFPAY ==
[2024-04-28 14:35] LABS: Anion Gap 6 (5-15); BUN 27 mg/dL (7-18); BUN/Creat Ratio 21.3 RATIO (10-20); Calcium,Total 8.9 mg/dL (8.5-10.1); Chloride 97 mmol/L (98-107); Creatinine, Serum 1.27 mg/dL (0.70-1.30); EST Glomerular Filtration Rate 58 mL/min (>60); Est Glom Filt Rate - Afr Amer 70 mL/min (>60); Glucose 97 mg/dL (74-106); Potassium 3.7 mmol/L (3.5-5.1); Sodium Level 139 mmol/L (136-145)
== END | disposition home or self-care (01) ==
LOC: LAB 14:03
PROVIDERS: PCP Student in an Organized Health Care Education/Training Program; Referring Provider Internal Medicine Cardiovascular Disease; Visit Provider Internal Medicine Cardiovascular Disease
DX: I50.42 Chronic combined systolic (congestive) and diastolic (congestive) heart failure (principal)
CPT/HCPCS: 36415; 80048

== ENCOUNTER → 2024-05-05 | Outpatient (CLI) | payer MEDICARE, SELFPAY ==
[2024-05-05 13:08] LABS: AST(SGOT) 20 U/L (15-37); Alanine Aminotransfer ALT/SGPT 24 U/L (16-61); Albumin, Serum 2.9 g/dL (3.2-5.0); Alkaline Phosphatase 94 U/L (45-117); Bilirubin, Direct 0.42 mg/dL (0.00-0.30); Cholesterol 90 mg/dL (200); High Density Lipoprotein 48 mg/dL; Protein, Total 5.9 g/dL (6.4-8.2); Triglycerides 54 mg/dL; Very Low Density Lipoprotein 11 mg/dL (5-40)
== END | disposition home or self-care (01) ==
LOC: LAB 11:47
PROVIDERS: Nurse Practitioner Family; PCP Student in an Organized Health Care Education/Training Program; Referring Provider Internal Medicine Cardiovascular Disease; Visit Provider Internal Medicine Cardiovascular Disease
DX: E78.00 Pure hypercholesterolemia, unspecified (principal)
CPT/HCPCS: 36415; 80061; 80076

== ENCOUNTER 2024-05-23 01:44 | Inpatient (IN) | payer MEDICARE, SELFPAY ==
[2024-05-23] VITALS (16 sets, daily range): BP systolic 89–113; BP diastolic 44–69; PULSE 65–89; RESP 12–22; TEMP 36.2–37; O2SAT 92–99; BMI 31.8; BMI 32.5
--- NOTE | 2024-05-23 02:25 | RAD_ITS ---
EXAM: XR CHEST, 1 VIEW CLINICAL INDICATION: Chest pain TECHNIQUE: Frontal view of the chest. COMPARISON: Single view chest 04/05/24 FINDINGS: LUNGS AND PLEURAL SPACES: Moderate pleural effusions with patchy bilateral airspace disease. No pneumothorax. HEART: Unremarkable. Cardiac silhouette not enlarged. MEDIASTINUM: Central airways and mediastinal contour are unremarkable. BONES/JOINTS: Unremarkable. No acute fracture. SOFT TISSUES: Unremarkable. TUBES, LINES AND DEVICES: Left chest ICD. RAD/Chest 1 View (Portable) IMPRESSION: Moderate pleural effusions with patchy bilateral airspace disease. Findings may indicate pneumonia. Electronically Signed: Dustin Haines MD at 3:16 EST ,
--- NOTE | 2024-05-23 02:25 | EKG12_ITS ---
Test Reason : DYSRHYTHMIA Blood Pressure : */* mmHG Vent. Rate : 83 BPM Atrial Rate : 83 BPM P-R Int : 134 ms QRS Dur : 148 ms QT Int : 424 ms P-R-T Axes : * 155 -47 degrees QTcB Int : 498 ms Normal sinus rhythm Right bundle branch block , plus right ventricular hypertrophy T wave abnormality, consider inferior ischemia Abnormal ECG Confirmed by MIRTHA RAO, RAE ([id number]), television news video editor BARNEY TOWNSEND ([id number]) on 05/23/2024 6:42:50 AM Referred By: YOLANDA Confirmed By: RAE SHANNON MD
--- NOTE | 2024-05-23 02:29 | EDS_ITS ---
HPI History of Present Illness Chief Complaint: Chest Other Informant: patient, family and EMS Narrative Narrative: 84-year-old male presenting to the emergency department with a chief complaint of defibrillating firing. Patient states he was laying in bed when he felt his defibrillator fire. He states that he is unsure of what type of defibrillator pacemaker he has. He sees Dr. Farley locally for cardiology. Patient is on warfarin. He is not experiencing any chest pain or palpitations or shortness of breath. He did note that last night before bed he coughed up a large amount of phlegm which was a bit atypical for him. He wonders if his oxygen was low because he did not feel like he was getting enough oxygen. This has happened before when the water chamber to his concentrator was not properly attached. At that time he states his pulse ox was around 70%. He typically wears about 2 L nasal cannula. I do not have any oxygen readings at home and EMS had applied there oxygen before recording a pulse ox. 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 Pneumonia Ventricular tachycardia (paroxysmal) Nonrheumatic mitral (valve) insufficiency Wallenberg syndrome Anxiety History of non-ST elevation myocardial infarction (NSTEMI) (05/27/21) Longstanding persistent atrial fibrillation Essential hypertension Ischemic cardiomyopathy Atherosclerosis of coronary artery bypass graft of [place] heart with angina pectoris LV (left ventricular) mural thrombus Wears glasses History of steroid therapy Arthritis Kidney stone Back pain Stroke/cerebrovascular accident History of hiatal hernia Non-smoker History of pain when walking Osteoarthritis Atrial fibrillation Personal history of colonic polyps Personal history of colon cancer, stage III Colon cancer History of stroke Hyperlipidemia Home Medications ?Medication ?Instructions ?Recorded ?Last Taken ?Type clonazepam 0.5 mg tablet (Klonopin) 0.5 mg PO TID anxiety 08/11/13 12/07/22 History ascorbic acid (vitamin C) 500 mg 1,000 mg PO DAILY@0800 supplement 07/11/1511/10 History tablet aspirin 81 mg tablet,delayed 81 mg PO QHS heart health 07/11/15 12/06/22 History release vit C 250 mg-vit E 90 mg-zinc 40 1 tab PO BID eye vitamin 02/24/21 12/07/22 H istory mg-copper 1 [id number] capsule (PreserVision AREDS-2) cholecalciferol (vitamin D3) 125 125 mcg PO DAILY supplement 03/05/23 Unknown History mcg (5,000 unit) tablet atorvastatin 10 mg tablet 10 mg PO QHS #90 tabs 09/06/23 Unknown Rx tamsulosin 0.4 mg capsule 0.4 mg PO QHS Prostate 10/13/23 Unknown History carvedilol 25 mg tablet 12.5 mg (1/2 x 25 mg) PO BID #180 01/12/24 Unknown Rx tabs warfarin 2 mg tablet 2 mg PO .COMPLEX #90 TABLETS 02/17/24 Unknown Rx torsemide 20 mg tablet 40 mg (2 x 20 mg) PO BID #120 tabs 04/28/24 Unknown Rx metolazone 2.5 mg tablet 2.5 mg PO .COMPLEX #15 tabs 05/02/24 Unknown Rx potassium chloride 20 mEq 20 meq PO BID supplement #180 tabs 05/08/24 Unknown Rx tablet,extended release empagliflozin 10 mg tablet 10 mg PO DAILY #30 tabs 05/09/24 Unknown Rx (Jardiance) isosorbide mononitrate 30 mg 30 mg PO DAILY #90 tabs 05/09/24 Unknown Rx tablet,extended release 24 hr hydralazine 10 mg tablet 10 mg PO TID #90 tabs 05/12/24 Unknown Rx warfarin 3 mg tablet 3 mg PO 4XW #60 tabs 05/22/24 Unknown Rx albuterol sulfate 90 mcg/actuation 2 puff inhalation Q4H PRN PRN 05/23/24 Unknown History aerosol inhaler wheezing Allergy/AdvReac Type Severity Reaction Status Date / Time amiodarone AdvReac Severe Severe Verified 05/23/24 01:56 urinary retention requiring catheter KALEIGH Inhibitors AdvReac Other Verified 05/23/24 01:56 hydrochlorothiazide AdvReac Other Verified 05/23/24 01:56 levofloxacin (From Levaquin) AdvReac aching Verified 05/23/24 01:56 legs trouble walking spironolactone AdvReac Other Verified 05/23/24 01:56 Family History Father Hypertension Heart disease Surgical History History of left heart catheterization History of implantable cardiac defibrillator (ICD) (02/10/17) H/O coronary artery bypass surgery (08/27/05) History of coronary artery stent placement (05/27/21) History of ankle fusion History of right knee joint replacement History of colonoscopy (2016) History of left hip replacement History of cholecystectomy Hx of cataract surgery History of colon surgery Social History household members: spouse Smoking Status: Never smoker alcohol intake: never substance use type: does not use caffeine: Yes Type: coffee Number of servings: 1 ROS ROS ED Constitutional Constitutional ED: Denies chills or weight loss Eyes Eyes: Denies change in vision or diplopia ENT ENT ED: Denies ear pain, rhinorrhea or sore throat Cardiovascular Cardiovascular: Reports as per HPI and chest pain; Denies orthopnea, palpitations or racing heartbeat Respiratory/Chest Respiratory/Chest: Reports cough; Denies dyspnea or orthopnea Gastrointestinal Gastrointestinal: Denies abdominal pain, diarrhea, nausea or vomiting Genitourinary Genitourinary ED: Denies dysuria, hematuria or urinary frequency Musculoskeletal Musculoskeletal: Denies arthralgias or myalgias Integumentary Denies abscess or rash Neurologic Neurologic: Denies headache(s) or weakness Psychiatric Psychiatric: Denies anxiety, depression, suicidal ideation or suicidal thoughts Endocrine Endocrinology: Denies polydipsia, polyphagia or polyuria Allergic/Immunologic Allergic/Immunologic ED: Denies mouth swelling, tongue swelling or urticaria EXAM Physical Exam Const Vital Signs: 05/23/24 01:45 05/23/24 01:56 05/23/24 02:44 Temperature 98.6 F Temperature Source Oral Pulse Rate 89 83 Respiratory Rate 22 H 18 Respiratory Effort Normal Blood Pressure 100/69 106/53 L Blood Pressure Mean 79 70 Pulse Ox 92 92 Oxygen Delivery Method Nasal Cannula Nasal Cannula Oxygen Flow Rate (L/min) 2 2 05/23/24 03:00 05/23/24 04:00 05/23/24 04:44 Temperature 98.4 F Temperature Source Pulse Rate 76 74 79 Respiratory Rate 13 14 12 Respiratory Effort Blood Pressure 102/44 L 102/59 L 102/58 L Blood Pressure Mean 63 73 72 Pulse Ox 95 95 96 Oxygen Delivery Method Nasal Cannula Nasal Cannula Oxygen Flow Rate (L/min) 2 2 05/23/24 04:45 Temperature Temperature Source Pulse Rate 69 Respiratory Rate 12 Respiratory Effort Blood Pressure 102/58 L Blood Pressure Mean 72 Pulse Ox 96 Oxygen Delivery Method Nasal Cannula Oxygen Flow Rate (L/min) 2 Positive well nourished and well developed General Appearance ED: well developed HEENT Reports normocephalic, head/scalp atraumatic and moist mucous membranes Eyes PERRL and EOMs intact bilaterally Neck no lymphadenopathy, supple and no JVD Resp normal respiratory effort and clear to auscultation bilaterally Cardio regular rate, regular rhythm and no murmurs GI normal to inspection, nondistended, normoactive bowel sounds and non-tender Palpation: soft Back/Spine no CVA tenderness and normal ROM Extremity normal to inspection General Extremety ED: Negative for edema General Extremity: Negative for edema Neuro oriented x3 and CN's II-XII intact bilaterally Sensorium / Orientation: alert Motor Exam: strength 5/5 throughout Psych mental status grossly normal Mood & Affect: Negative for depressed or tearful Skin no rashes or lesions noted and no wounds MDM MDM MDM Narrative Medical decision making narrative: Differential diagnosis includes but not limited to cardiac dysrhythmia coronary disease electrolyte abnormalities anemia hypoxia Patient received supplemental oxygen has been saturating around 95% on 2 L. White count 8.1 hemoglobin 11.7 platelet count is 136. INR 2.2 potassium low at 2.9 magnesium 2.4 glucose 105 BUN of 52 with a creatinine of 1.31. My independent interpretation of the chest x-ray is small bilateral pleural effusions with possible changes of CHF. Patient is not having any complaints of shortness of breath or chest pain. We are able to interrogate his pacemaker. This showed 3 defibrillations due to ventricular fibrillation between midnight and 1230 which is consistent with his story. We are going to be replacing his potassium. I spoke with Dr. Farley we will bring him into the hospital for further evaluation. History & Record Review Discussion w/independent historian: EMS personnel, Patient and Family Additional record(s) reviewed:: Prior outpatient record, Prior ED visit and Prior labs Lab Data Attestation: I reviewed the patient's lab results. Labs: Laboratory Results - last 24 hr 05/23/24 01:56 WBC 8.1 RBC 3.99 L Hgb 11.7 L Hct 37.2 L MCV 93.2 MCH 29.3 MCHC 31.5 L RDW Std Deviation 55.3 H RDW Coeff of Abdirahman 16.2 H Plt Count 136 L MPV 11.0 Immature Gran % (Auto) 0.500 Neut % (Auto) 88.6 H Lymph % (Auto) 2.9 L [place] % (Auto) 6.0 Eos % (Auto) 1.9 Baso % (Auto) 0.1 Absolute Neuts (auto) 7.2 Absolute Lymphs (auto) 0.23 L Nucleated RBC % 0 PT 23.9 H INR 2.2 Sodium 136 Potassium 2.9 L Chloride 90 L Carbon Dioxide 36.0 H Anion Gap 9 BUN 52 H Creatinine 1.31 H Estim Creat Clear Calc 40.31 Est GFR (MDRD) Af Amer 67 Est GFR (MDRD) Non-Af 56 L BUN/Creatinine Ratio 39.7 H Glucose 105 Calcium 9.0 Magnesium 2.4 Radiography Diagnostic Testing: Clinical Impression(s) from Imaging Studies Chest X-Ray 05/23/24 02:25 IMPRESSION: Moderate pleural effusions with patchy bilateral airspace disease. Findings may indicate pneumonia. Electronically Signed: Dustin Haines MD at 3:16 EST , EKG Initial EKG: Attestation: I personally reviewed and interpreted this EKG as follows: Comments: Normal sinus rhythm right bundle ingrid block. Management Discussion w/another healthcare provider: Hospitalist (Dr. Lacy) and Communications Systems Engineer (Dr Farley (Cardiology)) Discharge Plan Dx/Rx/DC Orders Clinical Impression: Ventricular fibrillation, Acute hypokalemia, Atherosclerotic heart disease of [place] coronary artery without angina pectoris Disposition Disposition: Acute Care Hospital [facility] Discharge Date/Time: 05/23/24 05:21
[2024-05-23 02:52] LABS: Absolute Lymphocyte Count 0.23 X10^3/uL (0.83-4.51); Absolute Neutrophil Count 7.2 X10^3/uL (2.0-7.7); Basophil# 0.01 X10^3/uL; Basophil% 0.1 % (0-1); Eosinophil# 0.15 X10^3/uL; Eosinophils% 1.9 % (0-5); Hematocrit 37.2 % (40-54); Hemoglobin 11.7 g/dL (13.0-16.5); Lymphocyte # 0.23 X10^3/ul (0.83-4.51); Lymphocyte % 2.9 % (19-41); Mean Corp Hgb Conc 31.5 g/dL (32-36); Mean Corpuscular Hgb 29.3 pg (27.0-32.0); Mean Corpuscular Volume 93.2 fL (80-94); Monocyte# 0.48 X10^3/uL; NRBC Flagged by Analyzer 0 % (0-5); Neutrophil # 7.15 X10^3/uL (2.7-7.7); Neutrophil % 88.6 % (47-70); POSITIVE DIFFERENTIAL YES; Platelet Count 136 K/mm3 (150-450); RBC Distribution Width CV 16.2 % (11.6-14.6); RBC Distribution Width SD 55.3 fl (35.1-43.9); Red Blood Count 3.99 M/mm3 (4.6-6.2); White Blood Count 8.1 K/mm3 (4.4-11.0)
[2024-05-23 03:05] LABS: International Normalized Ratio 2.2; Prothrombin Time (Protime)PT. 23.9 SECONDS (11.7-14.9)
[2024-05-23 03:08] LABS: Anion Gap 9 (5-15); BUN 52 mg/dL (7-18); BUN/Creat Ratio 39.7 RATIO (10-20); Chloride 90 mmol/L (98-107); Creatinine, Serum 1.31 mg/dL (0.70-1.30); EST Glomerular Filtration Rate 56 mL/min (>60); Est Glom Filt Rate - Afr Amer 67 mL/min (>60); Estimated Creatinine Clearance 40.31 ml/min; Glucose 105 mg/dL (74-106); Magnesium 2.4 mg/dL (1.6-2.6); Potassium 2.9 mmol/L (3.5-5.1); Sodium Level 136 mmol/L (136-145)
[2024-05-23] MEDS: Potassium Chloride Oral Tablet 20 MEQ 40 MEQ PO ×4 (03:31→18:15)
[2024-05-23] MEDS: Potassium Chloride 10mEq/100mL 10 MEQ/100 ML IV.SOLN. 100 MEQ IV BOLUS ×2 (03:34→04:38)
--- NOTE | 2024-05-23 04:50 | HP.PCM_ITS ---
[facility] - General General Date of Admission: 05/23/24 Date of Service: 05/23/24 Chief Complaint: Defibrillator is firing HPI Narrative DARRELL PRIETO, is a 84 M who presents to the emergency room with chief complaint of being defibrillated by his internal defibrillator. Patient states it happened while he was laying in bed this evening and has occurred multiple times. Patient denies any chest pain, shortness of breath, fevers or chills or nausea or vomiting or diarrhea. Patient laboratory studies show a CBC with a white blood cell count of 8.1, hemoglobin 11.6, hematocrit 37, platelets 136. BMP shows a sodium of 136, low potassium of 2.9 with a chloride of 90 and a bicarb of 36, BUN 52, creatinine 1.3, glucose 105, magnesium 2.4. Chest x-ray reveals moderate pleural effusions. Internal defibrillator/pacemaker was interrogated and showed bouts of ventricular fibrillation prior to being defibrillated. Patient will be admitted to PCU with correction of low potassium and consult to cardiology. 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 Pneumonia Ventricular tachycardia (paroxysmal) Nonrheumatic mitral (valve) insufficiency Wallenberg syndrome Anxiety History of non-ST elevation myocardial infarction (NSTEMI) (05/27/21) Longstanding persistent atrial fibrillation Essential hypertension Ischemic cardiomyopathy Atherosclerosis of coronary artery bypass graft of [place] heart with angina pectoris LV (left ventricular) mural thrombus Wears glasses History of steroid therapy Arthritis Kidney stone Back pain Stroke/cerebrovascular accident History of hiatal hernia Non-smoker History of pain when walking Osteoarthritis Atrial fibrillation Personal history of colonic polyps Personal history of colon cancer, stage III Colon cancer History of stroke Hyperlipidemia Home Medications ?Medication ?Instructions ?Recorded ?Last Taken ?Type clonazepam 0.5 mg tablet (Klonopin) 0.5 mg PO TID anxiety 08/11/13 12/07/22 History ascorbic acid (vitamin C) 500 mg 1,000 mg PO DAILY@0800 supplement 07/11/15 12/07/22 History tablet aspirin 81 mg tablet,delayed 81 mg PO QHS heart [facility] 07/11/15 12/06/22 History release vit C 250 mg-vit E 90 mg-zinc 40 1 tab PO BID eye vitamin 02/24/21 12/07/22 History mg-copper 1 [id number] capsule (PreserVision AREDS-2) cholecalciferol (vitamin D3) 125 125 mcg PO DAILY supplement 03/05/23 Unknown History mcg (5,000 unit) tablet atorvastatin 10 mg tablet 10 mg PO QHS #90 tabs 09/06/23 Unknown Rx tamsulosin 0.4 mg capsule 0.4 mg PO QHS Prostate 10/13/23 Unknown History carvedilol 25 mg tablet 12.5 mg (1/2 x 25 mg) PO BID #180 01/12/24 Unknown Rx tabs warfarin 2 mg tablet 2 mg PO .COMPLEX #90 TABLETS 02/17/24 Unknown Rx torsemide 20 mg tablet 40 mg (2 x 20 mg) PO BID #120 tabs 04/28/24 Unknown Rx metolazone 2.5 mg tablet 2.5 mg PO .COMPLEX #15 tabs 05/02/24 Unknown Rx potassium chloride 20 mEq 20 meq PO BID supplement #180 tabs 05/08/24 Unknown Rx tablet,extended release empagliflozin 10 mg tablet 10 mg PO DAILY #30 tabs 05/09/24 Unknown Rx (Jardiance) isosorbide mononitrate 30 mg 30 mg PO DAILY #90 tabs 05/09/24 Unknown Rx tablet,extended release 24 hr hydralazine 10 mg tablet 10 mg PO TID #90 tabs 05/12/24 Unknown Rx warfarin 3 mg tablet 3 mg PO 4XW #60 tabs 05/22/24 Unknown Rx albuterol sulfate 90 mcg/actuation 2 puff inhalation Q4H PRN PRN 05/23/24 Unknown History aerosol inhaler wheezing Allergy/AdvReac Type Severity Reaction Status Date / Time amiodarone AdvReac Severe Severe Verified 05/23/24 01:56 urinary retention requiring catheter KALEIGH Inhibitors AdvReac Other Verified 05/23/24 01:56 hydrochlorothiazide AdvReac Other Verified 05/23/24 01:56 levofloxacin (From Levaquin) AdvReac aching Verified 05/23/24 01:56 legs trouble walking spironolactone AdvReac Other Verified 05/23/24 01:56 Family History Father Hypertension Heart disease Surgical History History of left heart catheterization History of implantable cardiac defibrillator (ICD) (02/10/17) H/O coronary artery bypass surgery (08/27/05) History of coronary artery stent placement (05/27/21) History of ankle fusion History of right knee joint replacement History of colonoscopy (2016) History of left hip replacement History of cholecystectomy Hx of cataract surgery History of colon surgery Social History household members: spouse Smoking Status: Never smoker alcohol intake: never substance use type: does not use caffeine: Yes Type: coffee Number of servings: 1 ROS Constitutional Constitutional: Denies chills or fever(s) Eyes Eyes: Denies blurry vision ENT HEENT: Denies abnormal hearing Respiratory/Chest Respiratory/Chest: Denies cough or shortness of breath at rest Gastrointestinal Gastrointestinal: Denies abdominal pain Genitourinary Genitourinary: Denies dysuria Musculoskeletal Musculoskeletal: Denies back pain Integumentary Integumentary: Denies dry skin Neurologic Neurologic: Denies abnormal gait Psychiatric Psychiatric: Denies anxiety Vital Signs Vital Signs Vital Signs: 05/23/24 01:45 05/23/24 01:56 05/23/24 02:44 Temperature 98.6 F Temperature Source Oral Pulse Rate 89 83 Respiratory Rate 22 H 18 Respiratory Effort Normal Blood Pressure 100/69 106/53 L Blood Pressure Mean 79 70 Pulse Ox 92 92 Oxygen Delivery Method Nasal Cannula Nasal Cannula Oxygen Flow Rate (L/min) 2 2 05/23/24 03:00 05/23/24 04:00 05/23/24 04:44 Temperature 98.4 F Temperature Source Pulse Rate 76 74 79 Respiratory Rate 13 14 12 Respiratory Effort Blood Pressure 102/44 L 102/59 L 102/58 L Blood Pressure Mean 63 73 72 Pulse Ox 95 95 96 Oxygen Delivery Method Nasal Cannula Nasal Cannula Oxygen Flow Rate (L/min) 2 2 05/23/24 04:45 Temperature Temperature Source Pulse Rate 69 Respiratory Rate 12 Respiratory Effort Blood Pressure 102/58 L Blood Pressure Mean 72 Pulse Ox 96 Oxygen Delivery Method Nasal Cannula Oxygen Flow Rate (L/min) 2 Weight Weight: 179 lb 7.3 oz Body Mass Index (BMI) 31.8 Physical Exam Const alert, oriented x3 and no apparent distress General Appearance: cooperative and well developed HEENT normocephalic and head/scalp atraumatic Eyes PERRL Neck no lymphadenopathy Lymph Lymphatic: no lymphadenopathy noted Resp normal respiratory effort, normal air movement and clear to auscultation bilaterally Cardio regular rate, regular rhythm, S1 normal heart sound and S2 normal heart sound GI normal to inspection, nondistended, normoactive bowel sounds Extremity normal capillary refill Skin General Skin Exam: no breakdown Neuro no focal motor deficits and no sensory deficits noted Psych thought process normal, cooperative and affect normal Results Lab / Micro Data 05/23/24 01:56 05/23/24 01:56 Labs: Laboratory Results - last 24 hr 05/23/24 01:56: WBC 8.1, RBC 3.99 L, Hgb 11.7 L, Hct 37.2 L, MCV 93.2, MCH 29.3, MCHC 31.5 L, RDW Std Deviation 55.3 H, RDW Coeff of Abdirahman 16.2 H, Plt Count 136 L, MPV 11.0, Immature Gran % (Auto) 0.500, Neut % (Auto) 88.6 H, Lymph % (Auto) 2.9 L, [place] % (Auto) 6.0, Eos % (Auto) 1.9, Baso % (Auto) 0.1, Absolute Neuts (auto) 7.2, Absolute Lymphs (auto) 0.23 L, Nucleated RBC % 0, PT 23.9 H, INR 2.2, Sodium 136, Potassium 2.9 L, Chloride 90 L, Carbon Dioxide 36.0 H, Anion Gap 9, BUN 52 H, Creatinine 1.31 H, Estim Creat Clear Calc 40.31, Est GFR (MDRD) Af Amer 67, Est GFR (MDRD) Non-Af 56 L, BUN/Creatinine Ratio 39.7 H, Glucose 105, Calcium 9.0, Magnesium 2.4 Imaging Radiology Impression Chest X-Ray 05/23/24 02:25 IMPRESSION: Moderate pleural effusions with patchy bilateral airspace disease. Findings may indicate pneumonia. Electronically Signed: Dustin Haines MD at 3:16 EST , Assessment & Plan Assessment/Plan (1) Acute hypokalemia: (2) Ventricular fibrillation: (3) Atherosclerotic heart disease of [place] coronary artery without angina pectoris: QUALIFIERS: [place] vs. transplanted heart: [place] heart Qualified Code(s): I25.10 - Atherosclerotic heart disease of [place] coronary artery without angina pectoris (4) Hypoxia: (5) Chronic combined systolic and diastolic CHF (congestive heart failure): PLAN: Plan 1. Ventricular fibrillation?admit patient to progressive care unit, monitor has been interrogated and to be reviewed by clinical trial manager. Consult Dr. Farley. Repeat CBC, BMP in 1 day 2. Hypokalemia?replace potassium repeat BMP 3. Hypoxia continue nasal cannula oxygen to maintain saturation greater than 90%. 4. History of chronic CHF with moderate pleural effusions on chest x-ray?will monitor this for now and will hold off on using Lasix due to hypokalemia temporarily and may consider restarting this once that is corrected and ventricular fibrillation has been resolved 5. DVT prophylaxis?patient is on anticoagulation Charges/Coding Visit Charges Inpatient E&M: 61996 Init Hosp L2
[2024-05-23] MEDS: clonazePAM 0.5 MG Tablet PO ×3 (05:44→20:21)
[2024-05-23] MEDS: hydrALAZINE 10 MG Tablet PO ×2 (06:06→14:42)
[2024-05-23] MEDS: 0.9% Saline Lock 10 ML Syringe IV (06:07)
--- NOTE | 2024-05-23 06:38 | PCM.CONS.C ---
Assessment & Plan Assessment/Plan (1) Ventricular fibrillation: PLAN: It appears that he had a V-fib episode which was aborted by his defibrillator. We will reinterrogate this this morning. He has not been able to tolerate amiodarone in the past saying that it caused severe urinary retention which I found rather unusual. 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 My suspicion is that his urinary retention was not due to the amiodarone. We may discuss trying this again. (2) Chronic combined systolic and diastolic CHF (congestive heart failure): PLAN: He does have evidence of heart failure with reduced ejection fraction most recent echocardiogram performed in March demonstrated an ejection fraction of 25%. It is said that he is allergic to the KALEIGH inhibitors. (3) H/O coronary artery bypass surgery: PLAN: He is status post coronary bypass surgery as noted above. He is not a candidate for revascularization again. (4) History of implantable cardiac defibrillator (ICD): PLAN: He does have an implantable defibrillator which will be interrogated by our device clinic. (5) Ischemic cardiomyopathy: PLAN: He has severe ischemic cardiomyopathy with an estimated ejection fraction of 25%. He will continue on the beta-mert hydralazine and isosorbide. (6) Essential hypertension: PLAN: His blood pressure appears to be under good control at this particular time I would not make any major changes. (7) Acute hypokalemia: PLAN: He needs to have his potassium aggressively replaced. His magnesium appears to be therapeutic. This is likely the cause of his defibrillator discharge through his cardiac dysrhythmia. HPI Consult Data Date of Consult: 05/23/24 HPI Narrative HPI Narrative: DARRELL PRIETO, is a 84 M who presents to the emergency room after his defibrillator had gone off. He has a history of coronary artery disease status post bypass x5 in 2005 with sequential SVG to intermediate artery, lateral circumflex coronary artery, and posterolateral circumflex coronary artery, SVG to marginal branch of the right coronary artery, and ARIZMENDI to LAD. He underwent a heart catheterization 05/27/2021 that showed patent ARIZMENDI to LAD supplying collaterals to distal RCA as well as diagonal vessel and SVG to obtuse marginal vessel with high-grade stenosis noted at the anastomotic site and [place] vessel disease. His SVG to RCA was totally occluded. He also had collateral flow from left to left. His echocardiogram at the time showed ejection of 25% and stage II diastolic dysfunction. He was noted to have moderately enlarged left atrium, mildly enlarged right atrium, and moderate mitral insufficiency. He also has a history of ischemic cardiomyopathy, chronic atrial fibrillation, [facility] ICD placement in 2007 with lead and generator change in February 2017, previous LV mural thrombus in Spring/Summer 2020, hypertension, hyperlipidemia, and colon cancer with chemotherapy and surgery ICD report from October showed multiple episodes of nonsustained ventricular tachycardia. He proceeded with heart catheterization on 11/17/2022 that showed patent ARIZMENDI to LAD and SVG to obtuse marginal branch. There is noted be collateral flow from the left to right. Medical therapy was recommended. Patient was admitted to [facility] [place] in March 2024 for acute on chronic congestive heart failure. He received IV diuretic therapy. He was started on hydralazine and isosorbide to assist with afterload reduction. It is noted the patient is been tolerant to spironolactone and metolazone. Palliative and hospice care was also reviewed with patient during such admission. He was recently seen by my colleague Dr. Castro and had some medication changes including putting him on torsemide. It is not clear whether he is also being wearing his oxygen as required. He denies chest, arm, jaw, or neck discomfort. He states bilateral lower extremity edema. He denies claudication. He denies shortness of breath with activity, shortness of breath at rest, orthopnea, or PND. He denies chronic cough. He denies significant, sudden weight gain. He states frequent lightheadedness. In the emergency room during this visit his defibrillator was interrogated he was noted to have been in ventricular fibrillation with a low potassium of 2.9 and normal magnesium. His EKG demonstrated sinus rhythm with right bundle branch block. [facility] Medical History (Updated 05/23/24 @ 07:[address] 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 Anxiety History of non-ST elevation myocardial infarction (NSTEMI) (05/27/21) Longstanding persistent atrial fibrillation Atherosclerosis of coronary artery bypass graft of [place] heart with angina pectoris LV (left ventricular) mural thrombus Wears glasses History of steroid therapy Arthritis Kidney stone Back pain Stroke/cerebrovascular accident History of hiatal hernia Non-smoker History of pain when walking Osteoarthritis Atrial fibrillation Personal history of colonic polyps Personal history of colon cancer, stage III Colon cancer History of stroke Hyperlipidemia Home Medications ?Medication ?Instructions ?Recorded ?Last Taken ?Type clonazepam 0.5 mg tablet (Klonopin) 0.5 mg PO TID anxiety 08/11/13 12/07/22 History ascorbic acid (vitamin C) 500 mg 1,000 mg PO DAILY@0800 supplement 07/11/15 05/22/24 History tablet aspirin 81 mg tablet,delayed 81 mg PO QHS heart health 07/11/15 05/22/24 20:00 History release vit C 250 mg-vit E 90 mg-zinc 40 1 tab PO BID eye vitamin 02/24/21 05/22/24 History mg-copper 1 [id number] capsule (PreserVision AREDS-2) cholecalciferol (vitamin D3) 125 125 mcg PO DAILY supplement 03/05/23 05/22/24 History mcg (5,000 unit) tablet atorvastatin 10 mg tablet 10 mg PO QHS #90 tabs 09/06/23 Unknown Rx tamsulosin 0.4 mg capsule 0.4 mg PO QHS Prostate 10/13/23 Unknown History carvedilol 25 mg tablet 12.5 mg (1/2 x 25 mg) PO BID #180 01/12/24 Unknown Rx tabs warfarin 2 mg tablet 2 mg PO .COMPLEX #90 TABLETS 02/17/24 Unknown Rx torsemide 20 mg tablet 40 mg (2 x 20 mg) PO BID #120 tabs 04/28/24 Unknown Rx metolazone 2.5 mg tablet 2.5 mg PO .COMPLEX #15 tabs 05/02/24 Unknown Rx potassium chloride 20 mEq 20 meq PO BID supplement #180 tabs 05/08/24 Unknown Rx tablet,extended release empagliflozin 10 mg tablet 10 mg PO DAILY #30 tabs 05/09/24 Unknown Rx (Jardiance) isosorbide mononitrate 30 mg 30 mg PO DAILY #90 tabs 05/09/24 Unknown Rx tablet,extended release 24 hr hydralazine 10 mg tablet 10 mg PO TID #90 tabs 05/12/24 Unknown Rx warfarin 3 mg tablet 3 mg PO 4XW #60 tabs 05/22/24 Unknown Rx albuterol sulfate 90 mcg/actuation 2 puff inhalation Q4H PRN PRN 05/23/24 Unknown History aerosol inhaler wheezing Allergy/AdvReac Type Severity Reaction Status Date / Time amiodarone AdvReac Severe Severe Verified 05/23/24 06:02 urinary retention requiring catheter KALEIGH Inhibitors AdvReac Other Verified 05/23/24 06:02 hydrochlorothiazide AdvReac Other Verified 05/23/24 06:02 levofloxacin (From Levaquin) AdvReac aching Verified 05/23/24 06:02 legs trouble walking spironolactone AdvReac Other Verified 05/23/24 06:02 Family History Father Hypertension Heart disease Surgical History (Updated 05/23/24 @ 07:[address] Miguel Farley MD) History of implantable cardiac defibrillator (ICD) (02/10/17) H/O coronary artery bypass surgery (08/27/05) History of left heart catheterization History of coronary artery stent placement (05/27/21) History of ankle fusion History of right knee joint replacement History of colonoscopy (2016) History of left hip replacement History of cholecystectomy Hx of cataract surgery History of colon surgery Social History household members: spouse Smoking Status: Never smoker alcohol intake: never substance use type: does not use caffeine: Yes Type: coffee Number of servings: 1 ROS Constitutional Constitutional: Denies fever(s) or weight loss Eyes Eyes: Reports systems reviewed and no addt'l complaints, except as documented ENT HEENT: Reports systems reviewed and no addt'l complaints, except as documented Cardiovascular Cardiovascular: Reports palpitations; Denies chest pain at rest, chest pain with activity, dyspnea at rest, dyspnea on exertion, edema or paroxysmal nocturnal dyspnea Respiratory/Chest Respiratory/Chest: Denies dyspnea on exertion, productive cough, shortness of breath at rest or shortness of breath with exertion Gastrointestinal Gastrointestinal: Denies change in bowel habits, nausea, vomiting or weight changes Genitourinary Genitourinary: Denies difficulty urinating Musculoskeletal Musculoskeletal: Denies joint stiffness or muscle weakness Integumentary Integumentary: Denies lesions Neurologic Neurologic: Denies dizziness or syncope Psychiatric Psychiatric: Denies anxiety Endocrine Endocrinology: Denies excessive sweating or fatigue Hematologic/Lymphatic Hematologic/Lymphatic: Denies anemia Allergic/Immunologic Allergic/Immunologic: Denies seasonal rhinorrhea Physical Exam Const alert, oriented x3 and no apparent distress General Appearance: cooperative HEENT hearing grossly normal bilaterally Head and Scalp: atraumatic Eyes EOMs intact bilaterally Neck General: normal visual inspection Chest inspection of chest normal and palpation of chest normal Resp normal respiratory effort Auscultation: clear to auscultation bilaterally Cardio regular rate, regular rhythm, S1 normal heart sound and S2 normal heart sound Jugular Venous Distention: JVD GI normal to inspection, nondistended, normoactive bowel sounds Extremity normal capillary refill General Extremity: edema bilateral Peripheral Pulses: Yes pulses 2+ throughout and femoral pulses present Skin no rashes or lesions noted Neuro oriented x3 and CN's II-XII intact bilaterally Psych Appearance: grossly normal and appropriate Risk Stratification Risk Stratification Applicable: No Objective Data Vital Signs: Vital Signs Temp Pulse Resp BP Pulse Ox O2 Del Method O2 Flow Rate 97.5 F L 65 16 113/52 L 96 Nasal Cannula 2 05/23/24 05:36 05/23/24 06:06 05/23/24 05:36 05/23/24 06:06 05/23/24 05:36 05/23/24 05:36 05/23/24 05:36 Oxygen Flow Rate (L/min) 2 Oxygen Delivery Method Nasal Cannula Weight: 177 lb 14.609 oz Body Mass Index (BMI) 32.5 Intake & Output: Intake and Output for Last 24 Hours 05/21/24 05/22/24 05/23/24 23:59 23:59 23:59 Intake Total 200 / 200 Balance 200 / 200 Lab / Micro Data 05/23/24 06:18 05/23/24 01:56 Labs: Laboratory Results - last 24 hr 05/23/24 01:56: WBC 8.1, RBC 3.99 L, Hgb 11.7 L, Hct 37.2 L, MCV 93.2, MCH 29.3, MCHC 31.5 L, RDW Std Deviation 55.3 H, RDW Coeff of Abdirahman 16.2 H, Plt Count 136 L, MPV 11.0, Immature Gran % (Auto) 0.500, Neut % (Auto) 88.6 H, Lymph % (Auto) 2.9 L, Wilkes % (Auto) 6.0, Eos % (Auto) 1.9, Baso % (Auto) 0.1, Absolute Neuts (auto) 7.2, Absolute Lymphs (auto) 0.23 L, Nucleated RBC % 0, PT 23.9 H, INR 2.2, Sodium 136, Potassium 2.9 L, Chloride 90 L, Carbon Dioxide 36.0 H, Anion Gap 9, BUN 52 H, Creatinine 1.31 H, Estim Creat Clear Calc 40.31, Est GFR (MDRD) Af Amer 67, Est GFR (MDRD) Non-Af 56 L, BUN/Creatinine Ratio 39.7 H, Glucose 105, Calcium 9.0, Magnesium 2.4 Cardiology Labs/Tests 05/23/24 01:56: WBC 8.1, RBC 3.99 L, Hgb 11.7 L, Hct 37.2 L, MCV 93.2, MCH 29.3, MCHC 31.5 L, Plt Count 136 L, MPV 11.0, Immature Gran % (Auto) 0.500, Neut % (Auto) 88.6 H, Lymph % (Auto) 2.9 L, Wilkes % (Auto) 6.0, Eos % (Auto) 1.9, Baso % (Auto) 0.1, Absolute Neuts (auto) 7.2, Nucleated RBC % 0, PT 23.9 H, INR 2.2, Sodium 136, Potassium 2.9 L, Chloride 90 L, Carbon Dioxide 36.0 H, Anion Gap 9, BUN 52 H, Creatinine 1.31 H, Est GFR (MDRD) Af Amer 67, Est GFR (MDRD) Non-Af 56 L, BUN/Creatinine Ratio 39.7 H, Glucose 105, Calcium 9.0, Magnesium 2.4 Rhythm: EKG: ECHO: Stress Test: Cardiac Cath: PCI: CT Surgery: Holter monitor: EPS: PPM: CXR: Chest CT Scan: Radiography Diagnostic Testing: Radiology Impression Chest X-Ray 05/23/24 02:25 IMPRESSION: Moderate pleural effusions with patchy bilateral airspace disease. Findings may indicate pneumonia. Electronically Signed: Dustin Haines MD at 3:16 EST ,
[2024-05-23 06:58] LABS: Absolute Neutrophil Count 6.3 X10^3/uL (2.0-7.7); Basophil# 0.01 X10^3/uL; Basophil% 0.1 % (0-1); Eosinophils% 1.4 % (0-5); Hematocrit 34.5 % (40-54); Hemoglobin 10.7 g/dL (13.0-16.5); Lymphocyte % 4.1 % (19-41); Mean Corpuscular Volume 93.5 fL (80-94); Mean Platelet Vol. 10.6 fl (6.2-12.0); Monocyte# 0.49 X10^3/uL; Monocyte% 6.8 % (0-10); NRBC Flagged by Analyzer 0 % (0-5); Neutrophil # 6.31 X10^3/uL (2.7-7.7); Neutrophil % 87.2 % (47-70); POSITIVE DIFFERENTIAL YES; Platelet Count 118 K/mm3 (150-450); RBC Distribution Width CV 16.2 % (11.6-14.6); RBC Distribution Width SD 55.4 fl (35.1-43.9); Red Blood Count 3.69 M/mm3 (4.6-6.2); White Blood Count 7.2 K/mm3 (4.4-11.0)
[2024-05-23 07:37] LABS: Anion Gap 7 (5-15); BUN 50 mg/dL (7-18); BUN/Creat Ratio 40.7 RATIO (10-20); Calcium,Total 8.7 mg/dL (8.5-10.1); Chloride 94 mmol/L (98-107); Creatinine, Serum 1.23 mg/dL (0.70-1.30); EST Glomerular Filtration Rate 60 mL/min (>60); Est Glom Filt Rate - Afr Amer 72 mL/min (>60); Estimated Creatinine Clearance 41.86 ml/min; Glucose 109 mg/dL (74-106); Magnesium 2.3 mg/dL (1.6-2.6); Sodium Level 138 mmol/L (136-145)
[2024-05-23 08:07] LABS: Phosphorus 2.7 mg/dL (2.5-4.9)
[2024-05-23] MEDS: Cholecalciferol (Vit D3) 125 MCG CAPSULE (5,000 UNITS) PO (10:05)
[2024-05-23] MEDS: Empagliflozin 10 MG Tablet PO (10:05)
[2024-05-23] MEDS: Multivitamin (Healthy Eyes) Capsule 1 CAP PO ×2 (10:05→20:22)
[2024-05-23] MEDS: Ascorbic Acid 500 MG Tablet 1000 MG PO (10:05)
[2024-05-23] MEDS: Carvedilol 12.5 MG Tablet PO ×2 (10:06→18:15)
[2024-05-23] MEDS: Isosorbide Mononitrate 30 MG Tablet PO (10:06)
[2024-05-23] MEDS: Torsemide 20 MG Tablet 40 MG PO ×2 (10:06→18:16)
--- NOTE | 2024-05-23 14:15 | CASEMGMT ---
SONU MORENO Face to Face with patient for initial transition planning/care coordination assessment. RN CM introduced self and role at [facility]. Patient sitting in chair, alert and oriented, and son at bedside. Patient willing to participate in assessment and is able to answer all questions appropriately. Care providers, pharmacy, and demographics verified. Strata: 2 PCP: Devin Specialists: [facility] Preferred Pharmacy: [facility] Insurance: [employer] [facility] Prescription Benefit: yes Living Will/HPOA: yes, Monserrat Coronel LNOK: , sons Living Arrangements: Patient lives with in a single story home with 4 steps and railing x2 to enter. Patient states he is independent at home but assists patient at times. Transportation: sons DME/HHC: Patient hs raised toilet, walker, pulse ox, and home oxygen through [employer] with portability. No previous SNF. Patient is active with [facility]. Patient is not active with palliative or hospice care. Patient wishes to discharge home with resumption of [facility]. Patient states he has no further needs or concerns at this time. CM to follow for discharge planning needs that may arise. Disposition Plan: Patient to discharge home with family support and follow-up plans in place. Kaitlyn FAITH, RN, CM
[2024-05-23] MEDS: Amiodarone 200 MG Tablet PO ×2 (14:39→20:21)
[2024-05-23] MEDS: Jantoven 2 MG Tablet PO (18:15)
[2024-05-23] MEDS: Aspirin E.C. 81 MG Tablet PO (20:21)
[2024-05-23] MEDS: Docusate Sodium 100 MG Capsule PO (20:21)
[2024-05-23] MEDS: Tamsulosin HCl 0.4 MG Capsule PO (20:22)
[2024-05-23] MEDS: Atorvastatin Calcium 10 MG Tablet PO (20:22)
[2024-05-24] VITALS (13 sets, daily range): BP systolic 78–95; BP diastolic 53–67; PULSE 63–76; RESP 14–18; TEMP 36.1–37; O2SAT 94–99
[2024-05-24] MEDS: 0.9% Normal Saline (250mL Bag) 250 ML 999 ML IV (02:05)
[2024-05-24] MEDS: 0.9% Saline Lock 10 ML Syringe IV ×2 (02:05→15:23)
[2024-05-24] MEDS: clonazePAM 0.5 MG Tablet PO ×3 (06:13→20:44)
[2024-05-24 07:31] LABS: Anion Gap 5 (5-15); BUN 56 mg/dL (7-18); BUN/Creat Ratio 38.4 RATIO (10-20); Chloride 96 mmol/L (98-107); Creatinine, Serum 1.46 mg/dL (0.70-1.30); EST Glomerular Filtration Rate 49 mL/min (>60); Est Glom Filt Rate - Afr Amer 59 mL/min (>60); Estimated Creatinine Clearance 35.27 ml/min; Glucose 103 mg/dL (74-106); Potassium 4.5 mmol/L (3.5-5.1); Sodium Level 136 mmol/L (136-145)
--- NOTE | 2024-05-24 08:02 | PCM.PN.CARD ---
Subjective Subjective Patient seen and evaluated. Doing better. No arrhythmias. However feels weak Objective Data Vital Signs: Vital Signs Temp Pulse Resp BP Pulse Ox O2 Del Method O2 Flow Rate 97.1 F L 63 16 92/61 97 Nasal Cannula 2 05/24/24 05:59 05/24/24 06:02 05/24/24 05:59 05/24/24 06:02 05/24/24 05:59 05/24/24 05:59 05/24/24 05:59 Oxygen Flow Rate (L/min) 2 Oxygen Delivery Method Nasal Cannula Weight: 177 lb 14.609 oz Body Mass Index (BMI) 32.5 Intake & Output: Intake and Output for Last 24 Hours 05/22/24 05/23/24 05/24/24 23:59 23:59 23:59 Intake Total 200 / 200 250 / 250 Balance 200 / 200 250 / 250 Lab / Micro Data 05/23/24 06:18 05/24/24 06:11 Labs: Laboratory Results - last 24 hr 05/23/24 06:18: Phosphorus 2.7 05/24/24 06:11: Sodium 136, Potassium 4.5, Chloride 96 L, Carbon Dioxide 35.0 H, Anion Gap 5, BUN 56 H, Creatinine 1.46 H, Estim Creat Clear Calc 35.27, Est GFR (MDRD) Af Amer 59 L, Est GFR (MDRD) Non-Af 49 L, BUN/Creatinine Ratio 38.4 H, Glucose 103, Calcium 9.0 Cardiology Labs/Tests 05/23/24 06:18: Phosphorus 2.7 05/24/24 06:11: Sodium 136, Potassium 4.5, Chloride 96 L, Carbon Dioxide 35.0 H, Anion Gap 5, BUN 56 H, Creatinine 1.46 H, Est GFR (MDRD) Af Amer 59 L, Est GFR (MDRD) Non-Af 49 L, BUN/Creatinine Ratio 38.4 H, Glucose 103, Calcium 9.0 Rhythm: EKG: ECHO: Stress Test: Cardiac Cath: PCI: CT Surgery: Holter monitor: EPS: PPM: CXR: Chest CT Scan: Physical Exam Const alert, oriented x3 and no apparent distress General Appearance: cooperative HEENT hearing grossly normal bilaterally Head and Scalp: atraumatic Eyes EOMs intact bilaterally Neck General: normal visual inspection Chest inspection of chest normal and palpation of chest normal Resp normal respiratory effort Auscultation: clear to auscultation bilaterally Cardio regular rate, regular rhythm, S1 normal heart sound and S2 normal heart sound Jugular Venous Distention: JVD GI normal to inspection, nondistended, normoactive bowel sounds Extremity normal capillary refill General Extremity: edema bilateral Peripheral Pulses: Yes pulses 2+ throughout and femoral pulses present Skin no rashes or lesions noted Neuro oriented x3 and CN's II-XII intact bilaterally Psych Appearance: grossly normal and appropriate Assessment & Plan Assessment/Plan (1) Ventricular fibrillation: PLAN: It appears that he had a V-fib episode which was aborted by his defibrillator. We will reinterrogate this this morning. He has not been able to tolerate amiodarone in the past saying that it caused severe urinary retention which I found rather unusual. 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 My suspicion is that his urinary retention was not due to the amiodarone. After much discussion it appears that he had benign prostatic hyperplasia at that time. I have restarted the amiodarone he appears to be tolerating this thus far. Will see how he does over the next 24 hours. (2) Chronic combined systolic and diastolic CHF (congestive heart failure): PLAN: He does have evidence of heart failure with reduced ejection fraction most recent echocardiogram performed in March demonstrated an ejection fraction of 25%. It is said that he is allergic to the KALEIGH inhibitors. (3) H/O coronary artery bypass surgery: PLAN: He is status post coronary bypass surgery as noted above. He is not a candidate for revascularization again. (4) History of implantable cardiac defibrillator (ICD): PLAN: He does have an implantable defibrillator which will be interrogated by our device clinic. (5) Ischemic cardiomyopathy: PLAN: He has severe ischemic cardiomyopathy with an estimated ejection fraction of 25%. He will continue on the beta-mert hydralazine and isosorbide. (6) Essential hypertension: PLAN: His blood pressure appears to be low at this particular time and I will hold the isosorbide hydralazine and reduce the dose of the carvedilol. (7) Acute hypokalemia: PLAN: He needs to have his potassium aggressively replaced. His magnesium appears to be therapeutic. This is likely the cause of his defibrillator discharge through his cardiac dysrhythmia.
[2024-05-24] MEDS: Multivitamin (Healthy Eyes) Capsule 1 CAP PO ×2 (08:31→20:44)
[2024-05-24] MEDS: Potassium Chloride Oral Tablet 20 MEQ 40 MEQ PO ×2 (08:31→16:17)
[2024-05-24] MEDS: Cholecalciferol (Vit D3) 125 MCG CAPSULE (5,000 UNITS) PO (08:31)
[2024-05-24] MEDS: Empagliflozin 10 MG Tablet PO (08:31)
[2024-05-24] MEDS: Docusate Sodium 100 MG Capsule PO ×2 (08:31→20:44)
[2024-05-24] MEDS: Ascorbic Acid 500 MG Tablet 1000 MG PO (08:32)
[2024-05-24] MEDS: Furosemide 40 MG/4 ML Vial IV (15:23)
[2024-05-24] MEDS: Furosemide 500 MG in Empty Viaflex 50 mL 1 EACH CONT INF (15:24)
[2024-05-24] MEDS: Jantoven 2 MG Tablet PO (16:17)
[2024-05-24] MEDS: Carvedilol 6.25 MG Tablet PO (16:17)
--- NOTE | 2024-05-24 18:33 | PCM.PN.HOSP ---
Subjective Subjective Doing well today, blood pressures were little soft this morning but he did receive a dose of amiodarone as well as Lasix the day before Objective Data Objective Data Vital Signs: Vital Signs Temp Pulse Resp BP Pulse Ox O2 Del Method O2 Flow Rate 97.5 F L 63 16 91/59 L 98 Nasal Cannula 2 05/24/24 15:17 05/24/24 15:17 05/24/24 15:17 05/24/24 15:17 05/24/24 15:17 05/24/24 15:17 05/24/24 15:17 Oxygen Flow Rate (L/min) 2 Oxygen Delivery Method Nasal Cannula Weight: 177 lb 14.609 oz Body Mass Index (BMI) 32.5 Intake & Output: Intake and Output for Last 24 Hours 05/23/24 05/24/24 05/25/24 03:59 03:59 03:59 Intake Total 450 / 450 200 / 200 Balance 450 / 450 200 / 200 Lab / Micro Data 05/23/24 06:18 05/24/24 06:11 Labs: Laboratory Results - last 24 hr 05/24/24 06:11: Sodium 136, Potassium 4.5, Chloride 96 L, Carbon Dioxide 35.0 H, Anion Gap 5, BUN 56 H, Creatinine 1.46 H, Estim Creat Clear Calc 35.27, Est GFR (MDRD) Af Amer 59 L, Est GFR (MDRD) Non-Af 49 L, BUN/Creatinine Ratio 38.4 H, Glucose 103, Calcium 9.0 Physical Exam Narrative General: Alert, Oriented x3, Cooperative, No apparent distress HEENT: Atraumatic, PERRLA, EOMI, Normocephalic Oral: Moist Mucosa Neck: Supple, No JVD Lungs: Diminished, Normal air movement, No rhonchi, No wheeze, No rales Cardiovascular: Regular rate, Regular Rhythm, Normal S1, Normal S2, No murmurs Abdomen: Soft, Non Tender, Non-Distended, No Hepato-splenomegaly Extremities: Edema, Capillary Refill Less than 3 Seconds Skin: No rashes, No breakdown Musculoskeletal: No Tenderness to Palpation of Joints or Extremities Neurological: No focal neurological deficits, Motor Exam 5/5 strength throughout, Sensory exam intact to light touch and pain Psych/Mental Status: Normal Affect, Appropriate Assessment & Plan Assessment/Plan (1) Acute hypokalemia: (2) Ventricular fibrillation: (3) Atherosclerotic heart disease of [place] coronary artery without angina pectoris: QUALIFIERS: [place] vs. transplanted heart: [place] heart Qualified Code(s): I25.10 - Atherosclerotic heart disease of [place] coronary artery without angina pectoris (4) Hypoxia: (5) Chronic combined systolic and diastolic CHF (congestive heart failure): PLAN: Plan 1. 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 Continue with anticoagulation with Coumadin, INR is therapeutic at 2.2 ? Appreciate cardiology's assistance, attempting amiodarone as well as Lasix drip ? Potassium has been replaced ? Echo from 04/05/2024 with an EF of 25% stage II diastolic dysfunction ? Continue with Jardiance This will monitor make adjustments to his blood pressure medications 2. Chronic hypoxia ? Continue with his home oxygen requirements DVT: Coumadin Charges/Coding Visit Charges Inpatient E&M: 74237 Subs Hosp L2
[2024-05-24] MEDS: Aspirin E.C. 81 MG Tablet PO (20:44)
[2024-05-24] MEDS: Tamsulosin HCl 0.4 MG Capsule PO (20:44)
[2024-05-24] MEDS: Atorvastatin Calcium 10 MG Tablet PO (20:44)
[2024-05-24] MEDS: Polyethylene Glycol 3350 17 GM PACKET PO (20:50)
[2024-05-25] VITALS (9 sets, daily range): BP systolic 86–103; BP diastolic 60–62; PULSE 60–79; RESP 14–18; TEMP 36.1–36.6; O2SAT 94–97
[2024-05-25] MEDS: clonazePAM 0.5 MG Tablet PO ×3 (06:01→21:29)
[2024-05-25 07:12] LABS: Absolute Lymphocyte Count 0.41 X10^3/uL (0.83-4.51); Absolute Neutrophil Count 6.6 X10^3/uL (2.0-7.7); Basophil# 0.02 X10^3/uL; Basophil% 0.2 % (0-1); Eosinophil# 0.45 X10^3/uL; Eosinophils% 5.5 % (0-5); Hematocrit 38.3 % (40-54); Hemoglobin 11.9 g/dL (13.0-16.5); Lymphocyte # 0.41 X10^3/ul (0.83-4.51); Mean Corp Hgb Conc 31.1 g/dL (32-36); Mean Corpuscular Hgb 29.5 pg (27.0-32.0); Mean Platelet Vol. 11.7 fl (6.2-12.0); Monocyte# 0.61 X10^3/uL; Monocyte% 7.5 % (0-10); NRBC Flagged by Analyzer 0 % (0-5); Neutrophil # 6.59 X10^3/uL (2.7-7.7); Neutrophil % 81.2 % (47-70); POSITIVE DIFFERENTIAL YES; Platelet Count 167 K/mm3 (150-450); RBC Distribution Width CV 16.5 % (11.6-14.6); Red Blood Count 4.03 M/mm3 (4.6-6.2); White Blood Count 8.1 K/mm3 (4.4-11.0)
[2024-05-25 07:37] LABS: Anion Gap 5 (5-15); BUN 60 mg/dL (7-18); BUN/Creat Ratio 38.2 RATIO (10-20); Calcium,Total 8.9 mg/dL (8.5-10.1); Chloride 95 mmol/L (98-107); Creatinine, Serum 1.57 mg/dL (0.70-1.30); EST Glomerular Filtration Rate 45 mL/min (>60); Est Glom Filt Rate - Afr Amer 55 mL/min (>60); Glucose 139 mg/dL (74-106); Potassium 4.7 mmol/L (3.5-5.1); Sodium Level 135 mmol/L (136-145)
[2024-05-25 07:42] LABS: International Normalized Ratio 2.3; Prothrombin Time (Protime)PT. 24.8 SECONDS (11.7-14.9)
--- NOTE | 2024-05-25 07:42 | PCM.PN.CARD ---
Subjective Subjective Patient seen and evaluated. Sleeping. Tolerating lower dose of the medication somewhat. Objective Data Vital Signs: Vital Signs Temp Pulse Resp BP Pulse Ox O2 Del Method O2 Flow Rate 97.0 F L 76 18 92/61 96 Nasal Cannula 2 05/25/24 05:58 05/25/24 05:58 05/25/24 05:58 05/25/24 05:58 05/25/24 05:58 05/25/24 05:58 05/25/24 05:58 Oxygen Flow Rate (L/min) 2 Oxygen Delivery Method Nasal Cannula Weight: 177 lb 14.609 oz Body Mass Index (BMI) 32.5 Intake & Output: Intake and Output for Last 24 Hours 05/23/24 05/24/24 05/25/24 23:59 23:59 23:59 Intake Total 200 / 200 450 / 450 Output Total 325 / 485 510 / 510 Balance 200 / 200 125 / -35 -510 / -510 Lab / Micro Data 05/25/24 06:27 05/25/24 06:27 Labs: Laboratory Results - last 24 hr 05/25/24 06:27: WBC 8.1, RBC 4.03 L, Hgb 11.9 L, Hct 38.3 L, MCV 95.0 H, MCH 29.5, MCHC 31.1 L, RDW Std Deviation 58.0 H, RDW Coeff of Abdirahman 16.5 H, Plt Count 167, MPV 11.7, Immature Gran % (Auto) 0.600, Neut % (Auto) 81.2 H, Lymph % (Auto) 5.0 L, [place] % (Auto) 7.5, Eos % (Auto) 5.5 H, Baso % (Auto) 0.2, Absolute Neuts (auto) 6.6, Absolute Lymphs (auto) 0.41 L, Nucleated RBC % 0, Sodium 135 L, Potassium 4.7, Chloride 95 L, Carbon Dioxide 36.0 H, Anion Gap 5, BUN 60 H, Creatinine 1.57 H, Estim Creat Clear Calc 32.80, Est GFR (MDRD) Af Amer 55 L, Est GFR (MDRD) Non-Af 45 L, BUN/Creatinine Ratio 38.2 H, Glucose 139 H, Calcium 8.9 Cardiology Labs/Tests 05/25/24 06:27: WBC 8.1, RBC 4.03 L, Hgb 11.9 L, Hct 38.3 L, MCV 95.0 H, MCH 29.5, MCHC 31.1 L, Plt Count 167, MPV 11.7, Immature Gran % (Auto) 0.600, Neut % (Auto) 81.2 H, Lymph % (Auto) 5.0 L, [place] % (Auto) 7.5, Eos % (Auto) 5.5 H, Baso % (Auto) 0.2, Absolute Neuts (auto) 6.6, Nucleated RBC % 0, Sodium 135 L, Potassium 4.7, Chloride 95 L, Carbon Dioxide 36.0 H, Anion Gap 5, BUN 60 H, Creatinine 1.57 H, Est GFR (MDRD) Af Amer 55 L, Est GFR (MDRD) Non-Af 45 L, BUN/Creatinine Ratio 38.2 H, Glucose 139 H, Calcium 8.9 Rhythm: EKG: ECHO: Stress Test: Cardiac Cath: PCI: CT Surgery: Holter monitor: EPS: PPM: CXR: Chest CT Scan: Physical Exam Const alert, oriented x3 and no apparent distress General Appearance: cooperative HEENT hearing grossly normal bilaterally Head and Scalp: atraumatic Eyes EOMs intact bilaterally Neck General: normal visual inspection Chest inspection of chest normal and palpation of chest normal Resp normal respiratory effort Auscultation: clear to auscultation bilaterally Cardio regular rate, regular rhythm, S1 normal heart sound and S2 normal heart sound Jugular Venous Distention: JVD GI normal to inspection, nondistended, normoactive bowel sounds Extremity normal capillary refill General Extremity: edema bilateral Peripheral Pulses: Yes pulses 2+ throughout and femoral pulses present Skin no rashes or lesions noted Neuro oriented x3 and CN's II-XII intact bilaterally Psych Appearance: grossly normal and appropriate Assessment & Plan Assessment/Plan (1) Ventricular fibrillation: PLAN: It appears that he had a V-fib episode which was aborted by his defibrillator. He had not been able to tolerate amiodarone in the past saying that it caused severe urinary retention which I found rather unusual. 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 My suspicion is that his urinary retention was not due to the amiodarone. After much discussion it appears that he had benign prostatic hyperplasia at that time. I have restarted the amiodarone he appears to be tolerating this thus far. Will see how he does over the next 24 hours. (2) Chronic combined systolic and diastolic CHF (congestive heart failure): PLAN: He does have evidence of heart failure with reduced ejection fraction most recent echocardiogram performed in March demonstrated an ejection fraction of 25%. It is said that he is allergic to the KALEIGH inhibitors. We will continue for now with intravenous Lasix. (3) H/O coronary artery bypass surgery: PLAN: He is status post coronary bypass surgery as noted above. He is not a candidate for revascularization again. (4) History of implantable cardiac defibrillator (ICD): PLAN: He does have an implantable defibrillator which will be interrogated by our device clinic. (5) Ischemic cardiomyopathy: PLAN: He has severe ischemic cardiomyopathy with an estimated ejection fraction of 25%. He will continue on the beta-mert hydralazine and isosorbide. (6) Essential hypertension: PLAN: His blood pressure appears to be low at this particular time and I will hold the isosorbide hydralazine and reduce the dose of the carvedilol. (7) Acute hypokalemia: PLAN: He needs to have his potassium aggressively replaced. His magnesium appears to be therapeutic. This is likely the cause of his defibrillator discharge through his cardiac dysrhythmia. PLAN: Plan His overall prognosis is rather guarded.
[2024-05-25] MEDS: Carvedilol 6.25 MG Tablet PO ×2 (10:03→18:11)
[2024-05-25] MEDS: Multivitamin (Healthy Eyes) Capsule 1 CAP PO ×2 (10:03→21:18)
[2024-05-25] MEDS: Docusate Sodium 100 MG Capsule PO ×2 (10:03→21:18)
[2024-05-25] MEDS: Cholecalciferol (Vit D3) 125 MCG CAPSULE (5,000 UNITS) PO (10:03)
[2024-05-25] MEDS: Ascorbic Acid 500 MG Tablet 1000 MG PO (10:03)
[2024-05-25] MEDS: Potassium Chloride Oral Tablet 20 MEQ 40 MEQ PO ×2 (10:03→18:11)
[2024-05-25] MEDS: Empagliflozin 10 MG Tablet PO (10:03)
[2024-05-25] MEDS: Polyethylene Glycol 3350 17 GM PACKET PO (10:27)
--- NOTE | 2024-05-25 11:33 | PCM.PN.HOSP ---
Subjective Subjective Continues to refuse his amiodarone despite multiple episodes of education Objective Data Objective Data Vital Signs: Vital Signs Temp Pulse Resp BP Pulse Ox O2 Del Method O2 Flow Rate 97.8 F 60 14 92/60 96 Nasal Cannula 2 05/25/24 10:00 05/25/24 10:00 05/25/24 10:00 05/25/24 10:00 05/25/24 10:20 05/25/24 10:00 05/25/24 10:20 Oxygen Flow Rate (L/min) 2 Oxygen Delivery Method Nasal Cannula Weight: 177 lb 14.609 oz Body Mass Index (BMI) 32.5 Intake & Output: Intake and Output for Last 24 Hours 05/24/24 05/25/24 05/26/24 03:59 03:59 03:59 Intake Total 450 / 450 200 / 200 Output Total 485 / 485 350 / 350 Balance 450 / 450 -285 / -285 -350 / -350 Lab / Micro Data 05/25/24 06:27 05/25/24 06:27 Labs: Laboratory Results - last 24 hr 05/25/24 06:27: WBC 8.1, RBC 4.03 L, Hgb 11.9 L, Hct 38.3 L, MCV 95.0 H, MCH 29.5, MCHC 31.1 L, RDW Std Deviation 58.0 H, RDW Coeff of Abdirahman 16.5 H, Plt Count 167, MPV 11.7, Immature Gran % (Auto) 0.600, Neut % (Auto) 81.2 H, Lymph % (Auto) 5.0 L, [place] % (Auto) 7.5, Eos % (Auto) 5.5 H, Baso % (Auto) 0.2, Absolute Neuts (auto) 6.6, Absolute Lymphs (auto) 0.41 L, Nucleated RBC % 0, PT 24.8 H, INR 2.3, Sodium 135 L, Potassium 4.7, Chloride 95 L, Carbon Dioxide 36.0 H, Anion Gap 5, BUN 60 H, Creatinine 1.57 H, Estim Creat Clear Calc 32.80, Est GFR (MDRD) Af Amer 55 L, Est GFR (MDRD) Non-Af 45 L, BUN/Creatinine Ratio 38.2 H, Glucose 139 H, Calcium 8.9 Physical Exam Narrative General: Alert, Oriented x3, Cooperative, No apparent distress HEENT: Atraumatic, PERRLA, EOMI, Normocephalic Oral: Moist Mucosa Neck: Supple, No JVD Lungs: Diminished, Normal air movement, No rhonchi, No wheeze, No rales Cardiovascular: Regular rate, Regular Rhythm, Normal S1, Normal S2, No murmurs Abdomen: Soft, Non Tender, Non-Distended, No Hepato-splenomegaly Extremities: Edema, Capillary Refill Less than 3 Seconds Skin: No rashes, No breakdown Musculoskeletal: No Tenderness to Palpation of Joints or Extremities Neurological: No focal neurological deficits, Motor Exam 5/5 strength throughout, Sensory exam intact to light touch and pain Psych/Mental Status: Normal Affect, Appropriate Assessment & Plan Assessment/Plan (1) Acute hypokalemia: (2) Ventricular fibrillation: (3) Atherosclerotic heart disease of [place] coronary artery without angina pectoris: QUALIFIERS: [place] vs. transplanted heart: [place] heart Qualified Code(s): I25.10 - Atherosclerotic heart disease of [place] coronary artery without angina pectoris (4) Hypoxia: (5) Chronic combined systolic and diastolic CHF (congestive heart failure): PLAN: Plan 1. 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 Continue with anticoagulation with Coumadin, INR is therapeutic ? Appreciate cardiology's assistance, continue with Lasix drip, he continues to refuse amiodarone despite multiple discussions on the fact that amiodarone does not cause urinary retention at all ? Potassium has been replaced ? Echo from 04/05/2024 with an EF of 25% stage II diastolic dysfunction ? Continue with Jardiance ?Will monitor make adjustments to his blood pressure medications 2. Chronic hypoxia ? Continue with his home oxygen requirements DVT: Coumadin Charges/Coding Visit Charges Inpatient E&M: 23542 Subs Hosp L2
[2024-05-25] MEDS: Furosemide 500 MG in Empty Viaflex 50 mL 1 EACH CONT INF (12:24)
[2024-05-25] MEDS: Jantoven 2 MG Tablet PO (18:10)
[2024-05-25] MEDS: Aspirin E.C. 81 MG Tablet PO (21:18)
[2024-05-25] MEDS: Atorvastatin Calcium 10 MG Tablet PO (21:18)
[2024-05-25] MEDS: Tamsulosin HCl 0.4 MG Capsule PO (21:19)
[2024-05-26] VITALS (9 sets, daily range): BP systolic 92–113; BP diastolic 58–67; PULSE 61–88; RESP 18; TEMP 36.4–36.6; O2SAT 86–97
[2024-05-26] MEDS: clonazePAM 0.5 MG Tablet PO ×3 (05:09→21:31)
[2024-05-26] MEDS: Furosemide 500 MG in Empty Viaflex 50 mL 1 EACH CONT INF (05:39)
[2024-05-26 07:20] LABS: International Normalized Ratio 2.8; Prothrombin Time (Protime)PT. 29.2 SECONDS (11.7-14.9)
[2024-05-26 07:35] LABS: Anion Gap 4 (5-15); BUN 57 mg/dL (7-18); BUN/Creat Ratio 43.5 RATIO (10-20); Calcium,Total 8.5 mg/dL (8.5-10.1); Chloride 95 mmol/L (98-107); Creatinine, Serum 1.31 mg/dL (0.70-1.30); EST Glomerular Filtration Rate 56 mL/min (>60); Est Glom Filt Rate - Afr Amer 67 mL/min (>60); Estimated Creatinine Clearance 39.31 ml/min; Glucose 143 mg/dL (74-106); Potassium 3.9 mmol/L (3.5-5.1); Sodium Level 137 mmol/L (136-145)
[2024-05-26] MEDS: Furosemide 40 MG Tablet PO ×2 (10:48→17:02)
[2024-05-26] MEDS: Empagliflozin 10 MG Tablet PO (10:49)
[2024-05-26] MEDS: Docusate Sodium 100 MG Capsule PO ×2 (10:50→21:25)
[2024-05-26] MEDS: Multivitamin (Healthy Eyes) Capsule 1 CAP PO ×2 (10:50→21:28)
[2024-05-26] MEDS: Potassium Chloride Oral Tablet 20 MEQ 40 MEQ PO ×2 (10:50→17:02)
[2024-05-26] MEDS: Carvedilol 6.25 MG Tablet PO ×2 (10:50→17:02)
[2024-05-26] MEDS: Ascorbic Acid 500 MG Tablet 1000 MG PO (10:50)
[2024-05-26] MEDS: Cholecalciferol (Vit D3) 125 MCG CAPSULE (5,000 UNITS) PO (10:51)
--- NOTE | 2024-05-26 13:59 | PCM.PN.HOSP ---
Subjective Subjective Doing well, no issues overnight. Still maintaining his oxygen saturations on his baseline home O2 Objective Data Objective Data Vital Signs: Vital Signs Temp Pulse Resp BP Pulse Ox O2 Del Method O2 Flow Rate 97.6 F L 67 18 103/59 L 94 Nasal Cannula 2 05/26/24 10:44 05/26/24 10:44 05/26/24 10:44 05/26/24 10:44 05/26/24 11:49 05/26/24 10:44 05/26/24 11:49 FiO2 95 05/26/24 08:24 Oxygen Flow Rate (L/min) [ 3 AMBULATING with Oxygen #2] Oxygen Flow Rate (L/min) [ 2 AMBULATING with Oxygen #1] Oxygen Flow Rate (L/min) [At 2 REST with Oxygen] Oxygen Flow Rate (L/min) 2 Oxygen Delivery Method Nasal Cannula Weight: 177 lb 14.609 oz Body Mass Index (BMI) 32.5 Intake & Output: Intake and Output for Last 24 Hours 05/25/24 05/26/24 05/27/24 03:59 03:59 03:59 Intake Total 200 / 200 729 / 729 589.93 / 589.93 Output Total 485 / 485 2825 / 2825 1500 / 1500 Balance -285 / -285 -2096 / -2096 -910.07 / -910.07 Lab / Micro Data 05/25/24 06:27 05/26/24 06:15 Labs: Laboratory Results - last 24 hr 05/26/24 06:15: PT 29.2 H, INR 2.8, Sodium 137, Potassium 3.9, Chloride 95 L, Carbon Dioxide 39.0 H, Anion Gap 4 L, BUN 57 H, Creatinine 1.31 H, Estim Creat Clear Calc 39.31, Est GFR (MDRD) Af Amer 67, Est GFR (MDRD) Non-Af 56 L, BUN/Creatinine Ratio 43.5 H, Glucose 143 H, Calcium 8.5 Physical Exam Narrative General: Alert, Oriented x3, Cooperative, No apparent distress HEENT: Atraumatic, PERRLA, EOMI, Normocephalic Oral: Moist Mucosa Neck: Supple, No JVD Lungs: Diminished, Normal air movement, No rhonchi, No wheeze, No rales Cardiovascular: Regular rate, Regular Rhythm, Normal S1, Normal S2, No murmurs Abdomen: Soft, Non Tender, Non-Distended, No Hepato-splenomegaly Extremities: Edema, Capillary Refill Less than 3 Seconds Skin: No rashes, No breakdown Musculoskeletal: No Tenderness to Palpation of Joints or Extremities Neurological: No focal neurological deficits, Motor Exam 5/5 strength throughout, Sensory exam intact to light touch and pain Psych/Mental Status: Normal Affect, Appropriate Assessment & Plan Assessment/Plan (1) Acute hypokalemia: (2) Ventricular fibrillation: (3) Atherosclerotic heart disease of [place] coronary artery without angina pectoris: QUALIFIERS: [place] vs. transplanted heart: [place] heart Qualified Code(s): I25.10 - Atherosclerotic heart disease of [place] coronary artery without angina pectoris (4) Hypoxia: (5) Chronic combined systolic and diastolic CHF (congestive heart failure): PLAN: Plan 1. 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 Continue with anticoagulation with Coumadin, INR is therapeutic ? Appreciate cardiology's assistance will transition to p.o. Lasix. He had gynecomastia with Aldactone to does not want to start that medication may need metolazone or something similar as an outpatient to assist with diuresis ? Will monitor for 1 more day and if stable can consider discharge tomorrow ? Potassium has been replaced ? Echo from 04/05/2024 with an EF of 25% stage II diastolic dysfunction ? Continue with Jardiance ?Will monitor make adjustments to his blood pressure medications ? Had a 20-minute discussion with family advance care planning between the differences of palliative care versus hospice care. Will make a referral for palliative care 2. Chronic hypoxia ? Continue with his home oxygen requirements DVT: Coumadin Charges/Coding Visit Charges Inpatient E&M: 89835 Subs Hosp L2
--- NOTE | 2024-05-26 16:00 | CASEMGMT ---
SONU MORENO received order for palliative consult from hospitalist. Palliative screening tool completed and sent to [facility]. [facility] over the weekend. Start of care planned for Wednesday. SONU MORENO in to update patient and family regarding palliative referral and [facility] start of care. Patient and family denied further needs or help at discharge. Green sheet placed on chart.
[2024-05-26] MEDS: Jantoven 2 MG Tablet PO (17:02)
[2024-05-26] MEDS: Atorvastatin Calcium 10 MG Tablet PO (21:26)
[2024-05-26] MEDS: Aspirin E.C. 81 MG Tablet PO (21:27)
[2024-05-26] MEDS: Tamsulosin HCl 0.4 MG Capsule PO (21:27)
[2024-05-27] VITALS (7 sets, daily range): BP systolic 96–130; BP diastolic 57–64; PULSE 59–70; RESP 17–19; TEMP 35.8–36.4; O2SAT 91–97
[2024-05-27 06:14] LABS: International Normalized Ratio 2.7; Prothrombin Time (Protime)PT. 28.5 SECONDS (11.7-14.9)
[2024-05-27] MEDS: clonazePAM 0.5 MG Tablet PO (06:22)
[2024-05-27 06:59] LABS: Anion Gap 4 (5-15); BUN 50 mg/dL (7-18); BUN/Creat Ratio 41.3 RATIO (10-20); Calcium,Total 8.7 mg/dL (8.5-10.1); Chloride 95 mmol/L (98-107); Creatinine, Serum 1.21 mg/dL (0.70-1.30); EST Glomerular Filtration Rate 61 mL/min (>60); Est Glom Filt Rate - Afr Amer 74 mL/min (>60); Estimated Creatinine Clearance 42.55 ml/min; Glucose 154 mg/dL (74-106); Sodium Level 138 mmol/L (136-145)
[2024-05-27] MEDS: Potassium Chloride Oral Tablet 20 MEQ 40 MEQ PO (10:06)
[2024-05-27] MEDS: Ascorbic Acid 500 MG Tablet 1000 MG PO (10:06)
[2024-05-27] MEDS: Multivitamin (Healthy Eyes) Capsule 1 CAP PO (10:06)
[2024-05-27] MEDS: Empagliflozin 10 MG Tablet PO (10:07)
[2024-05-27] MEDS: Cholecalciferol (Vit D3) 125 MCG CAPSULE (5,000 UNITS) PO (10:07)
[2024-05-27] MEDS: Docusate Sodium 100 MG Capsule PO (10:07)
--- NOTE | 2024-05-27 11:56 | DCINST_ITS ---
Discharge Instructions Diet Discharge Diet: Low fat / Low cholesterol and 6 Cup Fluid Restriction Activity Discharge Activity: Return to Normal Activity Dressing / Incision Call your doctor if you observe: Fever of 101 or Higher, Shortness of breath, Dizziness, Fainting spells, Swelling in the ankles, Chest pain and Increased palpitations (irregular heartbeat) Follow Up Care Test Results: Test results from this visit will be discussed in further detail at your follow- up appointment, if applicable. Discharge Plan Admission Admit Date/Time: 05/23/24 04:59 Attending Provider: James Cormier Primary Care Provider: Handy Beltran Consulting Providers: Miguel Farley; Sterling Lacy Discharge Orders/Prescriptions Prescriptions: New carvedilol 6.25 mg Tablet 6.25 mg PO BIDCM 30 Days Qty: 60 0RF Continued cholecalciferol (vitamin D3) 125 mcg (5,000 unit) tablet 125 mcg PO DAILY torsemide 20 mg tablet 40 mg PO BID Qty: 120 11RF clonazepam [Klonopin] 0.5 MG tablet 0.5 mg PO TID Patient Comments: ANXIETY aspirin 81 MG tablet 81 mg PO QHS Patient Comments: HEART ascorbic acid (vitamin C) 500 MG tablet 1,000 mg PO DAILY@0800 Patient Comments: SUPPLEMENT PreserVision AREDS-2 250-90-40-1 mg Capsule 1 tab PO BID albuterol sulfate 90 mcg/actuation HFA aerosol inhaler 2 puff inhalation Q4H PRN PRN (Reason: wheezing) atorvastatin 10 mg tablet 10 mg PO QHS Qty: 90 3RF tamsulosin 0.4 mg capsule 0.4 mg PO QHS warfarin 2 mg tablet 2 mg PO .COMPLEX Qty: 90 4RF Protocol: Dose Management Condition: Wednesday Dose/Route: 3 mg Instruction: 1 x 3 mg tablet Condition: Wednesday Dose/Route: 2 mg Instruction: 1 x 2 mg tablet Condition: Wednesday Dose/Route: 2 mg Instruction: 1 x 2 mg tablet Condition: Wednesday Dose/Route: 2 mg Instruction: 1 x 2 mg tablet Condition: Dose/Route: 2 mg Instruction: 1 x 2 mg tablet Condition: Wednesday Dose/Route: 2 mg Instruction: 1 x 2 mg tablet Condition: Wednesday Dose/Route: 3 mg Instruction: 1 x 3 mg tablet Protocol Text: Adjustment Start Date: Wednesday05/26/24 INR Value: 2.8 INR Date: 05/26/24 Recheck Date: 06/02/24 Patient Comments: Pt states he takes Wednesday, Wednesday, , Wednesday & Wednesday Rx Instructions: 2 mg orally daily Wed-Wed and 3mg Wed and Sundays; or use as directed; metolazone 2.5 mg tablet 2.5 mg PO .COMPLEX Qty: 15 3RF Rx Instructions: 2.5 mg orally 05/03 and 05/04 Thirty minutes before first am Torsemide, then once weekly.; potassium chloride 20 mEq tablet extended release 20 meq PO BID Qty: 180 3RF isosorbide mononitrate 30 mg tablet extended release 24 hr 30 mg PO DAILY Qty: 90 3RF Jardiance 10 mg tablet 10 mg PO DAILY Qty: 30 11RF hydralazine 10 mg tablet 10 mg PO TID Qty: 90 0RF warfarin 3 mg tablet 3 mg PO 4XW Qty: 60 3RF Protocol: Dose Management Condition: Wednesday Dose/Route: 3 mg Instruction: 1 x 3 mg tablet Condition: Wednesday Dose/Route: 2 mg Instruction: 1 x 2 mg tablet Condition: Wednesday Dose/Route: 2 mg Instruction: 1 x 2 mg tablet Condition: Wednesday Dose/Route: 2 mg Instruction: 1 x 2 mg tablet Condition: Dose/Route: 2 mg Instruction: 1 x 2 mg tablet Condition: Wednesday Dose/Route: 2 mg Instruction: 1 x 2 mg tablet Condition: Wednesday Dose/Route: 3 mg Instruction: 1 x 3 mg tablet Protocol Text: Adjustment Start Date: Wednesday05/26/24 INR Value: 2.8 INR Date: 05/26/24 Recheck Date: 06/02/24 Patient Comments: Pt takes Wednesday, Wednesday, Wednesday Rx Instructions: Use as directed Discontinued carvedilol 25 mg tablet 12.5 mg PO BID Qty: 180 3RF Referrals / Follow Up: Miguel Farley MD [Med Staff - Active Staff] - Within 1 Month Handy Beltran DO [Primary Care Provider] - Within 1 Week Disposition Disposition (needs filled in before D/C Order can be placed): Home Health Service
--- NOTE | 2024-05-27 15:09 | DS.PCM_ITS ---
Providers Date of Admission: 05/23/24 Primary Care Physician: Dr. Handy Beltran, DO Consultations 05/23/24 05:33 Consult: Cardiology Routine Consulting Provider: Miguel Farley Reason for Consult: Ventricular fibrillation EMERGENT Consult: Yes MD Notified: Yes Date Notified: 05/23/24 Time Notified: 05:03 Method of Notification: ED Physician Initiated Reason For Visit: VENTRICULAR FIBRILLATION HYPOKALEMIA Diagnosis Discharge Diagnosis (1) Acute hypokalemia: Status: Acute Code(s): E87.6 - Hypokalemia (2) Ventricular fibrillation: Status: Deleted Code(s): I49.01 - Ventricular fibrillation (3) Atherosclerotic heart disease of [place] coronary artery without angina pectoris: Status: Acute Code(s): I25.10 - Atherosclerotic heart disease of [place] coronary artery without angina pectoris Qualifiers: [place] vs. transplanted heart: [place] heart Qualified Code(s): I25.10 - Atherosclerotic heart disease of [place] coronary artery without angina pectoris (4) Hypoxia: Status: Acute Code(s): R09.02 - Hypoxemia (5) Chronic combined systolic and diastolic CHF (congestive heart failure): Status: Chronic Code(s): I50.42 - Chronic combined systolic (congestive) and diastolic (congestive) heart failure Plan 1. 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 Continue with anticoagulation with Coumadin, INR is therapeutic ? Appreciate cardiology's assistance will transition to p.o. Lasix. He had gynecomastia with Aldactone to does not want to start that medication may need metolazone or something similar as an outpatient to assist with diuresis ? Will monitor for 1 more day and if stable can consider discharge tomorrow ? Potassium has been replaced ? Echo from 04/05/2024 with an EF of 25% stage II diastolic dysfunction ? Continue with Jardiance ?Will monitor make adjustments to his blood pressure medications ? Had a 20-minute discussion with family advance care planning between the differences of palliative care versus hospice care. Will make a referral for palliative care 2. Chronic hypoxia ? Continue with his home oxygen requirements DVT: Coumadin Medications at Discharge Home Medications clonazepam 0.5 mg tablet (Klonopin) 0.5 mg PO TID anxiety 08/11/13 ascorbic acid (vitamin C) 500 mg tablet 1,000 mg PO DAILY@0800 supplement 07/11/15 aspirin 81 mg tablet,delayed release 81 mg PO QHS heart health 07/11/15 vit C 250 mg-vit E 90 mg-zinc 40 mg-copper 1 [id number] capsule (PreserVision AREDS-2) 1 tab PO BID eye vitamin 02/24/21 cholecalciferol (vitamin D3) 125 mcg (5,000 unit) tablet 125 mcg PO DAILY supplement 03/05/23 atorvastatin 10 mg tablet 10 mg PO QHS cholesterol #90 tabs 09/06/23 tamsulosin 0.4 mg capsule 0.4 mg PO QHS Prostate 10/13/23 warfarin 2 mg tablet 2 mg PO .COMPLEX blood thinner #90 TABLETS 02/17/24 torsemide 20 mg tablet 40 mg (2 x 20 mg) PO BID diuretic #120 tabs 04/28/24 metolazone 2.5 mg tablet 2.5 mg PO .COMPLEX #15 tabs 05/02/24 empagliflozin 10 mg tablet (Jardiance) 10 mg PO DAILY diabetes #30 tabs 05/09/24 isosorbide mononitrate 30 mg tablet,extended release 24 hr 30 mg PO DAILY heart health #90 tabs 05/09/24 hydralazine 10 mg tablet 10 mg PO TID blood pressure #90 tabs 05/12/24 warfarin 3 mg tablet 3 mg PO 4XW blood thinner #60 tabs 05/22/24 albuterol sulfate 90 mcg/actuation aerosol inhaler 2 puff inhalation Q4H PRN PRN wheezing 05/23/24 carvedilol 6.25 mg tablet 6.25 mg PO BIDCM 30 days #60 tabs 05/27/24 potassium chloride 20 mEq tablet,extended release 20 meq PO BID supplement 30 days #60 tabs 05/27/24 Hospital Course Operations None Procedures None Summary of Care Provided Minutes Spent on Discharge: 33 Hospital Course: Per HPI: DARRELL PRIETO, is a 84 M who presents to the emergency room with chief complaint of being defibrillated by his internal defibrillator. Patient states it happened while he was laying in bed this evening and has occurred multiple times. Patient denies any chest pain, shortness of breath, fevers or chills or nausea or vomiting or diarrhea. Patient laboratory studies show a CBC with a white blood cell count of 8.1, hemoglobin 11.6, hematocrit 37, platelets 136. BMP shows a sodium of 136, low potassium of 2.9 with a chloride of 90 and a bicarb of 36, BUN 52, creatinine 1.3, glucose 105, magnesium 2.4. Chest x-ray reveals moderate pleural effusions. Internal defibrillator/pacemaker was interrogated and showed bouts of ventricular fibrillation prior to being defibrillated. Patient will be admitted to PCU with correction of low potassium and consult to cardiology. Hospital Course: 1. 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 He was found to be significantly hypokalemic which is thought to be was initiating his arrhythmia. Initially cardiology attempted to place him on amiodarone however the patient refuses because he believes that it causes urinary retention despite multiple assurances that it does not. He was also having some lower blood pressure so his Coreg dosage was decreased from 12-1/2-6.25. He was able to be successfully diuresed on a Lasix drip and renal function actually improved on the day of discharge to 1.21. He had an echo on 04/05/2024 with an EF of 25% stage II diastolic dysfunction and cardiology felt that he would be able to be discharged on his home diuretics, they were recommending potentially Aldactone however he had an issue with gynecomastia the last time this was started so we will continue with his torsemide and metolazone on discharge. I did refill his potassium prescription as he thinks he is out. He does have a cardiology appointment on Wednesday which I encouraged him to keep, I recommend that he follow-up with his PCP in 3 to 5 days and to have close outpatient monitoring with lab work. He did have an ambulatory pulse ox that demonstrated need of 2 L nasal cannula at rest and with ambulation which is his baseline prescription. I have reviewed the oxygen testing, and this patient qualifies for the home equipment and portability. The patient is mobile in the home and the community. Physical Exam Narrative General: Alert, Oriented x3, Cooperative, No apparent distress HEENT: Atraumatic, PERRLA, EOMI, Normocephalic Oral: Moist Mucosa Neck: Supple, No JVD Lungs: Diminished, Normal air movement, No rhonchi, No wheeze, No rales Cardiovascular: Regular rate, Regular Rhythm, Normal S1, Normal S2, No murmurs Abdomen: Soft, Non Tender, Non-Distended, No Hepato-splenomegaly Extremities: Edema, Capillary Refill Less than 3 Seconds Skin: No rashes, No breakdown Musculoskeletal: No Tenderness to Palpation of Joints or Extremities Neurological: No focal neurological deficits, Motor Exam 5/5 strength throughout, Sensory exam intact to light touch and pain Psych/Mental Status: Normal Affect, Appropriate Weight / BMI Weight Weight: 177 lb 14.609 oz Body Mass Index (BMI) 32.5 ABG / Lab / Microbiology Data 05/25/24 06:27 05/27/24 05:00 Laboratory: Laboratory Results - last 24 hr 05/27/24 05:00: PT 28.5 H, INR 2.7, Sodium 138, Potassium 4.0, Chloride 95 L, C arbon Dioxide 39.0 H, Anion Gap 4 L, BUN 50 H, Creatinine 1.21, Estim Creat Clear Calc 42.55, Est GFR (MDRD) Af Amer 74, Est GFR (MDRD) Non-Af 61, B UN/Creatinine Ratio 41.3 H, Glucose 154 H, Calcium 8.7 D/C Instructions Discharge Diet: Low fat / Low cholesterol and 6 Cup Fluid Restriction Call your doctor if you observe: Fever of 101 or Higher, Shortness of breath, Dizziness, Fainting spells, Swelling in the ankles, Chest pain and Increased palpitations (irregular heartbeat) Meaningful Use Info Meaningful Use Meaningful Use Diagnoses (Choose all that apply): None applicable Ischemic Stroke Statin Dosing Therapy Reference: STATIN DOSE THERAPY REFERENCE: * Patients > 75 years receive moderate or high dose statin therapy. * Patients 75 years or YOUNGER should receive HIGH intensity statin dose unless contraindicated. You will be required to document reason for non-treatment if statin daily dose does not meet guidelines. HIGH DOSE STATIN THERAPY DAILY Atorvastatin > than or = to 40 mg Rosuvastatin > than or = to 20 mg Amlodipine + Atorvastatin > than or = to 2.5/40 mg Ezetimibe + Simvastatin 10/80 mg Simvastatin 80mg Discharge Plan Admission Admit Date/Time: 05/23/24 04:59 Attending Provider: James Cormier Primary Care Provider: Handy Beltran Consulting Providers: Miguel Farley; Sterling Lacy Discharge Orders/Prescriptions Prescriptions: New carvedilol 6.25 mg Tablet 6.25 mg PO BIDCM 30 Days Qty: 60 0RF Continued cholecalciferol (vitamin D3) 125 mcg (5,000 unit) tablet 125 mcg PO DAILY torsemide 20 mg tablet 40 mg PO BID Qty: 120 11RF clonazepam [Klonopin] 0.5 MG tablet 0.5 mg PO TID Patient Comments: ANXIETY aspirin 81 MG tablet 81 mg PO QHS Patient Comments: HEART ascorbic acid (vitamin C) 500 MG tablet 1,000 mg PO DAILY@0800 Patient Comments: SUPPLEMENT PreserVision AREDS-2 250-90-40-1 mg Capsule 1 tab PO BID albuterol sulfate 90 mcg/actuation HFA aerosol inhaler 2 puff inhalation Q4H PRN PRN (Reason: wheezing) potassium chloride 20 mEq tablet extended release 20 meq PO BID 30 Days Qty: 60 3RF atorvastatin 10 mg tablet 10 mg PO QHS Qty: 90 3RF tamsulosin 0.4 mg capsule 0.4 mg PO QHS warfarin 2 mg tablet 2 mg PO .COMPLEX Qty: 90 4RF Protocol: Dose Management Condition: Wednesday Dose/Route: 3 mg Instruction: 1 x 3 mg tablet Condition: Wednesday Dose/Route: 2 mg Instruction: 1 x 2 mg tablet Condition: Wednesday Dose/Route: 2 mg Instruction: 1 x 2 mg tablet Condition: Wednesday Dose/Route: 2 mg Instruction: 1 x 2 mg tablet Condition: Dose/Route: 2 mg Instruction: 1 x 2 mg tablet Condition: Wednesday Dose/Route: 2 mg Instruction: 1 x 2 mg tablet Condition: Wednesday Dose/Route: 3 mg Instruction: 1 x 3 mg tablet Protocol Text: Adjustment Start Date: Wednesday05/26/24 INR Value: 2.8 INR Date: 05/26/24 Recheck Date: 06/02/24 Patient Comments: Pt states he takes Wednesday, Wednesday, , Wednesday & Wednesday Rx Instructions: 2 mg orally daily Wed-Wed and 3mg Wed and Sundays; or use as directed; metolazone 2.5 mg tablet 2.5 mg PO .COMPLEX Qty: 15 3RF Rx Instructions: 2.5 mg orally 05/03 and 05/04 Thirty minutes before first am Torsemide, then once weekly.; isosorbide mononitrate 30 mg tablet extended release 24 hr 30 mg PO DAILY Qty: 90 3RF Jardiance 10 mg tablet 10 mg PO DAILY Qty: 30 11RF hydralazine 10 mg tablet 10 mg PO TID Qty: 90 0RF warfarin 3 mg tablet 3 mg PO 4XW Qty: 60 3RF Protocol: Dose Management Condition: Wednesday Dose/Route: 3 mg Instruction: 1 x 3 mg tablet Condition: Wednesday Dose/Route: 2 mg Instruction: 1 x 2 mg tablet Condition: Wednesday Dose/Route: 2 mg Instruction: 1 x 2 mg tablet Condition: Wednesday Dose/Route: 2 mg Instruction: 1 x 2 mg tablet Condition: Dose/Route: 2 mg Instruction: 1 x 2 mg tablet Condition: Wednesday Dose/Route: 2 mg Instruction: 1 x 2 mg tablet Condition: Wednesday Dose/Route: 3 mg Instruction: 1 x 3 mg tablet Protocol Text: Adjustment Start Date: Wednesday05/26/24 INR Value: 2.8 INR Date: 05/26/24 Recheck Date: 06/02/24 Patient Comments: Pt takes Wednesday, Wednesday, Wednesday Rx Instructions: Use as directed Discontinued carvedilol 25 mg tablet 12.5 mg PO BID Qty: 180 3RF Referrals / Follow Up: Miguel Farley MD [Med Staff - Active Staff] - Within 1 Month Handy Beltran DO [Primary Care Provider] - Within 1 Week Disposition Disposition (needs filled in before D/C Order can be placed): Home Health Service Charges/Coding Visit Charges Inpatient E&M: 73896 Disch Hosp >30min
== END 2024-05-27 16:03 | disposition home health service (06) | DRG 640 ==
LOC: ED 04:23 → PCU 04:56
PROVIDERS: Admitting Provider Family Medicine; Emergency Provider Emergency Medicine; PCP Student in an Organized Health Care Education/Training Program; Visit Provider Family Medicine
DX: E87.6 Hypokalemia (principal); I49.01 Ventricular fibrillation; I50.42 Chronic combined systolic (congestive) and diastolic (congestive) heart failure; I11.0 Hypertensive heart disease with heart failure; I34.0 Nonrheumatic mitral (valve) insufficiency; I25.5 Ischemic cardiomyopathy; E78.5 Hyperlipidemia, unspecified; I45.10 Unspecified right bundle-branch block; I25.82 Chronic total occlusion of coronary artery; I25.10 Atherosclerotic heart disease of native coronary artery without angina pectoris; Z51.5 Encounter for palliative care; Z95.5 Presence of coronary angioplasty implant and graft; Z79.82 Long term (current) use of aspirin; Z79.01 Long term (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 of 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; R09.02 Hypoxemia; Z79.2 Long term (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 of antibiotics; Z79.84 Long term (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 of oral hypoglycemic drugs; Z95.1 Presence of aortocoronary bypass graft; Z95.810 Presence of automatic (implantable) cardiac defibrillator
CPT/HCPCS: 36415; 71045; 80048; 83735; 84100; 85025; 85610; 93005; 97116; 97162; 97166; 97530; 97535; 97802; 99285; A4216; J1940

== ENCOUNTER 2024-06-20 15:00 | Outpatient (RCR) | payer MEDICARE, SELFPAY ==
[2024-06-13 14:52] VITALS: BP 90/56; PULSE 67; RESP 18; TEMP 36.2; BMI 29.2
--- NOTE | 2024-06-13 15:54 | PCM.WC.HP ---
History of Present Illness Date of Service: 06/13/24 Chief Complaint: Bilateral lower extremity swelling, edema, venous stasis dermatitis, and venous stasis ulcerations History of Wound: This is an 84-year-old male who presented with bilateral lower extremity swelling and edema, as well as bilateral venous stasis dermatitis and venous ulcerations in his lower extremities. The open ulcerations are said to have been present for approximately 3 months. The swelling and edema in his legs are said to have been present for much longer. The patient is frail and debilitated, as well as oxygen dependent. He is on 2 L of oxygen by nasal cannula at home. The patient is accompanied by his and adult son. He suffers from multiple pre-existing medical problems, which are listed herein. These include congestive heart failure, ischemic cardiomyopathy, nonrheumatic mitral valve insufficiency, atrial fibrillation, and atherosclerotic heart disease with angina. He has previously undergone coronary revascularization by means of CABG as well as cardiac stent placement. A cardiac defibrillator is also in place. The patient's activity is limited, and he relies on a walker to assist in his ambulation. He denies a history of lower extremity thrombophlebitis. He has recently been sleeping in a recliner at night, with his legs in a dependent position. He denies a history of smoking. Cardiac management is overseen locally by Dr. Farley. His appetite is said to be fair. He is not diabetic. The patient presented with superficial ulcerations and intact blisters on the distal aspect of both lower extremities. [facility] Medical History (Updated 06/13/24 @ 16:[address] Kee Garcia MD) Venous stasis ulcer Wallenberg syndrome Nonrheumatic mitral (valve) insufficiency History of non-ST elevation myocardial infarction (NSTEMI) (05/27/21) [facility] (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 of 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 Longstanding persistent atrial fibrillation Personal history of colon cancer, stage III Hyperlipidemia Venous stasis ulcer Venous stasis dermatitis Edema of both legs Localized swelling of both lower legs Frailty Old age Debility History of colon cancer, stage III Atrial flutter Hypoxia Acute on chronic systolic CHF (congestive heart failure), NYHA class 4 Ventricular tachycardia, incessant Essential hypertension Ischemic cardiomyopathy Atherosclerotic heart disease of [place] coronary artery without angina 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 (congestive heart failure) History of chronic CHF Pneumonia Ventricular tachycardia (paroxysmal) Nonrheumatic mitral (valve) insufficiency Anxiety Atherosclerosis of coronary artery bypass graft of [place] heart with angina pectoris LV (left ventricular) mural thrombus Wears glasses History of steroid therapy Arthritis Kidney stone Back pain Stroke/cerebrovascular accident History of hiatal hernia Non-smoker History of pain when walking Osteoarthritis Atrial fibrillation Personal history of colonic polyps Colon cancer History of stroke Home Medications ?Medication ?Instructions ?Recorded ?Last Taken ?Type clonazepam 0.5 mg tablet (Klonopin) 0.5 mg PO TID anxiety 08/11/13 12/07/22 History ascorbic acid (vitamin C) 500 mg 1,000 mg PO DAILY@0800 supplement 07/11/15 05/22/24 History tablet aspirin 81 mg tablet,delayed 81 mg PO QHS heart health 07/11/15 05/22/24 20:00 History release vit C 250 mg-vit E 90 mg-zinc 40 1 tab PO BID eye vitamin 02/24/21 05/22/24 History mg-copper 1 [id number]-[id number]-[id number] capsule (PreserVision AREDS-2) cholecalciferol (vitamin D3) 125 125 mcg PO DAILY supplement 03/05/23 05/22/24 History mcg (5,000 unit) tablet atorvastatin 10 mg tablet 10 mg PO QHS cholesterol #90 tabs 09/06/23 Unknown Rx tamsulosin 0.4 mg capsule 0.4 mg PO QHS Prostate 10/13/23 Unknown History warfarin 2 mg tablet 2 mg PO .COMPLEX blood thinner #90 02/17/24 Unknown Rx TABLETS metolazone 2.5 mg tablet 2.5 mg PO .COMPLEX #15 tabs 05/02/24 Unknown Rx empagliflozin 10 mg tablet 10 mg PO DAILY diabetes #30 tabs 05/09/24 Unknown Rx (Jardiance) isosorbide mononitrate 30 mg 30 mg PO DAILY heart health #90 05/09/24 Unknown Rx tablet,extended release 24 hr tabs warfarin 3 mg tablet 3 mg PO 4XW blood thinner #60 tabs 05/22/24 Unknown Rx albuterol sulfate 90 mcg/actuation 2 puff inhalation Q4H PRN PRN 05/23/24 Unknown History aerosol inhaler wheezing carvedilol 6.25 mg tablet 6.25 mg PO BIDCM 30 days #60 tabs 05/27/24 Unknown Rx potassium chloride 20 mEq 20 meq PO BID supplement 30 days 05/27/24 Unknown Rx tablet,extended release #60 tabs torsemide 20 mg tablet 20 mg PO .COMPLEX #360 tabs 06/06/24 Unknown Rx hydralazine 10 mg tablet 10 mg PO TID blood pressure 90 06/07/24 Unknown Rx days #270 tabs guaifenesin 600 mg tablet, 600 mg PO BID 06/09/24 Unknown History extended release 12 hr (Mucinex) hydrochlorothiazide 25 mg tablet 25 mg PO QDAY 06/09/24 Unknown History Allergy/AdvReac Type Severity Reaction Status Date / Time amiodarone AdvReac Severe Severe Verified 06/09/24 14:05 urinary retention requiring catheter NAHID Inhibitors AdvReac Other Verified 06/09/24 14:05 hydrochlorothiazide AdvReac Other Verified 06/09/24 14:05 levofloxacin (From Levaquin) AdvReac aching Verified 06/09/24 14:05 legs trouble walking spironolactone AdvReac Other Verified 06/09/24 14:05 Family History Father Hypertension Heart disease Surgical History History of coronary artery stent placement (05/27/21) History of implantable cardiac defibrillator (ICD) (02/10/17) H/O coronary artery bypass surgery (08/27/05) History of left heart catheterization History of ankle fusion History of right knee joint replacement History of colonoscopy (2016) History of left hip replacement History of cholecystectomy Hx of cataract surgery History of colon surgery Social History household members: spouse Smoking Status: Never smoker alcohol intake: never substance use type: does not use caffeine: Yes Type: coffee Number of servings: 1 Vital Signs Vital Signs Vital Signs: 06/13/24 14:52 Temperature 97.1 F L Temperature Source Temporal Pulse Rate 67 Respiratory Rate 18 Blood Pressure 90/56 L Blood Pressure Mean 67 Blood Pressure Source Monitor Blood Pressure Position Semi-Fowlers Blood Pressure Location Left Arm Weight Weight: 160 lb Body Mass Index (BMI) 29.2 Physical Exam Const alert, oriented x3, no apparent distress, average body habitus and no limitations Constitutional Narrative: The patient appears weak and frail. He is alert and appropriate. The patient's BMI is 29.3. General Appearance: cooperative, comfortable and well developed Orientation / Consciousness: awake, oriented to person, oriented to place and oriented to time Exam Limitations: no limitations HEENT normocephalic and head/scalp atraumatic Head and Scalp: normal to inspection, normocephalic and atraumatic Face and Sinus: normal facial exam Nose: external nose normal External Ear: external ears normal Eyes PERRL and EOMs intact bilaterally General Eye: normal appearance of both eyes Neck full ROM Resp normal respiratory effort, normal air movement, no retractions and no use of accessory muscles Resp Narrative: Respirations appear normal and unlabored. A nasal cannula is noted to be in place. Effort and Inspection: able to speak in complete sentences and symmetric chest movement Extremity no calf tenderness General Extremity: Negative for clubbing or cyanosis Skin Wound Narrative: Moderate swelling and edema are noted bilaterally in the patient's lower extremities. A superficial ulceration is noted on the distal right lower extremity. Two superficial ulcerations are noted on the distal left lower extremity. They appear to be confined to the dermis, without extension into the subcutaneous tissues. The dimensions of each are documented elsewhere. They are generally pink and healthy in appearance, with little or no bioburden noted. There is a generally diffuse venous stasis dermatitis in the gaiter areas of both lower extremities. Several intact blisters are noted bilaterally. There is no sign of infection or cellulitis. Neuro oriented x3, CN's II-XII intact bilaterally, moves all extremities and no focal motor deficits Sensorium / Orientation: awake, alert, oriented to person, oriented to place and oriented to time Psych Appearance: grossly normal and appropriate Attitude: calm Activity / Motor Behavior: appropriate eye contact Speech: normal speech Mood & Affect: euthymic mood Thought Process: normal thought process Thought Content: normal thought content Attention / Concentration: attention grossly intact Debridement Note Debridement Note No debridement was completed: No debridement was completed today Post-Debridement Measurements and Additional Note: Post-Debridement Measurements/Treatment - Nurse 1 - General Ulcer Assessment Start: 06/13/24 14:52 Freq: Status: Active Protocol: BO.SONAM Activity Type Activity Date Activity User E-sign Co-sign Detail Recorded Client Recorded Date Recorded By Document 06/13/24 14:52 RB [id number] 06/13/24 15:02 RB 06/13/24 14:52 WC - Today's Visit Information Type of service Initial Visit Arrival Mode Wheelchair Transfer Assistance Manual Patient Identification Verified (Name & No ) Patient Requires Transmission-Based Yes Precautions Safety Precautions Fall Prevention Height and Weight Height 5 ft 2 in Weight 160 lb Weight in Pounds 160.0 lbs Body Mass Index (BMI) 29.2 BMI Classification Overweight BSA - Harvey 1.74 Vital Signs Temperature (97.8 F-99.1 F) 97.1 F L Temperature Source Temporal Pulse Rate (60-100) 67 Pulse Location Monitor Respiratory Rate (12-18) 18 Respiratory rate source Observation Blood Pressure (90/60-120/80) 90/56 L Blood Pressure Mean 67 Source Monitor Position Semi-Fowlers Blood Pressure Location Left Arm History Since Last Visit- (Skip if this is Patient's initial visit) Have you changed medications since your No last visit? Any new allergies or adverse reactions No Had a fall/change in ADL's that may No increase risk of falls Signs or symptoms of abuse and/or No neglect since last visit Have you been in the hospital since your No last visit? Has dressing in place as prescribed Yes Has compression in place as prescribed Yes Has offloadiing in place as prescribed No Experienced any changes in pain level or No management Pain Scale: 0-10 Numeric Is Patient Pain Free? No LLE -Description Aching -Intensity 7 -Duration (hours) Acute -Pain Behavior Irritability -Pain Aggravating Factors ADL's -Alleviating Factors/Interventions None Lower Extremity Assessment/ Foot Assessment/ Toe Nail Assessment Right -Posterior Tibial Palpable Yes -Dorsalis Pedis Palpable Yes -Extremity Color Pale -Hair Growth on Legs No -Hair Growth on Toes No -Temperature of Extremity Cool -Capillary Refill Greater than 3 Seconds -Dependent Rubor No -Blanched when Elevated No -Lipodermatosclerosis No -Other Deformity No -Prior Foot Ulcer No -Charcot Joint No -Prior Amputation No -Thick Yes -Discolored Yes -Deformed Yes -Improper Length & Hygeine No Left -Posterior Tibial Palpable Yes -Dorsalis Pedis Palpable Yes -Extremity Color Normal -Hair Growth on Legs No -Hair Growth on Toes No -Temperature of Extremity Cool -Capillary Refill Greater than 3 Seconds -Dependent Rubor No -Blanched when Elevated No -Lipodermatosclerosis No -Other Deformity No -Prior Foot Ulcer No -Charcot Joint No -Prior Amputation No -Thick Yes -Discolored Yes -Deformed Yes -Improper Length & Hygeine No Neuropathy Assessment Feet - Top Side and Bottom <Entered> (a) Communication Assessment Preferred language Belgian Product Owner Required No Able to Read Yes Able to Write Yes Communication Tools None Caregiver Communication Skills No Impairment Impairment Right Hearing Abillity Normal Left Hearing Abillity Normal Visual Assistive Devices Glasses Teaching Assessment Preferences Verbal,Written, Demonstration Barriers to Learning None Readiness To Learn Good Willingness to Engage in Self Management Med Activies Readiness to Engage in Self Management Med Activities Anxiety Level Calm Cooperation Cooperative Perception Coherent Interest in Health Problem Asks Questions Education Importance Acknowledges Need Does Patient Smoke tobacco or other No substances Smoking Status Never smoker Is Patient Diabetic No Functional Assessment Recent Decline in Ability to Perform Ambulation, Bathing,Lower Body Dressing, Transferring Assistive Device With Patient Yes Culture/Caodaism/Advertisement Distributor Cultural/Caodaism Needs that may affect No Treatment Plan Would you allow our [facility] bindery worker to No meet you for the purpose of spiritual/ emotional support? Advertisement Distributor to contact place of hoahaoism No Teaching: Wound Center *Welcome to the Wound Center -Person Taught Patient,Family -Teaching Method Demonstration -Response to teaching Verbalize Understanding (a) 1 - + throughout WC - Nurse 1 - General Ulcer Measurement Start: 06/13/24 14:52 Freq: Status: Active Protocol: Activity Type Activity Date Activity User E-sign Co-sign Detail Recorded Client Recorded Date Recorded By Document 06/13/24 14:52 RB [id number] 06/13/24 15:02 RB 06/13/24 14:52 Wound Center Nurse 1 2. LLE - superior lateral -Combined with other wound No -Current Size (cm) - Length 8.1 -Current Size (cm) - Width 3.9 -Current Size (cm) - Depth 0.1 -Total Square Cm 31.59 -Photo Taken Yes -Epithelialization Large 67-100% -Tunneling No -Undermining/Tunneling No -Circular Undermining No -Exudate Amt Large -Exudate Type Serosanguineous -Wound Margin Distinct, Outline Attached -Granulation Amt Medium (34-66%) -Granulation Quality [place] -Slough/Fibrin Yes -Necrosis Amt Medium (34-66%) -Necrotic Tissue Type Adherent Slough -Structure Exposed N/A -Texture (Keren-wound Skin Appearance) Assessed -Moisture (Keren-wound Skin Appearance) Assessed, Weeping -Color (Keren-wound Skin Appearance) Assessed -Temperature (Keren-wound Skin No Abnormality Appearance) (Pt Warm) -Tenderness on Palpation (Keren-wound No Skin Appearance) -Ulcer Cleansing Wound Cleanser -Foul Odor after Cleansing No -Anesthetic Used 4% Lidocaine Solution 1. RLE - lateal -Combined with other wound No -Current Size (cm) - Length 1.7 -Current Size (cm) - Width 2.4 -Current Size (cm) - Depth 0.1 -Total Square Cm 4.08 -Photo Taken Yes -Tunneling No -Undermining/Tunneling No -Circular Undermining No -Exudate Amt Large -Exudate Type Serosanguineous -Wound Margin Distinct, Outline Attached -Granulation Amt Large (67-100%) -Granulation Quality [place] -Slough/Fibrin Yes -Necrosis Amt Small (1-33%) -Necrotic Tissue Type Adherent Slough -Structure Exposed N/A -Texture (Keren-wound Skin Appearance) Assessed -Moisture (Keren-wound Skin Appearance) Assessed, Weeping -Color (Keren-wound Skin Appearance) Assessed -Temperature (Keren-wound Skin No Abnormality Appearance) (Pt Warm) -Tenderness on Palpation (Keren-wound No Skin Appearance) -Ulcer Cleansing Wound Cleanser -Foul Odor after Cleansing No -Anesthetic Used 4% Lidocaine Solution Lower Limb Edema Present Yes Right Calf (cm) 41 Right Ankle (cm) 22.8 Left Calf (cm) 34.5 Left Ankle (cm) 23.7 WC - Nurse 2 - General Ulcer CM Notes Start: 06/13/24 14:52 Freq: Status: Active Protocol: Activity Type Activity Date Activity User E-sign Co-sign Detail Recorded Client Recorded Date Recorded By Document 06/13/24 15:26 DS [id number] 06/13/24 15:42 DS 06/13/24 15:26 Wound Center Nurse 2 3. LLE inferior lateral -Time 15:26 -Correct Patient Yes -Procedure Performed No -Post Debridement (cm) - Length 5.0 -Post Debridement (cm) - Width 4.0 -Post Debridement (cm) - Depth 0.1 -Total Square (Post) (cm) 20.00 -Area of Debridement (cm) - Length 5.0 -Area of Debridement (cm) - Width 4.0 -Total Square (Area) (cm) 20.00 -Tunneling No -Undermining/Tunneling No -Circular Undermining No -Wound/Ulcer Outcome Not Healed 2. LLE - superior lateral -Time 15:27 -Correct Patient Yes -Procedure Performed No -Post Debridement (cm) - Length 1.8 -Post Debridement (cm) - Width 2.0 -Post Debridement (cm) - Depth 0.1 -Total Square (Post) (cm) 3.60 -Area of Debridement (cm) - Length 1.8 -Area of Debridement (cm) - Width 2.0 -Total Square (Area) (cm) 3.60 -Tunneling No -Undermining/Tunneling No -Circular Undermining No -Wound/Ulcer Outcome Not Healed 1. RLE - lateal -Time 15:26 -Correct Patient Yes -Procedure Performed No -Post Debridement (cm) - Length 1.8 -Post Debridement (cm) - Width 2.3 -Post Debridement (cm) - Depth 0.1 -Total Square (Post) (cm) 4.14 -Area of Debridement (cm) - Length 1.8 -Area of Debridement (cm) - Width 2.3 -Total Square (Area) (cm) 4.14 -Tunneling No -Undermining/Tunneling No -Circular Undermining No -Wound/Ulcer Outcome Not Healed Pain Scale: 0-10 Numeric Is Patient Pain Free? Yes Lab / Micro Data Labs: Laboratory Tests 05/25/24 05/27/24 06:27 05:00 WBC 8.1 Hgb 11.9 L Hct 38.3 L Plt Count 167 PT 28.5 H INR 2.7 Sodium 138 Potassium 4.0 Chloride 95 L Carbon Dioxide 39.0 H BUN 50 H Creatinine 1.21 Glucose 154 H Calcium 8.7 Charges/Coding Visit Charges Office Visits / Consults: [id number] OV L4 New 45min Assessment/Plan Assessment/Plan (1) Venous stasis ulcer: CODE(S): I83.009 - Varicose veins of unspecified lower extremity with ulcer of unspecified site; L97.909 - Non-pressure chronic ulcer of unspecified part of unspecified lower leg with unspecified severity QUALIFIERS: Venous stasis ulcer site: calf Varicose vein presence: without varicose veins Laterality: right Non-pressure ulcer stage: limited to breakdown of skin Qualified Code(s): I87.2 - Venous insufficiency (chronic) (peripheral); L97.211 - Non-pressure chronic ulcer of right calf limited to breakdown of skin (2) Venous stasis ulcer: CODE(S): I83.009 - Varicose veins of unspecified lower extremity with ulcer of unspecified site; L97.909 - Non-pressure chronic ulcer of unspecified part of unspecified lower leg with unspecified severity QUALIFIERS: Venous stasis ulcer site: calf Varicose vein presence: without varicose veins Laterality: left Non-pressure ulcer stage: limited to breakdown of skin Qualified Code(s): I87.2 - Venous insufficiency (chronic) (peripheral); L97.221 - Non-pressure chronic ulcer of left calf limited to breakdown of skin (3) Venous stasis dermatitis: CODE(S): I87.2 - Venous insufficiency (chronic) (peripheral) (4) Edema of both legs: CODE(S): R60.0 - Localized edema (5) Localized swelling of both lower legs: CODE(S): R22.43 - Localized swelling, mass and lump, lower limb, bilateral (6) Frailty: CODE(S): R54 - Age-related physical debility (7) Debility: CODE(S): R53.81 - Other malaise (8) Atrial flutter: CODE(S): I48.92 - Unspecified atrial flutter (9) Hypoxia: CODE(S): R09.02 - Hypoxemia (10) Bronchiectasis: CODE(S): J47.9 - Bronchiectasis, uncomplicated QUALIFIERS: Bronchiectasis type: uncomplicated Qualified Code(s): J47.9 - Bronchiectasis, uncomplicated (11) Acute on chronic systolic CHF (congestive heart failure), NYHA class 4: CODE(S): I50.23 - Acute on chronic systolic (congestive) heart failure (12) Ventricular tachycardia, incessant: CODE(S): I47.29 - Other ventricular tachycardia (13) H/O coronary artery bypass surgery: CODE(S): Z95.1 - Presence of aortocoronary bypass graft (14) History of implantable cardiac defibrillator (ICD): CODE(S): Z95.810 - Presence of automatic (implantable) cardiac defibrillator (15) Ischemic cardiomyopathy: CODE(S): I25.5 - Ischemic cardiomyopathy (16) Essential hypertension: CODE(S): I10 - Essential (primary) hypertension (17) Chronic combined systolic and diastolic CHF (congestive heart failure): CODE(S): I50.42 - Chronic combined systolic (congestive) and diastolic (congestive) heart failure (18) Hyperlipidemia: CODE(S): E78.5 - Hyperlipidemia, unspecified QUALIFIERS: Hyperlipidemia type: unspecified Qualified Code(s): E78.5 - Hyperlipidemia, unspecified (19) Atherosclerotic heart disease [place] coronary artery w/angina pectoris: CODE(S): I25.119 - Atherosclerotic heart disease of [place] coronary artery with unspecified angina pectoris (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: CODE(S): Z79.01 - 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 (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 of 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 (21) Nonrheumatic mitral (valve) insufficiency: CODE(S): I34.0 - Nonrheumatic mitral (valve) insufficiency (22) Wallenberg syndrome: CODE(S): G46.3 - Brain stem stroke syndrome (23) History of non-ST elevation myocardial infarction (NSTEMI): CODE(S): I25.2 - Old myocardial infarction (24) Longstanding persistent atrial fibrillation: CODE(S): I48.11 - Longstanding persistent atrial fibrillation (25) Stroke/cerebrovascular accident: CODE(S): I63.9 - Cerebral infarction, unspecified (26) History of hiatal hernia: CODE(S): Z87.19 - Personal history of other diseases of the digestive system (27) Osteoarthritis: CODE(S): M19.90 - Unspecified osteoarthritis, unspecified site (28) Personal history of colon cancer, stage III: CODE(S): Z85.038 - Personal history of other malignant neoplasm of large intestine (29) History of left heart catheterization: CODE(S): Z98.890 - Other specified postprocedural states (30) History of coronary artery stent placement: CODE(S): Z95.5 - Presence of coronary angioplasty implant and graft (31) History of ankle fusion: CODE(S): Z98.1 - Arthrodesis status (32) History of right knee joint replacement: CODE(S): Z96.651 - Presence of right artificial knee joint (33) History of colonoscopy: CODE(S): Z98.890 - Other specified postprocedural states (34) History of left hip replacement: CODE(S): Z96.642 - Presence of left artificial hip joint (35) History of cholecystectomy: CODE(S): Z90.49 - Acquired absence of other specified parts of digestive tract (36) Hx of cataract surgery: CODE(S): Z98.49 - Cataract extraction status, unspecified eye (37) History of colon surgery: CODE(S): Z98.890 - Other specified postprocedural states (38) History of colon cancer, stage III: CODE(S): Z85.038 - Personal history of other malignant neoplasm of large intestine (39) Old age: CODE(S): R54 - Age-related physical debility PLAN: Plan This is an 84-year-old male who presented with swelling and edema in his lower extremities bilaterally, associated with blisters, dermatitic changes, and ulcerations in each leg. He suffers from debility and frailty, and his ambulation is limited. He sits throughout the day, and has recently been sleeping in a recliner with his legs in a dependent position. The patient's and adult son have accompanied the patient to his visit today. A lengthy discussion has been undertaken with regard to the recommended measures for management. The patient has been encouraged to sleep on a flat mattress at night. He has been encouraged to elevate his lower extremities as much as possible, during daytime hours. As described to the patient and his family, elevation is to be to heart level, or higher. Prolonged idle sitting has been discouraged. Compression is to be an important component of the patient's management, and the recent use of Nahid wraps and Tubigrips have proven to be insufficient. We are to implement the use of the Unna boots bilaterally, which will provide the necessary compression, and the zinc oxide is anticipated to be therapeutic for the patient's superficial ulcerations and dermatitis. Because of the weeping from the patient's dermatitis and ulcerations, it may be necessary to change the Unna boot compression more than twice a week. Fortunately, [facility] home health nursing is already involved in the patient's care, and they can collaborate with Wound Center nursing staff to provide the the necessary management. The Wound Center nursing staff will collaborate with home health nursing personnel. It is important to note that there has been consideration of the patient's history of heart disease and congestive heart failure, with acknowledgment that implementing additional compression to the patient's lower extremities could exacerbate his heart failure symptoms. This has been discussed in detail with the patient and his family at the bedside. It has been discussed that the patient and the family should be aware of signs such as shortness of breath, difficulty breathing, a decrease in oxygen saturation, increased breathing rate, stridor, etc., and that they should seek medical attention without delay should the symptoms occur. The nursing staff has been instructed to apply the Unna boots with somewhat less compression than usual, with the thought that increasing degrees of compression will be applied in the coming weeks, as tolerated by the patient. The patient's questions, and those of his family, have been answered. Interface will occur with the patient's home health nursing staff. The patient is to return in 1 week for reevaluation. Total time: 48 minutes
--- NOTE | 2024-06-16 11:33 | WC ---
PHOTO 06/13/24 RIGHT LE
--- NOTE | 2024-06-16 11:40 | WC ---
PHOTO 06/13/24 [place]
[2024-06-20 15:28] VITALS: BP 84/51; PULSE 62; RESP 16; TEMP 36.2; BMI 29.2
--- NOTE | 2024-06-20 21:58 | PCM.WC.HP ---
History of Present Illness Date of Service: 06/20/24 Chief Complaint: Bilateral lower extremity swelling, edema, venous stasis dermatitis, and venous stasis ulcerations History of Wound: This is an 84-year-old male who presented with bilateral lower extremity swelling and edema, as well as bilateral venous stasis dermatitis and venous ulcerations in his lower extremities. The open ulcerations had been present for approximately 3 months. The swelling and edema in his legs had been present for much longer. The patient is frail and debilitated, as well as oxygen dependent. He is on 2 L of oxygen by nasal cannula at home. The patient is accompanied by his and adult son. He suffers from multiple pre-existing medical problems, which are listed herein. These include congestive heart failure, ischemic cardiomyopathy, nonrheumatic mitral valve insufficiency, atrial fibrillation, and atherosclerotic heart disease with angina. He has previously undergone coronary revascularization by means of CABG as well as cardiac stent placement. A cardiac defibrillator is also in place. The patient's activity is limited, and he relies on a walker to assist in his ambulation. He denies a history of lower extremity thrombophlebitis. He had recently been sleeping in a recliner at night, with his legs in a dependent position. He denied a history of smoking. Cardiac management is overseen locally by the [facility]. His appetite is said to be fair. He is not diabetic. The patient presented with superficial ulcerations and intact blisters on the distal aspect of both lower extremities. [facility] Medical History (Updated 06/20/24 @ 22:[address] Kee Garcia MD) Pressure ulcer of sacral region, stage 2 Venous stasis ulcer Wallenberg syndrome Nonrheumatic mitral (valve) insufficiency History of non-ST elevation myocardial infarction (NSTEMI) (05/27/21) technician terminal and repeater (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 of 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 Longstanding persistent atrial fibrillation Personal history of colon cancer, stage III Hyperlipidemia Venous stasis ulcer Venous stasis dermatitis Edema of both legs Localized swelling of both lower legs Frailty Old age Debility History of colon cancer, stage III Atrial flutter Hypoxia Acute on chronic systolic CHF (congestive heart failure), NYHA class 4 Ventricular tachycardia, incessant Essential hypertension Ischemic cardiomyopathy Atherosclerotic heart disease of [place] coronary artery without angina 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 (congestive heart failure) History of chronic CHF Pneumonia Ventricular tachycardia (paroxysmal) Nonrheumatic mitral (valve) insufficiency Anxiety Atherosclerosis of coronary artery bypass graft of [place] heart with angina pectoris LV (left ventricular) mural thrombus Wears glasses History of steroid therapy Arthritis Kidney stone Back pain Stroke/cerebrovascular accident History of hiatal hernia Non-smoker History of pain when walking Osteoarthritis Atrial fibrillation Personal history of colonic polyps Colon cancer History of stroke Home Medications ?Medication ?Instructions ?Recorded ?Last Taken ?Type clonazepam 0.5 mg tablet (Klonopin) 0.5 mg PO TID anxiety 08/11/13 12/07/22 History ascorbic acid (vitamin C) 500 mg 1,000 mg PO DAILY@0800 supplement 07/11/15 05/22/24 History tablet aspirin 81 mg tablet,delayed 81 mg PO QHS heart health 07/11/15 05/22/24 20:00 History release vit C 250 mg-vit E 90 mg-zinc 40 1 tab PO BID eye vitamin 02/24/21 05/22/24 History mg-copper 1 [id number] capsule (PreserVision AREDS-2) cholecalciferol (vitamin D3) 125 125 mcg PO DAILY supplement 03/05/23 05/22/24 History mcg (5,000 unit) tablet atorvastatin 10 mg tablet 10 mg PO QHS cholesterol #90 tabs 09/06/23 Unknown Rx tamsulosin 0.4 mg capsule 0.4 mg PO QHS Prostate 10/13/23 Unknown History warfarin 2 mg tablet 2 mg PO .COMPLEX blood thinner #90 02/17/24 Unknown Rx TABLETS metolazone 2.5 mg tablet 2.5 mg PO .COMPLEX #15 tabs 05/02/24 Unknown Rx empagliflozin 10 mg tablet 10 mg PO DAILY diabetes #30 tabs 05/09/24 Unknown Rx (Jardiance) isosorbide mononitrate 30 mg 30 mg PO DAILY heart health #90 05/09/24 Unknown Rx tablet,extended release 24 hr tabs warfarin 3 mg tablet 3 mg PO 4XW blood thinner #60 tabs 05/22/24 Unknown Rx albuterol sulfate 90 mcg/actuation 2 puff inhalation Q4H PRN PRN 05/23/24 Unknown History aerosol inhaler wheezing carvedilol 6.25 mg tablet 6.25 mg PO BIDCM 30 days #60 tabs 05/27/24 Unknown Rx torsemide 20 mg tablet 20 mg PO .COMPLEX #360 tabs 06/06/24 Unknown Rx guaifenesin 600 mg tablet, 600 mg PO BID 06/09/24 Unknown History extended release 12 hr (Mucinex) hydrochlorothiazide 25 mg tablet 25 mg PO QDAY 06/09/24 Unknown History potassium chloride 20 mEq 40 meq PO BID supplement 06/15/24 Unknown History tablet,extended release hydralazine 10 mg tablet 10 mg PO TID blood pressure 90 06/19/24 Unknown Rx days #270 tabs Allergy/AdvReac Type Severity Reaction Status Date / Time amiodarone AdvReac Severe Severe Verified 06/15/24 09:50 urinary retention requiring catheter KALEIGH Inhibitors AdvReac Other Verified 06/15/24 09:50 hydrochlorothiazide AdvReac Other Verified 06/15/24 09:50 levofloxacin (From Levaquin) AdvReac aching Verified 06/15/24 09:50 legs trouble walking spironolactone AdvReac Other Verified 06/15/24 09:50 Family History Father Hypertension Heart disease Surgical History History of coronary artery stent placement (05/27/21) History of implantable cardiac defibrillator (ICD) (02/10/17) H/O coronary artery bypass surgery (08/27/05) History of left heart catheterization History of ankle fusion History of right knee joint replacement History of colonoscopy (2016) History of left hip replacement History of cholecystectomy Hx of cataract surgery History of colon surgery Social History household members: spouse Smoking Status: Never smoker alcohol intake: never substance use type: does not use caffeine: Yes Type: coffee Number of servings: 1 Vital Signs Vital Signs Vital Signs: 06/20/24 15:28 Temperature 97.1 F L Temperature Source Temporal Pulse Rate 62 Respiratory Rate 16 Blood Pressure 84/51 L Blood Pressure Mean 62 Blood Pressure Source Monitor Blood Pressure Position Sitting Blood Pressure Location Right Arm Oxygen Delivery Method Room Air Weight Weight: 160 lb Body Mass Index (BMI) 29.2 Physical Exam Const alert, oriented x3, no apparent distress, average body habitus and no limitations Constitutional Narrative: The patient appears weak and frail. He is alert and appropriate. The patient's BMI is 29.3. General Appearance: cooperative, comfortable and well developed Orientation / Consciousness: awake, oriented to person, oriented to place and oriented to time Exam Limitations: no limitations HEENT normocephalic and head/scalp atraumatic Head and Scalp: normal to inspection, normocephalic and atraumatic Face and Sinus: normal facial exam Nose: external nose normal External Ear: external ears normal Eyes PERRL and EOMs intact bilaterally General Eye: normal appearance of both eyes Neck full ROM Resp normal respiratory effort, normal air movement, no retractions and no use of accessory muscles Resp Narrative: Respirations appear normal and unlabored. A nasal cannula is noted to be in place. Effort and Inspection: able to speak in complete sentences and symmetric chest movement Extremity no calf tenderness General Extremity: Negative for clubbing or cyanosis Skin Wound Narrative: Swelling and edema persist in the patient's lower extremities bilaterally, though somewhat improved from the week prior. Several additional ulcerations are noted in both lower extremities. These appear to be sites where blisters had formed, and have subsequently unroofed. Each of the ulcerations is partial-thickness, and clean, pink, and healthy in appearance. They appear to be confined to the dermis, without extension into the subcutaneous tissues. The dimensions of each are documented elsewhere. Little or no bioburden appears to be present. There is a generally diffuse venous stasis dermatitis in the gaiter areas of both lower extremities. There is no sign of infection or cellulitis. There is also noted to be some early signs of pressure phenomenon in the patient's sacral area, though the skin is largely intact, but for a very small, superficial ulceration, the dimensions of which are documented elsewhere. This is a new finding. Neuro oriented x3, CN's II-XII intact bilaterally, moves all extremities and no focal motor deficits Sensorium / Orientation: awake, alert, oriented to person, oriented to place and oriented to time Psych Appearance: grossly normal and appropriate Attitude: calm Activity / Motor Behavior: appropriate eye contact Speech: normal speech Mood & Affect: euthymic mood Thought Process: normal thought process Thought Content: normal thought content Attention / Concentration: attention grossly intact Debridement Note Debridement Note No debridement was completed: No debridement was completed today Post-Debridement Measurements and Additional Note: Post-Debridement Measurements/Treatment WC - Nurse 1 - General Ulcer Assessment Start: 06/13/24 14:52 Freq: Status: Active Protocol: WC.LOWEXT Activity Type Activity Date Activity User E-sign Co-sign Detail Recorded Client Recorded Date Recorded By Document 06/13/24 14:52 RB [id number] 06/13/24 15:02 RB Document 06/20/24 15:28 KW [id number] 06/20/24 15:45 KW 06/13/24 06/20/24 14:52 15:28 WC - Today's Visit Information Type of service Initial Visit Follow-up Visit (Physician/AUTOMOBILE BODY REPAIRER ) Arrival Mode Wheelchair Wheelchair Transfer Assistance Manual Accompanied by family Patient Identification Verified (Name & No Yes ) Patient Requires Transmission-Based Yes Precautions Safety Precautions Fall Prevention Height and Weight Height 5 ft 2 in Weight 160 lb Weight in Pounds 160.0 lbs Body Mass Index (BMI) 29.2 29.2 BMI Classification Overweight Overweight BSA - Harvey 1.74 Vital Signs Temperature (97.8 F-99.1 F) 97.1 F L 97.1 F L Temperature Source Temporal Temporal Pulse Rate (60-100) 67 62 Pulse Location Monitor Monitor Respiratory Rate (12-18) 18 16 Respiratory rate source Observation Observation Oxygen Delivery Method Room Air Blood Pressure (90/60-120/80) 90/56 L 84/51 L Blood Pressure Mean 67 62 Source Monitor Monitor Position Semi-Fowlers Sitting Blood Pressure Location Left Arm Right Arm History Since Last Visit- (Skip if this is Patient's initial visit) Have you changed medications since your No No last visit? Any new allergies or adverse reactions No No Had a fall/change in ADL's that may No No increase risk of falls Signs or symptoms of abuse and/or No No neglect since last visit Have you been in the hospital since your No No last visit? Has dressing in place as prescribed Yes Yes Has compression in place as prescribed Yes Yes Has offloadiing in place as prescribed No N/A Experienced any changes in pain level or No No management Left Footwear Regular Shoe Right Footwear Regular Shoe Pain Scale: 0-10 Numeric Is Patient Pain Free? No Yes LLE -Description Aching -Intensity 7 -Duration (hours) Acute -Pain Behavior Irritability -Pain Aggravating Factors ADL's -Alleviating Factors/Interventions None Lower Extremity Assessment/ Foot Assessment/ Toe Nail Assessment Right -Posterior Tibial Palpable Yes -Dorsalis Pedis Palpable Yes -Extremity Color Pale -Hair Growth on Legs No -Hair Growth on Toes No -Temperature of Extremity Cool -Capillary Refill Greater than 3 Seconds -Dependent Rubor No -Blanched when Elevated No -Lipodermatosclerosis No -Other Deformity No -Prior Foot Ulcer No -Charcot Joint No -Prior Amputation No -Thick Yes -Discolored Yes -Deformed Yes -Improper Length & Hygeine No Left -Posterior Tibial Palpable Yes -Dorsalis Pedis Palpable Yes -Extremity Color Normal -Hair Growth on Legs No -Hair Growth on Toes No -Temperature of Extremity Cool -Capillary Refill Greater than 3 Seconds -Dependent Rubor No -Blanched when Elevated No -Lipodermatosclerosis No -Other Deformity No -Prior Foot Ulcer No -Charcot Joint No -Prior Amputation No -Thick Yes -Discolored Yes -Deformed Yes -Improper Length & Hygeine No Neuropathy Assessment Feet - Top Side and Bottom <Entered> (a) Communication Assessment Preferred language Malagasy Test Automation Architect Required No Able to Read Yes Able to Write Yes Communication Tools None Caregiver Communication Skills No Impairment Impairment Right Hearing Abillity Normal Left Hearing Abillity Normal Visual Assistive Devices Glasses Teaching Assessment Preferences Verbal,Written, Demonstration Barriers to Learning None Readiness To Learn Good Willingness to Engage in Self Management Med Activies Readiness to Engage in Self Management Med Activities Anxiety Level Calm Cooperation Cooperative Perception Coherent Interest in Health Problem Asks Questions Education Importance Acknowledges Need Does Patient Smoke tobacco or other No substances Smoking Status Never smoker Is Patient Diabetic No Functional Assessment Recent Decline in Ability to Perform Ambulation, Bathing,Lower Body Dressing, Transferring Assistive Device With Patient Yes Culture/Pentecostal/Superintendent Pressure Cultural/Pentecostal Needs that may affect No Treatment Plan Would you allow our hospital aboriginal education teacher to No meet you for the purpose of spiritual/ emotional support? Superintendent Pressure to contact place of gnosticist No Teaching: Wound Center *Welcome to the Wound Center -Person Taught Patient,Family -Teaching Method Demonstration -Response to teaching Verbalize Understanding (a) 1 - + throughout WC - Nurse 1 - General Ulcer Measurement Start: 06/13/24 14:52 Freq: Status: Active Protocol: Activity Type Activity Date Activity User E-sign Co-sign Detail Recorded Client Recorded Date Recorded By Document 06/13/24 14:52 RB [id number] 06/13/24 15:02 RB Document 06/20/24 15:28 [id number] 06/20/24 15:45 KW 06/13/24 06/20/24 14:52 15:28 Wound Center Nurse 1 1. RLE - lateal -Combined with other wound No -Current Size (cm) - Length 1.7 9 -Current Size (cm) - Width 2.4 9.5 -Current Size (cm) - Depth 0.1 0.1 -Total Square Cm 4.08 85.5 -Date of Last Picture (Recall this 06/20/24 field) -Photo Taken Yes -Tunneling No -Undermining/Tunneling No -Circular Undermining No -Exudate Amt Large Small -Exudate Type Serosanguineous Serosanguineous -Wound Margin Distinct, Distinct, Outline Outline Attached Attached -Granulation Amt Large (67-100%) Large (67-100%) -Granulation Quality [place] Red -Slough/Fibrin Yes -Necrosis Amt Small (1-33%) -Necrotic Tissue Type Adherent Slough -Structure Exposed N/A -Texture (Keren-wound Skin Appearance) Assessed Assessed -Moisture (Keren-wound Skin Appearance) Assessed, Assessed Weeping -Color (Keren-wound Skin Appearance) Assessed Assessed -Temperature (Keren-wound Skin No Abnormality No Abnormality Appearance) (Pt Warm) (Pt Warm) -Tenderness on Palpation (Keren-wound No No Skin Appearance) -Ulcer Cleansing Wound Cleanser Soap and Water -Foul Odor after Cleansing No No -Anesthetic Used 4% Lidocaine 4% Lidocaine Solution Solution 3. LLE circumferential- cluster -Current Size (cm) - Length 15 -Current Size (cm) - Width 24 -Current Size (cm) - Depth 0.1 -Total Square Cm 360 -Date of Last Picture (Recall this 06/20/24 field) -Exudate Amt Small -Exudate Type Serosanguineous -Wound Margin Distinct, Outline Attached -Texture (Keren-wound Skin Appearance) Assessed -Moisture (Keren-wound Skin Appearance) Assessed -Color (Keren-wound Skin Appearance) Assessed -Temperature (Keren-wound Skin No Abnormality Appearance) (Pt Warm) -Tenderness on Palpation (Keren-wound No Skin Appearance) -Ulcer Cleansing Soap and Water -Foul Odor after Cleansing No -Anesthetic Used 4% Lidocaine Solution 2. RLE - cluster -Combined with other wound No -Current Size (cm) - Length 8.1 6 -Current Size (cm) - Width 3.9 3 -Current Size (cm) - Depth 0.1 0.2 -Total Square Cm 31.59 18 -Date of Last Picture (Recall this 06/20/24 field) -Photo Taken Yes -Epithelialization Large 67-100% -Tunneling No -Undermining/Tunneling No -Circular Undermining No -Exudate Amt Large Small -Exudate Type Serosanguineous Serosanguineous -Wound Margin Distinct, Distinct, Outline Outline Attached Attached -Granulation Amt Medium (34-66%) Large (67-100%) -Granulation Quality [place] Red -Slough/Fibrin Yes -Necrosis Amt Medium (34-66%) -Necrotic Tissue Type Adherent Slough -Structure Exposed N/A -Texture (Keren-wound Skin Appearance) Assessed Assessed -Moisture (Keren-wound Skin Appearance) Assessed, Assessed Weeping -Color (Keren-wound Skin Appearance) Assessed Assessed -Temperature (Keren-wound Skin No Abnormality No Abnormality Appearance) (Pt Warm) (Pt Warm) -Tenderness on Palpation (Keren-wound No No Skin Appearance) -Ulcer Cleansing Wound Cleanser Rinsed/ Irrigated with Saline -Foul Odor after Cleansing No No -Anesthetic Used 4% Lidocaine 4% Lidocaine Solution Solution Lower Limb Edema Present Yes Right Calf (cm) 41 Right Ankle (cm) 22.8 Left Calf (cm) 34.5 Left Ankle (cm) 23.7 WC - Nurse 2 - General Ulcer CM Notes Start: 06/13/24 14:52 Freq: Status: Active Protocol: Activity Type Activity Date Activity User E-sign Co-sign Detail Recorded Client Recorded Date Recorded By Document 06/13/24 15:26 DS [id number] 06/13/24 15:42 DS Document 06/20/24 16:23 DS [id number] 06/20/24 16:26 DS 06/13/24 06/20/24 15:26 16:23 Wound Center Nurse 2 1. RLE - lateal -Time 15:26 -Correct Patient Yes -Procedure Performed No -Post Debridement (cm) - Length 1.8 -Post Debridement (cm) - Width 2.3 -Post Debridement (cm) - Depth 0.1 -Total Square (Post) (cm) 4.14 -Area of Debridement (cm) - Length 1.8 -Area of Debridement (cm) - Width 2.3 -Total Square (Area) (cm) 4.14 -Tunneling No -Undermining/Tunneling No -Circular Undermining No -Wound/Ulcer Outcome Not Healed coccyx -Time 16:00 -Correct Patient Yes -Procedure Performed No -Post Debridement (cm) - Length 0.5 -Post Debridement (cm) - Width 0.6 -Post Debridement (cm) - Depth 0.1 -Total Square (Post) (cm) 0.30 -Area of Debridement (cm) - Length 0.5 -Area of Debridement (cm) - Width 0.6 -Total Square (Area) (cm) 0.30 -Tunneling No -Undermining/Tunneling No -Circular Undermining No -Wound/Ulcer Outcome Not Healed 3. LLE circumferential- cluster -Time 15:26 16:00 -Correct Patient Yes Yes -Procedure Performed No No -Post Debridement (cm) - Length 5.0 13.5 -Post Debridement (cm) - Width 4.0 14.8 -Post Debridement (cm) - Depth 0.1 0.1 -Total Square (Post) (cm) 20.00 199.80 -Area of Debridement (cm) - Length 5.0 13.5 -Area of Debridement (cm) - Width 4.0 14.8 -Total Square (Area) (cm) 20.00 199.80 -Tunneling No No -Undermining/Tunneling No No -Circular Undermining No No -Wound/Ulcer Outcome Not Healed Not Healed 2. RLE - cluster -Time 15:27 16:00 -Correct Patient Yes Yes -Procedure Performed No No -Post Debridement (cm) - Length 1.8 6.0 -Post Debridement (cm) - Width 2.0 13.5 -Post Debridement (cm) - Depth 0.1 0.1 -Total Square (Post) (cm) 3.60 81.00 -Area of Debridement (cm) - Length 1.8 6.0 -Area of Debridement (cm) - Width 2.0 13.5 -Total Square (Area) (cm) 3.60 81.00 -Tunneling No No -Undermining/Tunneling No No -Circular Undermining No No -Wound/Ulcer Outcome Not Healed Not Healed Pain Scale: 0-10 Numeric Is Patient Pain Free? Yes Yes WC - Nurse 3 - General Ulcer D/C NN Start: 06/13/24 14:52 Freq: Status: Active Protocol: Activity Type Activity Date Activity User E-sign Co-sign Detail Recorded Client Recorded Date Recorded By Document 06/13/24 15:57 KW [id number] 06/13/24 15:58 KW Document 06/20/24 16:32 KW [id number] 06/20/24 16:32 KW 06/13/24 06/20/24 15:57 16:32 Wound Care Center Nurse 3 1. RLE - lateal -Primary Dressing Applied Optilok 8x12 -Optilok 8x12 1 coccyx -Primary Dressing Applied Mepilex Border -Mepilex Border 1 3. LLE circumferential- cluster -Primary Dressing Applied Optilok 8x12 Optilok 8x12 -Primary Dressing Covered/Secured with Dry Gauze & Roll Gauze -Optilok 8x12 1 1 2. RLE - cluster -Primary Dressing Applied Optilok 8x12 Optilok 8x12 -Optilok 8x12 1 1 BLE -Multi-Layered Wrap Application Unna Boot - Unna Boot - Bilateral ($) Bilateral ($) Pain Scale: 0-10 Numeric Is Patient Pain Free? Yes Yes WC - Visit Discharge Discharge Condition Stable Ambulatory Status Wheelchair Transportation Private Auto Medication Reconcilliation completed & No provided to patient/care provider Clinical Summary of Care Provided Yes Charges/Coding Visit Charges Office Visits / Consults: 44190 OV L3 Est 20min Assessment/Plan Assessment/Plan (1) Pressure ulcer of sacral region, stage 2: CODE(S): L89.152 - Pressure ulcer of sacral region, stage 2 (2) Venous stasis ulcer: CODE(S): I83.009 - Varicose veins of unspecified lower extremity with ulcer of unspecified site; L97.909 - Non-pressure chronic ulcer of unspecified part of unspecified lower leg with unspecified severity QUALIFIERS: Venous stasis ulcer site: calf Varicose vein presence: without varicose veins Laterality: right Non-pressure ulcer stage: limited to breakdown of skin Qualified Code(s): I87.2 - Venous insufficiency (chronic) (peripheral); L97.211 - Non-pressure chronic ulcer of right calf limited to breakdown of skin (3) Venous stasis ulcer: CODE(S): I83.009 - Varicose veins of unspecified lower extremity with ulcer of unspecified site; L97.909 - Non-pressure chronic ulcer of unspecified part of unspecified lower leg with unspecified severity QUALIFIERS: Venous stasis ulcer site: calf Varicose vein presence: without varicose veins Laterality: left Non-pressure ulcer stage: limited to breakdown of skin Qualified Code(s): I87.2 - Venous insufficiency (chronic) (peripheral); L97.221 - Non-pressure chronic ulcer of left calf limited to breakdown of skin (4) Venous stasis dermatitis: CODE(S): I87.2 - Venous insufficiency (chronic) (peripheral) (5) Edema of both legs: CODE(S): R60.0 - Localized edema (6) Localized swelling of both lower legs: CODE(S): R22.43 - Localized swelling, mass and lump, lower limb, bilateral (7) Frailty: CODE(S): R54 - Age-related physical debility (8) Debility: CODE(S): R53.81 - Other malaise (9) Atrial flutter: CODE(S): I48.92 - Unspecified atrial flutter (10) Hypoxia: CODE(S): R09.02 - Hypoxemia (11) Bronchiectasis: CODE(S): J47.9 - Bronchiectasis, uncomplicated QUALIFIERS: Bronchiectasis type: uncomplicated Qualified Code(s): J47.9 - Bronchiectasis, uncomplicated (12) Acute on chronic systolic CHF (congestive heart failure), NYHA class 4: CODE(S): I50.23 - Acute on chronic systolic (congestive) heart failure (13) Ventricular tachycardia, incessant: CODE(S): I47.29 - Other ventricular tachycardia (14) H/O coronary artery bypass surgery: CODE(S): Z95.1 - Presence of aortocoronary bypass graft (15) History of implantable cardiac defibrillator (ICD): CODE(S): Z95.810 - Presence of automatic (implantable) cardiac defibrillator (16) Ischemic cardiomyopathy: CODE(S): I25.5 - Ischemic cardiomyopathy (17) Essential hypertension: CODE(S): I10 - Essential (primary) hypertension (18) Chronic combined systolic and diastolic CHF (congestive heart failure): CODE(S): I50.42 - Chronic combined systolic (congestive) and diastolic (congestive) heart failure (19) Hyperlipidemia: CODE(S): E78.5 - Hyperlipidemia, unspecified QUALIFIERS: Hyperlipidemia type: unspecified Qualified Code(s): E78.5 - Hyperlipidemia, unspecified (20) Atherosclerotic heart disease [place] coronary artery w/angina pectoris: CODE(S): I25.119 - Atherosclerotic heart disease of [place] coronary artery with unspecified angina pectoris (21) halfway (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 of 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: CODE(S): Z79.01 - technician terminal and repeater (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 of 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 (22) Nonrheumatic mitral (valve) insufficiency: CODE(S): I34.0 - Nonrheumatic mitral (valve) insufficiency (23) Wallenberg syndrome: CODE(S): G46.3 - Brain stem stroke syndrome (24) History of non-ST elevation myocardial infarction (NSTEMI): CODE(S): I25.2 - Old myocardial infarction (25) Longstanding persistent atrial fibrillation: CODE(S): I48.11 - Longstanding persistent atrial fibrillation (26) Stroke/cerebrovascular accident: CODE(S): I63.9 - Cerebral infarction, unspecified (27) History of hiatal hernia: CODE(S): Z87.19 - Personal history of other diseases of the digestive system (28) Osteoarthritis: CODE(S): M19.90 - Unspecified osteoarthritis, unspecified site (29) Personal history of colon cancer, stage III: CODE(S): Z85.038 - Personal history of other malignant neoplasm of large intestine (30) History of left heart catheterization: CODE(S): Z98.890 - Other specified postprocedural states (31) History of coronary artery stent placement: CODE(S): Z95.5 - Presence of coronary angioplasty implant and graft (32) History of ankle fusion: CODE(S): Z98.1 - Arthrodesis status (33) History of right knee joint replacement: CODE(S): Z96.651 - Presence of right artificial knee joint (34) History of colonoscopy: CODE(S): Z98.890 - Other specified postprocedural states (35) History of left hip replacement: CODE(S): Z96.642 - Presence of left artificial hip joint (36) History of cholecystectomy: CODE(S): Z90.49 - Acquired absence of other specified parts of digestive tract (37) Hx of cataract surgery: CODE(S): Z98.49 - Cataract extraction status, unspecified eye (38) History of colon surgery: CODE(S): Z98.890 - Other specified postprocedural states (39) History of colon cancer, stage III: CODE(S): Z85.038 - Personal history of other malignant neoplasm of large intestine (40) Old age: CODE(S): R54 - Age-related physical debility PLAN: Plan This is an 84-year-old male who presented with swelling and edema in his lower extremities bilaterally, associated with blisters, dermatitic changes, and ulcerations in each leg. He suffers from debility and frailty, and his ambulation is limited. He sits throughout the day, and had recently been sleeping in a recliner with his legs in a dependent position. The patient's and adult son have accompanied the patient to his visit today. A lengthy discussion has been undertaken with regard to the recommended measures for management. The patient has been encouraged to sleep on a flat mattress at night. He has been encouraged to elevate his lower extremities as much as possible, during daytime hours. As described to the patient and his family, elevation is to be to heart level, or higher. Prolonged idle sitting has been discouraged. Because of the newly noted early breakdown and pressure phenomenon noted in the patient's sacral area, the patient and his family have been advised to refrain from prolonged idle sitting. He has been encouraged to reposition himself frequently, with the assistance of family members. We will attempt to obtain a Roho cushion for the patient to assist in offloading of pressure to the ischial and sacral areas. The patient's family indicates that he has an egg-crate overlay for his mattress. Compression is to be an important component of the patient's management, and we are to continue the use of the Unna boots bilaterally, which will provide the necessary compression, and the zinc oxide is anticipated to be therapeutic for the patient's superficial ulcerations and dermatitis. Because of the weeping from the patient's dermatitis and ulcerations, it may be necessary to change the Unna boot compression more than twice a week. Unfortunately, the Unna boots applied by the patient's home health nursing staff appear to have been an adequate as applied late last week. Therefore, coordination will be undertaken between the Wound Center staff and home health nursing staff to assure that the Unna boots are applied in the manner desired. It is important to note that there has been consideration of the patient's history of heart disease and congestive heart failure, with acknowledgment that implementing additional compression to the patient's lower extremities could exacerbate his heart failure symptoms. This has been discussed in detail with the patient and his family at the bedside. It has been discussed that the patient and the family should be aware of signs such as shortness of breath, difficulty breathing, a decrease in oxygen saturation, increased breathing rate, stridor, etc., and that they should seek medical attention without delay should the symptoms occur. It is noted that the patient was seen and evaluated by Dr. Dutch Castro, guide dog trainer, since the patient's last [facility]ound Center visit. There appears to be no adverse cardiac effects of the compression wraps thus far. Additionally, it is noted that discussion of hospice care was undertaken with the patient and his family during his recent visit with Dr. Castro. The patient's questions, and those of his family, have been answered. The patient is to return in 1 week for reevaluation. Unna boots will be changed twice weekly. Total time: 25 minutes
--- NOTE | 2024-06-21 12:08 | WC ---
PHOTO 06/20/24 RIGHT [facility]
--- NOTE | 2024-06-21 12:09 | WC ---
PHOTO 06/20/24 RIGHT [facility]
--- NOTE | 2024-06-21 12:11 | WC ---
PHOTO 06/20/24 LEFT LE
== END 2024-06-26 14:09 | disposition home or self-care (01) ==
LOC: WC 15:00
PROVIDERS: PCP Student in an Organized Health Care Education/Training Program; Referring Provider Nurse Practitioner Family; Visit Provider Surgery
DX: I87.2 Venous insufficiency (chronic) (peripheral) (principal); L89.152 Pressure ulcer of sacral region, stage 2; L97.211 Non-pressure chronic ulcer of right calf limited to breakdown of skin; L97.221 Non-pressure chronic ulcer of left calf limited to breakdown of skin; I50.42 Chronic combined systolic (congestive) and diastolic (congestive) heart failure; I11.0 Hypertensive heart disease with heart failure; J47.9 Bronchiectasis, uncomplicated; I48.11 Longstanding persistent atrial fibrillation; I47.20 Ventricular tachycardia, unspecified; I48.92 Unspecified atrial flutter; R09.02 Hypoxemia; R60.0 Localized edema; M19.90 Unspecified osteoarthritis, unspecified site; E78.5 Hyperlipidemia, unspecified; I34.0 Nonrheumatic mitral (valve) insufficiency; I25.5 Ischemic cardiomyopathy; Z99.81 Dependence on supplemental oxygen; Z98.1 Arthrodesis status; I25.119 Atherosclerotic heart disease of native coronary artery with unspecified angina pectoris; M79.89 Other specified soft tissue disorders; R53.81 Other malaise; I25.2 Old myocardial infarction; Z79.01 Long term (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 of 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; Z79.82 Long term (current) use of aspirin; Z79.899 Other long term (current) drug therapy; Z95.5 Presence of coronary angioplasty implant and graft; Z95.810 Presence of automatic (implantable) cardiac defibrillator; Z86.73 Personal history of transient ischemic attack (TIA), and cerebral infarction without residual deficits
CPT/HCPCS: 29580; 99213; 99214; G0463

== ENCOUNTER 2024-06-21 10:59 | Inpatient (IN) | payer MEDICARE, SELFPAY ==
[2024-06-21] VITALS (19 sets, daily range): BP systolic 84–100; BP diastolic 48–76; PULSE 61–87; RESP 12–22; TEMP 36.3–37.2; O2SAT 93–99; BMI 33.3; BMI 34.8
[2024-06-21 12:20] LABS: Absolute Lymphocyte Count 0.48 X10^3/uL (0.83-4.51); Absolute Neutrophil Count 6.2 X10^3/uL (2.0-7.7); Basophil# 0.01 X10^3/uL; Basophil% 0.1 % (0-1); Eosinophil# 0.44 X10^3/uL; Eosinophils% 5.7 % (0-5); Hematocrit 35.9 % (40-54); Hemoglobin 11.1 g/dL (13.0-16.5); Lymphocyte # 0.48 X10^3/ul (0.83-4.51); Lymphocyte % 6.2 % (19-41); Mean Corp Hgb Conc 30.9 g/dL (32-36); Mean Corpuscular Hgb 30.4 pg (27.0-32.0); Mean Corpuscular Volume 98.4 fL (80-94); Mean Platelet Vol. 10.8 fl (6.2-12.0); Monocyte# 0.61 X10^3/uL; Monocyte% 7.9 % (0-10); NRBC Flagged by Analyzer 0 % (0-5); Neutrophil # 6.19 X10^3/uL (2.7-7.7); POSITIVE DIFFERENTIAL YES; POSITIVE MORPHOLOGY YES; Platelet Count 142 K/mm3 (150-450); RBC Distribution Width CV 18.9 % (11.6-14.6); RBC Distribution Width SD 67.8 fl (35.1-43.9); Red Blood Count 3.65 M/mm3 (4.6-6.2); White Blood Count 7.7 K/mm3 (4.4-11.0)
[2024-06-21 12:22] LABS: Anion Gap 4 (5-15); BUN 39 mg/dL (7-18); BUN/Creat Ratio 29.1 RATIO (10-20); Calcium,Total 8.9 mg/dL (8.5-10.1); Chloride 94 mmol/L (98-107); Creatinine, Serum 1.34 mg/dL (0.70-1.30); EST Glomerular Filtration Rate 54 mL/min (>60); Est Glom Filt Rate - Afr Amer 65 mL/min (>60); Estimated Creatinine Clearance 38.92 ml/min; Glucose 104 mg/dL (74-106); Potassium 4.3 mmol/L (3.5-5.1); Sodium Level 132 mmol/L (136-145)
[2024-06-21 12:31] LABS: International Normalized Ratio 1.9
--- NOTE | 2024-06-21 12:42 | EKG12_ITS ---
Test Reason : HYPERKAL Blood Pressure : */* mmHG Vent. Rate : 80 BPM Atrial Rate : 80 BPM P-R Int : 156 ms QRS Dur : 170 ms QT Int : 396 ms P-R-T Axes : 65 120 4 degrees QTcB Int : 456 ms Sinus rhythm with marked sinus arrhythmia with occasional Premature ventricular complexes Possible Left atrial enlargement Right bundle branch block Septal infarct , age undetermined Abnormal ECG When compared with ECG of 24-Jun-2024 11:16, MANUAL COMPARISON REQUIRED DATA IS UNCONFIRMED Confirmed by MIRTHA RAO, RAE ([id number]), dictionary editor LUCERO ESTRADA ([id number]) on 06/26/2024 12:47:20 PM Referred By: MEGAN Confirmed By: RAE SHANNON MD
[2024-06-21 12:45] LABS: Differential Comment SCANNED; Differential Indicated SCAN CRITERIA MET
--- NOTE | 2024-06-21 12:50 | RAD_ITS ---
STUDY: X-RAY CHEST REASON FOR EXAM: Male, 84 years old. CHF TECHNIQUE: Single AP portable view of the chest. COMPARISON: Comparison is made with prior study May 23, 2024. FINDINGS: EKG electrodes are seen. Right pleural effusion with right basilar infiltration and/or atelectasis. There is blunting of the left costophrenic angle with left basilar atelectasis. Vascular congestion. Sternal cerclage wires and vascular clips are present from a prior sternotomy and coronary artery bypass graft procedure (CABG). Cardiomegaly. A left-sided dual-chamber pacemaker is seen. Normal mediastinum and yuki. Normal visualized pulmonary arteries. Normal visualized aortic arch and descending thoracic aorta. There are diffuse degenerative changes of the visualized thoracic spine. There is degenerative osteoarthritis of the bilateral shoulders. There is no demonstrated abnormality of the visualized soft tissue structures of the upper abdomen. RAD/Chest 1 View (Portable) IMPRESSION: Bilateral pleural effusions with bibasilar atelectasis and/or infiltration worse on the right side superimposed on mild degree of CHF. Prior CABG. Electronically Signed: Carlos Ron MD at 13:26 EST ,
--- NOTE | 2024-06-21 12:52 | EX.ED.DYSGE1 ---
HPI History of Present Illness Chief Complaint: General Illness Narrative Narrative: Chief complaint and HPI: Bilateral peripheral edema. 84-year-old male with history of CAD, atrial fibrillation on warfarin, CHF, chronic venous stasis ulcers, chronic hypoxia on nasal cannula, HTN presents for evaluation of worsening bilateral peripheral edema and lower extremity pain. Patient states for the past 3 days he has get having increased bilateral lower extremity edema. He states that he is swollen in the abdomen as well. He has not called his taste tester. He states that he has gained about 10 pounds in the last 3 months but no significant weight gain over the past 3 days. He follows with wound care for his chronic wounds. They noticed increased swelling as well. Patient endorses baseline shortness of breath. He denies any fever, chills, URI symptoms, chest pain, abdominal pain, nausea, vomiting. Patient states that he has had decreased urination. He denies any dysuria or hematuria. Has been eating and drinking but states that he is on a water restriction at 1.5 L. On chart review, patient was recently discharged from the hospital on 05/27/2024 for V-fib/CAD status post CABG and ICD with defibrillator placement. He was diuresed with Lasix drip at that time. Review of systems: See HPI Medications: As listed on the chart Allergies: As listed on the chart PFSH: Per chart Vital signs: As listed on the chart. Reviewed. Physical exam: Gen: A&O x3 Head: Normocephalic, atraumatic Eyes: No sclera icterus, conjunctiva clear, PERRL, EOMI ENT: Dry mucous membranes Neck: Trachea midline CV: Regular rate, irregular rhythm , no murmurs, +2-3 pitting peripheral edema from the feet all the way up to the mid thighs Resp: Lungs CTA BL, no w/r/c GI: Abd soft, non-distended, non-tender, no r/r/g, mild anasarca in the abdomen Musc: Moves all extremities but baseline weakness on the left due to CVA, no deformity Skin: Warm, chronic venous stasis ulcers-not infected Neuro: Alert, oriented, grossly intact, sensation intact Psych: Cooperative, appropriate mood and affect [facility] Medical History Pressure ulcer of sacral region, stage 2 Venous stasis ulcer Wallenberg syndrome Nonrheumatic mitral (valve) insufficiency History of non-ST elevation myocardial infarction (NSTEMI) (05/27/21) 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 Longstanding persistent atrial fibrillation Personal history of colon cancer, stage III Hyperlipidemia Venous stasis ulcer Venous stasis dermatitis Edema of both legs Localized swelling of both lower legs Frailty Old age Debility History of colon cancer, stage III Atrial flutter Hypoxia Acute on chronic systolic CHF (congestive heart failure), NYHA class 4 Ventricular tachycardia, incessant Essential hypertension Ischemic cardiomyopathy Atherosclerotic heart disease of [place] coronary artery without angina 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 (congestive heart failure) History of chronic CHF Pneumonia Ventricular tachycardia (paroxysmal) Nonrheumatic mitral (valve) insufficiency Anxiety Atherosclerosis of coronary artery bypass graft of [place] heart with angina pectoris LV (left ventricular) mural thrombus Wears glasses History of steroid therapy Arthritis Kidney stone Back pain Stroke/cerebrovascular accident History of hiatal hernia Non-smoker History of pain when walking Osteoarthritis Atrial fibrillation Personal history of colonic polyps Colon cancer History of stroke Home Medications ?Medication ?Instructions ?Recorded ?Last Taken ?Type clonazepam 0.5 mg tablet (Klonopin) 0.5 mg PO TID anxiety 08/11/13 12/07/22 History ascorbic acid (vitamin C) 500 mg 1,000 mg PO DAILY@0800 supplement 07/11/15 05/22/24 History tablet aspirin 81 mg tablet,delayed 81 mg PO QHS heart [facility] 07/11/15 05/22/24 20:00 History release vit C 250 mg-vit E 90 mg-zinc 40 1 tab PO BID eye vitamin 02/24/21 05/22/24 History mg-copper 1 [id number] capsule (PreserVision AREDS-2) cholecalciferol (vitamin D3) 125 125 mcg PO DAILY supplement 03/05/23 05/22/24 History mcg (5,000 unit) tablet atorvastatin 10 mg tablet 10 mg PO QHS cholesterol #90 tabs 09/06/23 Unknown Rx tamsulosin 0.4 mg capsule 0.4 mg PO QHS Prostate 10/13/23 Unknown History warfarin 2 mg tablet 2 mg PO .COMPLEX blood thinner #90 02/17/24 Unknown Rx TABLETS metolazone 2.5 mg tablet 2.5 mg PO .COMPLEX #15 tabs 05/02/24 Unknown Rx empagliflozin 10 mg tablet 10 mg PO DAILY diabetes #30 tabs 05/09/24 Unknown Rx (Jardiance) isosorbide mononitrate 30 mg 30 mg PO DAILY heart health #90 05/09/24 Unknown Rx tablet,extended release 24 hr tabs warfarin 3 mg tablet 3 mg PO 4XW blood thinner #60 tabs 05/22/24 Unknown Rx albuterol sulfate 90 mcg/actuation 2 puff inhalation Q4H PRN PRN 05/23/24 Unknown History aerosol inhaler wheezing carvedilol 6.25 mg tablet 6.25 mg PO BIDCM 30 days #60 tabs 05/27/24 Unknown Rx torsemide 20 mg tablet 20 mg PO .COMPLEX #360 tabs 06/06/24 Unknown Rx guaifenesin 600 mg tablet, 600 mg PO BID 06/09/24 Unknown History extended release 12 hr (Mucinex) hydrochlorothiazide 25 mg tablet 25 mg PO QDAY 06/09/24 Unknown History potassium chloride 20 mEq 40 meq PO BID supplement 06/15/24 Unknown History tablet,extended release hydralazine 10 mg tablet 10 mg PO TID blood pressure 90 06/19/24 Unknown Rx days #270 tabs Allergy/AdvReac Type Severity Reaction Status Date / Time amiodarone AdvReac Severe Severe Verified 06/21/24 11:01 urinary retention requiring catheter KALEIGH Inhibitors AdvReac Other Verified 06/21/24 11:01 hydrochlorothiazide AdvReac Other Verified 06/21/24 11:01 levofloxacin (From Levaquin) AdvReac aching Verified 06/21/24 11:01 legs trouble walking spironolactone AdvReac Other Verified 06/21/24 11:01 Family History Father Hypertension Heart disease Surgical History History of coronary artery stent placement (05/27/21) History of implantable cardiac defibrillator (ICD) (02/10/17) H/O coronary artery bypass surgery (08/27/05) History of left heart catheterization History of ankle fusion History of right knee joint replacement History of colonoscopy (2016) History of left hip replacement History of cholecystectomy Hx of cataract surgery History of colon surgery Social History household members: spouse Smoking Status: Never smoker alcohol intake: never substance use type: does not use caffeine: Yes Type: coffee Number of servings: 1 EXAM Physical Exam Const Vital Signs: 06/21/24 11:01 06/21/24 11:07 06/21/24 11:07 Temperature 98.9 F 97.9 F Temperature Source Oral Oral Pulse Rate 87 79 Respiratory Rate 18 18 Respiratory Effort Normal Respiratory Pattern Normal Blood Pressure 92/62 96/62 Blood Pressure Mean 72 73 Pulse Ox 99 97 Oxygen Delivery Method Nasal Cannula Room Air Oxygen Flow Rate (L/min) 3 06/21/24 12:07 06/21/24 13:00 06/21/24 14:00 Temperature 98.9 F 98.9 F 98.7 F Temperature Source Oral Temporal Oral Pulse Rate 78 85 61 Respiratory Rate 16 18 18 Respiratory Effort Respiratory Pattern Blood Pressure 98/66 90/59 L 94/76 Blood Pressure Mean 76 69 82 Pulse Ox 98 93 94 Oxygen Delivery Method Room Air Nasal Cannula Room Air Oxygen Flow Rate (L/min) 06/21/24 15:04 Temperature 98.9 F Temperature Source Oral Pulse Rate 64 Respiratory Rate 18 Respiratory Effort Respiratory Pattern Blood Pressure 89/48 L Blood Pressure Mean 61 Pulse Ox 95 Oxygen Delivery Method Nasal Cannula Oxygen Flow Rate (L/min) 3 MDM MDM MDM Narrative Medical decision making narrative: 84-year-old male with history of CAD, atrial fibrillation on warfarin, CHF, chronic venous stasis ulcers, chronic hypoxia on nasal cannula, HTN presents for evaluation of worsening bilateral peripheral edema and lower extremity pain. Differential diagnosis includes but is not limited to CHF exacerbation, electrolyte abnormality, intravascular depletion. On presentation, patient is extra vascularly fluid overloaded however intravascularly depleted based on his dry mucous membranes as well as soft blood pressure in the low 90s. I suspect this is secondary to his fluid restriction as well as his home Lasix. Despite patient being intravascular depleted would benefit from Lasix therefore IV Lasix ordered. Cardiac workup ordered. EKG and chest x-ray reviewed. See below. CBC without leukocytosis. Patient has baseline anemia and thrombocytopenia. INR 1.9 patient is on warfarin. CMP shows mild hyponatremia at 132 as well as mild renal insufficiency 1.34. This is likely secondary to his Lasix. Troponin unremarkable. BNP is 2677. On chart review this is about patient's baseline. UA is negative for UTI. Patient will warrant admission for his CHF exacerbation. Hospitalist was contacted and patient was discussed with Dr. Sebastian. He would like me to reach out to cardiology. I spoke with Dr. Farley, no further recommendations agree with admission. Hospitalist accepted admission. With diuresis patient's blood pressure now 89/48. Patient will be admitted to the ICU given that he will need close blood pressure monitoring with his diuresis. EKG: Interpreted by me/EM physician: EKG shows sinus rhythm with PACs. Patient has a known right bundle branch block. He has multiple ST depressions and nonspecific ST changes which are similar to previous EKG on 05/23/2024. No ST elevation. Diagnostic: Interpreted by me/EM physician: Chest x-ray shows bilateral pleural effusions with pulmonary edema. This was compared to previous chest x-ray and is worse on the right. Impression: 1. CHF exacerbation with known end-stage CHF 2. Hypotension secondary to intravascular depletion and diuresis use Lab Data Labs: Laboratory Results - last 24 hr 06/21/24 06/21/24 06/21/24 11:59 12:56 13:15 WBC 7.7 RBC 3.65 L Hgb 11.1 L Hct 35.9 L MCV 98.4 H MCH 30.4 MCHC 30.9 L RDW Std Deviation 67.8 H RDW Coeff of Abdirahman 18.9 H Plt Count 142 L MPV 10.8 Immature Gran % (Auto) 0.100 Neut % (Auto) 80.0 H Lymph % (Auto) 6.2 L Mcpherson % (Auto) 7.9 Eos % (Auto) 5.7 H Baso % (Auto) 0.1 Absolute Neuts (auto) 6.2 Absolute Lymphs (auto) 0.48 L Nucleated RBC % 0 Differential Comment SCANNED PT 22.0 H INR 1.9 Sodium 132 L Potassium 4.3 Chloride 94 L Carbon Dioxide 34.0 H Anion Gap 4 L BUN 39 H Creatinine 1.34 H Estim Creat Clear Calc 38.92 Est GFR (MDRD) Af Amer 65 Est GFR (MDRD) Non-Af 54 L BUN/Creatinine Ratio 29.1 H Glucose 104 Calcium 8.9 Troponin I High Sens 19 B-Natriuretic Peptide 2677.1 H Urine Color Urine Clarity Urine pH Ur Specific [place] Urine Protein Urine Glucose (UA) Urine Ketones Urine Occult Blood Urine Nitrite Urine Bilirubin Urine Urobilinogen Ur Leukocyte Esterase Urine RBC Urine WBC Ur Squamous Epith Cells Urine Bacteria Hyaline Casts Urine Mucus 06/21/24 14:18 WBC RBC Hgb Hct MCV MCH MCHC RDW Std Deviation RDW Coeff of Abdirahman Plt Count MPV Immature Gran % (Auto) Neut % (Auto) Lymph % (Auto) Mcpherson % (Auto) Eos % (Auto) Baso % (Auto) Absolute Neuts (auto) Absolute Lymphs (auto) Nucleated RBC % Differential Comment PT INR Sodium Potassium Chloride Carbon Dioxide Anion Gap BUN Creatinine Estim Creat Clear Calc Est GFR (MDRD) Af Amer Est GFR (MDRD) Non-Af BUN/Creatinine Ratio Glucose Calcium Troponin I High Sens B-Natriuretic Peptide Urine Color Yellow Urine Clarity Clear Urine pH 6.5 Ur Specific [place] 1.010 Urine Protein 15 H Urine Glucose (UA) Normal Urine Ketones Negative Urine Occult Blood Negative Urine Nitrite Negative Urine Bilirubin Negative Urine Urobilinogen Normal Ur Leukocyte Esterase Negative Urine RBC 0 SEEN Urine WBC 0 SEEN Ur Squamous Epith Cells 0 SEEN Urine Bacteria 0 SEEN Hyaline Casts 0-5 SEEN Urine Mucus 0 SEEN Radiography Diagnostic Testing: Clinical Impression(s) from Imaging Studies Chest X-Ray 06/21/24 12:50 IMPRESSION: Bilateral pleural effusions with bibasilar atelectasis and/or infiltration worse on the right side superimposed on mild degree of CHF. Prior CABG. Electronically Signed: Carlos Ron MD at 13:26 EST , Discharge Plan Triage Chief Complaint: General Illness ED Provider: rAtemio Abad Dx/Rx/DC Orders Prescriptions: No Action cholecalciferol (vitamin D3) 125 mcg (5,000 unit) tablet 125 mcg PO DAILY hydrochlorothiazide 25 mg tablet 25 mg PO QDAY guaifenesin [Mucinex] 600 mg tablet extended release 12hr 600 mg PO BID potassium chloride 20 mEq tablet extended release 40 meq PO BID clonazepam [Klonopin] 0.5 MG tablet 0.5 mg PO TID Patient Comments: ANXIETY aspirin 81 MG tablet 81 mg PO QHS Patient Comments: HEART ascorbic acid (vitamin C) 500 MG tablet 1,000 mg PO DAILY@0800 Patient Comments: SUPPLEMENT PreserVision AREDS-2 250-90-40-1 mg Capsule 1 tab PO BID albuterol sulfate 90 mcg/actuation HFA aerosol inhaler 2 puff inhalation Q4H PRN PRN (Reason: wheezing) carvedilol 6.25 mg Tablet 6.25 mg PO BIDCM 30 Days Qty: 60 0RF atorvastatin 10 mg tablet 10 mg PO QHS Qty: 90 3RF tamsulosin 0.4 mg capsule 0.4 mg PO QHS warfarin 2 mg tablet 2 mg PO .COMPLEX Qty: 90 4RF Protocol: Dose Management Condition: Wednesday Dose/Route: 2 mg Instruction: 1 x 2 mg tablet Condition: Wednesday Dose/Route: 2 mg Instruction: 1 x 2 mg tablet Condition: Wednesday Dose/Route: 2 mg Instruction: 1 x 2 mg tablet Condition: Wednesday Dose/Route: 2 mg Instruction: 1 x 2 mg tablet Condition: Dose/Route: 2 mg Instruction: 1 x 2 mg tablet Condition: Wednesday Dose/Route: 2 mg Instruction: 1 x 2 mg tablet Condition: Wednesday Dose/Route: 2 mg Instruction: 1 x 2 mg tablet Protocol Text: Adjustment Start Date: Wednesday06/19/24 INR Value: 3.1 INR Date: 06/18/24 Recheck Date: 06/26/24 Patient Comments: Pt states he takes Wednesday, Wednesday, , Wednesday & Wednesday Rx Instructions: 2 mg orally daily Wed-Wed and 3mg Wed and Sundays; or use as directed; metolazone 2.5 mg tablet 2.5 mg PO .COMPLEX Qty: 15 3RF Rx Instructions: 2.5 mg orally 05/03 and 05/04 Thirty minutes before first am Torsemide, then once weekly.; isosorbide mononitrate 30 mg tablet extended release 24 hr 30 mg PO DAILY Qty: 90 3RF Jardiance 10 mg tablet 10 mg PO DAILY Qty: 30 11RF warfarin 3 mg tablet 3 mg PO 4XW Qty: 60 3RF Protocol: Dose Management Condition: Wednesday Dose/Route: 2 mg Instruction: 1 x 2 mg tablet Condition: Wednesday Dose/Route: 2 mg Instruction: 1 x 2 mg tablet Condition: Wednesday Dose/Route: 2 mg Instruction: 1 x 2 mg tablet Condition: Wednesday Dose/Route: 2 mg Instruction: 1 x 2 mg tablet Condition: Dose/Route: 2 mg Instruction: 1 x 2 mg tablet Condition: Wednesday Dose/Route: 2 mg Instruction: 1 x 2 mg tablet Condition: Wednesday Dose/Route: 2 mg Instruction: 1 x 2 mg tablet Protocol Text: Adjustment Start Date: Wednesday06/19/24 INR Value: 3.1 INR Date: 06/18/24 Recheck Date: 06/26/24 Patient Comments: Pt takes Wednesday, Wednesday, Wednesday Rx Instructions: Use as directed torsemide 20 mg tablet 20 mg PO .COMPLEX Qty: 360 3RF Rx Instructions: 20 mg orally 2 tablets (40mg) twice a day for end stage CHF: pt is OUT; hydralazine 10 mg tablet 10 mg PO TID 90 Days Qty: 270 3RF Primary Care Provider: Handy Beltran Referrals: Handy Beltran DO [Primary Care Provider] - Print Language: Colombian
[2024-06-21] MEDS: Furosemide 40 MG/4 ML Vial IV (13:07)
[2024-06-21 13:16] LABS: Troponin-I HS 19 pg/mL (3.0-78.0)
--- NOTE | 2024-06-21 13:32 | EKG12_ITS ---
Test Reason : DYSRHYTHMIA Blood Pressure : */* mmHG Vent. Rate : 81 BPM Atrial Rate : 81 BPM P-R Int : 148 ms QRS Dur : 182 ms QT Int : 432 ms P-R-T Axes : 64 134 17 degrees QTcB Int : 501 ms Critical Test Result: STEMI Atrial fibrillation Right bundle branch block Abnormal ECG Confirmed by DEMETRA RAO, RUTH ANN ([id number]), assistant production editor LUCERO ESTRADA ([id number]) on 06/28/2024 2:01:09 P M Referred By: ROBINA Confirmed By: RUTH ANN MCCRARY MD
[2024-06-21] MEDS: Acetaminophen 500 MG Tablet PO (13:51)
[2024-06-21 14:23] LABS: Bacteria 0 SEEN /hpf (None Seen); Mucous, Urine 0 SEEN /hpf (<or=2+); Red Blood Cells-Urine 0 SEEN /hpf (0-5); Squamous Epithelial Cells - UA 0 SEEN /hpf (0-5); White Blood Cells 0 SEEN /hpf (0-5)
[2024-06-21 14:54] LABS: Color, Urine Yellow (Yellow); Glucose, Dipstick Normal (Normal); Ketone-Dipstick Negative (Negative); Leukocyte Esterase-Dipstick Negative /ul (Negative); Nitrite-Dipstick Negative (Negative); Occult Blood-Urine Negative /ul (Negative); Protein-Dipstick 15 mg/dl (Negative); Urine Bilirubin Dipstick Negative (Negative); Urine Clarity Clear (Clear); Urine Urobilinogen Normal (Normal); Urine pH 6.5 (5.0 - 8.0)
[2024-06-21 15:08] LABS: BNP,B-Type NATRIURETIC PEPTIDE 2677.1 pg/mL (0-100)
[2024-06-21 15:16] LABS: Hyaline Cast 0-5 SEEN /lpf (0-5)
--- NOTE | 2024-06-21 16:10 | PCM.HP.STD ---
HPI - General General Date of Admission: 06/21/24 Date of Service: 06/21/24 Chief Complaint: Worsening volume overload HPI Narrative DARRELL PRIETO, is a 84 M who presented to [facility] ED on 06/21/2024 for worsening volume overload. Patient has severe HFrEF and follows with cardiology. He saw Dr. Castro in the office on 06/15, see note for further details. In short, Dr. Castro noted that patient is essentially end-stage heart failure and he has been having conversations with patient and family about palliative care and hospice. Patient is seeing outpatient palliative care and has been open to hospice but they have not made this decision yet. He lives at home with his and has several kids in town that help with his care. He presented today with his and son for shortness of breath and lower extremity edema. He states this has occurred despite continuing his home diuretics and also using the Lasix subcu patches as prescribed by cardiology over the past 2 days. On arrival to ED his blood pressure was in the 90s over 60s if he was requiring 3 L nasal cannula to maintain oxygen saturations in the mid 90s. He was in known A-fib that was rate controlled. CBC and BMP were similar to baseline. BNP was very elevated at 2677. Chest x-ray showed bilateral pleural effusions with bibasilar atelectasis and or infiltration worse on the right side superimposed on mild degree of CHF. Given suspected recurrent heart failure exacerbation, hospitalist was contacted for admission. I saw the patient at bedside in the ED, and son were present. Patient was fatigued appearing but was sitting up in bed fairly comfortably and in no acute distress. He was breathing comfortably on 3 L nasal cannula. He stated that he felt somewhat weaker than his normal and had leg discomfort due to swelling and his known venous stasis ulcers. He otherwise denied any new concerns today. Denied any fevers or chills. Denied any chest pain. Denied any lightheadedness or dizziness. Denied any shortness of breath at rest. I had a lengthy conversation with patient and family regarding goals of care. I also discussed the patient over the phone with Dr. Castro shortly after my conversation with family. In short, patient and family decided that they would like for patient to be admitted with an attempt at IV diuresis. Noted to them that diuresis may be limited by his low blood pressures and they were understanding of this. Noted that low-dose dobutamine could be trialed if needed but this would put him at increased risk of V. tach/V-fib which he had about 2 months ago that led to multiple ICD shocks. Discussed that we will have radiology look with ultrasound to see if bilateral thoracenteses can be done while he is here. Noted that therapy will work with the patient while here as well. If patient's hospital course does not go well, patient and family were amenable to discussing hospice care. Their preference was for facility placement with hospice care if patient qualified for that. Will be admitted for further management. [facility] Medical History (Updated 06/21/24 @ 21:[address] 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 Longstanding persistent atrial fibrillation Personal history of colon cancer, stage III Hyperlipidemia Venous stasis ulcer Venous stasis dermatitis Edema of both legs Localized swelling of both lower legs Frailty Old age Debility History of colon cancer, stage III Atrial flutter Hypoxia Acute on chronic systolic CHF (congestive heart failure), NYHA class 4 Ventricular tachycardia, incessant Essential hypertension Ischemic cardiomyopathy 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 (congestive heart failure) History of chronic CHF Pneumonia Ventricular tachycardia (paroxysmal) Nonrheumatic mitral (valve) insufficiency Anxiety Atherosclerosis of coronary artery bypass graft of [place] heart with angina pectoris LV (left ventricular) mural thrombus Wears glasses History of steroid therapy Arthritis Kidney stone Back pain Stroke/cerebrovascular accident History of hiatal hernia Non-smoker History of pain when walking Osteoarthritis Atrial fibrillation Personal history of colonic polyps Colon cancer History of stroke Home Medications ?Medication ?Instructions ?Recorded ?Last Taken ?Type clonazepam 0.5 mg tablet (Klonopin) 0.5 mg PO TID anxiety 08/11/13 12/07/22 History ascorbic acid (vitamin C) 500 mg 1,000 mg PO DAILY@0800 supplement 07/11/15 05/22/24 History tablet aspirin 81 mg tablet,delayed 81 mg PO QHS heart health 07/11/15 05/22/24 20:00 History release vit C 250 mg-vit E 90 mg-zinc 40 1 tab PO BID eye vitamin 02/24/21 05/22/24 History mg-copper 1 oc-[id number]-ryorju capsule (PreserVision AREDS-2) cholecalciferol (vitamin D3) 125 125 mcg PO DAILY supplement 03/05/23 05/22/24 History mcg (5,000 unit) tablet atorvastatin 10 mg tablet 10 mg PO QHS cholesterol #90 tabs 09/06/23 Unknown Rx tamsulosin 0.4 mg capsule 0.4 mg PO QHS Prostate 10/13/23 Unknown History warfarin 2 mg tablet 2 mg PO .COMPLEX blood thinner #90 02/17/24 Unknown Rx TABLETS metolazone 2.5 mg tablet 2.5 mg PO .COMPLEX #15 tabs 05/02/24 Unknown Rx empagliflozin 10 mg tablet 10 mg PO DAILY diabetes #30 tabs 05/09/24 Unknown Rx (Jardiance) isosorbide mononitrate 30 mg 30 mg PO DAILY heart health #90 05/09/24 Unknown Rx tablet,extended release 24 hr tabs warfarin 3 mg tablet 3 mg PO 4XW blood thinner #60 tabs 05/22/24 Unknown Rx albuterol sulfate 90 mcg/actuation 2 puff inhalation Q4H PRN PRN 05/23/24 Unknown History aerosol inhaler wheezing carvedilol 6.25 mg tablet 6.25 mg PO BIDCM 30 days #60 tabs 05/27/24 Unknown Rx torsemide 20 mg tablet 20 mg PO .COMPLEX #360 tabs 06/06/24 Unknown Rx guaifenesin 600 mg tablet, 600 mg PO BID 06/09/24 Unknown History extended release 12 hr (Mucinex) potassium chloride 20 mEq 40 meq PO BID supplement 06/15/24 Unknown History tablet,extended release hydralazine 10 mg tablet 10 mg PO TID blood pressure 90 06/19/24 Unknown Rx days #270 tabs Allergy/AdvReac Type Severity Reaction Status Date / Time amiodarone AdvReac Severe Severe Verified 06/21/24 11:01 urinary retention requiring catheter KALEIGH Inhibitors AdvReac Other Verified 06/21/24 11:01 hydrochlorothiazide AdvReac Other Verified 06/21/24 11:01 levofloxacin (From Levaquin) AdvReac aching Verified 06/21/24 11:01 legs trouble walking spironolactone AdvReac Other Verified 06/21/24 11:01 Family History Father Hypertension Heart disease Surgical History History of coronary artery stent placement (05/27/21) History of implantable cardiac defibrillator (ICD) (02/10/17) H/O coronary artery bypass surgery (08/27/05) History of left heart catheterization History of ankle fusion History of right knee joint replacement History of colonoscopy (2016) History of left hip replacement History of cholecystectomy Hx of cataract surgery History of colon surgery Social History household members: spouse Smoking Status: Never smoker alcohol intake: never substance use type: does not use caffeine: Yes Type: coffee Number of servings: 1 ROS Constitutional Constitutional: Reports fatigue and weakness; Denies chills or fever(s) Eyes Eyes: Denies change in vision Cardiovascular Cardiovascular: Reports dyspnea on exertion and edema; Denies chest pain or palpitations Respiratory/Chest Respiratory/Chest: Reports cough, productive cough and shortness of breath with exertion; Denies shortness of breath at rest or wheezing Gastrointestinal Gastrointestinal: Denies abdominal pain, nausea or vomiting Genitourinary Genitourinary: Denies dysuria Neurologic Neurologic: Denies dizziness, focal weakness or headache(s) Vital Signs Vital Signs Vital Signs: 06/21/24 11:01 06/21/24 11:07 06/21/24 11:07 Temperature 98.9 F 97.9 F Temperature Source Oral Oral Pulse Rate 87 79 Respiratory Rate 18 18 Respiratory Effort Normal Respiratory Pattern Normal Blood Pressure 92/62 96/62 Blood Pressure Mean 72 73 Pulse Ox 99 97 Oxygen Delivery Method Nasal Cannula Room Air Oxygen Flow Rate (L/min) 3 06/21/24 12:07 06/21/24 13:00 06/21/24 14:00 Temperature 98.9 F 98.9 F 98.7 F Temperature Source Oral Temporal Oral Pulse Rate 78 85 61 Respiratory Rate 16 18 18 Respiratory Effort Respiratory Pattern Blood Pressure 98/66 90/59 L 94/76 Blood Pressure Mean 76 69 82 Pulse Ox 98 93 94 Oxygen Delivery Method Room Air Nasal Cannula Room Air Oxygen Flow Rate (L/min) 06/21/24 15:04 Temperature 98.9 F Temperature Source Oral Pulse Rate 64 Respiratory Rate 18 Respiratory Effort Respiratory Pattern Blood Pressure 89/48 L Blood Pressure Mean 61 Pulse Ox 95 Oxygen Delivery Method Nasal Cannula Oxygen Flow Rate (L/min) 3 Weight Weight: 82.8 kg Body Mass Index (BMI) 33.3 Physical Exam Const alert, oriented x3 and no apparent distress Constitutional Narrative: Elderly male, class II obesity, chronically ill-appearing, fatigued appearing, otherwise sitting up fairly comfortably in bed, answering questions appropriately, in no acute distress. General Appearance: cooperative and comfortable HEENT normocephalic, head/scalp atraumatic, hearing grossly normal bilaterally and nasal mucous membranes and turbinates normal Eyes PERRL, EOMs intact bilaterally and conjunctivae normal Neck supple Chest inspection of chest normal Resp normal respiratory effort and no use of accessory muscles Resp Narrative: Breathing comfortably on 3 L nasal cannula at rest. Decreased breath sounds in bilateral lung bases with mild crackles noted in mid lung zones. No wheezing noted. Cardio no murmurs and peripheral pulses 2+ throughout Cardio Narrative: A-fib, rate controlled. GI normal to inspection, nondistended, normoactive bowel sounds, soft to palpation, non-tender and non-distended Back/Spine normal ROM Extremity Extremity Narrative: +3-4 lower extremity pitting edema noted up to the knees. Venous stasis ulcers noted on bilateral lower legs. Neuro moves all extremities and no focal motor deficits Psych mental status grossly normal Psych Narrative: Flat affect. Results Lab / Micro Data 06/21/24 11:59 06/21/24 11:59 Labs: Laboratory Results - last 24 hr 06/21/24 11:59: WBC 7.7, RBC 3.65 L, Hgb 11.1 L, Hct 35.9 L, MCV 98.4 H, MCH 30.4, MCHC 30.9 L, RDW Std Deviation 67.8 H, RDW Coeff of Abdirahman 18.9 H, Plt Count 142 L, MPV 10.8, Immature Gran % (Auto) 0.100, Neut % (Auto) 80.0 H, Lymph % (Auto) 6.2 L, [place] % (Auto) 7.9, Eos % (Auto) 5.7 H, Baso % (Auto) 0.1, Absolute Neuts (auto) 6.2, Absolute Lymphs (auto) 0.48 L, Nucleated RBC % 0, Differential Comment SCANNED, PT 22.0 H, INR 1.9, Sodium 132 L, Potassium 4.3, Chloride 94 L, Carbon Dioxide 34.0 H, Anion Gap 4 L, BUN 39 H, Creatinine 1.34 H, Estim Creat Clear Calc 38.92, Est GFR (MDRD) Af Amer 65, Est GFR (MDRD) Non-Af 54 L, BUN/Creatinine Ratio 29.1 H, Glucose 104, Calcium 8.9 06/21/24 12:56: Troponin I High Sens 19 06/21/24 13:15: B-Natriuretic Peptide 2677.1 H 06/21/24 14:18: Urine Color Yellow, Urine Clarity Clear, Urine pH 6.5, Ur Specific [place]wingle 1.010, Urine Protein 15 H, Urine Glucose (UA) Normal, Urine Ketones Negative, Urine Occult Blood Negative, Urine Nitrite Negative, Urine Bilirubin Negative, Urine Urobilinogen Normal, Ur Leukocyte Esterase Negative, Urine RBC 0 SEEN, Urine WBC 0 SEEN, Ur Squamous Epith Cells 0 SEEN, Urine Bacteria 0 SEEN, Hyaline Casts 0-5 SEEN, Urine Mucus 0 SEEN Imaging Radiology Impression Chest X-Ray 06/21/24 12:50 IMPRESSION: Bilateral pleural effusions with bibasilar atelectasis and/or infiltration worse on the right side superimposed on mild degree of CHF. Prior CABG. Electronically Signed: Carlos Ron MD at 13:26 EST Reading Location ID and State: [address] [place] [address] , Service support , Assessment & Plan Assessment/Plan (1) Acute HFrEF (heart failure with reduced ejection fraction): (2) Localized swelling of both lower legs: (3) Debility: PLAN: Plan Patient is an 84-year-old male who presented [facility] ED on 06/21/2024 with worsening volume overload. 1. Acute HFrEF with bilateral pleural effusions and mild acute on chronic hypoxic respiratory failure ? Admit under inpatient status to the ICU. Patient with stage IV heart failure, follows with outpatient cardiology. BNP very elevated and chest x-ray with bilateral pleural effusions and vascular congestion consistent with heart failure. Discussed with Dr. Castro on admit who saw the patient in the office on 06/15. Will treat with IV Lasix drip at 10 mL/h for now. Patient has borderline low blood pressures and if BP drops below 80/50, drip will be held. Could consider low-dose dobutamine at that time but would discuss further with cardiology and family before starting. Radiology consulted for bilateral therapeutic thoracentesis; Coumadin dose held on 06/21, repeat INR ordered for morning of 06/22. If patient does not have significant improvement, low threshold to further discuss transitioning to hospice care. On 3 L nasal cannula in ED and wears 2 L at home, wean as able. 2. Persistent A-fib on Coumadin ? In rate controlled A-fib on admit. INR 1.9. Held home warfarin dose on 06/21 with plan for bilateral therapeutic thoracentesis on 06/22, restart warfarin when able. Holding home beta-mert for now given acute HFrEF. 3. History of CAD with CABG and stenting, history of HFrEF and V. tach/fib with ICD placement, hypertension, hyperlipidemia ? Follows with outpatient cardiology. Continue home aspirin and statin. Continue home low-dose hydralazine for afterload reduction. Holding home beta-mert, Jardiance, hydrochlorothiazide, and nitrate. 4. CKD stage IIIa ? Creatinine 1.34 on admit, at baseline. Monitor daily BMP. 5. Acute on chronic debility ? PT/OT/case management consulted. 6. Venous stasis dermatitis with ulcerations, stage II sacral ulcer ? Wound care consulted. Follows with wound clinic, last saw on 06/20, see note for further details. Chronic medical conditions: ? Class I obesity: BMI 34 on admit. Complicates hospital course, care and prognosis. ? Anxiety: Stable. Continue home clonazepam 3 times daily as needed. ? BPH with obstructive symptoms. Continue home Flomax. ? Mild chronic anemia: Hemoglobin 11.1 on admit, at baseline. DVT prophylaxis: Not indicated, on warfarin CODE STATUS: Full code, verified. Verified with patient and family on admission. They stated that they apparently had not discussed resuscitation status to this point. They preferred full code for now but they were willing to think about a DNR CODE STATUS given that patient is considering hospice care. Expected disposition: TBD Total clinical time spent by myself addressing the patient's medical issues, reviewing all the data, and collaborating with patient's care team: 75 minutes. Charges/Coding Visit Charges Inpatient E&M: 77444 Init Hosp L3
[2024-06-21] MEDS: Furosemide 500 MG in Empty Viaflex 50 mL 1 EACH CONT INF (18:55)
--- NOTE | 2024-06-21 19:25 | CM.ED ---
Social Work Reason for referral: family concern SW entered patients room, patient was alert and oriented. Patients and son were also at bedside. Patients was tearful, stating she was very worried about her . When asked about plans post discharge, patients son stated both patient and were supposed to be admitting to [facility] in [place] tomorrow, that they would be moving into an apartment in the Assisted Living side of the facility. Both patient and stated they understood it would be an adjustment but they were unable to continue living on their own. SW offered supportive listening and answered questions as able. No further needs identified. Cary Collado, [employer] FIELD COORDINATOR, SAP MOBILITY ARCHITECT
[2024-06-21] MEDS: Tamsulosin HCl 0.4 MG Capsule PO (20:58)
[2024-06-21] MEDS: guaiFENesin 600 MG Tablet PO (20:58)
[2024-06-21] MEDS: Multivitamin (Healthy Eyes) Capsule 1 CAP PO (20:58)
[2024-06-21] MEDS: Atorvastatin Calcium 10 MG Tablet PO (20:58)
[2024-06-21] MEDS: Aspirin E.C. 81 MG Tablet PO (20:59)
[2024-06-21] MEDS: Potassium Chloride Oral Tablet 20 MEQ 40 MEQ PO (20:59)
[2024-06-21 21:44] LABS: AST(SGOT) 17 U/L (15-37); Alanine Aminotransfer ALT/SGPT 24 U/L (16-61); Albumin, Serum 2.9 g/dL (3.2-5.0); Alkaline Phosphatase 149 U/L (45-117); Bilirubin, Direct 0.43 mg/dL (0.00-0.30); Globulin 3.1 g/dL (2.2-4.2)
[2024-06-21] MEDS: Acetaminophen 325 MG Tablet 650 MG PO (23:36)
[2024-06-21] MEDS: clonazePAM 0.5 MG Tablet PO (23:36)
[2024-06-22] VITALS (37 sets, daily range): BP systolic 80–110; BP diastolic 42–78; PULSE 73–95; RESP 12–21; TEMP 36.2–37.8; O2SAT 93–100; BMI 31.0
--- NOTE | 2024-06-22 | IMM_PTH ---
PATIENT: DARRELL PRIETO LOC: PCU U#:[id number] AGE/SX: 84/M ROOM: [facility] RE06/21/[address]: Dr. Gigi Sebastian, : 1940 BED: 1 DIS: 06/25/2024 SPEC #: [id number] RECD: 06/26/24 11:36 STATUS: OG REQ #: [id number] JOSÉ MANUEL: 06/22/24 00:[address]: James Cormier DEPT: IMMUNOHISTOCHEMISTRY RECD BY: Nohemi Yun ENTERED: 06/26/24 11:40 SP TYPE: IMMUNO OTHR DR: DO Dr. Handy Lindsey DO Tissues: THORACIC FLUID Procedures: RCC (add) NAPSIN A (add) Morales Ret (add) CK20 (add) CK5-6 (add) CK7 (add) CK8 (add) HEP PAR (add) TTF1 (add) Vimentin (add) Pankeratin (initial) P40 (add) PSAP (add) CD68 (ADD) PHYSICIAN & [place] [phone] SPECIMEN INFORMATION: Tissue Source: Thoracentesis fluid Clinical Info: Pleural effusion Specimen Number: [id number] CPT code: [id number] METHODOLOGY: Deparaffinized sections of prefer/formalin-fixed tissue or PAP/DQ stained slides are incubated with monoclonal/polyclonal antibodies/oligonucleotide probes. Localization is made via biotin free immunoperoxidase method. Appropriate controls are performed and reacted as expected. Results on target cell population are indicated in the following table: RESULTS: ANTIBODY / CLONE RESULT AE1-3 (AE1/AE3/PCK26) negative* CK7 (OV-TL12/30) negative * CK8 (37otykV84) negative * CK20 (KS20.8) negative CDX2 ([id number]) negative Vimentin (V9) negative* CD68 (KP-1) negative TTF-1 (8G7G3/1) negative Napsin A (Rabbit Polyclonal) negative HepPar (OCh1E5) negative RCC (PN-15) negative PSAP (PASE/4LJ) negative CALRET (polyclonal) negative * CK5-6 (D5 & 1684) negative * P40 (BC28) negative * Positive for mesothelial cells These tests were developed and their performance characteristics determined by [facility]. They may not have been cleared or approved by the U.S. Food and Drug Administration. The FDA has determined that such clearance or approval is not necessary. The above immunohistochemical/dualISH markers are ordered and reviewed by the Pathologist. INTERPRETATION: Thoracentesis fluid for cytology (cytospins and cellblock): Negative for malignant cells. 06/27/2024
[2024-06-22 04:25] LABS: Hematocrit 33.6 % (40-54); Hemoglobin 10.5 g/dL (13.0-16.5); Mean Corp Hgb Conc 31.3 g/dL (32-36); Mean Corpuscular Hgb 30.3 pg (27.0-32.0); Mean Corpuscular Volume 96.8 fL (80-94); Mean Platelet Vol. 10.5 fl (6.2-12.0); POSITIVE MORPHOLOGY YES; Platelet Count 126 K/mm3 (150-450); RBC Distribution Width SD 66.7 fl (35.1-43.9); Red Blood Count 3.47 M/mm3 (4.6-6.2); White Blood Count 7.9 K/mm3 (4.4-11.0)
[2024-06-22 04:30] LABS: Scan Indicated on CBC? Y/N YES- FLAGS NOTED
[2024-06-22 04:35] LABS: Prothrombin Time (Protime)PT. 22.3 SECONDS (11.7-14.9)
[2024-06-22 04:43] LABS: AST(SGOT) 17 U/L (15-37); Alanine Aminotransfer ALT/SGPT 24 U/L (16-61); Albumin, Serum 2.8 g/dL (3.2-5.0); Alkaline Phosphatase 142 U/L (45-117); Anion Gap 4 (5-15); BUN 36 mg/dL (7-18); Calcium,Total 8.5 mg/dL (8.5-10.1); Chloride 96 mmol/L (98-107); EST Glomerular Filtration Rate 61 mL/min (>60); Est Glom Filt Rate - Afr Amer 74 mL/min (>60); Estimated Creatinine Clearance 40.89 ml/min; Globulin 2.9 g/dL (2.2-4.2); Glucose 100 mg/dL (74-106); Potassium 4.5 mmol/L (3.5-5.1); Protein, Total 5.7 g/dL (6.4-8.2); Sodium Level 134 mmol/L (136-145)
[2024-06-22 05:00] LABS: Differential Comment SCANNED
[2024-06-22] MEDS: hydrALAZINE 10 MG Tablet PO ×3 (06:27→20:38)
[2024-06-22] MEDS: 0.9% Saline Lock 10 ML Syringe IV (06:29)
[2024-06-22] MEDS: Acetaminophen 325 MG Tablet 650 MG PO ×3 (08:08→20:29)
[2024-06-22] MEDS: Ascorbic Acid 500 MG Tablet 1000 MG PO (08:08)
[2024-06-22] MEDS: Multivitamin (Healthy Eyes) Capsule 1 CAP PO ×2 (09:52→20:30)
[2024-06-22] MEDS: Potassium Chloride Oral Tablet 20 MEQ 40 MEQ PO ×2 (09:52→20:30)
[2024-06-22] MEDS: guaiFENesin 600 MG Tablet PO ×2 (09:53→20:30)
--- NOTE | 2024-06-22 10:43 | WOUNDNOTE ---
wound photo: left lower leg
--- NOTE | 2024-06-22 10:44 | WOUNDNOTE ---
wound photo: right lower leg
--- NOTE | 2024-06-22 10:44 | WOUNDNOTE ---
wound photo: right buttock/sacrum
--- NOTE | 2024-06-22 11:32 | CASEMGMT ---
Social Work SW met with pt, pt's spouse and pt's son Scot and introduced self and role of SW. SW had received report that pt and had a room ready to move into at [facility]. SW broached this topic and pt nor indicated they were in agreement with this discharge plan. Pt stating that he would be looking for the best discharge option. Pt tearful throughout the conversation and SW provided emotional support. SW met with pt's sons Scot and David outside the room. Sons report that pt's has dementia and is unable to be left alone due to safety concerns. Pt's cognition is appropriate, but pt has many health issues. Pt and live alone in a one story home. Pt has 5 sons that live locally and assist frequently, however cannot provide 24 hour care. Sons confirm an assisted living room has been secured at [facility] and pt and could move in as early as today, however pt and are not in agreement with this at this time. Sons did state that physician did speak with the family yesterday regarding hospice care going forward. Sons report pt was sleeping and not involved in this conversation. Sons uncertain if pt would be agreeable to this. SW did explained hospice philosophy and hospice services in the home, at a facility (like [facility] or a SNF) and the [facility]. SW will continue to follow for support and dc planning. CARA Muniz
--- NOTE | 2024-06-22 12:00 | NURSING ---
Patient left unit for thoracentesis
--- NOTE | 2024-06-22 12:20 | FLU_PTH ---
PATIENT: DARRELL PRIETO LOC: [facility] U#:[id number] AGE/SX: 84/M ROOM: [facility] RE06/21/[address]: Dr. Gigi Sebastian DO : 1940 BED: 1 DIS: 06/25/2024 SPEC #: [id number] RECD: 06/22/24 13:30 STATUS: OG REQ #: [id number] JOSÉ MANUEL: 06/22/24 12:[address]: James Cormier DEPT: CYTOLOGY RECD BY: Kaia Moran ENTERED: 06/23/24 08:08 SP TYPE: Fluid OTHR DR: DO Dr. Handy Lindsey DO Tissues: Pleural fluid, NOS Procedures: Special Stain Group II Special Stain Group I Mucicarmine Stain (control) Surgery Specimen Level IV Cytospin Fluid HEADER OPERATION: Thoracentesis fluid PRE-OP DIAGNOSIS: Pleural effusion TISSUE SUBMITTED: Thoracentesis fluid for cytology DIAGNOSIS CYTOLOGY Thoracentesis fluid for cytology (cytospins and cellblock): Negative for malignant cells. See comment. 06/27/2024 COMMENT Immunohistochemistry ([id number]) supports the above diagnosis. Mucin stain with matched control was used in the evaluation of this case. 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 Clinical correlation and appropriate follow up are necessary. CYTOLOGY STUDY Slides are reviewed. CYTOLOGY GROSS Received is 90 ml of dark cory cloudy fluid labeled with the patient's name and and designated per the requisition as Thoracentesis fluid. Submitted for cytology preparation including cell block. Mr 06/23/2024 TC:5 CPT: 22612,04698 ,75611
[2024-06-22] MEDS: Lidocaine 2% (20 ml mdv) 20 ML Vial INFILT (12:28)
--- NOTE | 2024-06-22 12:40 | RAD_ITS ---
STUDY: X-RAY CHEST REASON FOR EXAM: Male, 84 years old. Post thoracentesis TECHNIQUE: AP and inspiration expiration views. COMPARISON: Comparison is made with prior study dated June 21, 2024. FINDINGS: The patient is status post right thoracentesis. There is no evidence of pneumothorax. RAD/Chest Insp/Exp 2 View IMPRESSION: Status post right thoracentesis. No evidence of pneumothorax. Electronically Signed: Carlos Ron MD at 12:56 EST ,
--- NOTE | 2024-06-22 12:42 | PCM.OPRPT ---
Problems Associated Problem List Diagnoses (1) Pleural effusion: Procedures Radiology Radiology US Procedures: 90850 Thoracentesis Operative Report (Standard) Operative Information Date of Procedure: 06/22/24 Pre-Operative Diagnosis: Pleural effusion Post-Operative Diagnosis: Pleural effusion Surgery/Procedure Performed: Ultrasound-guided thoracentesis of the right pleural effusion paint roller covermaker: No Type of Anesthesia: Local Procedure Start Time: 12:16 Procedure Stop Time: 12:40 Select all DRAINS/GRAFTS/IMPLANTS that apply: None Estimated Blood Loss: 0 Specimen collected: Yes Description of specimen(s) removed: 100 cc serosanguineous Description of surgery: PROCEDURE: Ultrasound Guided Thoracentesis ORDERING PROVIDER: Dr Sebastian INDICATION: Male, 84 years old. Thoracentesis for pleural effusion. PROVIDER: Tiffany Saez CNP PROCEDURE: The risks, benefits, and alternatives to the procedure were explained to the patient. The specific risks of bleeding, infection, and pneumothorax requiring chest tube insertion were discussed and accepted. Written informed consent was obtained. The patient was placed in the sitting, upright position. Ultrasonographic evaluation of the bilateral lower pleural spaces was carried out. An adequate pocket was identified in the right lower lobe. The overlying skin was prepped with chlorhexidine and draped in sterile fashion. 2 % lidocaine was administered subcutaneously for local anesthesia. Under ultrasound guidance, a 5-Bulgarian thoracentesis needle/catheter system was advanced into the right posterior lower pleural fluid collection. 1430 ml of serosanguineous colored fluid was drained. The catheter was removed, and a sterile dressing was applied. The patient tolerated the procedure well. A chest x-ray was ordered. IMPRESSION: Successful ultrasound guided thoracentesis of right pleural effusion. Surgical Findings: Uncomplicated Complications Complications: No
[2024-06-22 14:03] LABS: LDH 230 U/L (87-241)
[2024-06-22 14:08] LABS: Body Fluid Mononuclear WBC # 0.145 10^3/uL; Body Fluid Mononuclear WBC % 61.1 %; Body Fluid Polynuclear WBC # 0.092 10^3/uL; Body Fluid Polynuclear WBC % 38.9 %; Body Fluid Total Cells Counted 0.245 10^3/ul; Red Cell Count/Body Fluid 0.025 10^6/ul; White Blood Count/Body Fluid 0.237 10^3/uL
[2024-06-22 14:12] LABS: Auto B Fluid Analyzer BKGD Ct COUNTS W/IN LIMITS (W/IN LIMITS)
[2024-06-22 14:14] LABS: Appearance/Body Fluid CLOUDY; Color/Body Fluid RED; Source- Body Fluid PLEURAL FLUID
[2024-06-22] MEDS: clonazePAM 0.5 MG Tablet PO ×2 (14:18→20:29)
[2024-06-22 14:28] LABS: Glucose, Body Fluid 132 mg/dL (40-70); LDH,Body Fluid 84 Units/L (Not Establ.); Protein, Body Fluid 1.8 g/dL (Not Establ.)
[2024-06-22 15:04] LABS: Body Fluid QC Type(s) BF3Q; Lymphocytes 27 %; Macrophages 5 %; Monocytes 32 %; Neutrophil (Segs) 34 %; Other Cell Type/BF 2 %
--- NOTE | 2024-06-22 16:07 | PN.HOSP_ITS ---
Subjective Subjective Doing well, no issues overnight plan for thoracentesis today Objective Data Objective Data Vital Signs: Vital Signs Temp Pulse Resp BP Pulse Ox O2 Del Method O2 Flow Rate 100.0 F H 73 14 92/64 95 Nasal Cannula 3 06/22/24 13:00 06/22/24 15:31 06/22/24 15:00 06/22/24 15:31 06/22/24 15:00 06/22/24 15:00 06/22/24 15:00 Oxygen Flow Rate (L/min) 3 Oxygen Delivery Method Nasal Cannula Weight: 168 lb 10.458 oz Body Mass Index (BMI) 31.0 Intake & Output: Intake and Output for Last 24 Hours 06/21/24 06/22/24 06/23/24 03:59 03:59 03:59 Intake Total 400 / 400 220.71 / 220.71 Output Total 650 / 650 0 / 2080 Balance -250 / -250 -1859.29 / -1859.29 Lab / Micro Data 06/22/24 04:13 06/22/24 04:13 Labs: Laboratory Results - last 24 hr 06/21/24 12:56: Total Bilirubin 1.10 H, Direct Bilirubin 0.43 H, AST 17, ALT 24, Alkaline Phosphatase 149 H, Total Protein 6.0 L, Albumin 2.9 L, Globulin 3.1 06/22/24 04:13: WBC 7.9, RBC 3.47 L, Hgb 10.5 L, Hct 33.6 L, MCV 96.8 H, MCH 30.3, MCHC 31.3 L, RDW Std Deviation 66.7 H, RDW Coeff of Abdirahman 19.0 H, Plt Count 126 L, MPV 10.5, Differential Comment SCANNED, PT 22.3 H, INR 2.0, Sodium 134 L, Potassium 4.5, Chloride 96 L, Carbon Dioxide 35.0 H, Anion Gap 4 L, BUN 36 H, Creatinine 1.20, Estim Creat Clear Calc 40.89, Est GFR (MDRD) Af Amer 74, Est GFR (MDRD) Non-Af 61, BUN/Creatinine Ratio 30.0 H, Glucose 100, Calcium 8.5, T otal Bilirubin 1.10 H, AST 17, ALT 24, Alkaline Phosphatase 142 H, Lactate Dehydrogenase 230, Total Protein 5.7 L, Albumin 2.8 L, Globulin 2.9, Albumin/Globulin Ratio 1.0 06/22/24 13:16: Fluid Glucose 132 H, Fluid Total Protein 1.8, Fluid LDH 84 06/22/24 13:25: Fluid Source PLEURAL FLUID, Fluid Color RED, Fluid Appearance CLOUDY, Fluid WBC 0.237, Fluid RBC 0.025, Fluid Tot Cell Count 0.245, Fld Polynuclear WBCs # 0.092, Fld Polynuclear WBCs % 38.9, Fluid Mononuclear WBCs 0.145, Fld Mononuclear WBCs % 61.1, Fluid Neutrophils 34, Fluid Lymphocytes 27, Fluid Monocytes 32, Fluid Macrophages 5, Fluid Other Cells 2, Fl Pathologist Comment May follow, Fluid Comment 2 SEE COMMENT Radiography Diagnostic Testing: Radiology Impression Chest X-Ray 06/22/24 12:40 IMPRESSION: Status post right thoracentesis. No evidence of pneumothorax. Electronically Signed: Carlos Ron MD at 12:56 EST Reading Location ID and State: [facility] / [place] , Service support , Physical Exam Narrative General: Alert, Oriented x3, Cooperative, No apparent distress HEENT: Atraumatic, PERRLA, EOMI, Normocephalic Oral: Moist Mucosa Neck: Supple, No JVD Lungs: Diminished, Normal air movement, scattered rhonchi, No wheeze, No rales Cardiovascular: Regular rate, Regular Rhythm, Normal S1, Normal S2, No murmurs Abdomen: Soft, Non Tender, Non-Distended, No Hepato-splenomegaly Extremities: Edema, Capillary Refill Less than 3 Seconds Skin: Bilateral stasis ulcers with weeping edema Musculoskeletal: No Tenderness to Palpation of Joints or Extremities Neurological: No focal neurological deficits, Motor Exam 5/5 strength throughout, Sensory exam intact to light touch and pain Psych/Mental Status: Flat Assessment & Plan Assessment/Plan (1) Acute HFrEF (heart failure with reduced ejection fraction): (2) Localized swelling of both lower legs: (3) Debility: PLAN: Plan 1. Acute HFrEF with bilateral pleural effusions and mild acute on chronic hypoxic respiratory failure ? Admit under inpatient status to the ICU. Patient with stage IV heart failure, follows with outpatient cardiology. BNP very elevated and chest x-ray with bilateral pleural effusions and vascular congestion consistent with heart failure. Discussed with Dr. Castro on admit who saw the patient in the office on 06/15. Will treat with IV Lasix drip at 10 mL/h for now. Patient has borderline low blood pressures and if BP drops below 80/50, drip will be held. Could consider low-dose dobutamine at that time but would discuss further with cardiology and family before starting. Radiology consulted for bilateral therapeutic thoracentesis; Coumadin dose held on 06/21, repeat INR ordered for morning of 06/22. If patient does not have significant improvement, low threshold to further discuss transitioning to hospice care. On 3 L nasal cannula in ED and wears 2 L at home, wean as able. 06/22/2024: Plan for thoracentesis today blood pressures on the softer side so may need to hold Lasix drip and potentially transition to bolus dosing 2. Persistent A-fib on Coumadin ? In rate controlled A-fib on admit. INR 1.9. Held home warfarin dose on 06/21 with plan for bilateral therapeutic thoracentesis on 06/22, restart warfarin when able. Holding home beta-mert for now given acute HFrEF. 06/22/2024: Will restart Coumadin tomorrow, INR today is 2.0 3. History of CAD with CABG and stenting, history of HFrEF and V. tach/fib with ICD placement, hypertension, hyperlipidemia ? Follows with outpatient cardiology. Continue home aspirin and statin. Continue home low-dose hydralazine for afterload reduction. Holding home beta- mert, Jardiance, hydrochlorothiazide, and nitrate. 4. CKD stage IIIa ? Creatinine 1.34 on admit, at baseline. Monitor daily BMP. 5. Acute on chronic debility ? PT/OT/case management consulted. 6. Venous stasis dermatitis with ulcerations, stage II sacral ulcer ? Wound care consulted. Follows with wound clinic, last saw on 06/20, see note for further details. Chronic medical conditions: ? Class I obesity: BMI 34 on admit. Complicates hospital course, care and prognosis. ? Anxiety: Stable. Continue home clonazepam 3 times daily as needed. ? BPH with obstructive symptoms. Continue home Flomax. ? Mild chronic anemia: Hemoglobin 11.1 on admit, at baseline. DVT prophylaxis: Not indicated, on warfarin CODE STATUS: Full code, verified. Verified with patient and family on admission. They stated that they apparently had not discussed resuscitation status to this point. They preferred full code for now but they were willing to think about a DNR CODE STATUS given that patient is considering hospice care. Expected disposition: TBD Charges/Coding Visit Charges Inpatient E&M: 12322 Subs Hosp L2
[2024-06-22] MEDS: MELATONIN 3 MG TABLET PO (20:29)
[2024-06-22] MEDS: Tamsulosin HCl 0.4 MG Capsule PO (20:30)
[2024-06-22] MEDS: Atorvastatin Calcium 10 MG Tablet PO (20:30)
[2024-06-22] MEDS: Aspirin E.C. 81 MG Tablet PO ×2 (20:30)
[2024-06-23] VITALS (23 sets, daily range): BP systolic 83–117; BP diastolic 52–71; PULSE 72–113; RESP 12–23; TEMP 36.6–37.8; O2SAT 94–99; BMI 31.2
[2024-06-23] MEDS: hydrALAZINE 10 MG Tablet PO ×3 (05:07→21:36)
[2024-06-23] MEDS: Acetaminophen 325 MG Tablet 650 MG PO ×2 (05:07→17:03)
[2024-06-23] MEDS: 0.9% Saline Lock 10 ML Syringe IV (05:08)
[2024-06-23 05:11] LABS: Absolute Lymphocyte Count 0.48 X10^3/uL (0.83-4.51); Basophil# 0.02 X10^3/uL; Basophil% 0.2 % (0-1); Eosinophil# 0.31 X10^3/uL; Eosinophils% 3.7 % (0-5); Hematocrit 36.2 % (40-54); Lymphocyte # 0.48 X10^3/ul (0.83-4.51); Lymphocyte % 5.7 % (19-41); Mean Corp Hgb Conc 30.4 g/dL (32-36); Mean Corpuscular Hgb 29.9 pg (27.0-32.0); Mean Corpuscular Volume 98.4 fL (80-94); Mean Platelet Vol. 10.5 fl (6.2-12.0); Monocyte# 0.59 X10^3/uL; NRBC Flagged by Analyzer 0 % (0-5); Neutrophil # 6.98 X10^3/uL (2.7-7.7); POSITIVE DIFFERENTIAL YES; POSITIVE MORPHOLOGY YES; Platelet Count 133 K/mm3 (150-450); RBC Distribution Width CV 19.2 % (11.6-14.6); RBC Distribution Width SD 69.3 fl (35.1-43.9); Red Blood Count 3.68 M/mm3 (4.6-6.2); White Blood Count 8.4 K/mm3 (4.4-11.0)
[2024-06-23 05:25] LABS: Anion Gap 3 (5-15); BUN 39 mg/dL (7-18); Calcium,Total 8.5 mg/dL (8.5-10.1); Chloride 95 mmol/L (98-107); Creatinine, Serum 1.22 mg/dL (0.70-1.30); EST Glomerular Filtration Rate 60 mL/min (>60); Est Glom Filt Rate - Afr Amer 73 mL/min (>60); Estimated Creatinine Clearance 40.22 ml/min; Glucose 129 mg/dL (74-106); Potassium 4.9 mmol/L (3.5-5.1); Sodium Level 133 mmol/L (136-145)
[2024-06-23 06:36] LABS: Differential Indicated SCAN CRITERIA MET
[2024-06-23 06:48] LABS: Anisocytosis 1+; Differential Comment SCANNED; Stomatocyte 1+
[2024-06-23] MEDS: Multivitamin (Healthy Eyes) Capsule 1 CAP PO ×2 (10:14→21:36)
[2024-06-23] MEDS: Ascorbic Acid 500 MG Tablet 1000 MG PO (10:15)
[2024-06-23] MEDS: Potassium Chloride Oral Tablet 20 MEQ 40 MEQ PO ×2 (10:15→21:35)
[2024-06-23] MEDS: guaiFENesin 600 MG Tablet PO ×2 (10:15→21:35)
[2024-06-23] MEDS: Furosemide 40 MG Tablet PO ×2 (10:17→17:03)
--- NOTE | 2024-06-23 11:37 | PN.HOSP_ITS ---
Subjective Subjective Doing well, but back to his baseline oxygen of 2.5 L. He was able to ambulate in the hallway but needed a wheelchair to get back to the room Objective Data Objective Data Vital Signs: Vital Signs Temp Pulse Resp BP Pulse Ox O2 Del Method O2 Flow Rate 99.0 F 83 23 H 104/64 98 Nasal Cannula 3 06/23/24 10:00 06/23/24 11:00 06/23/24 11:00 06/23/24 11:00 06/23/24 11:00 06/23/24 11:00 06/23/24 11:00 Oxygen Flow Rate (L/min) 3 Oxygen Delivery Method Nasal Cannula Weight: 169 lb 12.095 oz Body Mass Index (BMI) 31.2 Intake & Output: Intake and Output for Last 24 Hours 06/22/24 06/23/24 06/24/24 03:59 03:59 03:59 Intake Total 400 / 400 220.71 / 220.71 0 / 0 Output Total 650 / 650 2630 / 2630 350 / 350 Balance -250 / -250 -2409.29 / -2409.29 -350 / -350 Lab / Micro Data 06/23/24 05:00 06/23/24 05:00 Labs: Laboratory Results - last 24 hr 06/22/24 04:13: Lactate Dehydrogenase 230 06/22/24 13:16: Fluid Glucose 132 H, Fluid Total Protein 1.8, Fluid LDH 84 06/22/24 13:25: Fluid Source PLEURAL FLUID, Fluid Color RED, Fluid Appearance CLOUDY, Fluid WBC 0.237, Fluid RBC 0.025, Fluid Tot Cell Count 0.245, Fld Polynuclear WBCs # 0.092, Fld Polynuclear WBCs % 38.9, Fluid Mononuclear WBCs 0.145, Fld Mononuclear WBCs % 61.1, Fluid Neutrophils 34, Fluid Lymphocytes 27, Fluid Monocytes 32, Fluid Macrophages 5, Fluid Other Cells 2, Fl Pathologist Comment May follow, Fluid Comment 2 SEE COMMENT 06/23/24 05:00: WBC 8.4, RBC 3.68 L, Hgb 11.0 L, Hct 36.2 L, MCV 98.4 H, MCH 29.9, MCHC 30.4 L, RDW Std Deviation 69.3 H, RDW Coeff of Abdirahman 19.2 H, Plt Count 133 L, MPV 10.5, Immature Gran % (Auto) 0.400, Neut % (Auto) 83.0 H, Lymph % (Auto) 5.7 L, [place] % (Auto) 7.0, Eos % (Auto) 3.7, Baso % (Auto) 0.2, Absolute Neuts (auto) 7.0, Absolute Lymphs (auto) 0.48 L, Nucleated RBC % 0, Differential Comment SCANNED, Anisocytosis 1+, Stomatocytes 1+, Sodium 133 L, Potassium 4.9, Chloride 95 L, Carbon Dioxide 35.0 H, Anion Gap 3 L, BUN 39 H, Creatinine 1.22, Estim Creat Clear Calc 40.22, Est GFR (MDRD) Af Amer 73, Est GFR (MDRD) Non-Af 60, BUN/Creatinine Ratio 32.0 H, Glucose 129 H, Calcium 8.5 Radiography Diagnostic Testing: Radiology Impression Chest X-Ray 06/22/24 12:40 IMPRESSION: Status post right thoracentesis. No evidence of pneumothorax. Electronically Signed: Carlos Ron MD at 12:56 EST Reading Location ID and State: [facility] / [place] , Service support , Physical Exam Narrative General: Alert, Oriented x3, Cooperative, No apparent distress HEENT: Atraumatic, PERRLA, EOMI, Normocephalic Oral: Moist Mucosa Neck: Supple, No JVD Lungs: Diminished, Normal air movement, scattered rhonchi, No wheeze, No rales Cardiovascular: Regular rate, Regular Rhythm, Normal S1, Normal S2, No murmurs Abdomen: Soft, Non Tender, Non-Distended, No Hepato-splenomegaly Extremities: Edema, Capillary Refill Less than 3 Seconds Skin: Bilateral stasis ulcers with weeping edema Musculoskeletal: No Tenderness to Palpation of Joints or Extremities Neurological: No focal neurological deficits, Motor Exam 5/5 strength throughout, Sensory exam intact to light touch and pain Psych/Mental Status: Flat Assessment & Plan Assessment/Plan (1) Acute HFrEF (heart failure with reduced ejection fraction): (2) Localized swelling of both lower legs: (3) Debility: PLAN: Plan 1. Acute HFrEF with bilateral pleural effusions and mild acute on chronic hypoxic respiratory failure ? Admit under inpatient status to the ICU. Patient with stage IV heart failure, follows with outpatient cardiology. BNP very elevated and chest x-ray with bilateral pleural effusions and vascular congestion consistent with heart failure. Discussed with Dr. Castro on admit who saw the patient in the office on 06/15. Will treat with IV Lasix drip at 10 mL/h for now. Patient has borderline low blood pressures and if BP drops below 80/50, drip will be held. Could consider low-dose dobutamine at that time but would discuss further with cardiology and family before starting. Radiology consulted for bilateral therapeutic thoracentesis; Coumadin dose held on 06/21, repeat INR ordered for morning of 06/22. If patient does not have significant improvement, low threshold to further discuss transitioning to hospice care. On 3 L nasal cannula in ED and wears 2 L at home, wean as able. 06/22/2024: Plan for thoracentesis today blood pressures on the softer side so may need to hold Lasix drip and potentially transition to bolus dosing 06/23/2024: Family would like to transition him to an assisted living but the need to move furniture and for so we will transition him to the PCU today and plan for discharge in the next 24 to 48 hours. Will likely need to have the Negron removed tomorrow as well 2. Persistent A-fib on Coumadin ? In rate controlled A-fib on admit. INR 1.9. Held home warfarin dose on 06/21 with plan for bilateral therapeutic thoracentesis on 06/22, restart warfarin when able. Holding home beta-mert for now given acute HFrEF. 06/22/2024: Will restart Coumadin tomorrow, INR today is 2.0 3. History of CAD with CABG and stenting, history of HFrEF and V. tach/fib with ICD placement, hypertension, hyperlipidemia ? Follows with outpatient cardiology. Continue home aspirin and statin. Continue home low-dose hydralazine for afterload reduction. Holding home beta- mert, Jardiance, hydrochlorothiazide, and nitrate. 4. CKD stage IIIa ? Creatinine 1.34 on admit, at baseline. Monitor daily BMP. 5. Acute on chronic debility ? PT/OT/case management consulted. 6. Venous stasis dermatitis with ulcerations, stage II sacral ulcer ? Wound care consulted. Follows with wound clinic, last saw on 06/20, see note for further details. Chronic medical conditions: ? Class I obesity: BMI 34 on admit. Complicates hospital course, care and prognosis. ? Anxiety: Stable. Continue home clonazepam 3 times daily as needed. ? BPH with obstructive symptoms. Continue home Flomax. ? Mild chronic anemia: Hemoglobin 11.1 on admit, at baseline. DVT prophylaxis: Not indicated, on warfarin CODE STATUS: Full code, verified. Verified with patient and family on admission. They stated that they apparently had not discussed resuscitation status to this point. They preferred full code for now but they were willing to think about a DNR CODE STATUS given that patient is considering hospice care. Expected disposition: TBD Charges/Coding Visit Charges Inpatient E&M: 13009 Subs Hosp L2
--- NOTE | 2024-06-23 11:44 | CASEMGMT ---
Social Work ALLEN met with pt, pt's and pt's son David to continue discussion of discharge. Pt just returned from therapy and did much better today than yesterday. DC options discussed including returning home and going to assisted living at [facility]. At this time, pt and pt's spouse are agreeable to placement at [facility]. Much support provided to pt and family regarding decision making. Per son, [place] does have a room ready for pt and however family does have to move pt's furniture and belongings into the AL before they can move in. ALLEN updated physician on discharge plan and pt can be discharged on Wednesday to the AL. Phone call placed to [facility] and VM left to confirm acceptance tomorrow. SW will await return call. Pt and family updated that dc is planned for tomorrow and plans will need to be in place for pt to admit to [place]. Son CARA Silva
--- NOTE | 2024-06-23 11:48 | CASEMGMT ---
RN JOSH called and spoke with [facility] to see if willing to restart care when patient moves to [facility] in [place]. Facility is out of range of service for [facility]. Notified ALLEN.
--- NOTE | 2024-06-23 12:07 | CASEMGMT ---
Discharge Planning A list of HH providers including quality and resource use data and consistent with the patient's preferred geographic region, medical needs, and insurance network was created in [employer]Port Guide.? This list was provided to the SW. Ciara Dhillon Discharge Planning Asst.
--- NOTE | 2024-06-23 12:13 | CASEMGMT ---
Social Work SW spoke with pt regarding continuation of home health while at [facility]. Pt is agreeable to continue home health PT/OT/SN. [facility] is unable to accept pt back as [facility] is out of the service area. A list of SNF providers including quality and resource use data and consistent with the patient?s preferred geographic region, medical needs, and insurance network were provided from the CarePort Guide. Pt preferred provider is [facility]. DC elder assistant updated and referral to be sent. RNCM updated. Pt does have home oxygen and family confirms they can bring a portable tank in and will transport pt to the assisted living tomorrow. CARA Muniz
--- NOTE | 2024-06-23 12:25 | CASEMGMT ---
Addendum entered by Ciara Dhillon 06/23/24 12:35: [facility] accepted. SW updated. Ciara Dhillon DC Planning Asst. Original Note: Discharge Planning Referral sent via [employer]Port to [facility] . Ciara Dhillon DC Planning Asst.
[2024-06-23] MEDS: Ensure Plus High Protein 120 ML LIQUID PO (12:50)
--- NOTE | 2024-06-23 13:55 | CASEMGMT ---
Social Work Return call from Will at [facility]. Will confirms pt can be admitted on Wednesday. DC instructions to be faxed at time of discharge. Will did clarify that [facility] staff cannot provide wound care/dressing changes. ALLEN updated Will that [facility] will be providing a nurse and PT/OT and HH nurse can change dressings. Will agreeable. ALLEN met with pt son David and updated on above. David understanding and agreeable that family will change dressings if needed more frequently than HHC can provide. PLAN: Mariah Narvaez. Can discharge on 06/24 if medically ready CARA Muniz
[2024-06-23 14:53] LABS: Pathologist Comment/Body Fluid Reviewed
--- NOTE | 2024-06-23 14:53 | CASEMGMT ---
SW notified SONU MORENO that Assisted Living unable to do treatments for wounds. SONU MORENO called and spoke with wound nurse to discuss wound care at time of DC. Dressing changes ok to change a couple times a week with [facility] company. SONU MORENO called [employer] to discuss, left a VM to call SONU MORENO back.
--- NOTE | 2024-06-23 15:03 | CASEMGMT ---
SONU MORENO spoke with rep at [facility]. SOC is 06/26/24. Stated they will order supplies for wound changes, asked to send a week's worth of supplies with pt to cover until supply order comes in. SONU MORENO called Wound nurse, will provide supplies to patients room to get him through until shipment arrives. Notified patient. Updated DC plan.
[2024-06-23] MEDS: clonazePAM 0.5 MG Tablet PO (15:38)
[2024-06-23] MEDS: Jantoven 2 MG Tablet PO (17:03)
[2024-06-23] MEDS: Polyethylene Glycol 3350 17 GM PACKET PO (17:38)
[2024-06-23] MEDS: Atorvastatin Calcium 10 MG Tablet PO (21:36)
[2024-06-23] MEDS: MELATONIN 3 MG TABLET PO (21:42)
[2024-06-23] MEDS: Tamsulosin HCl 0.4 MG Capsule PO (22:23)
[2024-06-24] VITALS (9 sets, daily range): BP systolic 92–109; BP diastolic 61–64; PULSE 68–89; RESP 16–18; TEMP 36.2–37; O2SAT 94–98; BMI 31.2
[2024-06-24] MEDS: Acetaminophen 325 MG Tablet 650 MG PO ×3 (01:17→23:10)
[2024-06-24] MEDS: clonazePAM 0.5 MG Tablet PO ×3 (01:55→20:15)
[2024-06-24] MEDS: hydrALAZINE 10 MG Tablet PO ×3 (06:30→20:14)
[2024-06-24 07:15] LABS: International Normalized Ratio 1.6; Prothrombin Time (Protime)PT. 18.7 SECONDS (11.7-14.9)
[2024-06-24 07:32] LABS: Anion Gap 1 (5-15); BUN 43 mg/dL (7-18); BUN/Creat Ratio 35.5 RATIO (10-20); Calcium,Total 8.7 mg/dL (8.5-10.1); Chloride 94 mmol/L (98-107); Creatinine, Serum 1.21 mg/dL (0.70-1.30); EST Glomerular Filtration Rate 61 mL/min (>60); Est Glom Filt Rate - Afr Amer 74 mL/min (>60); Estimated Creatinine Clearance 40.71 ml/min; Glucose 119 mg/dL (74-106); Potassium 5.9 mmol/L (3.5-5.1); Sodium Level 134 mmol/L (136-145)
[2024-06-24 08:45] LABS: Anion Gap 2 (5-15); BUN 42 mg/dL (7-18); BUN/Creat Ratio 37.2 RATIO (10-20); Calcium,Total 8.6 mg/dL (8.5-10.1); Chloride 95 mmol/L (98-107); Creatinine, Serum 1.13 mg/dL (0.70-1.30); EST Glomerular Filtration Rate 66 mL/min (>60); Est Glom Filt Rate - Afr Amer 80 mL/min (>60); Estimated Creatinine Clearance 43.59 ml/min; Glucose 108 mg/dL (74-106); Potassium 5.8 mmol/L (3.5-5.1); Sodium Level 133 mmol/L (136-145)
[2024-06-24] MEDS: Polyethylene Glycol 3350 17 GM PACKET PO (09:20)
[2024-06-24] MEDS: Ensure Plus High Protein 120 ML LIQUID PO ×3 (09:21→17:06)
[2024-06-24] MEDS: Dextrose 10%-Water 250 ML 999 ML IV (10:14)
[2024-06-24] MEDS: Insulin Lispro 10 UNIT in Syringe 0 ML 6 UNIT IV (10:14)
--- NOTE | 2024-06-24 11:15 | EKG12_ITS ---
Test Reason : Blood Pressure : */* mmHG Vent. Rate : 90 BPM Atrial Rate : 90 BPM P-R Int : 84 ms QRS Dur : 174 ms QT Int : 396 ms P-R-T Axes : 80 124 12 degrees QTcB Int : 484 ms Critical Test Result: STEMI Sinus rhythm with short OK with Premature supraventricular complexes Right bundle branch block Septal infarct , age undetermined Lateral injury pattern Abnormal ECG When compared with ECG of 21-Jun-2024 13:36, MANUAL COMPARISON REQUIRED DATA IS UNCONFIRMED Confirmed by MIRTHA RAO, RAE ([id number]), research editor LUCERO ESTRADA ([id number]) on 06/26/2024 12:47:33 PM Referred By: HELDER Confirmed By: RAE SHANNON MD
[2024-06-24] MEDS: Multivitamin (Healthy Eyes) Capsule 1 CAP PO ×2 (11:16→20:15)
[2024-06-24] MEDS: Ascorbic Acid 500 MG Tablet 1000 MG PO (11:16)
[2024-06-24] MEDS: Furosemide 40 MG Tablet PO ×2 (11:17→17:06)
[2024-06-24] MEDS: guaiFENesin 600 MG Tablet PO ×2 (11:17→20:15)
--- NOTE | 2024-06-24 12:40 | PCM.PN.HOSP ---
Reason for Visit Reason for Visit: Diagnoses Acute systolic (congestive) heart failure (06/21/24) Pleural effusion, not elsewhere classified (06/21/24) Localized swelling, mass and lump, lower limb, bilateral (06/21/24) Other malaise (06/21/24) Subjective Subjective Saw patient at bedside this morning. Patient had just had Negron catheter removed with plan for void trial. Patient reported ongoing lower extremity discomfort with Nahid wraps. Otherwise felt tired and fatigued today. No other acute concerns. Objective Data Objective Data Vital Signs: Vital Signs Temp Pulse Resp BP Pulse Ox O2 Del Method O2 Flow Rate 97.5 F L 80 16 99/64 95 Nasal Cannula 2.5 06/24/24 11:30 06/24/24 11:30 06/24/24 11:30 06/24/24 11:30 06/24/24 11:30 06/24/24 11:30 06/24/24 11:30 Oxygen Flow Rate (L/min) 2.5 Oxygen Delivery Method Nasal Cannula Weight: 77.1 kg Body Mass Index (BMI) 31.2 Intake & Output: Intake and Output for Last 24 Hours 06/22/24 06/23/24 06/24/24 23:59 23:59 23:59 Intake Total 420.71 / 420.71 0 / 0 400 / 400 Output Total 2330 / 2630 1450 / 1450 Balance -1909.29 / -2209.29 -1450 / -1450 400 / 400 Lab / Micro Data 06/23/24 05:00 06/24/24 12:44 Labs: Laboratory Results - last 24 hr 06/22/24 13:25: Fl Pathologist Comment Reviewed 06/24/24 06:15: PT 18.7 H, INR 1.6, Sodium 134 L, Potassium 5.9 H, Chloride 94 L, Carbon Dioxide 39.0 H, Anion Gap 1 L, BUN 43 H, Creatinine 1.21, Estim Creat Clear Calc 40.71, Est GFR (MDRD) Af Amer 74, Est GFR (MDRD) Non-Af 61, BUN/Creatinine Ratio 35.5 H, Glucose 119 H, Calcium 8.7 06/24/24 08:15: Sodium 133 L, Potassium 5.8 H, Chloride 95 L, Carbon Dioxide 37.0 H, Anion Gap 2 L, BUN 42 H, Creatinine 1.13, Estim Creat Clear Calc 43.59, Est GFR (MDRD) Af Amer 80, Est GFR (MDRD) Non-Af 66, BUN/Creatinine Ratio 37.2 H, Glucose 108 H, Calcium 8.6 Physical Exam Const alert, oriented x3 and no apparent distress Constitutional Narrative: Elderly male, class II obesity, chronically ill-appearing, mildly fatigued appearing, otherwise sitting up fairly comfortably in bed, answering questions appropriately, in no acute distress. General Appearance: cooperative and comfortable HEENT normocephalic, head/scalp atraumatic, hearing grossly normal bilaterally and nasal mucous membranes and turbinates normal Eyes PERRL, EOMs intact bilaterally and conjunctivae normal Neck supple Chest inspection of chest normal Resp normal respiratory effort and no use of accessory muscles Resp Narrative: Breathing comfortably on 2 L nasal cannula at rest. Decreased breath sounds in bilateral lung bases, improving. No wheezing noted. Cardio no murmurs and peripheral pulses 2+ throughout Cardio Narrative: A-fib, rate controlled. GI normal to inspection, nondistended, normoactive bowel sounds, soft to palpation, non-tender and non-distended Back/Spine normal ROM Extremity Extremity Narrative: +1-2 lower extremity pitting edema, improved. Nahid wraps in place. Neuro moves all extremities and no focal motor deficits Psych mental status grossly normal Psych Narrative: Flat affect. Assessment & Plan Assessment/Plan (1) Acute HFrEF (heart failure with reduced ejection fraction): (2) Localized swelling of both lower legs: (3) Debility: PLAN: Plan Patient is an 84-year-old male who presented [facility] ED on 06/21/2024 with worsening volume overload. 1. Acute HFrEF with bilateral pleural effusions and mild acute on chronic hypoxic respiratory failure ? Patient with stage IV heart failure, follows with outpatient cardiology. BNP very elevated and chest x-ray with bilateral pleural effusions and vascular congestion consistent with heart failure. Tolerated IV Lasix drip at 10 mL/h on admission with good urine output. S/p left-sided thoracentesis on 06/22 with 1430 ml of serosanguineous fluid removed, repeat chest x-ray with good resolution of effusion. Much improved from volume standpoint and appears back to baseline by 06/24, transitioned back to p.o. Lasix. Continue to monitor daily BMP and urine output. 2. Hyperkalemia ? Patient with potassium 5.9 on morning of 06/24, was 4.9 on 06/23. Repeat potassium 5.8. Suspect due to potassium supplementation given while patient on IV Lasix. EKG did show mild peaked T waves. Treated with insulin and dextrose, repeat potassium 5.4. Will continue home Lasix, potassium supplement discontinued for now. Follow-up a.m. potassium level and repeat EKG tomorrow morning. If improved and EKG with improvement, will be medically ready for discharge. 3. Persistent A-fib on Coumadin ? In rate controlled A-fib on admit. INR 1.9. Held home warfarin dose on 06/21 with plan for bilateral therapeutic thoracentesis on 06/22, restart warfarin when able. Holding home beta-mert for now given acute HFrEF. 4. History of CAD with CABG and stenting, history of HFrEF and V. tach/fib with ICD placement, hypertension, hyperlipidemia ? Follows with outpatient cardiology. Continue home aspirin and statin. Continue home low-dose hydralazine for afterload reduction. Holding home beta-mert, Jardiance, hydrochlorothiazide, and nitrate. 5. CKD stage IIIa ? Creatinine 1.34 on admit, at baseline. Monitor daily BMP. 6. Acute on chronic debility ? PT/OT/case management consulted. 7. Venous stasis dermatitis with ulcerations, stage II sacral ulcer ? Wound care following. Noted moderate amount of serous drainage on 06/23 but redness and edema improving. Wrapped with Kerlix and nahid wraps, maintain wraps as patient tolerates. 8. Acute on chronic debility ? PT/OT/case management following. Planning for discharge to assisted living at [place]. Chronic medical conditions: ? Class I obesity: BMI 34 on admit. Complicates hospital course, care and prognosis. ? Anxiety: Stable. Continue home clonazepam 3 times daily as needed. ? BPH with obstructive symptoms. Continue home Flomax. ? Mild chronic anemia: Hemoglobin 11.1 on admit, at baseline. DVT prophylaxis: Not indicated, on warfarin CODE STATUS: Full code, verified Expected disposition: Assisted living, 1 to 2 days Total clinical time spent by myself addressing the patient's medical issues, reviewing all the data, and collaborating with patient's care team: 35 minutes. Charges/Coding Visit Charges Inpatient E&M: 58816 Subs Hosp L2
[2024-06-24 13:14] LABS: Anion Gap 3 (5-15); BUN 47 mg/dL (7-18); BUN/Creat Ratio 38.8 RATIO (10-20); Calcium,Total 8.6 mg/dL (8.5-10.1); Chloride 94 mmol/L (98-107); Creatinine, Serum 1.21 mg/dL (0.70-1.30); EST Glomerular Filtration Rate 61 mL/min (>60); Est Glom Filt Rate - Afr Amer 74 mL/min (>60); Estimated Creatinine Clearance 40.71 ml/min; Glucose 167 mg/dL (74-106); Potassium 5.4 mmol/L (3.5-5.1); Sodium Level 133 mmol/L (136-145)
[2024-06-24] MEDS: Jantoven 2 MG Tablet PO (17:09)
[2024-06-24] MEDS: MELATONIN 3 MG TABLET PO (20:15)
[2024-06-24] MEDS: Aspirin E.C. 81 MG Tablet PO (20:15)
[2024-06-24] MEDS: Atorvastatin Calcium 10 MG Tablet PO (20:15)
[2024-06-24] MEDS: Tamsulosin HCl 0.4 MG Capsule PO (20:15)
[2024-06-25 02:57] VITALS: BP 100/67; PULSE 81; RESP 18; TEMP 36.2; O2SAT 98
[2024-06-25 02:59] VITALS: O2SAT 98
[2024-06-25 03:57] VITALS: BMI 31.4
[2024-06-25] MEDS: Acetaminophen 325 MG Tablet 650 MG PO (05:45)
[2024-06-25 05:47] VITALS: BP 97/62; PULSE 81
[2024-06-25] MEDS: hydrALAZINE 10 MG Tablet PO (05:47)
--- NOTE | 2024-06-25 07:26 | EKG12_ITS ---
Test Reason : DYSRHYTHMIA Blood Pressure : */* mmHG Vent. Rate : 70 BPM Atrial Rate : 70 BPM P-R Int : 136 ms QRS Dur : 188 ms QT Int : 456 ms P-R-T Axes : 55 120 15 degrees QTcB Int : 492 ms Critical Test Result: STEMI Atrial fibrillation Right bundle branch block Septal infarct , age undetermined Lateral injury pattern Abnormal ECG Confirmed by DEMETRA RAO, RUTH ANN ([id number]), telegraph editor LUCERO ESTRADA ([id number]) on 06/28/2024 1:58:53 P M Referred By: ROBINA Confirmed By: RUTH ANN MCCRARY MD
[2024-06-25 08:08] VITALS: BP 87/54; PULSE 78; RESP 16; TEMP 36; O2SAT 97
[2024-06-25] MEDS: Polyethylene Glycol 3350 17 GM PACKET PO (08:18)
[2024-06-25] MEDS: Furosemide 40 MG Tablet PO (08:18)
[2024-06-25] MEDS: guaiFENesin 600 MG Tablet PO (08:18)
[2024-06-25] MEDS: Multivitamin (Healthy Eyes) Capsule 1 CAP PO (08:18)
[2024-06-25] MEDS: Ascorbic Acid 500 MG Tablet 1000 MG PO (08:18)
[2024-06-25] MEDS: 0.9% Saline Lock 10 ML Syringe IV (08:19)
[2024-06-25] MEDS: clonazePAM 0.5 MG Tablet PO (08:22)
[2024-06-25] MEDS: Ensure Plus High Protein 120 ML LIQUID PO (08:22)
[2024-06-25 08:29] LABS: Anion Gap -2 (5-15); BUN 50 mg/dL (7-18); BUN/Creat Ratio 46.7 RATIO (10-20); Calcium,Total 8.6 mg/dL (8.5-10.1); Chloride 96 mmol/L (98-107); Creatinine, Serum 1.07 mg/dL (0.70-1.30); EST Glomerular Filtration Rate 70 mL/min (>60); Est Glom Filt Rate - Afr Amer 85 mL/min (>60); Estimated Creatinine Clearance 46.18 ml/min; Glucose 101 mg/dL (74-106); Potassium 5.4 mmol/L (3.5-5.1); Sodium Level 132 mmol/L (136-145)
--- NOTE | 2024-06-25 11:09 | PCM.DC.SUM ---
Providers Date of Admission: 06/21/24 Date of Discharge: 06/25/24 Primary Care Physician: Dr. Handy Beltran, Consultations 06/22/24 08:12 Consult: Onc/Wound/recruitment internship Routine Comment: Reason For Visit: ACUTE HFREF Diagnosis Discharge Diagnosis (1) Acute HFrEF (heart failure with reduced ejection fraction): Status: Acute Code(s): I50.21 - Acute systolic (congestive) heart failure (2) Localized swelling of both lower legs: Status: Acute Code(s): R22.43 - Localized swelling, mass and lump, lower limb, bilateral (3) Debility: Status: Acute Code(s): R53.81 - Other malaise Medications at Discharge Home Medications clonazepam 0.5 mg tablet (Klonopin) 0.5 mg PO TID anxiety 08/11/13 ascorbic acid (vitamin C) 500 mg tablet 1,000 mg PO DAILY@0800 supplement 07/11/15 aspirin 81 mg tablet,delayed release 81 mg PO QHS heart health 07/11/15 vit C 250 mg-vit E 90 mg-zinc 40 mg-copper 1 [id number] capsule (PreserVision AREDS-2) 1 tab PO BID eye vitamin 02/24/21 cholecalciferol (vitamin D3) 125 mcg (5,000 unit) tablet 125 mcg PO DAILY supplement 03/05/23 atorvastatin 10 mg tablet 10 mg PO QHS cholesterol #90 tabs 09/06/23 tamsulosin 0.4 mg capsule 0.4 mg PO QHS Prostate 10/13/23 warfarin 2 mg tablet 2 mg PO .COMPLEX blood thinner #90 TABLETS 02/17/24 isosorbide mononitrate 30 mg tablet,extended release 24 hr 30 mg PO DAILY heart health #90 tabs 05/09/24 warfarin 3 mg tablet 3 mg PO 4XW blood thinner #60 tabs 05/22/24 albuterol sulfate 90 mcg/actuation aerosol inhaler 2 puff inhalation Q4H PRN PRN wheezing 05/23/24 hydralazine 10 mg tablet 10 mg PO TID blood pressure 90 days #270 tabs 06/19/24 carvedilol 3.125 mg tablet (Coreg) 3.125 mg PO BID 30 days #60 tabs 06/25/24 guaifenesin 600 mg tablet, extended release 12 hr (Mucinex) 600 mg PO BID PRN congestion 30 days #0 tabs 06/25/24 potassium chloride 20 mEq tablet,extended release 20 meq PO DAILY 30 days #30 tabs 06/25/24 torsemide 20 mg tablet 20 mg PO BID 30 days #60 tabs 06/25/24 Hospital Course Operations None Procedures EKG, Thoracentesis and - (Chest x-ray x 2) Summary of Care Provided Minutes Spent on Discharge: 35 Hospital Course: Patient is an 84-year-old male who presented [facility] ED on 06/21/2024 with worsening volume overload. Hospital course as noted below. Patient discharged to assisted living in stable condition on 06/25. 1. Acute HFrEF with bilateral pleural effusions and mild acute on chronic hypoxic respiratory failure ? Patient with stage IV heart failure, follows with outpatient cardiology. BNP very elevated and chest x-ray with bilateral pleural effusions and vascular congestion consistent with heart failure. Tolerated IV Lasix drip at 10 mL/h on admission with good urine output. S/p left-sided thoracentesis on 06/22 with 1430 ml of serosanguineous fluid removed, repeat chest x-ray with good resolution of effusion. Much improved from volume standpoint and appears back to baseline by 06/24, transitioned back to p.o. diuretic. Will make the following changes to medication regimen on discharge. Decreased to torsemide 20 mg twice daily, Coreg 3.125 mg twice daily and potassium 20 mEq daily to be restarted on 06/28. Discontinued Jardiance and metolazone. Continue home aspirin, statin, hydralazine and isosorbide mononitrate. 2. Hyperkalemia ? Patient with potassium 5.9 on morning of 06/24, was 4.9 on 06/23. Repeat potassium 5.8. Suspect due to potassium supplementation given while patient on IV Lasix. EKG did show mild peaked T waves. Treated with insulin and dextrose, repeat potassium 5.4. Repeat potassium again 5.4 on morning of 06/25, EKG appears improved. Will discharge on torsemide as noted above. Hold home potassium supplement until 06/28 when it will be restarted at a reduced dose. 3. Persistent A-fib on Coumadin ? In rate controlled A-fib on admit. Held home warfarin dose on 06/21 for thoracentesis, restarted on 06/22. Continue home warfarin. 4. History of CAD with CABG and stenting, history of HFrEF and V. tach/fib with ICD placement, hypertension, hyperlipidemia ? Follows with outpatient cardiology. Continue home aspirin and statin. Continue home low-dose hydralazine for afterload reduction. Held home beta-mert, Jardiance and nitrate while inpatient. Discharged on regimen as noted above. 5. CKD stage IIIa ? Creatinine 1.34 on admit, at baseline. Monitor daily BMP. 6. Acute on chronic debility ? PT/OT/case management followed. Discharged to assisted living facility in stable condition on 06/25. 7. Venous stasis dermatitis with ulcerations, stage II sacral ulcer ? Wound care followed. Noted moderate amount of serous drainage on 06/23 but redness and edema improving. Wrapped with Kerlix and nahid wraps, maintain wraps as patient tolerates. Wound care to follow at facility on discharge. Chronic medical conditions: ? Class I obesity: BMI 34 on admit. Complicated hospital course, care and prognosis. ? Anxiety: Stable. Continue home clonazepam 3 times daily as needed. ? BPH with obstructive symptoms. Continue home Flomax. ? Mild chronic anemia: Hemoglobin 11.1 on admit, at baseline. Total clinical time spent by myself addressing the patient's medical issues, reviewing all the data, and collaborating with patient's care team: 35 minutes. Physical Exam Const alert, oriented x3 and no apparent distress Constitutional Narrative: Elderly male, class II obesity, chronically ill-appearing, mildly fatigued appearing, otherwise sitting up fairly comfortably in bed, answering questions appropriately, in no acute distress. Stable. General Appearance: cooperative and comfortable HEENT normocephalic, head/scalp atraumatic, hearing grossly normal bilaterally and nasal mucous membranes and turbinates normal Eyes PERRL, EOMs intact bilaterally and conjunctivae normal Neck supple Chest inspection of chest normal Resp normal respiratory effort and no use of accessory muscles Resp Narrative: Breathing comfortably on 3 L nasal cannula at rest. Decreased breath sounds in bilateral lung bases, improving. No wheezing noted. Cardio no murmurs and peripheral pulses 2+ throughout Cardio Narrative: A-fib, rate controlled. GI normal to inspection, nondistended, normoactive bowel sounds, soft to palpation, non-tender and non-distended Back/Spine normal ROM Extremity Extremity Narrative: +1-2 lower extremity pitting edema, improved. Nahid wraps in place. Neuro moves all extremities and no focal motor deficits Psych mental status grossly normal Psych Narrative: Flat affect. Weight / BMI Weight Weight: 77.6 kg Body Mass Index (BMI) 31.4 ABG / Lab / Microbiology Data 06/23/24 05:00 06/25/24 07:51 Laboratory: Laboratory Results - last 24 hr 06/24/24 12:44: Sodium 133 L, Potassium 5.4 H, Chloride 94 L, Carbon Dioxide 36.0 H, Anion Gap 3 L, BUN 47 H, Creatinine 1.21, Estim Creat Clear Calc 40.71, Est GFR (MDRD) Af Amer 74, Est GFR (MDRD) Non-Af 61, BUN/Creatinine Ratio 38.8 H, Glucose 167 H, Calcium 8.6 06/25/24 07:51: Sodium 132 L, Potassium 5.4 H, Chloride 96 L, Carbon Dioxide 39.0 H, Anion Gap -2 L, BUN 50 H, Creatinine 1.07, Estim Creat Clear Calc 46.18, Est GFR (MDRD) Af Amer 85, Est GFR (MDRD) Non-Af 70, BUN/Creatinine Ratio 46.7 H, Glucose 101, Calcium 8.6 D/C Instructions DC O2, CPAP, BIPAP Needs Additional Home O2 Discharge instructions: No DC home with Oxygen: No Meaningful Use Info Meaningful Use Meaningful Use Diagnoses (Choose all that apply): CHF CHF NAHID/ARB ordered at discharge?: No Reason NAHID/ARB not ordered?: Hypotension Documented LVEF (%): 25 Ischemic Stroke Statin Dosing Therapy Reference: STATIN DOSE THERAPY REFERENCE: * Patients > 75 years receive moderate or high dose statin therapy. * Patients 75 years or YOUNGER should receive HIGH intensity statin dose unless contraindicated. You will be required to document reason for non-treatment if statin daily dose does not meet guidelines. HIGH DOSE STATIN THERAPY DAILY Atorvastatin > than or = to 40 mg Rosuvastatin > than or = to 20 mg Amlodipine + Atorvastatin > than or = to 2.5/40 mg Ezetimibe + Simvastatin 10/80 mg Simvastatin 80mg Discharge Plan Admission Admit Date/Time: 06/21/24 16:11 Primary Reason for Your Visit: Worsening shortness of breath and leg swelling Attending Provider: Gigi Sebastian Primary Care Provider: Handy Beltran Consulting Providers: Gigi Sebastian; James Cormier Instructions Additional Instructions / Restrictions: Medication changes: ? Take Coreg 3.125 mg twice daily, which is half your previous dose ? Take torsemide 20 mg twice daily, which is half your previous dose ? Take potassium 20 mEq daily. Please do not start taking this again until 06/28. ? Stop taking Jardiance and metolazone. ? Follow-up with your client services vice president in the next 1 to 2 weeks. Discharge Orders/Prescriptions Prescriptions: New carvedilol [Coreg] 3.125 mg tablet 3.125 mg PO BID 30 Days Qty: 60 2RF Rx Instructions: must administer with a meal/food potassium chloride 20 mEq tablet extended release 20 meq PO DAILY 30 Days Qty: 30 0RF torsemide 20 mg tablet 20 mg PO BID 30 Days Qty: 60 0RF Continued cholecalciferol (vitamin D3) 125 mcg (5,000 unit) tablet 125 mcg PO DAILY clonazepam [Klonopin] 0.5 MG tablet 0.5 mg PO TID Patient Comments: ANXIETY aspirin 81 MG tablet 81 mg PO QHS Patient Comments: HEART ascorbic acid (vitamin C) 500 MG tablet 1,000 mg PO DAILY@0800 Patient Comments: SUPPLEMENT PreserVision AREDS-2 250-90-40-1 mg Capsule 1 tab PO BID albuterol sulfate 90 mcg/actuation HFA aerosol inhaler 2 puff inhalation Q4H PRN PRN (Reason: wheezing) atorvastatin 10 mg tablet 10 mg PO QHS Qty: 90 3RF tamsulosin 0.4 mg capsule 0.4 mg PO QHS warfarin 2 mg tablet 2 mg PO .COMPLEX Qty: 90 4RF Protocol: Dose Management Condition: Wednesday Dose/Route: 2 mg Instruction: 1 x 2 mg tablet Condition: Wednesday Dose/Route: 2 mg Instruction: 1 x 2 mg tablet Condition: Wednesday Dose/Route: 2 mg Instruction: 1 x 2 mg tablet Condition: Wednesday Dose/Route: 2 mg Instruction: 1 x 2 mg tablet Condition: Dose/Route: 2 mg Instruction: 1 x 2 mg tablet Condition: Wednesday Dose/Route: 2 mg Instruction: 1 x 2 mg tablet Condition: Wednesday Dose/Route: 2 mg Instruction: 1 x 2 mg tablet Protocol Text: Adjustment Start Date: Wednesday06/19/24 INR Value: 3.1 INR Date: 06/18/24 Recheck Date: 06/26/24 Patient Comments: Pt states he takes Wednesday, Wednesday, , Wednesday & Wednesday Rx Instructions: 2 mg orally daily Wed-Wed and 3mg Wed and Sundays; or use as directed; isosorbide mononitrate 30 mg tablet extended release 24 hr 30 mg PO DAILY Qty: 90 3RF warfarin 3 mg tablet 3 mg PO 4XW Qty: 60 3RF Protocol: Dose Management Condition: Wednesday Dose/Route: 2 mg Instruction: 1 x 2 mg tablet Condition: Wednesday Dose/Route: 2 mg Instruction: 1 x 2 mg tablet Condition: Wednesday Dose/Route: 2 mg Instruction: 1 x 2 mg tablet Condition: Wednesday Dose/Route: 2 mg Instruction: 1 x 2 mg tablet Condition: Dose/Route: 2 mg Instruction: 1 x 2 mg tablet Condition: Wednesday Dose/Route: 2 mg Instruction: 1 x 2 mg tablet Condition: Wednesday Dose/Route: 2 mg Instruction: 1 x 2 mg tablet Protocol Text: Adjustment Start Date: Wednesday06/19/24 INR Value: 3.1 INR Date: 06/18/24 Recheck Date: 06/26/24 Patient Comments: Pt takes Wednesday, Wednesday, Wednesday Rx Instructions: Use as directed hydralazine 10 mg tablet 10 mg PO TID 90 Days Qty: 270 3RF Changed guaifenesin [Mucinex] 600 mg tablet extended release 12hr 600 mg PO BID PRN (Reason: congestion) 30 Days Qty: 0 0RF Discontinued potassium chloride 20 mEq tablet extended release 40 meq PO BID carvedilol 6.25 mg Tablet 6.25 mg PO BIDCM 30 Days Qty: 60 0RF metolazone 2.5 mg tablet 2.5 mg PO .COMPLEX Qty: 15 3RF Rx Instructions: 2.5 mg orally 05/03 and 05/04 Thirty minutes before first am Torsemide, then once weekly.; Jardiance 10 mg tablet 10 mg PO DAILY Qty: 30 11RF torsemide 20 mg tablet 20 mg PO .COMPLEX Qty: 360 3RF Rx Instructions: 20 mg orally 2 tablets (40mg) twice a day for end stage CHF: pt is OUT; Referrals / Follow Up: Handy Beltran DO [Primary Care Provider] - Dutch Castro MD [Med Staff - Active Staff] - Disposition Disposition (needs filled in before D/C Order can be placed): Assisted Living Charges/Coding Visit Charges Inpatient E&M: 20283 Disch Hosp >30min
[2024-06-25] MEDS: Dextrose 10%-Water 250 ML 999 ML IV (11:39)
[2024-06-25] MEDS: Insulin Lispro 10 UNIT in Syringe 0 ML 6 UNIT IV (11:39)
--- NOTE | 2024-06-25 12:26 | NURSING ---
I spoke to Cynthia with [facility] to inform her that the pt will be d/c today.
== END 2024-06-25 13:49 | disposition home or self-care (01) | DRG 291 ==
LOC: ED 16:16 → ICU 17:00 → PCU 06-23 16:21
PROVIDERS: Family Medicine; Admitting Provider Hospitalist; Emergency Provider Surgery; PCP Student in an Organized Health Care Education/Training Program; Visit Provider Hospitalist
DX: I13.0 Hypertensive heart and chronic kidney disease with heart failure and stage 1 through stage 4 chronic kidney disease, or unspecified chronic kidney disease (principal); J96.21 Acute and chronic respiratory failure with hypoxia; J90 Pleural effusion, not elsewhere classified; L97.919 Non-pressure chronic ulcer of unspecified part of right lower leg with unspecified severity; I50.42 Chronic combined systolic (congestive) and diastolic (congestive) heart failure; I48.11 Longstanding persistent atrial fibrillation; L97.929 Non-pressure chronic ulcer of unspecified part of left lower leg with unspecified severity; N13.8 Other obstructive and reflux uropathy; L89.152 Pressure ulcer of sacral region, stage 2; D69.6 Thrombocytopenia, unspecified; N18.31 Chronic kidney disease, stage 3a; D64.9 Anemia, unspecified; Z68.34 Body mass index [BMI] 34.0-34.9, adult; E78.5 Hyperlipidemia, unspecified; I87.2 Venous insufficiency (chronic) (peripheral); I25.10 Atherosclerotic heart disease of native coronary artery without angina pectoris; F41.9 Anxiety disorder, unspecified; E87.5 Hyperkalemia; I25.2 Old myocardial infarction; Z79.01 Long term (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 of 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; Z79.82 Long term (current) use of aspirin; E66.811 Obesity, class 1; R22.43 Localized swelling, mass and lump, lower limb, bilateral; Z95.5 Presence of coronary angioplasty implant and graft; R53.81 Other malaise; N40.1 Benign prostatic hyperplasia with lower urinary tract symptoms; Z85.038 Personal history of other malignant neoplasm of large intestine; Z86.73 Personal history of transient ischemic attack (TIA), and cerebral infarction without residual deficits; Z79.899 Other long term (current) drug therapy; Z95.810 Presence of automatic (implantable) cardiac defibrillator; Z96.651 Presence of right artificial knee joint; Z96.642 Presence of left artificial hip joint; Z90.49 Acquired absence of other specified parts of digestive tract
CPT/HCPCS: 29580; 32555; 36415; 71045; 71046; 80048; 80053; 80076; 81001; 82945; 83615; 83880; 84157; 84484; 85025; 85027; 85610; 88108; 88305; 88312; 88313; 88341; 88342; 89050; 93005; 94668; 97110; 97162; 97166; 97530; 97535; 97802; 99214; 99285; J7030; A4216; G0463; J1940

== ENCOUNTER 2024-06-30 17:26 | Inpatient (IN) | payer MEDICARE, SELFPAY ==
[2024-06-30 19:30] VITALS: BP 91/49; PULSE 79; RESP 18; TEMP 35.4; O2SAT 98
--- NOTE | 2024-06-30 19:41 | PCM.HP.STD ---
HPI - General General Date of Admission: 06/30/24 Date of Service: 06/30/24 Chief Complaint: Dyspnea, increased O2 needs, worsening LE swelling, orthopnea, weight gain. HPI Narrative The patient is an 84 y/o M w/ PMHx: Persistent AF, Hx Colon CA, HTN,HLD, HFrEF/Ischemic cardiomyopathy s/p AICD, Hx LV mural thrombus on coumadin, Hx CVA, CAD s/p PCI and CABG, CKD stage IIIa, Chronic venous stasis disease w/ stasis ulcers, Stage II sacral ulcer, recently discharged 06/25/24 following evaluation and treatment of acute HFrEF exacerbation treated with lasix drip, L sided thoracentesis with removal of 1430 ml of serosanguineous fluid who presents to the [facility] as a direct admission on 06/30/24 with initial presentation at [facility] on 06/30/24 with history from SNF with concern for increased lower extremity edema, on torsemide, had stasis blisters and weeping, 3-4+ BL pitting edema with weight gain, orthopnea, more dyspneic and BL LE discomfort. Work-up in the OSH ED included VS: AF, BP 100/57 but did transiently decrease to SBP in the 80s, HR 78, 94% on 4L NC (2.5 baseline), RR 14. CBC: WBC 7.5, Hgb 11.9, Plts 154 with mild L shift BMP: Na 134, K 5.3, Chl 95, CO2 35.7, BUN/Cr 73/1.51, glucose 95, not marked appearing hepatic profile aside alk phos 151 Troponin: 16.8 EKG: SR with RBBB, nospecific changes BNP: 31,619 CXR with BL small to moderate effusions on CXR, R larger than L In the ED patient administered IVFs 500 cc x 1 which was directed per Dr. Farley. Upon arrival at [facility] he does report feeling less dyspneic since his initial transition from SNF to OSH ED. Discussed his current status also and plan of care as well as code status with his family. [facility] Medical History Pressure ulcer of sacral region, stage 2 Venous stasis ulcer Wallenberg syndrome Nonrheumatic mitral (valve) insufficiency History of non-ST elevation myocardial infarction (NSTEMI) (05/27/21) halfway (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 of 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 Longstanding persistent atrial fibrillation Personal history of colon cancer, stage III Hyperlipidemia Venous stasis ulcer Venous stasis dermatitis Edema of both legs Localized swelling of both lower legs Frailty Old age Debility History of colon cancer, stage III Atrial flutter Hypoxia Acute on chronic systolic CHF (congestive heart failure), NYHA class 4 Ventricular tachycardia, incessant Essential hypertension Ischemic cardiomyopathy Atherosclerotic heart disease of [place] coronary artery without angina 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 (congestive heart failure) History of chronic CHF Pneumonia Ventricular tachycardia (paroxysmal) Nonrheumatic mitral (valve) insufficiency Anxiety Atherosclerosis of coronary artery bypass graft of [place] heart with angina pectoris LV (left ventricular) mural thrombus Wears glasses History of steroid therapy Arthritis Kidney stone Back pain Stroke/cerebrovascular accident History of hiatal hernia Non-smoker History of pain when walking Osteoarthritis Atrial fibrillation Personal history of colonic polyps Colon cancer History of stroke Home Medications ?Medication ?Instructions ?Recorded ?Last Taken ?Type clonazepam 0.5 mg tablet (Klonopin) 0.5 mg PO TID anxiety 08/11/13 12/07/22 History ascorbic acid (vitamin C) 500 mg 1,000 mg PO DAILY@0800 supplement 07/11/15 05/22/24 History tablet aspirin 81 mg tablet,delayed [address] [facility] [place] 07/11/15 05/22/24 20:00 History release vit C 250 mg-vit E 90 mg-zinc 40 1 tab PO BID eye vitamin 02/24/21 05/22/24 History mg-copper 1 [id number] capsule (PreserVision AREDS-2) cholecalciferol (vitamin D3) 125 125 mcg PO DAILY supplement 03/05/23 05/22/24 History mcg (5,000 unit) tablet atorvastatin 10 mg tablet 10 mg PO QHS cholesterol #90 tabs 09/06/23 Unknown Rx tamsulosin 0.4 mg capsule 0.4 mg PO QHS Prostate 10/13/23 Unknown History warfarin 2 mg tablet 2 mg PO .COMPLEX blood thinner #90 02/17/24 Unknown Rx TABLETS isosorbide mononitrate 30 mg 30 mg PO DAILY heart health #90 05/09/24 Unknown Rx tablet,extended release 24 hr tabs warfarin 3 mg tablet 3 mg PO 4XW blood thinner #60 tabs 05/22/24 Unknown Rx albuterol sulfate 90 mcg/actuation 2 puff inhalation Q4H PRN PRN 05/23/24 Unknown History aerosol inhaler wheezing hydralazine 10 mg tablet 10 mg PO TID blood pressure 90 06/19/24 Unknown Rx days #270 tabs carvedilol 3.125 mg tablet (Coreg) 3.125 mg PO BID 30 days #60 tabs 06/25/24 Unknown Rx guaifenesin 600 mg tablet, 600 mg PO BID PRN congestion 30 06/25/24 Unknown Rx extended release 12 hr (Mucinex) days #0 tabs potassium chloride 20 mEq 20 meq PO DAILY 30 days #30 tabs 06/25/24 Unknown Rx tablet,extended release torsemide 20 mg tablet 20 mg PO BID 30 days #60 tabs 06/25/24 Unknown Rx Allergy/AdvReac Type Severity Reaction Status Date / Time amiodarone AdvReac Severe Severe Verified 06/21/24 11:01 urinary retention requiring catheter NAHID Inhibitors AdvReac Other Verified 06/21/24 11:01 hydrochlorothiazide AdvReac Other Verified 06/21/24 11:01 levofloxacin (From Levaquin) AdvReac aching Verified 06/21/24 11:01 legs trouble walking spironolactone AdvReac Other Verified 06/21/24 11:01 Family History Father Hypertension Heart disease Mother Vascular disease, peripheral Surgical History History of coronary artery stent placement (05/27/21) History of implantable cardiac defibrillator (ICD) (02/10/17) H/O coronary artery bypass surgery (08/27/05) History of left heart catheterization History of ankle fusion History of right knee joint replacement History of colonoscopy (2016) History of left hip replacement History of cholecystectomy Hx of cataract surgery History of colon surgery Social History household members: spouse housing: long term Smoking Status: Never smoker alcohol intake: never substance use type: does not use caffeine: Yes Type: coffee Number of servings: 1 ROS ROS Narrative Admission Review of Systems: CONSTITUTIONAL: No weight loss, fever, chills, + weakness, fatigue, weight gain. HEENT: Eyes: No visual loss, blurred vision, double vision or yellow sclerae. Ears, Nose, Throat: No hearing loss, sneezing, congestion, runny nose or sore throat. SKIN: No rash or itching, lesions except + significant bilateral lower extremity venous stasis skin changes with stasis ulceration/blisters, stage II decubitus ulcer. CARDIOVASCULAR: Weight gain, orthopnea, increasing lower extremity swelling. + No chest pain, chest pressure or chest discomfort, palpitations, syncopal events. RESPIRATORY: + Increasing dyspnea, worse with exertion, occasional coughing. No marked productive sputum, wheezing, hemoptysis. GASTROINTESTINAL: No anorexia, nausea, vomiting or diarrhea, abdominal pain, melena, BRBPR. GENITOURINARY: + History of BPH with urinary frequency. No dysuria, urgency or retention. NEUROLOGICAL: No headache, dizziness, syncope, paralysis, ataxia, numbness or tingling in the extremities, focal weakness, change in bowel or bladder control, seizure. MUSCULOSKELETAL: + muscle, back pain, joint pain or stiffness. HEMATOLOGIC: + Chronic anemia, easy bleeding/bruising. LYMPHATICS: No enlarged nodes. No history of splenectomy. PSYCHIATRIC: + History of anxiety. ENDOCRINOLOGIC: No reports of sweating, cold or heat intolerance. No polyuria or polydipsia. ALLERGIES: No history of asthma, hives, eczema or rhinitis. Physical Exam Narrative Physical Examination: General: Awake, alert, oriented x 3 and cooperative, seated upright in PCU bed in no apparent distress, notes feeling improved since initial outside facility ED evaluation. Skin: Normal color, normal turgor, no icterus, no cyanosis except for occasional stage ecchymoses, abrasion, notable anterior bay stasis blisters with significant serous drainage as well as posterior stage II decubitus ulcer. HEENT: AT/NC, EOMI, PERRLA, MMM, no carotid bruits, + JVD noted. Lungs: Diminished, greater bases, currently appropriate rate and effort, very mild distant rales, no rhonchi or wheezing, on supplemental oxygen. Heart: Irregular; no gallop, rub audible. Abdomen: Soft, NTTP, ND, mildly hyperactive BS, no appreciated HSM. Extremities: No cyanosis, no clubbing, significant pedal to knee 3-4+ pitting edema, see skin Neurological: Patient awake, alert, oriented as noted, cognitive function intact; pupils equally reactive to light and accommodation, cranial nerves grossly normal except status post previous CVA with chronic residual mild L hemiplegia, strength severely global decreased secondary to acute presentation and underlying comorbidities. Psychiatric: Affect appears fatigued otherwise normal, no acute evidence of depressive or anxiety feelings. Assessment & Plan Assessment/Plan (1) Acute exacerbation of chronic heart failure: PLAN: Plan The patient is an 84 y/o M w/ PMHx: Persistent AF, Hx Colon CA, HTN,HLD, HFrEF/Ischemic cardiomyopathy s/p AICD, Hx LV mural thrombus on coumadin, Hx CVA, CAD s/p PCI and CABG, CKD stage IIIa, Chronic venous stasis disease w/ stasis ulcers, Stage II sacral ulcer, recently discharged 06/25/24 following evaluation and treatment of acute HFrEF exacerbation treated with lasix drip, L sided thoracentesis with removal of 1430 ml of serosanguineous fluid who presents to the [facility] as a direct admission on 06/30/24 with initial presentation to [facility] on 06/30/24 with history from SNF with concern for increased lower extremity edema, on torsemide, had stasis blisters and weeping, 3-4+ BL pitting edema with weight gain, orthopnea, more dyspneic and BL LE discomfort. #1. Acute Hypoxia on Chronic Hypoxic Respiratory Failure secondary to Acutely Decompensated HFrEF exacerbation/ischemic cardiomyopathy: CXR obtained in the ED at outside facility with evidence of overload with small to moderate effusions but not severe, larger on the right with previous thoracentesis on the left recently during previous admission. Patient was transiently hypotensive in the outside ED therefore he was administered 500 cc of IV fluids per cardiology direction. BP improved, will admit to PCU, will maintain on telemetry monitoring, will cycle cardiac enzymes, we will repeat EKGs as needed, monitor I/Os, maintain on intake restriction, will initiate diuresis as BP allows however will defer to cardiology preference, continue medical therapy, obtain TSH and magnesium level. Most recent ECHO noted 04/05/2024 with EF 25%, stage II diastolic dysfunction, severe global hypokinesis LV, left and right atrium mildly enlarged, moderate MVI. Cardiology consulted, pending. Will place neck Nahid wraps with lower extremity elevation. Interrogation requested. #2. Acute Elevated Creatinine/Acute Renal Insufficiency on Chronic Kidney Disease Stage IIIa Per prior records/GFR trending: Likely secondary to acute presentation as noted above, admission BUN/Cr 73/1.51 per outside facility, baseline renal function previously primarily 1-1.3 this mildly elevated, repeat BMP in AM. #3. CAD: Status post CABG and PCI, continue aspirin, statin, given low BP as noted at outside facility although improved with judicious fluids will temporarily hold Coreg, isosorbide, hydralazine and prioritize diuresis, add back regimen as able. #4. Chronic macrocytic anemia: Admission hemoglobin 11.9 from outside facility, baseline previous records range 10-11 primarily, MCV primarily in the upper 90 range consistent with macrocytic anemia, will continue to trend CBC. #5. Persistent A-fib on Coumadin: Rate controlled, will obtain INR upon presentation is not obtained at outside facility, will continue Coumadin with adjustments as needed pending these levels, given hypotension at outside facility although improved currently will prioritize diuresis with IV Lasix, temporally holding low-dose Coreg as well as isosorbide and hydralazine, add back once appropriate. #6. Hypertension: As noted at outside facility patient transiently with low BP, improved with very judicious fluids per cardiology direction, will temporarily hold isosorbide, hydralazine and Coreg regimen with prioritization of diuresis as noted, add back this other regimen as able. #7. Hyperlipidemia: Continue home statin regimen. AM FLP. #8. History LV mural thrombus: Will continue Coumadin, INR requested upon admission as not done at outside facility, will continue to trend. #9. History CVA: Patient with mild residual mild L hemiplegia, will continue aspirin, Coumadin with INR trending as noted, continue statin therapy, temporally altering hypertensive regimen as noted given outside facility transiently decreased blood pressure. Restart regimen once clinically appropriate and prioritization is noted of diuresis. #10. Chronic venous stasis disease with stasis ulcerations: We will continue routine skin care, nonadherent with 4 x 4/ABD/Kerlix with snug nahid wraps with elevation pending wound care evaluation, continue diuresis as noted above as BP allows. #11. Chronic stage II sacral decubitus ulcer: Encourage offloading, positional changes, wound RN evaluation requested as noted, routine skin care/barrier care. #12. Obesity: Weight loss and lifestyle changes encouraged. #13. Anxiety: We will continue patient low-dose clonazepam regimen, hold for sedation. #14. History colon cancer: s/p sigmoid resection and chemotherapy, considered currently in remission, encourage continued follow-up outpatient as previously arranged. #15. BPH with obstructive pathology: We will continue patient home Flomax regimen, walsh placed given lasix drip as noted, transition back to self catheterization regimen once d/c. #16. DVT prophylaxis: Will request INR upon admission as patient is on chronic Coumadin therapy and will continue to trend. #17. CODE status: Patient MARNIE is his and secondary his son Dipesh; however he notes that his has dementia thus his son is currently his primary decision maker and living will is he believes in place also. Discussed CODE status at length including difference between FULL code, DNR-CCA and DNR-CC status. Following discussions about the differences in these status, requested Full code status. Discussed his advanced age and poor prognosis should some type of cardiopulmonary event occur and he understands. Advanced Care Planning Face to Face Time: 16 minutes. Charges/Coding Visit Charges Inpatient E&M: 87724 Init Hosp L3 Procedures Hospitalists Procedures: 59139 Advncd Care Plan 30 Min
[2024-06-30 19:42] VITALS: BP 90/59; PULSE 66; RESP 20; TEMP 36.6; O2SAT 95
[2024-06-30 19:51] VITALS: BMI 30.3
[2024-06-30] MEDS: Furosemide 500 MG in Empty Viaflex 50 mL 1 EACH CONT INF (20:18)
[2024-06-30] MEDS: Tamsulosin HCl 0.4 MG Capsule PO (20:18)
[2024-06-30] MEDS: clonazePAM 0.5 MG Tablet PO (20:18)
[2024-06-30] MEDS: Atorvastatin Calcium 10 MG Tablet PO (20:19)
[2024-06-30] MEDS: Aspirin E.C. 81 MG Tablet PO (20:19)
[2024-06-30 20:22] LABS: International Normalized Ratio 1.5; Prothrombin Time (Protime)PT. 18.4 SECONDS (11.7-14.9)
[2024-06-30 20:37] LABS: Troponin-I HS 20 pg/mL (3.0-78.0)
[2024-06-30 22:00] VITALS: BP 99/62; PULSE 77; RESP 23; O2SAT 99
[2024-06-30 23:23] LABS: Troponin-I HS 22 pg/mL (3.0-78.0)
[2024-07-01] VITALS (16 sets, daily range): BP systolic 89–104; BP diastolic 41–69; PULSE 68–89; RESP 12–23; TEMP 35.8–36.7; O2SAT 92–100
[2024-07-01] MEDS: Acetaminophen 325 MG Tablet 650 MG PO ×5 (01:01→21:57)
[2024-07-01 02:44] LABS: Troponin-I HS 22 pg/mL (3.0-78.0)
[2024-07-01] MEDS: Morphine 2 MG/ML Syringe IV (03:27)
[2024-07-01] MEDS: clonazePAM 0.5 MG Tablet PO ×3 (04:55→21:52)
--- NOTE | 2024-07-01 05:55 | EKG12_ITS ---
Test Reason : ARRYTHMIA Blood Pressure : */* mmHG Vent. Rate : 78 BPM Atrial Rate : 78 BPM P-R Int : 128 ms QRS Dur : 180 ms QT Int : 438 ms P-R-T Axes : 59 111 9 degrees QTcB Int : 499 ms Critical Test Result: STEMI Sinus rhythm with Premature supraventricular complexes and with occasional Premature ventricular comp lexes Right bundle branch block Septal infarct (cited on or before 21-Jun-2024) Lateral injury pattern Confirmed by MIRTHA RAO, RAE ([id number]), sports editor BARNEY TOWNSEND ([id number]) on 07/03/2024 8:34:58 AM Referred By: Confirmed By: RAE SHANNON MD
[2024-07-01 07:34] LABS: Absolute Lymphocyte Count 0.32 X10^3/uL (0.83-4.51); Basophil# 0.02 X10^3/uL; Basophil% 0.3 % (0-1); Eosinophil# 0.06 X10^3/uL; Eosinophils% 0.9 % (0-5); Hematocrit 33.6 % (40-54); Hemoglobin 10.5 g/dL (13.0-16.5); Lymphocyte # 0.32 X10^3/ul (0.83-4.51); Lymphocyte % 4.6 % (19-41); Mean Corp Hgb Conc 31.3 g/dL (32-36); Mean Corpuscular Hgb 30.8 pg (27.0-32.0); Mean Corpuscular Volume 98.5 fL (80-94); Mean Platelet Vol. 10.4 fl (6.2-12.0); Monocyte# 0.43 X10^3/uL; Monocyte% 6.2 % (0-10); NRBC Flagged by Analyzer 0 % (0-5); Neutrophil # 6.04 X10^3/uL (2.7-7.7); Neutrophil % 87.4 % (47-70); POSITIVE DIFFERENTIAL YES; Platelet Count 132 K/mm3 (150-450); Red Blood Count 3.41 M/mm3 (4.6-6.2); White Blood Count 6.9 K/mm3 (4.4-11.0)
[2024-07-01 08:06] LABS: ALB/GLOB Ratio 0.8 RATIO (0.9-2.4); AST(SGOT) 24 U/L (15-37); Alanine Aminotransfer ALT/SGPT 37 U/L (16-61); Albumin, Serum 2.5 g/dL (3.2-5.0); Alkaline Phosphatase 130 U/L (45-117); Anion Gap 6 (5-15); BUN 68 mg/dL (7-18); BUN/Creat Ratio 53.1 RATIO (10-20); Calcium,Total 8.4 mg/dL (8.5-10.1); Chloride 93 mmol/L (98-107); Cholesterol 87 mg/dL (200); Creatinine, Serum 1.28 mg/dL (0.70-1.30); EST Glomerular Filtration Rate 57 mL/min (>60); Est Glom Filt Rate - Afr Amer 69 mL/min (>60); Estimated Creatinine Clearance 38.72 ml/min; Glucose 97 mg/dL (74-106); High Density Lipoprotein 49 mg/dL; Magnesium 2.6 mg/dL (1.6-2.6); Potassium 4.2 mmol/L (3.5-5.1); Protein, Total 5.5 g/dL (6.4-8.2); Sodium Level 133 mmol/L (136-145); Triglycerides 49 mg/dL; Very Low Density Lipoprotein 10 mg/dL (5-40)
[2024-07-01 08:09] LABS: International Normalized Ratio 1.6; Prothrombin Time (Protime)PT. 18.9 SECONDS (11.7-14.9)
--- NOTE | 2024-07-01 09:20 | CON.PCM.CA_ITS ---
Assessment & Plan Assessment/Plan (1) Acute exacerbation of chronic heart failure: PLAN: He does have an acute on chronic exacerbation of heart failure. His ejection fraction as you know is approximately 25%. His blood pressure has not really allowed as to titrate up his medications he had been on beta-mert in the past and then also on hydralazine and isosorbide with difficulty maintaining his blood pressure. * At this time I would recommend that we diurese him for 24 hours and then after that try and get him on oral medication. * Is overall prognosis is rather guarded but it appears to me that the family still wants to continue current therapy. (2) H/O coronary artery bypass surgery: PLAN: He is status post coronary bypass surgery. Cardiac catheterization 2022 demonstrated patency of the ARIZMENDI as well as the saphenous vein graft to the obtuse marginal branch. Will continue current medical therapy with cardiac enzymes being normal. (3) Ischemic cardiomyopathy: PLAN: He does have severe ischemic cardiomyopathy. Will continue to optimize medical therapy as noted above. (4) Essential hypertension: PLAN: His blood pressure is actually borderline low at this time and no antihypertensive therapy will be instituted. (5) History of implantable cardiac defibrillator (ICD): PLAN: He is status post implantable defibrillator. He has not had any defibrillator discharges recently to suggest V. tach. Will make sure that his potassium is in the normal range. (6) Longstanding persistent atrial fibrillation: PLAN: He does have longstanding persistent atrial fibrillation with a controlled ventricular response rate. We may try him on p.o. digoxin to help with the heart rate and he will continue with anticoagulation. Thank you for allowing me to participate in the care of your patient. Please don't hesitate to call if any issues arise. HPI Consult Data Date of Consult: 07/01/24 HPI Narrative HPI Narrative: DARRELL PRIETO, is a 84 M who presents to the emergency room in [place] with the family insisting that he be admitted to the hospital in [facility] hence the transfer. He was domiciled in a fci and complained of more pedal edema during the week. He has a history of coronary artery disease status post bypass x5 in 2005 with sequential SVG to intermediate artery, lateral circumflex coronary artery, and posterolateral circumflex coronary artery, SVG to marginal branch of the right coronary artery, and ARIZMENDI to LAD. He underwent a heart catheterization 05/27/2021 that showed patent ARIZMENDI to LAD supplying collaterals to distal RCA as well as diagonal vessel and SVG to obtuse marginal vessel with high-grade stenosis noted at the anastomotic site and port gamble vessel disease. His SVG to RCA was totally occluded. He also had collateral flow from left to left. His echocardiogram at the time showed ejection of 25% and stage II diastolic dysfunction. He was noted to have moderately enlarged left atrium, mildly enlarged right atrium, and moderate mitral insufficiency. He also has a history of ischemic cardiomyopathy, chronic atrial fibrillation, [facility] ICD placement in 2007 with lead and generator change in February 2017, previous LV mural thrombus in Spring/Summer 2020, hypertension, hyperlipidemia, and colon cancer with chemotherapy and surgery ICD report from October of 2023 showed multiple episodes of nonsustained ventricular tachycardia. He proceeded with heart catheterization on 11/17/2022 that showed patent ARIZMENDI to LAD and SVG to obtuse marginal branch. There is noted be collateral flow from the left to right. Medical therapy was recommended. Patient was admitted to [facility] in March 2024 for acute on chronic congestive heart failure. He received IV diuretic therapy. He was started on hydralazine and isosorbide to assist with afterload reduction. It is noted the patient is been tolerant to spironolactone and metolazone. Palliative and hospice care was also reviewed with patient during such admission. It is not clear exactly what decision was undertaken. He was recently seen by my colleague Dr. Castro and had some medication changes including putting him on torsemide. It is not clear whether he is also being wearing his oxygen as required. He denies chest, arm, jaw, or neck discomfort. He states bilateral lower extremity edema. He denies claudication. He has shortness of breath with activity, shortness of breath at rest, orthopnea, or PND. He denies chronic cough. He denies significant, sudden weight gain. He states frequent lightheadedness. He has not had any recent defibrillator discharges. Your member on his previous admission in May he did have defibrillator discharges for incessant ventricular tachycardia secondary to hypokalemia. 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 Longstanding persistent atrial fibrillation Personal history of colon cancer, stage III Hyperlipidemia Venous stasis ulcer Venous stasis dermatitis Edema of both legs Localized swelling of both lower legs Frailty Old age Debility History of colon cancer, stage III Atrial flutter Hypoxia Acute on chronic systolic CHF (congestive heart failure), NYHA class 4 Ventricular tachycardia, incessant Essential hypertension Ischemic cardiomyopathy Atherosclerotic heart disease of port gam[place] coronary artery without angina 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 (congestive heart failure) History of chronic CHF Pneumonia Ventricular tachycardia (paroxysmal) Nonrheumatic mitral (valve) insufficiency Anxiety Atherosclerosis of coronary artery bypass graft of [place] gam[place] heart with angina pectoris LV (left ventricular) mural thrombus Wears glasses History of steroid therapy Arthritis Kidney stone Back pain Stroke/cerebrovascular accident History of hiatal hernia Non-smoker History of pain when walking Osteoarthritis Atrial fibrillation Personal history of colonic polyps Colon cancer History of stroke Home Medications ?Medication ?Instructions ?Recorded ?Last Taken ?Type clonazepam 0.5 mg tablet (Klonopin) 0.5 mg PO TID anxiety 08/11/13 12/07/22 History ascorbic acid (vitamin C) 500 mg 1,000 mg PO DAILY@0800 supplement 07/11/15 05/22/24 History tablet aspirin 81 mg tablet,delayed 81 mg PO QHS heart [facility] 07/11/15 05/22/24 20:00 History release vit C 250 mg-vit E 90 mg-zinc 40 1 tab PO BID eye vitamin 02/24/21 05/22/24 History mg-copper 1 [id number] capsule (PreserVision AREDS-2) cholecalciferol (vitamin D3) 125 125 mcg PO DAILY supplement 03/05/23 05/22/24 History mcg (5,000 unit) tablet atorvastatin 10 mg tablet 10 mg PO QHS cholesterol #90 tabs 09/06/23 Unknown Rx tamsulosin 0.4 mg capsule 0.4 mg PO QHS Prostate 10/13/23 Unknown History warfarin 2 mg tablet 2 mg PO .COMPLEX blood thinner #90 02/17/24 Unknown Rx TABLETS isosorbide mononitrate 30 mg 30 mg PO DAILY heart health #90 05/09/24 Unknown Rx tablet,extended release 24 hr tabs warfarin 3 mg tablet 3 mg PO 4XW blood thinner #60 tabs 05/22/24 Unknown Rx albuterol sulfate 90 mcg/actuation 2 puff inhalation Q4H PRN PRN 05/23/24 Unknown History aerosol inhaler wheezing hydralazine 10 mg tablet 10 mg PO TID blood pressure 90 06/19/24 Unknown Rx days #270 tabs carvedilol 3.125 mg tablet (Coreg) 3.125 mg PO BID 30 days #60 tabs 06/25/24 Unknown Rx guaifenesin 600 mg tablet, 600 mg PO BID PRN congestion 30 06/25/24 Unknown Rx extended release 12 hr (Mucinex) days #0 tabs potassium chloride 20 mEq 20 meq PO DAILY 30 days #30 tabs 06/25/24 Unknown Rx tablet,extended release torsemide 20 mg tablet 20 mg PO BID 30 days #60 tabs 06/25/24 Unknown Rx Allergy/AdvReac Type Severity Reaction Status Date / Time amiodarone AdvReac Severe Severe Verified 06/21/24 11:01 urinary retention requiring catheter KALEIGH Inhibitors AdvReac Other Verified 06/21/24 11:01 hydrochlorothiazide AdvReac Other Verified 06/21/24 11:01 levofloxacin (From Levaquin) AdvReac aching Verified 06/21/24 11:01 legs trouble walking spironolactone AdvReac Other Verified 06/21/24 11:01 Family History Father Hypertension Heart disease Mother Vascular disease, peripheral Surgical History History of coronary artery stent placement (05/27/21) History of implantable cardiac defibrillator (ICD) (02/10/17) H/O coronary artery bypass surgery (08/27/05) History of left heart catheterization History of ankle fusion History of right knee joint replacement History of colonoscopy (2016) History of left hip replacement History of cholecystectomy Hx of cataract surgery History of colon surgery Social History household members: spouse housing: fci Smoking Status: Never smoker alcohol intake: never substance use type: does not use caffeine: Yes Type: coffee Number of servings: 1 ROS Constitutional Constitutional: Denies fever(s) or weight loss Eyes Eyes: Reports systems reviewed and no addt'l complaints, except as documented ENT HEENT: Reports systems reviewed and no addt'l complaints, except as documented Cardiovascular Cardiovascular: Reports palpitations; Denies chest pain at rest, chest pain with activity, dyspnea at rest, dyspnea on exertion, edema or paroxysmal nocturnal dyspnea Respiratory/Chest Respiratory/Chest: Denies dyspnea on exertion, productive cough, shortness of breath at rest or shortness of breath with exertion Gastrointestinal Gastrointestinal: Denies change in bowel habits, nausea, vomiting or weight changes Genitourinary Genitourinary: Denies difficulty urinating Musculoskeletal Musculoskeletal: Denies joint stiffness or muscle weakness Integumentary Integumentary: Denies lesions Neurologic Neurologic: Denies dizziness or syncope Psychiatric Psychiatric: Denies anxiety Endocrine Endocrinology: Denies excessive sweating or fatigue Hematologic/Lymphatic Hematologic/Lymphatic: Denies anemia Allergic/Immunologic Allergic/Immunologic: Denies seasonal rhinorrhea Physical Exam Const alert, oriented x3 and no apparent distress General Appearance: cooperative HEENT hearing grossly normal bilaterally Head and Scalp: atraumatic Eyes EOMs intact bilaterally Neck General: normal visual inspection Chest inspection of chest normal and palpation of chest normal Resp normal respiratory effort Auscultation: clear to auscultation bilaterally Cardio regular rate, regular rhythm, S1 normal heart sound and S2 normal heart sound Jugular Venous Distention: JVD GI normal to inspection, nondistended, normoactive bowel sounds Extremity normal capillary refill General Extremity: edema bilateral Peripheral Pulses: Yes pulses 2+ throughout and femoral pulses present Skin no rashes or lesions noted Skin Narrative: Skin breakdown noted. Tissue wrapped Neuro oriented x3 and CN's II-XII intact bilaterally Psych Appearance: grossly normal and appropriate Risk Stratification Risk Stratification Applicable: No Objective Data Vital Signs: Vital Signs Temp Pulse Resp BP Pulse Ox O2 Del Method O2 Flow Rate 97.1 F L 73 18 102/61 96 Nasal Cannula 2 07/01/24 04:59 07/01/24 04:59 07/01/24 04:59 07/01/24 04:59 07/01/24 04:59 07/01/24 08:32 07/01/24 08:36 Oxygen Flow Rate (L/min) 2 Oxygen Delivery Method Nasal Cannula Weight: 164 lb 7.437 oz Body Mass Index (BMI) 30.0 Intake & Output: Intake and Output for Last 24 Hours 06/29/24 06/30/24 07/01/24 23:59 23:59 23:59 Intake Total 394.83 / 394.83 Output Total 900 / 900 Balance -505.17 / -505.17 Lab / Micro Data 07/01/24 07:15 07/01/24 07:15 Labs: Laboratory Results - last 24 hr 06/30/24 19:46: PT 18.4 H, INR 1.5, Troponin I High Sens 20 06/30/24 22:53: Troponin I High Sens 22 07/01/24 02:10: Troponin I High Sens 22 07/01/24 07:15: WBC 6.9, RBC 3.41 L, Hgb 10.5 L, Hct 33.6 L, MCV 98.5 H, MCH 30.8, MCHC 31.3 L, RDW Std Deviation 65.0 H, RDW Coeff of Abdirahman 18.0 H, Plt Count 132 L, MPV 10.4, Immature Gran % (Auto) 0.600, Neut % (Auto) 87.4 H, Lymph % (Auto) 4.6 L, [place] % (Auto) 6.2, Eos % (Auto) 0.9, Baso % (Auto) 0.3, Absolute Neuts (auto) 6.0, Absolute Lymphs (auto) 0.32 L, Nucleated RBC % 0, PT 18.9 H, INR 1.6, Sodium 133 L, Potassium 4.2, Chloride 93 L, Carbon Dioxide 34.0 H, Anion Gap 6, BUN 68 H, Creatinine 1.28, Estim Creat Clear Calc 38.72, Est GFR (MDRD) Af Amer 69, Est GFR (MDRD) Non-Af 57 L, BUN/Creatinine Ratio 53.1 H, Glucose 97, Calcium 8.4 L, Magnesium 2.6, Total Bilirubin 0.80, AST 24, ALT 37, Alkaline Phosphatase 130 H, Total Protein 5.5 L, Albumin 2.5 L, Globulin 3.0, A lbumin/Globulin Ratio 0.8 L, Triglycerides 49, Cholesterol 87, LDL Cholesterol 28, VLDL Cholesterol 10, HDL Cholesterol 49, TSH 1.540 Cardiology Labs/Tests 06/30/24 19:46: PT 18.4 H, INR 1.5 07/01/24 07:15: WBC 6.9, RBC 3.41 L, Hgb 10.5 L, Hct 33.6 L, MCV 98.5 H, MCH 30.8, MCHC 31.3 L, Plt Count 132 L, MPV 10.4, Immature Gran % (Auto) 0.600, Neut % (Auto) 87.4 H, Lymph % (Auto) 4.6 L, [place] % (Auto) 6.2, Eos % (Auto) 0.9, Baso % (Auto) 0.3, Absolute Neuts (auto) 6.0, Nucleated RBC % 0, PT 18.9 H, INR 1.6, Sodium 133 L, Potassium 4.2, Chloride 93 L, Carbon Dioxide 34.0 H, Anion Gap 6, BUN 68 H, Creatinine 1.28, Est GFR (MDRD) Af Amer 69, Est GFR (MDRD) Non-Af 57 L , BUN/Creatinine Ratio 53.1 H, Glucose 97, Calcium 8.4 L, Magnesium 2.6, Total Bilirubin 0.80, Triglycerides 49, Cholesterol 87, LDL Cholesterol 28, VLDL Cholesterol 10, HDL Cholesterol 49 Rhythm: EKG: ECHO: Stress Test: Cardiac Cath: PCI: CT Surgery: Holter monitor: EPS: PPM: CXR: Chest CT Scan:
[2024-07-01] MEDS: Potassium Chloride Oral Tablet 20 MEQ PO (09:35)
--- NOTE | 2024-07-01 09:48 | CASEMGMT ---
SONU MORENO Readmission Note Previous Admission: 06/21/24-06/25/24 Diagnosis:Acute HFREF DC Disposition: [facility] with [facility] for SN, PT and OT Current Admission: Admitted 06/30/24 Current Diagnosis: acute on chronic hypoxia, HF exac Previous admission pt was on lasix drip, had L thora and dc'd to [place]. SONU MORENO into pt room. Pt states his stay at [place] has been a challenge. He states it is a change for him. He states that [facility] nurse was out yesterday but he has not seen therapy. He states his wound is a 3 and he can't have that at the [place] so he was taken to [facility] and then trf'd here to [facility]. Pt states that [place] is administering his medications, but he isn't sure they were quite right. He is using his oxygen and has a portable tank family can bring in for dc. Pt states that his who has dementia was helping him to the bathroom but there were times that he could not get out of the chair and had to call for help. Pt would like to return to [place] because that is where his is, but doesn't know if he is able. Pt aware that SONU MORENO and ALLEN will follow how he does through this stay, with therapy and see what his needs are. Pt agreeable to this. Updated ALLEN. DC Plan: TBD pending therapy evals and course of hospitalization
[2024-07-01] MEDS: Digoxin 125 MCG Tablet PO (12:04)
--- NOTE | 2024-07-01 13:08 | CASEMGMT ---
Physician asked if Hospice could talk with family today after the hospice nurse finishes with another family at 2p. ALLEN called [facility] and spoke with Lucrecia regarding referral. ALLEN asked if the hospice nurse that is coming to [facility] at 2p for another patient could talk with family afterwards. Lucrecia said she could ask the RN and if not they would call patient's son David. SW went to patient's room. There were many family members present. ALLEN introduced self and role at [facility]. Family confirmed they would like to talk with [facility]. ALLEN explained Hospice is going to try and have the nurse stop down and talk with them after another meeting at [facility]. However, if that does not work out Hospice will call David. Family asked that patient's son Ananda be called since he is the Healthcare Power of [employer] Supervisor. ALLEN let them know SW will call Hospice and notify them of the change in contact center engineer. ALLEN called Hospice and spoke with Marlene. ALLEN told Marlene they would need to call patient's son Ananda no David. Raquel Mahmood YARDER ENGINEER RUSSELL
--- NOTE | 2024-07-01 13:46 | CASEMGMT ---
ALLEN received a call from Lucrecia with [facility] and they will not be able to meet with patient and family until tomorrow at 8a. Lucrecia said she spoke with patient's son Ananda and he is in agreement with this time. ALLEN notified physician. ALLEN will notify RN. Plan: Meet with [facility] at 8a Wednesday-. Raquel WELLS
--- NOTE | 2024-07-01 14:32 | CASEMGMT ---
ALLEN sent updates to Joie WEBER in [place] via [employer]. Raquel Mahmood KNOWLEDGE MANAGEMENT ADVISOR RUSSELL
--- NOTE | 2024-07-01 15:28 | PN.HOSP_ITS ---
Reason for Visit Reason for Visit: Diagnoses Heart failure, unspecified (06/30/24) Subjective Subjective Saw patient at bedside this morning. Patient was sitting in bedside chair comfortably, in no acute distress. Was breathing comfortably on 2 L nasal cannula. Does appear overtly volume overloaded in his legs and has crackles bilaterally on lung auscultation. He denied any acute pain or discomfort at rest. Saw patient again at bedside this afternoon and several family members were at bedside for goals of care discussion. This included 4 of the patient's 5 sons along with other family members. I discussed with them that we are continuing patient's Lasix drip and tolerating a lower blood pressure with this. However, given how quickly he became volume overloaded after recent discharge last Wednesday, patient is end-stage heart failure. Strongly suspect he will continue to have recurrent hospitalizations like this moving forward. Patient has capacity and would like to discuss moving forward with hospice care. Patient agreeable to changing CODE STATUS to DNR CCA, DNI and hospice consulted. Plan is for hospice meeting with family tomorrow morning. Objective Data Objective Data Vital Signs: Vital Signs Temp Pulse Resp BP Pulse Ox O2 Del Method O2 Flow Rate 97.1 F L 72 18 97/52 L 96 Nasal Cannula 2 07/01/24 04:59 07/01/24 12:04 07/01/24 04:59 07/01/24 12:04 07/01/24 04:59 07/01/24 08:32 07/01/24 08:36 Oxygen Flow Rate (L/min) 2 Oxygen Delivery Method Nasal Cannula Weight: 74.6 kg Body Mass Index (BMI) 30.0 Intake & Output: Intake and Output for Last 24 Hours 06/29/24 06/30/24 07/01/24 23:59 23:59 23:59 Intake Total 394.83 / 394.83 Output Total 900 / 900 Balance -505.17 / -505.17 Lab / Micro Data 07/01/24 07:15 07/01/24 07:15 Labs: Laboratory Results - last 24 hr 06/30/24 19:46: PT 18.4 H, INR 1.5, Troponin I High Sens 06/30/24 22:53: Troponin I High Sens 07/01/24 02:10: Troponin I High Sens 07/01/24 07:15: WBC 6.9, RBC 3.41 L, Hgb 10.5 L, Hct 33.6 L, MCV 98.5 H, MCH 30.8, MCHC 31.3 L, RDW Std Deviation 65.0 H, RDW Coeff of Abdirahman 18.0 H, Plt Count 132 L, MPV 10.4, Immature Gran % (Auto) 0.600, Neut % (Auto) 87.4 H, Lymph % (Auto) 4.6 L, [place] % (Auto) 6.2, Eos % (Auto) 0.9, Baso % (Auto) 0.3, Absolute Neuts (auto) 6.0, Absolute Lymphs (auto) 0.32 L, Nucleated RBC % 0, PT 18.9 H, INR 1.6, Sodium 133 L, Potassium 4.2, Chloride 93 L, Carbon Dioxide 34.0 H, Anion Gap 6, BUN 68 H, Creatinine 1.28, Estim Creat Clear Calc 38.72, Est GFR (MDRD) Af Amer 69, Est GFR (MDRD) Non-Af 57 L, BUN/Creatinine Ratio 53.1 H, Glucose 97, Calcium 8.4 L, Magnesium 2.6, Total Bilirubin 0.80, AST 24, ALT 37, Alkaline Phosphatase 130 H, Total Protein 5.5 L, Albumin 2.5 L, Globulin 3.0, A lbumin/Globulin Ratio 0.8 L, Triglycerides 49, Cholesterol 87, LDL Cholesterol 28, VLDL Cholesterol 10, HDL Cholesterol 49, TSH 1.540 Physical Exam Const alert, oriented x3 and no apparent distress Constitutional Narrative: Elderly male, class II obesity, chronically ill-appearing, mildly fatigued appearing, otherwise sitting up fairly comfortably in bed, answering questions appropriately, in no acute distress. General Appearance: cooperative and comfortable HEENT normocephalic, head/scalp atraumatic, hearing grossly normal bilaterally and nasal mucous membranes and turbinates normal Eyes PERRL, EOMs intact bilaterally and conjunctivae normal Neck supple Chest inspection of chest normal Resp normal respiratory effort and no use of accessory muscles Resp Narrative: Breathing comfortably on 2 L nasal cannula at rest. Decreased breath sounds in bilateral lung bases with crackles noted in mid lung zones bilaterally. No wheezing noted. Cardio no murmurs and peripheral pulses 2+ throughout Cardio Narrative: A-fib, rate controlled. GI normal to inspection, nondistended, normoactive bowel sounds, soft to palpation, non-tender and non-distended Back/Spine normal ROM Extremity Extremity Narrative: +4 lower extremity pitting edema noted up to the knees. Nahid wrap is in place. Neuro moves all extremities and no focal motor deficits Psych mental status grossly normal Psych Narrative: Flat affect. Assessment & Plan Assessment/Plan (1) Acute HFrEF (heart failure with reduced ejection fraction): (2) Localized swelling of both lower legs: (3) Debility: PLAN: Plan Patient is an 84-year-old male who presented [facility] ED on 06/30/2024 with worsening volume overload. 1. Recurrent acute HFrEF with mild acute on chronic hypoxic respiratory failure, adult failure to thrive ? Cardiology following. Patient with stage IV heart failure, follows with outpatient cardiology. Recently hospitalized here from 06/21-06/25 with similar presentation. Had thoracentesis done with 1430 mL removed and treated with IV Lasix drip with good urine output and improvement in volume status. Patient unfortunately had recurrence of overt volume overload within days after discharge. Initially re-presented to [facility] and was then transferred here for further management. Treating again with IV Lasix drip at 10 mL/hr and tolerating MAP goal greater than 55. Had discussion with patient and family on 07/01 regarding goals of care. Patient has capacity and was agreeable to discussing hospice care. Hospice consulted and plan is for conversation with family tomorrow morning. Continue to monitor daily BMP and urine output for now. 2. Persistent A-fib on Coumadin ? In rate controlled A-fib on admit. Continue home warfarin and digoxin. 4. History of CAD with CABG and stenting, history of HFrEF and V. tach/fib with ICD placement, hypertension, hyperlipidemia ? Follows with outpatient cardiology. Continue home aspirin and statin. Holding all other home medications. 5. CKD stage IIIa ? Creatinine 1.28 on admit, at baseline. Monitor daily BMP. 6. Venous stasis dermatitis with ulcerations, stage II sacral ulcer ? Wound care followed during previous admission. Continue with Kerlix and nahid wraps as tolerated. Chronic medical conditions: ? Class I obesity: BMI 30 on admit. Complicates hospital course, care and prognosis. ? Anxiety: Stable. Continue home clonazepam 3 times daily as needed. ? BPH with obstructive symptoms. Continue home Flomax. ? Mild chronic anemia: Hemoglobin 10.5 on admit, at baseline. DVT prophylaxis: Not indicated, on warfarin CODE STATUS: DNR CCA, DNI Expected disposition: TBD Total clinical time spent by myself addressing the patient's medical issues, reviewing all the data, and collaborating with patient's care team: 50 minutes. Charges/Coding Visit Charges Inpatient E&M: 74258 [facility] L3
[2024-07-01] MEDS: Warfarin (BKC) 3 MG Tablet PO (17:21)
[2024-07-01] MEDS: oxyCODONE 5 MG Tablet PO (19:00)
[2024-07-01] MEDS: Aspirin E.C. 81 MG Tablet PO (21:50)
[2024-07-01] MEDS: Tamsulosin HCl 0.4 MG Capsule PO (21:52)
[2024-07-01] MEDS: Atorvastatin Calcium 10 MG Tablet PO (21:53)
[2024-07-02] VITALS (10 sets, daily range): BP systolic 90–115; BP diastolic 55–78; PULSE 72–88; RESP 14–24; TEMP 36.4–36.8; O2SAT 90–99; BMI 30.9; BMI 29.6
[2024-07-02 04:45] LABS: Hematocrit 35.3 % (40-54); Hemoglobin 10.7 g/dL (13.0-16.5); Mean Corp Hgb Conc 30.3 g/dL (32-36); Mean Corpuscular Hgb 30.7 pg (27.0-32.0); Mean Corpuscular Volume 101.4 fL (80-94); Mean Platelet Vol. 10.6 fl (6.2-12.0); POSITIVE MORPHOLOGY YES; Platelet Count 171 K/mm3 (150-450); RBC Distribution Width CV 17.8 % (11.6-14.6); RBC Distribution Width SD 66.9 fl (35.1-43.9); Red Blood Count 3.48 M/mm3 (4.6-6.2); White Blood Count 8.3 K/mm3 (4.4-11.0)
[2024-07-02 04:55] LABS: Scan Indicated on CBC? Y/N YES- FLAGS NOTED
[2024-07-02 04:57] LABS: International Normalized Ratio 1.4; Prothrombin Time (Protime)PT. 17.5 SECONDS (11.7-14.9)
[2024-07-02 05:17] LABS: Anion Gap 4 (5-15); BUN 70 mg/dL (7-18); BUN/Creat Ratio 52.6 RATIO (10-20); Calcium,Total 8.5 mg/dL (8.5-10.1); Chloride 94 mmol/L (98-107); Creatinine, Serum 1.33 mg/dL (0.70-1.30); EST Glomerular Filtration Rate 55 mL/min (>60); Est Glom Filt Rate - Afr Amer 66 mL/min (>60); Estimated Creatinine Clearance 37.76 ml/min; Glucose 106 mg/dL (74-106); Potassium 4.9 mmol/L (3.5-5.1); Sodium Level 130 mmol/L (136-145)
[2024-07-02] MEDS: clonazePAM 0.5 MG Tablet PO ×2 (06:51→13:48)
--- NOTE | 2024-07-02 09:44 | PN.CARD_ITS ---
Subjective Subjective Patient seen and evaluated. His family is in the room with him. Objective Data Vital Signs: Vital Signs Temp Pulse Resp BP Pulse Ox O2 Del Method O2 Flow Rate 98.2 F 88 20 H 90/78 96 Nasal Cannula 2 07/02/24 03:00 07/02/24 03:00 07/02/24 03:00 07/02/24 03:00 07/02/24 07:41 07/02/24 07:41 07/02/24 07:41 Oxygen Flow Rate (L/min) 2 Oxygen Delivery Method Nasal Cannula Weight: 162 lb 0.636 oz Body Mass Index (BMI) 29.6 Intake & Output: Intake and Output for Last 24 Hours 06/30/24 07/01/24 07/02/24 23:59 23:59 23:59 Intake Total 1034.83 / 1214.83 420 / 420 Output Total 1725 / 2075 750 / 750 Balance -690.17 / -860.17 -330 / -330 Lab / Micro Data 07/02/24 03:53 07/02/24 03:53 Labs: Laboratory Results - last 24 hr 07/02/24 03:53: WBC 8.3, RBC 3.48 L, Hgb 10.7 L, Hct 35.3 L, MCV 101.4 H, MCH 30.7, MCHC 30.3 L, RDW Std Deviation 66.9 H, RDW Coeff of Abdirahman 17.8 H, Plt Count 171, MPV 10.6, PT 17.5 H, INR 1.4, Sodium 130 L, Potassium 4.9, Chloride 94 L, Carbon Dioxide 32.0, Anion Gap 4 L, BUN 70 H, Creatinine 1.33 H, Estim Creat Clear Calc 37.76, Est GFR (MDRD) Af Amer 66, Est GFR (MDRD) Non-Af 55 L, B UN/Creatinine Ratio 52.6 H, Glucose 106, Calcium 8.5 Cardiology Labs/Tests 07/02/24 03:53: WBC 8.3, RBC 3.48 L, Hgb 10.7 L, Hct 35.3 L, MCV 101.4 H, MCH 30.7, MCHC 30.3 L, Plt Count 171, MPV 10.6, PT 17.5 H, INR 1.4, Sodium 130 L, Potassium 4.9, Chloride 94 L, Carbon Dioxide 32.0, Anion Gap 4 L, BUN 70 H, C reatinine 1.33 H, Est GFR (MDRD) Af Amer 66, Est GFR (MDRD) Non-Af 55 L, B UN/Creatinine Ratio 52.6 H, Glucose 106, Calcium 8.5 Rhythm: EKG: ECHO: Stress Test: Cardiac Cath: PCI: CT Surgery: Holter monitor: EPS: PPM: CXR: Chest CT Scan: Physical Exam Const alert, oriented x3 and no apparent distress Constitutional Narrative: Elderly male, class II obesity, chronically ill-appearing, mildly fatigued appearing, otherwise sitting up fairly comfortably in bed, answering questions appropriately, in no acute distress. General Appearance: cooperative and comfortable HEENT normocephalic, head/scalp atraumatic, hearing grossly normal bilaterally and nasal mucous membranes and turbinates normal Eyes PERRL, EOMs intact bilaterally and conjunctivae normal Neck supple Chest inspection of chest normal Resp normal respiratory effort and no use of accessory muscles Resp Narrative: Breathing comfortably on 2 L nasal cannula at rest. Decreased breath sounds in bilateral lung bases with crackles noted in mid lung zones bilaterally. No wheezing noted. Cardio no murmurs and peripheral pulses 2+ throughout Cardio Narrative: A-fib, rate controlled. GI normal to inspection, nondistended, normoactive bowel sounds, soft to palpation, non-tender and non-distended Back/Spine normal ROM Extremity Extremity Narrative: +4 lower extremity pitting edema noted up to the knees. Nahid wrap is in place. Neuro moves all extremities and no focal motor deficits Psych mental status grossly normal Psych Narrative: Flat affect. Assessment & Plan Assessment/Plan (1) Acute exacerbation of chronic heart failure: PLAN: He does have an acute on chronic exacerbation of heart failure. His ejection fraction as you know is approximately 25%. His blood pressure has not really allowed as to titrate up his medications he had been on beta-mert in the past and then also on hydralazine and isosorbide with difficulty maintaining his blood pressure. * At this time I would recommend that we diurese him switching him from IV to oral medication. * It is my understanding that he has been seen by the hospice nurse and arrangements are being made to transition him. (2) H/O coronary artery bypass surgery: PLAN: He is status post coronary bypass surgery. Cardiac catheterization 2022 demonstrated patency of the ARIZMENDI as well as the saphenous vein graft to the obtuse marginal branch. Will continue current medical therapy with cardiac enzymes being normal. (3) Ischemic cardiomyopathy: PLAN: He does have severe ischemic cardiomyopathy. Will continue to optimize medical therapy as noted above. (4) Essential hypertension: PLAN: His blood pressure is actually borderline low at this time and no antihypertensive therapy will be instituted. (5) History of implantable cardiac defibrillator (ICD): PLAN: He is status post implantable defibrillator. He has not had any defibrillator discharges recently to suggest V. tach. Will make sure that his potassium is in the normal range. (6) Longstanding persistent atrial fibrillation: PLAN: He does have longstanding persistent atrial fibrillation with a controlled ventricular response rate. We may try him on p.o. digoxin to help with the heart rate and he will continue with anticoagulation. Thank you for allowing me to participate in the care of your patient. Please don't hesitate to call if any issues arise.
[2024-07-02] MEDS: Acetaminophen 325 MG Tablet 650 MG PO (09:56)
[2024-07-02] MEDS: Digoxin 125 MCG Tablet PO (09:56)
[2024-07-02] MEDS: Potassium Chloride Oral Tablet 20 MEQ PO (09:56)
--- NOTE | 2024-07-02 10:14 | DS.PCM_ITS ---
Providers Date of Admission: 06/30/24 Primary Care Physician: Dr. Handy Beltran, Consultations 06/30/24 17:19 Consult: Cardiology Routine Consulting Provider: Miguel Farley Reason for Consult: HF exacerbation, acute on chronic hypoxia EMERGENT Consult: No MD Notified: Yes Date Notified: 06/30/24 Time Notified: 17:23 Method of Notification: ED Physician Initiated Consult: Onc/Wound/paper stripper Routine Comment: Reason for Consult:: BL LE stasis blister wounds 07/01/24 13:00 Consult: Hospice / Palliative Care Routine Consulting Provider: [facility] Reason for Consult: end stage CHF EMERGENT Consult: No MD Notified: Yes Date Notified: 07/01/24 Time Notified: 13:00 Method of Notification: Answering Service Reason For Visit: ACUTE ON CHRONIC HYPOXIA, HF EXACERBATION Diagnosis Discharge Diagnosis (1) Acute exacerbation of chronic heart failure: Status: Acute Code(s): I50.9 - Heart failure, unspecified (2) H/O coronary artery bypass surgery: Status: Acute Code(s): Z95.1 - Presence of aortocoronary bypass graft (3) Ischemic cardiomyopathy: Status: Acute Code(s): I25.5 - Ischemic cardiomyopathy (4) Essential hypertension: Status: Acute Code(s): I10 - Essential (primary) hypertension (5) History of implantable cardiac defibrillator (ICD): Status: Acute Code(s): Z95.810 - Presence of automatic (implantable) cardiac defibrillator (6) Longstanding persistent atrial fibrillation: Status: Acute Code(s): I48.11 - Longstanding persistent atrial fibrillation Medications at Discharge Home Medications clonazepam 0.5 mg tablet (Klonopin) 0.5 mg PO TID anxiety 08/11/13 ascorbic acid (vitamin C) 500 mg tablet 1,000 mg PO DAILY@0800 supplement 07/11/15 aspirin 81 mg tablet,delayed release 81 mg PO QHS heart health 07/11/15 vit C 250 mg-vit E 90 mg-zinc 40 mg-copper 1 [id number] capsule (PreserVision AREDS-2) 1 tab PO BID eye vitamin 02/24/21 cholecalciferol (vitamin D3) 125 mcg (5,000 unit) tablet 125 mcg PO DAILY supplement 03/05/23 atorvastatin 10 mg tablet 10 mg PO QHS cholesterol #90 tabs 09/06/23 tamsulosin 0.4 mg capsule 0.4 mg PO QHS Prostate 10/13/23 warfarin 2 mg tablet 2 mg PO .COMPLEX blood thinner #90 TABLETS 02/17/24 warfarin 3 mg tablet 3 mg PO 4XW blood thinner #60 tabs 05/22/24 albuterol sulfate 90 mcg/actuation aerosol inhaler 2 puff inhalation Q4H PRN PRN wheezing 05/23/24 carvedilol 3.125 mg tablet (Coreg) 3.125 mg PO BID 30 days #60 tabs 06/25/24 guaifenesin 600 mg tablet, extended release 12 hr (Mucinex) 600 mg PO BID PRN congestion 30 days #0 tabs 06/25/24 torsemide 20 mg tablet 20 mg PO BID 30 days #60 tabs 06/25/24 digoxin 125 mcg (0.125 mg) tablet 125 mcg PO DAILY #0 tabs 07/02/24 Hospital Course Operations None Procedures None Summary of Care Provided Minutes Spent on Discharge: 35 Hospital Course: Patient is an 84-year-old male who presented to [facility] on 06/30/2024 as a transfer from [facility] with worsening volume overload. Hospital course as noted below. Patient discharged to inpatient hospice on 07/02. 1. Recurrent acute HFrEF with mild acute on chronic hypoxic respiratory failure, adult failure to thrive ? Cardiology followed. Patient with stage IV heart failure, follows with outpatient cardiology. Recently hospitalized here from 06/21-06/25 with similar presentation. Had thoracentesis done with 1430 mL removed and treated with IV Lasix drip with good urine output and improvement in volume status. Patient unfortunately had recurrence of overt volume overload within days after discharge. Initially re-presented to [facility] and was then transferred here for further management. Treating again with IV Lasix drip at 10 mL/hr and tolerating MAP goal greater than 55. Had discussion with patient and family on 07/01 regarding goals of care. Patient has capacity and was agreeable to discussing hospice care. Hospice evaluated and patient was discharged to inpatient hospice on 07/02. Continued p.o. torsemide 20 mg twice daily on discharge. 2. Persistent A-fib on Coumadin ? In rate controlled A-fib on admit. Continue home warfarin and digoxin. 4. History of CAD with CABG and stenting, history of HFrEF and V. tach/fib with ICD placement, hypertension, hyperlipidemia ? Follows with outpatient cardiology. Continue home aspirin and statin. Held all other home medications. 5. CKD stage IIIa ? Creatinine 1.28 on admit, at baseline. Monitor daily BMP. 6. Venous stasis dermatitis with ulcerations, stage II sacral ulcer ? Wound care followed during previous admission. Continue with Kerlix and nahid wraps as tolerated. Chronic medical conditions: ? Class I obesity: BMI 30 on admit. Complicated hospital course, care and prognosis. ? Anxiety: Stable. Continue home clonazepam 3 times daily as needed. ? BPH with obstructive symptoms. Continue home Flomax. ? Mild chronic anemia: Hemoglobin 10.5 on admit, at baseline. Total clinical time spent by myself addressing the patient's medical issues, reviewing all the data, and collaborating with patient's care team: 35 minutes. Physical Exam Const alert, oriented x3 and no apparent distress Constitutional Narrative: Elderly male, class II obesity, chronically ill-appearing, mildly fatigued appearing, otherwise sitting up fairly comfortably in bed, answering questions appropriately, in no acute distress. General Appearance: cooperative and comfortable HEENT normocephalic, head/scalp atraumatic, hearing grossly normal bilaterally and nasal mucous membranes and turbinates normal Eyes PERRL, EOMs intact bilaterally and conjunctivae normal Neck supple Chest inspection of chest normal Resp normal respiratory effort and no use of accessory muscles Resp Narrative: Breathing comfortably on 2 L nasal cannula at rest. Decreased breath sounds in bilateral lung bases with crackles noted in mid lung zones bilaterally. No wheezing noted. Cardio no murmurs and peripheral pulses 2+ throughout Cardio Narrative: A-fib, rate controlled. GI normal to inspection, nondistended, normoactive bowel sounds, soft to palpation, non-tender and non-distended Back/Spine normal ROM Extremity Extremity Narrative: +4 lower extremity pitting edema noted up to the knees. Nahid wrap is in place. Neuro moves all extremities and no focal motor deficits Psych mental status grossly normal Psych Narrative: Flat affect. Weight / BMI Weight Weight: 73.5 kg Body Mass Index (BMI) 29.6 ABG / Lab / Microbiology Data 07/02/24 03:53 07/02/24 03:53 Laboratory: Laboratory Results - last 24 hr 07/02/24 03:53: WBC 8.3, RBC 3.48 L, Hgb 10.7 L, Hct 35.3 L, MCV 101.4 H, MCH 30.7, MCHC 30.3 L, RDW Std Deviation 66.9 H, RDW Coeff of Abdirahman 17.8 H, Plt Count 171, MPV 10.6, PT 17.5 H, INR 1.4, Sodium 130 L, Potassium 4.9, Chloride 94 L, Carbon Dioxide 32.0, Anion Gap 4 L, BUN 70 H, Creatinine 1.33 H, Estim Creat Clear Calc 37.76, Est GFR (MDRD) Af Amer 66, Est GFR (MDRD) Non-Af 55 L, B UN/Creatinine Ratio 52.6 H, Glucose 106, Calcium 8.5 D/C Instructions DC O2, CPAP, BIPAP Needs Home O2 Discharge instructions: No Meaningful Use Info Meaningful Use Meaningful Use Diagnoses (Choose all that apply): None applicable Ischemic Stroke Statin Dosing Therapy Reference: STATIN DOSE THERAPY REFERENCE: * Patients > 75 years receive moderate or high dose statin therapy. * Patients 75 years or YOUNGER should receive HIGH intensity statin dose unless contraindicated. You will be required to document reason for non-treatment if statin daily dose does not meet guidelines. HIGH DOSE STATIN THERAPY DAILY Atorvastatin > than or = to 40 mg Rosuvastatin > than or = to 20 mg Amlodipine + Atorvastatin > than or = to 2.5/40 mg Ezetimibe + Simvastatin 10/80 mg Simvastatin 80mg Discharge Plan Admission Admit Date/Time: 06/30/24 17:26 Primary Reason for Your Visit: volume overload Attending Provider: Gigi Sebastian Primary Care Provider: Handy Beltran Consulting Providers: Miguel Farley; Patti Ortiz; Angelito Carlson; Pau Deutsch; Tess Sheffield; Milka Dia; Jennifer Hanson [employer]SET REPA[employer]ER; Moraima Bradley Discharge Orders/Prescriptions Prescriptions: New digoxin 125 mcg (0.125 mg) Tablet 125 mcg PO DAILY Qty: 0 0RF Continued cholecalciferol (vitamin D3) 125 mcg (5,000 unit) tablet 125 mcg PO DAILY clonazepam [Klonopin] 0.5 MG tablet 0.5 mg PO TID Patient Comments: ANXIETY aspirin 81 MG tablet 81 mg PO QHS Patient Comments: HEART ascorbic acid (vitamin C) 500 MG tablet 1,000 mg PO DAILY@0800 Patient Comments: SUPPLEMENT PreserVision AREDS-2 250-90-40-1 mg Capsule 1 tab PO BID albuterol sulfate 90 mcg/actuation HFA aerosol inhaler 2 puff inhalation Q4H PRN PRN (Reason: wheezing) carvedilol [Coreg] 3.125 mg tablet 3.125 mg PO BID 30 Days Qty: 60 2RF Rx Instructions: must administer with a meal/food torsemide 20 mg tablet 20 mg PO BID 30 Days Qty: 60 0RF guaifenesin [Mucinex] 600 mg tablet extended release 12hr 600 mg PO BID PRN (Reason: congestion) 30 Days Qty: 0 0RF atorvastatin 10 mg tablet 10 mg PO QHS Qty: 90 3RF tamsulosin 0.4 mg capsule 0.4 mg PO QHS warfarin 2 mg tablet 2 mg PO .COMPLEX Qty: 90 4RF Protocol: Dose Management Condition: Wednesday Dose/Route: 3 mg Instruction: 1 x 3 mg tablet Condition: Wednesday Dose/Route: 2 mg Instruction: 1 x 2 mg tablet Condition: Wednesday Dose/Route: 2 mg Instruction: 1 x 2 mg tablet Condition: Wednesday Dose/Route: 2 mg Instruction: 1 x 2 mg tablet Condition: Dose/Route: 2 mg Instruction: 1 x 2 mg tablet Condition: Wednesday Dose/Route: 2 mg Instruction: 1 x 2 mg tablet Condition: Wednesday Dose/Route: 3 mg Instruction: 1 x 3 mg tablet Protocol Text: Adjustment Start Date: 06/29/24 INR Value: 1.9 INR Date: 06/29/24 Recheck Date: 07/06/24 Patient Comments: Pt states he takes Wednesday, Wednesday, , Wednesday & Wednesday Rx Instructions: 2 mg orally daily Wed-Wed and 3mg Wed and Sundays; or use as directed; warfarin 3 mg tablet 3 mg PO 4XW Qty: 60 3RF Protocol: Dose Management Condition: Wednesday Dose/Route: 3 mg Instruction: 1 x 3 mg tablet Condition: Wednesday Dose/Route: 2 mg Instruction: 1 x 2 mg tablet Condition: Wednesday Dose/Route: 2 mg Instruction: 1 x 2 mg tablet Condition: Wednesday Dose/Route: 2 mg Instruction: 1 x 2 mg tablet Condition: Dose/Route: 2 mg Instruction: 1 x 2 mg tablet Condition: Wednesday Dose/Route: 2 mg Instruction: 1 x 2 mg tablet Condition: Wednesday Dose/Route: 3 mg Instruction: 1 x 3 mg tablet Protocol Text: Adjustment Start Date: 06/29/24 INR Value: 1.9 INR Date: 06/29/24 Recheck Date: 07/06/24 Patient Comments: Pt takes Wednesday, Wednesday, Wednesday Rx Instructions: Use as directed Discontinued potassium chloride 20 mEq tablet extended release 20 meq PO DAILY 30 Days Qty: 30 0RF isosorbide mononitrate 30 mg tablet extended release 24 hr 30 mg PO DAILY Qty: 90 3RF hydralazine 10 mg tablet 10 mg PO TID 90 Days Qty: 270 3RF Referrals / Follow Up: Handy Beltran DO [Primary Care Provider] - Disposition Disposition (needs filled in before D/C Order can be placed): Hospice in Medical Facility Charges/Coding Visit Charges Inpatient E&M: 07125 Disch Hosp >30min
--- NOTE | 2024-07-02 12:38 | NURSING ---
report called to hospice [facility] to [facility]
[2024-07-02] MEDS: oxyCODONE 5 MG Tablet PO (12:47)
== END 2024-07-02 14:05 | disposition hospice, inpatient (51) | DRG 291 ==
PROVIDERS: Admitting Provider Family Medicine; PCP Student in an Organized Health Care Education/Training Program; Visit Provider Hospitalist
DX: I13.0 Hypertensive heart and chronic kidney disease with heart failure and stage 1 through stage 4 chronic kidney disease, or unspecified chronic kidney disease (principal); J96.21 Acute and chronic respiratory failure with hypoxia; I50.43 Acute on chronic combined systolic (congestive) and diastolic (congestive) heart failure; I69.354 Hemiplegia and hemiparesis following cerebral infarction affecting left non-dominant side; I48.11 Longstanding persistent atrial fibrillation; N13.8 Other obstructive and reflux uropathy; L89.152 Pressure ulcer of sacral region, stage 2; Z51.5 Encounter for palliative care; Z66 Do not resuscitate; N18.31 Chronic kidney disease, stage 3a; D64.9 Anemia, unspecified; Z68.30 Body mass index [BMI] 30.0-30.9, adult; I50.84 End stage heart failure; I25.10 Atherosclerotic heart disease of native coronary artery without angina pectoris; E78.5 Hyperlipidemia, unspecified; I25.5 Ischemic cardiomyopathy; I87.2 Venous insufficiency (chronic) (peripheral); F41.9 Anxiety disorder, unspecified; R62.7 Adult failure to thrive; R53.81 Other malaise; Z79.01 Long term (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 of 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; Z95.5 Presence of coronary angioplasty implant and graft; Z79.82 Long term (current) use of aspirin; Z95.810 Presence of automatic (implantable) cardiac defibrillator; E66.811 Obesity, class 1; N40.1 Benign prostatic hyperplasia with lower urinary tract symptoms; Z95.1 Presence of aortocoronary bypass graft
CPT/HCPCS: 36415; 80048; 80053; 80061; 83735; 84443; 84484; 85025; 85027; 85610; 93005; 97162; 97166; 97802; J1940